=== PATIENT | female | born 2000 | race African-American/Black ===

== ENCOUNTER 2023-03-18 10:43 | Emergency (ER) | payer MEDICAID, SELFPAY ==
[2023-03-18 10:46] VITALS: BP 119/76; PULSE 85; RESP 18; TEMP 36.6; O2SAT 97; BMI 30.6
--- NOTE | 2023-03-18 11:00 | ED_ITS ---
HPI - General Chief complaint: OB/Uterine Contractions Stated complaint: ISSUES 6 WEEKS AND 3 DAYS Time Seen by Provider: 03/18/23 11:00 Source: patient Mode of arrival: walk-in Limitations: no limitations History of Present Illness HPI Narrative: Patient presents to emergency department complaining of abdominal cramping. Patient states she is 6 weeks' gestation has not seen an GEOTHERMAL SYSTEM INSTALLER. Her GEOTHERMAL SYSTEM INSTALLER is Dr. Hodge. She states in the last 3 days she's had intermittent cramping and she is concerned as she is a G2. P0 1. She had a miscarriage in the 1st trimester with her previous . She denies any vaginal bleeding, discharge. She does not know what his her type and Rh. Patient denies any trauma. She denies any fever, chills, or cough. She denies any chest, shortness of breath. She denies any nausea, vomiting, diarrhea, or constipation. Related Data Home Medications Medication Instructions Recorded Confirmed No Known Home Medications 03/18/23 03/18/23 Allergies Allergy/AdvReac Type Severity Reaction Status Date / Time No Known Drug Allergies Allergy Verified 03/18/23 10:51 Review of Systems ROS Status of ROS 10 or more systems reviewed and unremarkable except as noted in history and below Exam Narrative Exam Narrative: Nurses notes and vital signs reviewed and patient is not hypoxic. General: Nontoxic, Well-appearing and in no apparent distress. Skin: Warm, dry, no pallor noted. No Rash Head: Normocephalic, atraumatic. Neck: Supple, non-tender. Eye: Pupils are equal, round and EOMI. No scleral icterus. Ears, Nose, Mouth, and Throat: TM clear, no posterior oropharynx erythema or nasal mucosal hypertrophy, uvula is mid-line Oral mucosa is moist Cardiovascular: Regular Rate and Rhythm without murmur, gallop or rub. Respiratory: No accessory muscle use or respiratory distress. Lungs are clear to auscultation, no wheezing, rales or rhonchi Chest Wall: no tenderness Back: No midline thoracic or lumbar vertebral tenderness. No CVA tenderness Musculoskeletal: normal ROM, no calf or popliteal tenderness, no lower extremity edema/swelling GI: Abdomen is soft, non-distended. Normal bowel sounds. No masses appreciated. No tenderness to palpation. No rebound, guarding, or rigidity noted. Neurological: A&O x4. No cranial nerve dysfunction observed. No truncal ataxia. Moves all extremities. Sensation intact. Psychiatric: Cooperative and interactive. Normal mood and affect. Constitutional Vital Signs, click to edit/add: Last Vital Signs Temp 98 F 03/18/23 10:46 Pulse 85 03/18/23 10:46 Resp 18 03/18/23 10:46 BP 119/76 03/18/23 10:46 Pulse Ox 97 03/18/23 10:46 O2 Del Method Room Air 03/18/23 10:46 Course Vital Signs Vital signs: Vital Signs Temperature 98 F 03/18/23 10:46 Pulse Rate 85 03/18/23 10:46 Respiratory Rate 18 03/18/23 10:46 Blood Pressure 119/76 03/18/23 10:46 Pulse Oximetry 97 03/18/23 10:46 Oxygen Delivery Method Room Air 03/18/23 10:46 Temperature 98 F 03/18/23 10:46 Pulse Rate 85 03/18/23 10:46 Respiratory Rate 18 03/18/23 10:46 Blood Pressure 119/76 03/18/23 10:46 Pulse Oximetry 97 03/18/23 10:46 Oxygen Delivery Method Room Air 03/18/23 10:46 MDM - OB/Uterine Contractions MDM Narrative Medical decision making narrative: Pelvic ultrasound was done and a quantitative level was obtained. Live intrauterine 6 weeks 4 days. Quantitative levels are stable. pt was reassured. She is stable for outpatient follow-up and treatment. At this time the patient is without objective evidence of an acute process requiring hospitalization or inpatient management. The patient has remained hemodynamically stable. No additional indication for emergent studies at this time. I answered all questions. Discussed discharge instructions including standard anticipatory guidance and what should prompt a return to the emergency department, including if they get worse are not getting better or develops any new or concerning symptoms. I've given them specific time frame in which to follow-up, and who to follow-up with. The patient demonstrates understanding. Patient is nontoxic and stable for discharge with outpatient follow-up. This note was created with the assistance of a speech recognition program. Although the intention is to generate documents that actually reflects the content of the visit, no guarantees can be provided that every mistake has been identified and corrected by editing. Lab Data Attestation: I reviewed the patient's lab results. Labs: Lab Results 03/18/23 03/18/23 Range/Units 11:11 11:12 HCG, Quant 46845 mIU/mL Urine Color Yellow (YELLOW) Urine Clarity Clear (CLEAR) Urine pH 7.0 (5.0-9.0) Ur Specific [place] 1.015 (1.005-1.025) Urine Protein Negative (NEG/TRACE) mg/dL Urine Glucose (UA) Negative (NEGATIVE) mg/dL Urine Ketones Negative (NEGATIVE) mg/dL Urine Occult Blood Negative (NEGATIVE) Urine Nitrite Negative (NEGATIVE) Urine Bilirubin Negative (NEGATIVE) Urine Urobilinogen 0.2 (0.2-1.0) EU/dL Ur Leukocyte Esterase Negative (NEGATIVE) Discharge Plan Discharge Chief Complaint: OB/Uterine Contractions Clinical Impression: Intrauterine normal Patient Disposition: Home, Self-Care Time of Disposition Decision: 12:30 Condition: Good Mode of Transportation: Private Vehicle Prescriptions / Home Meds: No Action No Known Home Medications Instructions: (ED) Stand Alone Forms: Portal Instructions Referrals: Andrzej Hodge DO [Physician] - 1 week Discharge Date/Time: 03/18/23 12:37
--- NOTE | 2023-03-18 11:00 | US_ITS ---
The [place] [id number] Patient Name: CAMERON CHAVEZ MRN: [id number] date: 2000 Sex: F Assigned Patient Location: ER Current Patient Location: ER Accession/Order Number: [id number] Exam Date: 03/18/2023 11:15 Report Date: 03/18/2023 12:23 At the request of: NATASHA CAMARA Procedure: US OB transvaginal EXAMINATION: US OB transvaginal HISTORY: preg, cramping COMPARISON: No relevant comparison available. FINDINGS: Transvaginal imaging Bonds intrauterine gestation Gestational sac: 1.41 cm, 5 weeks 4 days CRL: 0.66 cm, 6 weeks 4 days Yolk sac: 1.9 mm Heart rate: 1 21 bpm Cervix: Closed, 3.8 cm The right ovary is significant for 6.1 cm cystic lesion. Small amount of fluid surrounding the left ovary. Clinical age: 6 weeks 1 day Clinical FERN: 11/10/2023 Ultrasound age: 6 weeks 4 days Ultrasound FERN: 11/07/2023 US/US OB transvaginal IMPRESSION: Viable bonds intrauterine gestation measuring 6 weeks 4 days Electronically authenticated by: PIPPA ORTEGA Date: 03/18/2023 12:23
[2023-03-18 11:23] LABS: Bilirubin Urine NEGATIVE (NEGATIVE); Blood Urine NEGATIVE (NEGATIVE); Clarity Urine CLEAR (CLEAR); Color Urine YELLOW (YELLOW); Glucose Urine UA NEGATIVE (NEGATIVE); Ketones Urine NEGATIVE (NEGATIVE); Leukocyte Esterase Urine NEGATIVE (NEGATIVE); Nitrite Urine NEGATIVE (NEGATIVE); Protein Urine NEGATIVE (NEG/TRACE); Specific Gravity Urine 1.015 (1.005-1.025); Urobilinogen Urine 0.2 EU/dL (0.2-1.0)
[2023-03-18 11:25] LABS: Urine Microscopic Indicated NO
[2023-03-18 12:12] LABS: HCG Quantitative 27147 mIU/mL
== END 2023-03-18 12:37 | disposition home or self-care (01) ==
PROVIDERS: Emergency Provider Emergency Medicine
DX: O26.891 Other specified pregnancy related conditions, first trimester (principal); R10.9 Unspecified abdominal pain; Z3A.01 Less than 8 weeks gestation of pregnancy
CPT/HCPCS: 36415; 76817; 81003; 84702; 99284

== ENCOUNTER 2023-04-04 13:11 | Emergency (ER) | payer MEDICAID, SELFPAY ==
[2023-04-04 13:13] VITALS: BP 123/73; PULSE 89; RESP 18; O2SAT 98; BMI 27.8
== END 2023-04-04 13:40 | disposition left against medical advice (07) ==
PROVIDERS: Emergency Provider Emergency Medicine
DX: Z53.21 Procedure and treatment not carried out due to patient leaving prior to being seen by health care provider (principal)

== ENCOUNTER 2023-04-08 17:03 | Emergency (ER) | payer MEDICAID, SELFPAY ==
[2023-04-08 17:09] VITALS: BP 135/84; PULSE 70; RESP 20; TEMP 36.7; O2SAT 99; BMI 30.7
--- NOTE | 2023-04-08 17:19 | ED_ITS ---
HPI - Abdominal Pain General Chief Complaint: Abdominal Pain Stated Complaint: Adbominal Pain Time Seen by Provider: 04/08/23 17:08 Mode of arrival: walk-in History of Present Illness HPI narrative: 22-year-old female presents for abdominal pain. She's , between nine and ten weeks. She's had no vaginal bleeding and the pain has been moving around her abdomen and she's worried about having a miscarriage. She's been one time previously and had a miscarriage at nine weeks. No trauma fever or vomiting or back pain. Related Data Home Medications Medication Instructions Recorded Confirmed DAILY 04/08/23 Allergies Allergy/AdvReac Type Severity Reaction Status Date / Time No Known Drug Allergies Allergy Verified 03/18/23 10:51 Review of Systems ROS Narrative A ten point review of systems is negative except as noted above. PFSH PFS Social History Smoking status: Current every day smoker Exam Narrative Exam Narrative: Nurses note and vital signs reviewed and patient is not hypoxic. General: The patient appears well and in no apparent distress. Patient is resting comfortably on cart. Skin: Warm, dry, no pallor noted. There is no rash noted. Head: Normocephalic, atraumatic Eye: Normal conjunctiva, no drainage Ears, Nose, Mouth, and Throat: oral mucosa is moist. Nares patent. Cardiovascular: Regular Rate and Rhythm Respiratory: Patient is in no distress, no accessory muscle use, lungs are clear to auscultation, no wheezing, rales or rhonchi Back: non-tender, no CVA tenderness bilaterally to percussion. GI: soft, mild tenderness present diffusely Musculoskeletal: The patient has no evidence of calf tenderness, no pitting edema, symmetrical pulses noted bilaterally Neurological: A&O, normal speech Psychiatric: Cooperative Constitutional Vital Signs, click to edit/add: Last Vital Signs Temp 98.1 F 04/08/23 17:09 Pulse 70 04/08/23 17:09 Resp 20 04/08/23 17:09 BP 135/84 04/08/23 17:09 Pulse Ox 99 04/08/23 17:09 O2 Del Method Room Air 04/08/23 17:09 Course Vital Signs Vital signs: Vital Signs Temperature 98.1 F 04/08/23 17:09 Pulse Rate 70 04/08/23 17:09 Respiratory Rate 20 04/08/23 17:09 Blood Pressure 135/84 04/08/23 17:09 Pulse Oximetry 99 04/08/23 17:09 Oxygen Delivery Method Room Air 04/08/23 17:09 Temperature 98.1 F 04/08/23 17:09 Pulse Rate 70 04/08/23 17:09 Respiratory Rate 20 04/08/23 17:09 Blood Pressure 135/84 04/08/23 17:09 Pulse Oximetry 99 04/08/23 17:09 Oxygen Delivery Method Room Air 04/08/23 17:09 MDM - Abdominal Pain MDM Narrative Medical decision making narrative: ultrasound shows normal IUP and she is reassured and she'll be discharged home. Treatment diagnosis and follow up are discussed with the patient Differential Diagnosis Differential diagnosis: Likely other (miscarriage) Lab Data Attestation: I reviewed the patient's lab results. Labs: Lab Results 04/08/23 Range/Units 17:25 WBC 11.9 H (4.0-11.0) 10^3/uL RBC 4.02 L (4.20-5.40) 10^6/uL Hgb 11.1 L (12.0-16.0) g/dL Hct 33.6 L (36.0-48.0) % MCV 83.6 (81.0-99.0) fL MCH 27.6 (26.7-34.0) pg MCHC 33.0 (29.9-35.2) g/dL RDW 13.2 (11.0-15.0) % Plt Count 325 (150-450) 10^3/uL MPV 9.9 (9.5-13.5) fL Neut % (Auto) 69.1 (43.0-75.0) % Lymph % (Auto) 21.6 (20.5-60.0) % [place] % (Auto) 8.0 (1.7-12.0) % Eos % (Auto) 0.7 L (0.9-7.0) % Baso % (Auto) 0.3 (0.2-2.0) % Neut # (Auto) 8.2 H (1.4-6.5) 10^3/uL Lymph # (Auto) 2.6 (1.2-3.8) 10^3/uL [place] # (Auto) 1.0 H (0.3-0.8) 10^3/uL Eos # (Auto) 0.1 (0.0-0.7) 10^3/uL Baso # (Auto) 0.0 (0.0-0.1) 10^3/uL Abs Immat Gran (auto) 0.03 (0.00-0.03) 10^3/uL Imm/Tot Granulo (auto) 0.3 (0.0-0.5) % Sodium 134 L (136-145) mmol/L Potassium 3.5 (3.5-5.1) mmol/L Chloride 101 (98-107) mmol/L Carbon Dioxide 24.7 (21.0-32.0) mmol/L Anion Gap 11.8 BUN 7.0 (7.0-18.0) mg/dL Creatinine 0.62 (0.55-1.02) mg/dL Est GFR ( Amer) >60 (>=60) Est GFR (Non-Af Amer) >60 (>=60) BUN/Creatinine Ratio 11.3 Glucose 86 (74-106) mg/dL Calcium 8.9 (8.5-10.1) mg/dL HCG, Quant 74237 mIU/mL Imaging Data pelvic ultrasound: Radiologist's impression: Procedure: US OB transvaginal PROCEDURE: US OB transvaginal, 04/08/2023 5:45 PM EDT CLINICAL INDICATIONS: Encounter for first trimester , right-sided pelvic pain for one day 2 para 0, AB 1 Expected gestational age: 9 weeks 1 day Expected FERN: 11/10/2023 COMPARISON: 03/18/2023 TECHNIQUE: Transvaginal first trimester obstetric sonogram, grayscale color and spectral assessment. FINDINGS: Uterus is retroverted. A single intrauterine is identified. Intrauterine gestational sac, normal yolk sac, embryonic pole is seen. Cardiac activity is noted. 170 bpm Mean gestational sac size: 3.62 cm, 18 weeks 6 days Embryonic crown-rump length: 2.72 cm Sonographic gestational age: 9 weeks 2 days +/- 5 days Sonographic FERN 11/09/2023 No significant perigestational hemorrhage Maternal right ovary: 4.6 x 2.9 x 3.6 cm, volume 25 mL. Normal sonographic morphology. 2.1 cm maternal right ovarian corpus luteal cyst favored. Maternal left ovary: 2.2 x 2.0 x 2.0 cm, volume 4 mL. Normal sonographic morphology. 3.7 cm cervical length by transvaginal assessment, closed. DUPLEX PELVIC VASCULATURE: There is intact flow within the ovarian tissue bilaterally by color-flow assessment. Arterial spectral tracing is identified from within. Right resistive index 0.68. Left 0.32. IMPRESSION: 1. Single living intrauterine , sonographic gestational age of 9 weeks 2 days +/- 5 days. There is appropriate growth from previous exam 2. Sonographic FERN 11/09/2023 3. No perigestational hemorrhage 4. Retroverted uterus 5. 3.7 cm transvaginal cervical length, closed 6. 2.1 cm maternal right ovarian corpus luteal cyst 7. Normal maternal left ovarian sonographic morphology 8. No sonographic sign of maternal adnexal torsion Electronically authenticated by: LC EL Date: 04/08/2023 18:25 Discharge Plan Discharge Chief Complaint: Abdominal Pain Clinical Impression: Abdominal pain Patient Disposition: Home, Self-Care Time of Disposition Decision: 18:44 Condition: Good Mode of Transportation: Private Vehicle Prescriptions / Home Meds: No Action DAILY Instructions: Abdominal Pain in (ED) Stand Alone Forms: Portal Instructions Referrals: Physician,Non-Staff, MD [Primary Care Provider] - 1 week
[2023-04-08 17:32] LABS: Basophils Percent Auto 0.3 % (0.2-2.0); Eosinophils Absolute Auto 0.1 10^3/uL (0.0-0.7); Eosinophils Percent Auto 0.7 % (0.9-7.0); Hematocrit 33.6 % (36.0-48.0); Hemoglobin 11.1 g/dL (12.0-16.0); Immature Granulocytes Abs Auto 0.03 10^3/uL (0.00-0.03); Immature Granulocytes Pct Auto 0.3 % (0.0-0.5); Lymphocytes Absolute Auto 2.6 10^3/uL (1.2-3.8); Lymphocytes Percent Auto 21.6 % (20.5-60.0); Mean Corpuscular Hemoglobin 27.6 pg (26.7-34.0); Mean Corpuscular Volume 83.6 fL (81.0-99.0); Mean Platelet Volume 9.9 fL (9.5-13.5); Neutrophils Absolute Auto 8.2 10^3/uL (1.4-6.5); Neutrophils Percent Auto 69.1 % (43.0-75.0); Platelet Count 325 10^3/uL (150-450); Red Blood Count 4.02 10^6/uL (4.20-5.40); Red Cell Distribution Width 13.2 % (11.0-15.0); White Blood Count 11.9 10^3/uL (4.0-11.0)
[2023-04-08 18:09] LABS: Anion Gap 11.8; BUN Creatinine Ratio 11.3; Calcium 8.9 mg/dL (8.5-10.1); Carbon Dioxide 24.7 mmol/L (21.0-32.0); Chloride 101 mmol/L (98-107); Estimated GFR (African America >60 (>=60); Estimated GFR (Non-African Ame >60 (>=60); Glucose 86 mg/dL (74-106); Potassium 3.5 mmol/L (3.5-5.1); Sodium 134 mmol/L (136-145)
== END 2023-04-08 18:51 | disposition home or self-care (01) ==
PROVIDERS: Emergency Provider Emergency Medicine
DX: O26.891 Other specified pregnancy related conditions, first trimester (principal); R10.9 Unspecified abdominal pain; Z3A.09 9 weeks gestation of pregnancy; O99.331 Smoking (tobacco) complicating pregnancy, first trimester; F17.210 Nicotine dependence, cigarettes, uncomplicated
CPT/HCPCS: 36415; 76817; 80048; 84702; 85025; 99284

== ENCOUNTER 2023-04-14 13:02 | Outpatient (OUT) | payer MEDICAID, SELFPAY ==
[2023-04-14 14:19] LABS: Basophils Percent Auto 0.3 % (0.2-2.0); Eosinophils Absolute Auto 0.1 10^3/uL (0.0-0.7); Eosinophils Percent Auto 0.7 % (0.9-7.0); Hematocrit 35.7 % (36.0-48.0); Hemoglobin 11.3 g/dL (12.0-16.0); Immature Granulocytes Abs Auto 0.01 10^3/uL (0.00-0.03); Immature Granulocytes Pct Auto 0.1 % (0.0-0.5); Lymphocytes Absolute Auto 2.1 10^3/uL (1.2-3.8); Lymphocytes Percent Auto 22.3 % (20.5-60.0); Mean Corpuscular HGB Conc 31.7 g/dL (29.9-35.2); Mean Corpuscular Volume 85.2 fL (81.0-99.0); Mean Platelet Volume 10.6 fL (9.5-13.5); Monocytes Absolute Auto 0.8 10^3/uL (0.3-0.8); Neutrophils Absolute Auto 6.4 10^3/uL (1.4-6.5); Neutrophils Percent Auto 68.6 % (43.0-75.0); Platelet Count 343 10^3/uL (150-450); Red Blood Count 4.19 10^6/uL (4.20-5.40); Red Cell Distribution Width 13.2 % (11.0-15.0); White Blood Count 9.4 10^3/uL (4.0-11.0)
[2023-04-14 14:42] LABS: BOX Test Sent Out Y
[2023-04-14 15:28] LABS: Thyroid Stimulating Hormone 1.633 uIU/mL (0.358-3.740)
[2023-04-14 15:38] LABS: Estimated Average Glucose 105 mg/dL; Glycohemoglobin A1C 5.3 % (4.5-6.2)
[2023-04-15 06:08] LABS: HBsAg Screen Negative (Negative); HCV Ab Non Reactive (Non Reactive); HIV Ab/p24 Ag Screen Non Reactive (Non Reactive)
[2023-04-15 07:08] LABS: Rubella Antibodies, IgG 2.41 index (Immune >0.99)
[2023-04-15 10:08] LABS: Rapid Plasma Reagin, Quant Non Reactive titer (NonRea<1:1)
== END 2023-04-14 13:03 | disposition home or self-care (01) ==
LOC: LAB 13:06
PROVIDERS: Visit Provider Obstetrics & Gynecology
DX: Z34.80 Encounter for supervision of other normal pregnancy, unspecified trimester (principal); N92.6 Irregular menstruation, unspecified
CPT/HCPCS: 36415; 83036; 84443; 85025; 86592; 86762; 86803; 86850; 86900; 86901; 87086; 87340; 87389

== ENCOUNTER 2023-05-16 12:58 | Outpatient (OUT) | payer MEDICAID, SELFPAY ==
--- NOTE | 2023-05-16 12:59 | US_ITS ---
The [address] [address] Patient Name: CAMERON CHAVEZ MRN: [id number] date: 2000 Sex: F Assigned Patient Location: Current Patient Location: US Accession/Order Number: [id number] Exam Date: 05/16/2023 13:00 Report Date: 05/16/2023 22:09 At the request of: TERESITA ARTHUR Procedure: US OB <= 14 weeks fetus EXAMINATION: US OB <= 14 weeks fetus HISTORY: FOLLOW UP OVARIAN CYST COMPARISON: No relevant comparison available. FINDINGS: GESTATIONAL SAC: Present and normal appearing. YOLK SAC: Absent. POLE: Present and normal appearing. CARDIAC: 147 bpm UTERUS: Normal size and appearance. OVARIES: Right: Contains a slightly complex cyst, 1.4 cm in diameter; likely resolving corpus lutein cyst. Left: Normal. CUL-DE-SAC: Normal. OTHER: None. AGE BY LMP: 14 weeks 4 days FERN BY LMP: 11/10/2023 US/US OB <= 14 weeks fetus IMPRESSION: 1. Single live intrauterine . 2. Decrease in size of the right ovarian cyst favoring benign etiology. Electronically authenticated by: ASHLEY NOLE Date: 05/16/2023 22:09
== END 2023-05-16 12:59 | disposition home or self-care (01) ==
LOC: US 12:59
PROVIDERS: Visit Provider Obstetrics & Gynecology
DX: O34.82 Maternal care for other abnormalities of pelvic organs, second trimester (principal); N83.201 Unspecified ovarian cyst, right side; Z3A.14 14 weeks gestation of pregnancy
CPT/HCPCS: 76801; 76816

== ENCOUNTER 2023-06-21 11:04 | Outpatient (OUT) | payer MEDICAID, SELFPAY ==
[2023-06-23 02:06] LABS: AFP Value 65.8 ng/mL (.); Gest. Age on Collection Date 19.7 weeks (.); Insulin Dep Diabetes No (.); Maternal Age At EDD 24.3 yr (.); OSBR Risk 1 IN 10000 (.); Results Report (.)
== END 2023-06-21 11:05 | disposition home or self-care (01) ==
PROVIDERS: Visit Provider Physician Assistant
DX: Z34.92 Encounter for supervision of normal pregnancy, unspecified, second trimester (principal); Z36.1 Encounter for antenatal screening for raised alphafetoprotein level
CPT/HCPCS: 36415; 82105

== ENCOUNTER 2023-06-27 12:59 | Outpatient (OUT) | payer MEDICAID, SELFPAY ==
--- NOTE | 2023-06-27 13:01 | US_ITS ---
[address] [address] Patient Name: CHULA CHAVEZ MRN: [facility]:[id number] date: 2000 Sex: F Assigned Patient Location: US Current Patient Location: US Accession/Order Number: [id number] Exam Date: 06/27/2023 13:07 Report Date: 06/27/2023 15:13 At the request of: TERESITA ARTHUR Procedure: US OB anatomy EXAMINATION: US OB anatomy, US OB transvaginal HISTORY: ENCOUNTER FOR ANATOMIC SURVEY Z36.89 COMPARISON: Ultrasound OB < 14 weeks 05/16/2023 TECHNIQUE: Transabdominal sonographic examination was performed for obstetrical and evaluation. FINDINGS: Number: 1 Heart Rate: 160.0 bpm H.B. /min Amniotic Fluid Volume: Subjectively normal Placental Location: ANTERIOR with lower margin 2.8 cm from internal os. Venous pond within placenta, likely incidental. Cervix Length: 4.4 cm, closed. ANATOMY: Normal Structures -cerebellum, choroid plexus, cisterna magna, lateral cerebral ventricles, orbits, midline falx, hard palate, four-chamber heart, stomach, kidneys, bladder, umbilical cord insertion into abdomen, three-vessel cord, cervical spine, thoracic spine, lumbar spine, sacral spine, right upper extremity, left upper extremity, right lower extremity, left lower extremity. SUBOPTIMALLY SEEN: Cardiac outflow tracts due to position. ABNORMALITIES: None BIOMETRY: BPD: 5.0 cm 21 weeks 2 days ; 76% HC: 18.9 cm 21 weeks 1 days; 70% AC: 16.6 cm 21 weeks 4 days; 78% FL: 3.5 cm 21 weeks 1 days ; 64% EFW:421.6 grams; 87% FL/AC: 21.3 FL/BPD: 70.4 HC/AC: 1.1 GESTATIONAL AGE: Age by EDC: 20 weeks 4 days FERN by EDC: 11/10/2023 Age by current US: 21 weeks 2 days FERN by current US: 11/07/2023 US/US OB anatomy IMPRESSION: 1. Single live intrauterine with growth detailed above. 2. Suboptimal visualization of the cardiac outflow tracts due to position. 3. Anterior low-lying placenta. Electronically authenticated by: ASHLEY NOEL Date: 06/27/2023 15:13
--- NOTE | 2023-06-27 13:02 | US_ITS ---
[address] [address] Patient Name: CHULA CHAVEZ MRN: [id number] date: 2000 Sex: F Assigned Patient Location: US Current Patient Location: US Accession/Order Number: [id number] Exam Date: 06/27/2023 13:07 Report Date: 06/27/2023 15:13 At the request of: TERESITA ARTHUR Procedure: US OB transvaginal EXAMINATION: US OB anatomy, US OB transvaginal HISTORY: ENCOUNTER FOR ANATOMIC SURVEY Z36.89 COMPARISON: Ultrasound OB < 14 weeks 05/16/2023 TECHNIQUE: Transabdominal sonographic examination was performed for obstetrical and evaluation. FINDINGS: Number: 1 Heart Rate: 160.0 bpm H.B. /min Amniotic Fluid Volume: Subjectively normal Placental Location: ANTERIOR with lower margin 2.8 cm from internal os. Venous pond within placenta, likely incidental. Cervix Length: 4.4 cm, closed. ANATOMY: Normal Structures -cerebellum, choroid plexus, cisterna magna, lateral cerebral ventricles, orbits, midline falx, hard palate, four-chamber heart, stomach, kidneys, bladder, umbilical cord insertion into abdomen, three-vessel cord, cervical spine, thoracic spine, lumbar spine, sacral spine, right upper extremity, left upper extremity, right lower extremity, left lower extremity. SUBOPTIMALLY SEEN: Cardiac outflow tracts due to position. ABNORMALITIES: None BIOMETRY: BPD: 5.0 cm 21 weeks 2 days ; 76% HC: 18.9 cm 21 weeks 1 days; 70% AC: 16.6 cm 21 weeks 4 days; 78% FL: 3.5 cm 21 weeks 1 days ; 64% EFW:421.6 grams; 87% FL/AC: 21.3 FL/BPD: 70.4 HC/AC: 1.1 GESTATIONAL AGE: Age by EDC: 20 weeks 4 days FERN by EDC: 11/10/2023 Age by current US: 21 weeks 2 days FERN by current US: 11/07/2023 US/US OB transvaginal IMPRESSION: 1. Single live intrauterine with growth detailed above. 2. Suboptimal visualization of the cardiac outflow tracts due to position. 3. Anterior low-lying placenta. Electronically authenticated by: ASHLEY NOEL Date: 06/27/2023 15:13
== END 2023-06-27 13:00 | disposition home or self-care (01) ==
LOC: US 12:59
PROVIDERS: Visit Provider Obstetrics & Gynecology
DX: Z36.89 Encounter for other specified antenatal screening (principal); Z3A.20 20 weeks gestation of pregnancy; O44.42 Low lying placenta NOS or without hemorrhage, second trimester
CPT/HCPCS: 76805; 76817

== ENCOUNTER 2023-06-29 00:01 | Emergency (ER) | payer MEDICAID, SELFPAY ==
[2023-06-29 00:18] VITALS: BP 101/79; PULSE 63; RESP 16; TEMP 36.4; O2SAT 100
--- NOTE | 2023-06-29 00:37 | ED_ITS ---
HPI - Abdominal Pain General Chief Complaint: Abdominal Pain Stated Complaint: RT SIDED PAIN/ 20 WKS PREG Time Seen by Provider: 06/29/23 00:21 Source: patient History of Present Illness HPI narrative: This 22-year-old female who is almost 21 weeks presents for evaluation of right-sided abdominal pain. She states she was at work and was lifting light boxes. She states that she had a pain in the right side of her abdomen and then it went away. The pain returned after she lifted up and other heavy box. She has no nausea or vomiting. She has not had any vaginal discharge or bleeding. Related Data Home Medications Medication Instructions Recorded Confirmed DAILY 04/08/23 Allergies Allergy/AdvReac Type Severity Reaction Status Date / Time No Known Drug Allergies Allergy Verified 06/29/23 00:23 Review of Systems ROS Status of ROS 10 or more systems reviewed and unremark able except as noted in history and below [facility] Social History Smoking status: Current every day smoker Exam Narrative Exam Narrative: Nurses note and vital signs reviewed and patient is not hypoxic. General: The patient appears well and in no apparent distress. Patient is resting comfortably on cart. Skin: Warm, dry, no pallor noted. There is no rash noted. Head: Normocephalic, atraumatic Eye: Normal conjunctiva, no drainage, EOMI. PERRL Ears, Nose, Mouth, and Throat: oral mucosa is moist. Cardiovascular: Regular Rate and Rhythm Respiratory: Patient is in no distress, no accessory muscle use, lungs are clear to auscultation, no wheezing, rales or rhonchi Back: non-tender, no CVA tenderness bilaterally to percussion. GI: Normal bowel sounds, gravid uterus at the level of the umbilicus, no RUQ tenderness, rebound, guarding or rigidity, heart tones detectable in the 150s Musculoskeletal: The patient has no evidence of calf tenderness, no pitting edema, symmetrical pulses noted bilaterally Neurological: A&O x4, normal speech Psychiatric: Cooperative Constitutional Vital Signs, click to edit/add: Last Vital Signs Temp 97.6 F 06/29/23 00:18 Pulse 63 06/29/23 00:18 Resp 16 06/29/23 00:18 BP 101/79 06/29/23 00:18 Pulse Ox 100 06/29/23 00:18 O2 Del Method Room Air 06/29/23 00:18 Course Vital Signs Vital signs: Vital Signs Temperature 97.6 F 06/29/23 00:18 Pulse Rate 63 06/29/23 00:18 Respiratory Rate 16 06/29/23 00:18 Blood Pressure 101/79 06/29/23 00:18 Pulse Oximetry 100 06/29/23 00:18 Oxygen Delivery Method Room Air 06/29/23 00:18 Temperature 97.6 F 06/29/23 00:18 Pulse Rate 63 06/29/23 00:18 Respiratory Rate 16 06/29/23 00:18 Blood Pressure 101/79 06/29/23 00:18 Pulse Oximetry 100 06/29/23 00:18 Oxygen Delivery Method Room Air 06/29/23 00:18 MDM - Abdominal Pain MDM Narrative Medical decision making narrative: This 22-year-old female who is almost 21 heart presents for evaluation of 2 episodes of right upper quadrant abdominal pain while at work earlier tonight. She is afraid that something is wrong with her baby. She has normal heart tones but this is not consoling her. We called labor and delivery and she will be transferred up there for monitoring. The patient denied the need for any pain medication. She has not had a fever she has not had any leakage of fluid or vaginal bleeding. She is hemodynamically stable. She is a patient of Dr. Hodge. Discharge Plan Discharge Chief Complaint: Abdominal Pain Clinical Impression: Abdominal pain during Prescriptions / Home Meds: No Action DAILY Referrals: Physician,Non-Staff, MD [Primary Care Provider] - 1 week
== END 2023-06-29 00:44 | disposition home or self-care (01) ==
PROVIDERS: Emergency Provider Emergency Medicine
DX: O26.892 Other specified pregnancy related conditions, second trimester (principal); R10.11 Right upper quadrant pain; Z3A.20 20 weeks gestation of pregnancy; O99.332 Smoking (tobacco) complicating pregnancy, second trimester; F17.210 Nicotine dependence, cigarettes, uncomplicated
CPT/HCPCS: 99282

== ENCOUNTER 2023-06-29 00:43 | Observation (INO) | payer MEDICAID, SELFPAY | END 2023-06-29 01:40 | disposition home or self-care (01) | LOC: FBC 00:46 | PROVIDERS: Admitting Provider Obstetrics & Gynecology; Visit Provider Obstetrics & Gynecology | DX: O26.892 Other specified pregnancy related conditions, second trimester (principal); R10.11 Right upper quadrant pain; Z3A.20 20 weeks gestation of pregnancy; O99.332 Smoking (tobacco) complicating pregnancy, second trimester; F17.210 Nicotine dependence, cigarettes, uncomplicated | CPT/HCPCS: 99282; G0378; G0379 ==

== ENCOUNTER 2023-07-04 16:17 | Outpatient (OUT) | payer MEDICAID, SELFPAY ==
[2023-07-04 16:39] VITALS: TEMP 36.2
[2023-07-04 16:40] VITALS: BP 109/72; PULSE 86
[2023-07-04 16:51] LABS: Bilirubin Urine NEGATIVE (NEGATIVE); Blood Urine NEGATIVE (NEGATIVE); Clarity Urine SL CLOUDY (CLEAR); Color Urine LT. YELLOW (YELLOW); Glucose Urine UA NEGATIVE (NEGATIVE); Ketones Urine NEGATIVE (NEGATIVE); Leukocyte Esterase Urine NEGATIVE (NEGATIVE); Nitrite Urine NEGATIVE (NEGATIVE); Protein Urine NEGATIVE (NEG/TRACE); Urobilinogen Urine 0.2 EU/dL (0.2-1.0)
[2023-07-04 16:54] LABS: Urine Microscopic Indicated NO
[2023-07-04 17:00] LABS: Amnisure NEGATIVE (NEGATIVE)
--- NOTE | 2023-07-04 17:24 | US_ITS ---
[address] [address] Patient Name: CHULA CHAVEZ MRN: [id number] date: 2000 Sex: F Assigned Patient Location: [facility] [place] Current Patient Location: [facility] [place] Accession/Order Number: [id number] Exam Date: 07/04/2023 17:45 Report Date: 07/04/2023 18:53 At the request of: TERESITA ARTHUR Procedure: US OB amniotic fluid vol EXAM: US OB cervical length, US OB amniotic fluid vol 07/04/2023 3:50 PM PST, [id number], [id number] HISTORY: r/o srom. TECHNIQUE: Multiple longitudinal and transverse grayscale and color sonographic images of the intrauterine gestation and cervix were acquired. COMPARISON: OB ultrasound 06/27/2023. FINDINGS/IMPRESSION: Single live intrauterine gestation with normal heart rate of 152 bpm. Amniotic fluid index is within normal limits at 15.4 cm. Cervix is long and closed measuring of 4.37 cm. position is cephalic. Electronically authenticated by: ZEE SERRANO Date: 07/04/2023 18:53
--- NOTE | 2023-07-04 17:24 | US_ITS ---
[address] [address] Patient Name: CHULA CHAVEZ MRN: [id number] date: 2000 Sex: F Assigned Patient Location: [facility] Current Patient Location: [facility] [place] Accession/Order Number: [id number] Exam Date: 07/04/2023 17:45 Report Date: 07/04/2023 18:53 At the request of: TERESITA ARTHUR Procedure: US OB cervical length EXAM: US OB cervical length, US OB amniotic fluid vol 07/04/2023 3:50 PM PST, [id number], [id number] HISTORY: r/o srom. TECHNIQUE: Multiple longitudinal and transverse grayscale and color sonographic images of the intrauterine gestation and cervix were acquired. COMPARISON: OB ultrasound 06/27/2023. FINDINGS/IMPRESSION: Single live intrauterine gestation with normal heart rate of 152 bpm. Amniotic fluid index is within normal limits at 15.4 cm. Cervix is long and closed measuring of 4.37 cm. position is cephalic. Electronically authenticated by: ZEE SERRANO Date: 07/04/2023 18:53
== END 2023-07-04 18:10 | disposition home or self-care (01) ==
LOC: FBCO 16:18 → FBC 16:20
PROVIDERS: Visit Provider Obstetrics & Gynecology
DX: Z03.71 Encounter for suspected problem with amniotic cavity and membrane ruled out (principal)
CPT/HCPCS: 76815; 76817; 81003; 84112

== ENCOUNTER 2023-07-21 10:50 | Emergency (ER) | payer MEDICAID, SELFPAY ==
[2023-07-21 10:56] VITALS: BP 114/75; PULSE 102; RESP 16; TEMP 36.6; BMI 32.2
[2023-07-21 11:04] VITALS: O2SAT 98
--- OUTSIDE RECORDS SUMMARY | 2023-07-21 11:08 | XMS_ITS | CCD ---
Author Name Unknown Address [address] [place] [address] Organization [facility] Care Team Providers Care [employer] Teacher Name Role Phone ALEXIA BARRETT Attending Unavailable SANDHYATERESITA Munoz Attending Unavailable KARASIK ., DR HALE Attending Unavailabl e KARASIK ., DR HALE Admitting Unavailabl e KARASIK ., DR HALE Consulting Unavailabl e REQUEST, DR NONE LISTED Primary Care Unavaila ble KARASIK ., DR HALE Consulting Unavailabl e KARASIK ., DR HALE Attending Unavailabl e KARASIK ., DR HALE Admitting Unavailabl e REQUEST, NONE LISTED Primary Care Unavaila ble Alexander, Pippa Consulting Unavailable KARASIK ., DR HALE Attending Unavailabl e KARASIK ., DR HALE Admitting Unavailabl e KARASIK ., DR HALE Consulting Unavailabl e REQUEST, DR NONE LISTED Primary Care Unavaila ble JORDAN, DR PIPPA Whalen Consulting Unavailable BRANDEN, DR MAGDA Bryant Attending Unavailable BRANDEN, DR MAGDA Bryant Admitting Unavailable BRANDEN, DR MAGDA Bryant Consulting Unavailable REQUEST, NONE LISTED Primary Care Unavaila ble STEVEN ARELLANO Attending Unavailable EILEEN, STEVEN Admitting Unavailable EILEEN, STEVEN Consulting Unavailable REQUEST, NONE LISTED Primary Care Unavaila ble HOA ., NATASHA Attending Unavailable HOA ., NATASHA Admitting Unavailable HOA ., NATASHA Consulting Unavailable REQUEST, NONE LISTED Primary Care Unavaila ble SANDHYA ., DR LO Admitting Unavailable LIZZETTE HICKMAN Consulting Unavailable REQUEST, NONE LISTED Primary Care Unavaila ble SANDHYA ., DR LO Attending Unavailable SANDHYA ., DR LO Attending Unavailable SANDHYA ., DR LO Admitting Unavailable REQUEST, NONE LISTED Primary Care Unavaila ble SANDHYA ., DR LO Consulting Unavailable ZIEBER, DR ASHLEY Bryant Consulting Unavailable SHARP, TYESHA Consulting Unavailable JOSE II, BERTRAM Consulting Unavailable KARASIK ., DR HALE Attending Unavailabl e KARASIK ., DR HALE Admitting Unavailabl e KARASIK ., DR HALE Consulting Unavailabl e REQUEST, DR NONE LISTED Primary Care UnavailANTELMO Kang Consulting Unavailable KARASIK ., DR HALE Attending Unavailabl e KARASIK ., DR HALE Admitting Unavailabl e KARASIK ., DR HALE Consulting Unavailabl e REQUEST, DR NONE LISTED Primary Care Unavaila claire DOBBINS, MONICA Attending Unavailable SANDHYA, TERESITA Attending Unavailable Problems Active Problems Problem Classification Problem Date Documented Da te Episodic/Chronic Abdominal pain (1 source) Pelvic and perineal pain; Translations: [PELVIC AND PERINEAL PAIN] Onset: 10-15-2022 Episodic Cancer of cervix (4 sources) Low grade squamous intraepithelial lesion on cytologic smear of cervix (LGSIL); Translations: [LGSIL ON CYTOLOGIC SMEAR OF CERVIX] Onset: 11-10-2022 Episodic Gastrointestinal hemorrhage (4 sources) Melena; Translations: [MELENA] Onset: 10-22-2022 Episodic Other complications of (5 sources) Missed ; Translations: [MISSED ] Onset: 09-15-2022 Episodic Other and delivery including normal (4 sources) Encounter for test, result positive; Translations: [ENC TEST RESULT POSITIVE] Onset: 09-13-2022 Episodic Other screening for suspected conditions (not mental disorders or infectious disease) (5 sources) Encounter for screening for malignant neoplasm of cervix; Translations: [ENC SCREENING MALIG NEOPLASM CERV] Onset: 07-21-2022 Episodic Spontaneous (4 sources) Incomplete spontaneous without complication; Translations: [INCOMPL SPONT AB W/O COMPLICATION] Onset: 10-06-2022 Episodic Unclassified (3 sources) CONTACT W/AND (SUSP) EXPOS COVID-19; Translations: [CONTACT W/AND (SUSP) EXPOS COVID-19] Onset: 06-09-2022 Past or Other Problems Problem Classification Problem Date Documented Da te Episodic/Chronic Conditions associated with dizziness or vertigo (4 sources) Dizziness and giddiness; Translations: [DIZZINESS AND GIDDINESS] Onset: 08-16-2022 Episodic Other complications of (1 source) Other specified related conditions, first trimester; Translations: [OTH SPEC PREG RELATED COND 1ST TRI] Onset: 08-17-2022 Episodic Residual codes; unclassified (1 source) Less than 8 weeks gestation of ; Translations: [< 8 WEEKS GESTATION ] Onset: 08-17-2022 Episodic Unclassified (1 source) CONTACT W/AND (SUSP) EXPOS COVID-19; Translations: [CONTACT W/AND (SUSP) EXPOS COVID-19] Onset: 06-07-2022 Results Test Name Value Interpretation Reference Range Facility PAP ACOG PANEL 2: 21 to 29on 11-17-2022 . . [facility] Comment on above: Performed By: #### 4 [id number] #### [facility] [address] [place] [address] Dr. Aleah Peres Age Gdln ACOG Testing [facility] Comment on above: Performed By: #### 4 [id number] #### [facility] [address] [place] [address] Dr. Aleah Peres DIAGNOSIS: Comment [facility] Comment on above: Result Comment: NEGA TIVE FOR INTRAEPITHELIAL LESION OR MALIGNANCY. Performed By: #### 4 [id number] #### [facility] [address] [place] [address] Dr. Aleah Peres Methodology: Comment [facility] Comment on above: Result Comment: This liquid based ThinPrep(R) pap test was screened with the use of an image guided system. Performed By: #### 4 [id number] #### [facility] [address] [place] [address] Dr. Aleah Peres Note: Comment [facility] Comment on above: Result Comment: The Pap smear is a screening test designed to aid in the detection of premalignant and malignant conditions of the uterine cervix. It is not a diagnostic procedure and should not be used as the sole means of detecting cervical cancer. Both false-positive and false-negative reports do occur. . Performed By: #### 4 [id number] #### [facility] [address] [place] [address] Dr. Aleah Peres Performed by: Comment [facility] Comment on above: Result Comment: Annelise Martinez Corporate Events Director Performed By: #### 4 [id number] #### [facility] [address] [address] [address] Aleah Peres Reflex Criteria: Comment Normal [facility] Comment on above: Result Comment: The HPV DNA reflex criteria were not met with this specimen result therefore, no HPV testing was performed. . Performed By: #### 4 [id number] #### [facility] [address] [address] [address] Aleah Peres Specimen adequacy: Comment Normal [facility] Comment on above: Result Comment: Sati sfactory for evaluation. Endocervical and/or squamous metaplastic cells (endocervical component) are present. Performed By: #### 4 [id number] #### [facility] [address] [place] [address] Dr. Aleah Peres OCC BLD IMMUNO SCREENon 04-0 OCCULT BLOOD Negative Normal NEGATIVE [facility] Comment on above: Performed By: #### O BSCRN #### [facility] [address] [place] [address] Dr. Aleah Peres SURGICAL PATH REPORTon 10-11 SURGICAL PATH REPORT [facility] Department of Pathology [address] [place] [id number] Name: CAMERON CHAVEZ : 2000 [facility] [id number] Number: Gender [facility] : n: Admit 22 years Attending ALEXIA BARRETT Age: Provider: ALEXIA Yuan Provider: [facility] Report ng: ACCESSION: COLLECTED DATE/TIME: RECEIVED DATE/TIME: PATHOLOGIST: [id number] 10/08/2022 12:03 EDT 10/08/2022 12:03 EDT TOM AGUERO MD Final Diagnosis Report for [facility] [place] RETAINED PRODUCTS OF CONCEPTION: - CHORIONIC VILLI. TOM AGUERO PATHOLOGIST (Electronic Signature) Date Verified 10/11/2022 LN Clinical Data PRE-OP DIAGNOSIS: Not specified POST-OP DIAGNOSIS: Retained products of conception PROCEDURES: D and C with suction SPECIMEN: Products of conception / Ambulatory surgery Gross Description Labeled products of conception. Received in formalin in a suction sock are multiple irregular segments of medrano pink to red fine granular soft tissue. These measure in aggregate 5.0 x 2.0 x 0.5 cm. There are no grossly identifiable parts. The specimen is entirely submitted in two cassettes. MP/ ald 10/08/2022 Tissue pathology report for: [facility], [address] [place] [address]; ____ ____ Print 10/11/2022 15:01 EDT Number: Date/Time: [facility] Department of Pathology [address] [place] [phone] [phone] Name: CAMERON CHAVEZ : 2000 [facility] [id number] Number: Gender Female [facility] : n: Admit 22 years Attending ALEXIA BARRETT Age: Provider: Ordering ALEXIA BARRETT Provider: [facility] Report ng: ACCESSION: COLLECTED DATE/TIME: RECEIVED DATE/TIME: PATHOLOGIST: [id number] 10/08/2022 12:03 EDT 10/08/2022 12:03 EDT LACI KHAN, TOM Gross Description PATHOLOGY SERVICES PROVIDED BY [employer] , [facility] (CLIA #[id number]) in cooperation with [facility] at [address] [place] [address] ( CLIA #[id number]) Codes CPT CODE: 22957 ____ ____ Print 10/11/2022 15:01 EDT Number: Date/Time: Normal [facility] Comment on above: Performed By: #### [id number] #### [facility] Laboratory Services [address] [place] [address] Quantitative Analyst Marketing: Tom Aguero MD URon 10-08-2022 , QUAL Negative Normal NEGATIVE [facility] Comment on above: Performed By: #### P REGU #### [facility] [address] [place], [place] [id number] Dr. Aleah Peres US PELVIS AND TRANSVAGon US PELVIS AND TRANSVAG EXAMINATION: US PELVIS AND TRANSVAG HISTORY: Pelvic and perineal pain COMPARISON: No relevant comparison available. FINDINGS: The uterus is retroverted, retroflexed. The uterus is normal in size and contour measuring 7.9 x 3.6 x 5.5 cm. The endometrium is heterogeneous. There is subtle hypervascularity identified along the posterior fundal endometrial myometrial junction which is indeterminate The ovaries are normal in size, contour and echotexture. Normal color Doppler flow. Free pelvic fluid, upper limits of normal IMPRESSION: Subtle heterogeneous hypervascularity posterior fundal endometrial/myometrial junction. This is indeterminate and could represent a small amount of retained products of conception. Serial beta hCG and/or follow-up ultrasound suggested Electronically authenticated by: PIPPA ORTEGA Date: 2022-10-06 14:55 Normal [facility] SURGICAL PATH REPORTon 09-16 SURGICAL PATH REPORT [facility] Department of Pathology [address] [place] [address] Name: CHULA CHAVEZ : 2000 [employer] [id number] Number: [facility] Ad[facility] 22 years Attending TERESITA HODGE Age: Provider: Ordering TERESITA HODGE Provider: [facility] Report ng: ACCESSION: COLLECTED DATE/TIME: RECEIVED DATE/TIME: PATHOLOGIST: [id number] 09/15/2022 12:34 EST 09/15/2022 12:34 EST LUIS MOREIRA MD Final Diagnosis Report for [facility] PRODUCTS OF CONCEPTION, DILATION AND CURETTAGE: - CHORIONIC VILLI ARE PRESENT; NO SIGNIFICANT ATYPIA IS OBSERVED. - BENIGN MATERIAL DECIDUA PRESENT. - NO PARTS ARE IDENTIFIED. LUIS MOREIRA PATHOLOGIST (Electronic Signature) Date Verified 09/16/2022 LN Clinical Data PRE-OP DIAGNOSIS: Not specified POST-OP DIAGNOSIS: Missed PROCEDURES: D and C with suction SPECIMEN: Products of conception / senior care manager Gross Description Labeled products of conception. Received in formalin in a suction sock are multiple irregular segments of medrano pink to red black soft tissue. The individual segments have a variable granular to partially smooth glistening membranous character. The specimen in total aggregate measures 12.5 x 7.5 x 4.0 cm. There are no grossly identifiable parts. Health Care Analyst sections are submitted in three cassettes. MP/ald 09/15/2022 ____ ____ Print 09/16/2022 14:53 EST Number: Date/Time: [facility] Department of Pathology [address] [place] [phone] Name: CHULA CHAVEZ : 2000 [facility] [id number] Number: [facility] : n: Admit 22 years Attending TERESITA HODGE Age: Provider: Ordering TERESITA HODGE Provider: [facility] Report ng: ACCESSION: COLLECTED DATE/TIME: RECEIVED DATE/TIME: PATHOLOGIST: [id number] 09/15/2022 12:34 EST 09/15/2022 12:34 EST LILLIE KHAN, LUIS ERAZO Gross Description Tissue pathology report for: [facility], [address] [place] [address]; PATHOLOGY SERVICES PROVIDED BY [employer] , [facility] (CLIA #[id number]) in cooperation with [facility] at [address] [place] [address] ( CLIA #[id number]) Codes CPT CODE: 81015 ____ ____ Print 09/16/2022 14:53 EST Number: Date/Time: Normal [facility] Comment on above: Performed By: #### 9 [id number] #### [facility] Laboratory Services [address] [place] [address] Quantitative Analyst Marketing: Tom Aguero MD CBC AUTO DIFFon 09-15-2022 BASO # 0.0 103/ul Normal 0.0-0.1 [facility] Comment on above: Performed By: #### C BC #### [facility] [address] [place] [address] Dr. Aleah Peres Basophils/100 WBC (Bld) 0.4 % Normal 0.2-2.0 [facility] Comment on above: Performed By: #### C BC #### [facility] [address] [place] [address] Dr. Aleah Peres EO # 0.1 103/ul Normal 0.0-0.7 [facility] Comment on above: Performed By: #### C BC #### [facility] [address] [place] [address] Dr. Aleah Peres Eosinophils/100 WBC (Bld) 1.3 % Normal 0.9-7.0 [facility] Comment on above: Performed By: #### C BC #### [facility] [address] [place] [address] Dr. Aleah Peres Erythrocyte distribution width (RBC) [Ratio] 13.8 % Normal 11.0-15.0 [facility] Comment on above: Performed By: #### C BC #### [facility] [address] [place] [address] Dr. Aleah Peres Hematocrit (Bld) [Volume fraction] 35.5 % Critically low 36.0-48.0 [facility] Comment on above: Performed By: #### C BC #### [facility] [address] [place] [address] Dr. Aleah Peres Hemoglobin (Bld) [Mass/Vol] 11.6 g/dL Critically low 12.0-16.0 [facility] Comment on above: Performed By: #### C BC #### [facility] [address] [place] [address] Dr. Aleah Peres IG # 0.03 10e3/ul Normal 0.00-0.03 [facility] Comment on above: Performed By: #### C BC #### [facility] [address] [place] [address] Dr. Aleah Peres IG % 0.4 % Normal 0.0-0.5 [facility] Comment on above: Performed By: #### C BC #### [facility] [address] [place] [address] Dr. Aleah Peres LYMPH # 2.8 103/ul Normal 1.2-3.8 [facility] Comment on above: Performed By: #### C BC #### [facility] [address] [place] [address] Dr. Aleah Peres Lymphocytes/100 WBC (Bld) 32.9 % Normal 20.5-60.0 [facility] Comment on above: Performed By: #### C BC #### [facility] [address] [place] [address] Dr. Aleah Peres MANUAL DIFF REQ NO Normal [facility] Comment on above: Performed By: #### C BC #### [facility] [address] [place] [address] Dr. Aleah Peres MCH (RBC) [Entitic mass] 26.9 pg Normal 26.7-34.0 [facility] Comment on above: Performed By: #### C BC #### [facility] [address] [place] [address] Dr. Aleah Peres MCHC (RBC) [Mass/Vol] 32.7 g/dL Normal 29.9-35.2 [facility] Comment on above: Performed By: #### C BC #### [facility] [address] [place] [address] Dr. Aleah Peres MCV (RBC) [Entitic vol] 82.4 fL Normal 81.0-99.0 [facility] Comment on above: Performed By: #### C BC #### [facility] [address] [place] [address] Dr. Aleah Peres MONO # 0.7 103/ul Normal 0.3-0.8 [facility] Comment on above: Performed By: #### C BC #### [facility] [address] [place] [address] Dr. Aleah Peres Monocytes/100 WBC (Bld) 8.6 % Normal 1.7-12.0 [facility] Comment on above: Performed By: #### C BC #### [facility] [address] [place] [address] Dr. Aleah Peres NEUT # 4.8 103/ul Normal 1.4-6.5 [facility] Comment on above: Performed By: #### C BC #### [facility] [address] [place] [address] Dr. Aleah Peres Neutrophils/100 WBC (Bld) 56.4 % Normal 43.0-75.0 [facility] Comment on above: Performed By: #### C BC #### [facility] [address] [place] [address] Dr. Aleah Peres Platelet mean volume (Bld) [Entitic vol] 9.9 fL Normal 9.5-13.5 [facility] Comment on above: Performed By: #### C BC #### [facility] [address] [address] [address] Aleah Peres PLT 316 103/ul Normal 150-450 [facility] Comment on above: Performed By: #### C BC #### [facility] [address] [address] [address] Aleah Peres RBC 4.31 106/ul Normal 4.20-5.40 [facility] Comment on above: Performed By: #### C BC #### [facility] [address] [address] [address] Aleah Peres WBC 8.4 103/ul Normal 4.0-11.0 [facility] Comment on above: Performed By: #### C BC #### [facility] [address] [place] [address] Dr. Aleah Peres PREG QUANT HCGon 09-15-2022 HCG QUANT 96896 mIU/mL Normal [facility] Comment on above: Performed By: #### P REGQNT #### [facility] [address] [place] [address] Dr. Aleah Peres HCG RANGE SEE BELOW Normal [facility] Comment on above: Result Comment: 5-50 0.2-1 WEEK 50-500 1-2 WEEKS 100-5,000 2-3 WEEKS 500-10,000 3-4 WEEKS 1,000-50,000 4-5 WEEKS 10,000-100,000 5-6 WEEKS 15,000-200,000 6-8 WEEKS 10,000-100,000 2-3 MONTHS Performed By: #### P REGQNT #### [facility] [address] [place] [address] Dr. Aleah Peres TYPE AND SCREENon 09-15-2022 TYPE AND SCREEN Negative Normal [facility] Comment on above: Performed By: #### P REGQNT #### [facility] [address] [place] [address] Dr. Aleah Peres US PELVISon 09-15-2022 US PELVIS EXAMINATION: US PELV IS HISTORY: Spontaneous COMPARISON: No relevant comparison available. TECHNIQUE: Transabdominal and transvaginal sonographic examination. FINDINGS: UTERUS: Small amount of fluid within endometrial cavity. No visible retained products of conception. IMPRESSION: 1. No appreciable retained products of conception within uterine cavity. Electronically authenticated by: ASHLEY NOEL Date: 2022-09-15 15:42 Normal [facility] US PREG TVon 09-13-2022 US PREG TV Begin Addendum # 1 This is a corrected report for the OB ultrasound performed on 09/13/2022. Within the impression 2 states: Estimated gestational age is 19 weeks 6 days. This should state: 2. Estimated gestational age is 19 weeks 6 days. Original Report EXAM: OB ultrasound HISTORY: . test positive . COMPARISON: None. TECHNIQUE: Transvaginal scanning was performed FINDINGS: Scanning of the pelvis demonstrates within the endometrial cavity of the fundus of uterus a well-formed gestational sac. There is a yolk sac and pole noted. No heart rate was noted. Estimated gestational age by today's ultrasound was 9 weeks 6 days. Cervix appears closed measuring 3.6 cm. Right ovary was not visualized. Left ovary measures 3.2 x 1.8 x 3 cm. No masses were noted. Follicles are noted. Color-flow is noted. No fluid is noted in the cul-de-sac. IMPRESSION: 1. Well-formed gestational sac within the endometrial cavity of the fundus of uterus. There was a yolk sac and pole noted. No definite heart activity was noted. 2. Estimated gestational age is 19 weeks 6 days. 3. Normal left ovary. 4. Right ovary was not identified. Normal [facility] CBC AUTO DIFFon 08-16-2022 BASO # 0.0 103/ul Normal 0.0-0.1 [facility] Comment on above: Performed By: #### C BC #### [facility] [address] [place], [place] [address] Dr. Aleah Peres Basophils/100 WBC (Bld) 0.4 % Normal 0.2-2.0 [facility] Comment on above: Performed By: #### C BC #### [facility] [address] [place], [place] [address] Dr. Aleah Peres EO # 0.1 103/ul Normal 0.0-0.7 [facility] Comment on above: Performed By: #### C BC #### [facility] [address] [place] [address] Dr. Aleah Peres Eosinophils/100 WBC (Bld) 1.4 % Normal 0.9-7.0 [facility] Comment on above: Performed By: #### C BC #### [facility] [address] [place] [address] Dr. Aleah Peres Erythrocyte distribution width (RBC) [Ratio] 13.6 % Normal 11.0-15.0 [facility] Comment on above: Performed By: #### C BC #### [facility] [address] [place] [address] Dr. Aleah Peres Hematocrit (Bld) [Volume fraction] 32.4 % Critically low 36.0-48.0 [facility] Comment on above: Performed By: #### C BC #### [facility] [address] [place] [address] Dr. Aleah Peres Hemoglobin (Bld) [Mass/Vol] 11.2 g/dL Critically low 12.0-16.0 [facility] Comment on above: Performed By: #### C BC #### [facility] [address] [place] [address] Dr. Aleah Peres IG # 0.02 10e3/ul Normal 0.00-0.03 [facility] Comment on above: Performed By: #### C BC #### [facility] [address] [place] [address] Dr. Aleah Peres IG % 0.3 % Normal 0.0-0.5 [facility] Comment on above: Performed By: #### C BC #### [facility] [address] [place] [address] Dr. Aleah Peres LYMPH # 2.4 103/ul Normal 1.2-3.8 [facility] Comment on above: Performed By: #### C BC #### [facility] [address] [place] [address] Dr. Aleah Peres Lymphocytes/100 WBC (Bld) 32.3 % Normal 20.5-60.0 [facility] Comment on above: Performed By: #### C BC #### [facility] [address] [place] [address] Dr. Aleah Peres MANUAL DIFF REQ NO Normal [facility] Comment on above: Performed By: #### C BC #### [facility] [address] [place] [address] Dr. Aleah Peres MCH (RBC) [Entitic mass] 26.9 pg Normal 26.7-34.0 [facility] Comment on above: Performed By: #### C BC #### [facility] [address] [place] [address] Dr. Aleah Peres MCHC (RBC) [Mass/Vol] 34.6 g/dL Normal 29.9-35.2 [facility] Comment on above: Performed By: #### C BC #### [facility] [address] [place] [address] Dr. Aleah Peres MCV (RBC) [Entitic vol] 77.9 fL Critically low 81.0-99.0 [facility] Comment on above: Performed By: #### C BC #### [facility] [address] [place] [address] Dr. Aleah Peres MONO # 0.7 103/ul Normal 0.3-0.8 [facility] Comment on above: Performed By: #### C BC #### [facility] [address] [place] [address] Dr. Aleah Peres Monocytes/100 WBC (Bld) 9.1 % Normal 1.7-12.0 [facility] Comment on above: Performed By: #### C BC #### [facility] [address] [place] [address] Dr. Aleah Peres NEUT # 4.1 103/ul Normal 1.4-6.5 [facility] Comment on above: Performed By: #### C BC #### [facility] [address] [place] [address] Dr. Aleah Peres Neutrophils/100 WBC (Bld) 56.5 % Normal 43.0-75.0 [facility] Comment on above: Performed By: #### C BC #### [facility] [address] [place] [address] Dr. Aleah Peres Platelet mean volume (Bld) [Entitic vol] 9.4 fL Critically low 9.5-13.5 [facility] Comment on above: Performed By: #### C BC #### [facility] [address] [place] [address] Dr. Aleah Peres PLT 303 103/ul Normal 150-450 [facility] Comment on above: Performed By: #### C BC #### [facility] [address] [place] [address] Dr. Aleah Peres RBC 4.16 106/ul Critically low 4.20-5.40 [facility] Comment on above: Performed By: #### C BC #### [facility] [address] [place] [address] Dr. Aleah Peres WBC 7.3 103/ul Normal 4.0-11.0 [facility] Comment on above: Performed By: #### C BC #### [facility] [address] [place] [address] Dr. Aleah Peres ER URINE PROFILEon 3 Bilirubin Ql (U) Negative Normal NEGATIVE [facility] Comment on above: Performed By: #### E RUR #### [facility] [address] [place] [address] Dr. Aleah Peres Clarity (U) CLEAR Normal CLEAR [facility] Comment on above: Performed By: #### E RUR #### [facility] [address] [place] [address] Dr. Aleah Peres Color (U) YELLOW Normal YELLOW [facility] Comment on above: Performed By: #### E RUR #### [facility] [address] [place] [address] Dr. Aleah OMALLEY A micrscopic examination will be performed if indicated. Normal [facility] Comment on above: Performed By: #### E RUR #### [facility] [address] [place], [place] [id number] Dr. Aleah Peres Glucose Ql (U) Negative Normal NEGATIVE [facility] Comment on above: Performed By: #### E RUR #### [facility] [address] [place] [address] Dr. Aleah Peres Hemoglobin Ql (U) Negative Normal NEGATIVE [facility] Comment on above: Performed By: #### E RUR #### [facility] [address] [place] [address] Dr. Aleah Peres Ketones Ql (U) Negative Normal NEGATIVE [facility] Comment on above: Performed By: #### E RUR #### [facility] [address] [place] [address] Dr. Aleah Peres LEUKOCYTES Negative Normal NEGATIVE [facility] Comment on above: Performed By: #### E RUR #### [facility] [address] [place] [address] Dr. Aleah Peres Nitrite Ql (U) Negative Normal NEGATIVE [facility] Comment on above: Performed By: #### E RUR #### [facility] [address] [place] [address] Dr. Aleah Peres pH (U) 6.0 [pH] Normal 5-9 [facility] Comment on above: Performed By: #### E RUR #### [facility] [address] [place] [address] Dr. Aleah Peres SPEC GRAVITY 1.020 Normal 1.005-<=1.025 [facility] Comment on above: Performed By: #### E RUR #### [facility] [address] [place] [address] Dr. Aleah Peres UA PROTEIN Negative Normal NEGATIVE/ TRACE [facility] Comment on above: Performed By: #### E RUR #### [facility] [address] [place] [address] Dr. Aleah Peres UR MICRO IND NOT INDICATED Normal [facility] Comment on above: Performed By: #### E RUR #### [facility] [address] [place] [address] Dr. Aleah Peres Urobilinogen Qn (U) 0.2 {Edmund'U}/dL Normal 0.2 - 1. 0 [facility] Comment on above: Performed By: #### E RUR #### [facility] [address] [place] [address] Dr. Aleah Peres PROF 14(COMP METB)on 023 Albumin [Mass/Vol] 3.0 g/dL Critically low 3.4-5.0 [facility] Comment on above: Performed By: #### C MP #### [facility] [address] [place] [address] Dr. Aleah Peres Albumin/Globulin [Mass ratio] 0.8 {ratio} Normal [facility] Comment on above: Performed By: #### C MP #### [facility] [address] [place] [address] Dr. Aleah Peres ALP [Catalytic activity/Vol] 52 U/L Normal 46-116 [facility] Comment on above: Performed By: #### C MP #### [facility] [address] [place] [address] Dr. Aleah Peres ALT [Catalytic activity/Vol] 15 U/L Normal 14-59 [facility] Comment on above: Performed By: #### C MP #### [facility] [address] [place] [address] Dr. Aleah Peres Anion gap [Moles/Vol] 10.2 mmol/L Normal [facility] Comment on above: Performed By: #### C MP #### [facility] [address] [place] [address] Dr. Aleah Peres AST [Catalytic activity/Vol] 13 U/L Critically low 15-37 [facility] Comment on above: Performed By: #### C MP #### [facility] [address] [place] [address] Dr. Aleah Peres Bilirubin [Mass/Vol] 0.2 mg/dL Normal 0.2-1.0 [facility] Comment on above: Performed By: #### C MP #### [facility] [address] [place] [address] Dr. Aleah Peres Calcium [Mass/Vol] 9.1 mg/dL Normal 8.5-10.1 [facility] Comment on above: Performed By: #### C MP #### [facility] [address] [place] [address] Dr. Aleah Peres Chloride [Moles/Vol] 100 mmol/L Normal 98-107 [facility] Comment on above: Performed By: #### C MP #### [facility] [address] [place] [address] Dr. Aleah Peres CO2 [Moles/Vol] 28.8 mmol/L Normal 21.0-32.0 [facility] Comment on above: Performed By: #### C MP #### [facility] [address] [place] [address] Dr. Aleah Peres Creatinine [Mass/Vol] 0.56 mg/dL Normal 0.55-1.02 [facility] Comment on above: Performed By: #### C MP #### [facility] [address] [place] [address] Dr. Aleah Peres EGFR-AF EGYPTIAN >60 Normal >=60 [facility] Comment on above: Performed By: #### C MP #### [facility] [address] [place] [address] Dr. Aleah Peres EGFR-NON AF EGYPTIAN >60 Normal >=60 [facility] Comment on above: Performed By: #### C MP #### [facility] [address] [place] [address] Dr. Aleah Peres Globulin (S) [Mass/Vol] 3.9 g/dL Normal [facility] Comment on above: Performed By: #### C MP #### [facility] [address] [place] [address] Dr. Aleah Peres Glucose [Mass/Vol] 90 mg/dL Normal 74-106 [facility] Comment on above: Performed By: #### C MP #### [facility] [address] [place] [address] Dr. Aleah Peres Potassium [Moles/Vol] 4.0 mmol/L Normal 3.5-5.1 [facility] Comment on above: Performed By: #### C MP #### [facility] [address] [address] [address] Aleah Peres Protein [Mass/Vol] 6.9 g/dL Normal 6.4-8.2 [facility] Comment on above: Performed By: #### C MP #### [facility] [address] [address] [address] Aleah Peres Sodium [Moles/Vol] 135 mmol/L Critically low 136-145 Th [facility] Comment on above: Performed By: #### C MP #### [facility] [address] [address] [address] Aleah Peres Urea nitrogen [Mass/Vol] 4.0 mg/dL Critically low 7.0-18.0 [facility] Comment on above: Performed By: #### C MP #### [facility] [address] [address] [address] Aleah Peres Urea nitrogen/Creatinine [Mass ratio] 7.1 mg/mg [facility] Comment on above: Performed By: #### C MP #### [facility] [address] [address] [address] Aleah Peres PAP ACOG PANEL 2: 20 to 28on 08-02-2022 . . Normal [facility] Comment on above: Result Comment: Perf ormed at: WB Performed By: #### [id number] #### [facility] [address] [address] [address] Aleah Peres Age Gdln ACOG Testing - Normal [facility] Comment on above: Performed By: #### [id number] #### [facility] [address] [address] [address] Aleah Peres DIAGNOSIS: Comment Abnormal [facility] Comment on above: Result Comment: EPIT HELIAL CELL ABNORMALITY. LOW GRADE SQUAMOUS INTRAEPITHELIAL LESION (LSIL). Performed at: WB Performed By: #### [id number] #### [facility] [address] [address] [address] Aleah Peres Electronically signed by: Comment Normal [facility] Comment on above: Result Comment: Amena Arciniega MD, Pathologist Performed at: WB Performed By: #### [id number] #### [facility] [address] [place] [address] Dr. Aleah Peres Methodology: Comment Normal [facility] Comment on above: Result Comment: This liquid based ThinPrep(R) pap test was screened with the use of an image guided system. Performed at: WB Performed By: #### [id number] #### [facility] [address] [place] [address] Dr. Aleah Peres Note: Comment Normal [facility] Comment on above: Result Comment: The Pap smear is a screening test designed to aid in the detection of premalignant and malignant conditions of the uterine cervix. It is not a diagnostic procedure and should not be used as the sole means of detecting cervical cancer. Both false-positive and false-negative reports do occur. . Performed at: WB Performed By: #### [id number] #### [facility] [address] [place] [address] Dr. Aleah Peres Pathologist Provided ICD10 Comment Normal [facility] Comment on above: Result Comment: [id number] Performed at: WB Performed By: #### [id number] #### [facility] [address] [place] [address] Dr. Aleah Peres Performed by: Comment Normal [place] Comment on above: Result Comment: Caitlyn Crenshaw, Corporate Events Director (ASCP) Performed at: BA Performed By: #### [id number] #### [facility] [address] [place] [address] Dr. Aleah Peres Recommendation: Comment Abnormal [facility] Comment on above: Result Comment: Sugg est follow up as clinically appropriate. Performed at: WB Performed By: #### [id number] #### [facility] [address] [place] [address] Dr. Aleah Peres Reflex Criteria: Comment Normal [facility] Comment on above: Result Comment: The HPV DNA reflex criteria were not met with this specimen result therefore, no HPV testing was performed. . Performed at: WB Performed By: #### [id number] #### [facility] [address] [address] [address] Aleah Peres Specimen adequacy: Comment Normal [facility] Comment on above: Result Comment: Sati sfactory for evaluation. Endocervical and/or squamous metaplastic cells (endocervical component) are present. Performed at: WB Performed By: #### [id number] #### [facility] [address] [address] [address] Aleah Peres Covid-19 PCR ([facility])on 05-25 SARS-CoV-2 (COVID-19) RNA MARY ELLEN+probe Ql (Unsp spec) Not detected Normal NOT DETECTED [facility] Comment on above: Result Comment: When diagnostic testing is negative, the possibility of a false negative should be considered in the context of a patient's recent exposures and the presence of clinical signs and symptoms consistent with SARS-CoV-2. This test is not yet approved or cleared by the [place] FDA. When there are no FDA-approved or cleared tests available, and other criteria are met, FDA can make tests available under an emergency access mechanism called an Emergency Use Authorization (EUA). The EUA for this test is supported by the [place] of Health and Human Service's declaration that circumstances exist to justify the emergency use of in vitro diagnostics for the detection and/or diagnosis of the virus that causes COVID-19. This EUA will remain in effect for the duration of the COVID-19 declaration justifying emergency of IVDs, unless it is terminated or revoked by the FDA (after which the test may no longer be used). Performed By: #### P REGQNT #### [facility] [address] [address] [address] Aleah Peres Encounters Encounter Date Encounter Type Care Provider Facility Start: 07-13-2023 End: 07-13-2023 ambulatory TERESITA HODGE Not Available Start: 06-13-2023 End: 06-13-2023 ambulatory MONICA DOBBINS Not Available Start: 11-10-2022 End: 11-10-[address] ALEXIA BARRETT . Facility:[facility] Start: 10-22-2022 End: 10-23-2022 ambulatory NATASHA CAMARA . Facility:[facility] Start: 10-08-2022 End: 10-09-2022 ambulatory ALEXIA ABRRETT Facility:[facility] Start: 10-08-2022 End: 10-08-[address] ALEXIA BARRETT . Facility:[facility] Start: 10-06-2022 End: 10-07-[address] ALEXIA BARRETT . Facility:[facility] Start: 09-17-2022 Encounter for other preprocedural examination DR TERESITA HODGE . [facility] Start: 09-15-2022 End: 09-16-2022 ambulatory TERESITA HODGE Facility:[facility] Start: 09-15-2022 End: 09-15-[address] TERESITA HODGE . Facility:[facility] Start: 09-14-2022 End: 09-15-[address] TERESITA HODGE . Facility:[facility] Start: 09-14-2022 End: 09-15-2022 Encounter for other preprocedural examination DR TERESITA HODGE . Facility:[facility] Start: 09-13-2022 End: 09-14-[address] ALEXIA BARRETT . Facility:[facility] Start: 08-16-2022 End: 08-16-2022 ambulatory STEVEN ARELLANO Facility:[facility] Start: 07-21-2022 End: 07-21-[address] ALEXIA BARRETT . Facility:[facility] Start: 06-07-2022 End: 06-08-[address] MAGDA MARTINEZ Facility: Payers Date Payer Category Payer Medicaid [id number] 1999 Unknown [id number] 2.16.84 [id number] 1999 Unknown [id number] 2.16.84 [id number] 1999 Unknown [id number] 2.16.84 [id number] 1999 Unknown [id number] 2.16.84 [id number] 1999 Unknown [id number] 2.16.84 [id number] 1999 Unknown [id number] 2.16.84 [id number] 1999 Unknown [id number] 2.16.84 [id number] 1999 Unknown [id number] 2.16.84 [id number] 1999 Unknown [id number] 2.16.84 [id number] 1999 Unknown [id number] 2.16.84 [id number] 1999 Unknown [id number] 2.16.840 .[id number] 1999 Unknown [id number] 2.16.840 .[id number] 1959 Unknown [id number] 1959 Unknown [id number] Clinical Note 09-15-2022 Note Date & Type Note Facility 09-15-2022 Note EXAMINATION: US PREG TV HISTORY: Spontaneous ; pre-DANDC evaluation COMPARISON: Ultrasound transvaginal 09/13/2022 FINDINGS: GESTATIONAL SAC: Present YOLK SAC: Absent POLE: Present CARDIAC: Absent UTERUS: Normal size and appearance. OVARIES: Right: Not evaluated. Left: Not evaluated. CUL-DE-SAC: Normal. OTHER: None. AGE BY LMP: 10 weeks 4 days FERN BY LMP: 04/09/2023 AGE BY US CRL: 9 weeks 4 days FERN BY US CRL: 04/16/2023 IMPRESSION: 1. Intrauterine with no detectable heartbeat. Electronically authenticated by: ASHLEY NOEL Date: 2022-09-15 07:41 [facility] Clinical Note 09-15-2022 Note Date & Type Note Facility 09-15-2022 Note OPERATIVE NOTE OPERATION DATE: 09/15/2022 PROCEDURE: Suction D AND C. PREOPERATIVE DIAGNOSIS: First trimester missed at 10 weeks. POSTOPERATIVE DIAGNOSIS: First trimester missed at 10 weeks. ANESTHESIA: General. SURGEON: Teresita Hodge D.O. FEDERAL JUDICIAL LAW CLERK: None. FINDINGS: Products of conception. SPECIMEN: Products of conception. BLOOD LOSS: 100 mL. URINE OUTPUT: Yellow and clear. PROCEDURE: The patient was taken back to the OR where she was given general anesthesia without difficulty. She was then placed in dorsal lithotomy position, prepped and draped in the normal sterile fashion. A weighted speculum was placed in the patient's vagina and the anterior lip of the cervix was identified and grasped with a single-tooth tenaculum. The patient was then gently dilated using Hegar dilators after we had sounded roughly to 10 cm. The suction curette was then tested. The suction curette was then placed in the patient's uterus and products of conception were removed using an 9-Chinese suction curette. Excellent hemostasis was noted. The patient tolerated the procedure well. Sponge, lap, and needle counts were correct x 2. All instruments were then removed from the patient's vagina. The patient was taken to the Recovery Room in stable condition. ?? [facility] Summary Purpose Family History No Family History Records FoundNo Family History Records FoundNo Family History Records Found Advance Directives No Advanced Directives Records FoundNo Advanced Directives Records FoundNo Advanced Directives Records Found Additional Source Comments INFORMATION SOURCE (unrecogn ized section and content) DATE CREATED AUTHOR 10/12/2022 [facility] DATE CREATED AUTHOR AUTHOR'S ORGANIZ ATION 12/08/2022 [facility] DATE CREATED AUTHOR AUTHOR'S ORGANIZ ATION 07/15/2023 [facility] FOR RECORDS PERTAINING TO PATIENTS WHO ARE OR HAVE BEEN ENROLLED IN A CHEMICAL DEPENDENCY/SUBSTANCEABUSE PROGRAM, SOME INFORMATION MAY BE OMITTED. This clinical summary was aggregated from multiple sources. Caution should be exercised in using it in the provision of clinical care. This summary normalizes information from multiple sources, and as a consequence, information in this document may materially change the coding, format and clinical context of patient data. In addition, data may be omitted in some cases. CLINICAL DECISIONS SHOULD BE BASED ON THE PRIMARY CLINICAL RECORDS. [facility] [employer] [facility]. provides no warranty or guarantee of the accuracy or completeness of information in this document.
[2023-07-21 11:48] VITALS: O2SAT 90
[2023-07-21 11:53] VITALS: O2SAT 92
[2023-07-21 11:56] VITALS: BP 105/68; PULSE 91; RESP 18; O2SAT 96
--- NOTE | 2023-07-21 12:21 | ED.URI1 ---
HPI - URI/Sore Throat General Chief Complaint: Upper Respiratory Infection Stated Complaint: SHORTNESS OF BREATH Time Seen by Provider: 07/21/23 12:14 Source: patient History of Present Illness HPI Narrative: patient's here with onset of upper respiratory type symptoms last . She did test for Covid at home and is negative. She is twenty[age]four weeks and she's not had any complications with this . She has no bleeding spotting or abdominal discomfort. She has no urinary symptomatology. She does not smoke cigarettes at this time she quit when she was . She does have a history of some childhood asthma but does not use inhalers on a regular basis. She is using her mother's inhaler which turns out his Symbicort. She's not been using any rescue inhalers. She's not had fever or rigors. She's not had copious diarrhea or any vomiting. She did have aches and pains all consistent with a viral syndrome. Related Data Home Medications Medication Instructions Recorded Confirmed DAILY 04/08/23 Allergies Allergy/AdvReac Type Severity Reaction Status Date / Time No Known Drug Allergies Allergy Verified 06/29/23 00:23 [facility] Social History Smoking status: Current every day smoker Exam Narrative Exam Narrative: very pleasant awake alert oriented ?3 no respiratory distress pulse oximetry ninety-six percent on room air and a respiratory rate of eighteen. Skin is warm and dry good tissue perfusion no evidence of pallor or anemia. Examination of her chest shows no retractions with normal ventilatory effort she has no wheezing but with coughing maneuvers she does have bronchospasm. HEENT shows no focus of infection she has no earache or sore throat at this time. Legs do not have any peripheral edema or deep vein thrombosis. Constitutional Vital Signs, click to edit/add: Last Vital Signs Temp 97.9 F 07/21/23 10:56 Pulse 91 H 07/21/23 11:56 Resp 18 07/21/23 11:56 BP 105/68 07/21/23 11:56 Pulse Ox 96 07/21/23 11:56 O2 Del Method Room Air 07/21/23 11:04 Course Vital Signs Vital signs: Vital Signs Temperature 97.9 F 07/21/23 10:56 Pulse Rate 102 H 07/21/23 10:56 Respiratory Rate 16 07/21/23 10:56 Blood Pressure 114/75 07/21/23 10:56 Temperature 97.9 F 07/21/23 10:56 Pulse Rate 91 H 07/21/23 11:56 Respiratory Rate 18 07/21/23 11:56 Blood Pressure 105/68 07/21/23 11:56 Pulse Oximetry 96 07/21/23 11:56 Oxygen Delivery Method Room Air 07/21/23 11:04 MDM - URI/Sore Throat MDM Narrative Medical decision making narrative: patient's chest x-ray shows bibasilar early infiltrate/atelectasis. Three infectious type symptoms after a viral syndrome I will initiate antibiotic therapy with her. She is encouraged to follow up with her [employer] early next week. She will also be given an albuterol inhaler to be used on an as-needed basis for bronchospastic events as she is well informed on that. Discharge Plan Discharge Chief Complaint: Upper Respiratory Infection Clinical Impression: Pneumonia affecting in second trimester Patient Disposition: Home, Self-Care Time of Disposition Decision: 13:47 Prescriptions / Home Meds: No Action DAILY Additional Instructions: Z-Pedro/albuterol inhaler/plenty of rest. Follow-up with primary care doctor one week or return if worse Stand Alone Forms: Portal Instructions Referrals: Physician,Non-Staff, MD [Primary Care Provider] - 1 week
--- NOTE | 2023-07-21 12:24 | XR_ITS ---
The [address] [address] Patient Name: CHULA CHAVEZ MRN: [id number] date: 2000 Sex: F Assigned Patient Location: ER Current Patient Location: ER Accession/Order Number: [id number] Exam Date: 07/21/2023 12:40 Report Date: 07/21/2023 13:17 At the request of: BEN SHER Procedure: XR chest 1V EXAMINATION: XR chest 1V HISTORY: cough/fever COMPARISON: XR chest 04/09/2019 FINDINGS: LUNGS: Mild haziness within lung bases, right greater than left. VASCULATURE: No increased pulmonary vasculature. PLEURA: No pneumothorax, effusion, or pleural thickening. CARDIAC: No cardiomegaly or cardiac silhouette abnormality. MEDIASTINUM: No visible mass or adenopathy. BONES: No fracture or visible bone lesion. OTHER: Negative. XR/XR chest 1V IMPRESSION: 1. Mild bibasilar infiltrates suggestive of pneumonia; right greater than left. Electronically authenticated by: ASHLEY NOEL Date: 07/21/2023 13:17
[2023-07-21] MEDS: IPRATROPIUM/ALBUTEROL SULFATE 3 ML AMPUL.NEB IH (12:42)
== END 2023-07-21 14:09 | disposition home or self-care (01) ==
PROVIDERS: Emergency Provider Emergency Medicine Emergency Medical Services
DX: O99.512 Diseases of the respiratory system complicating pregnancy, second trimester (principal); J18.9 Pneumonia, unspecified organism; Z87.891 Personal history of nicotine dependence; Z3A.24 24 weeks gestation of pregnancy
CPT/HCPCS: 71045; 94640; 99283

== ENCOUNTER 2023-07-26 12:52 | Outpatient (OUT) | payer MEDICAID, SELFPAY ==
--- NOTE | 2023-07-26 12:55 | US_ITS ---
[address] [address] Patient Name: CHULA CHAVEZ MRN: [id number] date: 2000 Sex: F Assigned Patient Location: US Current Patient Location: Accession/Order Number: [id number] Exam Date: 07/26/2023 12:55 Report Date: 07/26/2023 14:44 At the request of: TERESITA ARTHUR Procedure: US OB follow up EXAMINATION: US OB follow up HISTORY: SV CARDIAC OUTFLOW TRACTS COMPARISON: 06/27/2023 FINDINGS: position: Breech presentation, longitudinal lie Heart rate: 157 bpm Normal anatomy: RVOT, LVOT US/US OB follow up IMPRESSION: Normal ventricular outflow tracts Electronically authenticated by: PIPPA ORTEGA Date: 07/26/2023 14:44
--- OUTSIDE RECORDS SUMMARY | 2023-07-26 12:56 | XMS_ITS | CCD ---
Author Name Unknown Address [address] [place] [address] Organization [facility] Care Team Providers Care Block Setter Gypsum Name Role Phone ALEXIA BARRETT Attending Unavailable [...] 2: 20 to 28on 11-17-[address] [facility] Comment on above: Performed By: #### [id number] #### [facility] [address] [place] [address] Dr. Aleah Peres Age Gdln ACOG Testing [facility] Comment on above: Performed By: #### 4 [id number] #### [facility] [address] [place] [address] Dr. Aleah Peres DIAGNOSIS: Comment [facility] Comment on above: Result Comment: NEGA TIVE FOR INTRAEPITHELIAL LESION OR MALIGNANCY. Performed By: #### 4 [id number] #### [facility] [address] [place] [address] Dr. Aleah Peres Methodology: Comment [facility] Comment on above: Result Comment: This liquid based ThinPrep(R) pap test was screened with the use of an image guided system. Performed By: #### 4 [id number] #### [facility] [address] [place] [address] Dr. Aleah Peres Note: Comment [facility] Comment on above: Result Comment: The Pap smear is a screening test designed to aid in the detection of premalignant and malignant conditions of the uterine cervix. It is not a diagnostic procedure and should not be used as the sole means of detecting cervical cancer. Both false-positive and false-negative reports do occur. . Performed By: #### 4 [id number] #### [facility] [address] [place] [address] Dr. Aleah Peres Performed by: Comment [facility] Comment on above: Result Comment: Annelise Martinez Plywood Stock Grader Performed By: #### 4 [id number] #### [facility] [address] [address] [address] Aleah Peres Reflex Criteria: Comment Normal [facility] Comment on above: Result Comment: The HPV DNA reflex criteria were not met with this specimen result therefore, no HPV testing was performed. . Performed By: #### 4 [id number] #### [facility] [address] [address] [address] Aleah Peres Specimen adequacy: Comment Normal [facility] Comment on above: Result Comment: Sati sfactory for evaluation. Endocervical and/or squamous metaplastic cells (endocervical component) are present. Performed By: #### 4 [id number] #### [facility] [address] [place] [address] Dr. Aleah Peres OCC BLD IMMUNO SCREENon 04-0 OCCULT BLOOD Negative Normal NEGATIVE [facility] Comment on above: Performed By: #### O BSCRN #### [facility] [address] [place] [address] Dr. Aleah Peres SURGICAL PATH REPORTon 10-11 SURGICAL PATH REPORT [facility] Department of Pathology [address] [place] [id number] Name: CAMERON CHAVEZ : 2000 [facility] [id number] Number: Gender [facility] : n: Admit 22 years Attending ALEXIA BARRETT Age: Provider: ALEXIA Yuan Provider: [facility] Report ng: ACCESSION: COLLECTED DATE/TIME: RECEIVED DATE/TIME: PATHOLOGIST: [id number] 10/08/2022 12:03 EDT 10/08/2022 12:03 EDT TOM AGUERO MD Final Diagnosis Report for [facility] [place], [place] RETAINED PRODUCTS OF CONCEPTION: - CHORIONIC [...] ald 10/08/2022 Tissue pathology report for: [facility], [address] [place] [address]; ____ ____ Print 10/11/2022 15:01 EDT Number: Date/Time: [facility] Department of Pathology [address] [place] [phone] Name: CAMERON CHAVEZ : 2000 [facility] [id number] Number: Gender Female [facility] : n: Admit 22 years Attending ALEXIA BARRETT Age: Provider: Ordering ALEXIA BARRETT Provider: [facility] Report ng: ACCESSION: COLLECTED DATE/TIME: RECEIVED DATE/TIME: PATHOLOGIST: [id number] 10/08/2022 12:03 EDT 10/08/2022 12:03 EDT LACI KHAN, TOM Gross Description PATHOLOGY SERVICES PROVIDED BY [facility] [employer] (CLIA #[id number]) in cooperation with [facility] at [address] [place] [address] ( CLIA #[id number]) Codes CPT CODE: 66948 ____ ____ Print 10/11/2022 15:01 EDT Number: Date/Time: Normal [facility] Comment on above: Performed By: #### 9 [id number] #### [facility] [address] [place] [address] Eating Disorder Psychologist: Tom Aguero MD URon 10-08-2022 , QUAL Negative Normal NEGATIVE [facility] Comment on above: Performed By: #### P REGU #### [facility] [address] [place], [place] [id number] Dr. Aleah Perse US PELVIS AND TRANSVAGon US PELVIS AND [...] by: PIPPA ORTEGA Date: 2022-10-06 14:55 Normal [facility] SURGICAL PATH REPORTon 09-16 SURGICAL PATH REPORT [facility] Department of Pathology [address] [place] [address] Name: CHULA CHAVEZ : 2000 [employer] [id number] Number: [facility] n: Ad[facility] 22 years Attending TERESITA HODGE Age: Provider: Ordering TERESITA HODGE Provider: [facility] Report ng: ACCESSION: COLLECTED DATE/TIME: RECEIVED DATE/TIME: PATHOLOGIST: [id number] 09/15/2022 12:34 EST 09/15/2022 12:34 EST LUIS MOREIRA MD Final Diagnosis Report for [facility] [place], [place] PRODUCTS OF CONCEPTION, DILATION AND CURETTAGE: - CHORIONIC VILLI ARE PRESENT; NO SIGNIFICANT ATYPIA IS OBSERVED. - BENIGN MATERIAL DECIDUA PRESENT. - NO PARTS ARE IDENTIFIED. LUIS MOREIRA PATHOLOGIST (Electronic Signature) Date Verified 09/16/2022 LN Clinical Data PRE-OP DIAGNOSIS: Not specified POST-OP DIAGNOSIS: Missed PROCEDURES: D and C with suction SPECIMEN: Products of conception / nurse healthcare manager Gross Description Labeled products of conception. Received in formalin in a suction sock are multiple irregular segments of medrano pink to red black soft tissue. The individual segments have a variable granular to partially smooth glistening membranous character. The specimen in total aggregate measures 12.5 x 7.5 x 4.0 cm. There are no grossly identifiable parts. Database Coordinator sections are submitted in three cassettes. MP/ald 09/15/2022 ____ ____ Print 09/16/2022 14:53 EST Number: Date/Time: [facility] Department of Pathology [address] [place] [phone] Name: CHULA CHAVEZ : 2000 [facility] [id number] Number: [facility] : n: Admit 22 years Attending TERESITA HODGE Age: Provider: Ordering TERESITA HODGE Provider: [facility] Report ng: ACCESSION: COLLECTED DATE/TIME: RECEIVED DATE/TIME: PATHOLOGIST: [id number] 09/15/2022 12:34 EST 09/15/2022 12:34 EST LILLIE KHAN, LUIS ERAZO Gross Description Tissue pathology report for: [facility], [address] [place] [address]; PATHOLOGY SERVICES PROVIDED BY [facility] [employer] (CLIA #[id number]) in cooperation with [facility] at [address] [place] [address] ( CLIA #[id number]) Codes CPT CODE: 52563 ____ ____ Print 09/16/2022 14:53 EST Number: Date/Time: Normal [facility] Comment on above: Performed By: #### 9 [id number] #### [facility] [address] [place] [address] Eating Disorder Psychologist: Tom Aguero MD CBC AUTO DIFFon 09-15-2022 BASO # 0.0 103/ul Normal 0.0-0.1 [facility] Comment on above: Performed By: #### C BC #### [facility] [address] [place] [address] Dr. Aleah Peres Basophils/100 WBC (Bld) 0.4 % Normal 0.2-2.0 [facility] Comment on above: Performed By: #### C BC #### [facility] [address] [place] [address] Dr. Aleah Peres EO # 0.1 103/ul Normal 0.0-0.7 [facility] Comment on above: Performed By: #### C BC #### [facility] [address] [place] [address] Dr. Aleah Peres Eosinophils/100 WBC (Bld) 1.3 % Normal 0.9-7.0 [facility] Comment on above: Performed By: #### C BC #### [facility] [address] [place] [address] Dr. Aleah Peres Erythrocyte distribution width (RBC) [Ratio] 13.8 % Normal 11.0-15.0 [facility] Comment on above: Performed By: #### C BC #### [facility] [address] [place] [address] Dr. Aleah Peres Hematocrit (Bld) [Volume fraction] 35.5 % Critically low 36.0-48.0 [facility] Comment on above: Performed By: #### C BC #### [facility] [address] [place] [address] Dr. Aleah Peres Hemoglobin (Bld) [Mass/Vol] 11.6 g/dL Critically low 12.0-16.0 [facility] Comment on above: Performed By: #### C BC #### [facility] [address] [place] [address] Dr. Aleah Peres IG # 0.03 10e3/ul Normal 0.00-0.03 [facility] Comment on above: Performed By: #### C BC #### [facility] [address] [place] [address] Dr. Aleah Peres IG % 0.4 % Normal 0.0-0.5 [facility] Comment on above: Performed By: #### C BC #### [facility] [address] [place] [address] Dr. Aleah Peres LYMPH # 2.8 103/ul Normal 1.2-3.8 [facility] Comment on above: Performed By: #### C BC #### [facility] [address] [place] [address] Dr. Aleah Peres Lymphocytes/100 WBC (Bld) 32.9 % Normal 20.5-60.0 [facility] Comment on above: Performed By: #### C BC #### [facility] [address] [place] [address] Dr. Aleah Peres MANUAL DIFF REQ NO Normal [facility] Comment on above: Performed By: #### C BC #### [facility] [address] [place] [address] Dr. Aleah Peres MCH (RBC) [Entitic mass] 26.9 pg Normal 26.7-34.0 [facility] Comment on above: Performed By: #### C BC #### [facility] [address] [place] [address] Dr. Aleah Peres MCHC (RBC) [Mass/Vol] 32.7 g/dL Normal 29.9-35.2 [facility] Comment on above: Performed By: #### C BC #### [facility] [address] [place] [address] Dr. Aleah Peres MCV (RBC) [Entitic vol] 82.4 fL Normal 81.0-99.0 [facility] Comment on above: Performed By: #### C BC #### [facility] [address] [place] [address] Dr. Aleah Peres MONO # 0.7 103/ul Normal 0.3-0.8 [facility] Comment on above: Performed By: #### C BC #### [facility] [address] [place] [address] Dr. Aleah Peres Monocytes/100 WBC (Bld) 8.6 % Normal 1.7-12.0 [facility] Comment on above: Performed By: #### C BC #### [facility] [address] [place] [address] Dr. Aleah Peres NEUT # 4.8 103/ul Normal 1.4-6.5 [facility] Comment on above: Performed By: #### C BC #### [facility] [address] [place] [address] Dr. Aleah Peres Neutrophils/100 WBC (Bld) 56.4 % Normal 43.0-75.0 [facility] Comment on above: Performed By: #### C BC #### [facility] [address] [place] [address] Dr. Aleah Peres Platelet mean volume (Bld) [Entitic vol] 9.9 fL Normal 9.5-13.5 [facility] Comment on above: Performed By: #### C BC #### [facility] [address] [address] [address] Aleah Peres PLT 316 103/ul Normal 150-450 [facility] Comment on above: Performed By: #### C BC #### [facility] [address] [address] [address] Aleah Peres RBC 4.31 106/ul Normal 4.20-5.40 [facility] Comment on above: Performed By: #### C BC #### [facility] [address] [address] [address] Aleah Peres WBC 8.4 103/ul Normal 4.0-11.0 [facility] Comment on above: Performed By: #### C BC #### [facility] [address] [place] [address] Dr. Aleah Peres PREG QUANT HCGon 09-15-2022 HCG QUANT 03651 mIU/mL Normal [facility] Comment on above: Performed By: #### P REGQNT #### [facility] [address] [place] [address] Dr. Aleah Peres HCG RANGE SEE BELOW Normal [facility] Comment on above: Result Comment: 5-50 0.2-1 WEEK 50-500 1-2 WEEKS 100-5,000 2-3 WEEKS 500-10,000 3-4 WEEKS 1,000-50,000 4-5 WEEKS 10,000-100,000 5-6 WEEKS 15,000-200,000 6-8 WEEKS 10,000-100,000 2-3 MONTHS Performed By: #### P REGQNT #### [facility] [address] [place] [address] Dr. Aleah Peres TYPE AND SCREENon 09-15-2022 TYPE AND SCREEN Negative Normal [facility] Comment on above: Performed By: #### P REGQNT #### [facility] [address] [place] [address] Dr. Aleah Peres US PELVISon 09-15-2022 US PELVIS EXAMINATION: US PELV IS HISTORY: Spontaneous COMPARISON: No relevant comparison available. TECHNIQUE: Transabdominal and transvaginal sonographic examination. FINDINGS: UTERUS: Small amount of fluid within endometrial cavity. No visible retained products of conception. IMPRESSION: 1. No appreciable retained products of conception within uterine cavity. Electronically authenticated by: ASHLEY NOEL Date: 2022-09-15 15:42 Normal [facility] US PREG TVon 09-13-2022 US PREG TV [...] Right ovary was not identified. Normal [facility] CBC AUTO DIFFon 08-16-2022 BASO # 0.0 103/ul Normal 0.0-0.1 [facility] Comment on above: Performed By: #### C BC #### [facility] [address] [place], [place] [address] Dr. Aleah Peres Basophils/100 WBC (Bld) 0.4 % Normal 0.2-2.0 [facility] Comment on above: Performed By: #### C BC #### [facility] [address] [place], [place] [address] Dr. Aleah Peres EO # 0.1 103/ul Normal 0.0-0.7 [facility] Comment on above: Performed By: #### C BC #### [facility] [address] [place] [address] Dr. Aleah Peres Eosinophils/100 WBC (Bld) 1.4 % Normal 0.9-7.0 [facility] Comment on above: Performed By: #### C BC #### [facility] [address] [place] [address] Dr. Aleah Peres Erythrocyte distribution width (RBC) [Ratio] 13.6 % Normal 11.0-15.0 [facility] Comment on above: Performed By: #### C BC #### [facility] [address] [place] [address] Dr. Aleah Peres Hematocrit (Bld) [Volume fraction] 32.4 % Critically low 36.0-48.0 [facility] Comment on above: Performed By: #### C BC #### [facility] [address] [place] [address] Dr. Aleah Peres Hemoglobin (Bld) [Mass/Vol] 11.2 g/dL Critically low 12.0-16.0 [facility] Comment on above: Performed By: #### C BC #### [facility] [address] [place] [address] Dr. Aleah Peres IG # 0.02 10e3/ul Normal 0.00-0.03 [facility] Comment on above: Performed By: #### C BC #### [facility] [address] [place] [address] Dr. Aleah Peres IG % 0.3 % Normal 0.0-0.5 [facility] Comment on above: Performed By: #### C BC #### [facility] [address] [place] [address] Dr. Aleah Peres LYMPH # 2.4 103/ul Normal 1.2-3.8 [facility] Comment on above: Performed By: #### C BC #### [facility] [address] [place] [address] Dr. Aleah Peres Lymphocytes/100 WBC (Bld) 32.3 % Normal 20.5-60.0 [facility] Comment on above: Performed By: #### C BC #### [facility] [address] [place] [address] Dr. Aleah Peres MANUAL DIFF REQ NO Normal [facility] Comment on above: Performed By: #### C BC #### [facility] [address] [place] [address] Dr. Aleah Peres MCH (RBC) [Entitic mass] 26.9 pg Normal 26.7-34.0 [facility] Comment on above: Performed By: #### C BC #### [facility] [address] [place] [address] Dr. Aleah Peres MCHC (RBC) [Mass/Vol] 34.6 g/dL Normal 29.9-35.2 [facility] Comment on above: Performed By: #### C BC #### [facility] [address] [place] [address] Dr. Aleah Peres MCV (RBC) [Entitic vol] 77.9 fL Critically low 81.0-99.0 [facility] Comment on above: Performed By: #### C BC #### [facility] [address] [place] [address] Dr. Aleah Peres MONO # 0.7 103/ul Normal 0.3-0.8 [facility] Comment on above: Performed By: #### C BC #### [facility] [address] [place] [address] Dr. Aleah Peres Monocytes/100 WBC (Bld) 9.1 % Normal 1.7-12.0 [facility] Comment on above: Performed By: #### C BC #### [facility] [address] [place] [address] Dr. Aleah Peres NEUT # 4.1 103/ul Normal 1.4-6.5 [facility] Comment on above: Performed By: #### C BC #### [facility] [address] [place] [address] Dr. Aleah Peres Neutrophils/100 WBC (Bld) 56.5 % Normal 43.0-75.0 [facility] Comment on above: Performed By: #### C BC #### [facility] [address] [place] [address] Dr. Aleah Peres Platelet mean volume (Bld) [Entitic vol] 9.4 fL Critically low 9.5-13.5 [facility] Comment on above: Performed By: #### C BC #### [facility] [address] [place] [address] Dr. Aleah Peres PLT 303 103/ul Normal 150-450 [facility] Comment on above: Performed By: #### C BC #### [facility] [address] [place] [address] Dr. Aleah Peres RBC 4.16 106/ul Critically low 4.20-5.40 [facility] Comment on above: Performed By: #### C BC #### [facility] [address] [place] [address] Dr. Aleah Peres WBC 7.3 103/ul Normal 4.0-11.0 [facility] Comment on above: Performed By: #### C BC #### [facility] [address] [place] [address] Dr. Aleah Peres ER URINE PROFILEon 3 Bilirubin Ql (U) Negative Normal NEGATIVE [facility] Comment on above: Performed By: #### E RUR #### [facility] [address] [place] [address] Dr. Aleah Peres Clarity (U) CLEAR Normal CLEAR [facility] Comment on above: Performed By: #### E RUR #### [facility] [address] [place] [address] Dr. Aleah Peres Color (U) YELLOW Normal YELLOW [facility] Comment on above: Performed By: #### E RUR #### [facility] [address] [place] [address] Dr. Aleah OMALLEY A micrscopic examination will be performed if indicated. Normal [facility] Comment on above: Performed By: #### E RUR #### [facility] [address] [place], [place] [address] Dr. Aleah Peres Glucose Ql (U) Negative Normal NEGATIVE [facility] Comment on above: Performed By: #### E RUR #### [facility] [address] [place] [address] Dr. Aleah Peres Hemoglobin Ql (U) Negative Normal NEGATIVE [facility] Comment on above: Performed By: #### E RUR #### [facility] [address] [place] [address] Dr. Aleah Peres Ketones Ql (U) Negative Normal NEGATIVE [facility] Comment on above: Performed By: #### E RUR #### [facility] [address] [place] [address] Dr. Aleah Peres LEUKOCYTES Negative Normal NEGATIVE [facility] Comment on above: Performed By: #### E RUR #### [facility] [address] [place] [address] Dr. Aleah Peres Nitrite Ql (U) Negative Normal NEGATIVE [facility] Comment on above: Performed By: #### E RUR #### [facility] [address] [place] [address] Dr. Aleah Peres pH (U) 6.0 [pH] Normal 5-9 [facility] Comment on above: Performed By: #### E RUR #### [facility] [address] [place] [address] Dr. Aleah Peres SPEC GRAVITY 1.020 Normal 1.005-<=1.025 [facility] Comment on above: Performed By: #### E RUR #### [facility] [address] [place] [address] Dr. Aleah Peres UA PROTEIN Negative Normal NEGATIVE/ TRACE [facility] Comment on above: Performed By: #### E RUR #### [facility] [address] [place] [address] Dr. Aleah Peres UR MICRO IND NOT INDICATED Normal [facility] Comment on above: Performed By: #### E RUR #### [facility] [address] [place] [address] Dr. Aleah Peres Urobilinogen Qn (U) 0.2 {Edmund'U}/dL Normal 0.2 - 1. 0 [facility] Comment on above: Performed By: #### E RUR #### [facility] [address] [place] [address] Dr. Aleah Peres PROF 14(COMP METB)on 023 Albumin [Mass/Vol] 3.0 g/dL Critically low 3.4-5.0 [facility] Comment on above: Performed By: #### C MP #### [facility] [address] [place] [address] Dr. Aleah Peres Albumin/Globulin [Mass ratio] 0.8 {ratio} Normal [facility] Comment on above: Performed By: #### C MP #### [facility] [address] [place] [address] Dr. Aleah Peres ALP [Catalytic activity/Vol] 52 U/L Normal 46-116 [facility] Comment on above: Performed By: #### C MP #### [facility] [address] [place] [address] Dr. Aleah Peres ALT [Catalytic activity/Vol] 15 U/L Normal 14-59 [facility] Comment on above: Performed By: #### C MP #### [facility] [address] [place] [address] Dr. Aleah Peres Anion gap [Moles/Vol] 10.2 mmol/L Normal [facility] Comment on above: Performed By: #### C MP #### [facility] [address] [place] [address] Dr. Aleah Peres AST [Catalytic activity/Vol] 13 U/L Critically low 15-37 [facility] Comment on above: Performed By: #### C MP #### [facility] [address] [place] [address] Dr. Aleah Peres Bilirubin [Mass/Vol] 0.2 mg/dL Normal 0.2-1.0 [facility] Comment on above: Performed By: #### C MP #### [facility] [address] [place] [address] Dr. Aleah Peres Calcium [Mass/Vol] 9.1 mg/dL Normal 8.5-10.1 [facility] Comment on above: Performed By: #### C MP #### [facility] [address] [place] [address] Dr. Aleah Peres Chloride [Moles/Vol] 100 mmol/L Normal 98-107 [facility] Comment on above: Performed By: #### C MP #### [facility] [address] [place] [address] Dr. Aleah Peres CO2 [Moles/Vol] 28.8 mmol/L Normal 21.0-32.0 [facility] Comment on above: Performed By: #### C MP #### [facility] [address] [place] [address] Dr. Aleah Peres Creatinine [Mass/Vol] 0.56 mg/dL Normal 0.55-1.02 [facility] Comment on above: Performed By: #### C MP #### [facility] [address] [place] [address] Dr. Aleah Peres EGFR-AF SYRIAN >60 Normal >=60 [facility] [facility] Comment on above: Performed By: #### C MP #### [facility] [address] [place] [address] Dr. Aleah Peres EGFR-NON AF SYRIAN >60 Normal >=60 [facility] Comment on above: Performed By: #### C MP #### [facility] [address] [place] [address] Dr. Aleah Peres Globulin (S) [Mass/Vol] 3.9 g/dL Normal [facility] Comment on above: Performed By: #### C MP #### [facility] [address] [place] [address] Dr. Aleah Peres Glucose [Mass/Vol] 90 mg/dL Normal 74-106 [facility] Comment on above: Performed By: #### C MP #### [facility] [address] [place] [address] Dr. Aleah Peres Potassium [Moles/Vol] 4.0 mmol/L Normal 3.5-5.1 [facility] Comment on above: Performed By: #### C MP #### [facility] [address] [address] [address] Aleah Peres Protein [Mass/Vol] 6.9 g/dL Normal 6.4-8.2 [facility] Comment on above: Performed By: #### C MP #### [facility] [address] [address] [address] Aleah Peres Sodium [Moles/Vol] 135 mmol/L Critically low 136-145 [facility] Comment on above: Performed By: #### C MP #### [facility] [address] [address] [address] Aleah Peres Urea nitrogen [Mass/Vol] 4.0 mg/dL Critically low 7.0-18.0 [facility] Comment on above: Performed By: #### C MP #### [facility] [address] [address] [address] Aleah Peres Urea nitrogen/Creatinine [Mass ratio] 7.1 mg/mg [facility] Comment on above: Performed By: #### C MP #### [facility] [address] [address] [address] Aleah Peres PAP ACOG PANEL 2: 20 to 28on 08-02-2022 . . Normal [facility] Comment on above: Result Comment: Perf ormed at: WB Performed By: #### [id number] #### [facility] [address] [address] [address] Aleah Peres Age Gdln ACOG Testing - Normal [facility] Comment on above: Performed By: #### [id number] #### [facility] [address] [address] [address] Aleah Peres DIAGNOSIS: Comment Abnormal [facility] Comment on above: Result Comment: EPIT HELIAL CELL ABNORMALITY. LOW GRADE SQUAMOUS INTRAEPITHELIAL LESION (LSIL). Performed at: WB Performed By: #### [id number] #### [facility] [address] [address] [address] Aleah Peres Electronically signed by: Comment Normal [facility] Comment on above: Result Comment: Amena Arciniega MD, Pathologist Performed at: WB Performed By: #### [id number] #### [facility] [address] [place] [address] Dr. Aleah Peres Methodology: Comment Normal [facility] Comment on above: Result Comment: This liquid based ThinPrep(R) pap test was screened with the use of an image guided system. Performed at: WB Performed By: #### [id number] #### [facility] [address] [place] [address] Dr. Aleah Peres Note: Comment Normal [facility] Comment on above: Result Comment: The Pap smear is a screening test designed to aid in the detection of premalignant and malignant conditions of the uterine cervix. It is not a diagnostic procedure and should not be used as the sole means of detecting cervical cancer. Both false-positive and false-negative reports do occur. . Performed at: WB Performed By: #### [id number] #### [facility] [address] [place] [address] Dr. Aleah Peres Pathologist Provided ICD10 Comment Normal [facility] Comment on above: Result Comment: [id number] Performed at: WB Performed By: #### [id number] #### [facility] [address] [place] [address] Dr. Aleah Peres Performed by: Comment Normal [facility] Comment on above: Result Comment: Caitlyn Crenshaw, Plywood Stock Grader (ASCP) Performed at: BA Performed By: #### [id number] #### [facility] [address] [place] [address] Dr. Aleah Peres Recommendation: Comment Abnormal [facility] Comment on above: Result Comment: Sugg est follow up as clinically appropriate. Performed at: WB Performed By: #### [id number] #### [facility] [address] [place] [address] Dr. Aleah Peres Reflex Criteria: Comment Normal [facility] Comment on above: Result Comment: The HPV DNA reflex criteria were not met with this specimen result therefore, no HPV testing was performed. . Performed at: WB Performed By: #### [id number] #### [facility] [address] [address] [address] Aleah Peres Specimen adequacy: Comment Normal [facility] Comment on above: Result Comment: Sati sfactory for evaluation. Endocervical and/or squamous metaplastic cells (endocervical component) are present. Performed at: WB Performed By: #### [id number] #### [facility] [address] [address] [address] Aleah Peres Covid-19 PCR ([facility])on 05-25 SARS-CoV-2 (COVID-19) RNA MARY ELLEN+probe Ql (Unsp spec) Not detected Normal NOT DETECTED [facility] Comment on above: Result Comment: When diagnostic [...] for this test is supported by the [employer] and Human Service's declaration that [...] used). Performed By: #### P REGQNT #### [facility] [address] [address] [address] Aleah Peres Encounters Encounter Date Encounter Type Care Provider Facility Start: 07-13-2023 End: 07-13-2023 ambulatory TERESITA HODGE Not Available Start: 06-13-2023 End: 06-13-2023 ambulatory MONICA DOBBINS Not Available Start: 11-10-2022 End: 11-10-[address] ALEXIA BARRETT . Facility:[facility] Start: 10-22-2022 End: 10-23-2022 ambulatory NATASHA CAMARA . Facility:[facility] Start: 10-08-2022 End: 10-09-2022 ambulatory ALEXIA BARRETT Facility:[facility] Start: 10-08-2022 End: 10-08-[address] ALEXIA BARRETT . Facility:[facility] Start: 10-06-2022 End: 10-07-[address] ALEXIA BARRETT . Facility:[facility] Start: 09-17-2022 Encounter for other preprocedural examination DR TERESITA HODGE . [facility] Start: 09-15-2022 End: 09-16-2022 ambulatory TERESITA HODGE Facility:[facility] Start: 09-15-2022 End: 09-15-[address] [...] Facility: Payers Date Payer Category Payer Medicaid [id number] 1999 Unknown [id number] 2.16.84 [id number] 1999 Unknown [id number] 2.16.84 [id number] 1999 Unknown [id number] 2.16.84 0.1.255954.3.579.2.593 1999 Unknown [id number] 2.16.84 0.1.954166.3.579.2.593 1999 Unknown [id number] 2.16.84 0.1.666289.3.579.2.593 1999 Unknown [id number] 2.16.84 0.1.002329.3.579.2.593 1999 Unknown [id number] 2.16.84 0.1.366725.3.579.2.593 1999 Unknown [id number] 2.16.84 0.1.792057.3.579.2.593 1999 Unknown [id number] 2.16.84 0.1.468017.3.579.2.593 1999 Unknown [id number] 2.16.84 0.1.067902.3.579.2.593 1999 Unknown [id number] 2.16.840 .1.010604.3.579.2.1259 1999 Unknown [id number] 2.16.840 .[id number] 1959 Unknown [id number] 1959 Unknown [id number] Clinical Note 09-15-2022 Note Date & Type [...] by: ASHLEY NOEL Date: 2022-09-15 07:41 [facility] Clinical Note 09-15-2022 Note Date & Type Note Facility 09-15-2022 Note OPERATIVE NOTE OPERATION DATE: 09/15/2022 PROCEDURE: Suction D AND C. PREOPERATIVE DIAGNOSIS: First trimester missed at 10 weeks. POSTOPERATIVE DIAGNOSIS: First trimester missed at 10 weeks. ANESTHESIA: General. SURGEON: Teresita Hodge D.O. SHOE STOCK ASSOCIATE: None. FINDINGS: Products of conception. SPECIMEN: Products [...] products of conception were removed using an 9-[place] suction curette. Excellent hemostasis was noted. The patient tolerated the procedure well. Sponge, lap, and needle counts were correct x 2. All instruments were then removed from the patient's vagina. The patient was taken to the Recovery Room in stable condition. ?? [facility] Summary Purpose Family History No Family History Records FoundNo Family History Records FoundNo Family History Records Found Advance Directives No Advanced Directives Records FoundNo Advanced Directives Records FoundNo Advanced Directives Records Found Additional Source Comments INFORMATION SOURCE (unrecogn ized section and content) DATE CREATED AUTHOR 10/12/2022 [facility] DATE CREATED AUTHOR AUTHOR'S ORGANIZ ATION 12/08/2022 [facility] DATE CREATED AUTHOR AUTHOR'S ORGANIZ ATION 07/15/2023 [facility] FOR RECORDS PERTAINING TO PATIENTS WHO ARE [...] BE BASED ON THE PRIMARY CLINICAL RECORDS. [facility] [employer] [facility]. provides no warranty or guarantee of the accuracy or completeness of information in this document.
== END 2023-07-26 12:53 | disposition home or self-care (01) ==
LOC: US 12:52
PROVIDERS: Visit Provider Obstetrics & Gynecology
DX: Z36.2 Encounter for other antenatal screening follow-up (principal)
CPT/HCPCS: 76816

== ENCOUNTER 2023-08-12 10:49 | Outpatient (OUT) | payer MEDICAID, SELFPAY ==
--- OUTSIDE RECORDS SUMMARY | 2023-08-12 10:52 | XMS_ITS | CCD ---
Author Name Unknown Address [address] [place] [address] Organization [employer] Care Team Providers Care Biological Sciences Professor Name Role Phone ALEXIA BARRETT Attending Unavailable SANDHYATERESITA Munoz Attending Unavailable KARASIK ., DR HALE Attending Unavailabl e KARASIK ., DR HALE Admitting Unavailabl e KARASIK ., DR HALE Consulting Unavailabl e REQUEST, DR NONE LISTED Primary Care Unavaila ble KARASIK ., DR HALE Consulting Unavailabl e KARASIK ., DR HALE Attending Unavailabl e KARASIK ., DR HLAE Admitting Unavailabl e REQUEST, NONE LISTED Primary [...] Unavailable HOA ., NATASHA Consulting Unavailable REQUEST, DR AGUILAR LISTED Primary Care Unavaila ble SANDHYA ., [...] REQUEST, DR NONE LISTED Primary Care Unavaila ANTELMO Meléndez Consulting Unavailable KARASIK ., DR HALE Attending Unavailabl e KARASIK ., DR HALE Admitting Unavailabl e KARASIK ., DR HALE Consulting Unavailabl e REQUEST, DR NONE LISTED Primary Care Unavaila ble MU, MONICA Attending Unavailable MU, MONICA Attending Unavailable SANDHYA, TERESITA Attending Unavailable [...] 2: 20 to 28on 11-17-2022 . . [facility] Comment on above: Performed By: #### [id number] #### [facility] [address] [place] [address] Dr. Aleah Peres Age Gdln ACOG Testing - [facility] Comment on above: Performed By: #### 4 [id number] #### [facility] [address] [place] [address] Dr. Aleah Peres DIAGNOSIS: Comment [facility] Comment on above: Result Comment: NEGA TIVE FOR INTRAEPITHELIAL LESION OR MALIGNANCY. Performed By: #### 4 [id number] #### [facility] [address] [place] [address] Dr. Aleah Peres Methodology: Comment [facility] Comment on above: Result Comment: This liquid based ThinPrep(R) pap test was screened with the use of an image guided system. Performed By: #### 4 [id number] #### [facility] [address] [place] [address] Dr. Aleah Peres Note: Comment [facility] Comment on above: Result Comment: The Pap smear is a screening test designed to aid in the detection of premalignant and malignant conditions of the uterine cervix. It is not a diagnostic procedure and should not be used as the sole means of detecting cervical cancer. Both false-positive and false-negative reports do occur. . Performed By: #### 4 [id number] #### [facility] [address] [place] [address] Dr. Aleah Peres Performed by: Comment [facility] Comment on above: Result Comment: Annelise Martinez, Respiratory Supervisor Performed By: #### 4 [id number] #### [facility] [address] [address] [address] Aleah Peres Reflex Criteria: Comment Normal [facility] Comment on above: Result Comment: The HPV DNA reflex criteria were not met with this specimen result therefore, no HPV testing was performed. . Performed By: #### 4 [id number] #### [facility] [address] [address] [address] Aleah Peres Specimen adequacy: Comment Normal [facility] Comment on above: Result Comment: Sati sfactory for evaluation. Endocervical and/or squamous metaplastic cells (endocervical component) are present. Performed By: #### 4 [id number] #### [facility] [address] [place] [address] Dr. Aleah Peres OCC BLD IMMUNO SCREENon 04-0 OCCULT BLOOD Negative Normal NEGATIVE [facility] Comment on above: Performed By: #### O BSCRN #### [facility] [address] [place] [address] Dr. Aleah Peres SURGICAL PATH REPORTon 10-11 SURGICAL PATH REPORT [facility] Department of Pathology [address] [place] [phone] Name: CAMERON CHAVEZ : 2000 [facility] [id number] Number: Gender Female [facility] : n: Admit 22 years Attending ALEXIA BARRETT Age: Provider: Ordering ALEXIA BARRETT Provider: Consulti Surgical Pathology Report ng: ACCESSION: COLLECTED DATE/TIME: RECEIVED DATE/TIME: PATHOLOGIST: [id number] 10/08/2022 12:03 EDT 10/08/2022 12:03 EDT TOM AGUERO MD Final Diagnosis Report for [facility] [place] [place] RETAINED PRODUCTS OF CONCEPTION: - CHORIONIC [...] ald 10/08/2022 Tissue pathology report for: [facility], [address] [place] [address]; ____ ____ Print 10/11/2022 15:01 EDT Number: Date/Time: [facility] Department of Pathology [address] [place] [phone] Name: CAMERON CHAVEZ : 2000 [facility] [id number] Number: Gender Female [facility] : n: Admit 22 years Attending ALEXIA BARRETT Age: Provider: Ordering ALEXIA BARRETT Provider: Consulti Surgical Pathology Report ng: ACCESSION: COLLECTED DATE/TIME: RECEIVED DATE/TIME: PATHOLOGIST: [id number] 10/08/2022 12:03 EDT 10/08/2022 12:03 EDT TOM AGUERO MD Gross Description PATHOLOGY SERVICES PROVIDED BY [employer] , [employer] (CLIA #[id number]) in cooperation with [facility] at [address] [place] [address] ( CLIA #[id number]) Codes CPT CODE: 73663 ____ ____ Print 10/11/2022 15:01 EDT Number: Date/Time: Normal [facility] Comment on above: Performed By: #### [id number] #### [facility] Laboratory Services [address] [place] [id number] Lap Machine Operator: Tom Aguero MD URon 10-08-2022 , QUAL Negative Normal NEGATIVE [facility] Comment on above: Performed By: #### P REGU #### [facility] [address] [place] [address] Dr. Aleah Peres US PELVIS AND TRANSVAGon [...] by: PIPPA ORTEGA Date: 2022-10-06 14:55 Normal [facility] SURGICAL PATH REPORTon 09-16 SURGICAL PATH REPORT [facility] Department of Pathology [id number] [place] [id number] Name: CHULA CHAVEZ : 2000 [employer] [id number] Number: Gender Female [facility] : n: Admit 22 years Attending SANDHYA , TERESITA R Age: Provider: Ordering TERESITA HODGE Provider: Consulti Surgical Pathology Report ng: ACCESSION: COLLECTED DATE/TIME: RECEIVED DATE/TIME: PATHOLOGIST: [id number] 09/15/2022 12:34 EST 09/15/2022 12:34 EST LILLIE KHAN, LUIS ERAZO Final Diagnosis Report for [facility], [place], [place] PRODUCTS OF CONCEPTION, DILATION AND CURETTAGE: - CHORIONIC VILLI ARE PRESENT; NO SIGNIFICANT ATYPIA IS OBSERVED. - BENIGN MATERIAL DECIDUA PRESENT. - NO PARTS ARE IDENTIFIED. LUIS MOREIRA PATHOLOGIST (Electronic Signature) Date Verified 09/16/2022 LN Clinical Data PRE-OP DIAGNOSIS: Not specified POST-OP DIAGNOSIS: Missed PROCEDURES: D and C with suction SPECIMEN: Products of conception / career agent Gross Description Labeled products of conception. Received in formalin in a suction sock are multiple irregular segments of medrano pink to red black soft tissue. The individual segments have a variable granular to partially smooth glistening membranous character. The specimen in total aggregate measures 12.5 x 7.5 x 4.0 cm. There are no grossly identifiable parts. Tour Operator sections are submitted in three cassettes. MP/ald 09/15/2022 ____ ____ Print 09/16/2022 14:53 EST Number: Date/Time: [facility] Department of Pathology [address] [place] [phone] Name: CHULA CHAVEZ : 2000 [facility] [id number] Number: Gender Female Peter [facility] [place] : n: Admit 22 years Attending TERESITA HODGE Age: Provider: Ordering TERESITA HODGE Provider: Consulti Surgical Pathology Report ng: ACCESSION: COLLECTED DATE/TIME: RECEIVED DATE/TIME: PATHOLOGIST: [id number] 09/15/2022 12:34 EST 09/15/2022 12:34 EST LILLIE KHAN, LUIS ERAZO Gross Description Tissue pathology report for: [facility], [address] [place] [address]; PATHOLOGY SERVICES PROVIDED BY [employer] (CLIA #[id number]) in cooperation with [facility] at [address] [place] [address] ( CLIA #[id number]) Codes CPT CODE: 15862 ____ ____ Print 09/16/2022 14:53 EST Number: Date/Time: Normal [facility] Comment on above: Performed By: #### 9 [id number] #### [facility] Laboratory Services [address] [place] [address] Lap Machine Operator: Tom Aguero MD CBC AUTO DIFFon 09-15-2022 BASO # 0.0 103/ul Normal 0.0-0.1 [facility] Comment on above: Performed By: #### C BC #### [facility] [address] [place] [address] Dr. Aleah Peres Basophils/100 WBC (Bld) 0.4 % Normal 0.2-2.0 [facility] Comment on above: Performed By: #### C BC #### [facility] [address] [place] [address] Dr. Aleah Peres EO # 0.1 103/ul Normal 0.0-0.7 [facility] Comment on above: Performed By: #### C BC #### [facility] [address] [place] [address] Dr. Aleah Peres Eosinophils/100 WBC (Bld) 1.3 % Normal 0.9-7.0 [facility] Comment on above: Performed By: #### C BC #### [facility] [address] [place] [address] Dr. Aleah Peres Erythrocyte distribution width (RBC) [Ratio] 13.8 % Normal 11.0-15.0 [facility] Comment on above: Performed By: #### C BC #### [facility] [address] [place] [address] Dr. Aleah Peres Hematocrit (Bld) [Volume fraction] 35.5 % Critically low 36.0-48.0 [facility] Comment on above: Performed By: #### C BC #### [facility] [address] [place] [address] Dr. Aleah Peres Hemoglobin (Bld) [Mass/Vol] 11.6 g/dL Critically low 12.0-16.0 [facility] Comment on above: Performed By: #### C BC #### [facility] [address] [place] [address] Dr. Aleah Peres IG # 0.03 10e3/ul Normal 0.00-0.03 [facility] Comment on above: Performed By: #### C BC #### [facility] [address] [place] [address] Dr. Aleah Peres IG % 0.4 % Normal 0.0-0.5 [facility] Comment on above: Performed By: #### C BC #### [facility] [address] [place] [address] Dr. Aleah Peres LYMPH # 2.8 103/ul Normal 1.2-3.8 [facility] Comment on above: Performed By: #### C BC #### [facility] [address] [place] [address] Dr. Aleah Peres Lymphocytes/100 WBC (Bld) 32.9 % Normal 20.5-60.0 [facility] Comment on above: Performed By: #### C BC #### [facility] [address] [place] [address] Dr. Aleah Peres MANUAL DIFF REQ NO Normal [facility] Comment on above: Performed By: #### C BC #### [facility] [address] [place] [address] Dr. Aleah Peres MCH (RBC) [Entitic mass] 26.9 pg Normal 26.7-34.0 [facility] Comment on above: Performed By: #### C BC #### [facility] [address] [place] [address] Dr. Aleah Peres MCHC (RBC) [Mass/Vol] 32.7 g/dL Normal 29.9-35.2 [facility] Comment on above: Performed By: #### C BC #### [facility] [address] [place] [address] Dr. Aleah Peres MCV (RBC) [Entitic vol] 82.4 fL Normal 81.0-99.0 [facility] Comment on above: Performed By: #### C BC #### [facility] [address] [place] [address] Dr. Aleah Peres MONO # 0.7 103/ul Normal 0.3-0.8 [facility] Comment on above: Performed By: #### C BC #### [facility] [address] [place] [address] Dr. Aleah Peres Monocytes/100 WBC (Bld) 8.6 % Normal 1.7-12.0 [facility] Comment on above: Performed By: #### C BC #### [facility] [address] [place] [address] Dr. Aleah Peres NEUT # 4.8 103/ul Normal 1.4-6.5 [facility] Comment on above: Performed By: #### C BC #### [facility] [address] [place] [address] Dr. Aleah Peres Neutrophils/100 WBC (Bld) 56.4 % Normal 43.0-75.0 [facility] Comment on above: Performed By: #### C BC #### [facility] [address] [place] [address] Dr. Aleah Peres Platelet mean volume (Bld) [Entitic vol] 9.9 fL Normal 9.5-13.5 [facility] Comment on above: Performed By: #### C BC #### [facility] [address] [place] [address] Dr. Aleah Peres PLT 316 103/ul Normal 150-450 [facility] Comment on above: Performed By: #### C BC #### [facility] [address] [place] [address] Dr. Aleah Peres RBC 4.31 106/ul Normal 4.20-5.40 [facility] Comment on above: Performed By: #### C BC #### [facility] [address] [place] [address] Dr. Aleah Peres WBC 8.4 103/ul Normal 4.0-11.0 [facility] Comment on above: Performed By: #### C BC #### [facility] [address] [place] [address] Dr. Aleah Peres PREG QUANT HCGon 09-15-2022 HCG QUANT [id number] mIU/mL Normal [facility] Comment on above: Performed By: #### P REGQNT #### [facility] [address] [place] [address] Dr. Aleah Peres HCG RANGE SEE BELOW Normal [facility] Comment on above: Result Comment: 5-50 0.2-1 WEEK 50-500 1-2 WEEKS 100-5,000 2-3 WEEKS 500-10,000 3-4 WEEKS 1,000-50,000 4-5 WEEKS 10,000-100,000 5-6 WEEKS 15,000-200,000 6-8 WEEKS 10,000-100,000 2-3 MONTHS Performed By: #### P REGQNT #### [facility] [address] [place] [address] Dr. Aleah Peres TYPE AND SCREENon 09-15-2022 TYPE AND SCREEN Negative Normal [facility] Comment on above: Performed By: #### P REGQNT #### [facility] [address] [place] [address] Dr. Aleah Peres US PELVISon 09-15-2022 US PELVIS EXAMINATION: US PELV IS HISTORY: Spontaneous COMPARISON: No relevant comparison available. TECHNIQUE: Transabdominal and transvaginal sonographic examination. FINDINGS: UTERUS: Small amount of fluid within endometrial cavity. No visible retained products of conception. IMPRESSION: 1. No appreciable retained products of conception within uterine cavity. Electronically authenticated by: ASHLEY NOEL Date: 2022-09-15 15:42 Normal [facility] US PREG TVon 09-13-2022 US PREG TV [...] Right ovary was not identified. Normal [facility] CBC AUTO DIFFon 08-16-2022 BASO # 0.0 103/ul Normal 0.0-0.1 [facility] Comment on above: Performed By: #### C BC #### [facility] [address] [place], [place] [address] Dr. Aleah Peres Basophils/100 WBC (Bld) 0.4 % Normal 0.2-2.0 [facility] Comment on above: Performed By: #### C BC #### [facility] [address] [address] [address] Aleah Peres EO # 0.1 103/ul Normal 0.0-0.7 [facility] Comment on above: Performed By: #### C BC #### [facility] [address] [place] [address] Dr. Aleah Peres Eosinophils/100 WBC (Bld) 1.4 % Normal 0.9-7.0 [facility] Comment on above: Performed By: #### C BC #### [facility] [address] [place] [address] Dr. Aleah Peres Erythrocyte distribution width (RBC) [Ratio] 13.6 % Normal 11.0-15.0 [facility] Comment on above: Performed By: #### C BC #### [facility] [address] [place] [address] Dr. Aleah Peres Hematocrit (Bld) [Volume fraction] 32.4 % Critically low 36.0-48.0 [facility] Comment on above: Performed By: #### C BC #### [facility] [address] [place] [address] Dr. Aleah Peres Hemoglobin (Bld) [Mass/Vol] 11.2 g/dL Critically low 12.0-16.0 [facility] Comment on above: Performed By: #### C BC #### [facility] [address] [place] [address] Dr. Aleah Peres IG # 0.02 10e3/ul Normal 0.00-0.03 [facility] Comment on above: Performed By: #### C BC #### [facility] [address] [place] [address] Dr. Aleah Peres IG % 0.3 % Normal 0.0-0.5 [facility] Comment on above: Performed By: #### C BC #### [facility] [address] [place] [address] Dr. Aleah Peres LYMPH # 2.4 103/ul Normal 1.2-3.8 [facility] Comment on above: Performed By: #### C BC #### [facility] [address] [place] [address] Dr. Aleah Peres Lymphocytes/100 WBC (Bld) 32.3 % Normal 20.5-60.0 [facility] Comment on above: Performed By: #### C BC #### [facility] [address] [place] [address] Dr. Aleah Peres MANUAL DIFF REQ NO Normal [facility] Comment on above: Performed By: #### C BC #### [facility] [address] [place] [address] Dr. Aleah Peres MCH (RBC) [Entitic mass] 26.9 pg Normal 26.7-34.0 [facility] Comment on above: Performed By: #### C BC #### [facility] [address] [place] [address] Dr. Aleah Peres MCHC (RBC) [Mass/Vol] 34.6 g/dL Normal 29.9-35.2 [facility] Comment on above: Performed By: #### C BC #### [facility] [address] [place] [address] Dr. Aleah Peres MCV (RBC) [Entitic vol] 77.9 fL Critically low 81.0-99.0 [facility] Comment on above: Performed By: #### C BC #### [facility] [address] [place] [address] Dr. Aleah Peres MONO # 0.7 103/ul Normal 0.3-0.8 [facility] Comment on above: Performed By: #### C BC #### [facility] [address] [place] [address] Dr. Aleah Peres Monocytes/100 WBC (Bld) 9.1 % Normal 1.7-12.0 [facility] Comment on above: Performed By: #### C BC #### [facility] [address] [place] [address] Dr. Aleah Peres NEUT # 4.1 103/ul Normal 1.4-6.5 [facility] Comment on above: Performed By: #### C BC #### [facility] [address] [place] [address] Dr. Aleah Peres Neutrophils/100 WBC (Bld) 56.5 % Normal 43.0-75.0 [facility] Comment on above: Performed By: #### C BC #### [facility] [address] [place] [address] Dr. Aleah Peres Platelet mean volume (Bld) [Entitic vol] 9.4 fL Critically low 9.5-13.5 [facility] Comment on above: Performed By: #### C BC #### [facility] [address] [place] [address] Dr. Aleah Peres PLT 303 103/ul Normal 150-450 [facility] Comment on above: Performed By: #### C BC #### [facility] [address] [place] [address] Dr. Aleah Peres RBC 4.16 106/ul Critically low 4.20-5.40 [facility] Comment on above: Performed By: #### C BC #### [facility] [address] [place] [address] Dr. Aleah Peres WBC 7.3 103/ul Normal 4.0-11.0 [facility] Comment on above: Performed By: #### C BC #### [facility] [address] [place] [address] Dr. Aleah Peres ER URINE PROFILEon 3 Bilirubin Ql (U) Negative Normal NEGATIVE [facility] Comment on above: Performed By: #### E RUR #### [facility] [address] [place] [address] Dr. Aleah Peres Clarity (U) CLEAR Normal CLEAR [facility] Comment on above: Performed By: #### E RUR #### [facility] [address] [place] [address] Dr. Aleah Peres Color (U) YELLOW Normal YELLOW [facility] Comment on above: Performed By: #### E RUR #### [facility] [address] [place] [address] Dr. Aleah OMALLEY A micrscopic examination will be performed if indicated. Normal [facility] Comment on above: Performed By: #### E RUR #### [facility] [address] [place] [address] Dr. Aleah Peres Glucose Ql (U) Negative Normal NEGATIVE [facility] Comment on above: Performed By: #### E RUR #### [facility] [address] [place] [address] Dr. Aleah Peres Hemoglobin Ql (U) Negative Normal NEGATIVE [facility] Comment on above: Performed By: #### E RUR #### [facility] [address] [place] [address] Dr. Aleah Peres Ketones Ql (U) Negative Normal NEGATIVE [facility] Comment on above: Performed By: #### E RUR #### [facility] [address] [place] [address] Dr. Aleah Peres LEUKOCYTES Negative Normal NEGATIVE [facility] Comment on above: Performed By: #### E RUR #### [facility] [address] [place] [address] Dr. Aleah Peres Nitrite Ql (U) Negative Normal NEGATIVE [facility] Comment on above: Performed By: #### E RUR #### [facility] [address] [place] [address] Dr. Aleah Peres pH (U) 6.0 [pH] Normal 5-9 [facility] Comment on above: Performed By: #### E RUR #### [facility] [address] [place] [address] Dr. lAeah Peres SPEC GRAVITY 1.020 Normal 1.005-<=1.025 [facility] Comment on above: Performed By: #### E RUR #### [facility] [address] [place] [address] Dr. Aleah Peres UA PROTEIN Negative Normal NEGATIVE/ TRACE [facility] Comment on above: Performed By: #### E RUR #### [facility] [address] [place] [address] Dr. Aleah Peres UR MICRO IND NOT INDICATED Normal [facility] Comment on above: Performed By: #### E RUR #### [facility] [address] [place] [address] Dr. Aleah Peres Urobilinogen Qn (U) 0.2 {Edmund'U}/dL Normal 0.2 - 1. 0 [facility] Comment on above: Performed By: #### E RUR #### [facility] [address] [place] [address] Dr. Aleah Peres PROF 14(COMP METB)on 023 Albumin [Mass/Vol] 3.0 g/dL Critically low 3.4-5.0 [facility] Comment on above: Performed By: #### C MP #### [facility] [address] [place] [address] Dr. Aleah Peres Albumin/Globulin [Mass ratio] 0.8 {ratio} Normal [facility] Comment on above: Performed By: #### C MP #### [facility] [address] [place] [address] Dr. Aleah Peres ALP [Catalytic activity/Vol] 52 U/L Normal 46-116 [facility] Comment on above: Performed By: #### C MP #### [facility] [address] [place] [address] Dr. Aleah Peres ALT [Catalytic activity/Vol] 15 U/L Normal 14-59 [facility] Comment on above: Performed By: #### C MP #### [facility] [address] [place] [address] Dr. Aleah Peres Anion gap [Moles/Vol] 10.2 mmol/L Normal [facility] Comment on above: Performed By: #### C MP #### [facility] [address] [place] [address] Dr. Aleah Peres AST [Catalytic activity/Vol] 13 U/L Critically low 15-37 [facility] Comment on above: Performed By: #### C MP #### [facility] [address] [place] [address] Dr. Aleah Peres Bilirubin [Mass/Vol] 0.2 mg/dL Normal 0.2-1.0 [facility] Comment on above: Performed By: #### C MP #### [facility] [address] [place] [address] Dr. Aleah Peres Calcium [Mass/Vol] 9.1 mg/dL Normal 8.5-10.1 [facility] Comment on above: Performed By: #### C MP #### [facility] [address] [address] [address] Aleah Peres Chloride [Moles/Vol] 100 mmol/L Normal 98-107 [facility] Comment on above: Performed By: #### C MP #### [facility] [address] [address] [address] Aleah Peres CO2 [Moles/Vol] 28.8 mmol/L Normal 21.0-32.0 [facility] Comment on above: Performed By: #### C MP #### [facility] [address] [place] [address] Dr. Aleah Peres Creatinine [Mass/Vol] 0.56 mg/dL Normal 0.55-1.02 [facility] Comment on above: Performed By: #### C MP #### [facility] [address] [place] [address] Dr. Aleah Peres EGFR-AF NAMIBIAN >60 Normal >=60 [facility] Comment on above: Performed By: #### C MP #### [facility] [address] [place] [address] Dr. Aleah Peres EGFR-NON AF NAMIBIAN >60 Normal >=60 [facility] Comment on above: Performed By: #### C MP #### [facility] [address] [place] [address] Dr. Aleah Peres Globulin (S) [Mass/Vol] 3.9 g/dL Normal [facility] Comment on above: Performed By: #### C MP #### [facility] [address] [address] [address] Aleah Peres Glucose [Mass/Vol] 90 mg/dL Normal 74-106 [facility] Comment on above: Performed By: #### C MP #### [facility] [address] [place] [address] Dr. Aleah Peres Potassium [Moles/Vol] 4.0 mmol/L Normal 3.5-5.1 [facility] Comment on above: Performed By: #### C MP #### [facility] [address] [address] [address] Aleah Peres Protein [Mass/Vol] 6.9 g/dL Normal 6.4-8.2 [facility] Comment on above: Performed By: #### C MP #### [facility] [address] [address] [address] Aleah Peres Sodium [Moles/Vol] 135 mmol/L Critically low 136-145 [facility] Comment on above: Performed By: #### C MP #### [facility] [address] [address] [address] Aleah Peres Urea nitrogen [Mass/Vol] 4.0 mg/dL Critically low 7.0-18.0 [facility] Comment on above: Performed By: #### C MP #### [facility] [address] [address] [address] Aleah Peres Urea nitrogen/Creatinine [Mass ratio] 7.1 mg/mg [facility] Comment on above: Performed By: #### C MP #### [facility] [address] [address] [address] Aleah Peres PAP ACOG PANEL 2: 21 to 28on 08-02-2022 . . Normal [facility] Comment on above: Result Comment: Perf ormed at: [facility] Performed By: #### [id number] #### [facility] [address] [address] [address] Aleah Peres Age Gdln ACOG Testing Normal [facility] Comment on above: Performed By: #### [id number] #### [facility] [address] [address] [address] Aleah Peres DIAGNOSIS: Comment Abnormal [facility] Comment on above: Result Comment: EPIT HELIAL CELL ABNORMALITY. LOW GRADE SQUAMOUS INTRAEPITHELIAL LESION (LSIL). Performed at: [facility] Performed By: #### [id number] #### [facility] [address] [address] [address] Aleah Peres Electronically signed by: Comment Normal [facility] Comment on above: Result Comment: Amena Arciniega MD, Pathologist Performed at: [facility] Performed By: #### [id number] #### [facility] [address] [place] [address] Dr. Aleah Peres Methodology: Comment Normal [facility] Comment on above: Result Comment: This liquid based ThinPrep(R) pap test was screened with the use of an image guided system. Performed at: [facility] Performed By: #### [id number] #### [facility] [address] [place] [address] Dr. Aleah Peres Note: Comment Normal [facility] Comment on above: Result Comment: The Pap smear is a screening test designed to aid in the detection of premalignant and malignant conditions of the uterine cervix. It is not a diagnostic procedure and should not be used as the sole means of detecting cervical cancer. Both false-positive and false-negative reports do occur. . Performed at: [facility] Performed By: #### [id number] #### [facility] [address] [place] [address] Dr. Aleah Peres Pathologist Provided ICD10 Comment Normal [facility] Comment on above: Result Comment: [id number]. [id number] Performed at: WB Performed By: #### [id number] #### [facility] [address] [place] [address] Dr. Aleah Peres Performed by: Comment Normal [facility] Comment on above: Result Comment: Caitlyn Crenshaw, Respiratory Supervisor (ASCP) Performed at: [facility] Performed By: #### [id number] #### [facility] [address] [place] [address] Dr. Aleah Peres Recommendation: Comment Abnormal [facility] Comment on above: Result Comment: Sugg est follow up as clinically appropriate. Performed at: WB Performed By: #### [id number] #### [facility] [address] [place] [address] Dr. Aleah Peres Reflex Criteria: Comment Normal [facility] Comment on above: Result Comment: The HPV DNA reflex criteria were not met with this specimen result therefore, no HPV testing was performed. . Performed at: WB Performed By: #### [id number] #### [facility] [address] [address] [address] Aleah Peres Specimen adequacy: Comment Normal [facility] Comment on above: Result Comment: Sati sfactory for evaluation. Endocervical and/or squamous metaplastic cells (endocervical component) are present. Performed at: WB Performed By: #### [id number] #### [facility] [address] [address] [address] Aleah Pe[facility] SARS-CoV-2 (COVID-19) RNA MARY ELLEN+probe Ql (Unsp spec) Not detected Normal NOT DETECTED [facility] Comment on above: Result Comment: When diagnostic [...] for this test is supported by the [employer] of Health and Human Service's declaration that [...] used). Performed By: #### P REGQNT #### [facility] [address] [place], [place] [id number] Dr. Aleah Peres Encounters Encounter Date Encounter Type Care Provider Facility Start: 08-10-2023 End: 08-10-2023 ambulatory MONICA DOBBINS Not Available Start: 07-13-2023 End: 07-13-2023 ambulatory TERESITA HODGE Not Available Start: 06-13-2023 End: 06-13-2023 ambulatory MONICA DOBBINS Not Available Start: 11-10-2022 End: 11-10-[address] ALEXIA BARRETT . Facility:[facility] Start: 10-22-2022 End: 10-23-2022 ambulatory NTAASHA CAMARA . Facility:[facility] Start: 10-08-2022 End: 10-09-2022 ambulatory ALEXIA BARRETT Facility:[facility] Start: 10-08-2022 End: 10-08-[address] ALEIXA BARRETT . Facility:[facility] Start: 10-06-2022 End: 10-07-[address] ALEXIA BARRETT . Facility:[facility] Start: 09-17-2022 Encounter for other preprocedural examination DR TERESITA HODGE . [facility] Start: 09-15-2022 End: 09-16-2022 ambulatory TERESITA HODGE Facility:[facility] Start: 09-15-2022 End: 09-15-[address] TERESITA [...] Facility: Payers Date Payer Category Payer Medicaid [id number] 2000 Unknown [id number] 2.16.84 [id number] 2000 Unknown [id number] 2.16.84 [id number] 1999 Unknown [id number] 2.16.84 0.1.441354.3.579.2.593 1999 Unknown [id number] 2.16.84 0.1.661099.3.579.2.593 1999 Unknown [id number] 2.16.84 0.1.839151.3.579.2.593 1999 Unknown [id number] 2.16.84 0.1.266569.3.579.2.593 1999 Unknown [id number] 2.16.84 0.1.242996.3.579.2.593 1999 Unknown [id number] 2.16.84 0.1.458286.3.579.2.593 1999 Unknown [id number] 2.16.84 0.1.237581.3.579.2.593 1999 Unknown [id number] 2.16.84 0.1.478190.3.579.2.593 1999 Unknown [id number] 2.16.84 0.1.832688.3.579.2.1259 1999 Unknown [id number] 2.16.840 .1.210910.3.579.2.1259 1999 Unknown [id number] 2.16.840 .1.920673.3.579.2.1259 1959 Unknown [id number] 1960 Unknown [id number] Clinical Note 09-15-2022 Note Date & Type Note Facility 09-15-2022 Note EXAMINATION: US PREG TV HISTORY: Spontaneous ; pre-DANNC evaluation COMPARISON: Ultrasound transvaginal 09/13/2022 FINDINGS: GESTATIONAL [...] by: ASHLEY NOEL Date: 2022-09-15 07:41 [facility] Clinical Note 09-15-2022 Note Date & Type Note Facility 02-22-2023 Note OPERATIVE NOTE OPERATION DATE: 09/15/2022 PROCEDURE: Suction D AND C. PREOPERATIVE DIAGNOSIS: First trimester missed at 10 weeks. POSTOPERATIVE DIAGNOSIS: First trimester missed at 10 weeks. ANESTHESIA: General. SURGEON: Teresita Hodge D.O. SCRIPT WORKER: None. FINDINGS: Products of conception. SPECIMEN: Products [...] products of conception were removed using an 9-[place] suction curette. Excellent hemostasis was noted. The patient tolerated the procedure well. Sponge, lap, and needle counts were correct x 2. All instruments were then removed from the patient's vagina. The patient was taken to the Recovery Room in stable condition. ?? [facility] Summary Purpose Family History No Family History Records FoundNo Family History Records FoundNo Family History Records Found Advance Directives No Advanced Directives Records FoundNo Advanced Directives Records FoundNo Advanced Directives Records Found Additional Source Comments INFORMATION SOURCE (unrecogn ized section and content) DATE CREATED AUTHOR 10/12/2022 [facility] DATE CREATED AUTHOR AUTHOR'S ORGANIZ ATION 12/08/2022 [facility] DATE CREATED AUTHOR AUTHOR'S ORGANIZ ATION 08/11/2023 [facility] FOR RECORDS PERTAINING TO PATIENTS WHO [...] BE BASED ON THE PRIMARY CLINICAL RECORDS. [facility] [employer] [facility]. provides no warranty or guarantee of the accuracy or completeness of information in this document.
[2023-08-12 12:25] LABS: Basophils Percent Auto 0.1 % (0.2-2.0); Eosinophils Percent Auto 0.4 % (0.9-7.0); Hematocrit 33.4 % (36.0-48.0); Hemoglobin 10.3 g/dL (12.0-16.0); Immature Granulocytes Abs Auto 0.07 10^3/uL (0.00-0.03); Immature Granulocytes Pct Auto 0.8 % (0.0-0.5); Lymphocytes Absolute Auto 1.9 10^3/uL (1.2-3.8); Lymphocytes Percent Auto 20.8 % (20.5-60.0); Mean Corpuscular HGB Conc 30.8 g/dL (29.9-35.2); Mean Corpuscular Hemoglobin 26.5 pg (26.7-34.0); Mean Corpuscular Volume 86.1 fL (81.0-99.0); Mean Platelet Volume 10.8 fL (9.5-13.5); Monocytes Absolute Auto 0.6 10^3/uL (0.3-0.8); Monocytes Percent Auto 6.2 % (1.7-12.0); Neutrophils Absolute Auto 6.5 10^3/uL (1.4-6.5); Neutrophils Percent Auto 71.7 % (43.0-75.0); Platelet Count 276 10^3/uL (150-450); Red Blood Count 3.88 10^6/uL (4.20-5.40); Red Cell Distribution Width 14.2 % (11.0-15.0); White Blood Count 9.1 10^3/uL (4.0-11.0)
[2023-08-12 13:07] LABS: Glucose 1 Hour 115 mg/dL
== END 2023-08-12 10:50 | disposition home or self-care (01) ==
LOC: LAB 10:50
PROVIDERS: Visit Provider Obstetrics & Gynecology
DX: Z34.92 Encounter for supervision of normal pregnancy, unspecified, second trimester (principal)
CPT/HCPCS: 36415; 82950; 85025

== ENCOUNTER 2023-09-30 08:56 | Outpatient (OUT) | payer MEDICAID, SELFPAY ==
--- NOTE | 2023-09-30 08:59 | US_ITS ---
[address] [address] Patient Name: CHULA CHAVEZ MRN: [id number] date: 2000 Sex: F [facility]igned [facility] Accession/Order Number: [id number] Exam Date: 09/30/2023 09:00 Report Date: 09/30/2023 09:42 At the request of: TERESITA ARTHUR Procedure: US OB growth EXAMINATION: US OB growth HISTORY: LGA, VAGINAL DISCHARGE COMPARISON: Ultrasound OB follow-up 07/26/2023, ultrasound OB anatomy 06/27/2023 FINDINGS: Heart Rate: 156.0 bpm Number: 1.0 Position: CEPHALIC Amniotic Fluid Volume: 11.8 cm Maximum Vertical Pocket: 4.1 cm BIOMETRY: BPD: 8.5 cm cm; 34 weeks 2 days; 54% HC: 30.4 cmcm; 33 weeks 6 days ; 11% AC: 30.3 cm cm; 34 weeks 2 days; 59% FL: 6.2 cm cm; 32 weeks 0 days; 4% EFW: 2236.6 grams; 29% FL/AC: 20.4 FL/BPD: 72.5 HC/AC: 1.0 GESTATIONAL AGE: Age by EDC: 34 weeks 1 days FERN by EDC: 11/10/2023 Age by US: 33 weeks 4 days FERN by US: 11/14/2023 US/US OB growth IMPRESSION: 1. Single live intrauterine with growth detailed above. 2. Femur length is at 4th percentile. Electronically authenticated by: ASHLEY NOEL Date: 09/30/2023 09:42
--- OUTSIDE RECORDS SUMMARY | 2023-09-30 09:03 | XMS_ITS | CCD ---
Author Name Unknown Address [address] [place] [address] Organization [facility] Care Team Providers Care Duct Layer Helper Name Role Phone ALEXIA BARRETT Attending Unavailable AYESHATERESITA Munoz Attending Unavailable KARASIK ., DR HALE [...] BRANDEN, DR MAGDA Bryant Consulting Unavailable REQUEST, DR NONE LISTED Primary Care Unavaila ble STEVEN ARELLANO Attending Unavailable EILEEN, STEVEN Admitting Unavailable EILEEN, STEVEN Consulting Unavailable REQUEST, NONE LISTED Primary Care Unavaila ble HOA ., NATASHA Attending Unavailable HOA ., NATASHA Admitting Unavailable HOA ., NATASHA Consulting Unavailable REQUEST, NONE LISTED Primary Care Unavaila ble AYESHA ., DR LO Admitting Unavailable HICKMANLIZZETTE MOJICA Consulting Unavailable REQUEST, DR NONE LISTED Primary Care Unavaila ble AYESHA ., DR LO Attending Unavailable AYESHA ., DR LO Attending Unavailable AYESHA ., DR LO Admitting Unavailable REQUEST, DR NONE LISTED Primary Care Unavaila ble AYESHA ., DR LO Consulting Unavailable ZIEBER, DR ASHLEY Bryant Consulting Unavailable SHARP, TYESHA Consulting Unavailable JOSE II, BERTRAM Consulting Unavailable KARASIK ., DR HALE Attending Unavailabl e KARASIK ., DR HALE Admitting Unavailabl e KARASIK ., DR HALE Consulting Unavailabl e REQUEST, DR NONE LISTED Primary Care Unavaila ble ANTELMO CHRISTIANSON Consulting Unavailable KARASIK ., DR HALE Attending Unavailabl e KARASIK ., DR HALE Admitting Unavailabl e KARASIK ., DR HALE Consulting Unavailabl e REQUEST, DR NONE LISTED Primary Care Unavaila ble Unavailable Primary Care Provider UnavailAMY Aguirre Attending Unavailable AYESHA, TERESITA Attending Unavailable MU, Attending Unavailable AYESHA, TERESITA Attending Unavailable MU, Attending Unavailable AYESHA, TERESITA Attending Unavailable Medications Current Medications Medication Drug Class(es) Dates Sig (Normalized) Sig (Original) [id number] 200 actuat albuterol 0.09 mg/actuat metered dose inhaler (1 source) beta2-Adrenergic Agonist albuterol HFA (Ventolin HFA) 90 mcg/act inhaler every 4 (four) hours. 0 Active MV-Min-Fe Fum-FA-DHA (CENTRUM SPECIALIST PO) (1 source) take 1 dose by mouth once in the morning MV-Min-Fe Fum-FA-DHA (CENTRUM SPECIALIST PO) Take 1 each by mouth in the morning. 0 Active Completed/Discontinued Medications Medication Drug Class(es) Dates Sig (Normalized) Sig (Original) polysaccharide iron complex 391 mg oral capsule (1 source) Start: 08-16-2023 End: 08-31-2023 take 1 capsule by mouth once in the morning iron polysaccharides (ProFe) 391.3 (180 Fe) MG capsule Indications: Anemia during in second trimester Take 1 capsule (391.3 mg) by mouth in the morning. 30 capsule 11 08/16/2023 08/31/2023 Discontinued (Side effects) 27-1 MG tablet (1 source) Start: 09-21-2022 End: 08-31-2023 27-1 MG tablet 1 (one) time each day at the same time. 0 09/21/2022 08/31/2023 Discontinued (Therapy completed) FU-Ahu-XF-[place]-3 ( Gummies/DHA & FA) 0.4-32.5 MG chewable tablet (1 source) Start: 03-03-2023 End: 08-31-2023 CI-Uvh-WF-[place]-3 ( Gummies/DHA & FA) 0.4-32.5 MG chewable tablet Problems Active Problems Problem Classification Problem Date [...] 09-15-2022 Episodic Other and delivery including normal (5 sources) Encounter for test, result positive; Translations: [Third trimester ] Onset: 09-13-2022 Episodic Other screening for suspected [...] Test Name Value Interpretation Reference Range Facility Urinalysis macro (dipstick) panel (U)Ordered By: Shantel Rangel on 08-31-2023 Bilirubin, UA Negative Negative - 4(70) +++ mg/dL [facility] Blood, UA Negative Negative - 50 William/mcL [facility] Clarity, UA Clear [facility] Color, UA Yellow [facility] Glucose, UA Negative Negative - 2000(110) ++++ mg/dL [facility] Interpretation and review of laboratory results Abnormal [facility] Ketones, UA Positive Negative - 160(16) ++++ mg/dL [facility] Leukocytes, UA Trace Negative - 500+++ Roma/mcL [facility] Nitrite, UA Negative Negative - Positive [facility] pH, UA 7.5 5 - 9 [facility] e Protein, UA Trace Negative - 1999(20) ++++ mg/dL [facility] Spec Grav, UA 1.020 1 - 1.03 [facility] Urobilinogen, UA 0.2 0.2 - 12 mg/dL [facility] PAP ACOG PANEL 2: 21 to 29on 11-17-2022 . . Normal [facility] Comment on above: Performed By: #### 4 [id number] #### [facility] [address] [place] [address] Dr. Aleah Peres Age Gdln ACOG Testing - Normal [facility] Comment on above: Performed By: #### 4 [id number] #### [facility] [address] [address] [address] Aleah Peres DIAGNOSIS: Comment [facility] Comment on above: Result Comment: NEGA TIVE FOR INTRAEPITHELIAL LESION OR MALIGNANCY. Performed By: #### 4 [id number] #### [facility] [address] [address] [address] Aleah Peres Methodology: Comment [facility] Comment on above: Result Comment: This liquid based ThinPrep(R) pap test was screened with the use of an image guided system. Performed By: #### 4 [id number] #### [facility] [address] [place] [address] Dr. Aleah Peres Note: Comment Normal [facility] Comment on above: Result Comment: The Pap smear is a screening test designed to aid in the detection of premalignant and malignant conditions of the uterine cervix. It is not a diagnostic procedure and should not be used as the sole means of detecting cervical cancer. Both false-positive and false-negative reports do occur. . Performed By: #### 4 [id number] #### [facility] [address] [place] [address] Dr. Aleah Peres Performed by: Comment Normal [facility] Comment on above: Result Comment: Annelise Martinez Language Path Performed By: #### 4 [id number] #### [facility] [address] [place] [address] Dr. Aleah Peres Reflex Criteria: Comment Normal [facility] Comment on above: Result Comment: The HPV DNA reflex criteria were not met with this specimen result therefore, no HPV testing was performed. . Performed By: #### 4 [id number] #### [facility] [address] [place] [address] Dr. Aleah Peres Specimen adequacy: Comment Normal [facility] Comment on above: Result Comment: Sati sfactory for evaluation. Endocervical and/or squamous metaplastic cells (endocervical component) are present. Performed By: #### 4 [id number] #### [facility] [address] [place] [address] Dr. Aleah Peres OCC BLD IMMUNO SCREENon 04-0 OCCULT BLOOD Negative Normal NEGATIVE [facility] Comment on above: Performed By: #### O BSCRN #### [facility] [address] [place] [address] Dr. Aleah Peres SURGICAL PATH REPORTon 10-11 SURGICAL PATH REPORT [facility] Department of Pathology [address] [place] [address] [phone] Name: CAMERON HIGGINS : 2000 [facility] [id number] Number: Gender Female [facility] : n: Admit 22 years Attending ALEXIA BARRETT Age: Provider: Ordering ALEXIA BARRETT Provider: Consulti Surgical Pathology Report ng: ACCESSION: COLLECTED DATE/TIME: RECEIVED DATE/TIME: PATHOLOGIST: [id number] 10/08/2022 12:03 EDT 10/08/2022 12:03 EDT TOM AGUERO MD Final Diagnosis Report for [facility] [place] RETAINED PRODUCTS OF CONCEPTION: - CHORIONIC [...] ald 10/08/2022 Tissue pathology report for: [facility], [address] [place] [id number]; ____ Print 10/11/2022 15:01 EDT Number: Date/Time: [facility] Department of Pathology [address] [place] [id number] Name: CAMERON HIGGINS : 2000 [facility] [id number] Number: Gender Female [facility] : n: Admit 22 years Attending ALEXIA BARRETT Age: Provider: Ordering ALEXIA BARRETT Provider: Consulti Surgical Pathology Report ng: ACCESSION: COLLECTED DATE/TIME: RECEIVED DATE/TIME: PATHOLOGIST: [id number] 10/08/2022 12:03 EDT 10/08/2022 12:03 EDT LACI KHAN, TOM Gross Description PATHOLOGY SERVICES PROVIDED BY [employer] (CLIA #[id number]) in cooperation with [facility] at [address] [place] [address] ( CLIA #[id number]) Codes CPT CODE: 89135 ____ Print 10/11/2022 15:01 EDT Number: Date/Time: Normal [facility] Comment on above: Performed By: #### 9 [id number] #### [facility] Laboratory Services [address] [place] [address] Cfo Controller: Tom Aguero MD URon 10-08-2022 , QUAL Negative Normal NEGATIVE [facility] Comment on above: Performed By: #### P REGU #### [facility] [address] [place] [address] Dr. Aleah Peres US PELVIS AND TRANSVAGon [...] normal IMPRESSION: Subtle heterogeneous hypervascularity posterior fundal endometrial/myometria l junction. This is indeterminate and could represent a small amount of retained products of conception. Serial beta hCG and/or follow-up ultrasound suggested Electronically authenticated by: PIPPA ORTEGA Date: 2022-10-06 14:55 Normal [facility] SURGICAL PATH REPORTon 09-16 SURGICAL PATH REPORT [facility] Department of Pathology [address] [place] [address] Name: ALEXANDRA HIGGINS : 2000 [facility] [id number] Number: Gender Female [facility] : n: Admit 22 years Attending TERESITA HODGE Age: Provider: Ordering TERESITA HODGE Provider: Consulti Surgical Pathology Report ng: ACCESSION: COLLECTED DATE/TIME: RECEIVED DATE/TIME: PATHOLOGIST: [id number] 09/15/2022 12:34 EST 09/15/2022 12:34 HENRY MOREIRA MD, LUIS ERAZO Final Diagnosis Report for [facility] [place] PRODUCTS OF CONCEPTION, DILATION AND CURETTAGE: - CHORIONIC VILLI ARE PRESENT; NO SIGNIFICANT ATYPIA IS OBSERVED. - BENIGN MATERIAL DECIDUA PRESENT. - NO PARTS ARE IDENTIFIED. LUIS MOREIRA PATHOLOGIST (Electronic Signature) Date Verified 09/16/2022 LN Clinical Data PRE-OP DIAGNOSIS: Not specified POST-OP DIAGNOSIS: Missed PROCEDURES: D and C with suction SPECIMEN: Products of conception / career development counselor Gross Description Labeled products of conception. Received in formalin in a suction sock are multiple irregular segments of medrano pink to red black soft tissue. The individual segments have a variable granular to partially smooth glistening membranous character. The specimen in total aggregate measures 12.5 x 7.5 x 4.0 cm. There are no grossly identifiable parts. Machine [employer] Rebuilder sections are submitted in three cassettes. MP/ald 09/15/2022 ____ Print 09/16/2022 14:53 EST Number: Date/Time: [facility] Department of Pathology [address] [place] [id number] Name: ALEXANDRA HIGGINS : 2000 [facility] [id number] Number: [facility] : n: Admit 22 years Attending TERESITA HODGE Age: Provider: Ordering TERESITA HODGE Provider: Consulti Surgical Pathology Report ng: ACCESSION: COLLECTED DATE/TIME: RECEIVED DATE/TIME: PATHOLOGIST: [id number] 09/15/2022 12:34 EST 09/15/2022 12:34 EST LILLIE KHAN, LUIS ERAZO Gross Description Tissue pathology report for: [facility], [address] [place] [address]; PATHOLOGY SERVICES PROVIDED BY [employer] (CLIA #[id number]) in cooperation with [facility] at [address] [place] [address] ( CLIA #[id number]) Codes CPT CODE: 54081 ____ Print 09/16/2022 14:53 EST Number: Date/Time: Normal [facility] Comment on above: Performed By: #### [id number] #### [facility] Services [address] [place], [place] [id number] Cfo Controller: Tom Aguero MD CBC AUTO DIFFon 09-15-2022 BASO # 0.0 103/ul Normal 0.0-0.1 [facility] Comment on above: Performed By: #### C BC #### [facility] [address] [address] [address] Aleah Peres Basophils/100 WBC (Bld) 0.4 % Normal 0.2-2.0 [facility] Comment on above: Performed By: #### C BC #### [facility] [address] [address] [address] Aleah Peres EO # 0.1 103/ul Normal 0.0-0.7 [facility] Comment on above: Performed By: #### C BC #### [facility] [address] [place] [address] Dr. Aleah Peres Eosinophils/100 WBC (Bld) 1.3 % Normal 0.9-7.0 [facility] Comment on above: Performed By: #### C BC #### [facility] [address] [place] [address] Dr. Aleah Peres Erythrocyte distribution width (RBC) [Ratio] 13.8 % Normal 11.0-15.0 [facility] Comment on above: Performed By: #### C BC #### [facility] [address] [place] [address] Dr. Aleah Peres Hematocrit (Bld) [Volume fraction] 35.5 % Critically low 36.0-48.0 [facility] Comment on above: Performed By: #### C BC #### [facility] [address] [place] [address] Dr. Aleah Peres Hemoglobin (Bld) [Mass/Vol] 11.6 g/dL Critically low 12.0-16.0 [facility] Comment on above: Performed By: #### C BC #### [facility] [address] [place] [address] Dr. Aleah Peres IG # 0.03 10e3/ul Normal 0.00-0.03 [facility] Comment on above: Performed By: #### C BC #### [facility] [address] [place] [address] Dr. Aleah Peres IG % 0.4 % Normal 0.0-0.5 [facility] Comment on above: Performed By: #### C BC #### [facility] [address] [place] [address] Dr. Aleah Peres LYMPH # 2.8 103/ul Normal 1.2-3.8 [facility] Comment on above: Performed By: #### C BC #### [facility] [address] [place] [address] Dr. Aleah Peres Lymphocytes/100 WBC (Bld) 32.9 % Normal 20.5-60.0 [facility] Comment on above: Performed By: #### C BC #### [facility] [address] [place] [address] Dr. Aleah Peres MANUAL DIFF REQ NO Normal [facility] Comment on above: Performed By: #### C BC #### [facility] [address] [place] [address] Dr. Aleah Peres MCH (RBC) [Entitic mass] 26.9 pg Normal 26.7-34.0 [facility] Comment on above: Performed By: #### C BC #### [facility] [address] [place] [address] Dr. Aleah Peres MCHC (RBC) [Mass/Vol] 32.7 g/dL Normal 29.9-35.2 [facility] Comment on above: Performed By: #### C BC #### [facility] [address] [place] [address] Dr. Aleah Peres MCV (RBC) [Entitic vol] 82.4 fL Normal 81.0-99.0 [facility] Comment on above: Performed By: #### C BC #### [facility] [address] [place] [address] Dr. Aleah Peres MONO # 0.7 103/ul Normal 0.3-0.8 [facility] Comment on above: Performed By: #### C BC #### [facility] [address] [place] [address] Dr. Aleah Peres Monocytes/100 WBC (Bld) 8.6 % Normal 1.7-12.0 [facility] Comment on above: Performed By: #### C BC #### [facility] [address] [place] [address] Dr. Aleah Peres NEUT # 4.8 103/ul Normal 1.4-6.5 [facility] Comment on above: Performed By: #### C BC #### [facility] [address] [place] [address] Dr. Aleah Peres Neutrophils/100 WBC (Bld) 56.4 % Normal 43.0-75.0 [facility] Comment on above: Performed By: #### C BC #### [facility] [address] [place] [address] Dr. Aleah Peres Platelet mean volume (Bld) [Entitic vol] 9.9 fL Normal 9.5-13.5 [facility] Comment on above: Performed By: #### C BC #### [facility] [address] [place] [address] Dr. Aleah Peres PLT 316 103/ul Normal 150-450 [facility] Comment on above: Performed By: #### C BC #### [facility] [address] [place] [address] Dr. Aleah Peres RBC 4.31 106/ul Normal 4.20-5.40 [facility] Comment on above: Performed By: #### C BC #### [facility] [address] [place] [address] Dr. Aleah Peres WBC 8.4 103/ul Normal 4.0-11.0 [facility] Comment on above: Performed By: #### C BC #### [facility] [address] [place] [address] Dr. Aleah Peres PREG QUANT HCGon 09-15-2022 HCG QUANT 89330 mIU/mL Normal [facility] Comment on above: Performed By: #### P REGQNT #### [facility] [address] [place] [address] Dr. Aleah Peres HCG RANGE SEE BELOW Normal [facility] Comment on above: Result Comment: 5-50 0.2-1 WEEK 50-500 1-2 WEEKS 100-5,000 2-3 WEEKS 500-10,000 3-4 WEEKS 1,000-50,000 4-5 WEEKS 10,000-100,000 5-6 WEEKS 15,000-200,000 6-8 WEEKS 10,000-100,000 2-3 MONTHS Performed By: #### P REGQNT #### [facility] [address] [place], [place] [address] Dr. Aleah Peres TYPE AND SCREENon 09-15-2022 TYPE AND SCREEN Negative Normal [facility] Comment on above: Performed By: #### P REGQNT #### [facility] [address] [place], [place] [address] Dr. Aleah Peres US PELVISon 09-15-2022 US PELVIS EXAMINATION: US PELVIS HISTORY: Spontaneous COMPARISON: No relevant comparison available. TECHNIQUE: Transabdominal and transvaginal sonographic examination. FINDINGS: UTERUS: Small amount of fluid within endometrial cavity. No visible retained products of conception. IMPRESSION: 1. No appreciable retained products of conception within uterine cavity. Electronically authenticated by: ASHLEY NOEL Date: 2022-09-15 15:42 Normal [facility] US PREG TVon 09-13-2022 US PREG TV [...] Right ovary was not identified. Normal [facility] CBC AUTO DIFFon 08-16-2022 BASO # 0.0 103/ul Normal 0.0-0.1 [facility] Comment on above: Performed By: #### C BC #### [facility] [address] [address] [address] Aleah Peres Basophils/100 WBC (Bld) 0.4 % Normal 0.2-2.0 [facility] Comment on above: Performed By: #### C BC #### [facility] [address] [address] [address] Aleah Peres EO # 0.1 103/ul Normal 0.0-0.7 [facility] Comment on above: Performed By: #### C BC #### [facility] [address] [address] [address] Aleah Peres Eosinophils/100 WBC (Bld) 1.4 % Normal 0.9-7.0 [facility] Comment on above: Performed By: #### C BC #### [facility] [address] [address] [address] Aleah Peres Erythrocyte distribution width (RBC) [Ratio] 13.6 % Normal 11.0-15.0 [facility] Comment on above: Performed By: #### C BC #### [facility] [address] [address] [address] Aleah Peres Hematocrit (Bld) [Volume fraction] 32.4 % Critically low 36.0-48.0 [facility] Comment on above: Performed By: #### C BC #### [facility] [address] [address] [address] Aleah Peres Hemoglobin (Bld) [Mass/Vol] 11.2 g/dL Critically low 12.0-16.0 [facility] Comment on above: Performed By: #### C BC #### [facility] [address] [address] [address] Aleah Peres IG # 0.02 10e3/ul Normal 0.00-0.03 [facility] Comment on above: Performed By: #### C BC #### [facility] [address] [place] [address] Dr. Aleah Peres IG % 0.3 % Normal 0.0-0.5 [facility] Comment on above: Performed By: #### C BC #### [facility] [address] [place] [address] Dr. Aleah Peres LYMPH # 2.4 103/ul Normal 1.2-3.8 [facility] Comment on above: Performed By: #### C BC #### [facility] [address] [place] [address] Dr. Aleah Peres Lymphocytes/100 WBC (Bld) 32.3 % Normal 20.5-60.0 [facility] Comment on above: Performed By: #### C BC #### [facility] [address] [place] [address] Dr. Alaeh Peres MANUAL DIFF REQ NO Normal [facility] Comment on above: Performed By: #### C BC #### [facility] [address] [place] [address] Dr. Aleah Peres MCH (RBC) [Entitic mass] 26.9 pg Normal 26.7-34.0 [facility] Comment on above: Performed By: #### C BC #### [facility] [address] [place] [address] Dr. Aleah Peres MCHC (RBC) [Mass/Vol] 34.6 g/dL Normal 29.9-35.2 [facility] Comment on above: Performed By: #### C BC #### [facility] [address] [place] [address] Dr. Aleah Peres MCV (RBC) [Entitic vol] 77.9 fL Critically low 81.0-99.0 [facility] Comment on above: Performed By: #### C BC #### [facility] [address] [place] [address] Dr. Aleah Peres MONO # 0.7 103/ul Normal 0.3-0.8 [facility] Comment on above: Performed By: #### C BC #### [facility] [address] [place] [address] Dr. Aleah Peres Monocytes/100 WBC (Bld) 9.1 % Normal 1.7-12.0 [facility] Comment on above: Performed By: #### C BC #### [facility] [address] [place] [address] Dr. Aleah Peres NEUT # 4.1 103/ul Normal 1.4-6.5 [facility] Comment on above: Performed By: #### C BC #### [facility] [address] [place] [address] Dr. Aleah Peres Neutrophils/100 WBC (Bld) 56.5 % Normal 43.0-75.0 [facility] Comment on above: Performed By: #### C BC #### [facility] [address] [place] [address] Dr. Aleah Peres Platelet mean volume (Bld) [Entitic vol] 9.4 fL Critically low 9.5-13.5 [facility] Comment on above: Performed By: #### C BC #### [facility] [address] [place] [address] Dr. Aleah Peres PLT 303 103/ul Normal 150-450 [facility] Comment on above: Performed By: #### C BC #### [facility] [address] [place] [address] Dr. Aleah Peres RBC 4.16 106/ul Critically low 4.20-5.40 [facility] Comment on above: Performed By: #### C BC #### [facility] [address] [place] [address] Dr. Aleah Peres WBC 7.3 103/ul Normal 4.0-11.0 [facility] Comment on above: Performed By: #### C BC #### [facility] [address] [place] [address] Dr. Aleah Peres ER URINE PROFILEon 3 Bilirubin Ql (U) Negative Normal NEGATIVE [facility] Comment on above: Performed By: #### E RUR #### [facility] [address] [place] [address] Dr. Aleah Peres Clarity (U) CLEAR Normal CLEAR [facility] Comment on above: Performed By: #### E RUR #### [facility] [address] [place] [address] Dr. Aleah Peres Color (U) YELLOW Normal YELLOW [facility] Comment on above: Performed By: #### E RUR #### [facility] [address] [place] [address] Dr. Aleah Peres ERUAHJordan A micrscopic examination will be performed if indicated. Normal [facility] Comment on above: Performed By: #### E RUR #### [facility] [address] [place] [address] Dr. Aleah Peres Glucose Ql (U) Negative Normal NEGATIVE [facility] Comment on above: Performed By: #### E RUR #### [facility] [address] [place] [address] Dr. Aleah Peres Hemoglobin Ql (U) Negative Normal NEGATIVE [facility] Comment on above: Performed By: #### E RUR #### [facility] [address] [place] [address] Dr. Aleah Peres Ketones Ql (U) Negative Normal NEGATIVE [facility] Comment on above: Performed By: #### E RUR #### [facility] [address] [place] [address] Dr. Aleah Peres LEUKOCYTES Negative Normal NEGATIVE [facility] Comment on above: Performed By: #### E RUR #### [facility] [address] [place] [address] Dr. Aleah Peres Nitrite Ql (U) Negative Normal NEGATIVE [facility] Comment on above: Performed By: #### E RUR #### [facility] [address] [place] [address] Dr. Aleah Peres pH (U) 6.0 [pH] Normal 5-9 [facility] Comment on above: Performed By: #### E RUR #### [facility] [address] [place] [address] Dr. Aleah Peres SPEC GRAVITY 1.020 Normal 1.005-<=1.025 [facility] Comment on above: Performed By: #### E RUR #### [facility] [address] [place] [address] Dr. Aleah Peres UA PROTEIN Negative Normal NEGATIVE/ TRACE [facility] Comment on above: Performed By: #### E RUR #### [facility] [address] [place] [address] Dr. Aleah Peres UR MICRO IND NOT INDICATED Normal [facility] Comment on above: Performed By: #### E RUR #### [facility] [address] [place] [address] Dr. Aleah Peres Urobilinogen Qn (U) 0.2 {Edmund'U}/dL Normal 0.2 - 1. 0 [facility] Comment on above: Performed By: #### E RUR #### [facility] [address] [place] [address] Dr. Aleah Peres PROF 14(COMP METB)on 023 Albumin [Mass/Vol] 3.0 g/dL Critically low 3.4-5.0 [facility] Comment on above: Performed By: #### C MP #### [facility] [address] [place] [address] Dr. Aleah Peres Albumin/Globulin [Mass ratio] 0.8 {ratio} Normal [facility] Comment on above: Performed By: #### C MP #### [facility] [address] [place] [address] Dr. Aleah Peres ALP [Catalytic activity/Vol] 52 U/L Normal 46-116 [facility] Comment on above: Performed By: #### C MP #### [facility] [address] [place] [address] Dr. Aleah Peres ALT [Catalytic activity/Vol] 15 U/L Normal 14-59 [facility] Comment on above: Performed By: #### C MP #### [facility] [address] [place] [address] Dr. Aleah Peres Anion gap [Moles/Vol] 10.2 mmol/L Normal [facility] Comment on above: Performed By: #### C MP #### [facility] [address] [address] [address] Aleah Peres AST [Catalytic activity/Vol] 13 U/L Critically low 15-37 [facility] Comment on above: Performed By: #### C MP #### [facility] [address] [address] [address] Aleah Peres Bilirubin [Mass/Vol] 0.2 mg/dL Normal 0.2-1.0 [facility] Comment on above: Performed By: #### C MP #### [facility] [address] [address] [address] Aleah Peres Calcium [Mass/Vol] 9.1 mg/dL Normal 8.5-10.1 [facility] Comment on above: Performed By: #### C MP #### [facility] [address] [address] [address] Aleah Peres Chloride [Moles/Vol] 100 mmol/L Normal 98-107 [facility] Comment on above: Performed By: #### C MP #### [facility] [address] [address] [address] Aleah Peres CO2 [Moles/Vol] 28.8 mmol/L Normal 21.0-32.0 [facility] Comment on above: Performed By: #### C MP #### [facility] [address] [address] [address] Aleah Peres Creatinine [Mass/Vol] 0.56 mg/dL Normal 0.55-1.02 [facility] Comment on above: Performed By: #### C MP #### [facility] [address] [address] [address] Aleah Peres EGFR-AF TURKMEN >60 Normal >=60 [facility] Comment on above: Performed By: #### C MP #### [facility] [address] [address] [address] Aleah Peres EGFR-NON AF TURKMEN >60 Normal >=60 [facility] Comment on above: Performed By: #### C MP #### [facility] [address] [address] [address] Aleah Peres Globulin (S) [Mass/Vol] 3.9 g/dL Normal [facility] Comment on above: Performed By: #### C MP #### [facility] [address] [place] [address] Dr. Aleah Peres Glucose [Mass/Vol] 90 mg/dL Normal 74-106 [facility] Comment on above: Performed By: #### C MP #### [facility] [address] [address] [address] Aleah Peres Potassium [Moles/Vol] 4.0 mmol/L Normal 3.5-5.1 [facility] Comment on above: Performed By: #### C MP #### [facility] [address] [place] [address] Dr. Aleah Peres Protein [Mass/Vol] 6.9 g/dL Normal 6.4-8.2 [facility] Comment on above: Performed By: #### C MP #### [facility] [address] [place] [address] Dr. Aleah Peres Sodium [Moles/Vol] 135 mmol/L Critically low 136-145 [facility] Comment on above: Performed By: #### C MP #### [facility] [address] [place] [address] Dr. Aleah Peres Urea nitrogen [Mass/Vol] 4.0 mg/dL Critically low 7.0-18.0 [facility] Comment on above: Performed By: #### C MP #### [facility] [address] [place] [address] Dr. Aleah Peres Urea nitrogen/Creatinine [Mass ratio] 7.1 mg/mg Normal [facility] Comment on above: Performed By: #### C MP #### [facility] [address] [place] [address] Dr. Aleah Peres PAP ACOG PANEL 2: 21 to 29on 08-02-2022 . . Normal [facility] Comment on above: Result Comment: Perf ormed at: WB Performed By: #### [id number] #### [facility] [address] [address] [address] Aleah Peres Age Gdln ACOG Testing 21-29 Normal [facility] Comment on above: Performed By: #### [id number] #### [facility] [address] [address] [address] Aleah Peres DIAGNOSIS: Comment Abnormal [facility] Comment on above: Result Comment: EPIT HELIAL CELL ABNORMALITY. LOW GRADE SQUAMOUS INTRAEPITHELIAL LESION (LSIL). Performed at: WB Performed By: #### [id number] #### [facility] [address] [place] [address] Dr. Aleah Peres Electronically signed by: Comment Normal [facility] Comment on above: Result Comment: Amena Arciniega MD, Pathologist Performed at: WB Performed By: #### [id number] #### [facility] [address] [place] [address] Dr. Aleah Peres Methodology: Comment Normal [facility] Comment on above: Result Comment: This liquid based ThinPrep(R) pap test was screened with the use of an image guided system. Performed at: WB Performed By: #### [id number] #### [facility] [address] [place] [address] Dr. Aleah Peres Note: Comment Normal [facility] Comment on above: Result Comment: The Pap smear is a screening test designed to aid in the detection of premalignant and malignant conditions of the uterine cervix. It is not a diagnostic procedure and should not be used as the sole means of detecting cervical cancer. Both false-positive and false-negative reports do occur. . Performed at: WB Performed By: #### [id number] #### [facility] [address] [place] [address] Dr. Aleah Peres Pathologist Provided ICD10 Comment Normal [facility] Comment on above: Result Comment: [id number] Performed at: WB Performed By: #### [id number] #### [facility] [address] [place] [address] Dr. Aleah Peres Performed by: Comment Normal [facility] Comment on above: Result Comment: Caitlyn Crenshaw, Language Path (ASCP) Performed at: BA Performed By: #### [id number] #### [facility] [address] [address] [address] Aleah Peres Recommendation: Comment Abnormal [facility] Comment on above: Result Comment: Sugg est follow up as clinically appropriate. Performed at: WB Performed By: #### [id number] #### [facility] [address] [address] [address] Aleah Peres Reflex Criteria: Comment Normal [facility] Comment on above: Result Comment: The HPV DNA reflex criteria were not met with this specimen result therefore, no HPV testing was performed. . Performed at: WB Performed By: #### [id number] #### [facility] [address] [address] [address] Aleah Peres Specimen adequacy: Comment Normal [facility] Comment on above: Result Comment: Sati sfactory for evaluation. Endocervical and/or squamous metaplastic cells (endocervical component) are present. Performed at: WB Performed By: #### [id number] #### [facility] [address] [address] [address] Aleah [facility] SARS-CoV-2 (COVID-19) RNA MARY ELLEN+probe Ql (Unsp spec) Not detected Normal NOT DETECTED [facility] Comment on above: Result Comment: When [...] for this test is supported by the Guest Relations Executive of Health and Human Service's declaration that [...] used). Performed By: #### P REGQNT #### [facility] [address] [place] [address] Dr. Aleah Peres Vital Signs Date Time Vital Sign Value Performing Clinician Facfidel lity 08-31-2023 13:43-0500 Body mass index (BMI) [Ratio] 33.2 kg/m2 Teresita Ayesha DO Work Phone: [facility] 08-31-2023 13:43-0500 Body weight 86.36 kg Teresita Ayesha DO Work Phone: [facility] 08-31-2023 13:43-0500 Diastolic blood pressure 70 mm[Hg] Teresita Ayesha DO Work Phone: [facility] 08-31-2023 13:43-0500 Systolic blood pressure 114 mm[Hg] Teresita Ayesha DO Work Phone: [facility] Healthcare Encounters Encounter Date Encounter Type Care Provider Facility Start: 09-28-2023 End: 09-28-2023 ambulatory TERESITA AYESHA Not Available Start: 09-14-2023 End: 09-14-2023 ambulatory [facility] Not Available Start: 08-31-2023 End: 08-31-2023 ambulatory TERESITA AYESHA Not Available Start: 08-31-2023 End: 08-31-2023 Office outpatient visit 15 minutes Teresita Ayesha DO Work Phone: [facility] OB Comment on above: Third trimester preg hanh Start: 08-10-2023 End: 08-10-2023 ambulatory AMY DOBBINS Not Available Start: 07-13-2023 End: 07-13-2023 ambulatory TERESITA AYESHA Not Available Start: 06-13-2023 End: 06-13-2023 ambulatory AMY DOBBINS Not Available Start: 11-10-2022 End: 11-10-[address] ALEXIA BARRETT . Facility: Start: 10-22-2022 End: 10-23-2022 ambulatory NATASHA CAMARA . Facility: Start: 10-08-2022 End: 10-09-2022 ambulatory ALEXIA BARRETT Facility:[facility] Start: 10-08-2022 End: 10-08-[address] ALEXIA BARRETT . Facility: Start: 10-06-2022 End: 10-07-[address] ALEXIA BARRETT . Facility: Start: 09-17-2022 Encounter for other preprocedural examination DR TERESITA HODGE . [facility] Start: 09-15-2022 End: 09-16-2022 ambulatory TERESITA HODGE Facility:[facility] Start: 09-15-2022 End: 09-15-[address] TERESITA HODGE . Facility: Start: 09-14-2022 End: 09-15-[address] TERESITA HODGE . Facility: Start: 09-14-2022 End: 09-15-2022 Encounter for other preprocedural examination DR TERESITA HODGE . Facility: Start: 09-13-2022 End: 09-14-[address] ALEXIA BARRETT . Facility: Start: 08-16-2022 End: 08-16-2022 ambulatory STEVEN ARELLANO Facility: Start: 07-21-2022 End: 07-21-[address] ALEXIA BARRETT . Facility: Start: 06-07-2022 End: 06-08-[address] MAGDA MARTINEZ Facility: Procedures Date Procedure Procedure Detail Performing Clinician Start: 08-31-2023 Urnls dip stick/tabl et rgnt non-auto w/o micrscp Teresita Hodge DO Work Phone: Plan of Treatment Date Care Activity Detail Author Start: 09-14-2023 End: 09-14-2023 Patient encounter procedure 09/14/2023 3:50 PM EST Routine [facility] [address] [place] [id number] Amy Dobbins PA [address] [place] [address] [facility] Payers Date Payer Category Payer Medicaid [id number] 2022 Medicaid [place] [employer] [id number] 2022-Present [address] [place] [address] [id number] 1999 Unknown [id number] [id number] 1999 Unknown [id number] 2.16.840.1.921937.3.579.2.593 1999 Unknown [id number] 2.16.840.1.612330.3.579.2.593 1999 Unknown [id number] 2.16.840.1.410632.3.579.2.593 1999 Unknown [id number] 2.16.840.1.590662.3.579.2.593 1999 Unknown [id number] 2.16.840.1.347552.3.579.2.593 1999 Unknown [id number] 2.16.840.1.955850.3.579.2.593 1999 Unknown [id number] 2.16.840.1.042109.3.579.2.593 1999 Unknown [id number] 2.16.840.1.525754.3.579.2.593 1999 Unknown [id number] 2.16.840.1.196895.3.579.2.593 1999 Unknown [id number] 2.16.840.1.673281.3.579.2.1259 1999 Unknown [id number] 2.16.840.1.498472.3.579.2.1259 1999 Unknown [id number] 2.16.840.1.686942.3.579.2.1259 1999 Unknown [id number] 2.16.840.1.361480.3.579.2.1259 1999 Unknown [id number] 2.16.840.1.612870.3.579.2.1259 1999 Unknown [id number] 2.16.840.1.696110.3.579.2.1259 1959 Unknown [id number] 1959 Unknown [id number] Social History Date Type Detail Facility Start: 04-18-2023 Tobacco smoking stat [facility] Never smoked tobacco [facility] Start: 08-31-2023 Alcohol intake Lifetime non-d enio (finding) [facility] Start: 06-13-2023 History of Social function [facility] Start: 06-13-2023 Tobacco use panel [facility] Start: 04-18-2023 Alcohol Comment caffeine: none [facility] Start: 02-17-2023 [facility] Start: 2000 Sex Assigned At Not on file [facility] History of Present illness Narrative 08-31-2023 Sharon Hare LPN - 08/31/2023 1:40 PM EST Note Date & Type Note Facility 08-31-2023 History of Presen t illness Narrative Reason for Appointment: Patient ID: Alexandra Higgins is a 23 y.o. female who presents for Routine Visit Patient presents today for Return OB appointment. Current Medications: has a current medication list which includes the following prescription(s): albuterol hfa and mv-min-fe fum-fa-dha. Medical History: Active Ambulatory Problems Diagnosis Date Noted No Active Ambulatory Problems Resolved Ambulatory Problems Diagnosis Date Noted No Resolved Ambulatory Problems Past Medical History: Diagnosis Date Amenorrhea LGSIL on Pap smear of cervix 07/21/2022 Family History Problem Relation Name Age of Onset Hypertension Father Hyperlipidemia Father Hyperlipidemia Maternal Grandfather Hypertension Maternal Grandfather Social History Tobacco Use Smoking status: Never Smokeless tobacco: Not on file Substance Use Topics Alcohol use: Never Comment: caffeine: none Drug use: Never Past Surgical History: Procedure Laterality Date BREAST BIOPSY Left 2014 DILATION AND CURETTAGE 09/15/2022 DILATION AND CURETTAGE 10/08/2022 No Known Allergies Review of Systems: Review of Systems Constitutional: Negative. HENT: Negative. Eyes: Negative. Respiratory: Negative. Cardiovascular: Negative. Gastrointestinal: Negative. Genitourinary: Negative. Musculoskeletal: Negative. Skin: Negative. Neurological: Negative. All other systems reviewed and are negative. Hematological: Negative. Endocrine: Negative. Allergic/Immunologic: Negative. Objective Physical Exam Constitutional: Appearance: Normal appearance. She is well-developed. Cardiovascular: Rate and Rhythm: Normal rate and regular rhythm. Pulmonary: Effort: Pulmonary effort is normal. Breath sounds: Normal breath sounds. Abdominal: General: Bowel sounds are normal. There is no distension. Palpations: Abdomen is soft. Tenderness: There is no abdominal tenderness. There is no guarding or rebound. Musculoskeletal: General: No swelling. Normal range of motion. Right lower leg: No edema. Left lower leg: No edema. Neurological: Mental Status: She is alert and oriented to person, place, and time. Skin: General: Skin is warm and dry. Psychiatric: Mood and Affect: Mood normal. Behavior: Behavior normal. Vitals and nursing note reviewed. Exam conducted with a inside sales executive present. Vitals: Estimated body mass index is 33.2 kg/m as calculated from the following: Height as of 11/10/22: 5' 3.5 . Weight as of this encounter: 190 lb 6.4 oz. BP: 114/70 Patient's last menstrual period was 02/03/2023. Assessment/Plan Encounter Diagnosis Name Primary? Third trimester Patient presents today for a routine obstetrics appointment. Patient is currently 29w6d . Patient states she is doing well but has complaints of being tired due to current . Patient has verbalizes frequent movement. labor precautions was discussed. Follow Up: Patient is to return to office in 2 week for routine OB appointment. Documented by Sharon Hare LPN on behalf of: Teresita Hodge DO documented in this encounter [facility] Clinical Note 09-15-2022 Note Date & Type [...] by: ASHLEY NOEL Date: 2022-09-15 07:41 [facility] Clinical Note 09-15-2022 Note Date & Type Note Facility 09-15-2022 Note OPERATIVE NOTE OPERATION DATE: 09/15/2022 PROCEDURE: Suction D AND C. PREOPERATIVE DIAGNOSIS: First trimester missed at 10 weeks. POSTOPERATIVE DIAGNOSIS: First trimester missed at 10 weeks. ANESTHESIA: General. SURGEON: Teresita Hodge D.O. PHOTOGRAPHIC ENGINEER: None. FINDINGS: Products of conception. SPECIMEN: Products [...] Recovery Room in stable condition. ?? [facility] Evaluation note Note Date & Type Note Facility Evaluation note Diagnosis Third trimester state, incidental documented in this encounter [facility] Summary Purpose Family History No Family History Records FoundNo Family History Records FoundNo Family History Records Found Advance Directives No Advanced Directives Records FoundNo Advanced Directives Records FoundNo Advanced Directives Records Found Additional Source Comments INFORMATION SOURCE (unrecogn ized section and content) DATE CREATED AUTHOR 10/12/2022 [facility] DATE CREATED AUTHOR AUTHOR'S ORGANIZ ATION 12/08/2022 [facility] DATE CREATED AUTHOR AUTHOR'S ORGANIZ ATION 09/29/2023 [facility] Reason for Visit (unrecogniz ed section and content) Reason Comments Routine Visit FOR RECORDS PERTAINING TO PATIENTS WHO ARE [...] BE BASED ON THE PRIMARY CLINICAL RECORDS. [facility] [employer] [facility]. provides no warranty or guarantee of the accuracy or completeness of information in this document.
== END 2023-09-30 08:57 | disposition home or self-care (01) ==
LOC: NOMS 08:57
PROVIDERS: Visit Provider Obstetrics & Gynecology
DX: O36.63X0 Maternal care for excessive fetal growth, third trimester, not applicable or unspecified (principal); O26.893 Other specified pregnancy related conditions, third trimester; N89.8 Other specified noninflammatory disorders of vagina; Z3A.34 34 weeks gestation of pregnancy
CPT/HCPCS: 76816

== ENCOUNTER 2023-10-05 16:46 | Observation (INO) | payer MEDICAID, SELFPAY ==
[2023-10-05 17:03] VITALS: BP 131/79; PULSE 109
[2023-10-05 17:33] LABS: Bilirubin Urine NEGATIVE (NEGATIVE); Blood Urine NEGATIVE (NEGATIVE); Clarity Urine CLEAR (CLEAR); Color Urine LT. YELLOW (YELLOW); Glucose Urine UA NEGATIVE (NEGATIVE); Ketones Urine TRACE mg/dL (NEGATIVE); Leukocyte Esterase Urine NEGATIVE (NEGATIVE); Nitrite Urine NEGATIVE (NEGATIVE); Protein Urine NEGATIVE (NEG/TRACE); Specific Gravity Urine >=1.030 (1.005-1.025); Urine Microscopic Indicated NO; Urobilinogen Urine 0.2 EU/dL (0.2-1.0)
[2023-10-05 18:00] LABS: Amnisure NEGATIVE (NEGATIVE)
== END 2023-10-05 18:10 | disposition home or self-care (01) ==
PROVIDERS: Admitting Provider Obstetrics & Gynecology; Visit Provider Obstetrics & Gynecology
DX: O26.893 Other specified pregnancy related conditions, third trimester (principal); M54.9 Dorsalgia, unspecified; R10.9 Unspecified abdominal pain; Z3A.34 34 weeks gestation of pregnancy
CPT/HCPCS: 59025; 81003; 84112; G0378; G0379

== ENCOUNTER 2023-10-12 21:02 | Outpatient (REF) | payer MEDICAID, SELFPAY ==
--- OUTSIDE RECORDS SUMMARY | 2023-10-12 21:07 | XMS_ITS | CCD ---
Author Organization [facility] Care Team Providers Care Electronic Scale Subassembler Name Role Phone ALEXIA BARRETT Attending Unavailable AYESHATERESITA Attending Unavailable KARASIK ., DR HALE Attending Unavailabl e KARASIK ., DR HALE Admitting Unavailabl e KARASIK ., DR HALE Consulting Unavailabl e REQUEST, DR NONE LISTED Primary Care Unavaila ble KARASIK ., DR HALE Consulting Unavailabl e KARASIK ., DR HALE Attending Unavailabl e KARASIK ., DR HALE Admitting Unavailabl e REQUEST, DR NONE LISTED Primary Care Unavaila ble Alexander, [...] Admitting Unavailable EILEEN, STEVEN Consulting Unavailable REQUEST, DR NONE LISTED Primary Care Unavaila ble HOA ., NATASHA Attending Unavailable HOA ., NATASHA Admitting Unavailable HOA ., NATASHA Consulting Unavailable REQUEST, NONE LISTED Primary Care Unavaila ble AYESHA ., DR LO Admitting Unavailable LIZZETTE HICKMAN Consulting Unavailable REQUEST, DR NONE LISTED Primary Care Unavaila ble AYESHA ., DR LO Attending Unavailable AYESHA ., DR LO Attending Unavailable AYESHA ., DR LO Admitting Unavailable REQUEST, DR NONE LISTED Primary Care Unavaila ble AYESHA ., DR LO Consulting Unavailable ZIEBER, DR ASHLEY Bryant Consulting Unavailable SHARPTYESHA Consulting Unavailable JOSE II, BERTRAM Consulting Unavailable KARASIK ., DR HALE Attending Unavailabl e KARASIK ., DR HALE Admitting Unavailabl e NENA ., DR HALE Consulting Unavailabl e REQUEST, [...] Drug Class(es) Dates Sig (Normalized) Sig (Original) [id number] 200 actuat albuterol 0.09 mg/actuat metered dose [...] time. 0 09/21/2022 08/31/2023 Discontinued (Therapy completed) DP-Wtg-VX-[place]-3 ( Gummies/DHA & FA) 0.4-32.5 MG chewable tablet (1 source) Start: 03-03-2023 End: 08-31-2023 QC-Sgv-KU-[place]-3 ( Gummies/DHA & FA) 0.4-32.5 MG chewable [...] UA Negative Negative - 4(70) +++ mg/dL [facility] Blood, UA Negative Negative - 50 William/mcL [facility] Clarity, UA Clear [facility] Healthne re Color, UA Yellow [facility] Healthcar e Glucose, UA Negative Negative - 2000(110) ++++ mg/dL [facility] Interpretation and review of laboratory results Abnormal [facility] Ketones, UA Positive Negative - 160(16) ++++ mg/dL [facility] Leukocytes, UA Trace Negative - 500+++ Roma/mcL [facility] Nitrite, UA Negative Negative - Positive [facility] pH, UA 7.5 5 - 9 [facility] e Protein, UA Trace Negative - 2000(20) ++++ mg/dL [facility] Spec Grav, UA 1.020 1 - 1.03 [facility] Urobilinogen, UA 0.2 0.2 - 12 mg/dL [facility] PAP ACOG PANEL 2: 21 to 29on 11-17-2022 . . Normal [facility] Comment on above: Performed By: #### [id number] #### [facility] [address] [place] [address] Dr. Aleah Peres Age Gdln ACOG Testing 21-29 [facility] Comment on above: Performed By: #### 4 [id number] #### [facility] [address] [address] [address] Aleah Peres DIAGNOSIS: Comment [facility] Comment on above: Result Comment: NEGA TIVE FOR INTRAEPITHELIAL LESION OR MALIGNANCY. Performed By: #### 4 [id number] #### [facility] [address] [address] [address] Aleah Peres Methodology: Comment [facility] Comment on above: Result Comment: This liquid based ThinPrep(R) pap test was screened with the use of an image guided system. Performed By: #### 4 [id number] #### [facility] [address] [address] [address] Aleah Peres Note: Comment Normal [facility] Comment on above: Result Comment: The Pap smear is a screening test designed to aid in the detection of premalignant and malignant conditions of the uterine cervix. It is not a diagnostic procedure and should not be used as the sole means of detecting cervical cancer. Both false-positive and false-negative reports do occur. . Performed By: #### 4 [id number] #### [facility] [address] [place] [address] Dr. Aleah Peres Performed by: Comment Normal [facility] Comment on above: Result Comment: Annelise Martinez, Credit Collection Associate Performed By: #### 4 [id number] #### [facility] [address] [place] [address] Dr. Alaeh Peres Reflex Criteria: Comment Normal [facility] Comment on above: Result Comment: The HPV DNA reflex criteria were not met with this specimen result therefore, no HPV testing was performed. . Performed By: #### 4 [id number] #### [facility] [address] [place] [address] Dr. Aleah Peres Specimen adequacy: Comment Normal [facility] Comment on above: Result Comment: Sati sfactory for evaluation. Endocervical and/or squamous metaplastic cells (endocervical component) are present. Performed By: #### 4 [id number] #### [facility] [address] [place] [address] Dr. Aleah Peres OCC BLD IMMUNO SCREENon 04-0 OCCULT BLOOD Negative Normal NEGATIVE [facility] Comment on above: Performed By: #### O BSCRN #### [facility] [address] [place] [address] Dr. Aleah Peres SURGICAL PATH REPORTon 10-11 SURGICAL PATH REPORT [facility] Department of Pathology [address] [place] [phone] Name: CAMERON HIGGINS : 2000 [facility] [id number] Number: [facility] : n: Admit 22 years Attending ALEXIA BARRETT Age: Provider: Ordering ALEXIA BARRETT Provider: Consulti Surgical Pathology Report ng: ACCESSION: COLLECTED DATE/TIME: RECEIVED DATE/TIME: PATHOLOGIST: [id number] 10/08/2022 12:03 EDT 10/08/2022 12:03 EDT TOM AGUERO MD Final Diagnosis Report for [place] RETAINED PRODUCTS OF CONCEPTION: - CHORIONIC [...] ald 10/08/2022 Tissue pathology report for: [facility], [address] [place] [id number]; ____ Print 10/11/2022 15:01 EDT Number: Date/Time: [facility] Department of Pathology [address] [place] [phone] Name: CAMERON HIGGINS : 2000 [facility] [id number] Number: Gender Female [facility] : n: Admit 22 years Attending ALEXIA BARRETT Age: Provider: Ordering ALEXIA BARRETT Provider: Consulti Surgical Pathology Report ng: ACCESSION: COLLECTED DATE/TIME: RECEIVED DATE/TIME: PATHOLOGIST: [id number] 10/08/2022 12:03 EDT 10/08/2022 12:03 EDT LACI KHAN, TOM Gross Description PATHOLOGY SERVICES PROVIDED BY [employer] (CLIA #[id number]) in cooperation with [facility] at [address] [place] [address] ( CLIA #[id number]) Codes CPT CODE: 24108 ____ Print 10/11/2022 15:01 EDT Number: Date/Time: Normal [facility] Comment on above: Performed By: #### 9 [id number] #### [facility] Services [address] [place] [address] Retirement Officer: Tom Aguero MD URon 10-08-2022 , QUAL Negative Normal NEGATIVE [facility] Comment on above: Performed By: #### P REGU #### [facility] [address] [place] [address] Dr. Aleah Peres US PELVIS AND TRANSVAGon [...] PIPPA ORTEGA Date: 2022-10-06 14:55 Normal [facility] SURGICAL PATH REPORTon 09-16 SURGICAL PATH REPORT [facility] Department of Pathology [address] [place] [address] [phone] Name: CHULA HIGGINS : 2000 [employer] [id number] Number: Gender Female [facility] : n: Admit 22 years Attending TERESITA HODGE Age: Provider: Ordering TERESITA HODGE Provider: Consulti Surgical Pathology Report ng: ACCESSION: COLLECTED DATE/TIME: RECEIVED DATE/TIME: PATHOLOGIST: [id number] 09/15/2022 12:34 EST 09/15/2022 12:34 HENRY MOREIRA MD, LUIS ERAZO Final Diagnosis Report for [place] PRODUCTS OF CONCEPTION, DILATION AND CURETTAGE: - CHORIONIC VILLI ARE PRESENT; NO SIGNIFICANT ATYPIA IS OBSERVED. - BENIGN MATERIAL DECIDUA PRESENT. - NO PARTS ARE IDENTIFIED. LUIS MOREIRA PATHOLOGIST (Electronic Signature) Date Verified 09/16/2022 LN Clinical Data PRE-OP DIAGNOSIS: Not specified POST-OP DIAGNOSIS: Missed PROCEDURES: D and C with suction SPECIMEN: Products of conception / health care marketing manager Gross Description Labeled products of conception. Received in formalin in a suction sock are multiple irregular segments of medrano pink to red black soft tissue. The individual segments have a variable granular to partially smooth glistening membranous character. The specimen in total aggregate measures 12.5 x 7.5 x 4.0 cm. There are no grossly identifiable parts. Workers Compensation Claims Specialist sections are submitted in three cassettes. MP/ald 09/15/2022 ____ Print 09/16/2022 14:53 EST Number: Date/Time: [facility] Department of Pathology [address] [place] [id number] Name: CHULA HIGGINS : 2000 [facility] [id number] Number: Gender Female [facility] : n: Admit 22 years Attending TERESITA HODGE Age: Provider: Ordering TERESITA HODGE Provider: Consulti Surgical Pathology Report ng: ACCESSION: COLLECTED DATE/TIME: RECEIVED DATE/TIME: PATHOLOGIST: [id number] 09/15/2022 12:34 EST 09/15/2022 12:34 EST LILLIE KHAN, LUIS ERAZO Gross Description Tissue pathology report for: [facility], [address] [place] [address]; PATHOLOGY SERVICES PROVIDED [facility] , [facility] (CLIA #[id number]) in cooperation with [facility] at [address] [place] [address] ( CLIA #[id number]) Codes CPT CODE: 53700 ____ Print 09/16/2022 14:53 EST Number: Date/Time: Normal [facility] Comment on above: Performed By: #### [id number] #### [facility] Services [address] [place] [address] Retirement Officer: Tom Aguero MD CBC AUTO DIFFon 09-15-2022 BASO # 0.0 103/ul Normal 0.0-0.1 [facility] Comment on above: Performed By: #### C BC #### [facility] [address] [address] [address] Aleah Peres Basophils/100 WBC (Bld) 0.4 % Normal 0.2-2.0 [facility] Comment on above: Performed By: #### C BC #### [facility] [address] [address] [address] Aleah Peres EO # 0.1 103/ul Normal 0.0-0.7 [facility] Comment on above: Performed By: #### C BC #### [facility] [address] [address] [address] Aleah Peres Eosinophils/100 WBC (Bld) 1.3 % Normal 0.9-7.0 [facility] Comment on above: Performed By: #### C BC #### [facility] [address] [place] [address] Dr. Aleah Peres Erythrocyte distribution width (RBC) [Ratio] 13.8 % Normal 11.0-15.0 [facility] Comment on above: Performed By: #### C BC #### [facility] [address] [place] [address] Dr. Aleah Peres Hematocrit (Bld) [Volume fraction] 35.5 % Critically low 36.0-48.0 [facility] Comment on above: Performed By: #### C BC #### [facility] [address] [place] [address] Dr. Aleah Peres Hemoglobin (Bld) [Mass/Vol] 11.6 g/dL Critically low 12.0-16.0 [facility] Comment on above: Performed By: #### C BC #### [facility] [address] [place] [address] Dr. Aleah Peres IG # 0.03 10e3/ul Normal 0.00-0.03 [facility] Comment on above: Performed By: #### C BC #### [facility] [address] [address] [address] Aleah Peres IG % 0.4 % Normal 0.0-0.5 [facility] Comment on above: Performed By: #### C BC #### [facility] [address] [place] [address] Dr. Aleah Peres LYMPH # 2.8 103/ul Normal 1.2-3.8 [facility] Comment on above: Performed By: #### C BC #### [facility] [address] [place] [address] Dr. Aleah Peres Lymphocytes/100 WBC (Bld) 32.9 % Normal 20.5-60.0 [facility] Comment on above: Performed By: #### C BC #### [facility] [address] [place] [address] Dr. Aleah Peres MANUAL DIFF REQ NO Normal [facility] Comment on above: Performed By: #### C BC #### [facility] [address] [place] [address] Dr. Aleah Peres MCH (RBC) [Entitic mass] 26.9 pg Normal 26.7-34.0 [facility] Comment on above: Performed By: #### C BC #### [facility] [address] [place] [address] Dr. Aleah Peres MCHC (RBC) [Mass/Vol] 32.7 g/dL Normal 29.9-35.2 [facility] Comment on above: Performed By: #### C BC #### [facility] [address] [place] [address] Dr. Aleah Peres MCV (RBC) [Entitic vol] 82.4 fL Normal 81.0-99.0 [facility] Comment on above: Performed By: #### C BC #### [facility] [address] [place] [address] Dr. Aleah Peres MONO # 0.7 103/ul Normal 0.3-0.8 [facility] Comment on above: Performed By: #### C BC #### [facility] [address] [place] [address] Dr. Aleah Peres Monocytes/100 WBC (Bld) 8.6 % Normal 1.7-12.0 [facility] Comment on above: Performed By: #### C BC #### [facility] [address] [place] [address] Dr. Aleah Peres NEUT # 4.8 103/ul Normal 1.4-6.5 [facility] Comment on above: Performed By: #### C BC #### [facility] [address] [place] [address] Dr. Aleah Peres Neutrophils/100 WBC (Bld) 56.4 % Normal 43.0-75.0 [facility] Comment on above: Performed By: #### C BC #### [facility] [address] [place] [address] Dr. Aleah Peres Platelet mean volume (Bld) [Entitic vol] 9.9 fL Normal 9.5-13.5 [facility] Comment on above: Performed By: #### C BC #### [facility] [address] [place] [address] Dr. Aleah Peres PLT 316 103/ul Normal 150-450 [facility] Comment on above: Performed By: #### C BC #### [facility] [address] [place] [address] Dr. Aleah Peres RBC 4.31 106/ul Normal 4.20-5.40 [facility] Comment on above: Performed By: #### C BC #### [facility] [address] [place] [address] Dr. Aleah Peres WBC 8.4 103/ul Normal 4.0-11.0 [facility] Comment on above: Performed By: #### C BC #### [facility] [address] [place] [address] Dr. Aleah Peres PREG QUANT HCGon 09-15-2022 HCG QUANT 07549 mIU/mL Normal [facility] Comment on above: Performed By: #### P REGQNT #### [facility] [address] [place] [address] Dr. Aleah Peres HCG RANGE SEE BELOW Normal [facility] Comment on above: Result Comment: 5-50 0.2-1 WEEK 50-500 1-2 WEEKS 100-5,000 2-3 WEEKS 500-10,000 3-4 WEEKS 1,000-50,000 4-5 WEEKS 10,000-100,000 5-6 WEEKS 15,000-200,000 6-8 WEEKS 10,000-100,000 2-3 MONTHS Performed By: #### P REGQNT #### [facility] [address] [place], [place] [address] Dr. Aleah Peres TYPE AND SCREENon 09-15-2022 TYPE AND SCREEN Negative Normal [facility] Comment on above: Performed By: #### P REGQNT #### [facility] [address] [place], [place] [address] Dr. Aleah Peres US PELVISon 09-15-2022 US PELVIS EXAMINATION: US PELVIS HISTORY: Spontaneous COMPARISON: No relevant comparison available. TECHNIQUE: Transabdominal and transvaginal sonographic examination. FINDINGS: UTERUS: Small amount of fluid within endometrial cavity. No visible retained products of conception. IMPRESSION: 1. No appreciable retained products of conception within uterine cavity. Electronically authenticated by: ASHLEY NOEL Date: 2022-09-15 15:42 Normal [facility] US PREG TVon 09-13-2022 US PREG [...] Right ovary was not identified. Normal [facility] CBC AUTO DIFFon 08-16-2022 BASO # 0.0 103/ul Normal 0.0-0.1 [facility] Comment on above: Performed By: #### C BC #### [facility] [address] [place] [address] Dr. Aleah Peres Basophils/100 WBC (Bld) 0.4 % Normal 0.2-2.0 [facility] Comment on above: Performed By: #### C BC #### [facility] [address] [place] [address] Dr. Aleah Peres EO # 0.1 103/ul Normal 0.0-0.7 [facility] Comment on above: Performed By: #### C BC #### [facility] [address] [place] [address] Dr. Aleah Peres Eosinophils/100 WBC (Bld) 1.4 % Normal 0.9-7.0 [facility] Comment on above: Performed By: #### C BC #### [facility] [address] [place] [address] Dr. Aleah Peres Erythrocyte distribution width (RBC) [Ratio] 13.6 % Normal 11.0-15.0 [facility] Comment on above: Performed By: #### C BC #### [facility] [address] [place] [address] Dr. Aleah Peres Hematocrit (Bld) [Volume fraction] 32.4 % Critically low 36.0-48.0 [facility] Comment on above: Performed By: #### C BC #### [facility] [address] [place] [address] Dr. Aleah Peres Hemoglobin (Bld) [Mass/Vol] 11.2 g/dL Critically low 12.0-16.0 [facility] Comment on above: Performed By: #### C BC #### [facility] [address] [place] [address] Dr. Aleah Peres IG # 0.02 10e3/ul Normal 0.00-0.03 [facility] Comment on above: Performed By: #### C BC #### [facility] [address] [place] [address] Dr. Aleah Peres IG % 0.3 % Normal 0.0-0.5 [facility] Comment on above: Performed By: #### C BC #### [facility] [address] [place] [address] Dr. Aleah Peres LYMPH # 2.4 103/ul Normal 1.2-3.8 [facility] Comment on above: Performed By: #### C BC #### [facility] [address] [place] [address] Dr. Aleah Peres Lymphocytes/100 WBC (Bld) 32.3 % Normal 20.5-60.0 [facility] Comment on above: Performed By: #### C BC #### [facility] [address] [place] [address] Dr. Aleah Peres MANUAL DIFF REQ NO Normal [facility] Comment on above: Performed By: #### C BC #### [facility] [address] [place] [address] Dr. Aleah Peres MCH (RBC) [Entitic mass] 26.9 pg Normal 26.7-34.0 [facility] Comment on above: Performed By: #### C BC #### [facility] [address] [place] [address] Dr. Aleah Peres MCHC (RBC) [Mass/Vol] 34.6 g/dL Normal 29.9-35.2 [facility] Comment on above: Performed By: #### C BC #### [facility] [address] [place] [address] Dr. Aleah Peres MCV (RBC) [Entitic vol] 77.9 fL Critically low 81.0-99.0 [facility] Comment on above: Performed By: #### C BC #### [facility] [address] [place] [address] Dr. Aleah Peres MONO # 0.7 103/ul Normal 0.3-0.8 [facility] Comment on above: Performed By: #### C BC #### [facility] [address] [place] [address] Dr. Aleah Peres Monocytes/100 WBC (Bld) 9.1 % Normal 1.7-12.0 [facility] Comment on above: Performed By: #### C BC #### [facility] [address] [place] [address] Dr. Aleah Peres NEUT # 4.1 103/ul Normal 1.4-6.5 [facility] Comment on above: Performed By: #### C BC #### [facility] [address] [place] [address] Dr. Aleah Peres Neutrophils/100 WBC (Bld) 56.5 % Normal 43.0-75.0 [facility] Comment on above: Performed By: #### C BC #### [facility] [address] [place] [address] Dr. Aleah Peres Platelet mean volume (Bld) [Entitic vol] 9.4 fL Critically low 9.5-13.5 [facility] Comment on above: Performed By: #### C BC #### [facility] [address] [place] [address] Dr. Aleah Peres PLT 303 103/ul Normal 150-450 [facility] Comment on above: Performed By: #### C BC #### [facility] [address] [place] [address] Dr. Aleah Peres RBC 4.16 106/ul Critically low 4.20-5.40 [facility] Comment on above: Performed By: #### C BC #### [facility] [address] [place] [address] Dr. Aleah Peres WBC 7.3 103/ul Normal 4.0-11.0 [facility] Comment on above: Performed By: #### C BC #### [facility] [address] [place] [address] Dr. Aleah Peres ER URINE PROFILEon 3 Bilirubin Ql (U) Negative Normal NEGATIVE [facility] Comment on above: Performed By: #### E RUR #### [facility] [address] [place] [address] Dr. Aleah Peres Clarity (U) CLEAR Normal CLEAR [facility] Comment on above: Performed By: #### E RUR #### [facility] [address] [place] [address] Dr. Aleah Peres Color (U) YELLOW Normal YELLOW [facility] Comment on above: Performed By: #### E RUR #### [facility] [address] [place] [address] Dr. Aleah OMALLEY A micrscopic examination will be performed if indicated. Normal [facility] Comment on above: Performed By: #### E RUR #### [facility] [address] [place] [address] Dr. Aleah Peres Glucose Ql (U) Negative Normal NEGATIVE [facility] Comment on above: Performed By: #### E RUR #### [facility] [address] [place] [address] Dr. Aleah Peres Hemoglobin Ql (U) Negative Normal NEGATIVE [facility] Comment on above: Performed By: #### E RUR #### [facility] [address] [place] [address] Dr. Aleah Peres Ketones Ql (U) Negative Normal NEGATIVE [facility] Comment on above: Performed By: #### E RUR #### [facility] [address] [place] [address] Dr. Aleah Peres LEUKOCYTES Negative Normal NEGATIVE [facility] Comment on above: Performed By: #### E RUR #### [facility] [address] [place] [address] Dr. Aleah Peres Nitrite Ql (U) Negative Normal NEGATIVE [facility] Comment on above: Performed By: #### E RUR #### [facility] [address] [place] [address] Dr. Aleah Peres pH (U) 6.0 [pH] Normal 5-9 [facility] Comment on above: Performed By: #### E RUR #### [facility] [address] [place] [address] Dr. Aleah Peres SPEC GRAVITY 1.020 Normal 1.005-<=1.025 [facility] Comment on above: Performed By: #### E RUR #### [facility] [address] [place] [address] Dr. Aleah Peres UA PROTEIN Negative Normal NEGATIVE/ TRACE [facility] Comment on above: Performed By: #### E RUR #### [facility] [address] [place] [address] Dr. Aleah Peres UR MICRO IND NOT INDICATED Normal [facility] Comment on above: Performed By: #### E RUR #### [facility] [address] [place] [address] Dr. Aleah Peres Urobilinogen Qn (U) 0.2 {Edmund'U}/dL Normal 0.2 - 1. 0 [facility] Comment on above: Performed By: #### E RUR #### [facility] [address] [place] [address] Dr. Aleah Peres PROF 14(COMP METB)on 023 Albumin [Mass/Vol] 3.0 g/dL Critically low 3.4-5.0 [facility] Comment on above: Performed By: #### C MP #### [facility] [address] [place] [address] Dr. Aleah Peres Albumin/Globulin [Mass ratio] 0.8 {ratio} Normal [facility] Comment on above: Performed By: #### C MP #### [facility] [address] [place] [address] Dr. Aleah Peres ALP [Catalytic activity/Vol] 52 U/L Normal 46-116 [facility] Comment on above: Performed By: #### C MP #### [facility] [address] [place] [address] Dr. Aleah Peres ALT [Catalytic activity/Vol] 15 U/L Normal 14-59 [facility] Comment on above: Performed By: #### C MP #### [facility] [address] [place] [address] Dr. Aleah Peres Anion gap [Moles/Vol] 10.2 mmol/L Normal [facility] Comment on above: Performed By: #### C MP #### [facility] [address] [place], [place] [id number] Dr. Aleah Peres AST [Catalytic activity/Vol] 13 U/L Critically low 15-37 [facility] Comment on above: Performed By: #### C MP #### [facility] [address] [address] [address] Aleah Peres Bilirubin [Mass/Vol] 0.2 mg/dL Normal 0.2-1.0 [facility] Comment on above: Performed By: #### C MP #### [facility] [address] [address] [address] Aleah Peres Calcium [Mass/Vol] 9.1 mg/dL Normal 8.5-10.1 [facility] Comment on above: Performed By: #### C MP #### [facility] [address] [place] [address] Dr. Aleah Peres Chloride [Moles/Vol] 100 mmol/L Normal 98-107 [facility] Comment on above: Performed By: #### C MP #### [facility] [address] [place] [address] Dr. Aleah Peres CO2 [Moles/Vol] 28.8 mmol/L Normal 21.0-32.0 [facility] Comment on above: Performed By: #### C MP #### [facility] [address] [place] [address] Dr. Aleah Peres Creatinine [Mass/Vol] 0.56 mg/dL Normal 0.55-1.02 [facility] Comment on above: Performed By: #### C MP #### [facility] [address] [place] [address] Dr. Aleah Peres EGFR-AF SWEDISH >60 Normal >=60 [facility] Comment on above: Performed By: #### C MP #### [facility] [address] [place] [address] Dr. Aleah Peres EGFR-NON AF SWEDISH >60 Normal >=60 [facility] Comment on above: Performed By: #### C MP #### [facility] [address] [place] [address] Dr. Aleah Peres Globulin (S) [Mass/Vol] 3.9 g/dL Normal [facility] Comment on above: Performed By: #### C MP #### [facility] [address] [address] [address] Aleah Peres Glucose [Mass/Vol] 90 mg/dL Normal 74-106 [facility] Comment on above: Performed By: #### C MP #### [facility] [address] [address] [address] Aleah Peres Potassium [Moles/Vol] 4.0 mmol/L Normal 3.5-5.1 [facility] Comment on above: Performed By: #### C MP #### [facility] [address] [address] [address] Aleah Peres Protein [Mass/Vol] 6.9 g/dL Normal 6.4-8.2 [facility] Comment on above: Performed By: #### C MP #### [facility] [address] [address] [address] Aleah Peres Sodium [Moles/Vol] 135 mmol/L Critically low 136-145 [facility] Comment on above: Performed By: #### C MP #### [facility] [address] [address] [address] Aleah Peres Urea nitrogen [Mass/Vol] 4.0 mg/dL Critically low 7.0-18.0 [facility] Comment on above: Performed By: #### C MP #### [facility] [address] [address] [address] Aleah Peres Urea nitrogen/Creatinine [Mass ratio] 7.1 mg/mg [facility] Comment on above: Performed By: #### C MP #### [facility] [address] [address] [address] Aleah Peres PAP ACOG PANEL 2: 21 to 29on 08-02-2022 . . Normal [facility] Comment on above: Result Comment: Perf ormed at: WB Performed By: #### [id number] #### [facility] [address] [address] [address] Aleah Peres Age Gdln ACOG Testing - [facility] Comment on above: Performed By: #### [id number] #### [facility] [address] [place] [address] Dr. Aleah Peres DIAGNOSIS: Comment Abnormal [facility] Comment on above: Result Comment: EPIT HELIAL CELL ABNORMALITY. LOW GRADE SQUAMOUS INTRAEPITHELIAL LESION (LSIL). Performed at: WB Performed By: #### [id number] #### [facility] [address] [place] [address] Dr. Aleah Peres Electronically signed by: Comment Normal [facility] Comment on above: Result Comment: Amena Arciniega MD, Pathologist Performed at: WB Performed By: #### [id number] #### [facility] [address] [place] [address] Dr. Aleah Peres Methodology: Comment Normal [facility] Comment on above: Result Comment: This liquid based ThinPrep(R) pap test was screened with the use of an image guided system. Performed at: WB Performed By: #### [id number] #### [facility] [address] [place] [address] Dr. Aleah Peres Note: Comment Normal [facility] Comment on above: Result Comment: The Pap smear is a screening test designed to aid in the detection of premalignant and malignant conditions of the uterine cervix. It is not a diagnostic procedure and should not be used as the sole means of detecting cervical cancer. Both false-positive and false-negative reports do occur. . Performed at: WB Performed By: #### [id number] #### [facility] [address] [place] [address] Dr. Aleah Peres Pathologist Provided ICD10 Comment Normal [facility] Comment on above: Result Comment: R87. [id number] Performed at: WB Performed By: #### [id number] #### [facility] [address] [place] [address] Dr. Aleah Peres Performed by: Comment Normal [facility] Comment on above: Result Comment: Caitlyn Crenshaw, Credit Collection Associate (ASCP) Performed at: BA Performed By: #### [id number] #### [facility] [address] [address] [address] Aleah Peres Recommendation: Comment Abnormal [facility] Comment on above: Result Comment: Sugg est follow up as clinically appropriate. Performed at: WB Performed By: #### [id number] #### [facility] [address] [address] [address] Aleah Peres Reflex Criteria: Comment Normal [facility] Comment on above: Result Comment: The HPV DNA reflex criteria were not met with this specimen result therefore, no HPV testing was performed. . Performed at: WB Performed By: #### [id number] #### [facility] [address] [address] [address] Aleah Peres Specimen adequacy: Comment Normal [facility] Comment on above: Result Comment: Sati sfactory for evaluation. Endocervical and/or squamous metaplastic cells (endocervical component) are present. Performed at: WB Performed By: #### [id number] #### [facility] [address] [address] [address] Aleah [facility] SARS-CoV-2 (COVID-19) RNA MARY ELLEN+probe Ql (Unsp spec) Not detected Normal NOT DETECTED [facility] Comment on above: Result Comment: When [...] for this test is supported by the [place] of Health and Human Service's declaration that [...] used). Performed By: #### P REGQNT #### [facility] [address] [address] [address] Aleah Peres Vital Signs Date Time Vital Sign Value Performing Clinician Facfidel lity 08-31-2023 13:43-0500 Body mass index (BMI) [Ratio] 33.2 kg/m2 Teresita Ayesha DO Work Phone: [facility] 08-31-2023 13:43-0500 Body weight 86.36 kg Teresita Ayesha DO Work Phone: [facility] 08-31-2023 13:43-0500 Diastolic blood pressure 70 mm[Hg] Teresita Ayesha DO Work Phone: [facility] 08-31-2023 13:43-0500 Systolic blood pressure 114 mm[Hg] Teresita Ayesha DO Work Phone: [facility] Encounters Encounter Date Encounter Type Care Provider Facility Start: 09-28-2023 End: 09-28-2023 ambulatory TERESITA AYESHA Not Available Start: 09-14-2023 End: 09-14-2023 ambulatory [facility] Not Available Start: 08-31-2023 End: 08-31-2023 ambulatory TERESITA AYESHA Not Available Start: 08-31-2023 End: 08-31-2023 Office outpatient visit 15 minutes Teresita Ayesha DO Work Phone: [facility] Comment on above: Third trimester preg hanh Start: 08-10-2023 End: 08-10-2023 ambulatory AMY DOBBINS Not Available Start: 07-13-2023 End: 07-13-2023 ambulatory TERESITA AYESHA Not Available Start: 06-13-2023 End: 06-13-2023 ambulatory AYM DOBBINS Not Available Start: 11-10-2022 End: 11-10-[address] ALEXIA BARRETT . Facility: Start: 10-22-2022 End: 10-23-2022 ambulatory NATASHA CAMARA . Facility: Start: 10-08-2022 End: 10-09-2022 ambulatory ALEXIA BARRETT Facility:[facility] Start: 10-08-2022 End: 10-08-[address] ALEXIA BARRETT . Facility:[facility] Start: 10-06-2022 End: 10-07-[address] ALEXIA BARRETT . Facility:[facility] Start: 09-17-2022 Encounter for other preprocedural examination DR TERESITA HODGE . [facility] Start: 09-15-2022 End: 09-16-2022 ambulatory TERESITA HODGE Facility:[facility] Start: 09-15-2022 End: 09-15-[address] [...] Routine [facility] [address] [place] [id number] Amy Dobbins PA [address] [place] [address] [facility] Payers Date Payer Category Payer Medicaid [id number] 2022 [facility] AN[employer] BCBS MEDICA[place] [id number] 2022-Present [address] [place] [address] [id number] 1999 Unknown [id number] [id number] 1999 Unknown [id number] 2.16.840.1.745220.3.579.2.593 1999 Unknown [id number] 2.16.840.1.868409.3.579.2.593 1999 Unknown [id number] 2.16.840.1.817001.3.579.2.593 1999 Unknown [id number] 2.16.840.1.268187.3.579.2.593 1999 Unknown [id number] 2.16.840.1.585564.3.579.2.593 1999 Unknown [id number] 2.16.840.1.362254.3.579.2.593 1999 Unknown [id number] 2.16.840.1.335094.3.579.2.593 1999 Unknown [id number] 2.16.840.1.775159.3.579.2.593 1999 Unknown [id number] 2.16.840.1.167014.3.579.2.593 1999 Unknown [id number] 2.16.840.1.423134.3.579.2.1259 1999 Unknown [id number] 2.16.840.1.608143.3.579.2.1259 1999 Unknown [id number] 2.16.840.1.350553.3.579.2.1259 1999 Unknown [id number] 2.16.840.1.690584.3.579.2.1259 1999 Unknown [id number] 2.16.840.1.998347.3.579.2.1259 1999 Unknown [id number] 2.16.840.1.252058.3.579.2.1259 1959 Unknown [id number] 1959 Unknown [id number] Social History Date Type Detail Facility Start: 04-18-2023 Tobacco smoking stat [facility] Never smoked tobacco [facility] Start: 08-31-2023 Alcohol intake Lifetime non-d enio (finding) [facility] Start: 06-13-2023 History of Social function [facility] Start: 06-13-2023 Tobacco use panel [facility] Start: 04-18-2023 Alcohol Comment caffeine: none [facility] Start: 02-17-2023 [facility] Start: 1999 Sex Assigned At Not on file [facility] History of Present illness Narrative 08-31-2023 Sharon Hare, REPRODUCTIVE HEALTHCARE ASSISTANT - 08/31/2023 1:40 PM EST Note Date & Type Note Facility 08-31-2023 History of Presen t illness Narrative Reason for Appointment: Patient ID: Dashawnosofie Higgins is a 23 y.o. female who [...] History: Procedure Laterality Date BREAST BIOPSY Left 2015 DILATION AND CURETTAGE 09/15/2022 DILATION AND CURETTAGE [...] nursing note reviewed. Exam conducted with a manager mall present. Vitals: Estimated body mass index is [...] Teresita Hodge DO documented in this encounter [facility] Clinical Note 09-15-2022 Note Date & Type [...] by: ASHLEY NOEL Date: 2022-09-15 07:41 [facility] Clinical Note 09-15-2022 Note Date & Type Note Facility 09-15-2022 Note OPERATIVE NOTE OPERATION DATE: 09/15/2022 PROCEDURE: Suction D AND C. PREOPERATIVE DIAGNOSIS: First trimester missed at 10 weeks. POSTOPERATIVE DIAGNOSIS: First trimester missed at 10 weeks. ANESTHESIA: General. SURGEON: Teresita Hodge D.O. EXCEL EXPERT: None. FINDINGS: Products of conception. SPECIMEN: Products [...] products of conception were removed using an 9-Cuban suction curette. Excellent hemostasis was noted. The patient tolerated the procedure well. Sponge, lap, and needle counts were correct x 2. All instruments were then removed from the patient's vagina. The patient was taken to the Recovery Room in stable condition. ?? [facility] Evaluation note Note Date & Type Note [...] section and content) DATE CREATED AUTHOR 10/12/2022 [facility] DATE CREATED AUTHOR AUTHOR'S ORGANIZ ATION 12/08/2022 [facility] DATE CREATED AUTHOR AUTHOR'S ORGANIZ ATION 09/29/2023 [facility] EPIC Reason for Visit (unrecogniz ed section and [...] BE BASED ON THE PRIMARY CLINICAL RECORDS. [facility] [employer] [facility]. provides no warranty or guarantee of the accuracy or completeness of information in this document.
== END 2023-10-12 21:03 | disposition home or self-care (01) ==
LOC: LAB 21:02
PROVIDERS: Visit Provider Obstetrics & Gynecology
DX: Z34.93 Encounter for supervision of normal pregnancy, unspecified, third trimester (principal)
CPT/HCPCS: 87081

== ENCOUNTER 2023-10-18 20:31 | Inpatient (IN) | payer MEDICAID, SELFPAY ==
[2023-10-18] VITALS (12 sets, daily range): BP systolic 117–139; BP diastolic 77–89; PULSE 77–96; RESP 18; TEMP 36.3–36.4
--- OUTSIDE RECORDS SUMMARY | 2023-10-18 20:35 | XMS_ITS | CCD ---
Author Organization [facility] Care Team Providers Care Yarn Carrier Name Role Phone ALEXIA BARRETT Attending Unavailable [...] ., DR HALE Consulting Unavailabl e REQUEST, NONE LISTED Primary Care Unavaila ble ANTELMO CHRISTIANSON Consulting Unavailable KARASIK ., DR HALE Attending Unavailabl e KARASIK ., DR HALE Admitting Unavailabl e KARASIK ., DR HALE Consulting Unavailabl e REQUEST, DR NONE LISTED Primary Care Unavaila ble Unavailable Primary Care Provider Unavailcaitlyn DOBBINS, Attending Unavailable AYESHA, TERESITA Attending Unavailable MU, Attending Unavailable MU, Attending Unavailable AYESHA, TERESITA Attending Unavailable AYESHA, TERESITA Attending Unavailable AYESHA, TERESITA Attending Unavailable Medications Current Medications Medication Drug Class(es) Dates Sig (Normalized) Sig (Original) [id number] 200 actuat albuterol 0.09 mg/actuat metered dose [...] time. 0 09/21/2022 08/31/2023 Discontinued (Therapy completed) QM-Vpm-DM-[place]field-3 ( Gummies/DHA & FA) 0.4-32.5 MG chewable tablet (1 source) Start: 03-03-2023 End: 08-31-2023 AW-Bri-XA-[place]field-3 ( Gummies/DHA & FA) 0.4-32.5 MG chewable [...] UA Negative Negative - 4(70) +++ mg/dL [facility] Blood, UA Negative Negative - 50 William/mcL [facility] Clarity, UA Clear [facility] re Color, UA Yellow [facility] Healthcar e Glucose, UA Negative Negative - 2000(110) ++++ mg/dL [facility] Interpretation and review of laboratory results Abnormal [facility] Ketones, UA Positive Negative - 160(16) ++++ mg/dL [facility] Leukocytes, UA Trace Negative - 500+++ Roma/mcL [facility] Nitrite, UA Negative Negative - Positive [facility] pH, UA 7.5 5 - 9 [facility] e Protein, UA Trace Negative - 2000(20) ++++ mg/dL [facility] Spec Grav, UA 1.020 1 - 1.03 [facility] Urobilinogen, UA 0.2 0.2 - 12 mg/dL [facility] Healthcar e PAP ACOG PANEL 2: 21 to 29on 11-17-2022 . . Normal [facility] Comment on above: Performed By: #### 4 [id number] #### [facility] [address] [place] [address] Dr. Aleah Peres Age Gdln ACOG Testing 21-29 [facility] Comment on above: Performed By: #### 4 [id number] #### [facility] [address] [address] [address] Aleah Peres DIAGNOSIS: Comment [facility] Comment on above: Result Comment: NEGA TIVE FOR INTRAEPITHELIAL LESION OR MALIGNANCY. Performed By: #### 4 [id number] #### [facility] [address] [address] [address] Aleah Peres Methodology: Comment [facility] Comment on above: Result Comment: This liquid based ThinPrep(R) pap test was screened with the use of an image guided system. Performed By: #### 4 [id number] #### [facility] [address] [place] [address] Dr. Aleah Peres Note: Comment Normal [facility] Comment on above: Result Comment: The Pap smear is a screening test designed to aid in the detection of premalignant and malignant conditions of the uterine cervix. It is not a diagnostic procedure and should not be used as the sole means of detecting cervical cancer. Both false-positive and false-negative reports do occur. . Performed By: #### 4 [id number] #### [facility] [address] [place] [address] Dr. Aleah Peres Performed by: Comment Normal [facility] Comment on above: Result Comment: Annelise Martinez, Textile Bag Sewer Performed By: #### 4 [id number] #### [facility] [address] [place] [address] Dr. Aleah Peres Reflex Criteria: Comment Normal [facility] Comment on above: Result Comment: The HPV DNA reflex criteria were not met with this specimen result therefore, no HPV testing was performed. . Performed By: #### 4 [id number] #### [facility] [address] [place] [address] Dr. Aleah Peres Specimen adequacy: Comment Normal [facility] Comment on above: Result Comment: Sati sfactory for evaluation. Endocervical and/or squamous metaplastic cells (endocervical component) are present. Performed By: #### 4 [id number] #### [facility] [address] [place] [address] Dr. Aleah Peres OCC BLD IMMUNO SCREENon 04-0 OCCULT BLOOD Negative Normal NEGATIVE [facility] Comment on above: Performed By: #### O BSCRN #### [facility] [address] [place] [address] Dr. Aleah Peres SURGICAL PATH REPORTon 10-11 SURGICAL PATH REPORT [facility] Department of Pathology [address] [place] [address] [phone] Name: CAMERON HIGGINS : 2000 [employer] [id number] Number: Gender Female [facility] : n: Admit 22 years Attending ALEXIA BARRETT Age: Provider: Ordering ALEXIA BARRETT Provider: Consulti Surgical Pathology Report ng: ACCESSION: COLLECTED DATE/TIME: RECEIVED DATE/TIME: PATHOLOGIST: [id number] 10/08/2022 12:03 EDT 10/08/2022 12:03 EDT TOM AGUERO MD Final Diagnosis Report for [facility] [place] RETAINED PRODUCTS OF CONCEPTION: - CHORIONIC [...] ald 10/08/2022 Tissue pathology report for: [facility], [address] [place] [address]; ____ Print 10/11/2022 15:01 EDT Number: Date/Time: [facility] Department of Pathology [address] [place] [id number] Name: SCOTT, CAMERON Ortega : [address] [facility] [id number] Number: Gender Female Peter [facility] : n: Admit 22 years Attending ALEXIA BARRETT Age: Provider: Ordering ALEXIA BARRETT Provider: Consulti Surgical Pathology Report ng: ACCESSION: COLLECTED DATE/TIME: RECEIVED DATE/TIME: PATHOLOGIST: [id number] 10/08/2022 12:03 EDT 10/08/2022 12:03 EDT LACI KHAN, TOM Gross Description PATHOLOGY SERVICES PROVIDED BY [employer] (CLIA #[id number]) in cooperation with [facility] at [address] [place] [address] ( CLIA #[id number]) Codes CPT CODE: 63924 ____ Print 10/11/2022 15:01 EDT Number: Date/Time: Normal [facility] Comment on above: Performed By: #### 9 [id number] #### [facility] Laboratory Services [address] [place] [address] Cardiac Cath Technician: Tom Aguero MD URon 10-08-2022 , QUAL Negative Normal NEGATIVE [facility] Comment on above: Performed By: #### P REGU #### [facility] [address] [place] [address] Dr. Aleah Peres US PELVIS AND TRANSVAGon [...] PIPPA ORTEGA Date: 2022-10-06 14:55 Normal [facility] SURGICAL PATH REPORTon 09-16 SURGICAL PATH REPORT [facility] Department of Pathology [address] [place] [address] [phone] Name: CHULA HIGGINS : [address] [facility] [id number] Number: Gender Female [facility] [place] : n: Admit 22 years Attending TERESITA HODGE Age: Provider: Ordering TERESITA HODGE Provider: Consulti Surgical Pathology Report ng: ACCESSION: COLLECTED DATE/TIME: RECEIVED DATE/TIME: PATHOLOGIST: [id number] 09/15/2022 12:34 EST 09/15/2022 12:34 HENRY MOREIRA MD, LUIS ERAZO Final Diagnosis Report for [facility] [place] PRODUCTS OF CONCEPTION, DILATION AND CURETTAGE: - CHORIONIC VILLI ARE PRESENT; NO SIGNIFICANT ATYPIA IS OBSERVED. - BENIGN MATERIAL DECIDUA PRESENT. - NO PARTS ARE IDENTIFIED. LUIS MOREIRA PATHOLOGIST (Electronic Signature) Date Verified 09/16/2022 LN Clinical Data PRE-OP DIAGNOSIS: Not specified POST-OP DIAGNOSIS: Missed PROCEDURES: D and C with suction SPECIMEN: Products of conception / manager managed care Gross Description Labeled products of conception. Received in formalin in a suction sock are multiple irregular segments of medrano pink to red black soft tissue. The individual segments have a variable granular to partially smooth glistening membranous character. The specimen in total aggregate measures 12.5 x 7.5 x 4.0 cm. There are no grossly identifiable parts. Litigation Legal Secretary sections are submitted in three cassettes. MP/ald 09/15/2022 ____ Print 09/16/2022 14:53 EST Number: Date/Time: [facility] Department of Pathology [address] [place] [phone] Name: CHULA HIGGINS : [address] [facility] [id number] Number: Gender Female [facility] : n: Admit 22 years Attending TERESITA HODGE Age: Provider: Ordering TERESITA HODGE Provider: Consulti Surgical Pathology Report ng: ACCESSION: COLLECTED DATE/TIME: RECEIVED DATE/TIME: PATHOLOGIST: [id number] 09/15/2022 12:34 EST 09/15/2022 12:34 EST LILLIE KHAN, LUIS ERAZO Gross Description Tissue pathology report for: [facility], [address] [place] [address]; [facility]OLOG[facility] , [facility] (CLIA #[id number]) in cooperation with [facility] [address] [place] [address] ( CLIA #[id number]) Codes CPT CODE: 41791 ____ Print 09/16/2022 14:53 EST Number: Date/Time: Normal [facility] Comment on above: Performed By: #### 9 [id number] #### [facility] Laboratory Services [address] [place] [address] Cardiac Cath Technician: Tom Aguero MD CBC AUTO DIFFon 09-15-2022 BASO # 0.0 103/ul Normal 0.0-0.[address] [facility] Comment on above: Performed By: #### C BC #### [facility] [address] [place] [address] Dr. Aleah Peres Basophils/100 WBC (Bld) 0.4 % Normal 0.2-2.0 [facility] Comment on above: Performed By: #### C BC #### [facility] [address] [place] [address] Dr. Aleah Peres EO # 0.1 103/ul Normal 0.0-0.[address] [facility] Comment on above: Performed By: #### C BC #### [facility] [address] [place] [address] Dr. Aleah Peres Eosinophils/100 WBC (Bld) 1.3 % Normal 0.9-7.0 [facility] Comment on above: Performed By: #### C BC #### [facility] [address] [place] [address] Dr. Aleah Peres Erythrocyte distribution width (RBC) [Ratio] 13.8 % Normal 11.0-15.0 [facility] Comment on above: Performed By: #### C BC #### [facility] [address] [place] [address] Dr. Aleah Peres Hematocrit (Bld) [Volume fraction] 35.5 % Critically low 36.0-48.0 [facility] Comment on above: Performed By: #### C BC #### [facility] [address] [place] [address] Dr. Aleah Peres Hemoglobin (Bld) [Mass/Vol] 11.6 g/dL Critically low 12.0-16.0 [facility] Comment on above: Performed By: #### C BC #### [facility] [address] [place] [address] Dr. Aleah Peres IG # 0.03 10e3/ul Normal 0.00-0.03 [facility] Comment on above: Performed By: #### C BC #### [facility] [address] [place] [address] Dr. Aleah Peres IG % 0.4 % Normal 0.0-0.[address] [facility] Comment on above: Performed By: #### C BC #### [facility] [address] [place] [address] Dr. Aleah Peres LYMPH # 2.8 103/ul Normal 1.2-3.[address] [facility] Comment on above: Performed By: #### C BC #### [facility] [address] [place] [address] Dr. Aleah Peres Lymphocytes/100 WBC (Bld) 32.9 % Normal 20.5-60.0 [facility] Comment on above: Performed By: #### C BC #### [facility] [address] [place] [address] Dr. Aleah Peres MANUAL DIFF REQ NO Normal [facility] Comment on above: Performed By: #### C BC #### [facility] [address] [place] [address] Dr. Aleah Peres MCH (RBC) [Entitic mass] 26.9 pg Normal 26.7-34.0 [facility] Comment on above: Performed By: #### C BC #### [facility] [address] [place] [address] Dr. Aleah Peres MCHC (RBC) [Mass/Vol] 32.7 g/dL Normal 29.9-35.[address] [facility] Comment on above: Performed By: #### C BC #### [facility] [address] [place] [address] Dr. Aleah Peres MCV (RBC) [Entitic vol] 82.4 fL Normal 81.0-99.[address] [facility] Comment on above: Performed By: #### C BC #### [facility] [address] [place] [address] Dr. Aleah Peres MONO # 0.7 103/ul Normal 0.3-0.[address] [facility] Comment on above: Performed By: #### C BC #### [facility] [address] [place] [address] Dr. Aleah Peres Monocytes/100 WBC (Bld) 8.6 % Normal 1.7-12.[address] [facility] Comment on above: Performed By: #### C BC #### [facility] [address] [place] [address] Dr. Aleah Peres NEUT # 4.8 103/ul Normal 1.4-6.[address] [facility] Comment on above: Performed By: #### C BC #### [facility] [address] [place] [address] Dr. Aleah Peres Neutrophils/100 WBC (Bld) 56.4 % Normal 43.0-75.0 [facility] Comment on above: Performed By: #### C BC #### [facility] [address] [place] [address] Dr. Aleah Peres Platelet mean volume (Bld) [Entitic vol] 9.9 fL Normal 9.5-13.[address] [facility] Comment on above: Performed By: #### C BC #### [facility] [address] [place] [address] Dr. Aleah Peres PLT 316 103/ul Normal 150-[address] [facility] Comment on above: Performed By: #### C BC #### [facility] [address] [place] [address] Dr. Aleah Peres RBC 4.31 106/ul Normal 4.20-5.40 [facility] Comment on above: Performed By: #### C BC #### [facility] [address] [place] [address] Dr. Aleah Peres WBC 8.4 103/ul Normal 4.0-11.0 [facility] Comment on above: Performed By: #### C BC #### [facility] [address] [place] [address] Dr. Aleah Peres PREG QUANT HCGon 09-15-2022 HCG QUANT 32704 mIU/mL Normal [facility] Comment on above: Performed By: #### P REGQNT #### [facility] [address] [place] [address] Dr. Aleah Peres HCG RANGE SEE BELOW Normal [facility] Comment on above: Result Comment: 5-50 0.2-1 WEEK 50-500 1-2 WEEKS 100-5,000 2-3 WEEKS 500-10,000 3-4 WEEKS 1,000-50,000 4-5 WEEKS 10,000-100,000 5-6 WEEKS 15,000-200,000 6-8 WEEKS 10,000-100,000 2-3 MONTHS Performed By: #### P REGQNT #### [facility] [address] [place], [place] [address] Dr. Aleah Peres TYPE AND SCREENon 09-15-2022 TYPE AND SCREEN Negative Normal [facility] Comment on above: Performed By: #### P REGQNT #### [facility] [address] [place], [place] [address] Dr. Aleah Peres US PELVISon 09-15-2022 US PELVIS EXAMINATION: US PELVIS HISTORY: Spontaneous COMPARISON: No relevant comparison available. TECHNIQUE: Transabdominal and transvaginal sonographic examination. FINDINGS: UTERUS: Small amount of fluid within endometrial cavity. No visible retained products of conception. IMPRESSION: 1. No appreciable retained products of conception within uterine cavity. Electronically authenticated by: ASHLEY NOEL Date: 2022-09-15 15:42 Normal [address] [facility] US PREG TVon 09-13-2022 US PREG [...] Right ovary was not identified. Normal [facility] CBC AUTO DIFFon 08-16-2022 BASO # 0.0 103/ul Normal 0.0-0.[address] [facility] Comment on above: Performed By: #### C BC #### [facility] [address] [address] [address] Aleah Peres Basophils/100 WBC (Bld) 0.4 % Normal 0.2-2.[address] [facility] Comment on above: Performed By: #### C BC #### [facility] [address] [address] [address] Aleah Peres EO # 0.1 103/ul Normal 0.0-0.[address] [facility] Comment on above: Performed By: #### C BC #### [facility] [address] [place] [address] Dr. Aleah Peres Eosinophils/100 WBC (Bld) 1.4 % Normal 0.9-7.[address] [facility] Comment on above: Performed By: #### C BC #### [facility] [address] [place] [address] Dr. Aleah Peres Erythrocyte distribution width (RBC) [Ratio] 13.6 % Normal 11.0-15.0 [facility] Comment on above: Performed By: #### C BC #### [facility] [address] [place] [address] Dr. Aleah Peres Hematocrit (Bld) [Volume fraction] 32.4 % Critically low 36.0-48.[address] [facility] Comment on above: Performed By: #### C BC #### [facility] [address] [place] [address] Dr. Aleah Peres Hemoglobin (Bld) [Mass/Vol] 11.2 g/dL Critically low 12.0-16.[address] [facility] Comment on above: Performed By: #### C BC #### [facility] [address] [place] [address] Dr. Aleah Peres IG # 0.02 10e3/ul Normal 0.00-0.[address] [facility] Comment on above: Performed By: #### C BC #### [facility] [address] [place] [address] Dr. Aleah Peres IG % 0.3 % Normal 0.0-0.5 [facility] Comment on above: Performed By: #### C BC #### [facility] [address] [place] [address] Dr. Aleah Peres LYMPH # 2.4 103/ul Normal 1.2-3.[address] [facility] Comment on above: Performed By: #### C BC #### [facility] [address] [place] [address] Dr. Aleah Peres Lymphocytes/100 WBC (Bld) 32.3 % Normal 20.5-60.[address] [facility] Comment on above: Performed By: #### C BC #### [facility] [address] [place] [address] Dr. Aleah Peres MANUAL DIFF REQ NO Normal [facility] Comment on above: Performed By: #### C BC #### [facility] [address] [place] [address] Dr. Aleah Peres MCH (RBC) [Entitic mass] 26.9 pg Normal 26.7-34.[address] [facility] Comment on above: Performed By: #### C BC #### [facility] [address] [place] [address] Dr. Aleah Peres MCHC (RBC) [Mass/Vol] 34.6 g/dL Normal 29.9-35.[address] [facility] Comment on above: Performed By: #### C BC #### [facility] [address] [place] [address] Dr. Aleah Peres MCV (RBC) [Entitic vol] 77.9 fL Critically low 81.0-99.[address] [facility] Comment on above: Performed By: #### C BC #### [facility] [address] [place] [address] Dr. Aleah Peres MONO # 0.7 103/ul Normal 0.3-0.[address] [facility] Comment on above: Performed By: #### C BC #### [facility] [address] [place] [address] Dr. Aleah Peres Monocytes/100 WBC (Bld) 9.1 % Normal 1.7-12.[address] [facility] Comment on above: Performed By: #### C BC #### [facility] [address] [place] [address] Dr. Aleah Peres NEUT # 4.1 103/ul Normal 1.4-6.5 [facility] Comment on above: Performed By: #### C BC #### [facility] [address] [place] [address] Dr. Aleah Peres Neutrophils/100 WBC (Bld) 56.5 % Normal 43.0-75.[address] [facility] Comment on above: Performed By: #### C BC #### [facility] [address] [place] [address] Dr. Aleah Peres Platelet mean volume (Bld) [Entitic vol] 9.4 fL Critically low 9.5-13.[address] [facility] Comment on above: Performed By: #### C BC #### [facility] [address] [place] [address] Dr. Aleah Peres PLT 303 103/ul Normal 150-[address] [facility] Comment on above: Performed By: #### C BC #### [facility] [address] [place] [address] Dr. Aleah Peres RBC 4.16 106/ul Critically low 4.20-5.40 [facility] Comment on above: Performed By: #### C BC #### [facility] [address] [place] [address] Dr. Aleah Peres WBC 7.3 103/ul Normal 4.0-11.[address] [facility] Comment on above: Performed By: #### C BC #### [facility] [address] [place] [address] Dr. Aleah Peres ER URINE PROFILEon 3 Bilirubin Ql (U) Negative Normal NEGATIVE [facility] Comment on above: Performed By: #### E RUR #### [facility] [address] [place] [address] Dr. Aleah Peres Clarity (U) CLEAR Normal CLEAR [facility] Comment on above: Performed By: #### E RUR #### [facility] [address] [place] [address] Dr. Aleah Peres Color (U) YELLOW Normal YELLOW [facility] Comment on above: Performed By: #### E RUR #### [facility] [address] [place] [address] Dr. Aleah Peres ERUAHD A micrscopic examination will be performed if indicated. Normal [facility] Comment on above: Performed By: #### E RUR #### [facility] [address] [place] [address] Dr. Aleah Peres Glucose Ql (U) Negative Normal NEGATIVE [facility] Comment on above: Performed By: #### E RUR #### [facility] [address] [place] [address] Dr. Aleah Peres Hemoglobin Ql (U) Negative Normal NEGATIVE [facility] Comment on above: Performed By: #### E RUR #### [facility] [address] [place] [address] Dr. Aleah Peres Ketones Ql (U) Negative Normal NEGATIVE [facility] Comment on above: Performed By: #### E RUR #### [facility] [address] [place] [address] Dr. Aleah Peres LEUKOCYTES Negative Normal NEGATIVE [facility] Comment on above: Performed By: #### E RUR #### [facility] [address] [place] [address] Dr. Aleah Peres Nitrite Ql (U) Negative Normal NEGATIVE [facility] Comment on above: Performed By: #### E RUR #### [facility] [address] [place] [address] Dr. Aleah Peres pH (U) 6.0 [pH] Normal 5-9 [facility] Comment on above: Performed By: #### E RUR #### [facility] [address] [place] [address] Dr. Aleah Peres SPEC GRAVITY 1.020 Normal 1.005-<=1.025 [facility] Comment on above: Performed By: #### E RUR #### [facility] [address] [place] [address] Dr. Aleah Peres UA PROTEIN Negative Normal NEGATIVE/ TRACE [facility] Comment on above: Performed By: #### E RUR #### [facility] [address] [place] [address] Dr. Aleah Peres UR MICRO IND NOT INDICATED Normal [facility] Comment on above: Performed By: #### E RUR #### [facility] [address] [place] [address] Dr. Aleah Peres Urobilinogen Qn (U) 0.2 {Edmund'U}/dL Normal 0.2 - 1. 0 [facility] Comment on above: Performed By: #### E RUR #### [facility] [address] [place] [address] Dr. Aleah Peres PROF 14(COMP METB)on 023 Albumin [Mass/Vol] 3.0 g/dL Critically low 3.4-5.0 [facility] Comment on above: Performed By: #### C MP #### [facility] [address] [place] [address] Dr. Aleah Peres Albumin/Globulin [Mass ratio] 0.8 {ratio} Normal [facility] Comment on above: Performed By: #### C MP #### [facility] [address] [place] [address] Dr. Aleah Peres ALP [Catalytic activity/Vol] 52 U/L Normal 46-116 [facility] Comment on above: Performed By: #### C MP #### [facility] [address] [place] [address] Dr. Aleah Peres ALT [Catalytic activity/Vol] 15 U/L Normal 14-59 [facility] Comment on above: Performed By: #### C MP #### [facility] [address] [place] [address] Dr. Aleah Peres Anion gap [Moles/Vol] 10.2 mmol/L Normal [facility] Comment on above: Performed By: #### C MP #### [facility] [address] [address] [address] Aleah Peres AST [Catalytic activity/Vol] 13 U/L Critically low 15-37 [facility] Comment on above: Performed By: #### C MP #### [facility] [address] [place] [address] Dr. Aleah Peres Bilirubin [Mass/Vol] 0.2 mg/dL Normal 0.2-1.0 [facility] Comment on above: Performed By: #### C MP #### [facility] [address] [place] [address] Dr. Aleah Peres Calcium [Mass/Vol] 9.1 mg/dL Normal 8.5-10.1 [facility] Comment on above: Performed By: #### C MP #### [facility] [address] [place] [address] Dr. Aleah Peres Chloride [Moles/Vol] 100 mmol/L Normal 98-107 [facility] Comment on above: Performed By: #### C MP #### [facility] [address] [place] [address] Dr. Aleah Peres CO2 [Moles/Vol] 28.8 mmol/L Normal 21.0-32.0 [facility] Comment on above: Performed By: #### C MP #### [facility] [address] [place] [address] Dr. Aleah Peres Creatinine [Mass/Vol] 0.56 mg/dL Normal 0.55-1.02 [facility] Comment on above: Performed By: #### C MP #### [facility] [address] [place] [address] Dr. Aleah Peres EGFR-AF SERBIAN >60 Normal >=60 [facility] Comment on above: Performed By: #### C MP #### [facility] [address] [place] [address] Dr. Aleah Peres EGFR-NON AF SERBIAN >60 Normal >=60 [facility] Comment on above: Performed By: #### C MP #### [facility] [address] [place] [address] Dr. Aleah Peres Globulin (S) [Mass/Vol] 3.9 g/dL Normal [facility] Comment on above: Performed By: #### C MP #### [facility] [address] [place] [address] Dr. Aleah Peres Glucose [Mass/Vol] 90 mg/dL Normal 74-106 [facility] Comment on above: Performed By: #### C MP #### [facility] [address] [address] [address] Aleah Peres Potassium [Moles/Vol] 4.0 mmol/L Normal 3.5-5.1 [facility] Comment on above: Performed By: #### C MP #### [facility] [address] [address] [address] Aleah Peres Protein [Mass/Vol] 6.9 g/dL Normal 6.4-8.2 [facility] Comment on above: Performed By: #### C MP #### [facility] [address] [place] [address] Dr. Aleah Peres Sodium [Moles/Vol] 135 mmol/L Critically low 136-145 [facility] Comment on above: Performed By: #### C MP #### [facility] [address] [place] [address] Dr. Aleah Peres Urea nitrogen [Mass/Vol] 4.0 mg/dL Critically low 7.0-18.0 [facility] Comment on above: Performed By: #### C MP #### [facility] [address] [place] [address] Dr. Aleah Peres Urea nitrogen/Creatinine [Mass ratio] 7.1 mg/mg Normal [facility] Comment on above: Performed By: #### C MP #### [facility] [address] [address] [address] Aleah Peres PAP ACOG PANEL 2: 21 to 29on 08-02-2022 . . Normal [facility] Comment on above: Result Comment: Perf ormed at: WB Performed By: #### [id number] #### [facility] [address] [place] [address] Dr. Aleah Peres Age Gdln ACOG Testing 21-29 Normal [facility] Comment on above: Performed By: #### [id number] #### [facility] [address] [place] [address] Dr. Aleah Peres DIAGNOSIS: Comment Abnormal [facility] Comment on above: Result Comment: EPIT HELIAL CELL ABNORMALITY. LOW GRADE SQUAMOUS INTRAEPITHELIAL LESION (LSIL). Performed at: WB Performed By: #### [id number] #### [facility] [address] [place] [address] Dr. Aleah Peres Electronically signed by: Comment Normal [facility] Comment on above: Result Comment: Amena Arciniega MD, Pathologist Performed at: WB Performed By: #### [id number] #### [facility] [address] [place] [address] Dr. Aleah Peres Methodology: Comment Normal [facility] Comment on above: Result Comment: This liquid based ThinPrep(R) pap test was screened with the use of an image guided system. Performed at: WB Performed By: #### [id number] #### [facility] [address] [place] [address] Dr. Aleah Peres Note: Comment Normal [facility] Comment on above: Result Comment: The Pap smear is a screening test designed to aid in the detection of premalignant and malignant conditions of the uterine cervix. It is not a diagnostic procedure and should not be used as the sole means of detecting cervical cancer. Both false-positive and false-negative reports do occur. . Performed at: WB Performed By: #### [id number] #### [facility] [address] [place] [address] Dr. Aleah Peres Pathologist Provided ICD10 Comment Normal [facility] Comment on above: Result Comment: [id number] Performed at: WB Performed By: #### [id number] #### [facility] [address] [place] [address] Dr. Aleah Peres Performed by: Comment Normal [facility] Comment on above: Result Comment: Caitlyn Crenshaw, Textile Bag Sewer (ASCP) Performed at: BA Performed By: #### [id number] #### [facility] [address] [address] [address] Aleah Peres Recommendation: Comment Abnormal [facility] Comment on above: Result Comment: Sugg est follow up as clinically appropriate. Performed at: WB Performed By: #### [id number] #### [facility] [address] [address] [address] Aleah Peres Reflex Criteria: Comment Normal [facility] Comment on above: Result Comment: The HPV DNA reflex criteria were not met with this specimen result therefore, no HPV testing was performed. . Performed at: WB Performed By: #### [id number] #### [facility] [address] [address] [address] Aleah Peres Specimen adequacy: Comment Normal [facility] Comment on above: Result Comment: Sati sfactory for evaluation. Endocervical and/or squamous metaplastic cells (endocervical component) are present. Performed at: WB Performed By: #### [id number] #### [facility] [address] [address] [address] Aleah Peres Covid-19 PCR (CVDTB)on 05-25 SARS-CoV-2 (COVID-19) RNA MARY ELLEN+probe Ql (Unsp spec) Not detected Normal NOT DETECTED [facility] Comment on above: Result Comment: When [...] for this test is supported by the [employer] Box Inspector of Health and Human Service's declaration that [...] used). Performed By: #### P [id number] #### [facility] [address] [place] [address] Dr. Aleah Peres Vital Signs Date Time Vital Sign Value Performing Clinician Faci lity 08-31-2023 13:43-0500 Body mass index (BMI) [Ratio] 33.2 kg/m2 Teresita Ayesha DO Work Phone: [facility] 08-31-2023 13:43-0500 Body weight 86.36 kg Teresita Ayesha DO Work Phone: [facility] 08-31-2023 13:43-0500 Diastolic blood pressure 70 mm[Hg] Teresita Ayesha DO Work Phone: [facility] 08-31-2023 13:43-0500 Systolic blood pressure 114 mm[Hg] Teresita Ayesha DO Work Phone: [facility] Encounters Encounter Date Encounter Type Care Provider Facility Start: 10-12-2023 End: 10-12-2023 ambulatory TERESITA AYESHA Not Available Start: 09-28-2023 End: 09-28-2023 ambulatory TERESITA AYESHA Not Available Start: 09-14-2023 End: 09-14-2023 ambulatory [facility] Not Available Start: 08-31-2023 End: 08-31-2023 ambulatory TERESITA AYESHA Not Available Start: 08-31-2023 End: 08-31-2023 Office outpatient visit 15 minutes Teresita Ayesha DO Work Phone: [facility] Comment on above: [...] Start: 10-08-2022 End: 10-09-2022 ambulatory ALEXIA BARRETT Facility:[facility] Start: 10-08-2022 End: 10-08-[address] ALEXIA BARRETT . Facility: Start: 10-06-2022 End: 10-07-[address] ALEXIA BARRETT . Facility: Start: 09-17-2022 Encounter for other preprocedural examination DR TERESITA HODGE . [facility] Start: 09-15-2022 End: 09-16-2022 ambulatory TERESITA [...] Start: 07-21-2022 End: 07-21-[address] ALEXIA BARRTET . Facility: Start: 06-07-2022 End: 06-08-[address] MAGDA MARTINEZ Facility: Procedures Date Procedure Procedure Detail Performing Clinician Start: 08-31-2023 Urnls dip stick/tabl et rgnt non-auto w/o micrscp Teresita Hodge DO Work Phone: Plan of Treatment Date Care Activity Detail Author Start: 09-14-2023 End: 09-14-2023 Patient encounter procedure 09/14/2023 3:50 PM EST Routine [facility] [address] [place] [id number] Amy Dobbins PA [address] [place] [address] [facility] Payers Date Payer Category Payer Medicaid [id number] 2022 Medicaid [place] [id number] 2022-Present [address] [place] [address] [id number] 1999 Unknown [id number] [id number] 1999 Unknown [id number] 2.16.840.1.367637.3.579.2.593 1999 Unknown [id number] 2.16.840.1.334413.3.579.2.593 1999 Unknown [id number] 2.16.840.1.371825.3.579.2.593 1999 Unknown [id number] 2.16.840.1.566953.3.579.2.593 1999 Unknown [id number] 2.16.840.1.557022.3.579.2.593 1999 Unknown [id number] 2.16.840.1.251051.3.579.2.593 1999 Unknown [id number] 2.16.840.1.077989.3.579.2.593 1999 Unknown [id number] 2.16.840.1.742429.3.579.2.593 1999 Unknown [id number] 2.16.840.1.152074.3.579.2.593 1999 Unknown [id number] 2.16.840.1.104842.3.579.2.1259 1999 Unknown [id number] 2.16.840.1.463533.3.579.2.1259 1999 Unknown [id number] 2.16.840.1.527743.3.579.2.1259 1999 Unknown [id number] 2.16.840.1.211242.3.579.2.1259 1999 Unknown [id number] 2.16.840.1.933237.3.579.2.1259 1999 Unknown [id number] 2.16.840.1.922292.3.579.2.1259 1999 Unknown [id number] 2.16.840.1.391274.3.579.2.1259 1959 Unknown [id number] 1959 Unknown [id number] Social History Date Type Detail Facility Start: 04-18-2023 Tobacco smoking stat [facility] Never smoked tobacco [facility] Start: 08-31-2023 Alcohol intake Lifetime non-d enio (finding) [facility] Start: 06-13-2023 History of Social function [facility] Start: 06-13-2023 Tobacco use panel [facility] Start: 04-18-2023 Alcohol Comment caffeine: none [facility] Start: 02-17-2023 [facility] Start: 1999 Sex Assigned At Not on file [facility] History of Present illness Narrative 08-31-2023 Sharon HareWARNER - 08/31/2023 1:40 PM EST Note Date [...] nursing note reviewed. Exam conducted with a coal conveyor operator present. Vitals: Estimated body mass index is [...] Teresita Hodge DO documented in this encounter [facility] Clinical Note 09-15-2022 Note Date & Type [...] by: ASHLEY NOEL Date: 2022-09-15 07:[address] [facility] Note 09-15-2022 Note Date & Type Note Facility 09-15-2022 Note OPERATIVE NOTE OPERATION DATE: 09/15/2022 PROCEDURE: Suction D AND C. PREOPERATIVE DIAGNOSIS: First trimester missed at 10 weeks. POSTOPERATIVE DIAGNOSIS: First trimester missed at 10 weeks. ANESTHESIA: General. SURGEON: Teresita Hodge D.O. FORMER HAND: None. FINDINGS: Products of conception. SPECIMEN: Products [...] products of conception were removed using an 9-Prydeinig suction curette. Excellent hemostasis was noted. The patient tolerated the procedure well. Sponge, lap, and needle counts were correct x 2. All instruments were then removed from the patient's vagina. The patient was taken to the Recovery Room in stable condition. ?? [facility] Evaluation note Note Date & Type [...] section and content) DATE CREATED AUTHOR 10/12/2022 [facility] DATE CREATED AUTHOR AUTHOR'S ORGANIZ ATION 12/08/2022 [facility] DATE CREATED AUTHOR AUTHOR'S ORGANIZ ATION 10/14/2023 [facility] Reason for Visit (unrecogniz [...] BE BASED ON THE PRIMARY CLINICAL RECORDS. [facility] [employer] provides no warranty or guarantee of the accuracy or completeness of information in this document.
[2023-10-18 21:17] LABS: Amnisure POSITIVE (NEGATIVE)
[2023-10-18 21:22] LABS: Bilirubin Urine NEGATIVE (NEGATIVE); Blood Urine NEGATIVE (NEGATIVE); Clarity Urine CLEAR (CLEAR); Color Urine LT. YELLOW (YELLOW); Glucose Urine UA NEGATIVE (NEGATIVE); Ketones Urine NEGATIVE (NEGATIVE); Leukocyte Esterase Urine NEGATIVE (NEGATIVE); Nitrite Urine NEGATIVE (NEGATIVE); Protein Urine NEGATIVE (NEG/TRACE); Urobilinogen Urine 0.2 EU/dL (0.2-1.0)
[2023-10-18 21:23] LABS: Urine Microscopic Indicated NO
[2023-10-18] MEDS: 0.9 % SODIUM CHLORIDE 1,000 ML 125 ML IV ×2 (22:17→23:44)
[2023-10-18] MEDS: AMPICILLIN SODIUM 2,000 MG in 0.9 % SODIUM CHLORIDE 100 ML 200 MG IV (22:21)
[2023-10-18 22:39] LABS: Amphetamine Screen Urine NEGATIVE (NEGATIVE); Barbiturates Screen Urine NEGATIVE (NEGATIVE); Benzodiazepines Screen Urine NEGATIVE (NEGATIVE); Buprenorphine Screen Urine NEGATIVE (NEGATIVE); Cannabinoid Screen Urine NEGATIVE (NEGATIVE); Cocaine Screen Urine NEGATIVE (NEGATIVE); Methadone Screen Urine NEGATIVE (NEGATIVE); Methamphetamines Screen Urine NEGATIVE (NEGATIVE); Opiate Screen Urine NEGATIVE (NEGATIVE); Oxycodone Screen Urine NEGATIVE (NEGATIVE); Phencyclidine Screen Urine NEGATIVE (NEGATIVE); Tricyclic Antidepressant Urine NEGATIVE (NEGATIVE)
[2023-10-18 22:43] LABS: Hematocrit 31.9 % (36.0-48.0); Hemoglobin 10.1 g/dL (12.0-16.0); Mean Corpuscular HGB Conc 31.7 g/dL (29.9-35.2); Mean Corpuscular Hemoglobin 26.2 pg (26.7-34.0); Mean Corpuscular Volume 82.9 fL (81.0-99.0); Mean Platelet Volume 12.2 fL (9.5-13.5); Platelet Count 230 10^3/uL (150-450); Red Blood Count 3.85 10^6/uL (4.20-5.40); Red Cell Distribution Width 14.3 % (11.0-15.0); White Blood Count 10.6 10^3/uL (4.0-11.0)
[2023-10-18] MEDS: ROPIVACAINE HCL/PF 400 MG/200 ML PREMIX 6 MG EPIDURAL (23:38)
[2023-10-19] VITALS (64 sets, daily range): BP systolic 89–150; BP diastolic 54–101; PULSE 49–148; RESP 16–18; TEMP 36.1–36.7
[2023-10-19] MEDS: AMPICILLIN SODIUM 1,000 MG in 0.9 % SODIUM CHLORIDE 50 ML 100 MG IV ×2 (02:52→07:35)
[2023-10-19] MEDS: 0.9 % SODIUM CHLORIDE 1,000 ML 125 ML IV (08:42)
[2023-10-19] MEDS: OXYTOCIN/0.9 % SODIUM CHLORIDE 20 UNITS/1,000 ML PLAST..BAG 125 UNIT IV (11:57)
--- NOTE | 2023-10-19 12:13 | PM.OBPRCVD ---
Procedure Intrapartal events: None Induction method: none Delivery augmentation: pitocin Delivery monitor: external FHT and external uterine Route of delivery: Episiotomy Description: none L&D Laceration Description: periurethral - 1st degree Delivery repair: Vicryl Estimated blood loss (mL): 250 Anesthesia type: Epidural Disposition: floor Delivery date: 10/19/23 Gender: female presentation: vertex Placental delivery description: Spontaneous cord description: 3 Vessels
[2023-10-19] MEDS: LIDOCAINE HCL 1% 200 MG/20 ML MDV INJ (12:22)
[2023-10-19] MEDS: BENZOCAINE/MENTHOL 85 GRAM SPRAY BOTTLE 1 APPLIC TOPICAL (12:44)
[2023-10-19] MEDS: KETOROLAC TROMETHAMINE 30 MG/ML VIAL IVP (12:45)
[2023-10-19] MEDS: GLYCERIN/WITCH HAZEL PADS 1 PAD TOPICAL (12:45)
--- NOTE | 2023-10-19 19:25 | W.PC.ACHO ---
Registration Status: ADM IN Primary Language: Preferred Language: Malay Report given to Dinora Barahona RN at 1915. Active Medications Generic Name Dose Route Start Last Admin Trade Name Freq PRN Reason Stop Dose Admin Acetaminophen 650 mg 10/19/23 12:14 Acetaminophen 325 Mg Tablet PO Q6H PRN Mild Pain Al Hydroxide/Mg Hydroxide 2,400 mg 10/19/23 12:14 Magnesium Hydroxide 2,400 Mg/10 Ml Oral.Susp PO Q6H PRN Dyspepsia Benzocaine/Menthol 1 applic 10/19/23 12:14 10/19/23 12:44 Benzocaine/Menthol 85 Gram [place] Bottle TOPICAL 1 applic Q2H PRN Administration Pain Diphtheria/Pertussis/Tetanus Vacc 0.5 ml 10/21/23 09:00 Adacel Diph,Pertuss(Acell),Tet Vac/Pf 0.5 Ml Adult Syringe IM 10/21/23 09:01 .ONCE ONE Docusate Sodium 100 mg 10/20/23 09:00 Docusate Sodium 100 Mg Capsule PO BID BENEDICTO Sodium Chloride 1,000 mls @ 125 mls/hr 10/18/23 22:00 10/19/23 08:42 Sodium Chloride 0.9% 1,000 Ml IV 125 mls/hr .Q8H BENEDICTO Administration Ibuprofen 600 mg 10/19/23 12:14 Ibuprofen 600 Mg Tablet PO Q6H PRN Moderate Pain Measles/Mumps/Rubella Vaccine Live 0.5 ml 10/21/23 09:00 Measles,Mumps,Rubella Vacc/Pf 0.5 Ml Vial SQ 10/21/23 09:01 .ONCE ONE Methylergonovine Maleate 0.2 mg 10/18/23 21:43 Methylergonovine Maleate 0.2 Mg/Ml Ampule IM 10/20/23 12:00 ONCE PRN Uterine Contractility/Contract Methylergonovine Maleate 0.2 mg 10/18/23 21:43 Methylergonovine Maleate 0.2 Mg Tablet PO 10/20/23 12:00 Q4H PRN Uterine Contractility/Contract Misoprostol 600 mcg 10/18/23 21:43 Misoprostol 100 Mcg Tablet PO 10/20/23 12:00 ONCE PRN Uterine Bleeding Misoprostol 800 mcg 10/18/23 21:43 Misoprostol 100 Mcg Tablet SL 10/20/23 12:00 ONCE PRN Uterine Bleeding Misoprostol 1,000 mcg 10/18/23 21:43 Misoprostol 100 Mcg Tablet [place] 10/20/23 12:00 ONCE PRN Uterine Bleeding Ondansetron HCl 4 mg 10/18/23 21:43 Ondansetron Pf 4 Mg/2 Ml Vial IV Q6H PRN Nausea And Vomiting Ondansetron HCl 4 mg 10/18/23 21:43 Ondansetron 4 Mg Rapdis Tablet SL Q6H PRN Nausea And Vomiting Oxytocin 10 unit 10/18/23 21:43 Oxytocin 10 Unit/Ml Vial IM 10/19/23 20:00 ONCE PRN Bleeding Senna 17.2 mg 10/19/23 20:00 Sennosides 8.6 Mg Tablet PO QHS PRN Constipation Simethicone 80 mg 10/19/23 12:14 Simethicone 80 Mg Tab.Chew PO QID PRN Abdominal Distention Temazepam 15 mg 10/19/23 12:14 Temazepam 15 Mg Capsule PO QHS PRN Sleep Witch Donna/Glycerin 1 pad 10/19/23 12:14 10/19/23 12:45 Glycerin/Witch Donna Pads TOPICAL 1 pad Q2H PRN Administration Pain Diet Category Date Time Status Regular Consistency Diet Diet 10/19/23 12:14 Active IV Insertion/Site Date of IV Line Insertion [ 10/18/23 Short PIV (<1.75 in) 18g right Wrist] IV Insertion Time [Short PIV ( 22:00 <1.75 in) 18g right Wrist] Neurology Patient orientation (short person,place,time,situation list) Respiratory Oxygen Delivery Method Room Air Renal Bladder Pattern Continent
[2023-10-19] MEDS: IBUPROFEN 600 MG TABLET PO (20:18)
[2023-10-20] MEDS: IBUPROFEN 600 MG TABLET PO ×2 (06:00→16:31)
[2023-10-20 06:21] LABS: Basophils Percent Auto 0.3 % (0.2-2.0); Eosinophils Absolute Auto 0.1 10^3/uL (0.0-0.7); Eosinophils Percent Auto 0.6 % (0.9-7.0); Hematocrit 29.4 % (36.0-48.0); Hemoglobin 9.2 g/dL (12.0-16.0); Immature Granulocytes Abs Auto 0.05 10^3/uL (0.00-0.03); Immature Granulocytes Pct Auto 0.5 % (0.0-0.5); Lymphocytes Absolute Auto 2.4 10^3/uL (1.2-3.8); Lymphocytes Percent Auto 22.4 % (20.5-60.0); Mean Corpuscular HGB Conc 31.3 g/dL (29.9-35.2); Mean Corpuscular Hemoglobin 26.4 pg (26.7-34.0); Mean Corpuscular Volume 84.2 fL (81.0-99.0); Mean Platelet Volume 11.5 fL (9.5-13.5); Monocytes Absolute Auto 0.9 10^3/uL (0.3-0.8); Neutrophils Absolute Auto 7.4 10^3/uL (1.4-6.5); Neutrophils Percent Auto 68.2 % (43.0-75.0); Platelet Count 240 10^3/uL (150-450); Red Blood Count 3.49 10^6/uL (4.20-5.40); Red Cell Distribution Width 14.6 % (11.0-15.0); White Blood Count 10.9 10^3/uL (4.0-11.0)
[2023-10-20 07:50] VITALS: RESP 18; TEMP 36.3
[2023-10-20 07:52] VITALS: BP 123/80; PULSE 93
--- NOTE | 2023-10-20 09:03 | P.OBPN_ITS ---
OB - PN: Subj Subjective Patient comments: no complaints [place] status: doing well feeding status: exclusively Exam Constitutional Vital Signs, click to edit/add: Last Vital Signs Temp 97.3 F L 10/20/23 07:50 Pulse 93 H 10/20/23 07:52 Resp 18 10/20/23 07:50 BP 123/80 10/20/23 07:52 O2 Del Method Room Air 10/20/23 07:50 Documenting provider has reviewed patient's vital signs: yes Common normals: no apparent distress Orientation/consciousness: Yes awake, Yes oriented to person, Yes oriented to place and Yes oriented to time HENMT Common normals: normocephalic Eye Common normals: EOMs intact bilaterally General eye: normal appearance of both eyes Neck & C-Spine Common normals: full ROM Lymph Lymphatic: no lymphadenopathy noted Chest Common normals: inspection of chest normal Respiratory Common normals: normal respiratory effort Effort & inspection: able to speak in complete sentences Cardio Common normals: regular rate and regular rhythm Rate: regular rate Rhythm: regular rhythm GI Common normals: Normal to inspection, nondistended, normoactive bowel sounds present Common normals: no CVA tenderness Back & Pelvis Common normals: no CVA tenderness Extremity Common normals: normal to inspection Neuro Common normals: oriented x3 Psych Common normals: mental status grossly normal Activity/motor behavior: appropriate eye contact Results Labs Labs: Short CBC 10/20/23 Range/Units 06:00 WBC 10.9 (4.0-11.0) 10^3/uL Hgb 9.2 L (12.0-16.0) g/dL Hct 29.4 L (36.0-48.0) % Plt Count 240 (150-450) 10^3/uL OB - PN: A/P Plan - Vaginal Delivery day: 1 Plan: routine care Time Spent with Patient Time: Total time spent is greater than 50% in coordination of care (as documented) at patient's floor/unit and/or counseling patient: Total time spent with greater than 50% in coordination of care (as documented) at patient's floor/unit and/or counseling patient: less than 15 minutes
[2023-10-20 12:10] VITALS: TEMP 36.1
[2023-10-20 12:11] VITALS: BP 120/80; PULSE 86
[2023-10-20 17:30] VITALS: BP 115/73; PULSE 76; TEMP 36.8
--- NOTE | 2023-10-20 19:18 | W.PC.ACHO ---
Registration Status: ADM IN Primary Language: Preferred Language: Kazakh Active Medications Generic Name Dose Route Start Last Admin Trade Name Freq PRN Reason Stop Dose Admin Acetaminophen 650 mg 10/19/23 12:14 Acetaminophen 325 Mg Tablet PO Q6H PRN Mild Pain Al Hydroxide/Mg Hydroxide 2,400 mg 10/19/23 12:14 Magnesium Hydroxide 2,400 Mg/10 Ml Oral.Susp PO Q6H PRN Dyspepsia Benzocaine/Menthol 1 applic 10/19/23 12:14 10/19/23 12:44 Benzocaine/Menthol 85 Gram [place] Bottle TOPICAL 1 applic Q2H PRN Administration Pain Diphtheria/Pertussis/Tetanus Vacc 0.5 ml 10/21/23 09:00 Adacel Diph,Pertuss(Acell),Tet Vac/Pf 0.5 Ml Adult Syringe IM 10/21/23 09:01 .ONCE ONE Docusate Sodium 100 mg 10/20/23 09:00 10/20/23 08:38 Docusate Sodium 100 Mg Capsule PO Not Given BID BENEDICTO Sodium Chloride 1,000 mls @ 125 mls/hr 10/18/23 22:00 10/19/23 11:54 Sodium Chloride 0.9% 1,000 Ml IV 0 mls/hr .Q8H BENEDICTO Infusion Ibuprofen 600 mg 10/19/23 12:14 10/20/23 16:31 Ibuprofen 600 Mg Tablet PO 600 mg Q6H PRN Administration Moderate Pain Measles/Mumps/Rubella Vaccine Live 0.5 ml 10/21/23 09:00 Measles,Mumps,Rubella Vacc/Pf 0.5 Ml Vial SQ 10/21/23 09:01 .ONCE ONE Ondansetron HCl 4 mg 10/18/23 21:43 Ondansetron Pf 4 Mg/2 Ml Vial IV Q6H PRN Nausea And Vomiting Ondansetron HCl 4 mg 10/18/23 21:43 Ondansetron 4 Mg Rapdis Tablet SL Q6H PRN Nausea And Vomiting Senna 17.2 mg 10/19/23 20:00 Sennosides 8.6 Mg Tablet PO QHS PRN Constipation Simethicone 80 mg 10/19/23 12:14 Simethicone 80 Mg Tab.Chew PO QID PRN Abdominal Distention Temazepam 15 mg 10/19/23 12:14 Temazepam 15 Mg Capsule PO QHS PRN Sleep Witch Donna/Glycerin 1 pad 10/19/23 12:14 10/19/23 12:45 Glycerin/Witch Donna Pads TOPICAL 1 pad Q2H PRN Administration Pain IV Insertion/Site Date of IV Line Insertion [ 10/18/23 Short PIV (<1.75 in) 18g right Wrist] IV Insertion Time [Short PIV ( 22:00 <1.75 in) 18g right Wrist] Respiratory Oxygen Delivery Method Room Air Oxygen Delivery Method Room Air Oxygen Delivery Method Room Air Oxygen Delivery Method Room Air Oxygen Delivery Method Room Air Oxygen Delivery Method Room Air Oxygen Delivery Method Room Air Oxygen Delivery Method Room Air Oxygen Delivery Method Room Air Oxygen Delivery Method Room Air Cardiology Heart Sounds Strong,Regular Heart Sounds Strong,Regular Bowels Date of Last Bowel Movement 10/20/23 Date of Last Bowel Movement 10/20/23 Date of Last Bowel Movement 10/20/23 Renal Bladder Pattern Continent Bladder Pattern Continent Bladder Pattern Continent Bladder Pattern Continent Bladder Pattern Continent
[2023-10-21 01:45] VITALS: TEMP 36.4
[2023-10-21] MEDS: IBUPROFEN 600 MG TABLET PO ×2 (01:45→11:02)
[2023-10-21 01:48] VITALS: BP 126/79; PULSE 83
--- NOTE | 2023-10-21 07:41 | PM.OBPN ---
OB - PN: Subj Subjective Patient comments: no complaints and pain well controlled [place] status: doing well Exam Constitutional Vital Signs, click to edit/add: Last Vital Signs Temp 97.5 F L 10/21/23 01:45 Pulse 83 10/21/23 01:48 Resp 18 10/21/23 01:45 BP 126/79 10/21/23 01:48 O2 Del Method Room Air 10/21/23 01:45 Documenting provider has reviewed patient's vital signs: yes Common normals: no apparent distress Respiratory Common normals: clear to auscultation bilaterally Cardio Common normals: regular rate and regular rhythm GI Common normals: Normal to inspection, nondistended, normoactive bowel sounds present Extremity Common normals: no calf tenderness OB - PN: A/P Plan - Vaginal Delivery day: 2 Plan: routine care, discharge home and follow up 6 weeks Time Spent with Patient Time: Total time spent is greater than 50% in coordination of care (as documented) at patient's floor/unit and/or counseling patient: Total time spent with greater than 50% in coordination of care (as documented) at patient's floor/unit and/or counseling patient: less than 15 minutes
[2023-10-21] MEDS: DOCUSATE SODIUM 100 MG CAPSULE PO (08:38)
[2023-10-21 08:41] VITALS: BP 125/79; PULSE 80; TEMP 30.1; TEMP 35.9
== END 2023-10-21 16:00 | disposition home or self-care (01) | DRG 560 ==
PROVIDERS: Admitting Provider Obstetrics & Gynecology; Visit Provider Obstetrics & Gynecology
DX: O42.913 Preterm premature rupture of membranes, unspecified as to length of time between rupture and onset of labor, third trimester (principal); Z3A.36 36 weeks gestation of pregnancy; Z37.0 Single live birth; Z87.891 Personal history of nicotine dependence; O70.0 First degree perineal laceration during delivery
CPT/HCPCS: 36415; 51702; 59025; 59050; 59410; 80307; 81003; 84112; 85025; 85027; 86850; 86900; 86901; 96365; 96366; 96367; 96375; 96376

== ENCOUNTER 2023-10-25 10:20 | Outpatient (OUT) | payer MEDICAID, SELFPAY ==
--- OUTSIDE RECORDS SUMMARY | 2023-10-25 10:26 | XMS_ITS | CCD ---
Author Organization [facility] Care Team Providers Care Primary Care Physician Name Role Phone ALEXIA BARRETT Attending Unavailable [...] PIPPA [employer] Unavailable BRANDEN, DR MAGDA Byrant Attending Unavailable BRANDEN, DR MAGDA Bryant Admitting [...] Drug Class(es) Dates Sig (Normalized) Sig (Original) [id number] 200 actuat albuterol 0.09 mg/actuat metered dose [...] time. 0 09/21/2022 08/31/2023 Discontinued (Therapy completed) BZ-Skv-AA-[place]-3 ( Gummies/DHA & FA) 0.4-32.5 MG chewable tablet (1 source) Start: 03-03-2023 End: 08-31-2023 ZR-Enq-AY-[place]-3 ( Gummies/DHA & FA) 0.4-32.5 MG [...] UA Negative Negative - 4(70) +++ mg/dL [facility] Blood, UA Negative Negative - 50 William/mcL [facility] Clarity, UA Clear [facility] Color, UA Yellow [facility] Healthcar e Glucose, UA Negative Negative - 2000(110) ++++ mg/dL [facility] Interpretation and review of laboratory results Abnormal [facility] Ketones, UA Positive Negative - 160(16) ++++ mg/dL [facility] Leukocytes, UA Trace Negative - 500+++ Roma/mcL [facility] Nitrite, UA Negative Negative - Positive [facility] pH, UA 7.5 5 - 9 [facility] e Protein, UA Trace Negative - 2000(20) ++++ mg/dL [facility] Spec Grav, UA 1.020 1 - 1.03 [facility] Urobilinogen, UA 0.2 0.2 - 12 mg/dL [facility] Healthcar e PAP ACOG PANEL 2: 21 to 29on 11-17-2022 . . Normal [facility] Comment on above: Performed By: #### 4 [id number] #### [facility] [address] [place] [address] Dr. Aleah Peres Age Gdln ACOG Testing 21-29 [facility] Comment on above: Performed By: #### 4 [id number] #### [facility] [address] [address] [address] Aleah Peres DIAGNOSIS: Comment [facility] Comment on above: Result Comment: NEGA TIVE FOR INTRAEPITHELIAL LESION OR MALIGNANCY. Performed By: #### 4 [id number] #### [facility] [address] [address] [address] Aleah Peres Methodology: Comment [facility] Comment on above: Result Comment: This liquid based ThinPrep(R) pap test was screened with the use of an image guided system. Performed By: #### 4 [id number] #### [facility] [address] [place] [address] Dr. Aleah Peres Note: Comment Normal [facility] Comment on above: Result Comment: The Pap smear is a screening test designed to aid in the detection of premalignant and malignant conditions of the uterine cervix. It is not a diagnostic procedure and should not be used as the sole means of detecting cervical cancer. Both false-positive and false-negative reports do occur. . Performed By: #### 4 [id number] #### [facility] [address] [place] [address] Dr. Aleah Peres Performed by: Comment Normal [facility] Comment on above: Result Comment: Annelise Martinez, Explosives Handler Performed By: #### 4 [id number] #### [facility] [address] [place] [address] Dr. Aleah Peres Reflex Criteria: Comment Normal [facility] Comment on above: Result Comment: The HPV DNA reflex criteria were not met with this specimen result therefore, no HPV testing was performed. . Performed By: #### 4 [id number] #### [facility] [address] [place] [address] Dr. Aleah Peres Specimen adequacy: Comment Normal [facility] Comment on above: Result Comment: Sati sfactory for evaluation. Endocervical and/or squamous metaplastic cells (endocervical component) are present. Performed By: #### 4 [id number] #### [facility] [address] [place] [address] Dr. Aleah Peres OCC BLD IMMUNO SCREENon 04-0 OCCULT BLOOD Negative Normal NEGATIVE [facility] Comment on above: Performed By: #### O BSCRN #### [facility] [address] [place] [address] Dr. Aleah Peres SURGICAL PATH REPORTon 10-11 SURGICAL PATH REPORT [facility] Department of Pathology [address] [place] [address] Name: CAMERON HIGGINS : 2000 [employer] [id number] Number: Gender Female [facility] : n: Admit 22 years Attending ALEXIA BARRETT Age: Provider: Ordering ALEXIA BARRETT Provider: Consulti Surgical Pathology Report ng: ACCESSION: COLLECTED DATE/TIME: RECEIVED DATE/TIME: PATHOLOGIST: [id number] 10/08/2022 12:03 EDT 10/08/2022 12:03 EDT TOM AGUERO MD Final Diagnosis Report for [facility] [place] RETAINED PRODUCTS OF CONCEPTION: - CHORIONIC [...] ald 10/08/2022 Tissue pathology report for: [facility], [address] [place] [id number]; ____ Print 10/11/2022 15:01 EDT Number: Date/Time: [facility] Department of Pathology [address] [place] [phone] Name: SCOTT, CAMERON Ortega : [address] [facility] [id number] Number: Gender Female [facility] : n: Admit 22 years Attending ALEXIA BARRETT Age: Provider: Ordering ALEXIA BARRETT Provider: Consulti Surgical Pathology Report ng: ACCESSION: COLLECTED DATE/TIME: RECEIVED DATE/TIME: PATHOLOGIST: [id number] 10/08/2022 12:03 EDT 10/08/2022 12:03 EDT LACI KHAN, TOM Gross Description PATHOLOGY SERVICES PROVIDED BY [email or web address] (CLIA #[id number]) in cooperation with [facility] at [address] [place] [address] ( CLIA #[id number]) Codes CPT CODE: 26969 ____ Print 10/11/2022 15:01 EDT Number: Date/Time: Normal [facility] Comment on above: Performed By: #### 9 [id number] #### [facility] [address] [place] [address] Correction [employer] Penitentiary: Tom Aguero MD URon 10-08-2022 , QUAL Negative Normal NEGATIVE [facility] Comment on above: Performed By: #### P REGU #### [facility] [address] [place] [address] Dr. Aleah Peres US PELVIS AND TRANSVAGon [...] PIPPA ORTEGA Date: 2022-10-06 14:55 Normal [facility] SURGICAL PATH REPORTon 09-16 SURGICAL PATH REPORT [facility] Department of Pathology [address] [place] [address] Name: CHULA HIGGINS : [address] [facility] [id number] Number: Gender Female [facility] [place] : n: Admit 22 years Attending TERESITA HODGE Age: Provider: Ordering TERESITA HODGE Provider: Consulti Surgical Pathology Report ng: ACCESSION: COLLECTED DATE/TIME: RECEIVED DATE/TIME: PATHOLOGIST: [id number] 09/15/2022 12:34 EST 09/15/2022 12:34 HENRY MOREIRA MD, LUIS ERAZO Final Diagnosis Report for [employer] [place] PRODUCTS OF CONCEPTION, DILATION AND CURETTAGE: - CHORIONIC VILLI ARE PRESENT; NO SIGNIFICANT ATYPIA IS OBSERVED. - BENIGN MATERIAL DECIDUA PRESENT. - NO PARTS ARE IDENTIFIED. LUIS MOREIRA PATHOLOGIST (Electronic Signature) Date Verified 09/16/2022 LN Clinical Data PRE-OP DIAGNOSIS: Not specified POST-OP DIAGNOSIS: Missed PROCEDURES: D and C with suction SPECIMEN: Products of conception / customer care consultant Gross Description Labeled products of conception. Received in formalin in a suction sock are multiple irregular segments of medrano pink to red black soft tissue. The individual segments have a variable granular to partially smooth glistening membranous character. The specimen in total aggregate measures 12.5 x 7.5 x 4.0 cm. There are no grossly identifiable parts. Roofing Technician sections are submitted in three cassettes. MP/ald 09/15/2022 ____ Print 09/16/2022 14:53 EST Number: Date/Time: [facility] Department of Pathology [address] [place] [phone] Name: CHULA HIGGINS : [address] [facility] [id number] Number: Gender Female [facility] : n: Admit 22 years Attending TERESITA HODGE Age: Provider: Ordering TERESITA HODGE Provider: Consulti Surgical Pathology Report ng: ACCESSION: COLLECTED DATE/TIME: RECEIVED DATE/TIME: PATHOLOGIST: [id number] 09/15/2022 12:34 EST 09/15/2022 12:34 EST LILLIE KHAN, LUIS ERAZO Gross Description Tissue pathology report for: [facility], [address] [place] [address]; PATHOLOGY SERVICES PROVIDED BY [facility] , [facility] (CLIA #[id number]) in cooperation with [facility] at [address] [place] [address] ( CLIA #[id number]) Codes CPT CODE: 44531 ____ Print 09/16/2022 14:53 EST Number: Date/Time: Normal [facility] Comment on above: Performed By: #### 9 [id number] #### [facility] [address] [place] [address] Correction Officer Penitentiary: Tom Aguero MD CBC AUTO DIFFon 09-15-2022 BASO # 0.0 103/ul Normal 0.0-0.1 [facility] Comment on above: Performed By: #### C BC #### [facility] [address] [place] [address] Dr. Aleah Peres Basophils/100 WBC (Bld) 0.4 % Normal 0.2-2.0 [facility] Comment on above: Performed By: #### C BC #### [facility] [address] [place] [address] Dr. Aleah Peres EO # 0.1 103/ul Normal 0.0-0.7 [facility] Comment on above: Performed By: #### C BC #### [facility] [address] [place] [address] Dr. Aleah Peres Eosinophils/100 WBC (Bld) 1.3 % Normal 0.9-7.0 [facility] Comment on above: Performed By: #### C BC #### [facility] [address] [place] [address] Dr. Aleah Peres Erythrocyte distribution width (RBC) [Ratio] 13.8 % Normal 11.0-15.0 [facility] Comment on above: Performed By: #### C BC #### [facility] [address] [place] [address] Dr. Aleah Peres Hematocrit (Bld) [Volume fraction] 35.5 % Critically low 36.0-48.0 [facility] Comment on above: Performed By: #### C BC #### [facility] [address] [place] [address] Dr. Aleah Peres Hemoglobin (Bld) [Mass/Vol] 11.6 g/dL Critically low 12.0-16.0 [facility] Comment on above: Performed By: #### C BC #### [facility] [address] [place] [address] Dr. Aleah Peres IG # 0.03 10e3/ul Normal 0.00-0.03 [facility] Comment on above: Performed By: #### C BC #### [facility] [address] [place] [address] Dr. Aleah Peres IG % 0.4 % Normal 0.0-0.5 [facility] Comment on above: Performed By: #### C BC #### [facility] [address] [place] [address] Dr. Aleah Peres LYMPH # 2.8 103/ul Normal 1.2-3.8 [facility] Comment on above: Performed By: #### C BC #### [facility] [address] [place] [address] Dr. Aleah Peres Lymphocytes/100 WBC (Bld) 32.9 % Normal 20.5-60.0 [facility] Comment on above: Performed By: #### C BC #### [facility] [address] [place] [address] Dr. Aleah Peres MANUAL DIFF REQ NO Normal [facility] Comment on above: Performed By: #### C BC #### [facility] [address] [place] [address] Dr. Aleah Peres MCH (RBC) [Entitic mass] 26.9 pg Normal 26.7-34.0 [facility] Comment on above: Performed By: #### C BC #### [facility] [address] [place] [address] Dr. Aleah Peres MCHC (RBC) [Mass/Vol] 32.7 g/dL Normal 29.9-35.2 [facility] Comment on above: Performed By: #### C BC #### [facility] [address] [place] [address] Dr. Aleah Peres MCV (RBC) [Entitic vol] 82.4 fL Normal 81.0-99.0 [facility] Comment on above: Performed By: #### C BC #### [facility] [address] [place] [address] Dr. Aleah Peres MONO # 0.7 103/ul Normal 0.3-0.8 [facility] Comment on above: Performed By: #### C BC #### [facility] [address] [place] [address] Dr. Aleah Peres Monocytes/100 WBC (Bld) 8.6 % Normal 1.7-12.0 [facility] Comment on above: Performed By: #### C BC #### [facility] [address] [place] [address] Dr. Aleah Peres NEUT # 4.8 103/ul Normal 1.4-6.5 [facility] Comment on above: Performed By: #### C BC #### [facility] [address] [place] [address] Dr. Aleah Peres Neutrophils/100 WBC (Bld) 56.4 % Normal 43.0-75.0 [facility] Comment on above: Performed By: #### C BC #### [facility] [address] [place] [address] Dr. Aleah Peres Platelet mean volume (Bld) [Entitic vol] 9.9 fL Normal 9.5-13.5 [facility] Comment on above: Performed By: #### C BC #### [facility] [address] [place] [address] Dr. Aleah Peres PLT 316 103/ul Normal 150-450 [facility] Comment on above: Performed By: #### C BC #### [facility] [address] [place] [address] Dr. Aleah Peres RBC 4.31 106/ul Normal 4.20-5.40 [facility] Comment on above: Performed By: #### C BC #### [facility] [address] [place] [address] Dr. Aleah Peres WBC 8.4 103/ul Normal 4.0-11.0 [facility] Comment on above: Performed By: #### C BC #### [facility] [address] [place] [address] Dr. Aleah Peres PREG QUANT HCGon 09-15-2022 HCG QUANT 06030 mIU/mL Normal [facility] Comment on above: Performed By: #### P REGQNT #### [facility] [address] [place] [address] Dr. Aleah Peres HCG RANGE SEE BELOW Normal [facility] Comment on above: Result Comment: 5-50 0.2-1 WEEK 50-500 1-2 WEEKS 100-5,000 2-3 WEEKS 500-10,000 3-4 WEEKS 1,000-50,000 4-5 WEEKS 10,000-100,000 5-6 WEEKS 15,000-200,000 6-8 WEEKS 10,000-100,000 2-3 MONTHS Performed By: #### P REGQNT #### [facility] [address] [place], [place] [address] Dr. Aleah Peres TYPE AND SCREENon 09-15-2022 TYPE AND SCREEN Negative Normal [facility] Comment on above: Performed By: #### P REGQNT #### [facility] [address] [place], [place] [address] Dr. Aleah Peres US PELVISon 09-15-2022 US PELVIS EXAMINATION: US PELVIS HISTORY: Spontaneous COMPARISON: No relevant comparison available. TECHNIQUE: Transabdominal and transvaginal sonographic examination. FINDINGS: UTERUS: Small amount of fluid within endometrial cavity. No visible retained products of conception. IMPRESSION: 1. No appreciable retained products of conception within uterine cavity. Electronically authenticated by: ASHLEY NOEL Date: 2022-09-15 15:42 Normal [facility] US PREG TVon 09-13-2022 US PREG [...] Right ovary was not identified. Normal [facility] CBC AUTO DIFFon 08-16-2022 BASO # 0.0 103/ul Normal 0.0-0.1 [facility] Comment on above: Performed By: #### C BC #### [facility] [address] [address] [address] Aleah Peres Basophils/100 WBC (Bld) 0.4 % Normal 0.2-2.0 [facility] Comment on above: Performed By: #### C BC #### [facility] [address] [address] [address] Aleah Peres EO # 0.1 103/ul Normal 0.0-0.7 [facility] Comment on above: Performed By: #### C BC #### [facility] [address] [place] [address] Dr. Aleah Peres Eosinophils/100 WBC (Bld) 1.4 % Normal 0.9-7.0 [facility] Comment on above: Performed By: #### C BC #### [facility] [address] [place] [address] Dr. Aleah Peres Erythrocyte distribution width (RBC) [Ratio] 13.6 % Normal 11.0-15.0 [facility] Comment on above: Performed By: #### C BC #### [facility] [address] [place] [address] Dr. Aleah Peres Hematocrit (Bld) [Volume fraction] 32.4 % Critically low 36.0-48.0 [facility] Comment on above: Performed By: #### C BC #### [facility] [address] [place] [address] Dr. Aleah Peres Hemoglobin (Bld) [Mass/Vol] 11.2 g/dL Critically low 12.0-16.0 [facility] Comment on above: Performed By: #### C BC #### [facility] [address] [place] [address] Dr. Aleah Peres IG # 0.02 10e3/ul Normal 0.00-0.03 [facility] Comment on above: Performed By: #### C BC #### [facility] [address] [place] [address] Dr. Aleah Peres IG % 0.3 % Normal 0.0-0.5 [facility] Comment on above: Performed By: #### C BC #### [facility] [address] [place] [address] Dr. Aleah Peres LYMPH # 2.4 103/ul Normal 1.2-3.8 [facility] Comment on above: Performed By: #### C BC #### [facility] [address] [place] [address] Dr. Aleah Peres Lymphocytes/100 WBC (Bld) 32.3 % Normal 20.5-60.0 [facility] Comment on above: Performed By: #### C BC #### [facility] [address] [place] [address] Dr. Aleah Peres MANUAL DIFF REQ NO Normal [facility] Comment on above: Performed By: #### C BC #### [facility] [address] [place] [address] Dr. Aleah Peres MCH (RBC) [Entitic mass] 26.9 pg Normal 26.7-34.0 [facility] Comment on above: Performed By: #### C BC #### [facility] [address] [place] [address] Dr. Aleah Peres MCHC (RBC) [Mass/Vol] 34.6 g/dL Normal 29.9-35.2 [facility] Comment on above: Performed By: #### C BC #### [facility] [address] [place] [address] Dr. Aleah Peres MCV (RBC) [Entitic vol] 77.9 fL Critically low 81.0-99.0 [facility] Comment on above: Performed By: #### C BC #### [facility] [address] [place] [address] Dr. Aleah Peres MONO # 0.7 103/ul Normal 0.3-0.8 [facility] Comment on above: Performed By: #### C BC #### [facility] [address] [place] [address] Dr. Aleah Peres Monocytes/100 WBC (Bld) 9.1 % Normal 1.7-12.0 [facility] Comment on above: Performed By: #### C BC #### [facility] [address] [place] [address] Dr. Aleah Peres NEUT # 4.1 103/ul Normal 1.4-6.5 [facility] Comment on above: Performed By: #### C BC #### [facility] [address] [place] [address] Dr. Aleah Peres Neutrophils/100 WBC (Bld) 56.5 % Normal 43.0-75.0 [facility] Comment on above: Performed By: #### C BC #### [facility] [address] [place] [address] Dr. Aleah Peres Platelet mean volume (Bld) [Entitic vol] 9.4 fL Critically low 9.5-13.5 [facility] Comment on above: Performed By: #### C BC #### [facility] [address] [place] [address] Dr. Aleah Peres PLT 303 103/ul Normal 150-450 [facility] Comment on above: Performed By: #### C BC #### [facility] [address] [place] [address] Dr. Aleah Peres RBC 4.16 106/ul Critically low 4.20-5.40 [facility] Comment on above: Performed By: #### C BC #### [facility] [address] [place] [address] Dr. Aleah Peres WBC 7.3 103/ul Normal 4.0-11.0 [facility] Comment on above: Performed By: #### C BC #### [facility] [address] [place] [address] Dr. Aleah Peres ER URINE PROFILEon 3 Bilirubin Ql (U) Negative Normal NEGATIVE [facility] Comment on above: Performed By: #### E RUR #### [facility] [address] [place] [address] Dr. Aleah Peres Clarity (U) CLEAR Normal CLEAR [facility] Comment on above: Performed By: #### E RUR #### [facility] [address] [place] [address] Dr. Aleah Peres Color (U) YELLOW Normal YELLOW [facility] Comment on above: Performed By: #### E RUR #### [facility] [address] [place] [address] Dr. Aleah Peres ERUAHD A micrscopic examination will be performed if indicated. Normal [facility] Comment on above: Performed By: #### E RUR #### [facility] [address] [place] [address] Dr. Aleah Peres Glucose Ql (U) Negative Normal NEGATIVE [facility] Comment on above: Performed By: #### E RUR #### [facility] [address] [place] [address] Dr. Aleah Peres Hemoglobin Ql (U) Negative Normal NEGATIVE [facility] Comment on above: Performed By: #### E RUR #### [facility] [address] [place] [address] Dr. Aleah Peres Ketones Ql (U) Negative Normal NEGATIVE [facility] Comment on above: Performed By: #### E RUR #### [facility] [address] [place] [address] Dr. Aleah Peres LEUKOCYTES Negative Normal NEGATIVE [facility] Comment on above: Performed By: #### E RUR #### [facility] [address] [place] [address] Dr. Aleah Peres Nitrite Ql (U) Negative Normal NEGATIVE [facility] Comment on above: Performed By: #### E RUR #### [facility] [address] [place] [address] Dr. Aleah Peres pH (U) 6.0 [pH] Normal 5-9 [facility] Comment on above: Performed By: #### E RUR #### [facility] [address] [place] [address] Dr. Aleah Peres SPEC GRAVITY 1.020 Normal 1.005-<=1.025 [facility] Comment on above: Performed By: #### E RUR #### [facility] [address] [place] [address] Dr. Aleah Peres UA PROTEIN Negative Normal NEGATIVE/ TRACE [facility] Comment on above: Performed By: #### E RUR #### [facility] [address] [place] [address] Dr. Aleah Peres UR MICRO IND NOT INDICATED Normal [facility] Comment on above: Performed By: #### E RUR #### [facility] [address] [place] [address] Dr. Aleah Peres Urobilinogen Qn (U) 0.2 {Edmund'U}/dL Normal 0.2 - 1. 0 [facility] Comment on above: Performed By: #### E RUR #### [facility] [address] [place] [address] Dr. Aleah Peres PROF 14(COMP METB)on 023 Albumin [Mass/Vol] 3.0 g/dL Critically low 3.4-5.0 [facility] Comment on above: Performed By: #### C MP #### [facility] [address] [place] [address] Dr. Aleah Peres Albumin/Globulin [Mass ratio] 0.8 {ratio} Normal [facility] Comment on above: Performed By: #### C MP #### [facility] [address] [place] [address] Dr. Aleah Peres ALP [Catalytic activity/Vol] 52 U/L Normal 46-116 [facility] Comment on above: Performed By: #### C MP #### [facility] [address] [place] [address] Dr. Aleah Peres ALT [Catalytic activity/Vol] 15 U/L Normal 14-59 [facility] Comment on above: Performed By: #### C MP #### [facility] [address] [place] [address] Dr. Aleah Peres Anion gap [Moles/Vol] 10.2 mmol/L Normal [facility] Comment on above: Performed By: #### C MP #### [facility] [address] [address] [address] Aleah Peres AST [Catalytic activity/Vol] 13 U/L Critically low 15-37 [facility] Comment on above: Performed By: #### C MP #### [facility] [address] [place] [address] Dr. Aleah Peres Bilirubin [Mass/Vol] 0.2 mg/dL Normal 0.2-1.0 [facility] Comment on above: Performed By: #### C MP #### [facility] [address] [place] [address] Dr. Aleah Peres Calcium [Mass/Vol] 9.1 mg/dL Normal 8.5-10.1 [facility] Comment on above: Performed By: #### C MP #### [facility] [address] [place] [address] Dr. Aleah Peres Chloride [Moles/Vol] 100 mmol/L Normal 98-107 [facility] Comment on above: Performed By: #### C MP #### [facility] [address] [place] [address] Dr. Aleah Peres CO2 [Moles/Vol] 28.8 mmol/L Normal 21.0-32.0 [facility] Comment on above: Performed By: #### C MP #### [facility] [address] [place] [address] Dr. Aleah Peres Creatinine [Mass/Vol] 0.56 mg/dL Normal 0.55-1.02 [facility] Comment on above: Performed By: #### C MP #### [facility] Laboratory [address] [place] [address] Dr. Aleah Peres EGFR-AF WALLISIAN >60 Normal >=60 [facility] Comment on above: Performed By: #### C MP #### [facility] [address] [place] [address] Dr. Aleah Peres EGFR-NON AF WALLISIAN >60 Normal >=60 [facility] Comment on above: Performed By: #### C MP #### [facility] [address] [place] [address] Dr. Aleah Peres Globulin (S) [Mass/Vol] 3.9 g/dL Normal [facility] Comment on above: Performed By: #### C MP #### [facility] [address] [place] [address] Dr. Aleah Peres Glucose [Mass/Vol] 90 mg/dL Normal 74-106 [facility] Comment on above: Performed By: #### C MP #### [facility] [address] [address] [address] Aleah Peres Potassium [Moles/Vol] 4.0 mmol/L Normal 3.5-5.1 [facility] Comment on above: Performed By: #### C MP #### [facility] [address] [address] [address] Aleah Peres Protein [Mass/Vol] 6.9 g/dL Normal 6.4-8.2 [facility] Comment on above: Performed By: #### C MP #### [facility] [address] [place] [address] Dr. Aleah Peres Sodium [Moles/Vol] 135 mmol/L Critically low 136-145 [facility] Comment on above: Performed By: #### C MP #### [facility] [address] [place] [address] Dr. Aleah Peres Urea nitrogen [Mass/Vol] 4.0 mg/dL Critically low 7.0-18.0 [facility] Comment on above: Performed By: #### C MP #### [facility] [address] [place] [address] Dr. Aleah Peres Urea nitrogen/Creatinine [Mass ratio] 7.1 mg/mg Normal [facility] Comment on above: Performed By: #### C MP #### [facility] [address] [address] [address] Aleah Peres PAP ACOG PANEL 2: 21 to 29on 08-02-2022 . . Normal [facility] Comment on above: Result Comment: Perf ormed at: WB Performed By: #### [id number] #### [facility] [address] [place] [address] Dr. Aleah Peres Age Gdln ACOG Testing 21-29 Normal [facility] Comment on above: Performed By: #### [id number] #### [facility] [address] [place] [address] Dr. Aleah Peres DIAGNOSIS: Comment Abnormal [facility] Comment on above: Result Comment: EPIT HELIAL CELL ABNORMALITY. LOW GRADE SQUAMOUS INTRAEPITHELIAL LESION (LSIL). Performed at: WB Performed By: #### [id number] #### [facility] [address] [place] [address] Dr. Aleah Peres Electronically signed by: Comment Normal [facility] Comment on above: Result Comment: Amena Arciniega MD, Pathologist Performed at: WB Performed By: #### [id number] #### [facility] [address] [place] [address] Dr. Aleah Peres Methodology: Comment Normal [facility] Comment on above: Result Comment: This liquid based ThinPrep(R) pap test was screened with the use of an image guided system. Performed at: WB Performed By: #### [id number] #### [facility] [address] [place] [address] Dr. Aleah Peres Note: Comment Normal [facility] Comment on above: Result Comment: The Pap smear is a screening test designed to aid in the detection of premalignant and malignant conditions of the uterine cervix. It is not a diagnostic procedure and should not be used as the sole means of detecting cervical cancer. Both false-positive and false-negative reports do occur. . Performed at: WB Performed By: #### [id number] #### [facility] [address] [place] [address] Dr. Aleah Peres Pathologist Provided ICD10 Comment Normal [facility] Comment on above: Result Comment: [id number]. [id number] Performed at: WB Performed By: #### [id number] #### [facility] [address] [place] [address] Dr. Aleah Peres Performed by: Comment Normal [facility] Comment on above: Result Comment: Caitlyn Crenshaw, Explosives Handler (ASCP) Performed at: BA Performed By: #### [id number] #### [facility] [address] [address] [address] Aleah Peres Recommendation: Comment Abnormal [facility] Comment on above: Result Comment: Sugg est follow up as clinically appropriate. Performed at: WB Performed By: #### [id number] #### [facility] [address] [address] [address] Aleah Peres Reflex Criteria: Comment Normal [facility] Comment on above: Result Comment: The HPV DNA reflex criteria were not met with this specimen result therefore, no HPV testing was performed. . Performed at: WB Performed By: #### [id number] #### [facility] [address] [address] [address] Aleah Peres Specimen adequacy: Comment Normal [facility] Comment on above: Result Comment: Sati sfactory for evaluation. Endocervical and/or squamous metaplastic cells (endocervical component) are present. Performed at: WB Performed By: #### [id number] #### [facility] [address] [address] [address] Aleah Peres Covid-19 PCR (CVDTB)on 05-25 SARS-CoV-2 (COVID-19) RNA MARY ELLEN+probe Ql (Unsp spec) Not detected Normal NOT DETECTED [facility] Comment on above: Result Comment: When [...] for this test is supported by the Dance Coach of Health and Human Service's declaration that [...] used). Performed By: #### P REGQNT #### [facility] [address] [place] [address] Dr. Aleah Peres Vital Signs Date Time Vital Sign Value Performing Clinician Faci lity 08-31-2023 13:43-0500 Body mass index (BMI) [Ratio] 33.2 kg/m2 Teresita Ayesha DO Work Phone: [facility] 08-31-2023 13:43-0500 Body weight 86.36 kg Teresita Ayesha DO Work Phone: [facility] 08-31-2023 13:43-0500 Diastolic blood pressure 70 mm[Hg] Teresita Ayesha DO Work Phone: [facility] 08-31-2023 13:43-0500 Systolic blood pressure 114 mm[Hg] Teresita Ayesha DO Work Phone: [facility] Encounters Encounter Date Encounter Type Care Provider Facility Start: 10-12-2023 End: 10-12-2023 ambulatory TERESITA AYESHA Not Available Start: 09-28-2023 End: 09-28-2023 ambulatory TERESITA AYESHA Not Available Start: 09-14-2023 End: 09-14-2023 ambulatory [facility] Not Available Start: 08-31-2023 End: 08-31-2023 ambulatory TERESITA AYESHA Not Available Start: 08-31-2023 End: 08-31-2023 Office outpatient visit 15 minutes Teresita Ayesha DO Work Phone: [facility] Comment on above: Third [...] other preprocedural examination DR TERESITA HODGE . [facility] Start: 09-15-2022 End: 09-16-2022 ambulatory TERESITA [...] Routine [facility] [address] [place] [id number] Amy Dobbins PA [address] [place] [address] [facility] Payers Date Payer Category Payer Medicaid [id number] 2022 Medicaid [place] [employer] [id number] 2022-Present [address] [place] [address] [id number] 1999 Unknown [id number] [id number]3 1999 Unknown [id number] 2.16.840.1.559763.3.579.2.593 1999 Unknown [id number] 2.16.840.1.787905.3.579.2.593 1999 Unknown [id number] 2.16.840.1.881550.3.579.2.593 1999 Unknown [id number] 2.16.840.1.955484.3.579.2.593 1999 Unknown [id number] 2.16.840.1.253301.3.579.2.593 1999 Unknown [id number] 2.16.840.1.898497.3.579.2.593 1999 Unknown [id number] 2.16.840.1.512997.3.579.2.593 1999 Unknown [id number] 2.16.840.1.821407.3.579.2.593 1999 Unknown [id number] 2.16.840.1.402244.3.579.2.593 1999 Unknown [id number] 2.16.840.1.342252.3.579.2.1259 1999 Unknown [id number] 2.16.840.1.736223.3.579.2.1259 1999 Unknown [id number] 2.16.840.1.140713.3.579.2.1259 1999 Unknown [id number] 2.16.840.1.093332.3.579.2.1259 1999 Unknown [id number] 2.16.840.1.487676.3.579.2.1259 1999 Unknown [id number] 2.16.840.1.449493.3.579.2.1259 1999 Unknown [id number] 2.16.840.1.955948.3.579.2.1259 1959 Unknown [id number] 1959 Unknown [id number] Social History Date Type Detail Facility Start: 04-18-2023 Tobacco smoking stat [facility] Never smoked tobacco [facility] Start: [...] nursing note reviewed. Exam conducted with a park worker supervisor present. Vitals: Estimated body mass index is [...] Teresita Hodge DO documented in this encounter [facility] Clinical Note 09-15-2022 Note Date [...] by: ASHLEY NOEL Date: 2022-09-15 07:41 [facility] Clinical Note 09-15-2022 Note Date & Type Note Facility 09-15-2022 Note OPERATIVE NOTE OPERATION DATE: 09/15/2022 PROCEDURE: Suction D AND C. PREOPERATIVE DIAGNOSIS: First trimester missed at 10 weeks. POSTOPERATIVE DIAGNOSIS: First trimester missed at 10 weeks. ANESTHESIA: General. SURGEON: Teresita Hodge D.O. FOUR H CLUB AGENT: None. FINDINGS: Products of conception. SPECIMEN: Products [...] Recovery Room in stable condition. ?? [facility] Evaluation note Note Date & Type [...] section and content) DATE CREATED AUTHOR 10/12/2022 [facility] DATE CREATED AUTHOR AUTHOR'S ORGANIZ ATION 12/08/2022 [facility] DATE CREATED AUTHOR AUTHOR'S ORGANIZ ATION 10/14/2023 [facility] Reason for Visit (unrecogniz ed section and [...] BE BASED ON THE PRIMARY CLINICAL RECORDS. [facility] [employer] provides no warranty or guarantee of the accuracy or completeness of information in this document.
[2023-10-25 11:45] VITALS: BP 104/60; PULSE 78; TEMP 36.6
== END 2023-10-25 12:00 | disposition home or self-care (01) ==
LOC: FBCO 10:23
PROVIDERS: Visit Provider Obstetrics & Gynecology
DX: Z39.2 Encounter for routine postpartum follow-up (principal)

== ENCOUNTER 2024-05-22 13:34 | Emergency (ER) | payer MEDICAID, SELFPAY ==
[2024-05-22 13:40] VITALS: BP 130/83; PULSE 98; TEMP 36.8; O2SAT 99; BMI 30.6
--- NOTE | 2024-05-22 13:43 | US_ITS ---
[address] [id number] Patient Name: CHULA CHAVEZ MRN: [id number] date: 2000 Sex: F Assigned Patient Location: ER Current Patient Location: ER Accession/Order Number: [id number] Exam Date: 05/22/2024 14:00 Report Date: 05/22/2024 14:32 At the request of: SOLO FORBES Procedure: US OB transvaginal EXAMINATION: US OB transvaginal HISTORY: Cramping 7 weeks preg, r/o ectopic COMPARISON: No relevant comparison available. FINDINGS: GESTATIONAL SAC: Present and normal appearing. YOLK SAC: Present and normal appearing. POLE: Present and normal appearing. CARDIAC: Present. UTERUS: Normal size and appearance. OVARIES: Right: Normal. Left: Normal. CERVIX: 2.9 cm in length and closed. CUL-DE-SAC: Normal. OTHER: None. AGE BY LMP: 6 weeks 6 days FERN BY LMP: 01/09/2025 AGE BY US CRL: 6 weeks 5 days FERN BY US CRL: 01/10/2025 US/US OB transvaginal IMPRESSION: 1. Single live intrauterine . No findings to suggest ectopic . 2. Short cervix, 2.9 cm in length. Electronically authenticated by: ASHLEY NOEL Date: 05/22/2024 14:32
--- NOTE | 2024-05-22 13:44 | ED.ABDPAIN1 ---
HPI - Abdominal Pain General Chief Complaint: Abdominal Pain Stated Complaint: LOWER ABDOMINAL CRAMPING Time Seen by Provider: 05/22/24 13:35 Source: patient and family Mode of arrival: walk-in Limitations: no limitations History of Present Illness HPI narrative: Patient is a 23-year-old female who presents to the emergency department at 7 weeks for pelvic cramping for the last 6 days. She denies fevers, chills, nausea, vomiting. She has a 7-month-old baby at the bedside. She has had no vaginal bleeding or discharge. No urinary symptoms. She states occasionally the cramping radiates to the sides of her abdomen. She has not seen her OB yet for this . Related Data Home Medications ?Medication ?Instructions ?Recorded ?Confirmed DAILY 04/08/23 Allergies Allergy/AdvReac Type Severity Reaction Status Date / Time grass pollen Allergy Verified 10/19/23 03:30 Review of Systems ROS Constitutional Denies: fever or chills Ears, nose, mouth, and throat Denies: throat pain or nasal congestion Cardiovascular Denies: chest pain Respiratory Denies: shortness of breath Gastrointestinal Reports: abdominal pain; Denies: nausea, vomiting or diarrhea Genitourinary Reports: pelvic pain; Denies: painful urination Musculoskeletal Denies: back pain or neck pain Integumentary/Breast Denies: rash Neurological Denies: numbness in extremities or weakness in extremities Hematologic/Lymphatic Denies: easy bruising or easy bleeding PFSH PFSH Medical History (Updated 05/22/24 @ 14:50 by SHAUNA Hough) Asthma ?J45.909 - Unspecified asthma, uncomplicated (ICD-10) Surgical History (Updated 10/19/23 @ 03:31 by Dariusz James) H/O dilation and curettage ?Z98.890 - Other specified postprocedural states (ICD-10) Social History Smoking status: Current every day smoker Little interest or pleasure in doing things: not at all Feeling down, depressed, or hopeless: not at all Exam Narrative Exam Narrative: Gen.: Awake, alert, in no distress Head: Normocephalic, atraumatic ENT: Moist mucous membranes Respiratory: No respiratory distress Gastrointestinal: Abdomen is soft, nondistended and nontender to palpation Extremities: Moves extremities equally Psych: Normal mood and affect Neuro: No focal neuro deficit Skin: Warm, dry, intact Constitutional Vital Signs, click to edit/add: Last Vital Signs Temp 98.3 F 05/22/24 13:40 Pulse 98 H 05/22/24 13:40 Resp 18 05/22/24 13:40 BP 130/83 05/22/24 13:40 Pulse Ox 99 05/22/24 13:40 O2 Del Method Room Air 05/22/24 13:40 Course Vital Signs Vital signs: Vital Signs Temperature 98.3 F 05/22/24 13:40 Pulse Rate 98 H 05/22/24 13:40 Respiratory Rate 18 05/22/24 13:40 Blood Pressure 130/83 05/22/24 13:40 Pulse Oximetry 99 05/22/24 13:40 Oxygen Delivery Method Room Air 05/22/24 13:40 Temperature 98.3 F 05/22/24 13:40 Pulse Rate 98 H 05/22/24 13:40 Respiratory Rate 18 05/22/24 13:40 Blood Pressure 130/83 05/22/24 13:40 Pulse Oximetry 99 05/22/24 13:40 Oxygen Delivery Method Room Air 05/22/24 13:40 MDM - Abdominal Pain MDM Narrative Medical decision making narrative: Ultrasound with single live intrauterine gestation, no evidence of ectopic . Quantitative hCG level is 34,000, urine specimen with no evidence of UTI. Abdomen is soft and benign in the ER. Patient declined the need for Tylenol or pain medication. She was encouraged to increase fluids, follow-up with MACHINE MAINTENANCE SUPERVISOR and return to the ER if symptoms change or worsen SUPERVISED APC VISIT, PHYSICIAN ATTESTATION: Based on the medical record the care appears appropriate. ? Medical Records Attestation: I reviewed the patient's medical records. Lab Data Attestation: I reviewed the patient's lab results. Labs: Lab Results 05/22/24 Range/Units 13:55 Urine Color Lt. yellow (YELLOW) Urine Clarity Clear (CLEAR) Urine pH 7.5 (5.0-9.0) Ur Specific Percival 1.020 (1.005-1.025) Urine Protein Negative (NEG/TRACE) mg/dL Urine Glucose (UA) Negative (NEGATIVE) mg/dL Urine Ketones 15 A (NEGATIVE) mg/dL Urine Occult Blood Negative (NEGATIVE) Urine Nitrite Negative (NEGATIVE) Urine Bilirubin Negative (NEGATIVE) Urine Urobilinogen 0.2 (0.2-1.0) EU/dL Ur Leukocyte Esterase Negative (NEGATIVE) Imaging Data US - abdomen: Attestation: I have reviewed the pertinent imaging results. Radiologist's impression: ITS Impressions Transvaginal US 05/22/24 13:43 IMPRESSION: 1. Single live intrauterine . No findings to suggest ectopic . 2. Short cervix, 2.9 cm in length. Electronically authenticated by: ASHLEY NOEL Date: 05/22/2024 14:32 Discharge Plan Discharge Chief Complaint: Abdominal Pain Clinical Impression: Abdominal pain during , Intrauterine Patient Disposition: Home, Self-Care Time of Disposition Decision: 14:50 Condition: Good Prescriptions / Home Meds: No Action DAILY Print Language: Romansh Instructions: Abdominal Pain in (ED) Referrals: Andrzej Hodge DO [Physician] - 1 week Physician,Non-Staff, MD [Primary Care Provider] - 1 week
[2024-05-22 14:02] LABS: Bilirubin Urine NEGATIVE (NEGATIVE); Blood Urine NEGATIVE (NEGATIVE); Clarity Urine CLEAR (CLEAR); Color Urine LT. YELLOW (YELLOW); Glucose Urine UA NEGATIVE (NEGATIVE); Ketones Urine 15 mg/dL (NEGATIVE); Leukocyte Esterase Urine NEGATIVE (NEGATIVE); Nitrite Urine NEGATIVE (NEGATIVE); Protein Urine NEGATIVE (NEG/TRACE); Urine Microscopic Indicated NO; Urobilinogen Urine 0.2 EU/dL (0.2-1.0); pH Urine 7.5 (5.0-9.0)
[2024-05-22 14:44] LABS: HCG Quantitative 34771 mIU/mL
== END 2024-05-22 15:06 | disposition home or self-care (01) ==
PROVIDERS: Physician Assistant; Emergency Provider Emergency Medicine Emergency Medical Services
DX: O26.891 Other specified pregnancy related conditions, first trimester (principal); R10.9 Unspecified abdominal pain; O99.331 Smoking (tobacco) complicating pregnancy, first trimester; F17.200 Nicotine dependence, unspecified, uncomplicated; Z3A.01 Less than 8 weeks gestation of pregnancy
CPT/HCPCS: 36415; 76817; 81003; 84702; 99285

== ENCOUNTER 2024-06-03 11:23 | Emergency (ER) | payer MEDICAID, SELFPAY ==
[2024-06-03 11:28] VITALS: BP 141/86; PULSE 90; TEMP 37; O2SAT 96; BMI 30.2
--- OUTSIDE RECORDS SUMMARY | 2024-06-03 11:29 | XMS_ITS | CCD ---
Author Organization [facility] Care Team Providers Care Dental Hygiene Instructor Name Role Phone ALEXIA BARRETT Attending Unavailable AYESHATERESITA FRAUSTO Attending Unavailable KARASIK ., DR HALE Attending [...] Unavailable ZIEBER, DR ASHLEY Bryant Consulting Unavailable TYESHA LEAVITT Consulting Unavailable JOSE II, BERTRAM Consulting Unavailable [...] TERESITA Attending Unavailable AYESHA, TERESITA Attending Unavailable MU, Attending Unavailable PAM MENJIVAR Attending Unavailable MU, Attending Unavailable Medications Current Medications Medication Drug Class(es) Dates Sig (Normalized) Sig (Original) [id number] 200 actuat albuterol 0.09 mg/actuat metered dose inhaler (4 sources) beta2-Adrenergic Agonist albuterol HFA (Ventolin HFA) 90 mcg/act inhaler every 4 (four) hours. Active MV-Min-Fe Fum-FA-DHA (CENTRUM SPECIALIST PO) (4 sources) take 1 dose by mouth once in the morning MV-Min-Fe Fum-FA-DHA (CENTRUM SPECIALIST PO) Take 1 each by mouth in the morning. Active take 1 dose by mouth once in [...] time. 0 09/21/2022 08/31/2023 Discontinued (Therapy completed) ZX-Fto-BU-Chester-3 ( Gummies/DHA & FA) 0.4-32.5 MG chewable tablet (1 source) Start: 03-03-2023 End: 08-31-2023 NR-Nqp-OX-Chester-3 ( Gummies/DHA & FA) 0.4-32.5 MG chewable tablet Problems Active Problems Problem Classification Problem Date Documented Da te Episodic/Chronic Abdominal pain (1 source) Pelvic and perineal pain; Translations: [PELVIC AND PERINEAL PAIN] Onset: 10-15-2022 Episodic Gastrointestinal hemorrhage (4 sources) Melena; Translations: [MELENA] Onset: 10-22-2022 Episodic Menstrual disorders (6 sources) Amenorrhea; Translations: [Amenorrhea, unspecified] Onset: 10-26-2023 10-26-2023 Chronic Other complications of (5 sources) Missed ; Translations: [MISSED ] Onset: 09-15-2022 Episodic Other complications of (2 sources) Uterine contractions problem; Translations: [Other specified related conditions, unspecified trimester] 05-31-2024 Episodic Other nutritional; endocrine; and metabolic disorders (3 sources) Obesity; Translations: [Obesity, unspecified] Onset: 10-26-2023 10-26-2023 Chronic Other and delivery including normal (5 sources) Encounter for test, result positive; Translations: [Third trimester ] Onset: 09-13-2022 Episodic Other screening for suspected conditions (not mental disorders or infectious disease) (5 sources) Encounter for screening for malignant neoplasm of cervix; Translations: [ENC SCREENING MALIG NEOPLASM CERV] Onset: 07-21-2022 Episodic Residual codes; unclassified (2 sources) Gestation period, 8 weeks; Translations: [8 weeks gestation of ] 05-31-2024 Episodic Spontaneous (4 sources) Incomplete spontaneous without complication; Translations: [INCOMPL SPONT AB W/O COMPLICATION] Onset: 10-06-2022 Episodic Unclassified (3 sources) CONTACT W/AND (SUSP) EXPOS COVID-19; Translations: [CONTACT W/AND (SUSP) EXPOS COVID-19] Onset: 06-09-2022 Past or Other Problems Problem Classification Problem Date Documented Date Episodic/Chronic Cancer of cervix (7 sources) Low grade squamous intraepithelial lesion on cytologic smear of cervix (LGSIL); Translations: [Cervicovaginal cytology: Low grade squamous intraepithelial lesion] Onset: 11-10-2022 Episodic Conditions associated with dizziness or vertigo (4 sources) Dizziness and giddiness; Translations: [DIZZINESS AND GIDDINESS] Onset: 08-16-2022 Episodic Other complications of (1 source) Other specified related conditions, first trimester; Translations: [OTH SPEC PREG RELATED COND 1ST TRI] Onset: 08-17-2022 Episodic Other female genital disorders (3 sources) Disorder of female genital system; Translations: [Unspecified condition associated with female genital organs and menstrual cycle] Onset: 10-26-2023 10-26-2023 Episodic Residual codes; unclassified (1 source) Less [...] UA Negative Negative - 4(70) +++ mg/dL [facility] Blood, UA Negative Negative - 50 William/mcL [facility] Clarity, UA Clear [facility] re Color, UA Yellow [facility] Glucose, UA Negative Negative - 1999(110) ++++ mg/dL [facility] Interpretation and review of laboratory results Abnormal [facility] Ketones, UA Positive Negative - 160(16) ++++ mg/dL [facility] Leukocytes, UA Trace Negative - 500+++ Roma/mcL [facility] Nitrite, UA Negative Negative - Positive [facility] pH, UA 7.5 5 - 9 [facility] e Protein, UA Trace Negative - 1999(20) ++++ mg/dL [facility] Spec Grav, UA 1.020 1 - 1.03 [facility] care Urobilinogen, UA 0.2 0.2 - 12 mg/dL [facility] PAP ACOG PANEL 2: 21 to 29on 11-17-2022 . . Normal [facility] Comment on above: Performed By: #### [id number] #### [facility] [address] [place] [address] Dr. Aleah Peres Age Gdln ACOG Testing - [facility] Comment on above: Performed By: #### [id number] #### [facility] [address] [place] [address] Dr. Aleah Peres DIAGNOSIS: Comment [facility] Comment on above: Result Comment: NEGA TIVE FOR INTRAEPITHELIAL LESION OR MALIGNANCY. Performed By: #### [id number] #### [facility] [address] [place] [address] Dr. Aleah Peres Methodology: Comment [facility] Comment on above: Result Comment: This liquid based ThinPrep(R) pap test was screened with the use of an image guided system. Performed By: #### 4 [id number] #### [facility] [address] [place] [address] Dr. Aleah Peres Note: Comment [facility] Comment on above: Result Comment: The Pap smear is a screening test designed to aid in the detection of premalignant and malignant conditions of the uterine cervix. It is not a diagnostic procedure and should not be used as the sole means of detecting cervical cancer. Both false-positive and false-negative reports do occur. . Performed By: #### 4 [id number] #### [facility] [address] [place] [address] Dr. 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 Aleah Peres Reflex Criteria: Comment [facility] Comment on above: Result Comment: The HPV DNA reflex criteria were not met with this specimen result therefore, no HPV testing was performed. . Performed By: #### 4 [id number] #### [facility] [address] [place] [address] Dr. Aleah Peres Specimen adequacy: Comment Normal [facility] Comment on above: Result Comment: Sati sfactory for evaluation. Endocervical and/or squamous metaplastic cells (endocervical component) are present. Performed By: #### 4 [id number] #### [facility] [address] [address] [address] Aleah Peres Cytology Cervical or vaginal smear or scraping studyon 11-10-2022 [facility] OCC BLD IMMUNO SCREENon 04-0 OCCULT BLOOD Negative Normal NEGATIVE [facility] Comment on above: Performed By: #### O BSCRN #### [facility] [address] [address] [address] Aleah Peres SURGICAL PATH REPORTon 10-11 SURGICAL PATH REPORT [facility] Department of Pathology [address] [place] [address] [phone] Name: CAMERON HIGGINS : 2000 [facility] [id number] Number: Gender Female [facility] : n: Admit 22 years Attending ALEXIA BARRETT Age: Provider: Ordering ALEXIA BARRETT Provider: [facility] Report ng: ACCESSION: COLLECTED DATE/TIME: RECEIVED DATE/TIME: PATHOLOGIST: [id number] 10/08/2022 12:03 EDT 10/08/2022 12:03 EDT TOM AGUERO MD Final Diagnosis Report for [facility] [place] [place] RETAINED PRODUCTS OF CONCEPTION: - CHORIONIC [...] ald 10/08/2022 Tissue pathology report for: [facility] [address] [place] [address], [place] [address]; ____ Print 10/11/2022 15:01 EDT Number: Date/Time: [facility] Department of Pathology [address] [place] [phone] Name: CAMERON HIGGINS : 2000 [employer] [id number] Number: Gender [facility] : n: Admit 22 years Attending ALEXIA BARRETT Age: Provider: ALEXIA Yuan Provider: [facility] Report ng: ACCESSION: COLLECTED DATE/TIME: RECEIVED DATE/TIME: PATHOLOGIST: [id number] 10/08/2022 12:03 EDT 10/08/2022 12:03 EDT LACI KHAN, TOM Gross Description PATHOLOGY SERVICES PROVIDED BY [employer] (CLIA #[id number]) in cooperation with [facility] at [address] [place] [address] ( CLIA #[id number]) Codes CPT CODE: 74964 ____ Print 10/11/2022 15:01 EDT Number: Date/Time: Normal [facility] Comment on above: Performed By: #### 9 [id number] #### [facility] Services [address] [place] [address] String Top Sealer: Tom Aguero MD URon 10-08-2022 , QUAL Negative Normal NEGATIVE [facility] Comment on above: Performed By: #### P REGU #### [facility] [address] [address] [address] Aleah Peres US PELVIS AND TRANSVAGon [...] PIPPA ORTEGA Date: 2022-10-06 14:55 Normal [facility] SURGICAL PATH REPORTon 09-16 SURGICAL PATH REPORT [facility] Department of Pathology [address] [place] [phone] Name: ALEXANDRA HIGGINS : 2000 [facility] [id number] Number: [facility] : n: Admit 22 years Attending TERESITA HODGE Age: Provider: Ordering TERESITA HODGE Provider: [facility] Report ng: ACCESSION: COLLECTED DATE/TIME: RECEIVED DATE/TIME: PATHOLOGIST: [id number] 09/15/2022 12:34 EST 09/15/2022 12:34 EST LILLIE KHAN, LUIS ERAZO Final Diagnosis Report for [facility] [place] [place] PRODUCTS OF CONCEPTION, DILATION AND CURETTAGE: - CHORIONIC VILLI ARE PRESENT; NO SIGNIFICANT ATYPIA IS OBSERVED. - BENIGN MATERIAL DECIDUA PRESENT. - NO PARTS ARE IDENTIFIED. LUIS MOREIRA PATHOLOGIST (Electronic Signature) Date Verified 09/16/2022 LN Clinical Data PRE-OP DIAGNOSIS: Not specified POST-OP DIAGNOSIS: Missed PROCEDURES: D and C with suction SPECIMEN: Products of conception / hospice care sales consultant Gross Description Labeled products of conception. Received in formalin in a suction sock are multiple irregular segments of medrano pink to red black soft tissue. The individual segments have a variable granular to partially smooth glistening membranous character. The specimen in total aggregate measures 12.5 x 7.5 x 4.0 cm. There are no grossly identifiable parts. Drag Seiner sections are submitted in three cassettes. MP/ald 09/15/2022 ____ Print 09/16/2022 14:53 EST Number: Date/Time: [facility] Department of Pathology [address] [place], [place] [phone] Name: ALEXANDRA HIGGINS : 2000 [facility] [id number] Number: Gender [facility] : n: Admit 22 years Attending TERESITA HODGE Age: Provider: Ordering TERESITA HODGE Provider: [facility] Report ng: ACCESSION: COLLECTED DATE/TIME: RECEIVED DATE/TIME: PATHOLOGIST: [id number] 09/15/2022 12:34 EST 09/15/2022 12:34 EST LILLIE KHAN, LUIS ERAZO Gross Description Tissue pathology report for: [facility], [address] [place] [address]; PATHOLOGY SERVICES PROVIDED BY [employer] (CLIA #[id number]) in cooperation with [facility] at [address] [place] [address] ( CLIA #[id number]) Codes CPT CODE: 22328 ____ Print 09/16/2022 14:53 EST Number: Date/Time: Normal [facility] Comment on above: Performed By: #### [id number] #### [facility] Services [address] [place] [address] String Top Sealer: Tom Aguero MD CBC AUTO DIFFon 09-15-2022 BASO # 0.0 103/ul Normal 0.0-0.1 [facility] Comment on above: Performed By: #### C BC #### [facility] [address] [place] [address] Dr. Aleah Peres Basophils/100 WBC (Bld) 0.4 % Normal 0.2-2.0 [facility] Comment on above: Performed By: #### C BC #### [facility] [address] [place] [address] Dr. Aleah Peres EO # 0.1 103/ul Normal 0.0-0.7 [facility] Comment on above: Performed By: #### C BC #### [facility] [address] [place] [address] Dr. Aleah Peres Eosinophils/100 WBC (Bld) 1.3 % Normal 0.9-7.0 [facility] Comment on above: Performed By: #### C BC #### [facility] [address] [place] [address] Dr. Aleah Peres Erythrocyte distribution width (RBC) [Ratio] 13.8 % Normal 11.0-15.0 [facility] Comment on above: Performed By: #### C BC #### [facility] [address] [place] [address] Dr. Aleah Peres Hematocrit (Bld) [Volume fraction] 35.5 % Critically low 36.0-48.0 [facility] Comment on above: Performed By: #### C BC #### [facility] [address] [place] [address] Dr. Aleah Peres Hemoglobin (Bld) [Mass/Vol] 11.6 g/dL Critically low 12.0-16.0 [facility] Comment on above: Performed By: #### C BC #### [facility] [address] [place] [address] Dr. Aleah Peres IG # 0.03 10e3/ul Normal 0.00-0.03 [facility] Comment on above: Performed By: #### C BC #### [facility] [address] [place] [address] Dr. Aleah Peres IG % 0.4 % Normal 0.0-0.5 [facility] Comment on above: Performed By: #### C BC #### [facility] [address] [place] [address] Dr. Aleah Peres LYMPH # 2.8 103/ul Normal 1.2-3.8 [facility] Comment on above: Performed By: #### C BC #### [facility] [address] [place] [address] Dr. Aleah Peres Lymphocytes/100 WBC (Bld) 32.9 % Normal 20.5-60.0 [facility] Comment on above: Performed By: #### C BC #### [facility] [address] [place] [address] Dr. Aleah Peres MANUAL DIFF REQ NO Normal [facility] Comment on above: Performed By: #### C BC #### [facility] [address] [place] [address] Dr. Aleah Peres MCH (RBC) [Entitic mass] 26.9 pg Normal 26.7-34.0 [facility] Comment on above: Performed By: #### C BC #### [facility] [address] [address] [address] Aleah Peres MCHC (RBC) [Mass/Vol] 32.7 g/dL Normal 29.9-35.2 [facility] Comment on above: Performed By: #### C BC #### [facility] [address] [place] [address] Dr. Aleah Peres MCV (RBC) [Entitic vol] 82.4 fL Normal 81.0-99.0 [facility] Comment on above: Performed By: #### C BC #### [facility] [address] [place] [address] Dr. Aleah Peres MONO # 0.7 103/ul Normal 0.3-0.8 [facility] Comment on above: Performed By: #### C BC #### [facility] [address] [place] [address] Dr. Aleah Peres Monocytes/100 WBC (Bld) 8.6 % Normal 1.7-12.0 [facility] Comment on above: Performed By: #### C BC #### [facility] [address] [place] [address] Dr. Aleah Peres NEUT # 4.8 103/ul Normal 1.4-6.5 [facility] Comment on above: Performed By: #### C BC #### [facility] [address] [place] [address] Dr. Aleah Peres Neutrophils/100 WBC (Bld) 56.4 % Normal 43.0-75.0 [facility] Comment on above: Performed By: #### C BC #### [facility] [address] [place] [address] Dr. Aleah Peres Platelet mean volume (Bld) [Entitic vol] 9.9 fL Normal 9.5-13.5 [facility] Comment on above: Performed By: #### C BC #### [facility] [address] [place] [address] Dr. Aleah Peres PLT 316 103/ul Normal 150-450 [facility] Comment on above: Performed By: #### C BC #### [facility] [address] [address] [address] Aleah Peres RBC 4.31 106/ul Normal 4.20-5.40 [facility] Comment on above: Performed By: #### C BC #### [facility] [address] [place] [address] Dr. Aleah Peres WBC 8.4 103/ul Normal 4.0-11.0 [facility] Comment on above: Performed By: #### C BC #### [facility] [address] [place] [address] Dr. Aleah Peres PREG QUANT HCGon 09-15-2022 HCG QUANT 43476 mIU/mL Normal [facility] Comment on above: Performed By: #### P REGQNT #### [facility] [address] [place] [address] Dr. Aleah Peres HCG RANGE SEE BELOW Normal [facility] Comment on above: Result Comment: 5-50 0.2-1 WEEK 50-500 1-2 WEEKS 100-5,000 2-3 WEEKS 500-10,000 3-4 WEEKS 1,000-50,000 4-5 WEEKS 10,000-100,000 5-6 WEEKS 15,000-200,000 6-8 WEEKS 10,000-100,000 2-3 MONTHS Performed By: #### P REGQNT #### [facility] [address] [place] [address] Dr. Aleah Peres TYPE AND SCREENon 09-15-2022 TYPE AND SCREEN Negative Normal [facility] Comment on above: Performed By: #### P REGQNT #### [facility] [address] [place] [address] Dr. Aleah Peres US PELVISon 09-15-2022 US PELVIS EXAMINATION: US PELVIS HISTORY: Spontaneous COMPARISON: No relevant comparison available. TECHNIQUE: Transabdominal and transvaginal sonographic examination. FINDINGS: UTERUS: Small amount of fluid within endometrial cavity. No visible retained products of conception. IMPRESSION: 1. No appreciable retained products of conception within uterine cavity. Electronically authenticated by: ASHLEY NOEL Date: 2022-09-15 15:42 Normal [facility] US PREG TVon 09-13-2022 US PREG TV [...] Right ovary was not identified. Normal [facility] CBC AUTO DIFFon 08-16-2022 BASO # 0.0 103/ul Normal 0.0-0.1 [facility] Comment on above: Performed By: #### C BC #### [facility] [address] [address] [address] Aleah Peres Basophils/100 WBC (Bld) 0.4 % Normal 0.2-2.0 [facility] Comment on above: Performed By: #### C BC #### [facility] [address] [address] [address] Aleah Peres EO # 0.1 103/ul Normal 0.0-0.7 [facility] Comment on above: Performed By: #### C BC #### [facility] [address] [address] [address] Aleah Peres Eosinophils/100 WBC (Bld) 1.4 % Normal 0.9-7.0 [facility] Comment on above: Performed By: #### C BC #### [facility] [address] [place] [address] Dr. Aleah Peres Erythrocyte distribution width (RBC) [Ratio] 13.6 % Normal 11.0-15.0 [facility] Comment on above: Performed By: #### C BC #### [facility] [address] [place] [address] Dr. Aleah Peres Hematocrit (Bld) [Volume fraction] 32.4 % Critically low 36.0-48.0 [facility] Comment on above: Performed By: #### C BC #### [facility] [address] [place] [address] Dr. Aleah Peres Hemoglobin (Bld) [Mass/Vol] 11.2 g/dL Critically low 12.0-16.0 [facility] Comment on above: Performed By: #### C BC #### [facility] [address] [place] [address] Dr. Aleah Peres IG # 0.02 10e3/ul Normal 0.00-0.03 [facility] Comment on above: Performed By: #### C BC #### [facility] [address] [place] [address] Dr. Aleah Peres IG % 0.3 % Normal 0.0-0.5 [facility] Comment on above: Performed By: #### C BC #### [facility] [address] [place] [address] Dr. Aleah Peres LYMPH # 2.4 103/ul Normal 1.2-3.8 [facility] Comment on above: Performed By: #### C BC #### [facility] [address] [place] [address] Dr. Aleah Peres Lymphocytes/100 WBC (Bld) 32.3 % Normal 20.5-60.0 [facility] Comment on above: Performed By: #### C BC #### [facility] [address] [place] [address] Dr. Aleah Peres MANUAL DIFF REQ NO Normal [facility] Comment on above: Performed By: #### C BC #### [facility] [address] [place] [address] Dr. Aleah Peres MCH (RBC) [Entitic mass] 26.9 pg Normal 26.7-34.0 [facility] Comment on above: Performed By: #### C BC #### [facility] [address] [place] [address] Dr. Aleah Peres MCHC (RBC) [Mass/Vol] 34.6 g/dL Normal 29.9-35.2 [facility] Comment on above: Performed By: #### C BC #### [facility] [address] [place] [address] Dr. Aleah Peres MCV (RBC) [Entitic vol] 77.9 fL Critically low 81.0-99.0 [facility] Comment on above: Performed By: #### C BC #### [facility] [address] [place] [address] Dr. Aleah Peres MONO # 0.7 103/ul Normal 0.3-0.8 [facility] Comment on above: Performed By: #### C BC #### [facility] [address] [place] [address] Dr. Aleah Peres Monocytes/100 WBC (Bld) 9.1 % Normal 1.7-12.0 [facility] Comment on above: Performed By: #### C BC #### [facility] [address] [place] [address] Dr. Aleah Peres NEUT # 4.1 103/ul Normal 1.4-6.5 [facility] Comment on above: Performed By: #### C BC #### [facility] [address] [place] [address] Dr. Aleah Peres Neutrophils/100 WBC (Bld) 56.5 % Normal 43.0-75.0 [facility] Comment on above: Performed By: #### C BC #### [facility] [address] [place] [address] Dr. Aleah Peres Platelet mean volume (Bld) [Entitic vol] 9.4 fL Critically low 9.5-13.5 [facility] Comment on above: Performed By: #### C BC #### [facility] [address] [place] [address] Dr. Aleah Peres PLT 303 103/ul Normal 150-450 [facility] Comment on above: Performed By: #### C BC #### [facility] [address] [place] [address] Dr. Aleah Peres RBC 4.16 106/ul Critically low 4.20-5.40 [facility] Comment on above: Performed By: #### C BC #### [facility] [address] [place] [address] Dr. Aleah Peres WBC 7.3 103/ul Normal 4.0-11.0 [facility] Comment on above: Performed By: #### C BC #### [facility] [address] [place] [address] Dr. Aleah Peres ER URINE PROFILEon 3 Bilirubin Ql (U) Negative Normal NEGATIVE [facility] Comment on above: Performed By: #### E RUR #### [facility] [address] [place] [address] Dr. Aleah Peres Clarity (U) CLEAR Normal CLEAR [facility] Comment on above: Performed By: #### E RUR #### [facility] [facility] [address] [place] [address] Dr. Aleah Peres Color (U) YELLOW Normal YELLOW [facility] Comment on above: Performed By: #### E RUR #### [facility] [address] [place] [address] Dr. Aleah SALESJordan A micrscopic examination will be performed if indicated. Normal [facility] Comment on above: Performed By: #### E RUR #### [facility] [address] [place] [address] Dr. Aleah Peres Glucose Ql (U) Negative Normal NEGATIVE [facility] Comment on above: Performed By: #### E RUR #### [facility] [address] [place] [address] Dr. Aleah Peres Hemoglobin Ql (U) Negative Normal NEGATIVE [facility] Comment on above: Performed By: #### E RUR #### [facility] [address] [place] [address] Dr. Aleah Peres Ketones Ql (U) Negative Normal NEGATIVE [facility] Comment on above: Performed By: #### E RUR #### [facility] [address] [place] [address] Dr. Aleah Peres LEUKOCYTES Negative Normal NEGATIVE [facility] Comment on above: Performed By: #### E RUR #### [facility] [address] [place] [address] Dr. Aleah Peres Nitrite Ql (U) Negative Normal NEGATIVE [facility] Comment on above: Performed By: #### E RUR #### [facility] [address] [place] [address] Dr. Aleah Peres pH (U) 6.0 [pH] Normal 5-9 [facility] Comment on above: Performed By: #### E RUR #### [facility] [address] [place] [address] Dr. Aleah Peres SPEC GRAVITY 1.020 Normal 1.005-<=1.025 [facility] Comment on above: Performed By: #### E RUR #### [facility] [address] [place] [address] Dr. Aleah Peres UA PROTEIN Negative Normal NEGATIVE/ TRACE [facility] Comment on above: Performed By: #### E RUR #### [facility] [address] [place] [address] Dr. Aleah Peres UR MICRO IND NOT INDICATED Normal [facility] Comment on above: Performed By: #### E RUR #### [facility] [address] [place] [address] Dr. Aleah Peres Urobilinogen Qn (U) 0.2 {Edmund'U}/dL Normal 0.2 - 1. 0 [facility] Comment on above: Performed By: #### E RUR #### [facility] [address] [place] [address] Dr. Aleah Peres PROF 14(COMP METB)on 023 Albumin [Mass/Vol] 3.0 g/dL Critically low 3.4-5.0 Th e [facility] Comment on above: Performed By: #### C MP #### [facility] [address] [place] [address] Dr. Aleah Peres Albumin/Globulin [Mass ratio] 0.8 {ratio} Normal [facility] Comment on above: Performed By: #### C MP #### [facility] [address] [address] [address] Aleah Peres ALP [Catalytic activity/Vol] 52 U/L Normal 46-116 [facility] Comment on above: Performed By: #### C MP #### [facility] [address] [address] [address] Aleah Peres ALT [Catalytic activity/Vol] 15 U/L Normal 14-59 [facility] Comment on above: Performed By: #### C MP #### [facility] [address] [place] [address] Dr. Aleah Peres Anion gap [Moles/Vol] 10.2 mmol/L Normal [facility] Comment on above: Performed By: #### C MP #### [facility] [address] [place] [address] Dr. Aleah Peres AST [Catalytic activity/Vol] 13 U/L Critically low 15-37 [facility] Comment on above: Performed By: #### C MP #### [facility] [address] [place] [address] Dr. Aleah Peres Bilirubin [Mass/Vol] 0.2 mg/dL Normal 0.2-1.0 [facility] Comment on above: Performed By: #### C MP #### [facility] [address] [place] [address] Dr. Aleah Peres Calcium [Mass/Vol] 9.1 mg/dL Normal 8.5-10.1 [facility] Comment on above: Performed By: #### C MP #### [facility] [address] [place] [address] Dr. Aleah Peres Chloride [Moles/Vol] 100 mmol/L Normal 98-107 [facility] Comment on above: Performed By: #### C MP #### [facility] [address] [address] [address] Aleah Peres CO2 [Moles/Vol] 28.8 mmol/L Normal 21.0-32.0 [facility] Comment on above: Performed By: #### C MP #### [facility] [address] [address] [address] Aleah Peres Creatinine [Mass/Vol] 0.56 mg/dL Normal 0.55-1.02 [facility] Comment on above: Performed By: #### C MP #### [facility] [address] [place] [address] Dr. Aleah Peres EGFR-AF EGYPTIAN >60 Normal >=60 [facility] Comment on above: Performed By: #### C MP #### [facility] [address] [place] [address] Dr. Aleah Peres EGFR-NON AF EGYPTIAN >60 Normal >=60 [facility] Comment on above: Performed By: #### C MP #### [facility] [address] [place] [address] Dr. Aleah Peres Globulin (S) [Mass/Vol] 3.9 g/dL Normal [facility] Comment on above: Performed By: #### C MP #### [facility] [address] [place] [address] Dr. Aleah Peres Glucose [Mass/Vol] 90 mg/dL Normal 74-106 [facility] Comment on above: Performed By: #### C MP #### [facility] [address] [place] [address] Dr. Aleah Peres Potassium [Moles/Vol] 4.0 mmol/L Normal 3.5-5.1 [facility] Comment on above: Performed By: #### C MP #### [facility] [address] [place] [address] Dr. Aleah Peres Protein [Mass/Vol] 6.9 g/dL Normal 6.4-8.2 [facility] Comment on above: Performed By: #### C MP #### [facility] [address] [place] [address] Dr. Aleah Peres Sodium [Moles/Vol] 135 mmol/L Critically low 136-145 Th [facility] Comment on above: Performed By: #### C MP #### [facility] [address] [address] [address] Aleah Peres Urea nitrogen [Mass/Vol] 4.0 mg/dL Critically low 7.0-18.0 [facility] Comment on above: Performed By: #### C MP #### [facility] [address] [place] [address] Dr. Aleah Peres Urea nitrogen/Creatinine [Mass ratio] 7.1 mg/mg Normal [facility] Comment on above: Performed By: #### C MP #### [facility] [address] [place] [address] Dr. Aleah Peres PAP ACOG PANEL 2: 21 to 29on 08-02-2022 . . Normal [facility] Comment on above: Result Comment: Perf ormed at: WB Performed By: #### [id number] #### [facility] [address] [place] [address] Dr. Aleah Peres Age Gdln ACOG Testing - Normal [facility] Comment on above: Performed By: #### [id number] #### [facility] [address] [place] [address] Dr. Aleah Peres DIAGNOSIS: Comment Abnormal [facility] Comment on above: Result Comment: EPIT HELIAL CELL ABNORMALITY. LOW GRADE SQUAMOUS INTRAEPITHELIAL LESION (LSIL). Performed at: WB Performed By: #### [id number] #### [facility] [address] [place] [address] Dr. Aleah Peres Electronically signed by: Comment Normal [facility] Comment on above: Result Comment: Amena Arciniega MD, Pathologist Performed at: WB Performed By: #### [id number] #### [facility] [address] [place] [address] Dr. Aleah Peres Methodology: Comment Normal [facility] Comment on above: Result Comment: This liquid based ThinPrep(R) pap test was screened with the use of an image guided system. Performed at: WB Performed By: #### [id number] #### [facility] [address] [place] [address] Dr. Aleah Peres Note: Comment Normal [facility] Comment on above: Result Comment: The Pap smear is a screening test designed to aid in the detection of premalignant and malignant conditions of the uterine cervix. It is not a diagnostic procedure and should not be used as the sole means of detecting cervical cancer. Both false-positive and false-negative reports do occur. . Performed at: WB Performed By: #### [id number] #### [facility] [address] [place] [address] Dr. Aleah Peres Pathologist Provided ICD10 Comment Normal [facility] Comment on above: Result Comment: [id number] Performed at: WB Performed By: #### [id number] #### [facility] [address] [place] [address] Dr. Aleah Peres Performed by: Comment Normal [facility] Comment on above: Result Comment: Caitlyn Crenshaw, [employer]zing And Boring Machine Helper (ASCP) Performed at: BA Performed By: #### [id number] #### [facility] [address] [place] [address] Dr. Aleah Peres Recommendation: Comment Abnormal [facility] Comment on above: Result Comment: Sugg est follow up as clinically appropriate. Performed at: WB Performed By: #### [id number] #### [facility] [address] [place] [address] Dr. Aleah Peres Reflex Criteria: Comment Normal [facility] Comment on above: Result Comment: The HPV DNA reflex criteria were not met with this specimen result therefore, no HPV testing was performed. . Performed at: WB Performed By: #### [id number] #### [facility] [address] [place] [address] Dr. Aleah Peres Specimen adequacy: Comment Normal [facility] Comment on above: Result Comment: Sati sfactory for evaluation. Endocervical and/or squamous metaplastic cells (endocervical component) are present. Performed at: WB Performed By: #### [id number] #### [facility] [address] [place], [place] [address] Dr. Aleah Peres Covid-19 PCR (CVDTB)on 05-25 SARS-CoV-2 (COVID-19) RNA MARY ELLEN+probe Ql (Unsp spec) Not detected Normal NOT DETECTED [facility] Comment on above: Result Comment: When diagnostic [...] for this test is supported by the [place] of Health and Human Service's declaration that [...] used). Performed By: #### P REGQNT #### [facility] [id number] Aleah Peres Vital Signs Date Time Vital Sign Value Performing Clinician Nelly smith 05-31-2024 09:40-0500 Body mass index (BMI) [Ratio] 30.86 kg/m2 Amy VILLATORO Work Phone: [facility] 05-31-2024 09:40-0500 Body weight 80.29 kg Amy VILLATORO Work Phone: [facility] 05-31-2024 09:40-0500 Diastolic blood pressure 72 mm[Hg] Amy VILLATORO Work Phone: [facility] 05-31-2024 09:40-0500 Systolic blood pressure 118 mm[Hg] Amy VILLATORO Work Phone: [facility] 08-31-2023 13:43-0500 Body mass index (BMI) [Ratio] 33.2 kg/m2 Teresita Ayesha DO Work Phone: [facility] 08-31-2023 13:43-0500 Body weight 86.36 kg Teresita Ayesha DO Work Phone: [facility] 08-31-2023 13:43-0500 Diastolic blood pressure 70 mm[Hg] Teresita Ayesha DO Work Phone: [facility] 08-31-2023 13:43-0500 Systolic blood pressure 114 mm[Hg] Teresita Ayesha DO Work Phone: [facility] Encounters Encounter Date Encounter Type Care Provider Facility Start: 05-31-2024 End: 05-31-2024 Bamboo flowsheet Amy VILLATORO Work Phone: [facility] Start: 05-31-2024 End: 05-31-2024 Bamboo flowsheet Amy VILLATORO Work Phone: [facility] Start: 05-31-2024 End: 05-31-2024 ambulatory AMY DOBBINS Not Available Start: 05-31-2024 End: 05-31-2024 Office outpatient visit 15 minutes Amy VILLATORO Work Phone: [facility] Comment on above: 8 weeks gestation of ; Cramping affecting , antepartum Start: 03-06-2024 End: 03-06-2024 ambulatory PAM MENJIVAR Not Available Start: 11-30-2023 End: 11-30-2023 ambulatory MU Not Available Start: 10-12-2023 End: 10-12-2023 ambulatory TERESITA AYESHA Not Available Start: 09-28-2023 End: 09-28-2023 ambulatory TERESITA AYESHA Not Available Start: 09-14-2023 End: 09-14-2023 ambulatory AMY DOBBINS Not Available Start: 08-31-2023 End: 08-31-2023 Office outpatient visit 15 minutes Teresita Ayesha DO Work Phone: [facility] Comment on above: Third trimester preg hanh Start: 08-31-2023 End: 08-31-2023 ambulatory TERESITA AYESHA Not Available Start: 08-10-2023 End: 08-10-2023 ambulatory AMY DOBBINS Not Available Start: 07-13-2023 End: 07-13-2023 ambulatory TERESITA HODGE Not Available Start: 06-13-2023 End: 06-13-2023 ambulatory AMY KINGEY Not Available Start: 11-10-2022 End: 11-10-[address] ALEXIA BARRETT . Facility: Start: 10-22-2022 End: 10-23-2022 ambulatory NATASHA CAMARA . Facility: Start: 10-08-2022 End: 10-09-2022 ambulatory ALEXIA BARRETT Facility:[facility] Start: 10-08-2022 End: 10-08-[address] ALEXIA BARRETT . Facility: Start: 10-06-2022 End: 10-07-[address] ALEXIA BARRETT . Facility: Start: 09-17-2022 Encounter for other preprocedural examination DR TERESITA HODGE . [facility] Start: 09-15-2022 End: 09-16-2022 ambulatory TERESITA HODGE Facility:[facility] Start: 09-15-2022 End: 09-15-[address] [...] Urnls dip stick/tabl et rgnt non-auto w/o micrsclucila Hodge DO Work Phone: Start: 04-19-2023 Cytp cerv/vag auto t hin layer prep mnl screen Teresita Hodge DO Work Phone: Plan of Treatment Date Care Activity Detail Author Start: 06-07-2024 End: 06-07-2024 ambulatory 06/07/2024 1:30 PM EST Initial [facility] [address] [place] [address] [facility] Start: 06-07-2024 End: 06-07-2024 Professional / ancillary services management 06/07/2024 1:00 PM EST Ancillary Procedure [facility] [address] [place] [address] [facility] Start: 09-14-2023 End: 09-14-2023 Patient encounter procedure 09/14/2023 3:50 PM EST Routine [facility] [address] [place] [address] Amy Dobbins PA [address] [place], [place] [id number] [facility] Payers Date Payer Category Payer Medicaid [id number] 2022 Medicaid [id number] 1999 Unknown [id number] 2.16.84 0.1.791115.3.579.2.593 1999 Unknown [id number] 2.16.84 0.1.439894.3.579.2.593 1999 Unknown [id number] 2.16.84 0.1.167370.3.579.2.593 1999 Unknown [id number] 2.16.84 0.1.876970.3.579.2.593 1999 Unknown [id number] 2.16.84 0.1.122917.3.579.2.593 1999 Unknown [id number] 2.16.84 0.1.853631.3.579.2.593 1999 Unknown [id number] 2.16.84 0.1.637459.3.579.2.593 1999 Unknown [id number] 2.16.84 0.1.088777.3.579.2.593 1999 Unknown [id number] 2.16.84 0.1.680876.3.579.2.593 1999 Unknown [id number] 2.16.84 0.1.932480.3.579.2.593 1999 Unknown [id number] 2.16.84 0.1.967481.3.579.2.1259 1999 Unknown [id number] 2.16.84 0.1.541497.3.579.2.1259 1999 Unknown [id number] 2.16.84 0.1.071885.3.579.2.1259 1999 Unknown [id number] 2.16.84 0.1.465378.3.579.2.1259 1999 Unknown [id number] 2.16.84 0.1.056837.3.579.2.1259 1999 Unknown [id number] 2.16.84 0.1.879059.3.579.2.1259 1999 Unknown [id number] 2.16.84 0.1.323223.3.579.2.1259 1999 Unknown [id number] 2.16.84 0.1.933588.3.579.2.1259 1999 Unknown [id number] 2.16.840 .1.238719.3.579.2.1259 1999 Unknown [id number] 2.16.840 .1.491280.3.579.2.1259 1959 Unknown [id number] 1959 Unknown [id number] Social History Date Type Detail Facility Start: 04-18-2023 Tobacco smoking stat [facility] Never smoked tobacco [facility] Start: 08-31-2023 End: 05-31-2024 Alcohol intake Lifetime non-drinker (finding) [facility] Start: 06-13-2023 History of Social function [facility] Start: 06-13-2023 Tobacco use panel [facility] Start: 04-18-2023 Alcohol Comment caffeine: none [facility] Start: 02-17-2023 [facility] Start: 2000 Sex Assigned At Not on file [facility] History of Present illness Narrative 05-31-2024 SHAUNA Rizvi - 05/31/2024 9:10 AM EST Note Date & Type Note Facility 05-31-2024 History of Presen t illness Narrative Reason for Appointment: Patient ID: Alexandra Higgins is a 23 y.o. female who presents for Abdominal Cramping (Pt is currently @ 8 weeks. Pt complains of cramping and dehydrated w/.) Patient presents today for cramping w/early MEDICATIONS Current Outpatient Medications Medication Instructions albuterol HFA (Ventolin HFA) 90 mcg/act inhaler Every 4 hours MV-Min-Fe Fum-FA-DHA (CENTRUM SPECIALIST PO) 1 each, Oral, Daily ALLERGIES No Known Allergies PROBLEMS Active Ambulatory Problems Diagnosis Date Noted Amenorrhea 10/26/2023 Missed period 10/26/2023 Gynecological disease 10/26/2023 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 10/26/2023 Obesity 10/26/2023 Resolved Ambulatory Problems Diagnosis Date Noted No Resolved Ambulatory Problems Past Medical History: Diagnosis Date LGSIL on Pap smear of cervix 07/21/2022 HISTORY PAST MEDICAL HISTORY SOCIAL HISTORY Past Medical History: Diagnosis Date Amenorrhea LGSIL on Pap smear of cervix 07/21/202207/14 (negative0 , 07/13 (LGSIL), 11/12 (negative) Social History Tobacco Use Smoking status: Never Smokeless tobacco: Not on file Substance Use Topics Alcohol use: Never Comment: caffeine: none Drug use: Never FAMILY HISTORY Family History Problem Relation Name Age of Onset Hypertension Father Hyperlipidemia Father Hyperlipidemia Maternal Grandfather Hypertension Maternal Grandfather SURGICAL HISTORY Past Surgical History: Procedure Laterality Date BREAST BIOPSY Left 2015 DILATION AND CURETTAGE 09/15/2022 DILATION AND CURETTAGE 10/08/2022 REVIEW OF SYSTEMS Review of Systems: Review of Systems Constitutional: Negative. HENT: Negative. Eyes: Negative. Respiratory: Negative. Cardiovascular: Negative. Gastrointestinal: Negative. Genitourinary: Negative. Musculoskeletal: Negative. Skin: Negative. Neurological: Negative. All other systems reviewed and are negative. Hematological: Negative. Endocrine: Negative. Allergic/Immunologic: Negative. OBJECTIVE Objective: Physical Exam Constitutional: Appearance: Normal appearance. She is normal weight. HENT: Head: Normocephalic. Cardiovascular: Rate and Rhythm: Normal rate. Pulses: Normal pulses. Pulmonary: Effort: Pulmonary effort is normal. Breath sounds: Normal breath sounds. Abdominal: Palpations: Abdomen is soft. Musculoskeletal: General: Normal range of motion. Neurological: General: No focal deficit present. Mental Status: She is alert and oriented to person, place, and time. Psychiatric: Mood and Affect: Mood normal. Behavior: Behavior normal. Thought Content: Thought content normal. Judgment: Judgment normal. Vitals and nursing note reviewed. Vitals: Estimated body mass index is 34.72 kg/m as calculated from the following: Height as of 11/10/22: 5' 3.5 . Weight as of 10/12/23: 199 lb 1.9 oz. BP: No LMP recorded. ASSESSMENT & PLAN ICD-10-CM 1. 8 weeks gestation of Z3A.08 2. Cramping affecting , antepartum O26.899 R10.9 Pt complaining of cramping w/early and some dehydration. Pt is currently @ 8 weeks . Patient doing well. She was seen in the ER and US and labs reviewed. Patient states she just wants some reassurance. She denies vaginal bleeding, states some mild discharge. Pt doing well, she has intake next week and will have another US at that time. Documented by Karen Zepeda MA on behalf of: SHAUNA Rizvi documented in this encounter [facility] History of Present illness Narrative 08-31-2023 Sharon HareWARNER - 08/31/2023 1:40 PM EST Note Date & Type Note Facility 08-31-2023 History of Presen t illness Narrative Reason for Appointment: Patient ID: Dashawnoun Ronaldo is a 23 y.o. female who presents [...] nursing note reviewed. Exam conducted with a owner professional engineer present. Vitals: Estimated body mass index is [...] Teresita Hodge DO documented in this encounter [facility] Clinical Note 09-15-2022 Note Date & [...] authenticated by: ASHLEY NOEL Date: 2022-09-15 07:41 [facility] Clinical Note 09-15-2022 Note Date & Type Note Facility 09-15-2022 Note OPERATIVE NOTE OPERATION DATE: 09/15/2022 PROCEDURE: Suction D AND C. PREOPERATIVE DIAGNOSIS: First trimester missed at 10 weeks. POSTOPERATIVE DIAGNOSIS: First trimester missed at 10 weeks. ANESTHESIA: General. SURGEON: Teresita Hodge D.O. WAREHOUSE PACKAGING SUPERVISOR: None. FINDINGS: Products of conception. SPECIMEN: Products [...] products of conception were removed using an 9-Macedonian suction curette. Excellent hemostasis was noted. The patient tolerated the procedure well. Sponge, lap, and needle counts were correct x 2. All instruments were then removed from the patient's vagina. The patient was taken to the Recovery Room in stable condition. ?? [facility] Evaluation note Note Date & Type Note Facility Evaluation note Diagnosis Third trimester state, incidental documented in this encounter [facility] Evaluation note Note Date & Type Note Facility Evaluation note Diagnosis 8 weeks gestation of Cramping affecting , antepartum documented in this encounter [facility] Summary Purpose Family History No Family History Records FoundNo Family History Records FoundNo Family History Records Found Advance Directives No Advanced Directives Records FoundNo Advanced Directives Records FoundNo Advanced Directives Records Found Additional Source Comments INFORMATION SOURCE (unrecogn ized section and content) DATE CREATED AUTHOR 10/12/2022 [facility] DATE CREATED AUTHOR AUTHOR'S ORGANIZ ATION 12/08/2022 [facility] DATE CREATED AUTHOR AUTHOR'S ORGANIZ ATION 06/02/2024 [facility] Special[facility] EPIC Reason for Visit (unrecogniz ed section and content) Reason Comments Routine Visit Reason Comments Abdominal Cramping Pt is currently preg nant @ 8 weeks. Pt complains of cramping and dehydrated w/. FOR RECORDS PERTAINING TO PATIENTS WHO ARE [...] BE BASED ON THE PRIMARY CLINICAL RECORDS. [facility] [employer] provides no warranty or guarantee of the accuracy or completeness of information in this document.
[2024-06-03 12:15] LABS: Bilirubin Urine NEGATIVE (NEGATIVE); Blood Urine NEGATIVE (NEGATIVE); Clarity Urine CLEAR (CLEAR); Color Urine LT. YELLOW (YELLOW); Glucose Urine UA NEGATIVE (NEGATIVE); Ketones Urine NEGATIVE (NEGATIVE); Leukocyte Esterase Urine NEGATIVE (NEGATIVE); Nitrite Urine NEGATIVE (NEGATIVE); Protein Urine NEGATIVE (NEG/TRACE); Specific Gravity Urine 1.015 (1.005-1.025); Urobilinogen Urine 0.2 EU/dL (0.2-1.0); pH Urine 8.5 (5.0-9.0)
[2024-06-03 12:18] LABS: Urine Microscopic Indicated NO
--- NOTE | 2024-06-03 14:13 | ED_ITS ---
HPI - General Chief complaint: OB/Uterine Contractions Stated complaint: 8 WEEKS CONCERNED W SOME BLEEDING Time Seen by Provider: 06/03/24 11:38 Source: patient Mode of arrival: walk-in History of Present Illness HPI Narrative: The patient 23-year-old female who is 8 weeks this is her third she is 3 para 1 aborta 1, the patient is coming to us after she noticed this morning some blood when she was wiping after urinating Patient denies any abdominal pain nausea vomiting or any other concerns she did have some abdominal cramping some time but she was told that that was normal last time she had a OB visit Related Data Home Medications ?Medication ?Instructions ?Recorded ?Confirmed DAILY 04/08/23 Allergies Allergy/AdvReac Type Severity Reaction Status Date / Time grass pollen Allergy Verified 10/19/23 03:30 Review of Systems ROS Status of ROS 10 or more systems reviewed and unremark able except as noted in history and below PFSH PFS Medical History (Updated 06/03/24 @ 12:01 by Antonette Allen MD) Asthma ?J45.909 - Unspecified asthma, uncomplicated (ICD-10) Surgical History (Updated 10/19/23 @ 03:31 by Dariusz James) H/O dilation and curettage ?Z98.890 - Other specified postprocedural states (ICD-10) Social History Smoking status: Current every day smoker Little interest or pleasure in doing things: not at all Feeling down, depressed, or hopeless: not at all Exam Narrative Exam Narrative: Nurses notes and vital signs reviewed and patient is not hypoxic. General: Well-appearing and in no apparent distress. Skin: Warm, dry, no pallor noted. No rash. Head: Normocephalic, atraumatic. Neck: Supple, non-tender. Eye: Pupils are equal, round and EOMI. No scleral icterus. Ears, Nose, Mouth, and Throat: TM are clear, no nasal mucosal hypertrophy. Oral mucosa is moist, no posterior oropharynx erythema, uvula is mid-line Cardiovascular: Regular Rate and Rhythm without murmur, gallop or rub. Respiratory: No accessory muscle use or respiratory distress. Lungs are clear to auscultation, no wheezing, rales or rhonchi Chest Wall: no tenderness Back: No midline thoracic or lumbar vertebral tenderness. No CVA tenderness Musculoskeletal: normal ROM, no calf or popliteal tenderness, no lower extremity edema/swelling GI: Abdomen is soft, non-distended. Normal bowel sounds. No masses appreciated. No tenderness to palpation. No rebound, guarding, or rigidity noted. Neurological: A&O x4. No cranial nerve dysfunction observed. No truncal ataxia. Moves all extremities. Sensation intact. Psychiatric: Cooperative and interactive. Normal mood and affect. Constitutional Vital Signs, click to edit/add: Last Vital Signs Temp 98.6 F 06/03/24 11:28 Pulse 90 06/03/24 11:28 Resp 18 06/03/24 11:28 BP 141/86 06/03/24 11:28 Pulse Ox 96 06/03/24 11:28 O2 Del Method Room Air 06/03/24 11:28 Course Vital Signs Vital signs: Vital Signs Temperature 98.6 F 06/03/24 11:28 Pulse Rate 90 06/03/24 11:28 Respiratory Rate 18 06/03/24 11:28 Blood Pressure 141/86 06/03/24 11:28 Pulse Oximetry 96 06/03/24 11:28 Oxygen Delivery Method Room Air 06/03/24 11:28 Temperature 98.6 F 06/03/24 11:28 Pulse Rate 90 06/03/24 11:28 Respiratory Rate 18 06/03/24 11:28 Blood Pressure 141/86 06/03/24 11:28 Pulse Oximetry 96 06/03/24 11:28 Oxygen Delivery Method Room Air 06/03/24 11:28 MDM - OB/Uterine Contractions MDM Narrative Medical decision making narrative: The patient had presented to us with 8 weeks with very minimal bleeding that happened only 1 time She was worried because she had a Doppler that she bought from [employer] and she thinks that it was showing up heartbeat before and now is not and I did explain to her that right now after the patient only have 8 weeks . Her would not show a dopplerable heart rate at this moment at the need to be more than 10 weeks I did also explain to her that I would understand that she would need a confirmation that the is okay as the mother but since the patient right now does not have any indication for me to call the word processor technician to do pelvic ultrasound specially with the patient already had the ultrasound done almost 10 days ago showing intrauterine The patient is O+ and she does not need any further treatment at the moment except for monitoring The patient is to follow up with primary care physician in next 2-3 days or to return to the emergency department should any of the signs or symptoms worsen or new symptoms develop. The patient agrees with the following Diagnosis and Treatment plan and the patient will be discharged home. Lab Data Labs: Lab Results 06/03/24 Range/Units 11:31 Urine Color Lt. yellow (YELLOW) Urine Clarity Clear (CLEAR) Urine pH 8.5 (5.0-9.0) Ur Specific [place] 1.015 (1.005-1.025) Urine Protein Negative (NEG/TRACE) mg/dL Urine Glucose (UA) Negative (NEGATIVE) mg/dL Urine Ketones Negative (NEGATIVE) mg/dL Urine Occult Blood Negative (NEGATIVE) Urine Nitrite Negative (NEGATIVE) Urine Bilirubin Negative (NEGATIVE) Urine Urobilinogen 0.2 (0.2-1.0) EU/dL Ur Leukocyte Esterase Negative (NEGATIVE) Discharge Plan Discharge Chief Complaint: OB/Uterine Contractions Clinical Impression: Bleeding in early Patient Disposition: Home, Self-Care Time of Disposition Decision: 12:01 Condition: Good Prescriptions / Home Meds: No Action DAILY Print Language: Persian Instructions: Threatened Miscarriage (ED), Subchorionic Hemorrhage (ED) Referrals: Physician,Non-Staff, [Primary Care Provider] - 1 week Discharge Date/Time: 06/03/24 12:06
== END 2024-06-03 12:06 | disposition home or self-care (01) ==
PROVIDERS: Emergency Provider Emergency Medicine
DX: O20.9 Hemorrhage in early pregnancy, unspecified (principal); O99.331 Smoking (tobacco) complicating pregnancy, first trimester; F17.200 Nicotine dependence, unspecified, uncomplicated; Z3A.08 8 weeks gestation of pregnancy
CPT/HCPCS: 81003; 99283

== ENCOUNTER 2024-06-14 12:25 | Outpatient (OUT) | payer MEDICAID, SELFPAY ==
--- OUTSIDE RECORDS SUMMARY | 2024-06-14 12:32 | XMS_ITS | CCD ---
Author Organization [facility] Care Team Providers Care Customer Marketing Assistant Name Role Phone ALEXIA BARRETT Attending Unavailable TERESITA HODGE Attending Unavailable KARASIK ., DR HALE Attending [...] Unavaila ble Unavailable Primary Care Provider Unavailcaitlyn kraus MU, Attending Unavailable AYESHA, TERESITA Attending Unavailable MU, Attending Unavailable MU, Attending Unavailable AYESHA, TERESITA Attending Unavailable AYESHA, TERESITA Attending Unavailable AYESHA, TERESITA Attending Unavailable MU, Attending Unavailable PAM MENJIVAR Attending Unavailable MU, Attending Unavailable Medications Current Medications Medication Drug Class(es) Dates Sig (Normalized) Sig (Original) [id number] 200 actuat albuterol 0.09 mg/actuat metered dose [...] time. 0 09/21/2022 08/31/2023 Discontinued (Therapy completed) ZV-Bml-JQ-[place]-3 ( Gummies/DHA & FA) 0.4-32.5 MG chewable tablet (1 source) Start: 03-03-2023 End: 08-31-2023 UH-Pmj-PY-[place]-3 ( Gummies/DHA & FA) 0.4-32.5 MG chewable [...] UA Negative Negative - 4(70) +++ mg/dL [facility] Blood, UA Negative Negative - 50 William/mcL [facility] Clarity, UA Clear [facility] re Color, UA Yellow [facility] Glucose, UA Negative Negative - 1999(110) ++++ mg/dL [facility] Interpretation and review of laboratory results Abnormal [facility] Ketones, UA Positive Negative - 160(16) ++++ mg/dL [facility] Leukocytes, UA Trace Negative - 500+++ Roma/mcL [facility] Nitrite, UA Negative Negative - Positive [facility] pH, UA 7.5 5 - 9 [facility] e Protein, UA Trace Negative - 1999(20) ++++ mg/dL [facility] Spec Grav, UA 1.020 1 - 1.03 [facility] care Urobilinogen, UA 0.2 0.2 - 12 mg/dL [facility] PAP ACOG PANEL 2: 21 to 29on 11-17-2022 . . Normal [facility] Comment on above: Performed By: #### 4 [id number] #### [facility] [address] [place] [address] Dr. Aleah Peres Age Gdln ACOG Testing 21-29 [facility] Comment on above: Performed By: #### 4 [id number] #### [facility] [address] [place] [address] Dr. Aleah Peres DIAGNOSIS: Comment [facility] Comment on above: Result Comment: NEGA TIVE FOR INTRAEPITHELIAL LESION OR MALIGNANCY. Performed By: #### 4 [id number] #### [facility] [address] [place] [address] Dr. Aleah Peres Methodology: Comment [facility] Comment on above: Result Comment: This liquid based ThinPrep(R) pap test was screened with the use of an image guided system. Performed By: #### 4 [id number] #### [facility] [address] [place] [address] Dr. Aleah Peres Note: Comment [facility] Comment on above: Result Comment: The Pap smear is a screening test designed to aid in the detection of premalignant and malignant conditions of the uterine cervix. It is not a diagnostic procedure and should not be used as the sole means of detecting cervical cancer. Both false-positive and false-negative reports do occur. . Performed By: #### 4 [id number] #### [facility] [address] [place] [address] Dr. Aleah Peres Performed by: Comment Normal [facility] Comment on above: Result Comment: Annelise Martinez Pit Clerk Performed By: #### 4 [id number] #### [facility] [address] [place] [address] Dr. Aleah Peres Reflex Criteria: Comment [facility] Comment on above: Result Comment: The HPV DNA reflex criteria were not met with this specimen result therefore, no HPV testing was performed. . Performed By: #### 4 [id number] #### [facility] [address] [address] [address] Aleah Peres Specimen adequacy: Comment Normal [facility] Comment on above: Result Comment: Sati sfactory for evaluation. Endocervical and/or squamous metaplastic cells (endocervical component) are present. Performed By: #### 4 [id number] #### [facility] [address] [address] [address] Aleah Peres Cytology Cervical or vaginal smear or scraping studyon 11-10-2022 [facility] OCC BLD IMMUNO SCREENon 04-0 OCCULT BLOOD Negative Normal NEGATIVE [facility] Comment on above: Performed By: #### O BSCRN #### [facility] [address] [address] [address] Aleah Peres SURGICAL PATH REPORTon 10-11 SURGICAL PATH REPORT [facility] Department of Pathology [address] [place] [phone] Name: CAMERON HIGGINS : 2000 [facility] [id number] Number: Gender Female [facility] : n: Admit 22 years Attending ALEXIA BARRETT Age: Provider: Ordering ALEXIA BARRETT Provider: Consulti Surgical Pathology Report ng: ACCESSION: COLLECTED DATE/TIME: RECEIVED DATE/TIME: PATHOLOGIST: [id number] 10/08/2022 12:03 EDT 10/08/2022 12:03 EDT TOM AGUERO MD Final Diagnosis Report for [facility] [place] RETAINED PRODUCTS OF CONCEPTION: - CHORIONIC [...] ald 10/08/2022 Tissue pathology report for: [facility], [address] [place] [address], [place] [address]; ____ Print 10/11/2022 15:01 EDT Number: Date/Time: [facility] Department of Pathology [address] [place] [phone] Name: CAMERON HIGGINS : 2000 [facility] [id number] Number: Gender Female [facility] : n: Admit 22 years Attending ALEXIA BARRETT Age: Provider: Ordering ALEXIA BARRETT Provider: [facility] Surgical Pathology Report ng: ACCESSION: COLLECTED DATE/TIME: RECEIVED DATE/TIME: PATHOLOGIST: [id number] 10/08/2022 12:03 EDT 10/08/2022 12:03 EDT LACI KHAN, TOM Gross Description PATHOLOGY SERVICES PROVIDED BY [facility] (CLIA #[id number]) in cooperation with [facility] at [address] [place] [address] ( CLIA #[id number]) Codes CPT CODE: 15629 ____ Print 10/11/2022 15:01 EDT Number: Date/Time: [facility] Comment on above: Performed By: #### 9 [id number] #### [facility] Laboratory Services [address] [place] [address] Patient Accounts Specialist: Tom Aguero MD URon 10-08-2022 , QUAL Negative Normal NEGATIVE [facility] Comment on above: Performed By: #### P REGU #### [facility] [address] [address] [address] Aleah Peres US PELVIS AND TRANSVAGon [...] PIPPA ORTEGA Date: 2022-10-06 14:55 Normal [facility] SURGICAL PATH REPORTon 09-16 SURGICAL PATH REPORT [facility] Department of Pathology [address] [place] [phone] Name: ALEXANDRA HIGGINS : 2000 [facility] [id number] Number: [facility] : n: Admit 22 years Attending TERESITA HODGE Age: Provider: Ordering TERESITA HODGE Provider: Consulti Surgical Pathology Report ng: ACCESSION: COLLECTED DATE/TIME: RECEIVED DATE/TIME: PATHOLOGIST: [id number] 09/15/2022 12:34 EST 09/15/2022 12:34 EST LILLIE KHAN, LUIS ERAZO Final Diagnosis Report for [facility] [place] PRODUCTS OF CONCEPTION, DILATION AND CURETTAGE: - CHORIONIC VILLI ARE PRESENT; NO SIGNIFICANT ATYPIA IS OBSERVED. - BENIGN MATERIAL DECIDUA PRESENT. - NO PARTS ARE IDENTIFIED. LUIS MOREIRA PATHOLOGIST (Electronic Signature) Date Verified 09/16/2022 LN Clinical Data PRE-OP DIAGNOSIS: Not specified POST-OP DIAGNOSIS: Missed PROCEDURES: D and C with suction SPECIMEN: Products of conception / home care coordinator Gross Description Labeled products of conception. Received in formalin in a suction sock are multiple irregular segments of medrano pink to red black soft tissue. The individual segments have a variable granular to partially smooth glistening membranous character. The specimen in total aggregate measures 12.5 x 7.5 x 4.0 cm. There are no grossly identifiable parts. Cherry Sorter sections are submitted in three cassettes. MP/ald 09/15/2022 ____ Print 09/16/2022 14:53 EST Number: Date/Time: [facility] Department of Pathology [address] [place], [place] [phone] Name: ALEXANDRA HIGGINS : 2000 [facility] [id number] Number: Gender Female [facility] : n: Admit 22 years Attending TERESITA HODGE Age: Provider: Ordering TERESITA HODGE Provider: Consulti Surgical Pathology Report ng: ACCESSION: COLLECTED DATE/TIME: RECEIVED DATE/TIME: PATHOLOGIST: [id number] 09/15/2022 12:34 EST 09/15/2022 12:34 EST LILLIE KHAN, LUIS ERAZO Gross Description Tissue pathology report for: [facility], [address] [place] [address]; PATHOLOGY SERVICES PROVIDED BY [employer] (CLIA #[id number]) in cooperation with [facility] at [address] [place] [address] ( CLIA #[id number]) Codes CPT CODE: 26883 ____ Print 09/16/2022 14:53 EST Number: Date/Time: Normal [facility] Comment on above: Performed By: #### 9 [id number] #### [facility] Laboratory Services [address] [place] [address] Patient Accounts Specialist: Tom Aguero MD CBC AUTO DIFFon 09-15-2022 BASO # 0.0 103/ul Normal 0.0-0.1 [facility] Comment on above: Performed By: #### C BC #### [facility] [address] [place] [address] Dr. Aleah Peres Basophils/100 WBC (Bld) 0.4 % Normal 0.2-2.0 [facility] Comment on above: Performed By: #### C BC #### [facility] [address] [place] [address] Dr. Aleah Peres EO # 0.1 103/ul Normal 0.0-0.7 [facility] Comment on above: Performed By: #### C BC #### [facility] [address] [place] [address] Dr. Aleah Peres Eosinophils/100 WBC (Bld) 1.3 % Normal 0.9-7.0 [facility] Comment on above: Performed By: #### C BC #### [facility] [address] [place] [address] Dr. Aleah Peres Erythrocyte distribution width (RBC) [Ratio] 13.8 % Normal 11.0-15.0 [facility] Comment on above: Performed By: #### C BC #### [facility] [address] [place] [address] Dr. Aleah Peres Hematocrit (Bld) [Volume fraction] 35.5 % Critically low 36.0-48.0 [facility] Comment on above: Performed By: #### C BC #### [facility] [address] [place] [address] Dr. Aleah Peres Hemoglobin (Bld) [Mass/Vol] 11.6 g/dL Critically low 12.0-16.0 [facility] Comment on above: Performed By: #### C BC #### [facility] [address] [place] [address] Dr. Aleah Peres IG # 0.03 10e3/ul Normal 0.00-0.03 [facility] Comment on above: Performed By: #### C BC #### [facility] [address] [place] [address] Dr. Aleah Peres IG % 0.4 % Normal 0.0-0.5 [facility] Comment on above: Performed By: #### C BC #### [facility] [address] [place] [address] Dr. Aleah Peres LYMPH # 2.8 103/ul Normal 1.2-3.8 [facility] Comment on above: Performed By: #### C BC #### [facility] [address] [place] [address] Dr. Aleah Peres Lymphocytes/100 WBC (Bld) 32.9 % Normal 20.5-60.0 [facility] Comment on above: Performed By: #### C BC #### [facility] [address] [place] [address] Dr. Aleah Peres MANUAL DIFF REQ NO Normal [facility] Comment on above: Performed By: #### C BC #### [facility] [address] [place] [address] Dr. Aleah Peres MCH (RBC) [Entitic mass] 26.9 pg Normal 26.7-34.0 [facility] Comment on above: Performed By: #### C BC #### [facility] [address] [address] [address] Aleah Peres MCHC (RBC) [Mass/Vol] 32.7 g/dL Normal 29.9-35.2 [facility] Comment on above: Performed By: #### C BC #### [facility] [address] [place] [address] Dr. Aleah Peres MCV (RBC) [Entitic vol] 82.4 fL Normal 81.0-99.0 [facility] Comment on above: Performed By: #### C BC #### [facility] [address] [place] [address] Dr. Aleah Peres MONO # 0.7 103/ul Normal 0.3-0.8 [facility] Comment on above: Performed By: #### C BC #### [facility] [address] [place] [address] Dr. Aleah Peres Monocytes/100 WBC (Bld) 8.6 % Normal 1.7-12.0 [facility] Comment on above: Performed By: #### C BC #### [facility] [address] [place] [address] Dr. Aleah Peres NEUT # 4.8 103/ul Normal 1.4-6.5 [facility] Comment on above: Performed By: #### C BC #### [facility] [address] [place] [address] Dr. Aleah Peres Neutrophils/100 WBC (Bld) 56.4 % Normal 43.0-75.0 [facility] Comment on above: Performed By: #### C BC #### [facility] [address] [place] [address] Dr. Aleah Peres Platelet mean volume (Bld) [Entitic vol] 9.9 fL Normal 9.5-13.5 [facility] Comment on above: Performed By: #### C BC #### [facility] [address] [place] [address] Dr. Aleah Peres PLT 316 103/ul Normal 150-450 [facility] Comment on above: Performed By: #### C BC #### [facility] [address] [address] [address] Aleah Peres RBC 4.31 106/ul Normal 4.20-5.40 [facility] Comment on above: Performed By: #### C BC #### [facility] [address] [place] [address] Dr. Aleah Peres WBC 8.4 103/ul Normal 4.0-11.0 [facility] Comment on above: Performed By: #### C BC #### [facility] [address] [place] [address] Dr. Aleah Peres PREG QUANT HCGon 09-15-2022 HCG QUANT 43919 mIU/mL Normal [facility] Comment on above: Performed By: #### P REGQNT #### [facility] [address] [place] [address] Dr. Aleah Peres HCG RANGE SEE BELOW Normal [facility] Comment on above: Result Comment: 5-50 0.2-1 WEEK 50-500 1-2 WEEKS 100-5,000 2-3 WEEKS 500-10,000 3-4 WEEKS 1,000-50,000 4-5 WEEKS 10,000-100,000 5-6 WEEKS 15,000-200,000 6-8 WEEKS 10,000-100,000 2-3 MONTHS Performed By: #### P REGQNT #### [facility] [address] [place] [address] Dr. Aleah Peres TYPE AND SCREENon 09-15-2022 TYPE AND SCREEN Negative Normal [facility] Comment on above: Performed By: #### P REGQNT #### [facility] [address] [place] [address] Dr. Aleah Peres US PELVISon 09-15-2022 US PELVIS EXAMINATION: US PELVIS HISTORY: Spontaneous COMPARISON: No relevant comparison available. TECHNIQUE: Transabdominal and transvaginal sonographic examination. FINDINGS: UTERUS: Small amount of fluid within endometrial cavity. No visible retained products of conception. IMPRESSION: 1. No appreciable retained products of conception within uterine cavity. Electronically authenticated by: ASHLEY NOEL Date: 2022-09-15 15:42 Normal [facility] US PREG TVon 09-13-2022 US PREG [...] Right ovary was not identified. Normal [facility] CBC AUTO DIFFon 08-16-2022 BASO # 0.0 103/ul Normal 0.0-0.1 [facility] Comment on above: Performed By: #### C BC #### [facility] [address] [address] [address] Aleah Peres Basophils/100 WBC (Bld) 0.4 % Normal 0.2-2.0 [facility] Comment on above: Performed By: #### C BC #### [facility] [address] [address] [address] Aleah Peres EO # 0.1 103/ul Normal 0.0-0.7 [facility] Comment on above: Performed By: #### C BC #### [facility] [address] [address] [address] Aleah Peres Eosinophils/100 WBC (Bld) 1.4 % Normal 0.9-7.0 [facility] Comment on above: Performed By: #### C BC #### [facility] [address] [place] [address] Dr. Aleah Peres Erythrocyte distribution width (RBC) [Ratio] 13.6 % Normal 11.0-15.0 [facility] Comment on above: Performed By: #### C BC #### [facility] [address] [place] [address] Dr. Aleah Peres Hematocrit (Bld) [Volume fraction] 32.4 % Critically low 36.0-48.0 [facility] Comment on above: Performed By: #### C BC #### [facility] [address] [place] [address] Dr. Aleah Peres Hemoglobin (Bld) [Mass/Vol] 11.2 g/dL Critically low 12.0-16.0 [facility] Comment on above: Performed By: #### C BC #### [facility] [address] [place] [address] Dr. Aleah Peres IG # 0.02 10e3/ul Normal 0.00-0.03 [facility] Comment on above: Performed By: #### C BC #### [facility] [address] [place] [address] Dr. Aleah Peres IG % 0.3 % Normal 0.0-0.5 [facility] Comment on above: Performed By: #### C BC #### [facility] [address] [place] [address] Dr. Aleah Peres LYMPH # 2.4 103/ul Normal 1.2-3.8 [facility] Comment on above: Performed By: #### C BC #### [facility] [address] [place] [address] Dr. Aleah Peres Lymphocytes/100 WBC (Bld) 32.3 % Normal 20.5-60.0 [facility] Comment on above: Performed By: #### C BC #### [facility] [address] [place] [address] Dr. Aleah Peres MANUAL DIFF REQ NO Normal [facility] Comment on above: Performed By: #### C BC #### [facility] [address] [place] [address] Dr. Aleah Peres MCH (RBC) [Entitic mass] 26.9 pg Normal 26.7-34.0 [facility] Comment on above: Performed By: #### C BC #### [facility] [address] [place] [address] Dr. Aleah Peres MCHC (RBC) [Mass/Vol] 34.6 g/dL Normal 29.9-35.2 [facility] Comment on above: Performed By: #### C BC #### [facility] [address] [place] [address] Dr. Aleah Peres MCV (RBC) [Entitic vol] 77.9 fL Critically low 81.0-99.0 [facility] Comment on above: Performed By: #### C BC #### [facility] [address] [place] [address] Dr. Aleah Peres MONO # 0.7 103/ul Normal 0.3-0.8 [facility] Comment on above: Performed By: #### C BC #### [facility] [address] [place] [address] Dr. Aleah Peres Monocytes/100 WBC (Bld) 9.1 % Normal 1.7-12.0 [facility] Comment on above: Performed By: #### C BC #### [facility] [address] [place] [address] Dr. Aleah Peres NEUT # 4.1 103/ul Normal 1.4-6.5 [facility] Comment on above: Performed By: #### C BC #### [facility] [address] [place] [address] Dr. Aleah Peres Neutrophils/100 WBC (Bld) 56.5 % Normal 43.0-75.0 [facility] Comment on above: Performed By: #### C BC #### [facility] [address] [place] [address] Dr. Aleah Peres Platelet mean volume (Bld) [Entitic vol] 9.4 fL Critically low 9.5-13.5 [facility] Comment on above: Performed By: #### C BC #### [facility] [address] [place] [address] Dr. Aleah Peres PLT 303 103/ul Normal 150-450 [facility] Comment on above: Performed By: #### C BC #### [facility] [address] [place] [address] Dr. Aleah Peres RBC 4.16 106/ul Critically low 4.20-5.40 [facility] Comment on above: Performed By: #### C BC #### [facility] [address] [place] [address] Dr. Aleah Peres WBC 7.3 103/ul Normal 4.0-11.0 [facility] Comment on above: Performed By: #### C BC #### [facility] [address] [place] [address] Dr. Aleah Peres ER URINE PROFILEon 3 Bilirubin Ql (U) Negative Normal NEGATIVE [facility] Comment on above: Performed By: #### E RUR #### [facility] [address] [place] [address] Dr. Aleah Peres Clarity (U) CLEAR Normal CLEAR [facility] Comment on above: Performed By: #### E RUR #### [facility] [address] [place] [address] Dr. Aleah Peres Color (U) YELLOW Normal YELLOW [facility] Comment on above: Performed By: #### E RUR #### [facility] [address] [place] [address] Dr. Aleah SALESJordan A micrscopic examination will be performed if indicated. Normal [facility] Comment on above: Performed By: #### E RUR #### [facility] [address] [place] [address] Dr. Aleah Peres Glucose Ql (U) Negative Normal NEGATIVE [facility] Comment on above: Performed By: #### E RUR #### [facility] [address] [place] [address] Dr. Aleah Peres Hemoglobin Ql (U) Negative Normal NEGATIVE [facility] Comment on above: Performed By: #### E RUR #### [facility] [address] [place] [address] Dr. Aleah Peres Ketones Ql (U) Negative Normal NEGATIVE [facility] Comment on above: Performed By: #### E RUR #### [facility] [address] [place] [address] Dr. Aleah Peres LEUKOCYTES Negative Normal NEGATIVE [facility] Comment on above: Performed By: #### E RUR #### [facility] [address] [place] [address] Dr. Aleah Peres Nitrite Ql (U) Negative Normal NEGATIVE [facility] Comment on above: Performed By: #### E RUR #### [facility] [address] [place] [address] Dr. Aleah Peres pH (U) 6.0 [pH] Normal 5-9 [facility] Comment on above: Performed By: #### E RUR #### [facility] [address] [place] [address] Dr. Aleah Peres SPEC GRAVITY 1.020 Normal 1.005-<=1.025 [facility] Comment on above: Performed By: #### E RUR #### [facility] [address] [place] [address] Dr. Aleah Peres UA PROTEIN Negative Normal NEGATIVE/ TRACE [facility] Comment on above: Performed By: #### E RUR #### [facility] [address] [place] [address] Dr. Aleah Peres UR MICRO IND NOT INDICATED Normal [facility] Comment on above: Performed By: #### E RUR #### [facility] [address] [place] [address] Dr. Aleah Peres Urobilinogen Qn (U) 0.2 {Edmund'U}/dL Normal 0.2 - 1. 0 [facility] Comment on above: Performed By: #### E RUR #### [facility] [address] [place] [address] Dr. Aleah Peres PROF 14(COMP METB)on 023 Albumin [Mass/Vol] 3.0 g/dL Critically low 3.4-5.0 Th [facility] Comment on above: Performed By: #### C MP #### [facility] [address] [place] [address] Dr. Aleah Peres Albumin/Globulin [Mass ratio] 0.8 {ratio} Normal [facility] Comment on above: Performed By: #### C MP #### [facility] [address] [address] [address] Aleah Peres ALP [Catalytic activity/Vol] 52 U/L Normal 46-116 [facility] Comment on above: Performed By: #### C MP #### [facility] [address] [place] [address] Dr. Aleah Peres ALT [Catalytic activity/Vol] 15 U/L Normal 14-59 [facility] Comment on above: Performed By: #### C MP #### [facility] [address] [place] [address] Dr. Aleah Peres Anion gap [Moles/Vol] 10.2 mmol/L Normal [facility] Comment on above: Performed By: #### C MP #### [facility] [address] [place] [address] Dr. Aleah Peres AST [Catalytic activity/Vol] 13 U/L Critically low 15-37 [facility] Comment on above: Performed By: #### C MP #### [facility] [address] [place] [address] Dr. Aleah Peres Bilirubin [Mass/Vol] 0.2 mg/dL Normal 0.2-1.0 [facility] Comment on above: Performed By: #### C MP #### [facility] [address] [place] [address] Dr. Aleah Peres Calcium [Mass/Vol] 9.1 mg/dL Normal 8.5-10.1 [facility] Comment on above: Performed By: #### C MP #### [facility] [address] [place] [address] Dr. Aleah Peres Chloride [Moles/Vol] 100 mmol/L Normal 98-107 [facility] Comment on above: Performed By: #### C MP #### [facility] [address] [address] [address] Aleah Peres CO2 [Moles/Vol] 28.8 mmol/L Normal 21.0-32.0 [facility] Comment on above: Performed By: #### C MP #### [facility] [address] [address] [address] Aleah Peres Creatinine [Mass/Vol] 0.56 mg/dL Normal 0.55-1.02 [facility] Comment on above: Performed By: #### C MP #### [facility] [address] [address] [address] Aleah Peres EGFR-AF INDIAN >60 Normal >=60 [facility] Comment on above: Performed By: #### C MP #### [facility] [address] [place] [address] Dr. Aleah Peres EGFR-NON AF INDIAN >60 Normal >=60 [facility] Comment on above: Performed By: #### C MP #### [facility] [address] [address] [address] Aleah Peres Globulin (S) [Mass/Vol] 3.9 g/dL Normal [facility] Comment on above: Performed By: #### C MP #### [facility] [address] [place] [address] Dr. Aleah Peres Glucose [Mass/Vol] 90 mg/dL Normal 74-106 [facility] Comment on above: Performed By: #### C MP #### [facility] [address] [place] [address] Dr. Aleah Peres Potassium [Moles/Vol] 4.0 mmol/L Normal 3.5-5.1 [facility] Comment on above: Performed By: #### C MP #### [facility] [address] [address] [address] Aleah Peres Protein [Mass/Vol] 6.9 g/dL Normal 6.4-8.2 [facility] Comment on above: Performed By: #### C MP #### [facility] [address] [address] [address] Aleah Peres Sodium [Moles/Vol] 135 mmol/L Critically low 136-145 [facility] Comment on above: Performed By: #### C MP #### [facility] [address] [address] [address] Aleah Peres Urea nitrogen [Mass/Vol] 4.0 mg/dL Critically low 7.0-18.0 [facility] Comment on above: Performed By: #### C MP #### [facility] [address] [place] [address] Dr. Aleah Peres Urea nitrogen/Creatinine [Mass ratio] 7.1 mg/mg Normal [facility] Comment on above: Performed By: #### C MP #### [facility] [address] [place] [address] Dr. Aleah Peres PAP ACOG PANEL 2: 21 to 29on 08-02-2022 . . Normal [facility] Comment on above: Result Comment: Perf ormed at: WB Performed By: #### [id number] #### [facility] [address] [place] [address] Dr. Aleah Peres Age Gdln ACOG Testing - Normal [facility] Comment on above: Performed By: #### [id number] #### [facility] [address] [place] [address] Dr. Aleah Peres DIAGNOSIS: Comment Abnormal [facility] Comment on above: Result Comment: EPIT HELIAL CELL ABNORMALITY. LOW GRADE SQUAMOUS INTRAEPITHELIAL LESION (LSIL). Performed at: WB Performed By: #### [id number] #### [facility] [address] [place] [address] Dr. Aleah Peres Electronically signed by: Comment Normal [facility] Comment on above: Result Comment: Amena Arciniega MD, Pathologist Performed at: WB Performed By: #### [id number] #### [facility] [address] [place] [address] Dr. Aleah Peres Methodology: Comment Normal [facility] Comment on above: Result Comment: This liquid based ThinPrep(R) pap test was screened with the use of an image guided system. Performed at: WB Performed By: #### [id number] #### [facility] [address] [address] [address] Aleah Peres Note: Comment Normal [facility] Comment on above: Result Comment: The Pap smear is a screening test designed to aid in the detection of premalignant and malignant conditions of the uterine cervix. It is not a diagnostic procedure and should not be used as the sole means of detecting cervical cancer. Both false-positive and false-negative reports do occur. . Performed at: WB Performed By: #### [id number] #### [facility] [address] [address] [address] Aleah Peres Pathologist Provided ICD10 Comment [facility] Comment on above: Result Comment: R87. [id number] Performed at: WB Performed By: #### [id number] #### [facility] [address] [place] [address] Dr. Aleah Peres Performed by: Comment Normal [facility] Comment on above: Result Comment: Caitlyn Crenshaw, Pit Clerk (ASCP) Performed at: BA Performed By: #### [id number] #### [facility] [address] [address] [address] Aleah Peres Recommendation: Comment Abnormal [facility] Comment on above: Result Comment: Sugg est follow up as clinically appropriate. Performed at: WB Performed By: #### 4 [id number] #### [facility] [address] [address] [address] Aleah Peres Reflex Criteria: Comment Normal [facility] Comment on above: Result Comment: The HPV DNA reflex criteria were not met with this specimen result therefore, no HPV testing was performed. . Performed at: WB Performed By: #### [id number] #### [facility] [address] [address] [address] Aleah Peres Specimen adequacy: Comment Normal [facility] Comment on above: Result Comment: Sati sfactory for evaluation. Endocervical and/or squamous metaplastic cells (endocervical component) are present. Performed at: WB Performed By: #### 4 [id number] #### [facility] [address] [place] [address] [id number] [address] Aleah Pe[facility] SARS-CoV-2 (COVID-19) RNA MARY ELLEN+probe Ql (Unsp spec) Not detected Normal NOT DETECTED [facility] Comment on above: Result Comment: When [...] for this test is supported by the [employer] Operator of Health and Human Service's declaration that [...] used). Performed By: #### P REGQNT #### [facility] [address] [place], [place] [id number] Dr. Aleah Peres Vital Signs Date Time Vital Sign Value Performing Clinician Nelly smith 05-31-2024 09:40-0500 Body mass index (BMI) [Ratio] 30.86 kg/m2 Amy VILLATORO Work Phone: [facility] 05-31-2024 09:40-0500 Body weight 80.29 kg Amy VILLATORO Work Phone: [facility] 05-31-2024 09:40-0500 Diastolic blood pressure 72 mm[Hg] Amy VILLATORO Work Phone: [facility] 05-31-2024 09:40-0500 Systolic blood pressure 118 mm[Hg] Amy VILLATORO Work Phone: [facility] 08-31-2023 13:43-0500 Body mass index (BMI) [Ratio] 33.2 kg/m2 Teresita Hodge DO Work Phone: [facility] 08-31-2023 13:43-0500 Body weight 86.36 kg Terseita Ayesha DO Work Phone: [facility] 08-31-2023 13:43-0500 Diastolic blood pressure 70 mm[Hg] Teresita Ayesha DO Work Phone: [facility] 08-31-2023 13:43-0500 Systolic blood pressure 114 mm[Hg] Teresita Ayesha DO Work Phone: [facility] Encounters Encounter Date Encounter Type Care Provider Facility Start: 06-07-2024 End: 06-07-2024 ambulatory AMY DOBBINS Not Available Start: 05-31-2024 End: 05-31-2024 Bamboo flowsheet Amy VILLATORO Work Phone: [facility] Start: 05-31-2024 End: 05-31-2024 Bamboo flowsheet Amy VILLATORO Work Phone: [facility] Start: 05-31-2024 End: 05-31-2024 ambulatory AMY DOBBINS Not Available Start: 05-31-2024 End: 05-31-2024 Office outpatient visit 15 minutes Amy VILLATORO Work Phone: [facility] Comment on above: 8 weeks gestation of ; Cramping affecting , antepartum Start: 03-06-2024 End: 03-06-2024 ambulatory PAM MENJIVAR Not Available Start: 11-30-2023 End: 11-30-2023 ambulatory MU Not Available Start: 10-12-2023 End: 10-12-2023 ambulatory TERESITA AYESHA Not Available Start: 09-28-2023 End: 09-28-2023 ambulatory TERESITA AYESHA Not Available Start: 09-14-2023 End: 09-14-2023 ambulatory MU Not Available Start: 08-31-2023 End: 08-31-2023 Office outpatient visit 15 minutes Teresita Ayesha DO Work Phone: [facility] Comment on above: Third trimester preg hanh Start: 08-31-2023 End: 08-31-2023 ambulatory TERESITA HODGE Not Available Start: 08-10-2023 End: 08-10-2023 ambulatory AMY KINGEY Not Available Start: 07-13-2023 End: 07-13-2023 ambulatory TERESITA HODGE Not Available Start: 06-13-2023 End: 06-13-2023 ambulatory AMY KINGEY Not Available Start: 11-10-2022 End: 11-10-[address] ALEXIA BARRETT . Facility:[facility] Start: 10-22-2022 End: 10-23-2022 ambulatory NATASHA CAMARA . Facility: Start: 10-08-2022 End: 10-09-2022 ambulatory ALEXIA BARRETT Facility:[facility] Start: 10-08-2022 End: 10-08-[address] ALEXIA BARRETT . Facility: Start: 10-06-2022 End: 10-07-[address] ALEXIA BARRETT . Facility: Start: 09-17-2022 Encounter for other preprocedural examination DR TERESITA HODEG . [facility] Start: 09-15-2022 End: 09-16-2022 ambulatory TERESITA HODGE Facility:[facility] Start: 09-15-2022 End: 09-15-[address] [...] w/o micrscp Teresita Hodge DO Work Phone: Start: 11-10-2022 Cytp cerv/vag auto t hin layer prep mnl screen Teresita Hodge DO Work Phone: Plan of Treatment Date Care Activity Detail Author Start: 06-07-2024 End: 06-07-2024 ambulatory 06/07/2024 1:30 PM EST Initial [facility] [address] [place] [address] [facility] Start: 06-07-2024 End: 06-07-2024 Professional / ancillary services management 06/07/2024 1:00 PM EST Ancillary Procedure [facility] [address] [place] [address] [facility] Start: 09-14-2023 End: 09-14-2023 Patient encounter procedure 09/14/2023 3:50 PM EST Routine [facility] [address] [place] [address] Amy Dobbins PA [address] [place] [address] [facility] Payers Date Payer Category Payer Medicaid [id number] 2022 Medicaid [id number] 1999 Unknown [id number] 2.16.84 0.1.779444.3.579.2.593 1999 Unknown [id number] 2.16.84 0.1.252747.3.579.2.593 1999 Unknown [id number] 2.16.84 0.1.194964.3.579.2.593 1999 Unknown [id number] 2.16.84 0.1.414872.3.579.2.593 1999 Unknown [id number] 2.16.84 0.1.544503.3.579.2.593 1999 Unknown [id number] 2.16.84 0.1.915135.3.579.2.593 1999 Unknown [id number] 2.16.84 0.1.510093.3.579.2.593 1999 Unknown [id number] 2.16.84 0.1.441595.3.579.2.593 1999 Unknown [id number] 2.16.84 0.1.439646.3.579.2.593 1999 Unknown [id number] 2.16.84 0.1.342522.3.579.2.593 1999 Unknown [id number] 2.16.84 0.1.469491.3.579.2.1259 1999 Unknown [id number] 2.16.84 0.1.353566.3.579.2.1259 1999 Unknown [id number] 2.16.84 0.1.748027.3.579.2.1259 1999 Unknown [id number] 2.16.84 0.1.350939.3.579.2.1259 1999 Unknown [id number] 2.16.84 0.1.198464.3.579.2.1259 1999 Unknown [id number] 2.16.84 0.1.794883.3.579.2.1259 1999 Unknown [id number] 2.16.84 0.1.797064.3.579.2.1259 1999 Unknown [id number] 2.16.84 0.1.090877.3.579.2.1259 1999 Unknown [id number] 2.16.84 0.1.598605.3.579.2.1259 1999 Unknown [id number] 2.16.840 .1.612570.3.579.2.1259 1999 Unknown [id number] 2.16.840 .1.930531.3.579.2.1259 1959 Unknown [id number] 1959 Unknown [id number] Social History Date Type Detail Facility Start: 04-18-2023 Tobacco smoking stat [facility] Never smoked tobacco [facility] [...] of Present illness Narrative 08-31-2023 Sharon Hare, FIELD NATURALIST - 08/31/2023 1:40 PM EST Note Date & Type Note Facility 08-31-2023 History of Presen t illness Narrative Reason for Appointment: Patient ID: Mikiawjavier Higgins is a 23 y.o. female who [...] nursing note reviewed. Exam conducted with a wrapping machine helper present. Vitals: Estimated body mass index is [...] Teresita Hodge DO documented in this encounter [facility] Clinical Note 09-15-2022 Note Date & Type [...] authenticated by: ASHLEY NOEL Date: 2022-09-15 07:41 [facility] Clinical Note 09-15-2022 Note Date & Type Note Facility 09-15-2022 Note OPERATIVE NOTE OPERATION DATE: 09/15/2022 PROCEDURE: Suction D AND C. PREOPERATIVE DIAGNOSIS: First trimester missed at 10 weeks. POSTOPERATIVE DIAGNOSIS: First trimester missed at 10 weeks. ANESTHESIA: General. SURGEON: Teresita Hodge D.O. PAPER GOODS MACHINE SET UP OPERATOR: None. FINDINGS: Products of conception. SPECIMEN: Products [...] products of conception were removed using an 9-Swedish suction curette. Excellent hemostasis was noted. The patient tolerated the procedure well. Sponge, lap, and needle counts were correct x 2. All instruments were then removed from the patient's vagina. The patient was taken to the Recovery Room in stable condition. ?? [facility] Evaluation note Note Date & Type Note Facility Evaluation note Diagnosis Third trimester state, incidental documented in this encounter [facility] Evaluation note Note Date & Type Note Facility Evaluation note Diagnosis 8 weeks gestation of Cramping affecting , antepartum documented in this encounter [facility] Summary Purpose Family History No Family History Records FoundNo Family History Records FoundNo Family History Records Found Advance Directives No Advanced Directives Records FoundNo Advanced Directives Records FoundNo Advanced Directives Records Found Additional Source Comments INFORMATION SOURCE (unrecogn ized section and content) DATE CREATED AUTHOR 10/12/2022 [facility] DATE CREATED AUTHOR AUTHOR'S ORGANIZ ATION 12/08/2022 [facility] DATE CREATED AUTHOR AUTHOR'S ORGANIZ ATION 06/10/2024 [facility] EPIC Reason for Visit (unrecogniz [...] BE BASED ON THE PRIMARY CLINICAL RECORDS. [facility] [employer] provides no warranty or guarantee of the accuracy or completeness of information in this document.
[2024-06-14 13:15] LABS: BOX Test Reference Lab UNITY; BOX Test Sent Out UNITY
[2024-06-14 13:16] LABS: Basophils Percent Auto 0.3 % (0.2-2.0); Eosinophils Absolute Auto 0.1 10^3/uL (0.0-0.7); Eosinophils Percent Auto 0.6 % (0.9-7.0); Hematocrit 35.2 % (36.0-48.0); Hemoglobin 11.3 g/dL (12.0-16.0); Immature Granulocytes Abs Auto 0.03 10^3/uL (0.00-0.03); Immature Granulocytes Pct Auto 0.3 % (0.0-0.5); Lymphocytes Absolute Auto 1.8 10^3/uL (1.2-3.8); Lymphocytes Percent Auto 20.5 % (20.5-60.0); Mean Corpuscular HGB Conc 32.1 g/dL (29.9-35.2); Mean Corpuscular Volume 81.1 fL (81.0-99.0); Mean Platelet Volume 10.3 fL (9.5-13.5); Monocytes Absolute Auto 0.6 10^3/uL (0.3-0.8); Monocytes Percent Auto 6.5 % (1.7-12.0); Neutrophils Absolute Auto 6.4 10^3/uL (1.4-6.5); Neutrophils Percent Auto 71.8 % (43.0-75.0); Platelet Count 323 10^3/uL (150-450); Red Blood Count 4.34 10^6/uL (4.20-5.40); Red Cell Distribution Width 14.7 % (11.0-15.0); White Blood Count 8.9 10^3/uL (4.0-11.0)
[2024-06-14 13:29] LABS: Amphetamine Screen Urine NEGATIVE (NEGATIVE); Barbiturates Screen Urine NEGATIVE (NEGATIVE); Benzodiazepines Screen Urine NEGATIVE (NEGATIVE); Buprenorphine Screen Urine NEGATIVE (NEGATIVE); Cannabinoid Screen Urine NEGATIVE (NEGATIVE); Cocaine Screen Urine NEGATIVE (NEGATIVE); Methadone Screen Urine NEGATIVE (NEGATIVE); Methamphetamines Screen Urine NEGATIVE (NEGATIVE); Opiate Screen Urine NEGATIVE (NEGATIVE); Oxycodone Screen Urine NEGATIVE (NEGATIVE); Phencyclidine Screen Urine NEGATIVE (NEGATIVE); Tricyclic Antidepressant Urine NEGATIVE (NEGATIVE)
[2024-06-14 13:45] LABS: Estimated Average Glucose 105 mg/dL; Glycohemoglobin A1C 5.3 % (4.5-6.2)
[2024-06-15 07:12] LABS: HBsAg Screen Negative (Negative); HCV Ab Non Reactive (Non Reactive); HIV Ab/p24 Ag Screen Non Reactive (Non Reactive)
[2024-06-15 08:13] LABS: Rubella Antibodies, IgG 2.01 index (Immune >0.99)
[2024-06-15 11:10] LABS: Rapid Plasma Reagin, Quant Non Reactive titer (NonRea<1:1)
== END 2024-06-14 12:26 | disposition home or self-care (01) ==
LOC: LAB 12:26
PROVIDERS: Visit Provider Obstetrics & Gynecology
DX: Z34.01 Encounter for supervision of normal first pregnancy, first trimester (principal); Z36.0 Encounter for antenatal screening for chromosomal anomalies; N92.6 Irregular menstruation, unspecified
CPT/HCPCS: 36415; 80307; 83036; 85025; 86592; 86762; 86803; 86850; 86900; 86901; 87086; 87340; 87389

== ENCOUNTER 2024-06-22 10:08 | Outpatient (OUT) | payer MEDICAID, SELFPAY ==
--- NOTE | 2024-06-22 | US_ITS ---
The [address] [address] Patient Name: CHULA CHAVEZ MRN: [id number] date: 2000 Sex: F Assigned Patient Location: US Current Patient Location: Accession/Order Number: [id number] Exam Date: 06/22/2024 10:15 Report Date: 06/22/2024 13:10 At the request of: TERESITA ARTHUR Procedure: US OB cervical length EXAMINATION: US OB cervical length HISTORY: Encounter for screening for cervical length Z36.86 COMPARISON: Ultrasound OB transvaginal 05/22/2024 TECHNIQUE: Transabdominal and transvaginal sonographic examination for cervical length. FINDINGS: CERVIX LENGTH: 2.4 cm; closed. HEART RATE: 163 bpm Age by EDC: 11 weeks 2 days FERN by EDC: 01/09/2025 US/US OB cervical length IMPRESSION: 1. Short cervix 2.4 cm in length. (Cervix was 2.9 cm on 05/22/2024) Electronically authenticated by: ASHLEY NOEL Date: 06/22/2024 13:10
--- OUTSIDE RECORDS SUMMARY | 2024-06-22 10:10 | XMS_ITS | CCD ---
Author Organization [facility] Care Team Providers Care Java Developer Consultant Name Role Phone ALEXIA BARRETT Attending Unavailable [...] Drug Class(es) Dates Sig (Normalized) Sig (Original) MV-Min-Fe Fum-FA-DHA (CENTRUM SPECIALIST PO) (6 sources) take 1 dose by mouth once in the morning MV-Min-Fe Fum-FA-DHA (CENTRUM SPECIALIST PO) Take 1 each by mouth in the morning. Active take 1 dose by mouth once in the morning MV-Min-Fe Fum-FA-DHA (CENTRUM SPECIALIST PO) Take 1 each by mouth in the morning. 0 Active Completed/Discontinued Medications Medication Drug Class(es) Dates Sig (Normalized) Sig (Original) [id number] 200 actuat albuterol 0.09 mg/actuat metered dose inhaler (5 sources) beta2-Adrenergi c Agonist End: 06-07-2024 albuterol HFA (Ventolin HFA) 90 mcg/act inhaler every 4 (four) hours. 06/07/2024 Discontinued polysaccharide iron complex 391 mg oral capsule [...] time. 0 09/21/2022 08/31/2023 Discontinued (Therapy completed) ID-Vgl-WM-Camden-3 ( Gummies/DHA & FA) 0.4-32.5 MG chewable tablet (1 source) Start: 03-03-2023 End: 08-31-2023 LX-Sgv-CO-Camden-3 ( Gummies/DHA & FA) 0.4-32.5 MG chewable tablet Problems Active Problems Problem Classification Problem Date Documented Da te Episodic/Chronic Abdominal pain (1 source) Pelvic and perineal pain; Translations: [PELVIC AND PERINEAL PAIN] Onset: 10-15-2022 Episodic Gastrointestinal hemorrhage (4 sources) Melena; Translations: [MELENA] Onset: 10-22-2022 Episodic Menstrual disorders (11 sources) Amenorrhea; Translations: [Amenorrhea, unspecified] Onset: 10-26-2023 10-26-2023 Chronic Other complications of (5 sources) Missed ; Translations: [MISSED ] Onset: 09-15-2022 Episodic Other complications of (2 sources) Uterine contractions problem; Translations: [Other specified related conditions, unspecified trimester] 05-31-2024 Episodic Other nutritional; endocrine; and metabolic disorders (5 sources) Obesity; Translations: [Obesity, unspecified] Onset: 10-26-2023 10-26-2023 Chronic Other and delivery including normal (7 sources) Encounter for test, result positive; Translations: [...] Date Documented Date Episodic/Chronic Cancer of cervix (9 sources) Low grade squamous intraepithelial lesion on [...] Onset: 08-17-2022 Episodic Other female genital disorders (5 sources) Disorder of female genital system; Translations: [...] Test Name Value Interpretation Reference Range Facility BOX TESTon 06-14-2024 B[address] OUT [facility] BOX1 [facility] e BOX2 06/14/24 [facility] BOX [facility] HCG ( test) Ql (U)o n 06-07-2024 Interpretation and review of laboratory results Abnormal [facility] Preg Test, Ur Positive Negative [facility] Urinalysis macro (dipstick) panel (U)on 06-07-2024 Bilirubin, UA Negative Negative - 4(70) +++ mg/dL [facility] Blood, UA Negative Negative - 50 William/mcL [facility] Clarity, UA Clear [facility] re Color, UA Yellow [facility] e Glucose, UA Negative Negative - 2000(110) ++++ mg/dL [facility] Interpretation and review of laboratory results Abnormal [facility] Ketones, UA Negative Negative - 160(16) ++++ mg/dL [facility] Leukocytes, UA Positive Negative - 500+++ Roma/mcL [facility] Comment on above: small Nitrite, UA Negative Negative - Positive [facility] pH, UA 7.5 5 - 9 [facility] Protein, UA Negative Negative - 2000(20) ++++ mg/dL [facility] Spec Grav, UA 1.02 1 - 1.03 [facility] Urobilinogen, UA 0.2 0.2 - 12 mg/dL [facility] Urinal[facility] macro (dipstick) panel (U)Ordered By: Shantel Rangel on 08-31-2023 Bilirubin, UA Negative Negative - 4(70) +++ mg/dL [facility] Blood, UA Negative Negative - 50 William/mcL [facility] Clarity, UA Clear [facility] Color, UA Yellow [facility] Glucose, UA Negative Negative - 1999(110) ++++ mg/dL [facility] Interpretation and review of laboratory results Abnormal [facility] Ketones, UA Positive Negative - 160(16) ++++ mg/dL [facility] Leukocytes, UA Trace Negative - 500+++ Roma/mcL [facility] Nitrite, UA Negative Negative - Positive [facility] pH, UA 7.5 5 - 9 [facility] Protein, UA Trace Negative - 1999(20) ++++ mg/dL [facility] Spec Grav, UA 1.020 1 - 1.03 [facility] Urobilinogen, UA 0.2 0.2 - 12 mg/dL [facility] PAP ACOG PANEL 2: 21 to 28on 11-17-2022 . . Normal [facility] Comment on above: Performed By: #### [id number] #### [facility] [address] [address] [address] Aleah Peres Age Gdln ACOG Testing - Normal [facility] Comment on above: Performed By: #### [id number] #### [facility] [address] [address] [address] Aleah Peres DIAGNOSIS: Comment [facility] Comment on above: Result Comment: NEGA TIVE FOR INTRAEPITHELIAL LESION OR MALIGNANCY. Performed By: #### 4 [id number] #### [facility] [address] [place] [address] Dr. Aleah Peres Methodology: Comment Normal [facility] Comment on above: Result Comment: This liquid based ThinPrep(R) pap test was screened with the use of an image guided system. Performed By: #### 4 [id number] #### [facility] [address] [place] [address] Dr. Aleah Peres Note: Comment Normal [facility] Comment on above: Result Comment: The Pap smear is a screening test designed to aid in the detection of premalignant and malignant conditions of the uterine cervix. It is not a diagnostic procedure and should not be used as the sole means of detecting cervical cancer. Both false-positive and false-negative reports do occur. . Performed By: #### 4 [id number] #### [facility] [address] [place] [address] Dr. Aleah Peres Performed by: Comment Normal [facility] Comment on above: Result Comment: Annelise Martinez Acquisition Advisor Performed By: #### 4 [id number] #### [facility] [address] [place] [address] Dr. Aleah Peres Reflex Criteria: Comment Normal [facility] Comment on above: Result Comment: The HPV DNA reflex criteria were not met with this specimen result therefore, no HPV testing was performed. . Performed By: #### 4 [id number] #### [facility] [address] [place] [address] Dr. Aleah Peres Specimen adequacy: Comment Normal [facility] Comment on above: Result Comment: Sati sfactory for evaluation. Endocervical and/or squamous metaplastic cells (endocervical component) are present. Performed By: #### 4 [id number] #### [facility] [address] [place] [address] Dr. Aleah Peres Cytology Cervical or vaginal smear or scraping studyon 11-10-2022 [facility] OCC BLD IMMUNO SCREENon OCCULT BLOOD Negative Normal NEGATIVE [facility] Comment on above: Performed By: #### O BSCRN #### [facility] [address] [place] [address] Dr. Aleah Peres SURGICAL PATH REPORTon 10-11 SURGICAL PATH REPORT [facility] Department of Pathology [address] [place] [phone] Name: CAMERON HIGGINS : 2000 [facility] [id number] Number: [facility] : n: Admit 22 years Attending ALEXIA BARRETT Age: Provider: Ordering ALEXIA BARRETT Provider: [facility] Pathology Report ng: ACCESSION: COLLECTED DATE/TIME: RECEIVED DATE/TIME: PATHOLOGIST: [id number] 10/08/2022 12:03 EDT 10/08/2022 12:03 EDT TOM AGUERO MD Final Diagnosis Report for [facility] [place] [place] RETAINED PRODUCTS OF CONCEPTION: - CHORIONIC [...] ald 10/08/2022 Tissue pathology report for: [facility], [address] [place] [address]; ____ Print 10/11/2022 15:01 EDT Number: Date/Time: [facility] Department of Pathology [address] [place] [id number] Name: CAMERON HIGGINS : 2000 [employer] [id number] Number: Gender Female Peter GARCIA : n: Admit 22 years Attending ALEXIA BARRETT Age: Provider: Ordering ALEXIA BARRETT Provider: [facility]i Surgical Pathology Report ng: ACCESSION: COLLECTED DATE/TIME: RECEIVED DATE/TIME: PATHOLOGIST: [id number] 10/08/2022 12:03 EDT 10/08/2022 12:03 EDT LACI KHAN, TOM Gross Description PATHOLOGY SERVICES PROVIDED BY [facility] (CLIA #[id number]) in cooperation with [facility] at [address] [place] [address] ( CLIA #[id number]) Codes CPT CODE: 39203 ____ Print 10/11/2022 15:01 EDT Number: Date/Time: Normal [facility] Comment on above: Performed By: #### [id number] #### [facility] Laboratory Services [address] [place], [place] [id number] Architectural Project Manager: Tom Aguero MD URon 10-08-2022 , QUAL Negative Normal NEGATIVE [facility] Comment on above: Performed By: #### P REGU #### [facility] [address] [place] [address] Dr. Aleah Peres US PELVIS AND TRANSVAGon [...] PIPPA ORTEGA Date: 2022-10-06 14:55 Normal [facility] SURGICAL PATH REPORTon 09-16 SURGICAL PATH REPORT [facility] Department of Pathology [address] [place] [phone] Name: ALEXANDRA HIGGINS : 2000 [facility] [id number] Number: Gender Female [facility] : n: Admit 22 years Attending TERESITA HODGE Age: Provider: Ordering TERESITA HODGE Provider: [facility]i Surgical Pathology Report ng: ACCESSION: COLLECTED DATE/TIME: RECEIVED DATE/TIME: PATHOLOGIST: [id number] 09/15/2022 12:34 EST 09/15/2022 12:34 HENRY MOREIRA MD, LUIS ERAZO Final Diagnosis Report for [facility] [place] [place] PRODUCTS OF CONCEPTION, DILATION AND CURETTAGE: - CHORIONIC VILLI ARE PRESENT; NO SIGNIFICANT ATYPIA IS OBSERVED. - BENIGN MATERIAL DECIDUA PRESENT. - NO PARTS ARE IDENTIFIED. LUIS MOREIRA PATHOLOGIST (Electronic Signature) Date Verified 09/16/2022 LN Clinical Data PRE-OP DIAGNOSIS: Not specified POST-OP DIAGNOSIS: Missed PROCEDURES: D and C with suction SPECIMEN: Products of conception / resident care manager rn Gross Description Labeled products of conception. Received in formalin in a suction sock are multiple irregular segments of medrano pink to red black soft tissue. The individual segments have a variable granular to partially smooth glistening membranous character. The specimen in total aggregate measures 12.5 x 7.5 x 4.0 cm. There are no grossly identifiable parts. Stone Carriage Operator sections are submitted in three cassettes. MP/ald 09/15/2022 ____ Print 09/16/2022 14:53 EST Number: Date/Time: [facility] Department of Pathology [address] [place] [phone] Name: ALEXANDRA HIGGINS : 2000 [facility] [id number] Number: Gender Female Locatio [facility] : n: Admit 22 years Attending TERESITA HODGE Age: Provider: Ordering TERESITA HODGE Provider: Consulti Surgical Pathology Report ng: ACCESSION: COLLECTED DATE/TIME: RECEIVED DATE/TIME: PATHOLOGIST: [id number] 09/15/2022 12:34 EST 09/15/2022 12:34 EST LILLIE KHAN, LUIS ERAZO Gross Description Tissue pathology report for: [facility], [address] [place] [address]; PATHOLOGY SERVICES PROVIDED BY [facility] (CLIA #[id number]) in cooperation with [facility] at [address] [place] [id number] ( CLIA #[id number]) Codes CPT CODE: 16031 ____ Print 09/16/2022 14:53 EST Number: Date/Time: Normal [facility] Comment on above: Performed By: #### 9 [id number] #### [facility] Services [address] [place] [address] Architectural Project Manager: Tom Aguero MD CBC AUTO DIFFon 09-15-2022 BASO # 0.0 103/ul Normal 0.0-0.1 [facility] Comment on above: Performed By: #### C BC #### [facility] [address] [place] [address] Dr. Aleah Peres Basophils/100 WBC (Bld) 0.4 % Normal 0.2-2.0 [facility] Comment on above: Performed By: #### C BC #### [facility] [address] [place] [address] Dr. Aleah Peres EO # 0.1 103/ul Normal 0.0-0.7 [facility] Comment on above: Performed By: #### C BC #### [facility] [address] [place] [address] Dr. Aleah Peres Eosinophils/100 WBC (Bld) 1.3 % Normal 0.9-7.0 [facility] Comment on above: Performed By: #### C BC #### [facility] [address] [place] [address] Dr. Aleah Peres Erythrocyte distribution width (RBC) [Ratio] 13.8 % Normal 11.0-15.0 [facility] Comment on above: Performed By: #### C BC #### [facility] [address] [place] [address] Dr. Aleah Peres Hematocrit (Bld) [Volume fraction] 35.5 % Critically low 36.0-48.0 [facility] Comment on above: Performed By: #### C BC #### [facility] [address] [place] [address] Dr. Aleah Peres Hemoglobin (Bld) [Mass/Vol] 11.6 g/dL Critically low 12.0-16.0 [facility] Comment on above: Performed By: #### C BC #### [facility] [address] [place] [address] Dr. Aleah Peres IG # 0.03 10e3/ul Normal 0.00-0.03 [facility] Comment on above: Performed By: #### C BC #### [facility] [address] [place] [address] Dr. Aleah Peres IG % 0.4 % Normal 0.0-0.5 [facility] Comment on above: Performed By: #### C BC #### [facility] [address] [place] [address] Dr. Aleah Peres LYMPH # 2.8 103/ul Normal 1.2-3.8 [facility] Comment on above: Performed By: #### C BC #### [facility] [address] [place] [address] Dr. Aleah Peres Lymphocytes/100 WBC (Bld) 32.9 % Normal 20.5-60.0 [facility] Comment on above: Performed By: #### C BC #### [facility] [address] [place] [address] Dr. Aleah Peres MANUAL DIFF REQ NO Normal [facility] Comment on above: Performed By: #### C BC #### [facility] [address] [place] [address] Dr. Aleah Peres MCH (RBC) [Entitic mass] 26.9 pg Normal 26.7-34.0 [facility] Comment on above: Performed By: #### C BC #### [facility] [address] [place] [address] Dr. Aleah Peres MCHC (RBC) [Mass/Vol] 32.7 g/dL Normal 29.9-35.2 [facility] Comment on above: Performed By: #### C BC #### [facility] [address] [place] [address] Dr. Aleah Peres MCV (RBC) [Entitic vol] 82.4 fL Normal 81.0-99.0 [facility] Comment on above: Performed By: #### C BC #### [facility] [address] [place] [address] Dr. Aleah Peres MONO # 0.7 103/ul Normal 0.3-0.8 [facility] Comment on above: Performed By: #### C BC #### [facility] [address] [place] [address] Dr. Aleah Peres Monocytes/100 WBC (Bld) 8.6 % Normal 1.7-12.0 [facility] Comment on above: Performed By: #### C BC #### [facility] [address] [place] [address] Dr. Aleah Peres NEUT # 4.8 103/ul Normal 1.4-6.5 [facility] Comment on above: Performed By: #### C BC #### [facility] [address] [place] [address] Dr. Aleah Peres Neutrophils/100 WBC (Bld) 56.4 % Normal 43.0-75.0 [facility] Comment on above: Performed By: #### C BC #### [facility] [address] [place] [address] Dr. Aleah Peres Platelet mean volume (Bld) [Entitic vol] 9.9 fL Normal 9.5-13.5 [facility] Comment on above: Performed By: #### C BC #### [facility] [address] [place] [address] Dr. Aleah Peres PLT 316 103/ul Normal 150-450 [facility] Comment on above: Performed By: #### C BC #### [facility] [address] [place] [address] Dr. Aleah Peres RBC 4.31 106/ul Normal 4.20-5.40 [facility] Comment on above: Performed By: #### C BC #### [facility] [address] [place] [address] Dr. Aleah Peres WBC 8.4 103/ul Normal 4.0-11.0 [facility] Comment on above: Performed By: #### C BC #### [facility] [address] [place] [address] Dr. Aleah Peres PREG QUANT HCGon 09-15-2022 HCG QUANT 00975 mIU/mL Normal [facility] Comment on above: Performed By: #### P REGQNT #### [facility] [address] [place], [place] [address] Dr. Aleah Peres HCG RANGE SEE BELOW Normal [facility] Comment on above: Result Comment: 5-50 0.2-1 WEEK 50-500 1-2 WEEKS 100-5,000 2-3 WEEKS 500-10,000 3-4 WEEKS 1,000-50,000 4-5 WEEKS 10,000-100,000 5-6 WEEKS 15,000-200,000 6-8 WEEKS 10,000-100,000 2-3 MONTHS Performed By: #### P REGQNT #### [facility] [address] [place], [place] [address] Dr. Aleah Peres TYPE AND SCREENon 09-15-2022 TYPE AND SCREEN Negative Normal [facility] Comment on above: Performed By: #### P REGQNT #### [facility] [address] [id number] [address] Aleah Peres US PELVISon 09-15-2022 US PELVIS EXAMINATION: US PELVIS HISTORY: Spontaneous COMPARISON: No relevant comparison available. TECHNIQUE: Transabdominal and transvaginal sonographic examination. FINDINGS: UTERUS: Small amount of fluid within endometrial cavity. No visible retained products of conception. IMPRESSION: 1. No appreciable retained products of conception within uterine cavity. Electronically authenticated by: ASHLEY NOEL Date: 2022-09-15 15:42 Normal [facility] US PREG TVon 09-13-2022 US PREG [...] Right ovary was not identified. Normal [facility] CBC AUTO DIFFon 08-16-2022 BASO # 0.0 103/ul Normal 0.0-0.1 [facility] Comment on above: Performed By: #### C BC #### [facility] [address] [place] [address] Dr. Aleah Peres Basophils/100 WBC (Bld) 0.4 % Normal 0.2-2.0 [facility] Comment on above: Performed By: #### C BC #### [facility] [address] [place] [address] Dr. Aleah Peres EO # 0.1 103/ul Normal 0.0-0.7 [facility] Comment on above: Performed By: #### C BC #### [facility] [address] [place] [address] Dr. Aleah Peres Eosinophils/100 WBC (Bld) 1.4 % Normal 0.9-7.0 [facility] Comment on above: Performed By: #### C BC #### [facility] [address] [place] [address] Dr. Aleah Peres Erythrocyte distribution width (RBC) [Ratio] 13.6 % Normal 11.0-15.0 [facility] Comment on above: Performed By: #### C BC #### [facility] [address] [place] [address] Dr. Aleah Peres Hematocrit (Bld) [Volume fraction] 32.4 % Critically low 36.0-48.0 [facility] Comment on above: Performed By: #### C BC #### [facility] [address] [place] [address] Dr. Aleah Peres Hemoglobin (Bld) [Mass/Vol] 11.2 g/dL Critically low 12.0-16.0 [facility] Comment on above: Performed By: #### C BC #### [facility] [address] [place] [address] Dr. Aleah Peres IG # 0.02 10e3/ul Normal 0.00-0.03 [facility] Comment on above: Performed By: #### C BC #### [facility] [address] [place] [address] Dr. Aleah Peres IG % 0.3 % Normal 0.0-0.5 [facility] Comment on above: Performed By: #### C BC #### [facility] [address] [place] [address] Dr. Aleah Peres LYMPH # 2.4 103/ul Normal 1.2-3.8 [facility] Comment on above: Performed By: #### C BC #### [facility] [address] [place] [address] Dr. Aleah Peres Lymphocytes/100 WBC (Bld) 32.3 % Normal 20.5-60.0 [facility] Comment on above: Performed By: #### C BC #### [facility] [address] [place] [address] Dr. Aleah Peres MANUAL DIFF REQ NO Normal [facility] Comment on above: Performed By: #### C BC #### [facility] [address] [place] [address] Dr. Aleah Peres MCH (RBC) [Entitic mass] 26.9 pg Normal 26.7-34.0 [facility] Comment on above: Performed By: #### C BC #### [facility] [address] [place] [address] Dr. Aleah Peres MCHC (RBC) [Mass/Vol] 34.6 g/dL Normal 29.9-35.2 [facility] Comment on above: Performed By: #### C BC #### [facility] [address] [place] [address] Dr. Aleah Peres MCV (RBC) [Entitic vol] 77.9 fL Critically low 81.0-99.0 [facility] Comment on above: Performed By: #### C BC #### [facility] [address] [place] [address] Dr. Aleah Peres MONO # 0.7 103/ul Normal 0.3-0.8 [facility] Comment on above: Performed By: #### C BC #### [facility] [address] [place] [address] Dr. Aleah Peres Monocytes/100 WBC (Bld) 9.1 % Normal 1.7-12.0 [facility] Comment on above: Performed By: #### C BC #### [facility] [address] [place] [address] Dr. Aleah Peres NEUT # 4.1 103/ul Normal 1.4-6.5 [facility] Comment on above: Performed By: #### C BC #### [facility] [address] [place] [address] Dr. Aleah Peres Neutrophils/100 WBC (Bld) 56.5 % Normal 43.0-75.0 [facility] Comment on above: Performed By: #### C BC #### [facility] [address] [place] [address] Dr. Aleah Peres Platelet mean volume (Bld) [Entitic vol] 9.4 fL Critically low 9.5-13.5 [facility] Comment on above: Performed By: #### C BC #### [facility] [address] [place] [address] Dr. Aleah Peres PLT 303 103/ul Normal 150-450 [facility] Comment on above: Performed By: #### C BC #### [facility] [address] [place] [address] Dr. Aleah Peres RBC 4.16 106/ul Critically low 4.20-5.40 [facility] Comment on above: Performed By: #### C BC #### [facility] [address] [place] [address] Dr. Aleah Peres WBC 7.3 103/ul Normal 4.0-11.0 [facility] Comment on above: Performed By: #### C BC #### [facility] [address] [place] [address] Dr. Aleah Peres ER URINE PROFILEon 3 Bilirubin Ql (U) Negative Normal NEGATIVE [facility] Comment on above: Performed By: #### E RUR #### [facility] [address] [place] [address] Dr. Aleah Peres Clarity (U) CLEAR Normal CLEAR [facility] Comment on above: Performed By: #### E RUR #### [facility] [address] [place] [address] Dr. Aleah Peres Color (U) YELLOW Normal YELLOW [facility] Comment on above: Performed By: #### E RUR #### [facility] [address] [place] [address] Dr. Aleah OMALLEY A micrscopic examination will be performed if indicated. Normal [facility] Comment on above: Performed By: #### E RUR #### [facility] [address] [place] [address] Dr. Aleah Peres Glucose Ql (U) Negative Normal NEGATIVE [facility] Comment on above: Performed By: #### E RUR #### [facility] [address] [place] [address] Dr. Aleah Peres Hemoglobin Ql (U) Negative Normal NEGATIVE [facility] Comment on above: Performed By: #### E RUR #### [facility] [address] [place] [address] Dr. Aleah Peres Ketones Ql (U) Negative Normal NEGATIVE [facility] Comment on above: Performed By: #### E RUR #### [facility] [address] [place] [address] Dr. Aleah Peres LEUKOCYTES Negative Normal NEGATIVE [facility] Comment on above: Performed By: #### E RUR #### [facility] [address] [place] [address] Dr. Aleah Peres Nitrite Ql (U) Negative Normal NEGATIVE [facility] Comment on above: Performed By: #### E RUR #### [facility] [address] [place] [address] Dr. Aleah Peres pH (U) 6.0 [pH] Normal 5-9 [facility] Comment on above: Performed By: #### E RUR #### [facility] [address] [place] [address] Dr. Aleah Peres SPEC GRAVITY 1.020 Normal 1.005-<=1.025 [facility] Comment on above: Performed By: #### E RUR #### [facility] [address] [place] [address] Dr. Aleah Peres UA PROTEIN Negative Normal NEGATIVE/ TRACE [facility] Comment on above: Performed By: #### E RUR #### [facility] [address] [place] [address] Dr. Aleah Peres UR MICRO IND NOT INDICATED Normal [facility] Comment on above: Performed By: #### E RUR #### [facility] [address] [place] [address] Dr. Aleah Peres Urobilinogen Qn (U) 0.2 {Edmund'U}/dL Normal 0.2 - 1. 0 [facility] Comment on above: Performed By: #### E RUR #### [facility] [address] [place] [address] Dr. Aleah Peres PROF 14(COMP METB)on 023 Albumin [Mass/Vol] 3.0 g/dL Critically low 3.4-5.0 [facility] Comment on above: Performed By: #### C MP #### [facility] [address] [place] [address] Dr. Aleah Peres Albumin/Globulin [Mass ratio] 0.8 {ratio} Normal [facility] Comment on above: Performed By: #### C MP #### [facility] [address] [place] [address] Dr. Aleah Peres ALP [Catalytic activity/Vol] 52 U/L Normal 46-116 [facility] Comment on above: Performed By: #### C MP #### [facility] [address] [place] [address] Dr. Aleah Peres ALT [Catalytic activity/Vol] 15 U/L Normal 14-59 [facility] Comment on above: Performed By: #### C MP #### [facility] [address] [place] [address] Dr. Aleah Peres Anion gap [Moles/Vol] 10.2 mmol/L Normal [facility] Comment on above: Performed By: #### C MP #### [facility] [address] [address] [address] Aleah Peres AST [Catalytic activity/Vol] 13 U/L Critically low 15-37 [facility] Comment on above: Performed By: #### C MP #### [facility] [address] [place] [address] Dr. Aleah Peres Bilirubin [Mass/Vol] 0.2 mg/dL Normal 0.2-1.0 [facility] Comment on above: Performed By: #### C MP #### [facility] [address] [place] [address] Dr. Aleah Peres Calcium [Mass/Vol] 9.1 mg/dL Normal 8.5-10.1 [facility] Comment on above: Performed By: #### C MP #### [facility] [address] [place] [address] Dr. Aleah Peres Chloride [Moles/Vol] 100 mmol/L Normal 98-107 [facility] Comment on above: Performed By: #### C MP #### [facility] [address] [place] [address] Dr. Aleah Peres CO2 [Moles/Vol] 28.8 mmol/L Normal 21.0-32.0 [facility] Comment on above: Performed By: #### C MP #### [facility] [address] [place] [address] Dr. Aleah Peres Creatinine [Mass/Vol] 0.56 mg/dL Normal 0.55-1.02 [facility] Comment on above: Performed By: #### C MP #### [facility] [address] [place] [address] Dr. Aleah Peres EGFR-AF [place] >60 Normal >=60 [facility] Comment on above: Performed By: #### C MP #### [facility] [address] [address] [address] Aleah Peres EGFR-NON AF [place] >60 Normal >=60 [facility] Comment on above: Performed By: #### C MP #### [facility] [address] [address] [address] Aleah Peres Globulin (S) [Mass/Vol] 3.9 g/dL Normal [facility] Comment on above: Performed By: #### C MP #### [facility] [address] [address] [address] Aleah Peres Glucose [Mass/Vol] 90 mg/dL Normal 74-106 [facility] Comment on above: Performed By: #### C MP #### [facility] [address] [address] [address] Aleah Peres Potassium [Moles/Vol] 4.0 mmol/L Normal 3.5-5.1 [facility] Comment on above: Performed By: #### C MP #### [facility] [address] [address] [address] Aleah Peres Protein [Mass/Vol] 6.9 g/dL Normal 6.4-8.2 [facility] Comment on above: Performed By: #### C MP #### [facility] [address] [address] [address] Aleah Peres Sodium [Moles/Vol] 135 mmol/L Critically low 136-145 [facility] Comment on above: Performed By: #### C MP #### [facility] [address] [address] [address] Aleah Peres Urea nitrogen [Mass/Vol] 4.0 mg/dL Critically low 7.0-18.0 [facility] Comment on above: Performed By: #### C MP #### [facility] [address] [address] [address] Aleah Peres Urea nitrogen/Creatinine [Mass ratio] 7.1 mg/mg Normal [facility] Comment on above: Performed By: #### C MP #### [facility] [address] [place] [address] Dr. Aleah Peres PAP ACOG PANEL 2: 21 to 29on 08-02-2022 . . Normal [facility] Comment on above: Result Comment: Perf ormed at: WB Performed By: #### [id number] #### [facility] [address] [place] [address] Dr. Aleah Peres Age Gdln ACOG Testing - Normal [facility] Comment on above: Performed By: #### [id number] #### [facility] [address] [place] [address] Dr. Aleah Peres DIAGNOSIS: Comment Abnormal [facility] Comment on above: Result Comment: EPIT HELIAL CELL ABNORMALITY. LOW GRADE SQUAMOUS INTRAEPITHELIAL LESION (LSIL). Performed at: WB Performed By: #### [id number] #### [facility] [address] [place] [address] Dr. Aleah Peres Electronically signed by: Comment Normal [facility] Comment on above: Result Comment: Amena Arciniega MD, Pathologist Performed at: WB Performed By: #### [id number] #### [facility] [address] [place] [address] Dr. Aleah Peres Methodology: Comment [facility] Comment on above: Result Comment: This liquid based ThinPrep(R) pap test was screened with the use of an image guided system. Performed at: WB Performed By: #### [id number] #### [facility] [address] [place] [address] Dr. Aleah Peres Note: Comment Normal [facility] Comment on [...] Performed at: WB Performed By: #### [id number] #### [facility] [address] [place] [address] Dr. Aleah Peres Pathologist Provided ICD10 Comment Normal [facility] Comment on above: Result Comment: [id number] Performed at: WB Performed By: #### [id number] #### [facility] [address] [address] [address] Aleah Peres Performed by: Comment Normal [facility] Comment on above: Result Comment: Caitlyn Crenshaw, Acquisition Advisor (ASCP) Performed at: BA Performed By: #### [id number] #### [facility] [address] [address] [address] Aleah Peres Recommendation: Comment Abnormal [facility] Comment on above: Result Comment: Sugg est follow up as clinically appropriate. Performed at: WB Performed By: #### [id number] #### [facility] [address] [address] [address] Aleah Peres Reflex Criteria: Comment Normal [facility] Comment on above: Result Comment: The HPV DNA reflex criteria were not met with this specimen result therefore, no HPV testing was performed. . Performed at: WB Performed By: #### [id number] #### [facility] [address] [address] [address] Aleah Peres Specimen adequacy: Comment Normal [facility] Comment on above: Result Comment: Sati sfactory for evaluation. Endocervical and/or squamous metaplastic cells (endocervical component) are present. Performed at: WB Performed By: #### [id number] #### [facility] [address] [address] [address] Aleah Pe[facility] SARS-CoV-2 (COVID-19) RNA MARY ELLEN+probe Ql (Unsp spec) Not detected Normal NOT DETECTED [facility] Comment on above: Result Comment: When [...] for this test is supported by the Receiving Manager of Health and Human Service's declaration that [...] used). Performed By: #### P REGQNT #### [facility] [address] [place] [address] Dr. Aleah Peres Vital Signs Date Time Vital Sign Value Performing Clinician Faci lity 06-07-2024 13:39-0500 Body mass index (BMI) [Ratio] 31.35 kg/m2 [facility] 06-07-2024 13:39-0500 Body weight 81.56 kg [facility] 06-07-2024 13:39-0500 Diastolic blood pressure 70 mm[Hg] [facility] 06-07-2024 13:39-0500 Systolic blood pressure 118 mm[Hg] [facility] 05-31-2024 09:40-0500 Body mass index (BMI) [Ratio] 30.86 kg/m2 Amy VILLATORO Work Phone: [facility] 05-31-2024 09:40-0500 Body weight 80.29 kg Amy VILLATORO Work Phone: [facility] 05-31-2024 09:40-0500 Diastolic blood pressure 72 mm[Hg] Amy VILLATORO Work Phone: [facility] 05-31-2024 09:40-0500 Systolic blood pressure 118 mm[Hg] Amy VILLATORO Work Phone: [facility] 08-31-2023 13:43-0500 Body mass index (BMI) [Ratio] 33.2 kg/m2 Teresita Ayesha DO Work Phone: [facility] 08-31-2023 13:43-0500 Body weight 86.36 kg Teresita Ayesha DO Work Phone: [facility] 08-31-2023 13:43-0500 Diastolic blood pressure 70 mm[Hg] Teresita Ayesha DO Work Phone: [facility] 08-31-2023 13:43-0500 Systolic blood pressure 114 mm[Hg] Teresita Ayesha DO Work Phone: [facility] Encounters Encounter Date Encounter Type Care Provider Facility Start: 06-14-2024 End: 06-14-2024 Clinisync Result Encounter Teresita Ayesha DO Work Phone: [facility] External Department Unsolicited Start: 06-14-2024 End: 06-14-2024 Clinisync Result Encounter Teresita Ayesha DO Work Phone: [facility] External Department Unsolicited Start: 06-07-2024 End: 06-07-2024 Office outpatient visit 5 minutes [facility] Ayesha Nurse [facility] Comment on above: GA: 9w1d Start: 06-07-2024 End: 06-07-2024 ambulatory AMY DOBBINS Not Available Start: 05-31-2024 End: 05-31-2024 Bamboo flowsheet Amy VILLATORO Work Phone: [facility] Start: 05-31-2024 End: 05-31-2024 Bamboo flowsheet Amy VILLATORO Work Phone: [facility] Start: 05-31-2024 End: 05-31-2024 ambulatory AMY DOBBINS Not Available Start: 05-31-2024 End: 05-31-2024 Office outpatient visit 15 minutes Amy VILLATORO Work Phone: [facility] Comment on above: 8 weeks [...] 08-31-2023 Office outpatient visit 15 minutes Teresita Hodge DO Work Phone: [facility] Comment on above: Third trimester preg hanh Start: 08-31-2023 End: 08-31-2023 ambulatory TERESITA AYESHA Not Available Start: 08-10-2023 End: 08-10-2023 ambulatory [facility] Not Available Start: 07-13-2023 End: 07-13-2023 ambulatory TERESITA AYESHA Not Available Start: 06-13-2023 End: 06-13-2023 ambulatory [facility] Not Available Start: 11-10-2022 End: 11-10-[address] ALEXIA BARRETT . Facility: Start: 10-22-2022 End: 10-23-2022 ambulatory NATASHA CAMARA . Facility: Start: 10-08-2022 End: 10-09-2022 ambulatory ALEXIA BARRETT Facility:[facility] Start: 10-08-2022 End: 10-08-[address] ALEXIA BARRETT . Facility: Start: 10-06-2022 End: 10-07-[address] ALEXIA BARRETT . Facility: Start: 09-17-2022 Encounter for other preprocedural examination DR TERESITA HODGE . [facility] Start: 09-15-2022 End: 09-16-2022 ambulatory TERESITA HODGE Facility:[facility] Start: 09-15-2022 End: 09-15-[address] [...] 06-07-2022 End: 06-08-[address] MAGDA MARTINEZ Facility:[facility] Procedures Date Procedure Procedure Detail Performing Clinician Start: 06-14-2024 BOX TEST Tereista Fazi o DO Work Phone: Start: 06-07-2024 Urnls dip stick/tabl et rgnt non-auto w/o micrscp Teresita Ayesha DO Work Phone: Start: 08-31-2023 Urnls dip stick/tabl et rgnt non-auto w/o micrscp Teresita Ayesha DO Work Phone: Start: 11-10-2022 Cytp cerv/vag auto t hin layer prep mnl screen Teresita Ayesha DO Work Phone: Plan of Treatment Date Care Activity Detail Author Start: 07-09-2024 End: 07-09-2024 Patient encounter procedure 07/09/2024 2:50 PM EST Routine [facility] [address] [place] [address] Teresita Hodge, DO [address] [place] [address] [facility] Start: 06-07-2024 End: 06-07-2025 ABO/Rh ABO/Rh Lab Routine Missed menses , unspecified gestational age Expected: 06/07/2024 (Approximate), Expires: 06/07/2025 [facility] Comment on above: Expected: 06/07/2024 (Approximate), Expires: 06/07/2025 Start: 06-07-2024 End: 06-07-2025 Blood type and Indirect antibody screen panel - Blood Type and screen Lab Routine Missed menses , unspecified gestational age Expected: 06/07/2024 (Approximate), Expires: 06/07/2025 [facility] Work Phone: Comment on above: Expected: 06/07/2024 (Approximate), Expires: 06/07/2025 Start: 06-07-2024 End: 06-07-2025 Drugs of abuse panel - Urine by Screen method Rapid drug screen, urine Lab Routine , unspecified gestational age Encounter for supervision of normal first in first trimester Expected: 06/07/2024 (Approximate), Expires: 06/07/2025 [facility] Comment on above: Expected: 06/07/2024 (Approximate), Expires: 06/07/2025 Start: 06-07-2024 End: 06-07-2024 ambulatory 06/07/2024 1:30 PM EST Initial [facility] [address] [place] [id number] [facility] Start: 06-07-2024 End: 06-07-2024 Professional / ancillary services management 06/07/2024 1:00 PM EST Ancillary Procedure [facility] [address] [place] [address] [place] [id number] [facility] Start: 09-14-2023 End: 09-14-2023 Patient encounter procedure 09/14/2023 3:50 PM EST Routine [facility] [address] [place] [address] [place] [id number] Amy Dobbins PA [address] [place], [place] [id number] [facility] Bacteria identified in Urine by Culture Urine culture Microbiology Routine Missed menses Ordered: 06/07/2024 [facility] Comment on above: Ordered: 06/07/2024 CBC W Auto Different ial panel - Blood CBC and differential Lab Routine Missed menses , unspecified gestational age Ordered: 06/07/2024 [facility] Comment on above: Ordered: 06/07/2024 Hemoglobin A1c/Hemoglobin.total in Blood Hemoglobin A1c Lab Routine Missed menses , unspecified gestational age Ordered: 06/07/2024 [facility] Comment on above: Ordered: 06/07/2024 Hepatitis B virus surface Ag [Presence] in Serum or Plasma by Immunoassay Hepatitis B surface antigen Lab Routine Missed menses , unspecified gestational age Ordered: 06/07/2024 [facility] Comment on above: Ordered: 06/07/2024 Hepatitis C virus Ab [Presence] in Serum or Plasma by Immunoassay Hepatitis C antibody Lab Routine Missed menses , unspecified gestational age Ordered: 06/07/2024 [facility] Comment on above: Ordered: 06/07/2024 HIV-1/HIV-2 antigen/antibody combination immunoassay HIV-1 and HIV-2 antibodies Lab Routine Missed menses , unspecified gestational age Ordered: 06/07/2024 [facility] Comment on above: Ordered: 06/07/2024 Reagin Ab [Presence] in Serum by RPR RPR Lab Routine Missed menses , unspecified gestational age Ordered: 06/07/2024 [facility] Comment on above: Ordered: 06/07/2024 Rubella antibody, IgG Rubella an tibody, IgG Lab Routine Missed menses , unspecified gestational age Ordered: 06/07/2024 [facility] Comment on above: Ordered: 06/07/2024 Payers Date Payer Category Payer Medicaid [id number] 2022 Medicaid [id number] 1999 Unknown [id number] 2.16.84 0.1.670316.3.579.2.593 1999 Unknown [id number] 2.16.84 0.1.711258.3.579.2.593 1999 Unknown [id number] 2.16.84 0.1.215633.3.579.2.593 1999 Unknown [id number] 2.16.84 0.1.980063.3.579.2.593 1999 Unknown [id number] 2.16.84 0.1.004950.3.579.2.593 1999 Unknown [id number] 2.16.84 0.1.821908.3.579.2.593 1999 Unknown [id number] 2.16.84 0.1.542187.3.579.2.593 1999 Unknown [id number] 2.16.84 0.1.766691.3.579.2.593 1999 Unknown [id number] 2.16.84 0.1.696589.3.579.2.593 1999 Unknown [id number] 2.16.84 0.1.115608.3.579.2.593 1999 Unknown [id number] 2.16.84 0.1.265300.3.579.2.1259 1999 Unknown [id number] 2.16.84 0.1.770608.3.579.2.1259 1999 Unknown [id number] 2.16.84 0.1.146079.3.579.2.1259 1999 Unknown [id number] 2.16.84 0.1.675906.3.579.2.1259 1999 Unknown [id number] 2.16.84 0.1.851757.3.579.2.1259 1999 Unknown [id number] 2.16.84 0.1.091971.3.579.2.1259 1999 Unknown [id number] 2.16.84 0.1.126509.3.579.2.1259 1999 Unknown [id number] 2.16.84 0.1.297464.3.579.2.1259 1999 Unknown [id number] 2.16.84 0.1.439981.3.579.2.1259 1999 Unknown [id number] 2.16.840 .1.885321.3.579.2.1259 1999 Unknown [id number] 2.16.840 .1.361660.3.579.2.1259 1959 Unknown [id number] 1959 Unknown [id number] Social History Date Type Detail Facility Start: 04-18-2023 Tobacco smoking stat [facility] Never smoked tobacco [facility] Start: 08-31-2023 End: 06-07-2024 Alcohol intake Lifetime non-drinker (finding) [facility] Start: 06-13-2023 History of Social function [facility] Start: 06-13-2023 Tobacco use panel [facility] Start: 04-18-2023 Alcohol Comment caffeine: none [facility] Start: 02-17-2023 [facility] Start: 2000 Sex Assigned At Not on file [facility] History of Present illness Narrative 06-07-2024 Brianna Perry, ENGINEERING AND SCIENTIFIC PROGRAMMER - 06/07/2024 1:30 PM EST Note Date & Type Note Facility 06-07-2024 History of Presen t illness Narrative Reason for Appointment: Patient ID: Alexandra Higgins is a 23 y.o. female who presents for Amenorrhea Patient presents today for a Nurse OB Intake appointment. Patient is 9w1d with a Estimated Date of Delivery: 01/09/25 OB History Para Term AB Living 3 1 1 1 1 SAB IAB Ectopic Multiple Live Births 1 1 # Outcome Date GA Lbr Randolph/2nd Weight Sex Type Anes PTL Lv 3 Current 2 10/19/23 36w6d Vag-Spont 1 SAB Comments: MAB; D and C on 09/15/2022 Current Medications: has a current medication list which includes the following prescription(s): mv-min-fe fum-fa-dha. Medical History: Active Ambulatory Problems Diagnosis Date Noted Amenorrhea [...] DILATION AND CURETTAGE 10/08/2022 No Known Allergies Vitals: Estimated body mass index is 31.35 kg/m as calculated from the following: Height as of 11/10/22: 5' 3.5 . Weight as of this encounter: 179 lb 12.8 oz. BP: 118/70 Patient's last menstrual period was 04/04/2024. Assessment/Plan Diagnoses and all orders for this visit: Missed menses - Type and screen; Future - ABO/Rh; Future - CBC and differential - Hemoglobin A1c - RPR - Rubella antibody, IgG - Hepatitis B surface antigen - Hepatitis C antibody - HIV-1 and HIV-2 antibodies - Urine culture - POCT , urine manually resulted - POCT urinalysis dipstick manually resulted , unspecified gestational age - Type and screen; Future - ABO/Rh; Future - CBC and differential - Hemoglobin A1c - RPR - Rubella antibody, IgG - Hepatitis B surface antigen - Hepatitis C antibody - HIV-1 and HIV-2 antibodies - Rapid drug screen, urine; Future Encounter for supervision of normal first in first trimester - Rapid drug screen, urine; Future Nurse Note: OB Intake: Patient presents today for first OB visit. Patients history has been reviewed in great detail including any potential risks. Patient signed consent forms and patient desires testing in both trimesters. Patient currently has no complaints and has been advised to drink 6-8 glasses of water a day, eat no raw or undercooked meat, and stay away from [facility]. Patient has also been advised to not change litter boxes and eat 6 small meals a day. Patient has been consulted regarding the do's and don'ts of . Patient was given labs and all questions and concerns were answered. Follow Up: Patient is to return in 4 weeks for routine OB appointment. Follow Up: Patient is to have labs drawn at directed and return to office for initial OB appointment with provider. Patient may call office as needed with any concerns or questions. Nurse Visit Completed by: Brianna Perry LPN documented in this encounter [facility] History of Present illness Narrative 05-31-2024 [...] of Present illness Narrative 08-31-2023 Sharon Hare, WARNER - 08/31/2023 1:40 PM EST Note Date [...] nursing note reviewed. Exam conducted with a mechanical laboratory technician present. Vitals: Estimated body mass index is [...] Teresita Hodge DO documented in this encounter [facility] Clinical Note 09-15-2022 Note Date [...] by: ASHLEY NOEL Date: 2022-09-15 07:41 [facility] Clinical Note 09-15-2022 Note Date & Type Note Facility 09-15-2022 Note OPERATIVE NOTE OPERATION DATE: 09/15/2022 PROCEDURE: Suction D AND C. PREOPERATIVE DIAGNOSIS: First trimester missed at 10 weeks. POSTOPERATIVE DIAGNOSIS: First trimester missed at 10 weeks. ANESTHESIA: General. SURGEON: Teresita Hodge D.O. DOMAIN ARCHITECT: None. FINDINGS: Products of conception. SPECIMEN: Products [...] Recovery Room in stable condition. ?? [facility] Evaluation note Note Date & Type Note Facility Evaluation note Diagnosis Third trimester state, incidental documented in this encounter [facility] Evaluation note Note Date & Type Note Facility Evaluation note Diagnosis 8 weeks gestation of Cramping affecting , antepartum documented in this encounter [facility] Evaluation note Note Date & Type Note Facility Evaluation note Diagnosis Missed menses , unspecified gestational age Encounter for supervision of normal first in first trimester documented in this encounter [facility] Summary Purpose Family History No Family History Records FoundNo Family History Records FoundNo Family History Records Found Advance Directives No Advanced Directives Records FoundNo Advanced Directives Records FoundNo Advanced Directives Records Found Additional Source Comments INFORMATION SOURCE (unrecogn ized section and content) DATE CREATED AUTHOR 10/12/2022 [facility] DATE CREATED AUTHOR AUTHOR'S ORGANIZ ATION 12/08/2022 [facility] DATE CREATED AUTHOR AUTHOR'S ORGANIZ ATION 06/10/2024 [facility] EPIC Reason for Visit (unrecogniz ed section and content) Reason Comments Routine Visit Reason Comments Abdominal Cramping Pt is currently preg nant @ 8 weeks. Pt complains of cramping and dehydrated w/. Reason Comments Amenorrhea FOR RECORDS PERTAINING TO PATIENTS WHO ARE [...] BE BASED ON THE PRIMARY CLINICAL RECORDS. [employer] provides no warranty or guarantee of the accuracy or completeness of [phone] in [phone] [id number]
== END 2024-06-22 10:09 | disposition home or self-care (01) ==
LOC: US 10:08
PROVIDERS: Visit Provider Obstetrics & Gynecology
DX: Z36.86 Encounter for antenatal screening for cervical length (principal); Z3A.11 11 weeks gestation of pregnancy
CPT/HCPCS: 76817

== ENCOUNTER 2024-07-06 07:16 | Outpatient (OUT) | payer MEDICAID, SELFPAY ==
--- OUTSIDE RECORDS SUMMARY | 2024-07-06 07:18 | XMS_ITS | CCD ---
Author Organization [facility] Care Team Providers Care Billing Representative Name Role Phone ALEXIA BARRETT Attending Unavailable [...] Care Provider Unavailcaitlyn kraus MU, Attending Unavailable AEYSHA, TERESITA Attending Unavailable MU, Attending Unavailable MU, [...] Drug Class(es) Dates Sig (Normalized) Sig (Original) [id number] 200 actuat albuterol 0.09 mg/actuat metered dose [...] time. 0 09/21/2022 08/31/2023 Discontinued (Therapy completed) WX-Wqa-ZH-[place]-3 ( Gummies/DHA & FA) 0.4-32.5 MG chewable tablet (1 source) Start: 03-03-2023 End: 08-31-2023 ZX-Lgp-RP-[place]-3 ( Gummies/DHA & FA) 0.4-32.5 MG chewable [...] BOX TESTon 06-14-2024 BOX TEST SENT OUT [facility] BOX1 [facility] e BOX2 06/14/24 [facility] BOX [facility] e HCG ( test) Ql (U)o n 06-07-2024 Interpretation and review of laboratory results Abnormal [facility] Preg Test, Ur Positive Negative [facility] Urinalysis macro (dipstick) panel (U)on 06-07-2024 Bilirubin, UA Negative Negative - 4(70) +++ mg/dL [facility] Blood, UA Negative Negative - 50 William/mcL [facility] Clarity, UA Clear [facility] re Color, UA Yellow [facility] e Glucose, UA Negative Negative - 2000(110) ++++ mg/dL [facility] Interpretation and review of laboratory results Abnormal [facility] Ketones, UA Negative Negative - 160(16) ++++ mg/dL [facility] Leukocytes, UA Positive Negative - 500+++ Roma/mcL [facility] Comment on above: small Nitrite, UA Negative Negative - Positive [facility] pH, UA 7.5 5 - 9 [facility] Protein, UA Negative Negative - 2000(20) ++++ mg/dL [facility] Spec Grav, UA 1.02 1 - 1.03 [facility] Urobilinogen, UA 0.2 0.2 - 12 mg/dL [facility] Urinalysis macro (dipstick) panel (U)Ordered By: Shantel Rangel on 08-31-2023 Bilirubin, UA Negative Negative - 4(70) +++ mg/dL [facility] Blood, UA Negative Negative - 50 William/mcL [facility] Clarity, UA Clear [facility] re Color, UA Yellow [facility] Glucose, UA Negative Negative - 1999(110) ++++ mg/dL [facility] Interpretation and review of laboratory results Abnormal [facility] Ketones, UA Positive Negative - 160(16) ++++ mg/dL [facility] Leukocytes, UA Trace Negative - 500+++ Roma/mcL [facility] Nitrite, UA Negative Negative - Positive [facility] pH, UA 7.5 5 - 9 [facility] Protein, UA Trace Negative - 1999(20) ++++ mg/dL [facility] Spec Grav, UA 1.020 1 - 1.03 [facility] Urobilinogen, UA 0.2 0.2 - 12 mg/dL [facility] PAP ACOG PANEL 2: 21 to 29on 11-17-2022 . . Normal [facility] Comment on above: Performed By: #### [id number] #### [facility] [address] [address] [address] Aleah Peres Age Gdln ACOG Testing - Normal [facility] Comment on above: Performed By: #### 4 [id number] #### [facility] [address] [address] [address] Aleah Peres DIAGNOSIS: Comment [facility] Comment on above: Result Comment: NEGA TIVE FOR INTRAEPITHELIAL LESION OR MALIGNANCY. Performed By: #### 4 [id number] #### [facility] [address] [place] [address] Dr. Aleah Peres Methodology: Comment Normal [facility] Comment on above: Result Comment: This liquid based ThinPrep(R) pap test was screened with the use of an image guided system. Performed By: #### 4 [id number] #### [facility] [address] [place] [address] Dr. Aleah Peres Note: Comment Normal [facility] Comment on above: Result Comment: The Pap smear is a screening test designed to aid in the detection of premalignant and malignant conditions of the uterine cervix. It is not a diagnostic procedure and should not be used as the sole means of detecting cervical cancer. Both false-positive and false-negative reports do occur. . Performed By: #### 4 [id number] #### [facility] [address] [place] [address] Dr. Aleah Peres Performed by: Comment Normal [facility] Comment on above: Result Comment: Annelise Martinez Maintenance Shop Technician Performed By: #### 4 [id number] #### [facility] [address] [place] [address] Dr. Aleah Peres Reflex Criteria: Comment Normal [facility] Comment on above: Result Comment: The HPV DNA reflex criteria were not met with this specimen result therefore, no HPV testing was performed. . Performed By: #### 4 [id number] #### [facility] [address] [place] [address] Dr. Aleah Peres Specimen adequacy: Comment Normal [facility] Comment on above: Result Comment: Sati sfactory for evaluation. Endocervical and/or squamous metaplastic cells (endocervical component) are present. Performed By: #### 4 [id number] #### [facility] [address] [place] [address] Dr. Aleah Peres Cytology Cervical or vaginal smear or scraping studyon 11-10-2022 [facility] OCC BLD IMMUNO SCREENon OCCULT BLOOD Negative Normal NEGATIVE [facility] Comment on above: Performed By: #### O BSCRN #### [facility] [address] [place] [address] Dr. Aleah Peres SURGICAL PATH REPORTon 10-11 SURGICAL PATH REPORT [facility] Department of Pathology [address] [place] [phone] Name: CAMERON HIGGINS : 2000 [facility] [id number] Number: [facility] : n: Admit 22 years Attending ALEXIA BARRETT Age: Provider: Ordering ALEXIA BARRETT Provider: [facility]ology Report ng: ACCESSION: COLLECTED DATE/TIME: RECEIVED DATE/TIME: PATHOLOGIST: [id number] 10/08/2022 12:03 EDT 10/08/2022 12:03 EDT TOM AGUERO MD Final Diagnosis Report for [facility] [place] [place] RETAINED PR[employer]CTS OF CONCEPTION: - CHORIONIC [...] ald 10/08/2022 Tissue pathology report for: [facility] [place], [address] [place] [address]; ____ Print 10/11/2022 15:01 EDT Number: Date/Time: [facility] Department of Pathology [address] [place] [phone] Name: CAMERON HIGGINS : 2000 [employer] [id number] Number: Gender Female Peter GARCIA : n: Admit 22 years Attending ALEXIA BARRETT Age: Provider: Ordering ALEXIA BARRETT Provider: [facility] Pathology Report ng: ACCESSION: COLLECTED DATE/TIME: RECEIVED DATE/TIME: PATHOLOGIST: [id number] 10/08/2022 12:03 EDT 10/08/2022 12:03 EDT LACI KHAN, TOM Gross Description PATHOLOGY SERVICES PROVIDED BY [facility] (CLIA #[id number]) in cooperation with [facility] at [address] [place] [address] ( CLIA #[id number]) Codes CPT CODE: 46051 ____ Print 10/11/2022 15:01 EDT Number: Date/Time: Normal [facility] Comment on above: Performed By: #### 9 [id number] #### [facility] [address] [place], [place] [id number] Geodetic Advisor: Tom Aguero MD URon 10-08-2022 , QUAL Negative Normal NEGATIVE [facility] Comment on above: Performed By: #### P REGU #### [facility] [address] [place] [address] Dr. Aleah Peres US PELVIS AND TRANSVAGon [...] 2022-10-06 14:55 Normal [facility] SURGICAL PATH REPORTon 09-16 SURGICAL PATH REPORT [facility] Department of Pathology [address] [place] [phone] Name: ALEXANDRA HIGGINS : 2000 [facility] [id number] Number: Gender Female [facility] : n: Admit 22 years Attending TERESITA HODGE Age: Provider: Ordering TERESITA HODGE Provider: [facility] Pathology Report ng: ACCESSION: COLLECTED DATE/TIME: RECEIVED DATE/TIME: PATHOLOGIST: [id number] 09/15/2022 12:34 EST 09/15/2022 12:34 HENRY MOREIRA MD, LUIS ERAZO Final Diagnosis Report for [facility] [place] [place] PRODUCTS OF CONCEPTION, DILATION AND CURETTAGE: [...] cm. There are no grossly identifiable parts. Supervisor Marble sections are submitted in three cassettes. MP/ald 09/15/2022 ____ Print 09/16/2022 14:53 EST Number: Date/Time: [facility] Department of Pathology [address] [place] [phone] Name: ALEXANDRA HIGGINS : 2000 [facility] [id number] Number: Gender Female [facility] : n: Admit 22 years Attending TERESITA HODGE Age: Provider: Ordering TERESITA HODGE Provider: Consulti Surgical Pathology Report ng: ACCESSION: COLLECTED DATE/TIME: RECEIVED DATE/TIME: PATHOLOGIST: [id number] 09/15/2022 12:34 EST 09/15/2022 12:34 EST LILLIE KHAN, LUIS ERAZO Gross Description Tissue pathology report for: [facility] [place], [address] [place] [address]; PATHOLOGY SERVICES PROVIDED BY [facility] (CLIA #[id number]) in cooperation with [facility] at [address] [place] [id number] ( CLIA #[id number]) Codes CPT CODE: 39705 ____ Print 09/16/2022 14:53 EST Number: Date/Time: Normal [facility] Comment on above: Performed By: #### 9 [id number] #### [facility] [address] [place] [address] Geodetic Advisor: Tom Aguero MD CBC AUTO DIFFon 09-15-2022 BASO # 0.0 103/ul Normal 0.0-0.[address] [facility] Comment on above: Performed By: #### C BC #### [facility] [address] [place] [address] Dr. Aleah Peres Basophils/100 WBC (Bld) 0.4 % Normal 0.2-2.[address] [facility] Comment on above: Performed By: #### C BC #### [facility] [address] [place] [address] Dr. Aleah Peres EO # 0.1 103/ul Normal 0.0-0.[address] [facility] Comment on above: Performed By: #### C BC #### [facility] [address] [place] [address] Dr. Aleah Peres Eosinophils/100 WBC (Bld) 1.3 % Normal 0.9-7.[address] [facility] Comment on above: Performed By: #### C BC #### [facility] [address] [place] [address] Dr. Aleah Peres Erythrocyte distribution width (RBC) [Ratio] 13.8 % Normal 11.0-15.[address] [facility] Comment on above: Performed By: #### C BC #### [facility] [address] [place] [address] Dr. Aleah Peres Hematocrit (Bld) [Volume fraction] 35.5 % Critically low 36.0-48.[address] [facility] Comment on above: Performed By: #### C BC #### [facility] [address] [place] [address] Dr. Aleah Peres Hemoglobin (Bld) [Mass/Vol] 11.6 g/dL Critically low 12.0-16.[address] [facility] Comment on above: Performed By: #### C BC #### [facility] [address] [place] [address] Dr. Aleah Peres IG # 0.03 10e3/ul Normal 0.00-0.[address] [facility] Comment on above: Performed By: #### C BC #### [facility] [address] [place] [address] Dr. Aleah Peres IG % 0.4 % Normal 0.0-0.[address] [facility] Comment on above: Performed By: #### C BC #### [facility] [address] [place] [address] Dr. Aleah Peres LYMPH # 2.8 103/ul Normal 1.2-3.[address] [facility] Comment on above: Performed By: #### C BC #### [facility] [address] [place] [address] Dr. Aleah Peres Lymphocytes/100 WBC (Bld) 32.9 % Normal 20.5-60.[address] [facility] Comment on above: Performed By: #### C BC #### [facility] [address] [place] [address] Dr. Aleah Peres MANUAL DIFF REQ NO Normal [facility] Comment on above: Performed By: #### C BC #### [facility] [address] [place] [address] Dr. Aleah Peres MCH (RBC) [Entitic mass] 26.9 pg Normal 26.7-34.[address] [facility] Comment on above: Performed By: #### C BC #### [facility] [address] [place] [address] Dr. Aleah Peres MCHC (RBC) [Mass/Vol] 32.7 g/dL Normal 29.9-35.2 [facility] Comment on above: Performed By: #### C BC #### [facility] [address] [place] [address] Dr. Aleah Peres MCV (RBC) [Entitic vol] 82.4 fL Normal 81.0-99.[address] [facility] Comment on above: Performed By: #### C BC #### [facility] [address] [place] [address] Dr. Aleah Peres MONO # 0.7 103/ul Normal 0.3-0.[address] [facility] Comment on above: Performed By: #### C BC #### [facility] [address] [place] [address] Dr. Aleah Peres Monocytes/100 WBC (Bld) 8.6 % Normal 1.7-12.[address] [facility] Comment on above: Performed By: #### C BC #### [facility] [address] [place] [address] Dr. Aleah Peres NEUT # 4.8 103/ul Normal 1.4-6.[address] [facility] Comment on above: Performed By: #### C BC #### [facility] [address] [place] [address] Dr. Aleah Peres Neutrophils/100 WBC (Bld) 56.4 % Normal 43.0-75.[address] [facility] Comment on above: Performed By: #### C BC #### [facility] [address] [place] [address] Dr. Aleah Peres Platelet mean volume (Bld) [Entitic vol] 9.9 fL Normal 9.5-13.[address] [facility] Comment on above: Performed By: #### C BC #### [facility] [address] [place] [address] Dr. Aleah Peres PLT 316 103/ul Normal 150-450 [facility] Comment on above: Performed By: #### C BC #### [facility] [address] [place] [address] Dr. Aleah Peres RBC 4.31 106/ul Normal 4.20-5.40 [facility] Comment on above: Performed By: #### C BC #### [facility] [address] [place] [address] Dr. Aleah Peres WBC 8.4 103/ul Normal 4.0-11.0 [facility] Comment on above: Performed By: #### C BC #### [facility] [address] [place] [address] Dr. Aleah Peres PREG QUANT HCGon 09-15-2022 HCG QUANT 91472 mIU/mL Normal [facility] Comment on above: Performed By: #### P REGQNT #### [facility] [address], [place] [address] Dr. Aleah Peres HCG RANGE SEE BELOW Normal [facility] Comment on above: Result Comment: 5-50 0.2-1 WEEK 50-500 1-2 WEEKS 100-5,000 2-3 WEEKS 500-10,000 3-4 WEEKS 1,000-50,000 4-5 WEEKS 10,000-100,000 5-6 WEEKS 15,000-200,000 6-8 WEEKS 10,000-100,000 2-3 MONTHS Performed By: #### P REGQNT #### [facility] [address], [place] [address] Dr. Aleah Peres TYPE AND SCREENon 09-15-2022 TYPE AND SCREEN Negative Normal [facility] Comment on above: Performed By: #### P REGQNT #### [facility] [address] [id number] Aleah Peres US PELVISon 09-15-2022 US PELVIS EXAMINATION: US PELVIS HISTORY: Spontaneous COMPARISON: No relevant comparison available. TECHNIQUE: Transabdominal and transvaginal sonographic examination. FINDINGS: UTERUS: Small amount of fluid within endometrial cavity. No visible retained products of conception. IMPRESSION: 1. No appreciable retained products of conception within uterine cavity. Electronically authenticated by: ASHLEY NOEL Date: 2022-09-15 15:42 Normal [facility] US PREG TVon 09-13-2022 US PREG TV [...] not identified. Normal [facility] CBC AUTO DIFFon 08-16-2022 BASO # 0.0 103/ul Normal 0.0-0.1 [facility] Comment on above: Performed By: #### C BC #### [facility] [address] [place] [address] Dr. Aleah Peres Basophils/100 WBC (Bld) 0.4 % Normal 0.2-2.0 [facility] Comment on above: Performed By: #### C BC #### [facility] [address] [place] [address] Dr. Aleah Peres EO # 0.1 103/ul Normal 0.0-0.7 [facility] Comment on above: Performed By: #### C BC #### [facility] [address] [place] [address] Dr. Aleah Peres Eosinophils/100 WBC (Bld) 1.4 % Normal 0.9-7.0 [facility] Comment on above: Performed By: #### C BC #### [facility] [address] [place] [address] Dr. Aleah Peres Erythrocyte distribution width (RBC) [Ratio] 13.6 % Normal 11.0-15.0 [facility] Comment on above: Performed By: #### C BC #### [facility] [address] [place] [address] Dr. Aleah Peres Hematocrit (Bld) [Volume fraction] 32.4 % Critically low 36.0-48.[address] [facility] Comment on above: Performed By: #### C BC #### [facility] [address] [place] [address] Dr. Aleah Peres Hemoglobin (Bld) [Mass/Vol] 11.2 g/dL Critically low 12.0-16.[address] [facility] Comment on above: Performed By: #### C BC #### [facility] [address] [place] [address] Dr. Aleah Peres IG # 0.02 10e3/ul Normal 0.00-0.[address] [facility] Comment on above: Performed By: #### C BC #### [facility] [address] [place] [address] Dr. Aleah Peres IG % 0.3 % Normal 0.0-0.[address] [facility] Comment on above: Performed By: #### C BC #### [facility] [address] [place] [address] Dr. Aleah Peres LYMPH # 2.4 103/ul Normal 1.2-3.[address] [facility] Comment on above: Performed By: #### C BC #### [facility] [address] [place] [address] Dr. Aleah Peres Lymphocytes/100 WBC (Bld) 32.3 % Normal 20.5-60.[address] [facility] Comment on above: Performed By: #### C BC #### [facility] [address] [place] [address] Dr. Aleah Peres MANUAL DIFF REQ NO Normal [facility] Comment on above: Performed By: #### C BC #### [facility] [address] [place] [address] Dr. Aleah Peres MCH (RBC) [Entitic mass] 26.9 pg Normal 26.7-34.[address] [facility] Comment on above: Performed By: #### C BC #### [facility] [address] [place] [address] Dr. Aleah Peres MCHC (RBC) [Mass/Vol] 34.6 g/dL Normal 29.9-35.[address] [facility] Comment on above: Performed By: #### C BC #### [facility] [address] [place] [address] Dr. Aleah Peres MCV (RBC) [Entitic vol] 77.9 fL Critically low 81.0-99.[address] [facility] Comment on above: Performed By: #### C BC #### [facility] [address] [place] [address] Dr. Aleah Peres MONO # 0.7 103/ul Normal 0.3-0.[address] [facility] Comment on above: Performed By: #### C BC #### [facility] [address] [place] [address] Dr. Aleah Peres Monocytes/100 WBC (Bld) 9.1 % Normal 1.7-12.[address] [facility] Comment on above: Performed By: #### C BC #### [facility] [address] [place] [address] Dr. Aleah Peres NEUT # 4.1 103/ul Normal 1.4-6.[address] [facility] Comment on above: Performed By: #### C BC #### [facility] [address] [place] [address] Dr. Aleah Peres Neutrophils/100 WBC (Bld) 56.5 % Normal 43.0-75.[address] [facility] Comment on above: Performed By: #### C BC #### [facility] [address] [place] [address] Dr. Aleah Peres Platelet mean volume (Bld) [Entitic vol] 9.4 fL Critically low 9.5-13.[address] [facility] Comment on above: Performed By: #### C BC #### [facility] [address] [place] [address] Dr. Aleah Peres PLT 303 103/ul Normal 150-450 [facility] Comment on above: Performed By: #### C BC #### [facility] [address] [place] [address] Dr. Aleah Peres RBC 4.16 106/ul Critically low 4.20-5.40 [facility] Comment on above: Performed By: #### C BC #### [facility] [address] [place] [address] Dr. Aleah Peres WBC 7.3 103/ul Normal 4.0-11.[address] [facility] Comment on above: Performed By: #### C BC #### [facility] [address] [place] [address] Dr. Aleah Peres ER URINE PROFILEon 3 Bilirubin Ql (U) Negative Normal NEGATIVE [facility] Comment on above: Performed By: #### E RUR #### [facility] [address] [place] [address] Dr. Aleah Peres Clarity (U) CLEAR Normal CLEAR [facility] Comment on above: Performed By: #### E RUR #### [facility] [address] [place] [address] Dr. Aleah Peres Color (U) YELLOW Normal YELLOW [facility] Comment on above: Performed By: #### E RUR #### [facility] [address] [place] [address] Dr. Aleah OMALLEY A micrscopic examination will be performed if indicated. Normal [facility] Comment on above: Performed By: #### E RUR #### [facility] [address] [place] [address] Dr. Aleah Peres Glucose Ql (U) Negative Normal NEGATIVE [facility] Comment on above: Performed By: #### E RUR #### [facility] [address] [place] [address] Dr. Aleah Peres Hemoglobin Ql (U) Negative Normal NEGATIVE [facility] Comment on above: Performed By: #### E RUR #### [facility] [address] [place] [address] Dr. Aleah Peres Ketones Ql (U) Negative Normal NEGATIVE The [facility] Comment on above: Performed By: #### E RUR #### [facility] [address] [place] [address] Dr. Aleah Peres LEUKOCYTES Negative Normal NEGATIVE [facility] Comment on above: Performed By: #### E RUR #### [facility] [address] [place] [address] Dr. Aleah Peres Nitrite Ql (U) Negative Normal NEGATIVE [facility] Comment on above: Performed By: #### E RUR #### [facility] [address] [place] [address] Dr. Aleah Peres pH (U) 6.0 [pH] Normal 5-[address] [facility] Comment on above: Performed By: #### E RUR #### [facility] [address] [place] [address] Dr. Aleah Peres SPEC GRAVITY 1.020 Normal 1.005-<=1.025 The [facility] Comment on above: Performed By: #### E RUR #### [facility] [address] [place] [address] Dr. Aleah Peres UA PROTEIN Negative Normal NEGATIVE/ TRACE The [facility] Comment on above: Performed By: #### E RUR #### [facility] [address] [place] [address] Dr. Aleah Peres UR MICRO IND NOT INDICATED Normal [facility] Comment on above: Performed By: #### E RUR #### [facility] [address] [place] [address] Dr. Aleah Peres Urobilinogen Qn (U) 0.2 {Edmund'U}/dL Normal 0.2 - 1. [address] [facility] Comment on above: Performed By: #### E RUR #### [facility] [address] [place] [address] Dr. Aleah Peres PROF 14(COMP METB)on 023 Albumin [Mass/Vol] 3.0 g/dL Critically low 3.4-5.0 [facility] Comment on above: Performed By: #### C MP #### [facility] [address] [place] [address] Dr. Aleah Peres Albumin/Globulin [Mass ratio] 0.8 {ratio} Normal [facility] Comment on above: Performed By: #### C MP #### [facility] [address] [place] [address] Dr. Aleah Peres ALP [Catalytic activity/Vol] 52 U/L Normal 46-[address] [facility] Comment on above: Performed By: #### C MP #### [facility] [address] [place] [address] Dr. Aleah Peres ALT [Catalytic activity/Vol] 15 U/L Normal 14-59 The [facility] Comment on above: Performed By: #### C MP #### [facility] [address] [place] [address] Dr. Aleah Peres Anion gap [Moles/Vol] 10.2 mmol/L Normal [facility] Comment on above: Performed By: #### C MP #### [facility] [address] [address] [address] Aleah Peres AST [Catalytic activity/Vol] 13 U/L Critically low 15-[address] [facility] Comment on above: Performed By: #### C MP #### [facility] [address] [place] [address] Dr. Aleah Peres Bilirubin [Mass/Vol] 0.2 mg/dL Normal 0.2-1.[address] [facility] Comment on above: Performed By: #### C MP #### [facility] [address] [place] [address] Dr. Aleah Peres Calcium [Mass/Vol] 9.1 mg/dL Normal 8.5-10.1 [facility] Comment on above: Performed By: #### C MP #### [facility] [address] [place] [address] Dr. Aleah Peres Chloride [Moles/Vol] 100 mmol/L Normal 98-107 The [facility] Comment on above: Performed By: #### C MP #### [facility] [address] [place] [address] Dr. Aleah Peres CO2 [Moles/Vol] 28.8 mmol/L Normal 21.0-32.0 The [facility] Comment on above: Performed By: #### C MP #### [facility] [address] [place] [address] Dr. Aleah Peres Creatinine [Mass/Vol] 0.56 mg/dL Normal 0.55-1.[address] [facility] Comment on above: Performed By: #### C MP #### [facility] [address] [place] [address] Dr. Aleah Peres EGFR-AF LUXEMBOURGER >60 Normal >=60 The [facility] Comment on above: Performed By: #### C MP #### [facility] [address] [address] [address] Aleah Peres EGFR-NON AF LUXEMBOURGER >60 Normal >=[address] [facility] Comment on above: Performed By: #### C MP #### [facility] [address] [address] [address] Aleah Peres Globulin (S) [Mass/Vol] 3.9 g/dL Normal [facility] Comment on above: Performed By: #### C MP #### [facility] [address] [address] [address] Aleah Peres Glucose [Mass/Vol] 90 mg/dL Normal 74-106 [facility] Comment on above: Performed By: #### C MP #### [facility] [address] [address] [address] Aleah Peres Potassium [Moles/Vol] 4.0 mmol/L Normal 3.5-5.[address] [facility] Comment on above: Performed By: #### C MP #### [facility] [address] [address] [address] Aleah Peres Protein [Mass/Vol] 6.9 g/dL Normal 6.4-8.2 The [facility] Comment on above: Performed By: #### C MP #### [facility] [address] [address] [address] Aleah Peres Sodium [Moles/Vol] 135 mmol/L Critically low 136-145 Th [facility] Comment on above: Performed By: #### C MP #### [facility] [address] [address] [address] Aleah Peres Urea nitrogen [Mass/Vol] 4.0 mg/dL Critically low 7.0-18.[address] [facility] Comment on above: Performed By: #### C MP #### [facility] [address] [address] [address] Aleah Peres Urea nitrogen/Creatinine [Mass ratio] 7.1 mg/mg Normal [facility] Comment on above: Performed By: #### C MP #### [facility] [address] [place] [address] Dr. Aleah Peres PAP ACOG PANEL 2: 21 to 29on 08-02-2022 . . Normal [facility] Comment on above: Result Comment: Perf ormed at: WB Performed By: #### [id number] #### [facility] [address] [place] [address] Dr. Aleah Peres Age Gdln ACOG Testing - Normal [facility] Comment on above: Performed By: #### [id number] #### [facility] [address] [place] [address] Dr. Aleah Peres DIAGNOSIS: Comment Abnormal [facility] Comment on above: Result Comment: EPIT HELIAL CELL ABNORMALITY. LOW GRADE SQUAMOUS INTRAEPITHELIAL LESION (LSIL). Performed at: WB Performed By: #### [id number] #### [facility] [address] [place] [address] Dr. Aleah Peres Electronically signed by: Comment Normal [facility] Comment on above: Result Comment: Amena Arciniega MD, Pathologist Performed at: WB Performed By: #### [id number] #### [facility] [address] [place] [address] Dr. Aleah Peres Methodology: Comment [facility] Comment on above: Result Comment: This liquid based ThinPrep(R) pap test was screened with the use of an image guided system. Performed at: WB Performed By: #### [id number] #### [facility] [address] [place] [address] Dr. Aleah Peres Note: Comment Normal [facility] Comment on above: Result Comment: The Pap smear is a screening test designed to aid in the detection of premalignant and malignant conditions of the uterine cervix. It is not a diagnostic procedure and should not be used as the sole means of detecting cervical cancer. Both false-positive and false-negative reports do occur. . Performed at: WB Performed By: #### [id number] #### [facility] [address] [place] [address] Dr. Aleah Peres Pathologist Provided ICD10 Comment Normal [facility] Comment on above: Result Comment: R87. [id number] Performed at: WB Performed By: #### [id number] #### [facility] [address] [address] [address] Aleah Peres Performed by: Comment Normal [facility] Comment on above: Result Comment: Caitlyn Crenshaw, Maintenance Shop Technician (ASCP) Performed at: BA Performed By: #### [id number] #### [facility] [address] [address] [address] Aleah Peres Recommendation: Comment Abnormal [facility] Comment on above: Result Comment: Sugg est follow up as clinically appropriate. Performed at: WB Performed By: #### [id number] #### [facility] [address] [address] [address] Aleah Peres Reflex Criteria: Comment Normal [facility] Comment on above: Result Comment: The HPV DNA reflex criteria were not met with this specimen result therefore, no HPV testing was performed. . Performed at: WB Performed By: #### [id number] #### [facility] [address] [address] [address] Aleah Peres Specimen adequacy: Comment Normal The [facility] Comment on above: Result Comment: Sati sfactory for evaluation. Endocervical and/or squamous metaplastic cells (endocervical component) are present. Performed at: WB Performed By: #### [id number] #### [facility] [address] [address] [address] Aleah Peres [facility]25 SARS-CoV-2 (COVID-19) RNA MARY ELLEN+probe Ql (Unsp spec) Not detected Normal NOT DETECTED The [facility] Comment on above: Result Comment: When diagnostic [...] for this test is supported by the Planning Management It Specialist of Health and Human Service's declaration that [...] #### P REGQNT #### [facility] [address] [place] [address] Dr. Aleah Peres Vital Signs Date Time Vital Sign Value Performing Clinician Faci lity 06-07-2024 13:39-0500 Body mass index (BMI) [Ratio] 31.35 kg/m2 [facility] Nurse [facility] 06-07-2024 13:39-0500 Body weight 81.56 kg [facility] Nurse [facility] 06-07-2024 13:39-0500 Diastolic blood pressure 70 mm[Hg] [facility] Nurse [facility] 06-07-2024 13:39-0500 Systolic blood pressure 118 mm[Hg] [facility] Nurse [facility] 05-31-2024 09:40-0500 Body mass index (BMI) [Ratio] 30.86 kg/m2 Amy VILLATORO Work Phone: [facility] 05-31-2024 09:40-0500 Body weight 80.29 kg Amy VILLATORO Work Phone: [facility] 05-31-2024 09:40-0500 Diastolic blood pressure 72 mm[Hg] Amy VILLATORO Work Phone: [facility] 05-31-2024 09:40-0500 Systolic blood pressure 118 mm[Hg] Amy VILLATORO Work Phone: [facility] 08-31-2023 13:43-0500 Body mass index (BMI) [Ratio] 33.2 kg/m2 Teresita Ayesha DO Work Phone: [facility] 08-31-2023 13:43-0500 Body weight 86.36 kg Teresita Ayesha DO Work Phone: [facility] 08-31-2023 13:43-0500 Diastolic blood pressure 70 mm[Hg] Teresita Ayesha DO Work Phone: [facility] 08-31-2023 13:43-0500 Systolic blood pressure 114 mm[Hg] Teresita Ayesha DO Work Phone: [facility] Encounters Encounter Date Encounter Type Care Provider Facility Start: 06-14-2024 End: 06-14-2024 Clinisync Result Encounter Teresita Ayesha DO Work Phone: [facility] External Department Unsolicited Start: 06-14-2024 End: 06-14-2024 Clinisync Result Encounter Teresita Ayesha DO Work Phone: [facility] External Department Unsolicited Start: 06-07-2024 End: 06-07-2024 Office outpatient visit 5 minutes [facility] Ayesha Nurse [facility] Comment on above: GA: 9w1d Start: 06-07-2024 End: 06-07-2024 ambulatory AMY DOBBINS Not Available Start: 05-31-2024 End: 05-31-2024 Bamboo flowsheet Amy VILLATORO Work Phone: [facility] Start: 05-31-2024 End: 05-31-2024 Bamboo flowsheet Amy VILLATORO Work Phone: [facility] Start: 05-31-2024 End: 05-31-2024 ambulatory AMY DOBBINS Not Available Start: 05-31-2024 End: 05-31-2024 Office outpatient visit 15 minutes Amy VILLATORO Work Phone: [facility] Comment on above: 8 weeks [...] Start: 10-08-2022 End: 10-09-2022 ambulatory ALEXIA BARRETT Facility:[facility] Start: 10-08-2022 End: 10-08-[address] ALEXIA BARRETT . Facility: Start: 10-06-2022 End: 10-07-[address] ALEXIA BARRETT . Facility: Start: 09-17-2022 Encounter for other preprocedural examination DR TERESITA HODGE . The [facility] Start: 09-15-2022 End: 09-16-2022 ambulatory TERESITA HODGE Facility:[facility] Start: 09-15-2022 End: 09-15-[address] TERESITA [...] Detail Performing Clinician Start: 06-14-2024 BOX TEST Teresita Fazi o DO Work Phone: Start: 06-07-2024 [...] encounter procedure 07/09/2024 2:50 PM EST Routine [facility] [address] [place] [address] Teresita Hogde, DO [address] [place] [address] [facility] Start: 06-07-2024 End: 06-07-2025 ABO/Rh ABO/Rh Lab Routine Missed menses , unspecified gestational age Expected: 06/07/2024 (Approximate), Expires: 06/07/2025 [facility] Comment on above: Expected: 06/07/2024 (Approximate), [...] first trimester Expected: 06/07/2024 (Approximate), Expires: 06/07/2025 [facility] Comment on above: Expected: 06/07/2024 (Approximate), Expires: 06/07/2025 Start: 06-07-2024 End: 06-07-2024 ambulatory 06/07/2024 1:30 PM EST Initial [facility] [address] [place] [id number] [facility] Start: 06-07-2024 End: 06-07-2024 Professional / ancillary services management 06/07/2024 1:00 PM EST Ancillary Procedure [facility] [address] [place] [address] [place] [id number] [facility] Start: 09-14-2023 End: 09-14-2023 Patient encounter procedure 09/14/2023 3:50 PM EST Routine [facility] [address] [place] [address] [place] [id number] Amy Dobbins PA [address] [place], [place] [id number] [facility] Bacteria identified in Urine by Culture Urine culture Microbiology Routine Missed menses Ordered: 06/07/2024 [facility] Comment on above: Ordered: 06/07/2024 CBC W Auto Different ial panel - Blood CBC and differential Lab Routine Missed menses , unspecified gestational age Ordered: 06/07/2024 [facility] Comment on above: Ordered: 06/07/2024 Hemoglobin A1c/Hemoglobin.total in Blood Hemoglobin A1c Lab Routine Missed menses , unspecified gestational age Ordered: 06/07/2024 [facility] Comment on above: Ordered: 06/07/2024 Hepatitis B virus surface Ag [Presence] in Serum or Plasma by Immunoassay Hepatitis B surface antigen Lab Routine Missed menses , unspecified gestational age Ordered: 06/07/2024 [facility] Comment on above: Ordered: 06/07/2024 Hepatitis C virus Ab [Presence] in Serum or Plasma by Immunoassay Hepatitis C antibody Lab Routine Missed menses , unspecified gestational age Ordered: 06/07/2024 [facility] Comment on above: Ordered: 06/07/2024 HIV-1/HIV-2 antigen/antibody combination immunoassay HIV-1 and HIV-2 antibodies Lab Routine Missed menses , unspecified gestational age Ordered: 06/07/2024 [facility] Comment on above: Ordered: 06/07/2024 Reagin Ab [Presence] in Serum by RPR RPR Lab Routine Missed menses , unspecified gestational age Ordered: 06/07/2024 [facility] Comment on above: Ordered: 06/07/2024 Rubella antibody, IgG Rubella an tibody, IgG Lab Routine Missed menses , unspecified gestational age Ordered: 06/07/2024 [facility] Comment on above: Ordered: 06/07/2024 Payers Date Payer Category Payer Medicaid [id number] 2022 Medicaid [id number] 1999 Unknown [id number] 2.16.84 0.1.627573.3.579.2.593 1999 Unknown [id number] 2.16.84 0.1.122607.3.579.2.593 1999 Unknown [id number] 2.16.84 0.1.908526.3.579.2.593 1999 Unknown [id number] 2.16.84 0.1.069366.3.579.2.593 1999 Unknown [id number] 2.16.84 0.1.218638.3.579.2.593 1999 Unknown [id number] 2.16.84 0.1.148879.3.579.2.593 1999 Unknown [id number] 2.16.84 0.1.826350.3.579.2.593 1999 Unknown [id number] 2.16.84 0.1.857465.3.579.2.593 1999 Unknown [id number] 2.16.84 0.1.630100.3.579.2.593 1999 Unknown [id number] 2.16.84 0.1.466797.3.579.2.593 1999 Unknown [id number] 2.16.84 0.1.419253.3.579.2.1259 1999 Unknown [id number] 2.16.84 0.1.906551.3.579.2.1259 1999 Unknown [id number] 2.16.84 0.1.472427.3.579.2.1259 1999 Unknown [id number] 2.16.84 0.1.967112.3.579.2.1259 1999 Unknown [id number] 2.16.84 0.1.889922.3.579.2.1259 1999 Unknown [id number] 2.16.84 0.1.717935.3.579.2.1259 1999 Unknown [id number] 2.16.84 0.1.418718.3.579.2.1259 1999 Unknown [id number] 2.16.84 0.1.401227.3.579.2.1259 1999 Unknown [id number] 2.16.84 0.1.935129.3.579.2.1259 1999 Unknown [id number] 2.16.840 .1.361418.3.579.2.1259 1999 Unknown [id number] 2.16.840 .1.959749.3.579.2.1259 1959 Unknown [id number] 1959 Unknown [id number] Social History Date Type Detail Facility Start: 04-18-2023 Tobacco smoking stat [facility] Never smoked tobacco [facility] Start: 08-31-2023 End: 06-07-2024 Alcohol intake Lifetime non-drinker (finding) [facility] Start: 06-13-2023 History of Social function [facility] Start: 06-13-2023 Tobacco use panel [facility] Start: 04-18-2023 Alcohol Comment caffeine: none [facility] Start: 02-17-2023 [facility] Start: 2000 Sex Assigned At Not on file [facility] History of Present illness Narrative 06-07-2024 Brianna Perry, FRUIT WORKER - 06/07/2024 1:30 PM EST Note Date [...] or undercooked meat, and stay away from [facility]. Patient has also been advised to [...] nursing note reviewed. Exam conducted with a agricultural systems specialist present. Vitals: Estimated body mass index is [...] Hodge DO documented in this encounter [facility] Clinical Note 09-15-2022 Note Date & Type [...] by: ASHLEY NOEL Date: 2022-09-15 07:41 [facility] Clinical Note 09-15-2022 Note Date & Type Note Facility 09-15-2022 Note OPERATIVE NOTE OPERATION DATE: 09/15/2022 PROCEDURE: Suction D AND C. PREOPERATIVE DIAGNOSIS: First trimester missed at 10 weeks. POSTOPERATIVE DIAGNOSIS: First trimester missed at 10 weeks. ANESTHESIA: General. SURGEON: Teresita Hodge D.O. SHIFT MANAGER: None. FINDINGS: Products of conception. SPECIMEN: Products [...] products of conception were removed using an 9-Grenadian suction curette. Excellent hemostasis was noted. The patient tolerated the procedure well. Sponge, lap, and needle counts were correct x 2. All instruments were then removed from the patient's vagina. The patient was taken to the Recovery Room in stable condition. ?? [facility] Evaluation note Note Date & Type Note Facility Evaluation note Diagnosis Third trimester state, incidental documented in this encounter [facility] Evaluation note Note Date & Type Note Facility Evaluation note Diagnosis 8 weeks gestation of Cramping affecting , antepartum documented in this encounter [facility] Evaluation note Note Date & Type [...] section and content) DATE CREATED AUTHOR 10/12/2022 [facility] DATE CREATED AUTHOR AUTHOR'S ORGANIZ ATION 12/08/2022 [facility] DATE CREATED AUTHOR AUTHOR'S ORGANIZ ATION 06/10/2024 [facility] Specialists EPIC Reason for Visit [...] BE BASED ON THE PRIMARY CLINICAL RECORDS. [employer] provides no warranty or guarantee of the accuracy or completeness of information in this document.
--- NOTE | 2024-07-06 07:23 | US_ITS ---
[address] [address] Patient Name: CHULA CHAVEZ MRN: [id number] date: 2000 Sex: F Assigned Patient Location: US Current Patient Location: Accession/Order Number: [id number] Exam Date: 07/06/2024 07:30 Report Date: 07/06/2024 07:56 At the request of: TERESITA ARTHUR Procedure: US OB cervical length EXAMINATION: US OB cervical length HISTORY: Cervical length, Z36.86 COMPARISON: 06/22/2024 FINDINGS: position: Cephalic Heart rate: 153 beats minute Cervix: 4 cm, closed US/US OB cervical length IMPRESSION: The cervix measures 4 cm in length Electronically authenticated by: PIPPA ORTEGA Date: 07/06/2024 07:56
== END 2024-07-06 07:17 | disposition home or self-care (01) ==
LOC: US 07:16
PROVIDERS: Visit Provider Obstetrics & Gynecology
DX: Z36.86 Encounter for antenatal screening for cervical length (principal)
CPT/HCPCS: 76817

== ENCOUNTER 2024-07-16 21:16 | Outpatient (REF) | payer MEDICAID, SELFPAY ==
--- OUTSIDE RECORDS SUMMARY | 2024-07-16 21:20 | XMS_ITS | CCD ---
Author Organization [facility] Care Team Providers Care Vehicle Safety Inspector Name Role Phone ALEXIA BARRETT Attending Unavailable [...] Unavaila ble Unavailable Primary Care Provider Unavailcaitlyn e MU, Attending Unavailable AYESHA, TERESITA Attending Unavailable UM, Attending Unavailable MU, Attending Unavailable AYESHA, TERESITA Attending Unavailable AYESHA, TERESITA Attending Unavailable AYESHA, TERESITA Attending Unavailable MU, Attending Unavailable PAM MENJIVAR Attending Unavailable MU, Attending Unavailable Medications Current Medications Medication Drug Class(es) Dates Sig (Normalized) Sig (Original) MV-Min-Fe Fum-FA-DHA (CENTRUM SPECIALIST PO) (11 sources) take 1 dose by mouth once in the morning MV-Min-Fe Fum-FA-DHA (CENTRUM SPECIALIST PO) Take 1 each by mouth in the morning. Active take 1 dose by mouth once in the morning MV-Min-Fe Fum-FA-DHA (CENTRUM SPECIALIST PO) Take 1 each by mouth in the morning. 0 Active Progesterone 200 MG supposit ory (3 sources) Start: 06-29-2024 End: 07-29-2024 Progesterone 200 MG supposit ory Indications: History of miscarriage Insert 200 mg into the vagina at bedtime Insert suppository vaginally every night at bedtime until 12 weeks gestation 30 suppository 2 06/29/2024 07/29/2024 Active Completed/Discontinued Medications Medication Drug Class(es) Dates Sig (Normalized) Sig (Original) [id number] 200 actuat albuterol 0.09 mg/actuat metered dose inhaler (7 sources) beta2-Adrenergi c Agonist End: 06-07-2024 albuterol [...] time. 0 09/21/2022 08/31/2023 Discontinued (Therapy completed) EU-Oje-SY-Riverton-3 ( Gummies/DHA & FA) 0.4-32.5 MG chewable tablet (1 source) Start: 03-03-2023 End: 08-31-2023 HK-Vmp-WZ-Riverton-3 ( Gummies/DHA & FA) 0.4-32.5 MG chewable tablet Problems Active Problems Problem Classification Problem Date Documented Da te Episodic/Chronic Abdominal pain (1 source) Pelvic and perineal pain; Translations: [PELVIC AND PERINEAL PAIN] Onset: 10-15-2022 Episodic Cancer of cervix (16 sources) Low grade squamous intraepithelial lesion on cytologic smear of cervix (LGSIL); Translations: [Cervicovaginal cytology: Low grade squamous intraepithelial lesion] Onset: 11-10-2022 Episodic Gastrointestinal hemorrhage (4 sources) Melena; Translations: [MELENA] Onset: 10-22-2022 Episodic Menstrual disorders (20 sources) Amenorrhea; Translations: [Amenorrhea, unspecified] Onset: 10-26-2023 10-26-2023 Chronic Other complications of (5 sources) Missed ; Translations: [MISSED ] Onset: 09-15-2022 Episodic Other complications of (2 sources) Uterine contractions problem; Translations: [Other specified related conditions, unspecified trimester] 05-31-2024 Episodic Other nutritional; endocrine; and metabolic disorders (10 sources) Obesity; Translations: [Obesity, unspecified] Onset: 10-26-2023 10-26-2023 Chronic Other and delivery including normal (9 sources) Encounter for test, result positive; Translations: [Third trimester ] Onset: 09-13-2022 Episodic Other screening for suspected conditions (not mental disorders or infectious disease) (9 sources) Encounter for screening for malignant neoplasm of cervix; Translations: [Patient encounter status] Onset: 07-21-2022 Episodic Residual codes; unclassified (2 [...] Classification Problem Date Documented Da te Episodic/Chronic Administrative/social admission (2 sources) Patient encounter status; Translations: [Encounter for pre-employment examination] 03-06-2024 Episodic Conditions associated with dizziness or vertigo (4 sources) Dizziness and giddiness; Translations: [DIZZINESS AND GIDDINESS] Onset: 08-16-2022 Episodic Other complications of (1 source) Other specified related conditions, first trimester; Translations: [OTH SPEC PREG RELATED COND 1ST TRI] Onset: 08-17-2022 Episodic Other female genital disorders (10 sources) Disorder of female genital system; Translations: [...] Reference Range Facility Urinalysis macro (dipstick) panel (U)on 07-16-2024 Bilirubin, UA Negative Negative - 4(70) +++ mg/dL [facility] Blood, UA Negative Negative - 50 William/mcL [facility] Clarity, UA Clear [facility] Color, UA Yellow [facility] Glucose, UA Negative Negative - 2000(110) ++++ mg/dL [facility] Interpretation and review of laboratory results Normal [facility] Ketones, UA Negative Negative - 160(16) ++++ mg/dL [facility] Leukocytes, UA Negative Negative - 500+++ Roma/mcL [facility] Nitrite, UA Negative Negative - Positive [facility] pH, UA 8.5 5 - 9 [facility] Protein, UA Negative Negative - 1999(20) ++++ mg/dL [facility] Spec Grav, UA 1.02 1 - 1.03 [facility] Urobilinogen, UA 0.2 0.2 - 12 mg/dL [facility] BOX TESTon 06-14-2024 BOX TEST SENT OUT [facility]care [address] [facility] BOX2 06/14/24 [facility] e HCG ( test) Ql (U)o n 06-07-2024 Interpretation and review of laboratory results Abnormal [facility] Preg Test, Ur Positive Negative [facility] Urinalysis macro (dipstick) panel (U)on 06-07-2024 Bilirubin, UA Negative Negative - 4(70) +++ mg/dL [facility] Blood, UA Negative Negative - 50 William/mcL [facility] Clarity, UA Clear [facility] re Color, UA Yellow [facility] Glucose, UA Negative Negative - 1999(110) ++++ mg/dL [facility] Interpretation and review of laboratory results Abnormal [facility] Ketones, UA Negative Negative - 160(16) ++++ mg/dL [facility] Leukocytes, UA Positive Negative - 500+++ Roma/mcL [facility] Comment on above: small Nitrite, UA Negative Negative - Positive [facility] pH, UA 7.5 5 - 9 [facility] Protein, UA Negative Negative - 1999(20) ++++ mg/dL [facility] Spec Grav, UA 1.02 1 - 1.03 [facility] Urobilinogen, UA 0.2 0.2 - 12 mg/dL [facility] Urinalysis macro (dipstick) panel (U)Ordered By: Shantel Rangel on 08-31-2023 Bilirubin, UA Negative Negative - 4(70) +++ mg/dL [facility] Blood, UA Negative Negative - 50 William/mcL [facility] Clarity, UA Clear [facility] Color, UA Yellow [facility] Glucose, UA Negative Negative - 1999(110) ++++ mg/dL [facility] Interpretation and review of laboratory results Abnormal [facility] Ketones, UA Positive Negative - 160(16) ++++ mg/dL [facility] Leukocytes, UA Trace Negative - 500+++ Roma/mcL [facility] Nitrite, UA Negative Negative - Positive [facility] pH, UA 7.5 5 - 9 [facility] Protein, UA Trace Negative - 1999(20) ++++ mg/dL [facility] Spec Grav, UA 1.020 1 - 1.03 [facility] Urobilinogen, UA 0.2 0.2 - 12 mg/dL [facility] PAP ACOG PANEL 2: 21 to 29on 11-17-2022 . . Normal [facility] Comment on above: Performed By: #### [id number] #### [facility] [address] [place] [address] Dr. Aleah Peres Age Gdln ACOG Testing - [facility] Comment on above: Performed By: #### [id number] #### [facility] [address] [address] [address] Aleah Peres DIAGNOSIS: Comment [facility] Comment on above: Result Comment: NEGA TIVE FOR INTRAEPITHELIAL LESION OR MALIGNANCY. Performed By: #### 4 [id number] #### [facility] [address] [address] [address] Aleah Peres Methodology: Comment [facility] Comment on above: Result Comment: This liquid based ThinPrep(R) pap test was screened with the use of an image guided system. Performed By: #### 4 [id number] #### [facility] [address] [address] [address] Aleah Peres Note: Comment [facility] Comment on above: Result Comment: The Pap smear is a screening test designed to aid in the detection of premalignant and malignant conditions of the uterine cervix. It is not a diagnostic procedure and should not be used as the sole means of detecting cervical cancer. Both false-positive and false-negative reports do occur. . Performed By: #### 4 [id number] #### [facility] [address] [place] [address] Dr. 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 Aleah Peres Reflex Criteria: Comment Normal [facility] Comment on above: Result Comment: The HPV DNA reflex criteria were not met with this specimen result therefore, no HPV testing was performed. . Performed By: #### 4 [id number] #### [facility] [address] [place] [address] Dr. Aleah Peres Specimen adequacy: Comment Normal [facility] Comment on above: Result Comment: Sati sfactory for evaluation. Endocervical and/or squamous metaplastic cells (endocervical component) are present. Performed By: #### 4 [id number] #### [facility] [address] [place] [address] Dr. Aleah Peres Cytology Cervical or vaginal smear or scraping studyon 11-10-2022 [facility] OCC BLD IMMUNO SCREENon 0 OCCULT BLOOD Negative Normal NEGATIVE [facility] Comment on above: Performed By: #### O BSCRN #### [facility] [address] [place] [address] Dr. Aleah Peres SURGICAL PATH REPORTon 10-11 SURGICAL PATH REPORT [facility] Department of Pathology [address] [place] [phone] Name: CAMERON HIGGINS : 2000 [facility] [id number] Number: Gender Female [facility] : n: Admit 22 years Attending ALEXIA BARRTET Age: Provider: Ordering ALEXIA BARRETT Provider: Consulti Surgical Pathology Report ng: ACCESSION: COLLECTED DATE/TIME: RECEIVED DATE/TIME: PATHOLOGIST: [id number] 10/08/2022 12:03 EDT 10/08/2022 12:03 TOM PAVON MD Final Diagnosis Report for [facility] [place] RETAINED PRODUCTS OF CONCEPTION: - CHORIONIC [...] ald 10/08/2022 Tissue pathology report for: [facility], [address] [place] [id number]; ____ Print 10/11/2022 15:01 EDT Number: Date/Time: [facility] Department of Pathology [address] [place] [phone] Name: CAMERON HIGGINS : 2000 [facility] [id number] Number: [facility] : n: Admit 22 years Attending ALEXIA BARRETT Age: Provider: Ordering ALEXIA BARRETT Provider: Consulti Surgical Pathology Report ng: ACCESSION: COLLECTED DATE/TIME: RECEIVED DATE/TIME: PATHOLOGIST: [id number] 10/08/2022 12:03 EDT 10/08/2022 12:03 EDT TOM AGUERO MD Gross Description PATHOLOGY SERVICES PROVIDED BY [employer] (CLIA #[id number]) in cooperation with [facility] at [address] [place], [place] [id number] ( CLIA #[id number]) Codes CPT CODE: 28079 ____ Print 10/11/2022 15:01 EDT Number: Date/Time: Normal [facility] Comment on above: Performed By: #### 9 [id number] #### [facility] Laboratory Services [address] [place] [address] Bus Van Driver: Tom Aguero MD URon 10-08-2022 , QUAL Negative Normal NEGATIVE [facility] Comment on above: Performed By: #### P REGU #### [facility] [address] [place] [address] Dr. Aleah Peres US PELVIS AND TRANSVAGon [...] PIPPA ORTEGA Date: 2022-10-06 14:55 Normal [facility] SURGICAL PATH REPORTon 09-16 SURGICAL PATH REPORT [facility] Department of Pathology [address] [place] [phone] Name: ALEXANDRA HIGGINS : 2000 [facility] [id number] Number: Gender Female Peter OLMOS [facility] : n: Admit 22 years Attending TERESITA HODGE Age: Provider: Ordering TERESITA HODGE Provider: Consulti Surgical Pathology Report ng: ACCESSION: COLLECTED DATE/TIME: RECEIVED DATE/TIME: PATHOLOGIST: [id number] 09/15/2022 12:34 EST 09/15/2022 12:34 EST LILLIE KHAN, LUIS ERAZO Final Diagnosis Report for [facility] [place] PRODUCTS OF CONCEPTION, DILATION AND CURETTAGE: - CHORIONIC VILLI ARE PRESENT; NO SIGNIFICANT ATYPIA IS OBSERVED. - BENIGN MATERIAL DECIDUA PRESENT. - NO PARTS ARE IDENTIFIED. 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 Received in formalin in a suction sock are multiple irregular segments of medrano pink to red black soft tissue. The individual segments have a variable granular to partially smooth glistening membranous character. The specimen in total aggregate measures 12.5 x 7.5 x 4.0 cm. There are no grossly identifiable parts. Sterile Processing Tech sections are submitted in three cassettes. MP/ald 09/15/2022 ____ Print 09/16/2022 14:53 EST Number: Date/Time: [facility] Department of Pathology [id number] [place] [id number] [phone] Name: ALEXANDRA HIGGINS : 2000 [facility] [id number] Number: Gender Female Peter OLMOS [place] : n: Admit 22 years Attending TERESITA HODGE Age: Provider: Ordering TERESITA HODGE Provider: Consulti Surgical Pathology Report ng: ACCESSION: COLLECTED DATE/TIME: RECEIVED DATE/TIME: PATHOLOGIST: [id number] 09/15/2022 12:34 EST 09/15/2022 12:34 EST LILLIE KHAN, LUIS ERAZO Gross Description Tissue pathology report for: [facility], [address] [place] [address]; PATHOLOGY SERVICES PROVIDED BY [employer] , [facility] (CLIA #[id number]) in cooperation with [facility] at [address] [place] [address] ( CLIA #[id number]) Codes CPT CODE: 30582 ____ Print 09/16/2022 14:53 EST Number: Date/Time: Normal [facility] Comment on above: Performed By: #### 9 [id number] #### [facility] Services [address] [place] [address] Bus Van Driver: Tom Aguero MD CBC AUTO DIFFon 09-15-2022 BASO # 0.0 103/ul Normal 0.0-0.1 [facility] Comment on above: Performed By: #### C BC #### [facility] [address] [place] [address] Dr. Aleah Peres Basophils/100 WBC (Bld) 0.4 % Normal 0.2-2.0 [facility] Comment on above: Performed By: #### C BC #### [facility] [address] [place] [address] Dr. Aleah Peres EO # 0.1 103/ul Normal 0.0-0.7 [facility] Comment on above: Performed By: #### C BC #### [facility] [address] [place] [address] Dr. Aleah Peres Eosinophils/100 WBC (Bld) 1.3 % Normal 0.9-7.0 [facility] Comment on above: Performed By: #### C BC #### [facility] [address] [place] [address] Dr. Aleah Peres Erythrocyte distribution width (RBC) [Ratio] 13.8 % Normal 11.0-15.0 [facility] Comment on above: Performed By: #### C BC #### [facility] [address] [place] [address] Dr. Aleah Peres Hematocrit (Bld) [Volume fraction] 35.5 % Critically low 36.0-48.0 [facility] Comment on above: Performed By: #### C BC #### [facility] [address] [place] [address] Dr. Aleah Peres Hemoglobin (Bld) [Mass/Vol] 11.6 g/dL Critically low 12.0-16.0 [facility] Comment on above: Performed By: #### C BC #### [facility] [address] [place] [address] Dr. Aleah Peres IG # 0.03 10e3/ul Normal 0.00-0.03 [facility] Comment on above: Performed By: #### C BC #### [facility] [address] [place] [address] Dr. Aleah Peres IG % 0.4 % Normal 0.0-0.5 [facility] Comment on above: Performed By: #### C BC #### [facility] [address] [place] [address] Dr. Aleah Peres LYMPH # 2.8 103/ul Normal 1.2-3.8 [facility] Comment on above: Performed By: #### C BC #### [facility] [address] [place] [address] Dr. Aleah Peres Lymphocytes/100 WBC (Bld) 32.9 % Normal 20.5-60.0 [facility] Comment on above: Performed By: #### C BC #### [facility] [address] [place] [address] Dr. Aleah Peres MANUAL DIFF REQ NO Normal [facility] Comment on above: Performed By: #### C BC #### [facility] [address] [place] [address] Dr. Aleah Peres MCH (RBC) [Entitic mass] 26.9 pg Normal 26.7-34.0 [facility] Comment on above: Performed By: #### C BC #### [facility] [address] [place] [address] Dr. Aleah Peres MCHC (RBC) [Mass/Vol] 32.7 g/dL Normal 29.9-35.2 [facility] Comment on above: Performed By: #### C BC #### [facility] [address] [place] [address] Dr. Aleah Peres MCV (RBC) [Entitic vol] 82.4 fL Normal 81.0-99.0 [facility] Comment on above: Performed By: #### C BC #### [facility] [address] [place] [address] Dr. Aleah Peres MONO # 0.7 103/ul Normal 0.3-0.8 [facility] Comment on above: Performed By: #### C BC #### [facility] [address] [place] [address] Dr. Aleah Peres Monocytes/100 WBC (Bld) 8.6 % Normal 1.7-12.0 [facility] Comment on above: Performed By: #### C BC #### [facility] [address] [place] [address] Dr. Aleah Peres NEUT # 4.8 103/ul Normal 1.4-6.5 [facility] Comment on above: Performed By: #### C BC #### [facility] [address] [place] [address] Dr. Aleah Peres Neutrophils/100 WBC (Bld) 56.4 % Normal 43.0-75.0 [facility] Comment on above: Performed By: #### C BC #### [facility] [address] [place] [address] Dr. Aleah Peres Platelet mean volume (Bld) [Entitic vol] 9.9 fL Normal 9.5-13.5 [facility] Comment on above: Performed By: #### C BC #### [facility] [address] [place] [address] Dr. Aleah Peres PLT 316 103/ul Normal 150-450 [facility] Comment on above: Performed By: #### C BC #### [facility] [address] [place] [address] Dr. Aleah Peres RBC 4.31 106/ul Normal 4.20-5.40 [facility] Comment on above: Performed By: #### C BC #### [facility] [address] [place] [address] Dr. Aleah Peres WBC 8.4 103/ul Normal 4.0-11.0 [facility] Comment on above: Performed By: #### C BC #### [facility] [address] [place] [address] Dr. Aleah Peres PREG QUANT HCGon 09-15-2022 HCG QUANT 69667 mIU/mL Normal [facility] Comment on above: Performed By: #### P REGQNT #### [facility] [address] [place] [address] Dr. Aleah Peres HCG RANGE SEE BELOW Normal [facility] Comment on above: Result Comment: 5-50 0.2-1 WEEK 50-500 1-2 WEEKS 100-5,000 2-3 WEEKS 500-10,000 3-4 WEEKS 1,000-50,000 4-5 WEEKS 10,000-100,000 5-6 WEEKS 15,000-200,000 6-8 WEEKS 10,000-100,000 2-3 MONTHS Performed By: #### P REGQNT #### [facility] [address] [place] [address] Dr. Aleah Peres TYPE AND SCREENon 09-15-2022 TYPE AND SCREEN Negative Normal [facility] Comment on above: Performed By: #### P REGQNT #### [facility] [address] [address] [address] Aleah Peres US PELVISon 09-15-2022 US PELVIS EXAMINATION: US PELVIS HISTORY: Spontaneous COMPARISON: No relevant comparison available. TECHNIQUE: Transabdominal and transvaginal sonographic examination. FINDINGS: UTERUS: Small amount of fluid within endometrial cavity. No visible retained products of conception. IMPRESSION: 1. No appreciable retained products of conception within uterine cavity. Electronically authenticated by: ASHLEY NOEL Date: 2022-09-15 15:42 Normal [facility] US PREG TVon 09-13-2022 US PREG TV [...] Right ovary was not identified. Normal [facility] CBC AUTO DIFFon 08-16-2022 BASO # 0.0 103/ul Normal 0.0-0.1 [facility] Comment on above: Performed By: #### C BC #### [facility] [address] [address] [address] Aleah Peres Basophils/100 WBC (Bld) 0.4 % Normal 0.2-2.0 [facility] Comment on above: Performed By: #### C BC #### [facility] [address] [address] [address] Aleah Peres EO # 0.1 103/ul Normal 0.0-0.7 [facility] Comment on above: Performed By: #### C BC #### [facility] [address] [address] [address] Aleah Peres Eosinophils/100 WBC (Bld) 1.4 % Normal 0.9-7.0 [facility] Comment on above: Performed By: #### C BC #### [facility] [address] [place] [address] Dr. Aleah Peres Erythrocyte distribution width (RBC) [Ratio] 13.6 % Normal 11.0-15.0 [facility] Comment on above: Performed By: #### C BC #### [facility] [address] [place] [address] Dr. Aleah Peres Hematocrit (Bld) [Volume fraction] 32.4 % Critically low 36.0-48.0 [facility] Comment on above: Performed By: #### C BC #### [facility] [address] [place] [address] Dr. Aleah Peres Hemoglobin (Bld) [Mass/Vol] 11.2 g/dL Critically low 12.0-16.0 [facility] Comment on above: Performed By: #### C BC #### [facility] [address] [place] [address] Dr. Aleah Peres IG # 0.02 10e3/ul Normal 0.00-0.03 [facility] Comment on above: Performed By: #### C BC #### [facility] [address] [place] [address] Dr. Aleah Peres IG % 0.3 % Normal 0.0-0.5 [facility] Comment on above: Performed By: #### C BC #### [facility] [address] [place] [address] Dr. Aleah Peres LYMPH # 2.4 103/ul Normal 1.2-3.8 [facility] Comment on above: Performed By: #### C BC #### [facility] [address] [place] [address] Dr. Aleah Peres Lymphocytes/100 WBC (Bld) 32.3 % Normal 20.5-60.0 [facility] Comment on above: Performed By: #### C BC #### [facility] [address] [place] [address] Dr. Aleah Peres MANUAL DIFF REQ NO Normal [facility] Comment on above: Performed By: #### C BC #### [facility] [address] [place] [address] Dr. Aleah Peres MCH (RBC) [Entitic mass] 26.9 pg Normal 26.7-34.0 [facility] Comment on above: Performed By: #### C BC #### [facility] [address] [place] [address] Dr. Aleah Peres MCHC (RBC) [Mass/Vol] 34.6 g/dL Normal 29.9-35.2 [facility] Comment on above: Performed By: #### C BC #### [facility] [address] [place] [address] Dr. Aleah Peres MCV (RBC) [Entitic vol] 77.9 fL Critically low 81.0-99.0 [facility] Comment on above: Performed By: #### C BC #### [facility] [address] [place] [address] Dr. Aleah Peres MONO # 0.7 103/ul Normal 0.3-0.8 [facility] Comment on above: Performed By: #### C BC #### [facility] [address] [place] [address] Dr. Aleah Peres Monocytes/100 WBC (Bld) 9.1 % Normal 1.7-12.0 [facility] Comment on above: Performed By: #### C BC #### [facility] [address] [place] [address] Dr. Aleah Peres NEUT # 4.1 103/ul Normal 1.4-6.5 [facility] Comment on above: Performed By: #### C BC #### [facility] [address] [place] [address] Dr. Aleah Peres Neutrophils/100 WBC (Bld) 56.5 % Normal 43.0-75.0 [facility] Comment on above: Performed By: #### C BC #### [facility] [address] [place] [address] Dr. Aleah Peres Platelet mean volume (Bld) [Entitic vol] 9.4 fL Critically low 9.5-13.5 [facility] Comment on above: Performed By: #### C BC #### [facility] [address] [place] [address] Dr. Aleah Peres PLT 303 103/ul Normal 150-450 [facility] Comment on above: Performed By: #### C BC #### [facility] [address] [place] [address] Dr. Aleah Peres RBC 4.16 106/ul Critically low 4.20-5.[address] [facility] Comment on above: Performed By: #### C BC #### [facility] [address] [place] [address] Dr. Aleah Peres WBC 7.3 103/ul Normal 4.0-11.0 [facility] Comment on above: Performed By: #### C BC #### [facility] [address] [place] [address] Dr. Aleah Peres ER URINE PROFILEon 3 Bilirubin Ql (U) Negative Normal NEGATIVE [facility] Comment on above: Performed By: #### E RUR #### [facility] [address] [place] [address] Dr. Aleah Peres Clarity (U) CLEAR Normal CLEAR [facility] Comment on above: Performed By: #### E RUR #### [facility] [address] [place] [address] Dr. Aleah Peres Color (U) YELLOW Normal YELLOW [facility] Comment on above: Performed By: #### E RUR #### [facility] [address] [address] [address] Aleah OMALLEY A micrscopic examination will be performed if indicated. Normal [facility] Comment on above: Performed By: #### E RUR #### [facility] [address] [place] [address] Dr. Aleah Peres Glucose Ql (U) Negative Normal NEGATIVE [facility] Comment on above: Performed By: #### E RUR #### [facility] [address] [place] [address] Dr. Aleah Peres Hemoglobin Ql (U) Negative Normal NEGATIVE [facility] Comment on above: Performed By: #### E RUR #### [facility] [address] [place] [address] Dr. Aleah Peres Ketones Ql (U) Negative Normal NEGATIVE [facility] Comment on above: Performed By: #### E RUR #### [facility] [address] [place] [address] Dr. Aleah Peres LEUKOCYTES Negative Normal NEGATIVE [facility] Comment on above: Performed By: #### E RUR #### [facility] [address] [place] [address] Dr. Aleah Peres Nitrite Ql (U) Negative Normal NEGATIVE [facility] Comment on above: Performed By: #### E RUR #### [facility] [address] [place] [address] Dr. Aleah Peres pH (U) 6.0 [pH] Normal 5-9 [facility] Comment on above: Performed By: #### E RUR #### [facility] [address] [place] [address] Dr. Aleah Peres SPEC GRAVITY 1.020 Normal 1.005-<=1.[address] [facility] Comment on above: Performed By: #### E RUR #### [facility] [address] [place] [address] Dr. Aleah Peres UA PROTEIN Negative Normal NEGATIVE/ TRACE [facility] Comment on above: Performed By: #### E RUR #### [facility] [address] [place] [address] Dr. Aleah Peres UR MICRO IND NOT INDICATED Normal [facility] Comment on above: Performed By: #### E RUR #### [facility] [address] [place] [address] Dr. Aleah Peres Urobilinogen Qn (U) 0.2 {Edmund'U}/dL Normal 0.2 - 1. 0 [facility] Comment on above: Performed By: #### E RUR #### [facility] [address] [place] [address] Dr. Aleah Peres PROF 14(COMP METB)on 023 Albumin [Mass/Vol] 3.0 g/dL Critically low 3.4-5.0 [facility] Comment on above: Performed By: #### C MP #### [facility] [address] [place] [address] Dr. Aleah Peres Albumin/Globulin [Mass ratio] 0.8 {ratio} Normal [facility] Comment on above: Performed By: #### C MP #### [facility] [address] [place] [address] Dr. Aleah Peres ALP [Catalytic activity/Vol] 52 U/L Normal 46-116 [facility] Comment on above: Performed By: #### C MP #### [facility] [address] [place] [address] Dr. Aleah Peres ALT [Catalytic activity/Vol] 15 U/L Normal 14-59 [facility] Comment on above: Performed By: #### C MP #### [facility] [address] [place] [address] Dr. Aleah Peres Anion gap [Moles/Vol] 10.2 mmol/L Normal [facility] Comment on above: Performed By: #### C MP #### [facility] [address] [place] [address] Dr. Aleah Peres AST [Catalytic activity/Vol] 13 U/L Critically low 15-37 [facility] Comment on above: Performed By: #### C MP #### [facility] [address] [address] [address] Aleah Peres Bilirubin [Mass/Vol] 0.2 mg/dL Normal 0.2-1.0 [facility] Comment on above: Performed By: #### C MP #### [facility] [address] [place] [address] Dr. Aleah Peres Calcium [Mass/Vol] 9.1 mg/dL Normal 8.5-10.1 [facility] Comment on above: Performed By: #### C MP #### [facility] [address] [place] [address] Dr. Aleah Peres Chloride [Moles/Vol] 100 mmol/L Normal 98-107 [facility] Comment on above: Performed By: #### C MP #### [facility] [address] [place] [address] Dr. Aleah Peres CO2 [Moles/Vol] 28.8 mmol/L Normal 21.0-32.0 [facility] Comment on above: Performed By: #### C MP #### [facility] [address] [place] [address] Dr. Aleah Peres Creatinine [Mass/Vol] 0.56 mg/dL Normal 0.55-1.02 [facility] Comment on above: Performed By: #### C MP #### [facility] [address] [place] [address] Dr. Aleah Peres EGFR-AF MALAYSIAN >60 Normal >=60 [facility] Comment on above: Performed By: #### C MP #### [facility] [address] [address] [address] Aleah Peres EGFR-NON AF MALAYSIAN >60 Normal >=60 [facility] Comment on above: Performed By: #### C MP #### [facility] [address] [place] [address] Dr. Aleah Peres Globulin (S) [Mass/Vol] 3.9 g/dL Normal [facility] Comment on above: Performed By: #### C MP #### [facility] [address] [place] [address] Dr. Aleah Peres Glucose [Mass/Vol] 90 mg/dL Normal 74-106 [facility] Comment on above: Performed By: #### C MP #### [facility] [address] [address] [address] Aleah Peres Potassium [Moles/Vol] 4.0 mmol/L Normal 3.5-5.1 [facility] Comment on above: Performed By: #### C MP #### [facility] [address] [address] [address] Aleah Peres Protein [Mass/Vol] 6.9 g/dL Normal 6.4-8.2 [facility] Comment on above: Performed By: #### C MP #### [facility] [address] [place] [address] Dr. Aleah Peres Sodium [Moles/Vol] 135 mmol/L Critically low 136-145 [facility] Comment on above: Performed By: #### C MP #### [facility] [address] [place] [address] Dr. Aleah Peres Urea nitrogen [Mass/Vol] 4.0 mg/dL Critically low 7.0-18.0 [facility] Comment on above: Performed By: #### C MP #### [facility] [address] [place] [address] Dr. Aleah Peres Urea nitrogen/Creatinine [Mass ratio] 7.1 mg/mg [facility] Comment on above: Performed By: #### C MP #### [facility] [address] [place] [address] Dr. Aleah Peres PAP ACOG PANEL 2: 21 to 29on 08-02-2022 . . Normal [facility] Comment on above: Result Comment: Perf ormed at: WB Performed By: #### [id number] #### [facility] [address] [place] [address] Dr. Aleah Peres Age Gdln ACOG Testing - Normal [facility] Comment on above: Performed By: #### [id number] #### [facility] [address] [place] [address] Dr. Aleah Peres DIAGNOSIS: Comment Abnormal [facility] Comment on above: Result Comment: EPIT HELIAL CELL ABNORMALITY. LOW GRADE SQUAMOUS INTRAEPITHELIAL LESION (LSIL). Performed at: WB Performed By: #### [id number] #### [facility] [address] [place] [address] Dr. Aleah Peres Electronically signed by: Comment Normal [facility] Comment on above: Result Comment: Amena Acriniega MD, Pathologist Performed at: WB Performed By: #### [id number] #### [facility] [address] [place] [address] Dr. Aleah Peres Methodology: Comment Normal [facility] Comment on above: Result Comment: This liquid based ThinPrep(R) pap test was screened with the use of an image guided system. Performed at: WB Performed By: #### [id number] #### [facility] [address] [place] [address] Dr. Aleah Peres Note: Comment Normal [facility] Comment on above: Result Comment: The Pap smear is a screening test designed to aid in the detection of premalignant and malignant conditions of the uterine cervix. It is not a diagnostic procedure and should not be used as the sole means of detecting cervical cancer. Both false-positive and false-negative reports do occur. . Performed at: WB Performed By: #### [id number] #### [facility] [address] [place] [address] Dr. Aleah Peres Pathologist Provided ICD10 Comment Normal [facility] Comment on above: Result Comment: [id number] Performed at: WB Performed By: #### [id number] #### [facility] [address] [place] [address] Dr. Aleah Peres Performed by: Comment Normal [place] Comment on above: Result Comment: Caitlyn Crenshaw, Metal Welder (ASCP) Performed at: BA Performed By: #### [id number] #### [facility] [address] [place] [address] Dr. Aleah Peres Recommendation: Comment Abnormal [facility] Comment on above: Result Comment: Sugg est follow up as clinically appropriate. Performed at: WB Performed By: #### [id number] #### [facility] [address] [place] [address] Dr. Aleah Peres Reflex Criteria: Comment Normal [facility] Comment on above: Result Comment: The HPV DNA reflex criteria were not met with this specimen result therefore, no HPV testing was performed. . Performed at: WB Performed By: #### [id number] #### [facility] [address] [place] [address] Dr. Aleah Peres Specimen adequacy: Comment Normal [facility] Comment on above: Result Comment: Sati sfactory for evaluation. Endocervical and/or squamous metaplastic cells (endocervical component) are present. Performed at: WB Performed By: #### [id number] #### [facility] [address] [place] [address] Dr. Aleah Peres [facility] SARS-CoV-2 (COVID-19) RNA MARY ELLEN+probe Ql (Unsp spec) Not detected Normal NOT DETECTED [facility] Comment on above: Result Comment: When diagnostic [...] for this test is supported by the Business Services Sales Representative of Health and Human Service's declaration that [...] used). Performed By: #### P [id number] #### [facility] [address] [place] [address] Dr. Aleah Peres Vital Signs Date Time Vital Sign Value Performing Clinician Faci lity 07-16-2024 10:25-0500 Body mass index (BMI) [Ratio] 30.71 kg/m2 Mu PA Work Phone: [facility] 07-16-2024 10:25-0500 Body weight 79.89 kg [place] PA Work Phone: [facility] 07-16-2024 10:25-0500 Diastolic blood pressure 70 mm[Hg] [place] PA Work Phone: [facility] 07-16-2024 10:25-0500 Systolic blood pressure 120 mm[Hg] Mu PA Work Phone: [facility] 06-07-2024 13:39-0500 Body mass index (BMI) [Ratio] 31.35 kg/m2 [facility] Nurse [facility] 06-07-2024 13:39-0500 Body weight 81.56 kg [facility] Nurse [facility] 06-07-2024 13:39-0500 Diastolic blood pressure 70 mm[Hg] [facility] Nurse [facility] 06-07-2024 13:39-0500 Systolic blood pressure 118 mm[Hg] [facility] Nurse [facility] 05-31-2024 09:40-0500 Body mass index (BMI) [Ratio] 30.86 kg/m2 Mu PA Work Phone: [facility] 05-31-2024 09:40-0500 Body weight 80.29 kg Mu PA Work Phone: [facility] 05-31-2024 09:40-0500 Diastolic blood pressure 72 mm[Hg] Mu PA Work Phone: [facility] 05-31-2024 09:40-0500 Systolic blood pressure 118 mm[Hg] [place] PA Work Phone: [facility] 08-31-2023 13:43-0500 Body mass index (BMI) [Ratio] 33.2 kg/m2 Teresita Ayesha DO Work Phone: [facility] 08-31-2023 13:43-0500 Body weight 86.36 kg Teresita Ayesha DO Work Phone: [facility] 08-31-2023 13:43-0500 Diastolic blood pressure 70 mm[Hg] Teresita Ayesha DO Work Phone: [facility] 08-31-2023 13:43-0500 Systolic blood pressure 114 mm[Hg] Teresita Ayesha DO Work Phone: [facility] Encounters Encounter Date Encounter Type Care Provider Facility Start: 07-16-2024 End: 07-16-2024 Bamboo flowsheet Amy VILLATORO Work Phone: [facility] Start: 07-16-2024 End: 07-16-2024 Bamboo flowsheet Amy VILLATORO Work Phone: [facility] Start: 07-16-2024 End: 07-16-2024 Patient encounter procedure Amy VILLATORO Work Phone: [facility] Start: 07-16-2024 End: 07-16-2024 Periodic preventive med est patient 18-39 yrs Amy VILLATORO Work Phone: [facility] Comment on above: Screening, , for anatomic survey; Well woman exam with routine gynecological exam; 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; Second trimester ; Encounter for screening for cervical length Start: 06-14-2024 End: 06-14-2024 Clinisync Result Encounter Teresita Ayesha DO Work Phone: [facility] External Department Unsolicited Start: 06-14-2024 End: 06-14-2024 Clinisync Result Encounter Teresita Ayesha DO Work Phone: [facility] External Department Unsolicited Start: 06-07-2024 End: 06-07-2024 Office outpatient visit 5 minutes [facility] Ayesha Nurse [facility] Comment on above: GA: 9w1d Start: 06-07-2024 End: 06-07-2024 ambulatory AMY DOBBINS Not Available Start: 05-31-2024 End: 05-31-2024 Bamboo flowsheet Amy VILLATORO Work Phone: [facility] Start: 05-31-2024 End: 05-31-2024 Bamboo flowsheet Amy Dobbins PA Work Phone: [facility] Start: 05-31-2024 End: 05-31-2024 ambulatory [facility] Not Available Start: 05-31-2024 End: 05-31-2024 Office outpatient visit 15 minutes Amy Dobbins PA Work Phone: [facility] Comment on above: 8 weeks gestation of ; Cramping affecting , antepartum Start: 03-06-2024 End: 03-06-2024 ambulatory PAM Bryant ALBERTALEATHAGalindo Not Available Start: 03-06-2024 End: 03-06-2024 Patient encounter procedure Navneet Rodriguez DO Work Phone: [facility] Comment on above: Encounter for pre-em ployment drug testing (Primary Dx) Start: 11-30-2023 End: 11-30-2023 ambulatory [facility] Not Available Start: 10-12-2023 End: 10-12-2023 ambulatory TERESITA AYESHA Not Available Start: 09-28-2023 End: 09-28-2023 ambulatory TERESITA AYESHA Not Available Start: 09-14-2023 End: 09-14-2023 ambulatory [facility] Not Available Start: 08-31-2023 End: 08-31-2023 Office outpatient visit 15 minutes Teresita Ayesha DO Work Phone: [facility] Comment [...] Start: 10-08-2022 End: 10-09-2022 ambulatory ALEXIA BARRETT Facility:[facility] Start: 10-08-2022 End: 10-08-[address] ALEXIA BARRETT . Facility: Start: 10-06-2022 End: 10-07-[address] ALEXIA BARRETT . Facility: Start: 09-17-2022 Encounter for other preprocedural examination DR TERESITA HODGE . [facility] Start: 09-15-2022 End: 09-16-2022 ambulatory TERESITA HODGE Facility:[facility] Start: 09-15-2022 End: [...] Date Procedure Procedure Detail Performing Clinician Start: 07-16-2024 Urnls dip stick/tabl et rgnt non-auto w/o micrscp Amy VILLATORO Work Phone: Start: 06-14-2024 BOX TEST Teresita Fazi o [...] Treatment Date Care Activity Detail Author Start: 08-14-2024 End: 08-14-2024 Patient encounter procedure 08/14/2024 10:50 AM EST Routine [facility] [address] [place] [id number] Teresita Hodge, DO [address], [place] [id number] [facility] Start: 08-01-2024 End: 08-01-2024 Professional / ancillary services management 08/01/2024 11:30 AM EST Ancillary Procedure [facility] [address] [place] [id number] [facility] Start: 07-16-2024 End: 08-16-2024 Alpha fetoprotein, maternal Alpha fetoprotein, maternal Lab Routine Second trimester Expected: 07/16/2024 (Approximate), Expires: 08/16/2024 [facility] Comment on above: Expected: 07/16/2024 (Approximate), Expires: 08/16/2024 Start: 07-16-2024 End: 07-16-2025 US for US OB ANATOMY SINGLE W US OB CERVICAL LENGTH Imaging Routine Screening, , for anatomic survey Second trimester Expected: 07/16/2024 (Approximate), Expires: 07/16/2025 [facility] Comment on above: Expected: 07/16/2024 (Approximate), Expires: 07/16/2025 Start: 07-16-2024 End: 07-16-2025 US Pelvis transvaginal US OB transvaginal Imaging Routine Encounter for screening for cervical length Expected: 07/16/2024 (Approximate), Expires: 07/16/2025 [facility] Comment on above: Expected: 07/16/2024 (Approximate), Expires: 07/16/2025 Start: 07-09-2024 End: 07-09-2024 Patient encounter procedure 07/09/2024 2:50 PM EST Routine [facility] [address] [place] [id number] Teresita Hodge, DO [address] [place] [address] [facility] Start: 06-07-2024 End: 06-07-2025 ABO/Rh ABO/Rh Lab Routine Missed menses , unspecified gestational age Expected: 06/07/2024 (Approximate), Expires: 06/07/2025 [facility] Comment on above: Expected: 06/07/2024 (Approximate), Expires: 06/07/2025 Start: 06-07-2024 End: 06-07-2025 Blood type and Indirect antibody screen panel - Blood Type and screen Lab Routine Missed menses , unspecified gestational age Expected: 06/07/2024 (Approximate), Expires: 06/07/2025 [facility] Work Phone: Comment on above: Expected: 06/07/2024 (Approximate), Expires: 06/07/2025 Start: 06-07-2024 End: 06-07-2025 Drugs of abuse panel - Urine by Screen method Rapid drug screen, urine Lab Routine , unspecified gestational age Encounter for supervision of normal first in first trimester Expected: 06/07/2024 (Approximate), Expires: 06/07/2025 [facility] Comment on above: Expected: 06/07/2024 (Approximate), Expires: 06/07/2025 Start: 06-07-2024 End: 06-07-2024 ambulatory 06/07/2024 1:30 PM EST Initial [facility] [address] [facility] [facility] [place] [phone] [facility] Start: 06-07-2024 End: 06-07-2024 Professional / ancillary services management 06/07/2024 1:00 PM EST Ancillary Procedure [facility] [place] [id number] [facility] Start: 05-21-2024 End: 05-21-2024 Patient encounter procedure 05/21/2024 11:00 AM EDT Office Visit [facility] [address] [facility] [place] [phone] Amy Dobbins PA [address] [facility] [place] [address] [facility] Start: 09-14-2023 End: 09-14-2023 Patient encounter procedure 09/14/2023 3:[address] [facility] [address] [place] [phone] Amy Dobbins PA [address] [facility] [place] [address] [facility] Bacteria identified in Urine by Culture Urine culture Microbiology Routine Missed menses Ordered: 06/07/2024 [facility] Comment on above: Ordered: 06/07/2024 CBC W Auto Differential panel - Blood CBC and differential Lab Routine Missed menses , unspecified gestational age Ordered: 06/07/2024 [facility] Comment on above: Ordered: 06/07/2024 CHLAMYDIA TRACHOMATI S (GENITO/STI) CHLAMYDIA TRACHOMATIS (GENITO/STI) Lab Routine Second trimester Ordered: 07/16/2024 [facility] Comment on above: Ordered: 07/16/2024 Cytology Cervical or vaginal smear or scraping study Pap Smear Pathology and Cytology Routine Well woman exam with routine gynecological exam 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 Second trimester Ordered: 07/16/2024 [facility] Work Phone: Comment on above: Ordered: 07/16/2024 Hemoglobin A1c/Hemoglobin.total in Blood Hemoglobin A1c Lab Routine Missed menses , unspecified gestational age Ordered: 06/07/2024 [facility] Comment on above: Ordered: 06/07/2024 Hepatitis B virus surface Ag [Presence] in Serum or Plasma by Immunoassay Hepatitis B surface antigen Lab Routine Missed menses , unspecified gestational age Ordered: 06/07/2024 [facility] Comment on above: Ordered: 06/07/2024 Hepatitis C virus Ab [Presence] in Serum or Plasma by Immunoassay Hepatitis C antibody Lab Routine Missed menses , unspecified gestational age Ordered: 06/07/2024 [facility] Comment on above: Ordered: 06/07/2024 HIV-1/HIV-2 antigen/antibody combination immunoassay HIV-1 and HIV-2 antibodies Lab Routine Missed menses , unspecified gestational age Ordered: 06/07/2024 [facility] Comment on above: Ordered: 06/07/2024 Neisseria gonorrhoea e DNA [Presence] in Unspecified specimen by MARY ELLEN with probe detection Neisseria gonorrhea DNA probe, direct Lab Routine Second trimester Ordered: 07/16/2024 [facility] Comment on above: Ordered: 07/16/2024 Reagin Ab [Presence] in Serum by RPR RPR Lab Routine Missed menses , unspecified gestational age Ordered: 06/07/2024 [facility] Comment on above: Ordered: 06/07/2024 Rubella antibody, IgG Rubella an tibody, IgG Lab Routine Missed menses , unspecified gestational age Ordered: 06/07/2024 [facility] Comment on above: Ordered: 06/07/2024 SURESWAB(R) ADVANCED VAGINITIS PLUS, TMA SURESWAB(R) ADVANCED VAGINITIS PLUS, TMA Pathology and Cytology Routine Second trimester Ordered: 07/16/2024 [facility] Comment on above: Ordered: 07/16/2024 Payers Date Payer Category Payer Medicaid [id number] 2022 Medicaid [id number] 1999 Unknown [id number] 2.16.84 0.1.820986.3.579.2.593 1999 Unknown [id number] 2.16.84 0.1.312242.3.579.2.593 1999 Unknown [id number] 2.16.84 0.1.568566.3.579.2.593 1999 Unknown [id number] 2.16.84 0.1.377021.3.579.2.593 1999 Unknown [id number] 2.16.84 0.1.151565.3.579.2.593 1999 Unknown [id number] 2.16.84 0.1.087894.3.579.2.593 1999 Unknown [id number] 2.16.84 0.1.461666.3.579.2.593 1999 Unknown [id number] 2.16.84 0.1.514325.3.579.2.593 1999 Unknown [id number] 2.16.84 0.1.325257.3.579.2.593 1999 Unknown [id number] 2.16.84 0.1.811087.3.579.2.593 1999 Unknown [id number] 2.16.84 0.1.452658.3.579.2.1259 1999 Unknown [id number] 2.16.84 0.1.802194.3.579.2.1259 1999 Unknown [id number] 2.16.84 0.1.942408.3.579.2.1259 1999 Unknown [id number] 2.16.84 0.1.724842.3.579.2.1259 1999 Unknown [id number] 2.16.84 0.1.851131.3.579.2.1259 1999 Unknown [id number] 2.16.84 0.1.482460.3.579.2.1259 1999 Unknown [id number] 2.16.84 0.1.422955.3.579.2.1259 1999 Unknown [id number] 2.16.84 0.1.554126.3.579.2.1259 1999 Unknown [id number] 2.16.84 0.1.665632.3.579.2.1259 1999 Unknown [id number] 2.16.840 .1.141723.3.579.2.1259 1999 Unknown [id number] 2.16.840 .1.276559.3.579.2.1259 1959 Unknown [id number] 1959 Unknown [id number] Social History Date Type Detail Facility Start: [facility]18[facility] [facility] [facility] Start: 08-31-2023 End: 07-16-2024 Alcohol intake Lifetime non-drinker (finding) [facility] Start: 06-13-2023 End: 08-31-2023 History of Social function [facility] Start: 06-13-2023 End: 08-31-2023 Tobacco use panel [facility] Start: 04-18-2023 Alcohol Comment caffeine: none [facility] Start: 02-17-2023 [facility] Start: 2000 Sex Assigned At Not on file [facility] Clinical Notes 09-15-2022 to 07-16-2024 SHAUNA Rizvi - 07/16/2024 9:50 AM Juaquin Perry LPN - 06/07/2024 1:30 PM SHAUNA Hammonds - 05/31/2024 9:10 AM Frida Beard MA - 03/06/2024 2:50 PM Sharlene Hare LPN - 08/31/2023 1:40 PM EST Note Date & Type Note Facility 07-16-2024 History of Presen t illness Narrative Reason for Appointment: Patient ID: Alexandra Higgins is a 24 y.o. female who presents for Routine Visit Patient presents today for Annual Exam. and Return OB appointment. MEDICATIONS Current Outpatient Medications Medication Instructions MV-Min-Fe Fum-FA-DHA (CENTRUM SPECIALIST PO) 1 each, Daily Progesterone 200 mg, Vaginal, Nightly, Insert suppository vaginally every night at bedtime until 12 weeks gestation ALLERGIES No Known Allergies PROBLEMS Active Ambulatory [...] Constitutional: Appearance: Normal appearance. She is well-developed. Genitourinary: Vulva normal. Right Adnexa: not tender and no mass present. Left Adnexa: not tender and no mass present. No cervical discharge. Breasts: Breasts are soft. Right: Normal. Left: Normal. HENT: Head: Normocephalic. Nose: Nose normal. Mouth/Throat: Mouth: Mucous membranes are moist. Cardiovascular: Rate and Rhythm: Normal rate and regular rhythm. Pulmonary: Effort: Pulmonary effort is normal. Breath sounds: Normal breath sounds. Abdominal: General: Bowel sounds are normal. There is no distension. Palpations: Abdomen is soft. Tenderness: There is no abdominal tenderness. There is no guarding or rebound. Musculoskeletal: General: No swelling. Normal range of motion. Cervical back: Normal range of motion. Right lower leg: No edema. Left lower leg: No edema. Neurological: General: No focal deficit present. Mental Status: She is alert and oriented to person, place, and time. Skin: General: Skin is warm and dry. Psychiatric: Mood and Affect: Mood normal. Behavior: Behavior normal. Vitals and nursing note reviewed. Exam conducted with a sole stitcher hand present. Vitals: Estimated body mass index is 30.71 kg/m as calculated from the following: Height as of 11/10/22: 5' 3.5 . Weight as of this encounter: 176 lb 1.9 oz. BP: 120/70 Patient's last menstrual period was 04/04/2024. ASSESSMENT & PLAN ICD-10-CM 1. Screening, , for anatomic survey Z36.89 US OB ANATOMY SINGLE W US OB CERVICAL LENGTH 2. Well woman exam with routine gynecological exam Z01.419 Pap Smear 3. 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 R87.612 Pap Smear 4. Second trimester Z34.92 Pap Smear POCT urinalysis dipstick manually resulted Alpha fetoprotein, maternal SURESWAB(R) ADVANCED VAGINITIS PLUS, TMA CHLAMYDIA TRACHOMATIS (GENITO/STI) Neisseria gonorrhea DNA probe, direct US OB ANATOMY SINGLE W US OB CERVICAL LENGTH Alpha fetoprotein, maternal Return OB/Annual Exam: Patient presents today for an annual exam/routine obstetrics appointment. Patient is currently 14w5d . Patient is doing well and states she has no complaints. Pap/cultures was obtained without difficulty and patient was given msAFP order to have obtained. Orders Placed This Encounter Procedures US OB ANATOMY SINGLE W US OB CERVICAL LENGTH Alpha fetoprotein, maternal CHLAMYDIA TRACHOMATIS (GENITO/STI) Neisseria gonorrhea DNA probe, direct POCT urinalysis dipstick manually resulted Follow Up: Patient is to return to our office in 4 weeks for routine OB appointment Documented by Brianna Perry LPN on behalf of: SHAUNA Rizvi documented in this encounter [facility] 06-07-2024 History of Presen t illness Narrative [...] or undercooked meat, and stay away from [facility]. Patient has also been advised to not [...] Brianna Perry LPN documented in this encounter [facility] 05-31-2024 History of Presen t illness Narrative [...] of: SHAUNA Rizvi documented in this encounter [facility] 03-06-2024 History of Presen t illness Narrative Pt presents today for a pre-employment drug screen, BAT, Physical Exam, Audiogram, and PFT for [place]. Pt verified by photo ID. documented in this encounter [facility] 08-31-2023 History of Presen t illness Narrative [...] nursing note reviewed. Exam conducted with a sole stitcher hand present. Vitals: Estimated body mass index is [...] Teresita Hodge DO documented in this encounter [facility] 09-15-2022 Note EXAMINATION: US PREG TV HISTORY: [...] authenticated by: ASHLEY NOEL Date: 2022-09-15 07:41 [facility] 09-15-2022 Note OPERATIVE NOTE OPERATION DATE: 09/15/2022 PROCEDURE: Suction D AND C. PREOPERATIVE DIAGNOSIS: First trimester missed at 10 weeks. POSTOPERATIVE DIAGNOSIS: First trimester missed at 10 weeks. ANESTHESIA: General. SURGEON: Teresita Hodge D.O. FINISHER WALLBOARD AND PLASTERBOARD: None. FINDINGS: Products of conception. SPECIMEN: Products [...] products of conception were removed using an 9-Yoruba suction curette. Excellent hemostasis was noted. The patient tolerated the procedure well. Sponge, lap, and needle counts were correct x 2. All instruments were then removed from the patient's vagina. The patient was taken to the Recovery Room in stable condition. ?? [facility] Evaluation note Diagnosis Third trimester state, incidental [facility] Diagnosis 8 weeks gestation of Cramping affecting , antepartum [facility]* Diagnosis Missed menses , unspecified gestational age Encounter for supervision of normal first in first trimester documented [facility]* Diagnosis Encounter for pre-employment drug testing- Primary documented [facility]* Diagnosis Screening, , for anatomic survey Encounter for anatomic survey Well woman exam with routine gynecological exam Routine gynecological examination 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 Second trimester state, incidental Encounter for screening for cervical length documented in this encounter [facility] Summary Purpose Family History No Family History Records FoundNo Family History Records FoundNo Family History Records Found Advance Directives No Advanced Directives Records FoundNo Advanced Directives Records FoundNo Advanced Directives Records Found Additional Source Comments INFORMATION SOURCE (unrecogn ized section and content) DATE CREATED AUTHOR 10/12/2022 [facility] DATE CREATED AUTHOR AUTHOR'S ORGANIZ ATION 12/08/2022 [facility] DATE CREATED AUTHOR AUTHOR'S ORGANIZ ATION 06/10/2024 [facility] EPIC Reason for Visit (unrecogniz [...] BE BASED ON THE PRIMARY CLINICAL RECORDS. [facility]. provides no warranty or guarantee of the accuracy or completeness of information in this document.
[2024-07-24 13:08] LABS: Age Gdln ACOG Testing Note (.); IGP, rfx Aptima HPV ASCU Note (.)
== END 2024-07-16 21:17 | disposition home or self-care (01) ==
LOC: LAB 21:16
PROVIDERS: Visit Provider Physician Assistant
DX: Z01.419 Encounter for gynecological examination (general) (routine) without abnormal findings (principal); R87.612 Low grade squamous intraepithelial lesion on cytologic smear of cervix (LGSIL)
CPT/HCPCS: 88175

== ENCOUNTER 2024-08-30 14:06 | Outpatient (OUT) | payer MEDICAID, SELFPAY ==
--- OUTSIDE RECORDS SUMMARY | 2024-08-30 14:13 | XMS_ITS | CCD ---
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 Name Role Phone ALEXIA BARRETT Attending Unavailable [...] HALE Admitting Unavailabl e KARASIK ., DR HAEL Consulting Unavailabl e REQUEST, DR NONE LISTED [...] DR LO Attending Unavailable AYESHA ., DR OL Attending Unavailable AYESHA ., DR LO Admitting [...] Care Unavaila ble Unavailable Primary Care Provider Unavailabl e AYESHA, TERESITA Attending Unavailable AYESHA, TERESITA Referring Unavailable AYESHA, TERESITA Attending Unavailable MU, Attending Unavailable AYESHA, TERESITA Attending Unavailable AYESHA, TERESITA Attending Unavailable MU, Attending Unavailable PAM MENJIVAR Attending Unavailable MU, Attending Unavailable MU, Attending Unavailable Medications Current Medications Medication Drug Class(es) Dates Sig (Normalized) Sig (Original) docusate sodium 100 mg oral capsule (2 sources) Start: 08-14-2024 End: 11-12-2024 take 1 capsule by mouth twice daily as needed for constipation docusate sodium (Colace) 100 MG capsule Indications: Constipation, unspecified constipation type Take 1 capsule (100 mg) by mouth 2 (two) times a day as needed for constipation 60 capsule 5 08/14/2024 11/12/2024 Active magnesium oxide 400 mg oral tablet (2 sources) Start: 08-14-2024 End: 08-14-2025 take 1 tablet by mouth once daily magnesium oxide (Mag-Ox) 400 MG tablet Indications: Other headache syndrome Take 1 tablet (400 mg) by mouth Daily 30 tablet 11 08/14/2024 08/14/2025 Active MV-Min-Fe Fum-FA-DHA (CENTRUM SPECIALIST PO) (15 sources) take 1 dose by mouth once in the morning MV-Min-Fe Fum-FA-DHA (CENTRUM SPECIALIST PO) Take 1 each by mouth in the morning. Active take 1 dose by mouth once in the morning MV-Min-Fe Fum-FA-DHA (CENTRUM SPECIALIST PO) Take 1 each by mouth in the morning. 0 Active Progesterone 200 MG supposit ory (4 sources) Start: 06-29-2024 End: 07-29-2024 Progesterone 200 MG supposit ory Indications: History of miscarriage Insert 200 mg into the vagina at bedtime Insert suppository vaginally every night at bedtime until 12 weeks gestation 30 suppository 2 06/29/2024 07/29/2024 Active Completed/Discontinued Medications Medication Drug Class(es) Dates Sig (Normalized) Sig (Original) [id number] 200 actuat albuterol 0.09 mg/actuat metered dose [...] time. 0 09/21/2022 08/31/2023 Discontinued (Therapy completed) WE-Mvw-MK-Cabool-3 ( Gummies/DHA & FA) 0.4-32.5 MG chewable tablet (1 source) Start: 03-03-2023 End: 08-31-2023 QQ-Eap-HR-Cabool-3 ( Gummies/DHA & FA) 0.4-32.5 MG chewable tablet Problems Active Problems Problem Classification Problem Date Documented Da te Episodic/Chronic Abdominal pain (1 source) Pelvic and perineal pain; Translations: [PELVIC AND PERINEAL PAIN] Onset: 10-15-2022 Episodic Gastrointestinal hemorrhage (4 sources) Melena; Translations: [MELENA] Onset: 10-22-2022 Episodic Headache; including migraine (2 sources) Headache disorder; Translations: [Other headache syndrome] 08-14-2024 Episodic Menstrual disorders (20 sources) Amenorrhea; Translations: [Amenorrhea, unspecified] Onset: 10-26-2023 10-26-2023 Chronic Other complications of (5 sources) Missed ; Translations: [MISSED ] Onset: 09-15-2022 Episodic Other complications of (2 sources) Uterine contractions problem; Translations: [Other specified related conditions, unspecified trimester] 05-31-2024 Episodic Other gastrointestinal disorders (2 sources) Constipation; Translations: [Constipation, unspecified] 08-14-2024 Episodic Other nutritional; endocrine; and metabolic disorders (14 sources) Obesity; Translations: [Obesity, unspecified] Onset: 10-26-2023 10-26-2023 Chronic Other and delivery including normal (11 sources) Encounter for test, result positive; Translations: [Third trimester ] Onset: 09-13-2022 Episodic Other screening for suspected conditions (not mental disorders or infectious disease) (11 sources) Encounter for screening for malignant neoplasm of cervix; Translations: [Patient encounter status] Onset: 07-21-2022 Episodic Residual codes; unclassified (2 sources) Gestation period, 8 weeks; Translations: [8 weeks gestation of ] 05-31-2024 Episodic Residual codes; unclassified (2 sources) Gestation period, 18 weeks; Translations: [18 weeks gestation of ] 08-14-2024 Episodic Spontaneous (4 sources) Incomplete spontaneous without complication; Translations: [INCOMPL SPONT AB W/O COMPLICATION] Onset: 10-06-2022 Episodic Unclassified (3 sources) CONTACT W/AND (SUSP) EXPOS COVID-19; Translations: [CONTACT W/AND (SUSP) EXPOS COVID-19] Onset: 06-09-2022 Past or Other Problems Problem Classification Problem Date Documented Date Episodic/Chronic Administrative/social admission (2 sources) Patient encounter status; Translations: [Encounter for pre-employment examination] 03-06-2024 Episodic Cancer of cervix (20 sources) Low grade squamous intraepithelial lesion on [...] Onset: 08-17-2022 Episodic Other female genital disorders (14 sources) Disorder of female genital system; Translations: [...] Test Name Value Interpretation Reference Range Facility US OB 14+ WEEKS ANATOMY SCAN on 08-14-2024 US OB 14+ WEEKS ANATOMY SCAN TITLE OF EXAM: OB Ultrasound: REASON FOR EXAM: Anatomy. COMPARISON: 08/02/2024 TECHNIQUE: Grayscale and M-mode Doppler imaging is performed. FINDINGS: heart rate: 157 bpm BPD: 4.9 cm HC: 17.9 cm AC: 16.2 cm FL: 3.7 cm GA for sonogram: 20.8 wk (19.4-22.2) Cervix length: 2.7 cm FERN: 01/09/2025 Weight Estimate: Weight: 419 gm / 0 lbs, 14 oz (358-480 gm) Hadlock Normal: 399 gm (331-467 gm) Hadlock Wt%: 65% for 21.0 wks Presentation: Cephalic Lie: Longitudinal Amniotic Fluid: Subjectively normal Placental Location: Anterior Distance from Placenta edge to Cervical os: 6.3 cm Cervical Length: 2.7 cm Closed Heart Rate: 157 bpm Anatomy Observed: Lateral Ventricles: Visualized Cerebellum: Visualized Posterior Fossa: Visualized Nose Lips: Not visualized Orbits: Visualized 4 Chamber heart: Visualized RVOT/LVOT: Visualized Diaphragm: Visualized Stomach: Visualized Kidneys: Visualized Abd Cord Insert: Visualized Bladder: Visualized Umbilical Arteries: Visualized 3 Vessel Cord: Visualized Spine: Visualized Extremities: Visualized IMPRESSION: 1. Single live intrauterine gestation in cephalic position estimated at 20.8 weeks. This is concordant with the provided clinical dates. 2. Visualized structures are unremarkable. facial structures are not well depicted due to the lie, however. This could be reassessed with repeat ultrasound in 4 weeks. Dictated and transcribed 08/29/24dpd This report has been electronically signed and approved by the interpreting radiologist. Normal Not Available Comment on above: Order Comment: US OB ANATOMY SINGLE W US OB CERVICAL LENGTH Estimated Date of Delivery: 01/09/25 Gestational Age as of 08/14/2024: 18w6d Screening, , for anatomic survey. Urinalysis macro (dipstick) panel (U)on 08-14-2024 Bilirubin, UA Negative Negative - 4(70) +++ mg/dL [facility] Blood, UA Negative Negative - 50 William/mcL [facility] Clarity, UA Clear [facility] re Color, UA Yellow [facility] Platypicar e Glucose, UA Negative Negative - 1999(110) ++++ mg/dL [facility] Interpretation and review of laboratory results Normal [facility] Ketones, UA Negative Negative - 160(16) ++++ mg/dL [facility] Leukocytes, UA Negative Negative - 500+++ Roma/mcL [facility] Nitrite, UA Negative Negative - Positive [facility] pH, UA 7 5 - 9 [facility] Protein, UA Negative Negative - 1999(20) ++++ mg/dL [facility] Spec Grav, UA 1.02 1 - 1.03 [facility] Urobilinogen, UA 0.2 0.2 - 12 mg/dL [facility] OB TRANSVAGINALon 025 US OB TRANSVAGINAL TITLE OF EXAM: OB Ultrasound: REASON FOR EXAM: Short cervix. COMPARISON: None TECHNIQUE: Grayscale and M-mode Doppler imaging is performed. FINDINGS: Measurements: heart rate: 148 bpm Cervix Length: 3.5 cm FERN: 01/09/2025 Limited for: Cervix Presentation: Cephalic Lie: Longitudinal Heart Rate: 148 bpm Cervical Length: 3.5 cm Closed IMPRESSION: 1. Single live intrauterine gestation is visualized. 2. Cervix is closed and measures 3.5 cm in length. Dictated and transcribed 08/02/24dpd This report has been electronically signed and approved by the interpreting radiologist. Normal Not Available Comment on above: Order Comment: US OB TRANSVAGINAL (CERVICAL LENGTH) Estimated Date of Delivery: 01/09/25 Gestational Age as of 07/16/2024: 17w0d IGP,APTIMA HPV,AGE GDLNon AGE GDLN ACOG TESTING Note . [facility] Comment on above: TESTS RESULT FLAG UN ITS REF RANGE LAB Clinician Provided Cytology Information Source.............Cervix No. of containers..01 ThinPrep Vial Age Algo ACOG Kassidy... FLAG LEGEND: L-Low Normal,H-High Normal,LL-Alert Low,HH-Alert High <-Panic Low,>-Panic High,A-Abnormal,AA-Critical Abnormal Performed at: 01 =G [facility] [id number] Cortney Arciniega MD, IGP, RFX APTIMA HPV ASCU Note . [facility] Comment on above: TESTS RESULT FLAG UN ITS REF RANGE LAB DIAGNOSIS: 02 NEGATIVE FOR INTRAEPITHELIAL LESION OR MALIGNANCY. Specimen adequacy: 02 Satisfactory for evaluation. No endocervical component is identified. Performed by: 02 Bry Segundo, Hydrodynamicist ([facility]) . 02 Note: Note 02 The Pap smear is a screening test designed to aid in the detection of premalignant and malignant conditions of the uterine cervix. It is not a diagnostic procedure and should not be used as the sole means of detecting cervical cancer. Both false-positive and false-negative reports do occur. Test Methodology: Note 02 This liquid based ThinPrep(R) pap test was screened with the use of an image guided system. . 02 The HPV DNA reflex criteria were not met with this specimen result therefore, no HPV testing was performed. FLAG LEGEND: L-Low Normal,H-High Normal,LL-Alert Low,HH-Alert High <-Panic Low,>-Panic High,A-Abnormal,AA-Critical Abnormal Performed at: [address] [id number] Cortney Arciniega MD, Performed at: =G - [facility] [address] [id number] Cigarette Package Examiner: Cortney Arciniega MD, Phone: [phone] Performed at: [facility] [address] [id number] Cigarette Package Examiner: Cortney Arciniega MD, Phone: [phone] [facility]IX [facility] Urinalysis macro (dipstick) panel (U)on 07-16-2024 Bilirubin, UA Negative Negative - 4(70) +++ mg/dL [facility] Blood, UA Negative Negative - 50 William/mcL [facility] [employer] Clarity, UA Clear [facility] Color, UA Yellow [facility] Glucose, UA Negative Negative - 2000(110) ++++ mg/dL [facility] Interpretation and review of laboratory results Normal [facility] Ketones, UA Negative Negative - 160(16) ++++ mg/dL [facility] Leukocytes, UA Negative Negative - 500+++ Roma/mcL [facility] Nitrite, UA Negative Negative - Positive [facility] pH, UA 8.5 5 - 9 [facility] Protein, UA Negative Negative - 1999(20) ++++ mg/dL [facility] Spec Grav, UA 1.02 1 - 1.03 [facility] Urobilinogen, UA 0.2 0.2 - 12 mg/dL [facility] BOX TESTon 06-14-2024 BOX TEST SENT OUT [facility] BOX1 [facility] BOX2 06/14/24 [facility] B[facility] HCG ( test) Ql (U)o n 06-07-2024 Interpretation and review of laboratory results Abnormal [facility] Preg Test, Ur Positive Negative [facility] Urinalysis macro (dipstick) panel (U)on 06-07-2024 Bilirubin, UA Negative Negative - 4(70) +++ mg/dL [facility] Blood, UA Negative Negative - 50 William/mcL [facility] Clarity, UA Clear [facility] re Color, UA Yellow [facility] Glucose, UA Negative Negative - 1999(110) ++++ mg/dL [facility] Interpretation and review of laboratory results Abnormal [facility] Ketones, UA Negative Negative - 160(16) ++++ mg/dL [facility] Leukocytes, UA Positive Negative - 500+++ Roma/mcL [facility] Comment on above: small Nitrite, UA Negative Negative - Positive [facility] pH, UA 7.5 5 - 9 [facility] Protein, UA Negative Negative - 1999(20) ++++ mg/dL [facility] Spec Grav, UA 1.02 1 - 1.03 [facility] Urobilinogen, UA 0.2 0.2 - 12 mg/dL [facility] Urinalysis macro (dipstick) panel (U)Ordered By: Shantel Rangel on 08-31-2023 Bilirubin, UA Negative Negative - 4(70) +++ mg/dL [facility] Blood, UA Negative Negative - 50 William/mcL [facility] Clarity, UA Clear [facility] Color, UA Yellow [facility] Glucose, UA Negative Negative - 1999(110) ++++ mg/dL [facility] Interpretation and review of laboratory results Abnormal [facility] Ketones, UA Positive Negative - 160(16) ++++ mg/dL [facility] Leukocytes, UA Trace Negative - 500+++ Roma/mcL [facility] Nitrite, UA Negative Negative - Positive [facility] pH, UA 7.5 5 - 9 [facility] Protein, UA Trace Negative - 1999(20) ++++ mg/dL [facility] Spec Grav, UA 1.020 1 - 1.03 [facility] Urobilinogen, UA 0.2 0.2 - 12 mg/dL [facility] PAP ACOG PANEL 2: 21 to 29on 11-17-2022 . . Normal [facility] Comment on above: Performed By: #### [id number] #### [facility] [address] [place] [address] Dr. Aleah Peres Age Gdln ACOG Testing - [facility] Comment on above: Performed By: #### 4 [id number] #### [facility] [address] [address] [address] Aleah Peres DIAGNOSIS: Comment [facility] Comment on above: Result Comment: NEGA TIVE FOR INTRAEPITHELIAL LESION OR MALIGNANCY. Performed By: #### 4 [id number] #### [facility] [address] [place] [address] Dr. Aleah Peres Methodology: Comment [facility] Comment on above: Result Comment: This liquid based ThinPrep(R) pap test was screened with the use of an image guided system. Performed By: #### 4 [id number] #### [facility] [address] [address] [address] Aleah Peres Note: Comment [facility] Comment on above: Result Comment: The Pap smear is a screening test designed to aid in the detection of premalignant and malignant conditions of the uterine cervix. It is not a diagnostic procedure and should not be used as the sole means of detecting cervical cancer. Both false-positive and false-negative reports do occur. . Performed By: #### [id number] #### [facility] [address] [place] [address] Dr. Aleah Peres Performed by: Comment Normal [facility] Comment on above: Result Comment: Annelise Martinez Hydrodynamicist Performed By: #### 4 [id number] #### [facility] [address] [place] [address] Dr. Aleah Peres Reflex Criteria: Comment Normal [facility] Comment on above: Result Comment: The HPV DNA reflex criteria were not met with this specimen result therefore, no HPV testing was performed. . Performed By: #### 4 [id number] #### [facility] [address] [address] [address] Aleah Peres Specimen adequacy: Comment Normal [facility] Comment on above: Result Comment: Sati sfactory for evaluation. Endocervical and/or squamous metaplastic cells (endocervical component) are present. Performed By: #### 4 [id number] #### [facility] [address] [place] [address] Dr. Aleah Peres Cytology Cervical or vaginal smear or scraping studyon 11-10-2022 [facility] OCC BLD IMMUNO SCREENon 04-0 OCCULT BLOOD Negative Normal NEGATIVE [facility] Comment on above: Performed By: #### O BSCRN #### [facility] [address] [place] [address] Dr. Aleah Peres SURGICAL PATH REPORTon 10-11 SURGICAL PATH REPORT [facility] Department of Pathology [address] [place] [id number] Name: CAMERON HIGGINS : 2000 [facility] [id number] Number: Gender Female Roberts Chapelo [facility] : n: Admit 22 years Attending ALEXIA BARRETT Age: Provider: Ordering ALEXIA BARRETT Provider: Consulti Surgical Pathology Report ng: ACCESSION: COLLECTED DATE/TIME: RECEIVED DATE/TIME: PATHOLOGIST: [id number] 10/08/2022 12:03 EDT 10/08/2022 12:03 EDT TOM AGUERO MD Final Diagnosis Report for [facility] [place] RETAINED PRODUCTS OF CONCEPTION: - CHORIONIC [...] ald 10/08/2022 Tissue pathology report for: [facility], [address] [place] [id number]; ____ Print 10/11/2022 15:01 EDT Number: Date/Time: [facility] Department of Pathology [address] [place] [id number] Name: CAMERON HIGGINS : 2000 [facility] [id number] Number: [facility] : n: Admit 22 years Attending ALEXIA BARRETT Age: Provider: Ordering ALEXIA BARRETT Provider: Consulti Surgical Pathology Report ng: ACCESSION: COLLECTED DATE/TIME: RECEIVED DATE/TIME: PATHOLOGIST: [id number] 10/08/2022 12:03 EDT 10/08/2022 12:03 EDT TOM AGUERO MD Gross Description PATHOLOGY SERVICES PROVIDED BY [employer] (CLIA #[id number]) in cooperation with [facility] at [address] [place] [address] ( CLIA #[id number]) Codes CPT CODE: 09853 ____ Print 10/11/2022 15:01 EDT Number: Date/Time: Normal [facility] Comment on above: Performed By: #### [id number] #### [facility] Services [address] [place] [id number] Dog Licenser: Tom Aguero MD URon 10-08-2022 , QUAL Negative Normal NEGATIVE [facility] Comment on above: Performed By: #### P REGU #### [facility] [address] [place] [address] Dr. Aleah Peres US PELVIS AND TRANSVAGon [...] by: PIPPA ORTEGA Date: 2022-10-06 14:55 Normal [facility] SURGICAL PATH REPORTon 09-16 SURGICAL PATH REPORT [facility] Department of Pathology [address] [place] [address] Name: ALEXANDRA HIGGINS : 2000 [employer] [id number] Number: Gender Female Peter [facility] [place] : n: Admit 22 years Attending TERESITA HODGE Age: Provider: Ordering TERESITA HODGE Provider: Consulti Surgical Pathology Report ng: ACCESSION: COLLECTED DATE/TIME: RECEIVED DATE/TIME: PATHOLOGIST: [id number] 09/15/2022 12:34 EST 09/15/2022 12:34 EST LILLIE KHAN, LUIS ERAZO Final Diagnosis Report for [facility] [place] PRODUCTS OF CONCEPTION, DILATION AND CURETTAGE: - CHORIONIC VILLI ARE PRESENT; NO SIGNIFICANT ATYPIA IS OBSERVED. - BENIGN MATERIAL DECIDUA PRESENT. - NO PARTS ARE IDENTIFIED. LUIS MOREIRA PATHOLOGIST (Electronic Signature) Date Verified 09/16/2022 LN Clinical Data PRE-OP DIAGNOSIS: Not specified POST-OP DIAGNOSIS: Missed PROCEDURES: D and C with suction SPECIMEN: Products of conception / field care advocate Gross Description Labeled products of conception. Received in formalin in a suction sock are multiple irregular segments of medrano pink to red black soft tissue. The individual segments have a variable granular to partially smooth glistening membranous character. The specimen in total aggregate measures 12.5 x 7.5 x 4.0 cm. There are no grossly identifiable parts. Sales Advisory Manager sections are submitted in three cassettes. MP/ald 09/15/2022 ____ Print 09/16/2022 14:53 EST Number: Date/Time: [facility] Department of Pathology [address] [place] [address] Name: ALEXANDRA HIGGINS : 2000 [facility] [id number] Number: Gender Female [facility] [place] : n: Admit 22 years Attending TERESITA HODGE Age: Provider: Ordering TERESITA HODGE Provider: Consulti Surgical Pathology Report ng: ACCESSION: COLLECTED DATE/TIME: RECEIVED DATE/TIME: PATHOLOGIST: [id number] 09/15/2022 12:34 EST 09/15/2022 12:34 EST LILLIE KHAN, LUIS ERAZO Gross Description Tissue pathology report for: [facility], [address] [place] [address]; PATHOLOGY SERVICES PROVIDED BY [employer] (CLIA #[id number]) in cooperation with [facility] at [address] [place] [address] ( CLIA #[id number]) Codes CPT CODE: 61002 ____ Print 09/16/2022 14:53 EST Number: Date/Time: Normal [facility] Comment on above: Performed By: #### [id number] #### [facility] Services [address] [place] [address] Dog Licenser: Tom Aguero MD CBC AUTO DIFFon 09-15-2022 BASO # 0.0 103/ul Normal 0.0-0.1 [facility] Comment on above: Performed By: #### C BC #### [facility] [address] [place] [address] Dr. Aleah Peres Basophils/100 WBC (Bld) 0.4 % Normal 0.2-2.0 [facility] Comment on above: Performed By: #### C BC #### [facility] [address] [place] [address] Dr. Aleah Peres EO # 0.1 103/ul Normal 0.0-0.7 [facility] Comment on above: Performed By: #### C BC #### [facility] [address] [place] [address] Dr. Aleah Peres Eosinophils/100 WBC (Bld) 1.3 % Normal 0.9-7.0 [facility] Comment on above: Performed By: #### C BC #### [facility] [address] [place] [address] Dr. Aleah Peres Erythrocyte distribution width (RBC) [Ratio] 13.8 % Normal 11.0-15.0 [facility] Comment on above: Performed By: #### C BC #### [facility] [address] [place] [address] Dr. Aleah Peres Hematocrit (Bld) [Volume fraction] 35.5 % Critically low 36.0-48.0 [facility] Comment on above: Performed By: #### C BC #### [facility] [address] [place] [address] Dr. Aleah Peres Hemoglobin (Bld) [Mass/Vol] 11.6 g/dL Critically low 12.0-16.0 [facility] Comment on above: Performed By: #### C BC #### [facility] [address] [place] [address] Dr. Aleah Peres IG # 0.03 10e3/ul Normal 0.00-0.03 [facility] Comment on above: Performed By: #### C BC #### [facility] [address] [place] [address] Dr. Aleah Peres IG % 0.4 % Normal 0.0-0.5 [facility] Comment on above: Performed By: #### C BC #### [facility] [address] [place] [address] Dr. Aleah Peres LYMPH # 2.8 103/ul Normal 1.2-3.8 [facility] Comment on above: Performed By: #### C BC #### [facility] [address] [place] [address] Dr. Aleah Peres Lymphocytes/100 WBC (Bld) 32.9 % Normal 20.5-60.0 [facility] Comment on above: Performed By: #### C BC #### [facility] [address] [place] [address] Dr. Aleah Peres MANUAL DIFF REQ NO Normal [facility] Comment on above: Performed By: #### C BC #### [facility] [address] [place] [address] Dr. Aleah Peres MCH (RBC) [Entitic mass] 26.9 pg Normal 26.7-34.0 [facility] Comment on above: Performed By: #### C BC #### [facility] [address] [place] [address] Dr. Aleah Peres MCHC (RBC) [Mass/Vol] 32.7 g/dL Normal 29.9-35.2 [facility] Comment on above: Performed By: #### C BC #### [facility] [address] [place] [address] Dr. Aleah Peres MCV (RBC) [Entitic vol] 82.4 fL Normal 81.0-99.0 [facility] Comment on above: Performed By: #### C BC #### [facility] [address] [place] [address] Dr. Aleah Peres MONO # 0.7 103/ul Normal 0.3-0.8 [facility] Comment on above: Performed By: #### C BC #### [facility] [address] [place] [address] Dr. Aleah Peres Monocytes/100 WBC (Bld) 8.6 % Normal 1.7-12.0 [facility] Comment on above: Performed By: #### C BC #### [facility] [address] [place] [address] Dr. Aleah Peres NEUT # 4.8 103/ul Normal 1.4-6.5 [facility] Comment on above: Performed By: #### C BC #### [facility] [address] [place] [address] Dr. Aleah Peres Neutrophils/100 WBC (Bld) 56.4 % Normal 43.0-75.0 [facility] Comment on above: Performed By: #### C BC #### [facility] [address] [place] [address] Dr. Aleah Peres Platelet mean volume (Bld) [Entitic vol] 9.9 fL Normal 9.5-13.5 [facility] Comment on above: Performed By: #### C BC #### [facility] [address] [place] [address] Dr. Aleah Peres PLT 316 103/ul Normal 150-450 [facility] Comment on above: Performed By: #### C BC #### [facility] [address] [place] [address] Dr. Aleah Peres RBC 4.31 106/ul Normal 4.20-5.40 [facility] Comment on above: Performed By: #### C BC #### [facility] [address] [place] [address] Dr. Aleah Peres WBC 8.4 103/ul Normal 4.0-11.0 [facility] Comment on above: Performed By: #### C BC #### [facility] [address] [place] [address] Dr. Aleah Peres PREG QUANT HCGon 09-15-2022 HCG QUANT 65548 mIU/mL Normal [facility] Comment on above: Performed By: #### P REGQNT #### [facility] [address] [place] [address] Dr. Aleah Peres HCG RANGE SEE BELOW Normal [facility] Comment on above: Result Comment: 5-50 0.2-1 WEEK 50-500 1-2 WEEKS 100-5,000 2-3 WEEKS 500-10,000 3-4 WEEKS 1,000-50,000 4-5 WEEKS 10,000-100,000 5-6 WEEKS 15,000-200,000 6-8 WEEKS 10,000-100,000 2-3 MONTHS Performed By: #### P REGQNT #### [facility] [address] [place] [address] Dr. Aleah Peres TYPE AND SCREENon 09-15-2022 TYPE AND SCREEN Negative Normal [facility] Comment on above: Performed By: #### P REGQNT #### [facility] [id number] Aleah Peres US PELVISon 09-15-2022 US PELVIS EXAMINATION: US PELVIS HISTORY: Spontaneous COMPARISON: No relevant comparison available. TECHNIQUE: Transabdominal and transvaginal sonographic examination. FINDINGS: UTERUS: Small amount of fluid within endometrial cavity. No visible retained products of conception. IMPRESSION: 1. No appreciable retained products of conception within uterine cavity. Electronically authenticated by: ASHLEY NOEL Date: 2022-09-15 15:42 Normal [facility] US PREG TVon 09-13-2022 US PREG [...] was not identified. Normal [facility] CBC AUTO DIFFon 08-16-2022 BASO # 0.0 103/ul Normal 0.0-0.1 [facility] Comment on above: Performed By: #### C BC #### [facility] [address] [address] [address] Aleah Peres Basophils/100 WBC (Bld) 0.4 % Normal 0.2-2.0 [facility] Comment on above: Performed By: #### C BC #### [facility] [address] [place] [address] Dr. Aleah Peres EO # 0.1 103/ul Normal 0.0-0.7 [facility] Comment on above: Performed By: #### C BC #### [facility] [address] [place] [address] Dr. Aleah Peres Eosinophils/100 WBC (Bld) 1.4 % Normal 0.9-7.0 [facility] Comment on above: Performed By: #### C BC #### [facility] [address] [place] [address] Dr. Aleah Peres Erythrocyte distribution width (RBC) [Ratio] 13.6 % Normal 11.0-15.0 [facility] Comment on above: Performed By: #### C BC #### [facility] [address] [place] [address] Dr. Aleah Peres Hematocrit (Bld) [Volume fraction] 32.4 % Critically low 36.0-48.0 [facility] Comment on above: Performed By: #### C BC #### [facility] [address] [place] [address] Dr. Aleah Peres Hemoglobin (Bld) [Mass/Vol] 11.2 g/dL Critically low 12.0-16.0 [facility] Comment on above: Performed By: #### C BC #### [facility] [address] [place] [address] Dr. Aleah Peres IG # 0.02 10e3/ul Normal 0.00-0.03 [facility] Comment on above: Performed By: #### C BC #### [facility] [address] [place] [address] Dr. Aleah Peres IG % 0.3 % Normal 0.0-0.5 [facility] Comment on above: Performed By: #### C BC #### [facility] [address] [place] [address] Dr. Aleah Peres LYMPH # 2.4 103/ul Normal 1.2-3.8 [facility] Comment on above: Performed By: #### C BC #### [facility] [address] [place] [address] Dr. Aleah Peres Lymphocytes/100 WBC (Bld) 32.3 % Normal 20.5-60.0 [facility] Comment on above: Performed By: #### C BC #### [facility] [address] [place] [address] Dr. Aleah Peres MANUAL DIFF REQ NO Normal [facility] Comment on above: Performed By: #### C BC #### [facility] [address] [place] [address] Dr. Aleah Peres MCH (RBC) [Entitic mass] 26.9 pg Normal 26.7-34.0 [facility] Comment on above: Performed By: #### C BC #### [facility] [address] [place] [address] Dr. Aleah Peres MCHC (RBC) [Mass/Vol] 34.6 g/dL Normal 29.9-35.2 [facility] Comment on above: Performed By: #### C BC #### [facility] [address] [place] [address] Dr. Aleah Peres MCV (RBC) [Entitic vol] 77.9 fL Critically low 81.0-99.0 [facility] Comment on above: Performed By: #### C BC #### [facility] [address] [place] [address] Dr. Aleah Peres MONO # 0.7 103/ul Normal 0.3-0.8 [facility] Comment on above: Performed By: #### C BC #### [facility] [address] [place] [address] Dr. Aleah Peres Monocytes/100 WBC (Bld) 9.1 % Normal 1.7-12.0 [facility] Comment on above: Performed By: #### C BC #### [facility] [address] [place] [address] Dr. Aleah Peres NEUT # 4.1 103/ul Normal 1.4-6.5 [facility] Comment on above: Performed By: #### C BC #### [facility] [address] [place] [address] Dr. Aleah Peres Neutrophils/100 WBC (Bld) 56.5 % Normal 43.0-75.0 [facility] Comment on above: Performed By: #### C BC #### [facility] [address] [place] [address] Dr. Aleah Peres Platelet mean volume (Bld) [Entitic vol] 9.4 fL Critically low 9.5-13.5 [facility] Comment on above: Performed By: #### C BC #### [facility] [address] [place] [address] Dr. Aleah Peres PLT 303 103/ul Normal 150-450 [facility] Comment on above: Performed By: #### C BC #### [facility] [address] [place] [address] Dr. Aleah Peres RBC 4.16 106/ul Critically low 4.20-5.40 [facility] Comment on above: Performed By: #### C BC #### [facility] [address] [place] [address] Dr. Aleah Peres WBC 7.3 103/ul Normal 4.0-11.0 [facility] Comment on above: Performed By: #### C BC #### [facility] [address] [place] [address] Dr. Aleah Peres ER URINE PROFILEon 3 Bilirubin Ql (U) Negative Normal NEGATIVE [facility] Comment on above: Performed By: #### E RUR #### [facility] [address] [place] [address] Dr. Aleah Peres Clarity (U) CLEAR Normal CLEAR [facility] Comment on above: Performed By: #### E RUR #### [facility] [address] [place] [address] Dr. Aleah Peres Color (U) YELLOW Normal YELLOW [facility] Comment on above: Performed By: #### E RUR #### [facility] [address] [place] [address] Dr. Aleah OMALLEY A micrscopic examination will be performed if indicated. Normal [facility] Comment on above: Performed By: #### E RUR #### [facility] [address] [place] [address] Dr. Aleah Peres Glucose Ql (U) Negative Normal NEGATIVE [facility] Comment on above: Performed By: #### E RUR #### [facility] [address] [place] [address] Dr. Aleah Peres Hemoglobin Ql (U) Negative Normal NEGATIVE [facility] Comment on above: Performed By: #### E RUR #### [facility] [address] [place] [address] Dr. Aleah Peres Ketones Ql (U) Negative Normal NEGATIVE [facility] Comment on above: Performed By: #### E RUR #### [facility] [address] [place] [address] Dr. Aleah Peres LEUKOCYTES Negative Normal NEGATIVE [facility] Comment on above: Performed By: #### E RUR #### [facility] [address] [place] [address] Dr. Aleah Peres Nitrite Ql (U) Negative Normal NEGATIVE [facility] Comment on above: Performed By: #### E RUR #### [facility] [address] [place] [address] Dr. Aleah Peres pH (U) 6.0 [pH] Normal 5-9 [facility] Comment on above: Performed By: #### E RUR #### [facility] [address] [place] [address] Dr. Aleah Peres SPEC GRAVITY 1.020 Normal 1.005-<=1.025 [facility] Comment on above: Performed By: #### E RUR #### [facility] [address] [place] [address] Dr. Aleah Peres UA PROTEIN Negative Normal NEGATIVE/ TRACE [facility] Comment on above: Performed By: #### E RUR #### [facility] [address] [place] [address] Dr. Aleah Peres UR MICRO IND NOT INDICATED Normal [facility] Comment on above: Performed By: #### E RUR #### [facility] [address] [place] [address] Dr. Aleah Peres Urobilinogen Qn (U) 0.2 {Edmund'U}/dL Normal 0.2 - 1. 0 [facility] Comment on above: Performed By: #### E RUR #### [facility] [address] [place] [address] Dr. Aleah Peres PROF 14(COMP METB)on 023 Albumin [Mass/Vol] 3.0 g/dL Critically low 3.4-5.0 [facility] Comment on above: Performed By: #### C MP #### [facility] [address] [place] [address] Dr. Aleah Peres Albumin/Globulin [Mass ratio] 0.8 {ratio} Normal [facility] Comment on above: Performed By: #### C MP #### [facility] [address] [place] [address] Dr. Aleah Peres ALP [Catalytic activity/Vol] 52 U/L Normal 46-116 [facility] Comment on above: Performed By: #### C MP #### [facility] [address] [place] [address] Dr. Aleah Peres ALT [Catalytic activity/Vol] 15 U/L Normal 14-59 [facility] Comment on above: Performed By: #### C MP #### [facility] [address] [place] [address] Dr. Aleah Peres Anion gap [Moles/Vol] 10.2 mmol/L Normal [facility] Comment on above: Performed By: #### C MP #### [facility] [address] [place] [address] Dr. Aleah Peres AST [Catalytic activity/Vol] 13 U/L Critically low 15-37 [facility] Comment on above: Performed By: #### C MP #### [facility] [address] [place] [address] Dr. Aleah Peres Bilirubin [Mass/Vol] 0.2 mg/dL Normal 0.2-1.0 [facility] Comment on above: Performed By: #### C MP #### [facility] [address] [place] [address] Dr. Aleah Peres Calcium [Mass/Vol] 9.1 mg/dL Normal 8.5-10.1 [facility] Comment on above: Performed By: #### C MP #### [facility] [address] [place] [address] Dr. Aleah Peres Chloride [Moles/Vol] 100 mmol/L Normal 98-107 [facility] Comment on above: Performed By: #### C MP #### [facility] [address] [place] [address] Dr. Aleah Peres CO2 [Moles/Vol] 28.8 mmol/L Normal 21.0-32.0 [facility] Comment on above: Performed By: #### C MP #### [facility] [address] [place] [address] Dr. Aleah Peres Creatinine [Mass/Vol] 0.56 mg/dL Normal 0.55-1.02 [facility] Comment on above: Performed By: #### C MP #### [facility] [address] [place] [address] Dr. Aleah Peres EGFR-AF NEPALESE >60 Normal >=60 [facility] Comment on above: Performed By: #### C MP #### [facility] [address] [place] [address] Dr. Aleah Peres EGFR-NON AF NEPALESE >60 Normal >=60 [facility] Comment on above: Performed By: #### C MP #### [facility] [address] [place] [address] Dr. Aleah Peres Globulin (S) [Mass/Vol] 3.9 g/dL Normal [facility] Comment on above: Performed By: #### C MP #### [facility] [address] [place] [address] Dr. Aleah Peres Glucose [Mass/Vol] 90 mg/dL Normal 74-106 [facility] Comment on above: Performed By: #### C MP #### [facility] [address] [address] [address] Aleah Peres Potassium [Moles/Vol] 4.0 mmol/L Normal 3.5-5.1 [facility] Comment on above: Performed By: #### C MP #### [facility] [address] [address] [address] Aleah Peres Protein [Mass/Vol] 6.9 g/dL Normal 6.4-8.2 [facility] Comment on above: Performed By: #### C MP #### [facility] [address] [address] [address] Aleah Peres Sodium [Moles/Vol] 135 mmol/L Critically low 136-145 [facility] Comment on above: Performed By: #### C MP #### [facility] [address] [place] [address] Dr. Aleah Peres Urea nitrogen [Mass/Vol] 4.0 mg/dL Critically low 7.0-18.0 [facility] Comment on above: Performed By: #### C MP #### [facility] [address] [address] [address] Aleah Peres Urea nitrogen/Creatinine [Mass ratio] 7.1 mg/mg Normal [facility] Comment on above: Performed By: #### C MP #### [facility] [address] [place] [address] Dr. Aleah Peres PAP ACOG PANEL 2: 21 to 29on 08-02-2022 . . Normal [facility] Comment on above: Result Comment: Perf ormed at: WB Performed By: #### [id number] #### [facility] [address] [place] [address] Dr. Aleah Peres Age Gdln ACOG Testing - [facility] Comment on above: Performed By: #### [id number] #### [facility] [address] [address] [address] Aleah Peres DIAGNOSIS: Comment Abnormal [facility] Comment on above: Result Comment: EPIT HELIAL CELL ABNORMALITY. LOW GRADE SQUAMOUS INTRAEPITHELIAL LESION (LSIL). Performed at: WB Performed By: #### [id number] #### [facility] [address] [place] [address] Dr. Aleah Peres Electronically signed by: Comment Normal [facility] Comment on above: Result Comment: Amena Arciniega MD, Pathologist Performed at: WB Performed By: #### [id number] #### [facility] [address] [place] [address] Dr. Aleah Peres Methodology: Comment Normal [facility] Comment on above: Result Comment: This liquid based ThinPrep(R) pap test was screened with the use of an image guided system. Performed at: WB Performed By: #### [id number] #### [facility] [address] [place] [address] Dr. Aleah Peres Note: Comment Normal [facility] Comment on above: Result Comment: The Pap smear is a screening test designed to aid in the detection of premalignant and malignant conditions of the uterine cervix. It is not a diagnostic procedure and should not be used as the sole means of detecting cervical cancer. Both false-positive and false-negative reports do occur. . Performed at: WB Performed By: #### [id number] #### [facility] [address] [place] [address] Dr. Aleah Peres Pathologist Provided ICD10 Comment Normal [facility] Comment on above: Result Comment: [id number]. [id number] Performed at: WB Performed By: #### [id number] #### [facility] [address] [place] [address] Dr. Aleah Peres Performed by: Comment Normal [facility] Comment on above: Result Comment: Caitlyn Crenshaw, Hydrodynamicist (ASCP) Performed at: BA Performed By: #### [id number] #### [facility] [address] [place] [address] Dr. Aleah Peres Recommendation: Comment Abnormal [facility] Comment on above: Result Comment: Sugg est follow up as clinically appropriate. Performed at: WB Performed By: #### [id number] #### [facility] [address] [place] [address] Dr. Aleah Peres Reflex Criteria: Comment Normal [facility] Comment on above: Result Comment: The HPV DNA reflex criteria were not met with this specimen result therefore, no HPV testing was performed. . Performed at: WB Performed By: #### [id number] #### [facility] [address] [address] [address] Aleah Peres Specimen adequacy: Comment Normal [facility] Comment on above: Result Comment: Sati sfactory for evaluation. Endocervical and/or squamous metaplastic cells (endocervical component) are present. Performed at: WB Performed By: #### [id number] #### [facility] [address] [address] [address] Aleah Peres Covid-19 PCR ([facility])on 05-25 SARS-CoV-2 (COVID-19) RNA MARY ELLEN+probe Ql (Unsp spec) Not detected Normal NOT DETECTED [facility] Comment on above: Result Comment: When [...] for this test is supported by the Coordinator [employer]'s declaration that [...] By: #### P REGQNT #### [facility] [address] [place] [address] Dr. Aleah Peres Vital Signs Date Time Vital Sign Value Performing Clinician Nelly smith 08-14-2024 12:05-0500 Body mass index (BMI) [Ratio] 31.91 kg/m2 Teresitaarmando Ruizo VuCOMP Work Phone: [facility] 08-14-2024 12:05-0500 Body weight 83.01 kg Teresita Ayesha DO Work Phone: [facility] 08-14-2024 12:05-0500 Diastolic blood pressure 60 mm[Hg] Teresita Ayesha DO Work Phone: [facility] 08-14-2024 12:05-0500 Systolic blood pressure 110 mm[Hg] Teresita Ayesha DO Work Phone: [facility] 07-16-2024 10:25-0500 Body mass index (BMI) [Ratio] 30.71 kg/m2 Dryden PA Work Phone: [facility] 07-16-2024 10:25-0500 Body weight 79.89 kg Mu PA Work Phone: [facility] 07-16-2024 10:25-0500 Diastolic blood pressure 70 mm[Hg] Dryden PA Work Phone: [facility] 07-16-2024 10:25-0500 Systolic blood pressure 120 mm[Hg] Dryden PA Work Phone: [facility] 06-07-2024 13:39-0500 Body mass index (BMI) [Ratio] 31.35 kg/m2 [facility] Nurse [facility] 06-07-2024 13:39-0500 Body weight 81.56 kg [facility] Nurse [facility] 06-07-2024 13:39-0500 Diastolic blood pressure 70 mm[Hg] [facility] Nurse [facility] 06-07-2024 13:39-0500 Systolic blood pressure 118 mm[Hg] Nom Nurse [facility] 05-31-2024 09:40-0500 Body mass index (BMI) [Ratio] 30.86 kg/m2 Mu PA Work Phone: [facility] 05-31-2024 09:40-0500 Body weight 80.29 kg May Mu PA Work Phone: [facility] 05-31-2024 09:40-0500 Diastolic blood pressure 72 mm[Hg] Dryden PA Work Phone: [facility] 05-31-2024 09:40-0500 Systolic blood pressure 118 mm[Hg] Amy VILLATORO Work Phone: [facility] 08-31-2023 13:43-0500 Body mass index (BMI) [Ratio] 33.2 kg/m2 Teresita Ayesha DO Work Phone: [facility] 08-31-2023 13:43-0500 Body weight 86.36 kg Teresita Ayesha DO Work Phone: [facility] 08-31-2023 13:43-0500 Diastolic blood pressure 70 mm[Hg] Teresita Ayesha DO Work Phone: [facility] 08-31-2023 13:43-0500 Systolic blood pressure 114 mm[Hg] Teresita Ayesha DO Work Phone: [facility] Healthcare Encounters Encounter Date Encounter Type Care Provider Facility Start: 08-28-2024 End: 08-28-2024 ambulatory TERESITA AYESHA Not Available Start: 08-14-2024 End: 08-14-2024 Bamboo flowsheet Teresita Ayesha DO Work Phone: [facility] Start: 08-14-2024 End: 08-14-2024 Bamboo flowsheet Teresita Ayesha DO Work Phone: [facility] Start: 08-14-2024 End: 08-14-2024 Office outpatient visit 15 minutes Teresita Ayesha DO Work Phone: [facility] Comment on above: 18 weeks gestation o f ; Second trimester ; Screening, , for anatomic survey; Other headache syndrome; Constipation, unspecified constipation type Start: 08-14-2024 End: 08-14-2024 ambulatory TERESITA AYESHA Not Available Start: 08-01-2024 End: 08-01-2024 ambulatory TERESITA AYESHA Not Available Start: 07-16-2024 End: 07-16-2024 Bamboo flowsheet Amy VILLATORO Work Phone: [facility] Start: 07-16-2024 End: 07-24-2024 Bamboo flowsheet Amy VILLATORO Work Phone: [facility] Start: 07-16-2024 End: 07-24-2024 Clinisync Result Encounter Amy VILLATORO Work Phone: [facility] External Department Unsolicited Start: 07-16-2024 End: 07-16-2024 ambulatory AMY DOBBINS Not Available Start: 07-16-2024 End: 07-16-2024 Patient encounter procedure Amy VILLATORO Work Phone: [facility] Healthcare Start: 07-16-2024 End: 07-16-2024 Periodic preventive med est patient 18-39 yrs Amy VILLATORO Work Phone: [facility] Comment on above: Screening, , for anatomic survey; Well woman exam with routine gynecological exam; 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; Second trimester ; Encounter for screening for cervical length Start: 06-14-2024 End: 06-14-2024 Clinisync Result Encounter Teresita Ayesha DO Work Phone: [facility] Unsolicited Start: 06-14-2024 End: 06-14-2024 Clinisync Result Encounter Teresita Ayesha DO Work Phone: [facility] Unsolicited Start: 06-07-2024 End: 06-07-2024 Office outpatient visit 5 minutes [facility] Ayesha Nurse [facility] Comment on above: GA: 9w1d Start: 06-07-2024 End: 06-07-2024 ambulatory TERESITA AYESHA Not Available Start: 05-31-2024 End: 05-31-2024 Bamboo [...] procedure Navneet Rodriguez DO Work Phone: [facility] Comment on above: Encounter for pre-em ployment drug testing (Primary Dx) Start: 11-30-2023 End: 11-30-2023 ambulatory AMY DOBBINS Not Available Start: 10-12-2023 End: 10-12-2023 ambulatory TERESITA HODGE Not Available Start: 09-28-2023 End: 09-28-2023 ambulatory TERESITA HODGE Not Available Start: 09-14-2023 End: 09-14-2023 ambulatory AMY DOBBINS Not Available Start: 08-31-2023 End: 08-31-2023 Office outpatient visit 15 minutes Teresita Hodge DO Work Phone: [facility] Comment on above: Third trimester preg hanh Start: 08-31-2023 End: 08-31-2023 ambulatory TERESITA HODGE Not Available Start: 11-10-2022 End: 11-10-2022 ambulatory [...] DR TERESITA HODGE . [facility] Start: 09-15-2022 End: 09-16-2022 ambulatory TERESITA HODGE Facility:[facility] Start: 09-15-2022 End: 02-22-[address] TERESITA HODGE . Facility:[facility] Start: [...] Date Procedure Procedure Detail Performing Clinician Start: 08-14-2024 Urnls dip stick/tabl et rgnt non-auto w/o micrscp Teresita Ayesha DO Work Phone: Start: 07-16-2024 Urnls dip stick/tabl et rgnt non-auto w/o micrscp Amy VILLATORO Work Phone: Start: 07-16-2024 IGP,APTIMA HPV,AGE GDLN Amy VILLATORO Work Phone: Start: 06-14-2024 BOX [...] Treatment Date Care Activity Detail Author Start: 09-12-2024 End: 09-12-2024 Patient encounter procedure 09/12/2024 10:30 AM EST Routine [facility] [address] [id number] Amy Dobbins PA [address] [place], [place] [id number] [facility] Start: 08-28-2024 End: 08-28-2024 Professional / ancillary services management 08/28/2024 1:00 PM EST Ancillary Procedure [facility] [address] [place] [phone] [facility] Start: 08-14-2024 End: 10-12-2024 Alpha fetoprotein, maternal Alpha fetoprotein, maternal Lab Routine Screening, , for anatomic survey Expected: 08/14/2024 (Approximate), Expires: 10/12/2024 [facility] Comment on above: Expected: 08/14/2024 (Approximate), Expires: 10/12/2024 Start: 08-14-2024 End: 08-14-2025 US for US OB 14+ weeks anatomy scan Imaging Routine Screening, , for anatomic survey Expected: 08/14/2024, Expires: 08/14/2025 [facility] Work Phone: Comment on above: Expected: 08/14/2024 , Expires: 08/14/2025 Start: 08-14-2024 End: 08-14-2024 Patient encounter procedure [facility] Comment on above: Arrived Start: 08-01-2024 End: 08-01-2024 Professional / ancillary services management 08/01/2024 11:30 AM EST Ancillary Procedure [facility] [address] [phone] [facility] Start: 07-16-2024 End: 08-16-2024 [...] cervical length Expected: 07/16/2024 (Approximate), Expires: 07/16/2025 [facility] Comment on above: Expected: 07/16/2024 (Approximate), Expires: 07/16/2025 Start: 07-09-2024 End: 07-09-2024 Patient encounter procedure 07/09/2024 2:50 PM EST Routine [facility] [address] [place] [phone] Teresita Hodge, [address] [place] [address] [facility] Start: 06-07-2024 End: 06-07-2025 ABO/Rh ABO/Rh Lab Routine Missed menses , unspecified gestational age Expected: 06/07/2024 (Approximate), Expires: 06/07/2025 [facility] Comment on above: Expected: 06/07/2024 (Approximate), Expires: 06/07/2025 Start: 06-07-2024 End: 06-07-2025 Blood type and Indirect antibody screen panel - Blood Type and screen Lab Routine Missed menses , unspecified gestational age Expected: 06/07/2024 (Approximate), Expires: 06/07/2025 [facility] Work Phone: Comment on above: Expected: 06/07/2024 (Approximate), Expires: 06/07/2025 Start: 06-07-2024 End: 06-07-2025 Drugs of abuse panel - Urine by Screen method Rapid drug screen, urine Lab Routine , unspecified gestational age Encounter for supervision of normal first in first trimester Expected: 06/07/2024 (Approximate), Expires: 06/07/2025 [facility] Comment on above: Expected: 06/07/2024 (Approximate), Expires: 06/07/2025 Start: 06-07-2024 End: 06-07-2024 ambulatory 06/07/2024 1:30 PM EST Initial [facility] [address] [place] [address] [facility] Start: 06-07-2024 End: 06-07-2024 Professional / ancillary services management 06/07/2024 1:00 PM EST Ancillary Procedure [facility] [address] [place] [address] [facility] Start: 05-21-2024 End: 05-21-2024 Patient encounter procedure 05/21/2024 11:00 AM EDT Office Visit [facility] [address] [place] [phone] Amy Dobbins, PA [address] [place] [address] [facility] Start: 09-14-2023 End: 09-14-2023 Patient encounter procedure 09/14/2023 3:50 PM EST Routine [facility] [address] [place] [phone] Amy Dobbins PA [address] [place] [address] [facility] Bacteria identified in Urine by Culture Urine culture Microbiology Routine Missed menses Ordered: 06/07/2024 [facility] Comment on above: Ordered: 06/07/2024 CBC W Auto Differential panel - Blood CBC and differential Lab Routine Missed menses , unspecified gestational age Ordered: 06/07/2024 [facility] Comment on above: Ordered: 06/07/2024 CHLAMYDIA TRACHOMATI S (GENITO/STI) CHLAMYDIA TRACHOMATIS (GENITO/STI) Lab Routine Second trimester Ordered: 07/16/2024 [facility] Comment on above: Ordered: 07/16/2024 Cytology Cervical or vaginal smear or scraping study Pap Smear Pathology and Cytology Routine Well woman exam with routine gynecological exam 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 Second trimester Ordered: 07/16/2024 [facility] Work Phone: Comment on above: Ordered: 07/16/2024 Hemoglobin A1c/Hemoglobin.total in Blood Hemoglobin A1c Lab Routine Missed menses , unspecified gestational age Ordered: 06/07/2024 [facility] Comment on above: Ordered: 06/07/2024 Hepatitis B virus surface Ag [Presence] in Serum or Plasma by Immunoassay Hepatitis B surface antigen Lab Routine Missed menses , unspecified gestational age Ordered: 06/07/2024 [facility] Comment on above: Ordered: 06/07/2024 Hepatitis C virus Ab [Presence] in Serum or Plasma by Immunoassay Hepatitis C antibody Lab Routine Missed menses , unspecified gestational age Ordered: 06/07/2024 [facility] Comment on above: Ordered: 06/07/2024 HIV-1/HIV-2 antigen/antibody combination immunoassay HIV-1 and HIV-2 antibodies Lab Routine Missed menses , unspecified gestational age Ordered: 06/07/2024 [facility] Comment on above: Ordered: 06/07/2024 Neisseria gonorrhoea e DNA [Presence] in Unspecified specimen by MARY ELLEN with probe detection Neisseria gonorrhea DNA probe, direct Lab Routine Second trimester Ordered: 07/16/2024 [facility] Comment on above: Ordered: 07/16/2024 Reagin Ab [Presence] in Serum by RPR RPR Lab Routine Missed menses , unspecified gestational age Ordered: 06/07/2024 [facility] Comment on above: Ordered: 06/07/2024 Rubella antibody, IgG Rubella an tibody, IgG Lab Routine Missed menses , unspecified gestational age Ordered: 06/07/2024 [facility] Comment on above: Ordered: 06/07/2024 SURESWAB(R) ADVANCED VAGINITIS PLUS, TMA SURESWAB(R) ADVANCED VAGINITIS PLUS, TMA Pathology and Cytology Routine Second trimester Ordered: 07/16/2024 [facility] Comment on above: Ordered: 07/16/2024 Payers Date Payer Category Payer Medicaid [id number] 2022 Medicaid [id number] 1999 Unknown [id number] 2.16.84 0.1.101460.3.579.2.593 1999 Unknown [id number] 2.16.84 0.1.973263.3.579.2.593 1999 Unknown [id number] 2.16.84 0.1.995569.3.579.2.593 1999 Unknown [id number] 2.16.84 0.1.300795.3.579.2.593 1999 Unknown [id number] 2.16.84 0.1.968317.3.579.2.593 1999 Unknown [id number] 2.16.84 0.1.935295.3.579.2.593 1999 Unknown [id number] 2.16.84 0.1.590752.3.579.2.593 1999 Unknown [id number] 2.16.84 0.1.634241.3.579.2.593 1999 Unknown [id number] 2.16.84 0.1.415835.3.579.2.593 1999 Unknown [id number] 2.16.84 0.1.991050.3.579.2.593 1999 Unknown [id number] 2.16.84 0.1.660609.3.579.2.1259 1999 Unknown [id number] 2.16.84 0.1.266864.3.579.2.1259 1999 Unknown [id number] 2.16.84 0.1.603228.3.579.2.1259 1999 Unknown [id number] 2.16.84 0.1.983914.3.579.2.1259 1999 Unknown [id number] 2.16.84 0.1.242191.3.579.2.1259 1999 Unknown [id number] 2.16.84 0.1.143870.3.579.2.9 1999 Unknown [id number] 2.16.84 0.1.857044.3.579.2.1259 1999 Unknown [id number] 2.16.84 0.1.503864.3.579.2.9 1999 Unknown [id number] 2.16.84 0.1.685075.3.579.2.1259 1999 Unknown [id number] 2.16.84 0.1.147479.3.579.2.1259 1999 Unknown [id number] 2.16.84 0.1.843140.3.579.2.1259 1999 Unknown [id number] 2.16.84 0.1.709116.3.579.2.1259 1959 Unknown [id number] 1959 Unknown [id number] Social History Date Type Detail Facility Start: 04-18-[address] [facility] Never smoked tobacco [facility] Start: 08-31-2023 End: 07-16-2024 Alcohol intake Lifetime non-drinker (finding) [facility] Start: 06-13-2023 End: 08-31-2023 History of Social function [facility] Start: 06-13-2023 End: 08-31-2023 Tobacco use panel [facility] Start: 04-18-2023 Alcohol Comment caffeine: none [facility] Start: 02-17-2023 [facility] Start: 2000 Sex Assigned At Not on file [facility] Clinical Notes 09-15-2022 to 08-14-2024 Sharon Hare LPN - 08/14/2024 10:50 AM SHAUNA Hammonds - 07/16/2024 9:50 AM Juaquin Perry LPN - 06/07/2024 1:30 PM SHAUNA Hammonds - 05/31/2024 9:10 AM Chloe Hare LPN - 08/31/2023 1:40 PM EST Note Date & Type Note Facility 08-14-2024 History of Presen t illness Narrative Reason for Appointment: Patient ID: Alexandra Higgins is a 24 y.o. female who presents for Routine Visit Patient presents today for Return OB appointment. MEDICATIONS Current Outpatient Medications Medication Instructions magnesium oxide (MAG-OX) 400 mg, Oral, Daily MV-Min-Fe Fum-FA-DHA (CENTRUM SPECIALIST PO) 1 each, Daily ALLERGIES No Known Allergies PROBLEMS Active [...] nursing note reviewed. Exam conducted with a quarter inspector present. Vitals: Estimated body mass index is 30.71 kg/m as calculated from the following: Height as of 11/10/22: 5' 3.5 . Weight as of 07/16/24: 176 lb 1.9 oz. BP: Patient's last menstrual period was 04/04/2024. ASSESSMENT & PLAN ICD-10-CM 1. 18 weeks gestation of Z3A.18 POCT urinalysis dipstick manually resulted 2. Second trimester Z34.92 3. Screening, , for anatomic survey Z36.89 US OB 14+ weeks anatomy scan US OB 14+ weeks anatomy scan Alpha fetoprotein, maternal Alpha fetoprotein, maternal CANCELED: US OB 14+ weeks anatomy scan CANCELED: Alpha fetoprotein, maternal CANCELED: Alpha fetoprotein, maternal 4. Other headache syndrome G44.89 magnesium oxide (Mag-Ox) 400 MG tablet Patient presents today for a routine obstetrics appointment. Patient is currently 18w6d with a Estimated Date of Delivery: 01/09/25. Pt given msAFP and anatomy scan order to have scheduled. Pt having headaches- rx for mag oxide faxed to pharmacy. Pt to return in 4 weeks for scheduled Ob appt. Documented by Sharon Hare LPN on behalf of: Teresita Hodge DO documented in this encounter [facility] 07-16-2024 History of Presen t illness Narrative [...] nursing note reviewed. Exam conducted with a quarter inspector present. Vitals: Estimated body mass index is [...] obtained without difficulty and patient was given [facility] order to have obtained. Orders Placed This [...] of: SHAUNA Rizvi documented in this encounter [facility] 06-07-2024 History of Presen t illness Narrative [...] or undercooked meat, and stay away from [facility]. Patient has also been advised to [...] Brianna Perry LPN documented in this encounter [facility] 05-31-2024 History of Presen t illness Narrative [...] of: SHAUNA Rizvi documented in this encounter [facility] 03-06-2024 History of Presen t illness Narrative Pt presents today for a pre-employment drug screen, BAT, Physical Exam, Audiogram, and PFT for [place]. Pt verified by photo ID. documented in this encounter [facility] 08-31-2023 History of Presen t illness Narrative [...] nursing note reviewed. Exam conducted with a quarter inspector present. Vitals: Estimated body mass index is [...] DO documented in this encounter [facility] 09-15-2022 Note EXAMINATION: US PREG TV HISTORY: [...] authenticated by: ASHLEY NOEL Date: 2022-09-15 07:41 [facility] 09-15-2022 Note OPERATIVE NOTE OPERATION DATE: 09/15/2022 PROCEDURE: Suction D AND C. PREOPERATIVE DIAGNOSIS: First trimester missed at 10 weeks. POSTOPERATIVE DIAGNOSIS: First trimester missed at 10 weeks. ANESTHESIA: General. SURGEON: Teresita Hodge D.O. TIMBER DEADENER: None. FINDINGS: Products of conception. SPECIMEN: Products [...] products of conception were removed using an 9-Malay suction curette. Excellent hemostasis was noted. The patient tolerated the procedure well. Sponge, lap, and needle counts were correct x 2. All instruments were then removed from the patient's vagina. The patient was taken to the Recovery Room in stable condition. ?? [facility] Evaluation note Diagnosis Third trimester state, incidental [...] cervical length documented [facility] Diagnosis 18 weeks gestation of Second trimester state, incidental Screening, , for anatomic survey Encounter for anatomic survey Other headache syndrome Constipation, unspecified constipation type documented in this encounter [facility] Summary Purpose Family History No Family History Records FoundNo Family History Records FoundNo Family History Records Found Advance Directives No Advanced Directives Records FoundNo Advanced Directives Records FoundNo Advanced Directives Records Found Additional Source Comments INFORMATION SOURCE (unrecogn ized section and content) DATE CREATED AUTHOR 10/12/2022 [facility] DATE CREATED AUTHOR AUTHOR'S ORGANIZ ATION 12/08/2022 [facility] DATE CREATED AUTHOR AUTHOR'S ORGANIZ ATION 08/30/2024 [facility] EPIC Reason for Visit [...] BE BASED ON THE PRIMARY CLINICAL RECORDS. [employer] [facility]. provides no warranty or guarantee of the accuracy or completeness of information in this document.
[2024-09-01 01:07] LABS: AFP Value 86.3 ng/mL (.); Gest. Age on Collection Date 21.1 weeks (.); Insulin Dep Diabetes No (.); Maternal Age At EDD 25.5 yr (.); OSBR Risk 1 IN 7620 (.); Results Report (.)
== END 2024-08-30 14:07 | disposition home or self-care (01) ==
LOC: LAB 14:06
PROVIDERS: Visit Provider Obstetrics & Gynecology
DX: Z34.92 Encounter for supervision of normal pregnancy, unspecified, second trimester (principal); Z36.89 Encounter for other specified antenatal screening
CPT/HCPCS: 36415; 82105

== ENCOUNTER 2024-09-06 03:59 | Emergency (ER) | payer MEDICAID, SELFPAY ==
[2024-09-06 04:03] VITALS: BP 118/64; PULSE 97; TEMP 36.7; O2SAT 97; BMI 32.4
--- OUTSIDE RECORDS SUMMARY | 2024-09-06 04:07 | XMS_ITS | CCD ---
Author Organization [facility] Care Team Providers Care Individual Pension Consultant Name Role Phone ALEXIA BARRETT Attending [...] (Original) docusate sodium 100 mg oral capsule (3 sources) Start: 08-14-2024 End: 11-12-2024 take 1 capsule by mouth twice daily as needed for constipation docusate sodium (Colace) 100 MG capsule Indications: Constipation, unspecified constipation type Take 1 capsule (100 mg) by mouth 2 (two) times a day as needed for constipation 60 capsule 5 08/14/2024 11/12/2024 Active magnesium oxide 400 mg oral tablet (3 sources) Start: 08-14-2024 End: 08-14-2025 take 1 tablet by mouth once daily magnesium oxide (Mag-Ox) 400 MG tablet Indications: Other headache syndrome Take 1 tablet (400 mg) by mouth Daily 30 tablet 11 08/14/2024 08/14/2025 Active MV-Min-Fe Fum-FA-DHA (CENTRUM SPECIALIST PO) (16 sources) take 1 dose by mouth once in the morning MV-Min-Fe Fum-FA-DHA (CENTRUM SPECIALIST PO) Take 1 each by mouth in the morning. Active take 1 dose by mouth once in the morning MV-Min-Fe Fum-FA-DHA (CENTRUM SPECIALIST PO) Take 1 each by mouth in the morning. 0 Active Progesterone 200 MG supposit ory (5 sources) Start: 08-28-2024 End: 09-27-2024 Progesterone 200 MG supposit ory Indications: Short cervix affecting Insert 200 mg into the vagina at bedtime Insert suppository vaginally every night at bedtime until 12 weeks gestation 30 suppository 3 08/28/2024 09/27/2024 Active Start: 06-29-2024 End: 07-29-2024 Progesterone 200 MG supposit ory Indications: History of miscarriage Insert 200 mg into the vagina at bedtime Insert suppository vaginally every night at bedtime until 12 weeks gestation 30 suppository 2 06/29/2024 07/29/2024 Active Completed/Discontinued Medications Medication Drug Class(es) Dates Sig (Normalized) Sig (Original) [id number] 200 actuat albuterol 0.09 mg/actuat metered dose [...] by mouth in the morning. 30 capsule 08/16/2023 08/31/2023 Discontinued (Side effects) 27-1 MG tablet (1 source) Start: 09-21-2022 End: 08-31-2023 27-1 MG tablet 1 (one) time each day at the same time. 0 09/21/2022 08/31/2023 Discontinued (Therapy completed) ME-Hfx-WL-Kelley-3 ( Gummies/DHA & FA) 0.4-32.5 MG chewable tablet (1 source) Start: 03-03-2023 End: 08-31-2023 EB-Uhm-US-Kelley-3 ( Gummies/DHA & FA) 0.4-32.5 MG chewable [...] Episodic Other nutritional; endocrine; and metabolic disorders (15 sources) Obesity; Translations: [Obesity, unspecified] Onset: 10-26-2023 [...] Onset: 08-17-2022 Episodic Other female genital disorders (15 sources) Disorder of female genital system; Translations: [...] Test Name Value Interpretation Reference Range Facility AFP, SERUM, OPEN SPINA BIFID Aon 09-01-2024 [address] MOM [address] [facility] Schematic Labs e AFP VALUE 86.3 ng/mL . [facility] COMMENT: Comment . [facility] Comment on above: Kristi Han , Ph.D., [facility] Director References: Available Upon Request. Multiples Of Median Cutoffs For AFP Elevations [place]ona 2.5 Black 2.8 IDD 2.0 Twins 4.5 Abbreviation Definitions IDD - Insulin Dep Diabetes OSBR - Open Spina Bifida Risk For further inquiries contact [facility] at [phone]. This test was developed and its performance characteristics determined by [employer]. It has not been cleared or approved by the Food and Drug Administration. Performed at: [facility] RTP [address], [place], [place] [id number] Administrative Volunteer: Marisel Lewis [facility], Phone: [phone] GEST. AGE ON COLLECTION DATE 20.[address] [facility] Healthcare GESTAT. AGE BASED ON LMP . [facility] Comment on above: Recalculations are n ot recommended when gestational dating by LMP and ultrasound are within 10 days. INSULIN DEP DIABETES No . [facility] Healthcare INTERPRETATION Comment . [facility] Comment on above: Interpretation: Scre en Negative This result is screen negative for OSB. The AFP MoM calculated is based on the gestational age provided. MS-AFP can identify up to 80% of open neural tube defects. Closed neural tube defects and some open defects may not be detected by this test. This test does not screen for Down Syndrome or Trisomy 18. If screening for Down Syndrome or Trisomy 18 is desired, contact [facility] to discuss available options. The [employer] recommends amniocentesis be offered to women age 35 and older. MATERNAL [age]ERN 24.[address] [facility] InPronto MULTIPLE GESTATION No . [facility] OSBR RISK 1 IN 7620 . [facility] RACE Black . [facility] Schematic Labs e RESULTS Report . [facility] TEST RESULTS: Negative . [facility] care WEIGHT [address] [facility] Healthcar e N N LMP [id number] N 1 183 N N N N N Black/ [facility] e US OB 14+ WEEKS ANATOMY SCAN on [...] Negative Negative - 4(70) +++ mg/dL [facility] Blood, UA Negative Negative - 50 William/mcL [facility] Clarity, UA Clear [facility] Healthmt re Color, UA Yellow [facility] Glucose, UA Negative Negative - 2000(110) ++++ mg/dL [facility] Interpretation and review of laboratory results Normal [facility] Ketones, UA Negative Negative - 160(16) ++++ mg/dL [facility] Leukocytes, UA Negative Negative - 500+++ Roma/mcL [facility] Nitrite, UA Negative Negative - Positive [facility] pH, UA 7 5 - 9 [facility] e Protein, UA Negative Negative - 2000(20) ++++ mg/dL [facility] Spec Grav, UA 1.02 1 - 1.03 [facility] Urobilinogen, UA 0.2 0.2 - 12 mg/dL [facility] Health[facility] e US OB TRANSVAGINALon 025 US [...] 3.5 cm in length. Dictated and transcribed 01/09/25/dpd This report has been electronically signed and approved by the interpreting radiologist. Normal Not Available Comment on above: Order Comment: US OB TRANSVAGINAL (CERVICAL LENGTH) Estimated Date of Delivery: 01/09/25 Gestational Age as of 07/16/2024: 17w0d IGP,APTIMA HPV,AGE GDLNon AGE GDLN ACOG TESTING Note . [facility] Comment on above: TESTS RESULT FLAG UN ITS REF RANGE LAB Clinician Provided Cytology Information Source.............Cervix No. of containers..01 ThinPrep Vial Age Algo ACOG Kassidy... FLAG LEGEND: L-Low Normal,H-High Normal,LL-Alert Low,HH-Alert High <-Panic Low,>-Panic High,A-Abnormal,AA-Critical Abnormal Performed at: 01 =[facility] [address] [place] [address] Cortney Arciniega MD, IGP, RFX APTIMA HPV ASCU Note . [facility] Comment on above: TESTS RESULT FLAG UN ITS REF RANGE LAB DIAGNOSIS: 02 NEGATIVE FOR INTRAEPITHELIAL LESION OR MALIGNANCY. Specimen adequacy: 02 Satisfactory for evaluation. No endocervical component is identified. Performed by: 02 Bry Sgeundo, Mogul Operator ([facility]) . 02 Note: Note 02 The [...] <-Panic Low,>-Panic High,A-Abnormal,AA-Critical Abnormal Performed at: [address] [facility] [address] [place] [address] Cortney Arciniega MD, Performed at: =G - [facility] [address] [id number] Administrative Volunteer: Cortney Arciniega MD, Phone: [phone] Performed at: - [facility] [address] [id number] Administrative Volunteer: Cortney Arciniega MD, Phone: [phone] SPATULA-ALONE CERVIX [facility] Healthcar e Urinalysis macro (dipstick) panel (U)on 07-16-2024 Bilirubin, UA Negative Negative - 4(70) +++ mg/dL [facility] Blood, UA Negative Negative - 50 William/mcL [facility] Clarity, UA Clear [facility] re Color, UA Yellow [facility] Healthcar e Glucose, UA Negative Negative - 1999(110) ++++ mg/dL [facility] Interpretation and review of laboratory results Normal [facility] Ketones, UA Negative Negative - 160(16) ++++ mg/dL [facility] Leukocytes, UA Negative Negative - 500+++ Roma/mcL [facility] Nitrite, UA Negative Negative - Positive [facility] pH, UA 8.5 5 - 9 [facility] Healthcar e Protein, UA Negative Negative - 1999(20) ++++ mg/dL [facility] Spec Grav, UA 1.02 1 - 1.03 [facility] Urobilinogen, UA 0.2 0.2 - 12 mg/dL [facility] BOX TESTon 06-14-2024 BOX TEST SENT OUT [facility] BOX[address] [facility] Healthcar e BOX2 06/14/24 [facility] Healthcar e UNITY BOX [facility] Healthcar e HCG ( test) Ql (U)o n 06-07-2024 Interpretation and review of laboratory results Abnormal [facility] Preg Test, Ur Positive Negative [facility] Urinalysis macro (dipstick) panel (U)on 06-07-2024 Bilirubin, UA Negative Negative - 4(70) +++ mg/dL [facility] Blood, UA Negative Negative - 50 William/mcL [facility] Clarity, UA Clear [facility] Healthca re Color, UA Yellow [facility] Healthcar e Glucose, UA Negative Negative - 1999(110) ++++ mg/dL [facility] Interpretation and review of laboratory results Abnormal [facility] Ketones, UA Negative Negative - 160(16) ++++ mg/dL [facility] Leukocytes, UA Positive Negative - 500+++ Roma/mcL [facility] Comment on above: small Nitrite, UA Negative Negative - Positive [facility] pH, UA 7.5 5 - 9 [facility] Healthcar e Protein, UA Negative Negative - 1999(20) ++++ mg/dL [facility] Spec Grav, UA 1.02 1 - 1.03 [facility] Urobilinogen, UA 0.2 0.2 - 12 mg/dL [facility] Urinalysis macro (dipstick) panel (U)Ordered By: Shantel Rangel on 08-31-2023 Bilirubin, UA Negative Negative - 4(70) +++ mg/dL [facility] Blood, UA Negative Negative - 50 William/mcL [facility] Clarity, UA Clear [facility] Color, UA Yellow [facility] Glucose, UA Negative Negative - 1999(110) ++++ mg/dL [facility] Interpretation and review of laboratory results Abnormal [facility] Ketones, UA Positive Negative - 160(16) ++++ mg/dL [facility] Leukocytes, UA Trace Negative - 500+++ Roma/mcL [facility] Nitrite, UA Negative Negative - Positive [facility] pH, UA 7.5 5 - 9 [facility] e Protein, UA Trace Negative - 1999(20) ++++ mg/dL [facility] Spec Grav, UA 1.020 1 - 1.03 [facility] Urobilinogen, UA 0.2 0.2 - 12 mg/dL [facility] PAP ACOG PANEL 2: 21 to 29on 11-17-2022 . . Normal [facility] Comment on above: Performed By: #### 4 [id number] #### [facility] [address] [address] [address] Aleah Peres Age Gdln ACOG Testing - [facility] Comment on above: Performed By: #### 4 [id number] #### [facility] [address] [address] [address] Aleah Peres DIAGNOSIS: Comment [facility] Comment on above: Result Comment: NEGA TIVE FOR INTRAEPITHELIAL LESION OR MALIGNANCY. Performed By: #### 4 [id number] #### [facility] [address] [address] [address] Aleah Peres Methodology: Comment [facility] Comment on above: Result Comment: This liquid based ThinPrep(R) pap test was screened with the use of an image guided system. Performed By: #### 4 [id number] #### [facility] [address] [address] [address] Aleah Peres Note: Comment [facility] Comment on above: Result Comment: The Pap smear is a screening test designed to aid in the detection of premalignant and malignant conditions of the uterine cervix. It is not a diagnostic procedure and should not be used as the sole means of detecting cervical cancer. Both false-positive and false-negative reports do occur. . Performed By: #### 4 [id number] #### [facility] [address] [place] [address] Dr. Aleah Peres Performed by: Comment Normal [facility] Comment on above: Result Comment: Annelise Martinez Mogul Operator Performed By: #### 4 [id number] #### [facility] [address] [place] [address] Dr. Aleah Peres Reflex Criteria: Comment Normal [facility] Comment on above: Result Comment: The HPV DNA reflex criteria were not met with this specimen result therefore, no HPV testing was performed. . Performed By: #### 4 [id number] #### [facility] [address] [place] [address] Dr. Aleah Peres Specimen adequacy: Comment Normal [facility] Comment on above: Result Comment: Sati sfactory for evaluation. Endocervical and/or squamous metaplastic cells (endocervical component) are present. Performed By: #### 4 [id number] #### [facility] [address] [place] [address] Dr. Aleah Peres Cytology Cervical or vaginal smear or scraping studyon 11-10-2022 [facility] OCC BLD IMMUNO SCREENon 04-0 OCCULT BLOOD Negative Normal NEGATIVE [facility] Comment on above: Performed By: #### O BSCRN #### [facility] [address] [place] [address] Dr. Aleah Peres SURGICAL PATH REPORTon 10-11 SURGICAL PATH REPORT [facility] Department of Pathology [address] [place] [phone] Name: CAMERON HIGGINS : 2000 [facility] [id number] Number: [facility] : n: Admit 22 years Attending ALEXIA BARRETT Age: Provider: Ordering ALEXIA BARRETT Provider: Consulti Surgical Pathology Report ng: ACCESSION: COLLECTED DATE/TIME: RECEIVED DATE/TIME: PATHOLOGIST: [id number] 10/08/2022 12:03 EDT 10/08/2022 12:03 EDT TOM AGUERO MD Final Diagnosis Report for [facility] [place] RETAINED PRODUCTS OF CONCEPTION: - CHORIONIC [...] ald 10/08/2022 Tissue pathology report for: [facility], [address] [place] [id number]; ____ Print 10/11/2022 15:01 EDT Number: Date/Time: [facility] Department of Pathology [address] [place] [phone] Name: CAMERON HIGGINS : 2000 [facility] [id number] Number: Gender [facility] : n: Admit 22 years Attending ALEXIA BARRETT Age: Provider: Ordering ALEXIA BARRETT Provider: Consulti Surgical Pathology Report ng: ACCESSION: COLLECTED DATE/TIME: RECEIVED DATE/TIME: PATHOLOGIST: [id number] 10/08/2022 12:03 EDT 10/08/2022 12:03 EDT LACI KHAN, TOM Gross Description PATHOLOGY SERVICES PROVIDED BY [facility] (CLIA #[id number]) in cooperation with [facility] at [address] [place] [address] ( CLIA #[id number]) Codes CPT CODE: 35145 ____ Print 10/11/2022 15:01 EDT Number: Date/Time: Normal [facility] Comment on above: Performed By: #### [id number] #### [facility] Services [address] [place] [address] Visually Impaired Teacher: Tom Aguero MD URon 10-08-2022 , QUAL Negative Normal NEGATIVE [facility] Comment on above: Performed By: #### P REGU #### [facility] [address] [place] [address] Dr. Aleah Peres US PELVIS AND TRANSVAGon [...] 2022-10-06 14:55 Normal [facility] SURGICAL PATH REPORTon 09-16 SURGICAL PATH REPORT [facility] Department of Pathology [address] [place] [address] Name: ALEXANDRA HIGGINS : 2000 [employer] [id number] Number: Gender Female [facility] : n: Admit 22 years Attending TERESITA HODGE Age: Provider: Ordering TERESITA HODGE Provider: Consulti Surgical Pathology Report ng: ACCESSION: COLLECTED DATE/TIME: RECEIVED DATE/TIME: PATHOLOGIST: [id number] 09/15/2022 12:34 EST 09/15/2022 12:34 HENRY MOREIRA MD, LUIS ERAZO Final Diagnosis Report for [facility] [place] PRODUCTS OF CONCEPT[employer], DILATION AND CURETTAGE: - CHORIONIC VILLI ARE PRESENT; NO SIGNIFICANT ATYPIA IS OBSERVED. - BENIGN MATERIAL DECIDUA PRESENT. - NO PARTS ARE IDENTIFIED. LUIS MOREIRA PATHOLOGIST (Electronic Signature) Date Verified 09/16/2022 LN Clinical Data PRE-OP DIAGNOSIS: Not specified POST-OP DIAGNOSIS: Missed PROCEDURES: D and C with suction SPECIMEN: Products of conception / career center advisor Gross Description Labeled products of conception. Received in formalin in a suction sock are multiple irregular segments of medrano pink to red black soft tissue. The individual segments have a variable granular to partially smooth glistening membranous character. The specimen in total aggregate measures 12.5 x 7.5 x 4.0 cm. There are no grossly identifiable parts. Measurement And Verification Engineer sections are submitted in three cassettes. MP/ald 09/15/2022 ____ Print 09/16/2022 14:53 EST Number: Date/Time: [facility] Department of Pathology [address] [place] [phone] Name: ALEXANDRA HIGGINS : 2000 [employer] [id number] Number: Gender Female [facility] : n: Admit 22 years Attending TERESITA HODGE Age: Provider: Ordering TERESITA HODGE Provider: Consulti Surgical Pathology Report ng: ACCESSION: COLLECTED DATE/TIME: RECEIVED DATE/TIME: PATHOLOGIST: [id number] 09/15/2022 12:34 EST 09/15/2022 12:34 EST LILLIE KHAN, LUIS ERAZO Gross Description Tissue pathology report for: [facility], [address] [place] [address]; PATHOLOGY SERVICES PROVIDED BY [employer] [facility] (CLIA #[id number]) in cooperation with [facility] at [address] [place] [address] ( CLIA #[id number]) Codes CPT CODE: 12976 ____ [facility] 09/16/2022 14:53 EST Number: Date/Time: Normal [facility] Comment on above: Performed By: #### 9 [id number] #### [facility] Services [address] [place], [place] [id number] Visually Impaired Teacher: Tom Aguero MD CBC AUTO DIFFon 09-15-2022 BASO # 0.0 103/ul Normal 0.0-0.1 [facility] Comment on above: Performed By: #### C BC #### [facility] [address] [place] [address] Dr. Aleah Peres Basophils/100 WBC (Bld) 0.4 % Normal 0.2-2.0 [facility] Comment on above: Performed By: #### C BC #### [facility] [address] [place] [address] Dr. Aleah Peres EO # 0.1 103/ul Normal 0.0-0.[address] [facility] Comment on above: Performed By: #### C BC #### [facility] [address] [place] [address] Dr. Aleah Peres Eosinophils/100 WBC (Bld) 1.3 % Normal 0.9-7.0 [facility] Comment on above: Performed By: #### C BC #### [facility] [address] [place] [address] Dr. Aleah Peres Erythrocyte distribution width (RBC) [Ratio] 13.8 % Normal 11.0-15.0 [facility] Comment on above: Performed By: #### C BC #### [facility] [address] [place] [address] Dr. Aleah Peres Hematocrit (Bld) [Volume fraction] 35.5 % Critically low 36.0-48.0 [facility] Comment on above: Performed By: #### C BC #### [facility] [address] [place] [address] Dr. Aleah Peres Hemoglobin (Bld) [Mass/Vol] 11.6 g/dL Critically low 12.0-16.0 [facility] Comment on above: Performed By: #### C BC #### [facility] [address] [place] [address] Dr. Aleah Peres IG # 0.03 10e3/ul Normal 0.00-0.03 [facility] Comment on above: Performed By: #### C BC #### [facility] [address] [place] [address] Dr. Aleah Peres IG % 0.4 % Normal 0.0-0.5 [facility] Comment on above: Performed By: #### C BC #### [facility] [address] [place] [address] Dr. Aleah Peres LYMPH # 2.8 103/ul Normal 1.2-3.8 [facility] Comment on above: Performed By: #### C BC #### [facility] [address] [place] [address] Dr. Aleah Peres Lymphocytes/100 WBC (Bld) 32.9 % Normal 20.5-60.0 [facility] Comment on above: Performed By: #### C BC #### [facility] [address] [place] [address] Dr. Aleah Peres MANUAL DIFF REQ NO Normal [facility] Comment on above: Performed By: #### C BC #### [facility] [address] [place] [address] Dr. Aleah Peres MCH (RBC) [Entitic mass] 26.9 pg Normal 26.7-34.0 [facility] Comment on above: Performed By: #### C BC #### [facility] [address] [place] [address] Dr. Aleah Peres MCHC (RBC) [Mass/Vol] 32.7 g/dL Normal 29.9-35.2 [facility] Comment on above: Performed By: #### C BC #### [facility] [address] [place] [address] Dr. Aleah Peres MCV (RBC) [Entitic vol] 82.4 fL Normal 81.0-99.0 [facility] Comment on above: Performed By: #### C BC #### [facility] [address] [place] [address] Dr. Aleah Peres MONO # 0.7 103/ul Normal 0.3-0.8 [facility] Comment on above: Performed By: #### C BC #### [facility] [address] [place] [address] Dr. Aleah Peres Monocytes/100 WBC (Bld) 8.6 % Normal 1.7-12.0 [facility] Comment on above: Performed By: #### C BC #### [facility] [address] [place] [address] Dr. Aelah Peres NEUT # 4.8 103/ul Normal 1.4-6.5 [facility] Comment on above: Performed By: #### C BC #### [facility] [address] [place] [address] Dr. Aleah Peres Neutrophils/100 WBC (Bld) 56.4 % Normal 43.0-75.0 [facility] Comment on above: Performed By: #### C BC #### [facility] [address] [place] [address] Dr. Aleah Peres Platelet mean volume (Bld) [Entitic vol] 9.9 fL Normal 9.5-13.5 [facility] Comment on above: Performed By: #### C BC #### [facility] [address] [place] [address] Dr. Aleah Peres PLT 316 103/ul Normal 150-450 [facility] Comment on above: Performed By: #### C BC #### [facility] [address] [place] [address] Dr. Aleah Peres RBC 4.31 106/ul Normal 4.20-5.40 [facility] Comment on above: Performed By: #### C BC #### [facility] [address] [place] [address] Dr. Aleah Peres WBC 8.4 103/ul Normal 4.0-11.[address] [facility] Comment on above: Performed By: #### C BC #### [facility] [address] [place] [address] Dr. Aleah Peres PREG QUANT HCGon 09-15-2022 HCG QUANT 03267 mIU/mL Normal [facility] Comment on above: Performed By: #### P REGQNT #### [facility] [address] [place] [address] Dr. Aleah Peres HCG RANGE SEE BELOW Normal [facility] Comment on above: Result Comment: 5-50 0.2-1 WEEK 50-500 1-2 WEEKS 100-5,000 2-3 WEEKS 500-10,000 3-4 WEEKS 1,000-50,000 4-5 WEEKS 10,000-100,000 5-6 WEEKS 15,000-200,000 6-8 WEEKS 10,000-100,000 2-3 MONTHS Performed By: #### P REGQNT #### [facility] [address] [place], [place] [address] Dr. Aleah Peres TYPE AND SCREENon 09-15-2022 TYPE AND SCREEN Negative Normal [facility] Comment on above: Performed By: #### P REGQNT #### [facility] [address], [place] [address] Dr. Aleah Peres US PELVISon 09-15-2022 US PELVIS EXAMINATION: US PELVIS HISTORY: Spontaneous COMPARISON: No relevant comparison available. TECHNIQUE: Transabdominal and transvaginal sonographic examination. FINDINGS: UTERUS: Small amount of fluid within endometrial cavity. No visible retained products of conception. IMPRESSION: 1. No appreciable retained products of conception within uterine cavity. Electronically authenticated by: ASHLEY NOEL Date: 2022-09-15 15:42 Normal [facility] US PREG TVon 09-13-2022 US PREG [...] not identified. Normal The [facility] CBC AUTO DIFFon 08-16-2022 BASO # 0.0 103/ul Normal 0.0-0.1 [facility] Comment on above: Performed By: #### C BC #### [facility] [address] [place] [address] Dr. Aleah Peres Basophils/100 WBC (Bld) 0.4 % Normal 0.2-2.0 [facility] Comment on above: Performed By: #### C BC #### [facility] [address] [place] [address] Dr. Aleah Peres EO # 0.1 103/ul Normal 0.0-0.7 [facility] Comment on above: Performed By: #### C BC #### [facility] [address] [place] [address] Dr. Aleah Peres Eosinophils/100 WBC (Bld) 1.4 % Normal 0.9-7.0 [facility] Comment on above: Performed By: #### C BC #### [facility] [address] [place] [address] Dr. Aleah Peres Erythrocyte distribution width (RBC) [Ratio] 13.6 % Normal 11.0-15.0 [facility] Comment on above: Performed By: #### C BC #### [facility] [address] [place] [address] Dr. Aleah Peres Hematocrit (Bld) [Volume fraction] 32.4 % Critically low 36.0-48.0 [facility] Comment on above: Performed By: #### C BC #### [facility] [address] [place] [address] Dr. Aleah Peres Hemoglobin (Bld) [Mass/Vol] 11.2 g/dL Critically low 12.0-16.0 [facility] Comment on above: Performed By: #### C BC #### [facility] [address] [place] [address] Dr. Aleah Peres IG # 0.02 10e3/ul Normal 0.00-0.03 [facility] Comment on above: Performed By: #### C BC #### [facility] [address] [place] [address] Dr. Aleah Peres IG % 0.3 % Normal 0.0-0.5 [facility] Comment on above: Performed By: #### C BC #### [facility] [address] [place] [address] Dr. Aleah Peres LYMPH # 2.4 103/ul Normal 1.2-3.8 [facility] Comment on above: Performed By: #### C BC #### [facility] [address] [place] [address] Dr. Aleah Peres Lymphocytes/100 WBC (Bld) 32.3 % Normal 20.5-60.0 [facility] Comment on above: Performed By: #### C BC #### [facility] [address] [place] [address] Dr. Aleah Peres MANUAL DIFF REQ NO Normal [facility] Comment on above: Performed By: #### C BC #### [facility] [address] [place] [address] Dr. Aleah Peres MCH (RBC) [Entitic mass] 26.9 pg Normal 26.7-34.0 [facility] Comment on above: Performed By: #### C BC #### [facility] [address] [place] [address] Dr. Aleah Peres MCHC (RBC) [Mass/Vol] 34.6 g/dL Normal 29.9-35.2 [facility] Comment on above: Performed By: #### C BC #### [facility] [address] [place] [address] Dr. Aleah Peres MCV (RBC) [Entitic vol] 77.9 fL Critically low 81.0-99.0 [facility] Comment on above: Performed By: #### C BC #### [facility] [address] [place] [address] Dr. Aleah Peres MONO # 0.7 103/ul Normal 0.3-0.8 [facility] Comment on above: Performed By: #### C BC #### [facility] [address] [place] [address] Dr. Aleah Peres Monocytes/100 WBC (Bld) 9.1 % Normal 1.7-12.0 [facility] Comment on above: Performed By: #### C BC #### [facility] [address] [place] [address] Dr. Aleah Peres NEUT # 4.1 103/ul Normal 1.4-6.5 [facility] Comment on above: Performed By: #### C BC #### [facility] [address] [place] [address] [address] Aleah Peres Neutrophils/100 WBC (Bld) 56.5 % Normal 43.0-75.0 [facility] Comment on above: Performed By: #### C BC #### [facility] [address] [place] [address] Dr. Aleah Peres Platelet mean volume (Bld) [Entitic vol] 9.4 fL Critically low 9.5-13.5 [facility] Comment on above: Performed By: #### C BC #### [facility] [address] [place] [address] Dr. Aleah Peres PLT 303 103/ul Normal 150-450 [facility] Comment on above: Performed By: #### C BC #### [facility] [address] [place] [address] Dr. Aleah Peres RBC 4.16 106/ul Critically low 4.20-5.40 [facility] Comment on above: Performed By: #### C BC #### [facility] [address] [place] [address] Dr. Aleah Peres WBC 7.3 103/ul Normal 4.0-11.0 [facility] Comment on above: Performed By: #### C BC #### [facility] [address] [place] [address] Dr. Aleah Peres ER URINE PROFILEon 3 Bilirubin Ql (U) Negative Normal NEGATIVE [facility] Comment on above: Performed By: #### E RUR #### [facility] [address] [place] [address] Dr. Aleah Peres Clarity (U) CLEAR Normal CLEAR [facility] Comment on above: Performed By: #### E RUR #### [facility] [address] [place] [address] Dr. Aleah Peres Color (U) YELLOW Normal YELLOW [facility] Comment on above: Performed By: #### E RUR #### [facility] [address] [place] [address] Dr. Aleah OMALLEY A micrscopic examination will be performed if indicated. Normal [facility] Comment on above: Performed By: #### E RUR #### [facility] [address] [place] [address] Dr. Aleah Peres Glucose Ql (U) Negative Normal NEGATIVE [facility] Comment on above: Performed By: #### E RUR #### [facility] [address] [place] [address] Dr. Aleah Peres Hemoglobin Ql (U) Negative Normal NEGATIVE [facility] Comment on above: Performed By: #### E RUR #### [facility] [address] [place] [address] Dr. Aleah Peres Ketones Ql (U) Negative Normal NEGATIVE [facility] Comment on above: Performed By: #### E RUR #### [facility] [address] [place] [address] Dr. Aleah Peres LEUKOCYTES Negative Normal NEGATIVE [facility] Comment on above: Performed By: #### E RUR #### [facility] [address] [place] [address] Dr. Aleah Peres Nitrite Ql (U) Negative Normal NEGATIVE [facility] Comment on above: Performed By: #### E RUR #### [facility] [address] [place] [address] Dr. Aleah Peres pH (U) 6.0 [pH] Normal 5-[address] [facility] Comment on above: Performed By: #### E RUR #### [facility] [address] [place] [address] Dr. Aleah Peres SPEC GRAVITY 1.020 Normal 1.005-<=1.025 [facility] Comment on above: Performed By: #### E RUR #### [facility] [address] [place] [address] Dr. Aleah Peres UA PROTEIN Negative Normal NEGATIVE/ TRACE [facility] Comment on above: Performed By: #### E RUR #### [facility] [address] [place] [address] Dr. Aleah Peres UR MICRO IND NOT INDICATED Normal [facility] Comment on above: Performed By: #### E RUR #### [facility] [address] [place] [address] Dr. Aleah Peres Urobilinogen Qn (U) 0.2 {Edmund'U}/dL Normal 0.2 - 1. 0 [facility] Comment on above: Performed By: #### E RUR #### [facility] [address] [place] [address] Dr. Aleah Peres PROF 14(COMP METB)on 023 Albumin [Mass/Vol] 3.0 g/dL Critically low 3.4-5.0 [facility] Comment on above: Performed By: #### C MP #### [facility] [address] [place] [address] Dr. Aleah Peres Albumin/Globulin [Mass ratio] 0.8 {ratio} Normal [facility] Comment on above: Performed By: #### C MP #### [facility] [address] [place] [address] Dr. Aleah Peres ALP [Catalytic activity/Vol] 52 U/L Normal 46-116 [facility] Comment on above: Performed By: #### C MP #### [facility] [address] [place] [address] Dr. Aleah Peres ALT [Catalytic activity/Vol] 15 U/L Normal 14-59 [facility] Comment on above: Performed By: #### C MP #### [facility] [address] [place] [address] Dr. Aleah Peres Anion gap [Moles/Vol] 10.2 mmol/L Normal [facility] Comment on above: Performed By: #### C MP #### [facility] [address] [place] [address] Dr. Aleah Peres AST [Catalytic activity/Vol] 13 U/L Critically low 15-37 [facility] Comment on above: Performed By: #### C MP #### [facility] [address] [place] [address] Dr. Aleah Peres Bilirubin [Mass/Vol] 0.2 mg/dL Normal 0.2-1.0 [facility] Comment on above: Performed By: #### C MP #### [facility] [address] [place] [address] Dr. Aleah Peres Calcium [Mass/Vol] 9.1 mg/dL Normal 8.5-10.1 [facility] Comment on above: Performed By: #### C MP #### [facility] [address] [place] [address] Dr. Aleah Peres Chloride [Moles/Vol] 100 mmol/L Normal 98-107 [facility] Comment on above: Performed By: #### C MP #### [facility] [address] [place] [address] Dr. Aleah Peres CO2 [Moles/Vol] 28.8 mmol/L Normal 21.0-32.0 [facility] Comment on above: Performed By: #### C MP #### [facility] [address] [place] [address] Dr. Aleah Peres Creatinine [Mass/Vol] 0.56 mg/dL Normal 0.55-1.02 [facility] Comment on above: Performed By: #### C MP #### [facility] [address] [place] [address] Dr. Aleah Peres EGFR-AF GERMAN >60 Normal >=60 [facility] Comment on above: Performed By: #### C MP #### [facility] [address] [place] [address] Dr. Aleah Peres EGFR-NON AF GERMAN >60 Normal >=60 [facility] Comment on above: Performed By: #### C MP #### [facility] [address] [place] [address] Dr. Aleah Peres Globulin (S) [Mass/Vol] 3.9 g/dL Normal [facility] Comment on above: Performed By: #### C MP #### [facility] [address] [place] [address] [address] Aleah Peres Glucose [Mass/Vol] 90 mg/dL Normal 74-106 [facility] Comment on above: Performed By: #### C MP #### [facility] [address] [place] [address] [address] Aleah Peres Potassium [Moles/Vol] 4.0 mmol/L Normal 3.5-5.1 [facility] Comment on above: Performed By: #### C MP #### [facility] [address] [place] [address] [address] Aleah Peres Protein [Mass/Vol] 6.9 g/dL Normal 6.4-8.2 [facility] Comment on above: Performed By: #### C MP #### [facility] [address] [place] [address] [address] Aleah Peres Sodium [Moles/Vol] 135 mmol/L Critically low 136-145 [facility] Comment on above: Performed By: #### C MP #### [facility] [address] [place] [address] [address] Aleah Peres Urea nitrogen [Mass/Vol] 4.0 mg/dL Critically low 7.0-18.0 [facility] Comment on above: Performed By: #### C MP #### [facility] [address] [place] [address] [address] Aleah Peres Urea nitrogen/Creatinine [Mass ratio] 7.1 mg/mg [facility] Comment on above: Performed By: #### C MP #### [facility] [address] [place] [address] [address] Aleah Peres PAP ACOG PANEL 2: 21 to 29on 08-02-2022 . . Normal [facility] Comment on above: Result Comment: Perf ormed at: WB Performed By: #### [id number] #### [facility] [address] [place] [address] [address] Aleah Peres Age Gdln ACOG Testing - [facility] Comment on above: Performed By: #### [id number] #### [facility] [address] [place] [address] Dr. Aleah Peres DIAGNOSIS: Comment Abnormal [facility] Comment on above: Result Comment: EPIT HELIAL CELL ABNORMALITY. LOW GRADE SQUAMOUS INTRAEPITHELIAL LESION (LSIL). Performed at: WB Performed By: #### [id number] #### [facility] [address] [place] [address] Dr. Aleah Peres Electronically signed by: Comment Normal [facility] Comment on above: Result Comment: Amena Arciniega MD, Pathologist Performed at: WB Performed By: #### [id number] #### [facility] [address] [place] [address] Dr. Aleah Peres Methodology: Comment Normal [facility] Comment on above: Result Comment: This liquid based ThinPrep(R) pap test was screened with the use of an image guided system. Performed at: WB Performed By: #### [id number] #### [facility] [address] [place] [address] Dr. Aleah Peres Note: Comment Normal [facility] Comment on above: Result Comment: The Pap smear is a screening test designed to aid in the detection of premalignant and malignant conditions of the uterine cervix. It is not a diagnostic procedure and should not be used as the sole means of detecting cervical cancer. Both false-positive and false-negative reports do occur. . Performed at: WB Performed By: #### [id number] #### [facility] [address] [place] [address] Dr. Aleah Peres Pathologist Provided ICD10 Comment Normal [facility] Comment on above: Result Comment: [id number] Performed at: WB Performed By: #### [id number] #### [facility] [address] [place] [address] Dr. Aleah Peres Performed by: Comment Normal [facility] Comment on above: Result Comment: Caitlyn Crenshaw, [employer] Operator (ASCP) Performed at: BA Performed By: #### [id number] #### [facility] [address] [place] [address] Dr. Aleah Peres Recommendation: Comment Abnormal [facility] Comment on above: Result Comment: Sugg est follow up as clinically appropriate. Performed at: WB Performed By: #### [id number] #### [facility] [address] [place] [address] [address] Aleah Peres Reflex Criteria: Comment Normal [facility] Comment on above: Result Comment: The HPV DNA reflex criteria were not met with this specimen result therefore, no HPV testing was performed. . Performed at: WB Performed By: #### [id number] #### [facility] [address] [address] [address] Aleah Peres Specimen adequacy: Comment Normal [facility] Comment on above: Result Comment: Sati sfactory for evaluation. Endocervical and/or squamous metaplastic cells (endocervical component) are present. Performed at: WB Performed By: #### [id number] #### [facility] [address] [address] [address] Aleah Peres Covid-19 PCR ([facility])on 05-25 SARS-CoV-2 (COVID-19) RNA MARY ELLEN+probe Ql (Unsp spec) Not detected Normal NOT DETECTED [facility] Comment on above: Result Comment: When [...] for this test is supported by the [employer] Operator of Health and Human Service's declaration [...] #### P REGQNT #### [facility] [address] [address] [address] Aleah Peres Vital Signs Date Time Vital Sign Value Performing Clinician Nelly smith 08-14-2024 12:05-0500 Body mass index (BMI) [Ratio] 31.91 kg/m2 Teresita Ayesha DO Work Phone: [facility] 08-14-2024 12:05-0500 Body weight 83.01 kg Teresita Ayesha DO Work Phone: [facility] 08-14-2024 12:05-0500 Diastolic blood pressure 60 mm[Hg] Teresita Ayesha DO Work Phone: [facility] 08-14-2024 12:05-0500 Systolic blood pressure 110 mm[Hg] Teresita Ayesha DO Work Phone: [facility] 07-16-2024 10:25-0500 Body mass index (BMI) [Ratio] 30.71 kg/m2 Amy Dobbins PA Work Phone: [facility] 07-16-2024 10:25-0500 Body weight 79.89 kg Amy Dobbins PA Work Phone: [facility] 07-16-2024 10:25-0500 Diastolic blood pressure 70 mm[Hg] Mu PA Work Phone: [facility] 07-16-2024 10:25-0500 Systolic blood pressure 120 mm[Hg] Amy Dobbins PA Work Phone: [facility] 06-07-2024 13:39-0500 Body mass index (BMI) [Ratio] 31.35 kg/m2 [facility] Nurse [facility] 06-07-2024 13:39-0500 Body weight 81.56 kg [facility] Nurse [facility] 06-07-2024 13:39-0500 Diastolic blood pressure 70 mm[Hg] [facility] Nurse [facility] 06-07-2024 13:39-0500 Systolic blood pressure 118 mm[Hg] [facility] Nurse [facility] 05-31-2024 09:40-0500 Body mass index (BMI) [Ratio] 30.86 kg/m2 Amy Dobbins PA Work Phone: [facility] 05-31-2024 09:40-0500 Body weight 80.29 kg Amy VILLATORO Work Phone: [facility] 05-31-2024 09:40-0500 Diastolic blood pressure 72 mm[Hg] Amy VILLATORO Work Phone: [facility] 05-31-2024 09:40-0500 Systolic blood pressure 118 mm[Hg] Amy VILLATORO Work Phone: [facility] 08-31-2023 13:43-0500 Body mass index (BMI) [Ratio] 33.2 kg/m2 Teresita Ayesha DO Work Phone: [facility] 08-31-2023 13:43-0500 Body weight 86.36 kg Teresita Ayesha DO Work Phone: [facility] 08-31-2023 13:43-0500 Diastolic blood pressure 70 mm[Hg] Teresita Ayesha DO Work Phone: [facility] 08-31-2023 13:43-0500 Systolic blood pressure 114 mm[Hg] Teresita Ayesha DO Work Phone: [facility] Healthcare Encounters Encounter Date Encounter Type Care Provider Facility Start: 08-30-2024 End: 09-01-2024 Clinisync Result Encounter Teresita Ayseha DO Work Phone: [facility] External Department Unsolicited Start: 08-30-2024 End: 09-01-2024 Clinisync Result Encounter Teresita Ayesha DO Work Phone: [facility] External Department Unsolicited Start: 08-28-2024 End: 08-28-2024 ambulatory TERESITA AYESHA Not Available Start: 08-14-2024 End: 08-14-2024 Bamboo flowsheet Teresita Ayesha DO Work Phone: [facility] Start: 08-14-2024 End: 08-14-2024 Bamboo flowsheet Teresita Ayesha DO Work Phone: [facility] Start: 08-14-2024 End: 08-14-2024 Office outpatient visit 15 minutes Teresita Ayesha DO Work Phone: [facility] Comment on above: 18 weeks gestation o f ; Second trimester ; Screening, , for anatomic survey; Other headache syndrome; Constipation, unspecified constipation type Start: 08-14-2024 End: 08-14-2024 ambulatory TERESITA AYESHA Not Available Start: 08-01-2024 End: 08-01-2024 ambulatory TERESITA AYESHA Not Available Start: 07-16-2024 End: 07-16-2024 Bamboo flowsheet Amy VILLATORO Work Phone: [facility] Start: 07-16-2024 End: 07-24-2024 Bamboo flowsheet Amy VILLATORO Work Phone: [facility] Start: 07-16-2024 End: 07-24-2024 Clinisync Result Encounter Amy VILLATORO Work Phone: [facility] External Department Unsolicited Start: 07-16-2024 End: 07-16-2024 ambulatory AMY DOBBINS Not Available Start: 07-16-2024 End: 07-16-2024 Patient encounter procedure Amy VILLATORO Work Phone: [facility] Start: 07-16-2024 End: 07-16-2024 Periodic preventive med est patient 18-39 yrs Amy VILLATORO Work Phone: [facility] Comment on above: Screening, , for [...] 06-07-2024 Office outpatient visit 5 minutes [facility] Ayesha Nurse [facility] Comment [...] visit 15 minutes Amy VILLATORO Work Phone: [facility] Comment on above: 8 weeks gestation of ; Cramping affecting , antepartum Start: 03-06-2024 End: 03-06-2024 ambulatory PAM MENJIVAR Not Available Start: 03-06-2024 End: 03-06-2024 Patient encounter procedure Navneet Rodriguez DO Work Phone: [facility] Comment on above: Encounter for pre-em ployment drug testing (Primary Dx) Start: 11-30-2023 End: 11-30-2023 ambulatory AMY DOBBINS Not Available Start: 10-12-2023 End: 10-12-2023 ambulatory TERESITA AYESHA Not Available Start: 09-28-2023 End: 09-28-2023 ambulatory TERESITA AYESHA Not Available Start: 09-14-2023 End: 09-14-2023 ambulatory MU Not Available Start: 08-31-2023 End: 08-31-2023 Office outpatient visit 15 minutes Teresita Ayesha DO Work Phone: [facility] Comment on above: Third trimester preg hanh Start: 08-31-2023 End: 08-31-2023 ambulatory TERESITA AYESHA Not Available Start: 11-10-2022 End: 11-10-[address] ALEXIA BARRETT . Facility:[facility] Start: 10-22-2022 End: 10-23-2022 ambulatory NATASHA CAMARA . Facility:[facility] Start: 10-08-2022 End: 10-09-2022 ambulatory ALEXIA BARRETT Facility:[facility] Start: 10-08-2022 End: 10-08-[address] ALEXIA BARRETT . Facility: Start: 10-06-2022 End: 10-07-[address] ALEXIA BARRETT . Facility: Start: 09-17-2022 Encounter for other preprocedural examination DR TERESITA HODGE . [facility] Start: 09-15-2022 End: 09-16-2022 ambulatory TERESITA [...] Date Procedure Procedure Detail Performing Clinician Start: 08-30-2024 AFP, SERUM, OPEN SPI NA BIFIDA Teresita Ayesha DO Work Phone: Start: 08-14-2024 Urnls dip stick/tabl et rgnt non-auto w/o micrscp Teresita Ayesha DO Work Phone: Start: 07-16-2024 Urnls dip stick/tabl et rgnt non-auto w/o micrscp Amy VILLTAORO Work Phone: Start: 07-16-2024 IGP,APTIMA HPV,AGE GDLN Amy VILLATORO Work Phone: Start: 06-14-2024 BOX TEST Teresita Fazi o DO Work Phone: Start: 06-07-2024 Urnls dip stick/tabl et rgnt non-auto w/o micrscp Teresita Ayesha DO Work Phone: Start: 08-31-2023 Urnls dip stick/tabl et rgnt non-auto w/o micrscp Teresita Ayesha DO Work Phone: Start: 11-10-2022 Cytp cerv/vag auto t hin layer [facility] Work [facility]: Plan of Treatment Date Care Activity Detail Author Start: 09-12-2024 End: 09-12-2024 Patient encounter procedure 09/12/2024 10:30 AM EST Routine [facility] [address] [place] [id number] Amy Dobbins PA [address] [place] [address] [facility] Start: 09-11-2024 End: 09-11-2024 Patient encounter procedure 09/11/2024 10:20 AM EST Routine [facility] [address] [place] [id number] Amy Dobbins PA [address] [place] [address] [facility] Start: 09-11-2024 End: 09-11-2024 Professional / ancillary services management 09/11/2024 10:00 AM EST Ancillary Procedure [facility] [address] [place] [id number] [facility] Start: 08-28-2024 End: 08-28-2024 Professional / ancillary services management 08/28/2024 1:00 PM EST Ancillary Procedure [facility] [address] [place] [id number] [facility] Start: 08-14-2024 End: 10-12-2024 [...] EST Ancillary Procedure [facility] [address] [place] [id number] [facility] Start: 07-16-2024 End: 08-16-2024 [...] PM EST Routine [facility] [address] [place] [id number] Teresita Hodge DO [address] [place] [address] [facility] Start: 06-07-2024 End: 06-07-2025 [...] first trimester Expected: 06/07/2024 (Approximate), Expires: 06/07/2025 [facility] Comment on above: Expected: 06/07/2024 (Approximate), Expires: 06/07/2025 Start: 06-07-2024 End: 06-07-2024 ambulatory 06/07/2024 1:30 PM EST Initial [facility] [address] [place] [phone] [facility] Start: 06-07-2024 End: 06-07-2024 Professional / ancillary services management 06/07/2024 1:00 PM EST Ancillary Procedure [facility] [address] [place] [address] [facility] Start: 05-21-2024 End: 05-21-2024 Patient encounter procedure 05/21/2024 11:00 AM EDT Office Visit [facility] [address] [place] [place] [id number] Amy Dobbins PA [address] [place], [place] [id number] [facility] Start: 09-14-2023 End: 09-14-2023 Patient encounter procedure 09/14/2023 3:50 PM EST Routine [facility] [address] [place] [place] [phone] Amy Dobbins PA [address] [place] [address] [facility] Bacteria identified in Urine by Culture Urine culture Microbiology Routine Missed menses Ordered: 06/07/2024 [facility] Comment on above: Ordered: 06/07/2024 CBC W Auto Differential panel - Blood CBC and differential Lab Routine Missed menses , unspecified gestational age Ordered: 06/07/2024 [facility] Comment on above: Ordered: 06/07/2024 CHLAMYDIA TRACHOMATI S (GENITO/STI) CHLAMYDIA TRACHOMATIS (GENITO/STI) Lab Routine Second trimester Ordered: 07/16/2024 [facility] Comment on above: Ordered: 07/16/2024 Cytology Cervical or vaginal smear or scraping study Pap Smear Pathology and Cytology Routine Well woman exam with routine gynecological exam 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 Second trimester Ordered: 07/16/2024 [facility] Work Phone: Comment on above: Ordered: 07/16/2024 Hemoglobin A1c/Hemoglobin.total in Blood Hemoglobin A1c Lab Routine Missed menses , unspecified gestational age Ordered: 06/07/2024 [facility] Comment on above: Ordered: 06/07/2024 Hepatitis B virus surface Ag [Presence] in Serum or Plasma by Immunoassay Hepatitis B surface antigen Lab Routine Missed menses , unspecified gestational age Ordered: 06/07/2024 [facility] Comment on above: Ordered: 06/07/2024 Hepatitis C virus Ab [Presence] in Serum or Plasma by Immunoassay Hepatitis C antibody Lab Routine Missed menses , unspecified gestational age Ordered: 06/07/2024 [facility] Comment on above: Ordered: 06/07/2024 HIV-1/HIV-2 antigen/antibody combination immunoassay HIV-1 and HIV-2 antibodies Lab Routine Missed menses , unspecified gestational age Ordered: 06/07/2024 [facility] Comment on above: Ordered: 06/07/2024 Neisseria gonorrhoea e DNA [Presence] in Unspecified specimen by MARY ELLEN with probe detection Neisseria gonorrhea DNA probe, direct Lab Routine Second trimester Ordered: 07/16/2024 [facility] Comment on above: Ordered: 07/16/2024 Reagin Ab [Presence] in Serum by RPR RPR Lab Routine Missed menses , unspecified gestational age Ordered: 06/07/2024 [facility] Comment on above: Ordered: 06/07/2024 Rubella antibody, IgG Rubella an tibody, IgG Lab Routine Missed menses , unspecified gestational age Ordered: 06/07/2024 [facility] Comment on above: Ordered: 06/07/2024 SURESWAB(R) ADVANCED VAGINITIS PLUS, TMA SURESWAB(R) ADVANCED VAGINITIS PLUS, TMA Pathology and Cytology Routine Second trimester Ordered: 07/16/2024 [facility] Comment on above: Ordered: 07/16/2024 Payers Date Payer Category Payer Medicaid [id number] 2022 Medicaid [id number] 1999 Unknown [id number] 2.16.84 0.1.495862.3.579.2.593 1999 Unknown [id number] 2.16.84 0.1.876717.3.579.2.593 1999 Unknown [id number] 2.16.84 0.1.391342.3.579.2.593 1999 Unknown [id number] 2.16.84 0.1.862524.3.579.2.593 1999 Unknown [id number] 2.16.84 0.1.037110.3.579.2.593 1999 Unknown [id number] 2.16.84 0.1.406035.3.579.2.593 1999 Unknown [id number] 2.16.84 0.1.908671.3.579.2.593 1999 Unknown [id number] 2.16.84 0.1.311360.3.579.2.593 1999 Unknown [id number] 2.16.84 0.1.300077.3.579.2.593 1999 Unknown [id number] 2.16.84 0.1.441129.3.579.2.593 1999 Unknown [id number] 2.16.84 0.1.700950.3.579.2.1259 1999 Unknown [id number] 2.16.84 0.1.307694.3.579.2.1259 1999 Unknown [id number] 2.16.84 0.1.078345.3.579.2.1259 1999 Unknown [id number] 2.16.84 0.1.097091.3.579.2.1259 1999 Unknown [id number] 2.16.84 0.1.192778.3.579.2.1259 1999 Unknown [id number] 2.16.84 0.1.963568.3.579.2.1259 1999 Unknown [id number] 2.16.84 0.1.429962.3.579.2.1259 1999 Unknown [id number] 2.16.84 0.1.684005.3.579.2.1259 1999 Unknown [id number] 2.16.84 0.1.687296.3.579.2.1259 1999 Unknown [id number] 2.16.84 0.1.330596.3.579.2.1259 1999 Unknown [id number] 2.16.84 0.1.251018.3.579.2.1259 1999 Unknown [id number] 2.16.84 0.1.991209.3.579.2.1259 1959 Unknown [id number] 1959 Unknown [id number] Social History Date Type Detail Facility Start: 04-18-2023 Tobacco smoking stat [facility] Never smoked tobacco [facility] Start: 08-31-2023 End: 07-16-2024 Alcohol intake Lifetime non-drinker (finding) [facility] Start: 06-13-2023 End: 08-31-2023 History of Social function [facility] Start: 06-13-2023 End: 08-31-2023 Tobacco use panel [facility] Start: 04-18-2023 Alcohol Comment caffeine: none [facility] Start: 02-17-2023 [facility] Start: 2000 Sex Assigned At Not on file [facility] Clinical Notes 09-15-2022 to 08-14-2024 Sharon Hare, [facility]ON - 08/14/2024 10:50 AM SHAUNA Hammonds - 07/16/2024 9:50 AM Juaquin Perry [facility] - 06/07/2024 1:30 PM SHAUNA Hammonds - 05/31/2024 9:10 AM Chloe Hare [facility] - 08/31/2023 1:40 PM EST Note Date [...] nursing note reviewed. Exam conducted with a flight director present. Vitals: Estimated body mass index is [...] Hodge DO documented in this encounter [facility] 07-16-2024 History of Presen t illness Narrative [...] nursing note reviewed. Exam conducted with a flight director present. Vitals: Estimated body mass index is [...] SHAUNA Rizvi documented in this encounter [facility] 06-07-2024 History of Presen t illness Narrative [...] or undercooked meat, and stay away from [facility]. Patient has also been advised to not [...] Perry LPN documented in this encounter [facility] 05-31-2024 History of Presen t illness Narrative [...] SHAUNA Rizvi documented in this encounter [facility] 03-06-2024 History of Presen t illness Narrative Pt presents today for a pre-employment drug screen, BAT, Physical Exam, Audiogram, and PFT for [place]. Pt verified by photo ID. documented in this encounter [facility] 08-31-2023 History of Presen t illness Narrative [...] nursing note reviewed. Exam conducted with a flight director present. Vitals: Estimated body mass index is [...] Hodge DO documented in this encounter [facility] 09-15-2022 Note EXAMINATION: US PREG TV HISTORY: [...] authenticated by: ASHLEY NOEL Date: 2022-09-15 07:41 [facility] 09-15-2022 Note OPERATIVE NOTE OPERATION DATE: 09/15/2022 PROCEDURE: Suction D AND C. PREOPERATIVE DIAGNOSIS: First trimester missed at 10 weeks. POSTOPERATIVE DIAGNOSIS: First trimester missed at 10 weeks. ANESTHESIA: General. SURGEON: Teresita Hodge D.O. HEALTH SPECIALIST: None. FINDINGS: Products of conception. SPECIMEN: Products [...] products of conception were removed using an 9-Mongolian suction curette. Excellent hemostasis was noted. The patient tolerated the procedure well. Sponge, lap, and needle counts were correct x 2. All instruments were then removed from the patient's vagina. The patient was taken to the Recovery Room in stable condition. ?? [facility] Evaluation note Diagnosis Third trimester state, [...] content) DATE CREATED AUTHOR 10/12/2022 [facility] DATE CREATED AUTHOR AUTHOR'S ORGANIZ ATION 12/08/2022 [facility] DATE CREATED AUTHOR AUTHOR'S ORGANIZ ATION 08/30/2024 [facility] EPIC Reason for Visit [...] ON THE PRIMARY CLINICAL RECORDS. [facility] [employer] [facility] provides no warranty or guarantee of the accuracy or completeness of information in this document.
--- NOTE | 2024-09-06 04:31 | ED_ITS ---
HPI - Nausea/Vomiting/Diarrhea General Chief complaint: Nausea/Vomiting/Diarrhea Stated complaint: NAUSEA, VOMITING Time Seen by Provider: 09/06/24 04:07 Source: patient Mode of arrival: walk-in History of Present Illness HPI Narrative: This 24-year-old female G2, P1 who is 22 weeks presents for evaluation of nausea vomiting and diarrhea. The patient states she started having some diarrhea last night and went to work. She has been having episodes of vomiting all throughout the night starting around 10 PM. She last vomited just before leaving work and coming to the emergency department. Her daughter had similar symptoms last week. She denies any fever. She has no chest pain or shortness of breath. She states that she has been vomiting and having dry heaves with some mild blood streak in her vomitus. She can feel her baby moving. After getting the emergency department she went to the bathroom and her urine was quite dark. Her [employer] is Dr. Hodge. Related Data Home Medications ?Medication ?Instructions ?Recorded ?Confirmed DAILY 04/08/23 Allergies Allergy/AdvReac Type Severity Reaction Status Date / Time grass pollen Allergy Unknown Verified 09/06/24 04:07 Review of Systems ROS Status of ROS 10 or more systems reviewed and unremark able except as noted in history and below [facility] Medical History (Updated 09/06/24 @ 05:50 by Carli Browning MD) Asthma ?J45.909 - Unspecified asthma, uncomplicated (ICD-10) Surgical History (Updated 10/19/23 @ 03:31 by Dariusz James) H/O dilation and curettage ?Z98.890 - Other specified postprocedural states (ICD-10) Social History Smoking status: Current every day smoker Little interest or pleasure in doing things: not at all Feeling down, depressed, or hopeless: not at all Exam Narrative Exam Narrative: Vital signs and Nursing Notes reviewed: Patient is afebrile with a normal pulse, normal blood pressure, she is not hypoxic with pulse ox of 97% on room air General: Awake, alert, oriented, no acute distress, lying comfortably on the stretcher, ambulatory back and forth to the bathroom without difficulty HEENT: Normocephalic atraumatic, mucous membranes are slightly dry Neck: Supple, no meningeal signs, no anterior or posterior cervical lymphadenopathy Chest: Lungs are clear to auscultation with good air entry, there is no wheezing rhonchi or rales appreciated no accessory muscle use, patient is speaking in com plete sentences-no chest wall tenderness to palpation CVS: Regular rate and rhythm S1-S2, no murmurs rubs or gallops, pulses are brisk and equal bilaterally ABD: Soft, nondistended, gravid, hyperactive bowel sounds appreciated, no reproducible tenderness Extremities: Moving all extremities, no lower extremity tenderness or swelling noted, negative Homans' sign, pulses are brisk and equal bilaterally Skin: Normal in appearance without rash,pallor, petechiae or purpura Neuro: No focal deficits Constitutional Vital Signs, click to edit/add: Last Vital Signs Temp 98.1 F 09/06/24 04:03 Pulse 97 H 09/06/24 04:03 Resp 18 09/06/24 04:03 BP 118/64 09/06/24 04:03 Pulse Ox 97 09/06/24 04:03 O2 Del Method Room Air 09/06/24 04:03 Course Vital Signs Vital signs: Vital Signs Temperature 98.1 F 09/06/24 04:03 Pulse Rate 97 H 09/06/24 04:03 Respiratory Rate 18 09/06/24 04:03 Blood Pressure 118/64 09/06/24 04:03 Pulse Oximetry 97 09/06/24 04:03 Oxygen Delivery Method Room Air 09/06/24 04:03 Temperature 98.1 F 09/06/24 04:03 Pulse Rate 97 H 09/06/24 04:03 Respiratory Rate 18 09/06/24 04:03 Blood Pressure 118/64 09/06/24 04:03 Pulse Oximetry 97 09/06/24 04:03 Oxygen Delivery Method Room Air 09/06/24 04:03 MDM - Nausea/Vomiting/Diarrhea MDM Narrative Medical decision making narrative: This 24-year-old female who is 22 weeks presents for evaluation of nausea vomiting and diarrhea that started last night. She started with diarrhea which mostly resolved but she states that every time she went to the bathroom she had to throw up. She has had multiple episodes of vomiting prior to coming to the emergency department. The patient works at [employer]. She does not know if she has any sick colleagues at work. She denies any related complaints and states she can feel her baby moving. An IV was placed and she was medicated with IV fluids, Zofran and Pepcid. Routine labs are ordered and reviewed. She has a mildly elevated white count at 11.3 and stable hemoglobin. Electrolytes are normal with a mildly low CO2 at 22. Urine is not convincing for infection and a culture was ordered. On reevaluation she states she is feeling better but is reluctant to try anything by mouth because she is afraid she will throw it up. She will be given an initial dose of IV Zofran prior to discharge and I Zofran ODT to take as needed at home additionally I will give her a prescription for Pepcid and Zofran. She was encouraged to drink plenty of fluids and follow-up with Dr. Hodge as needed and return to the emergency department for worsening symptoms or any concerns. Lab Data Labs: Lab Results 09/06/24 09/06/24 Range/Units 04:25 04:36 WBC 11.3 H (4.0-11.0) 10^3/uL RBC 4.08 L (4.20-5.40) 10^6/uL Hgb 10.8 L (12.0-16.0) g/dL Hct 33.6 L (36.0-48.0) % MCV 82.4 (81.0-99.0) fL MCH 26.5 L (26.7-34.0) pg MCHC 32.1 (29.9-35.2) g/dL RDW 14.3 (11.0-15.0) % Plt Count 291 (150-450) 10^3/uL MPV 10.4 (9.5-13.5) fL Neut % (Auto) 84.7 H (43.0-75.0) % Lymph % (Auto) 8.3 L (20.5-60.0) % [place] % (Auto) 6.1 (1.7-12.0) % Eos % (Auto) 0.3 L (0.9-7.0) % Baso % (Auto) 0.2 (0.2-2.0) % Neut # (Auto) 9.6 H (1.4-6.5) 10^3/uL Lymph # (Auto) 0.9 L (1.2-3.8) 10^3/uL [place] # (Auto) 0.7 (0.3-0.8) 10^3/uL Eos # (Auto) 0.0 (0.0-0.7) 10^3/uL Baso # (Auto) 0.0 (0.0-0.1) 10^3/uL Abs Immat Gran (auto) 0.05 H (0.00-0.03) 10^3/uL Imm/Tot Granulo (auto) 0.4 (0.0-0.5) % Sodium 136 (136-145) mmol/L Potassium 3.9 (3.5-5.1) mmol/L Chloride 102 (98-107) mmol/L Carbon Dioxide 22.0 (21.0-32.0) mmol/L Anion Gap 15.9 BUN 6.0 L (7.0-18.0) mg/dL Creatinine 0.60 (0.55-1.02) mg/dL Est GFR ( Amer) >60 (>=60 mL/min/1.73m^2) Est GFR (Non-Af Amer) >60 (>=60 mL/min/1.73m^2) BUN/Creatinine Ratio 10.0 Glucose 98 (74-106) mg/dL Calcium 8.4 L (8.5-10.1) mg/dL Total Bilirubin 0.2 (0.2-1.0) mg/dL AST 10 L (15-37) U/L ALT 10 L (14-59) U/L Alkaline Phosphatase 71 (46-116) U/L Total Protein 7.1 (6.4-8.2) g/dL Albumin 2.5 L (3.4-5.0) g/dL Globulin 4.6 g/dL Albumin/Globulin Ratio 0.5 Urine Color Yellow (YELLOW) Urine Clarity Clear (CLEAR) Urine pH 6.0 (5.0-9.0) Ur Specific [place] >=1.030 A (1.005-1.025) Urine Protein 30 A (NEG/TRACE) mg/dL Urine Glucose (UA) Negative (NEGATIVE) mg/dL Urine Ketones Trace A (NEGATIVE) mg/dL Urine Occult Blood Negative (NEGATIVE) Urine Nitrite Negative (NEGATIVE) Urine Bilirubin Negative (NEGATIVE) Urine Urobilinogen 0.2 (0.2-1.0) EU/dL Ur Leukocyte Esterase Negative (NEGATIVE) Urine RBC 0-2 (0-2) #/HPF Urine WBC 0-2 A (NONE SEEN) #/HPF Ur Squamous Epith Cells Few A (NONE/RARE) #/LPF Urine Crystals None seen (None Seen) #/HPF Urine Bacteria Moderate A (NONE SEEN) #/HPF Urine Casts None seen (NONE SEEN) #/LPF Urine Mucus Large A (NONE SEEN) Discharge Plan Discharge Chief Complaint: Nausea/Vomiting/Diarrhea Clinical Impression: Gastroenteritis Patient Disposition: Home, Self-Care Time of Disposition Decision: 05:50 Condition: Good Prescriptions / Home Meds: No Action DAILY Print Language: Persian Instructions: Gastroenteritis (ED) Referrals: Physician,Non-Staff, [Primary Care Provider] - 1 week Discharge Date/Time: 09/06/24 06:32
[2024-09-06 04:44] LABS: Basophils Percent Auto 0.2 % (0.2-2.0); Eosinophils Percent Auto 0.3 % (0.9-7.0); Hematocrit 33.6 % (36.0-48.0); Hemoglobin 10.8 g/dL (12.0-16.0); Immature Granulocytes Abs Auto 0.05 10^3/uL (0.00-0.03); Immature Granulocytes Pct Auto 0.4 % (0.0-0.5); Lymphocytes Absolute Auto 0.9 10^3/uL (1.2-3.8); Lymphocytes Percent Auto 8.3 % (20.5-60.0); Mean Corpuscular HGB Conc 32.1 g/dL (29.9-35.2); Mean Corpuscular Hemoglobin 26.5 pg (26.7-34.0); Mean Corpuscular Volume 82.4 fL (81.0-99.0); Mean Platelet Volume 10.4 fL (9.5-13.5); Monocytes Absolute Auto 0.7 10^3/uL (0.3-0.8); Monocytes Percent Auto 6.1 % (1.7-12.0); Neutrophils Absolute Auto 9.6 10^3/uL (1.4-6.5); Neutrophils Percent Auto 84.7 % (43.0-75.0); Platelet Count 291 10^3/uL (150-450); Red Blood Count 4.08 10^6/uL (4.20-5.40); Red Cell Distribution Width 14.3 % (11.0-15.0); White Blood Count 11.3 10^3/uL (4.0-11.0)
[2024-09-06] MEDS: 0.9 % SODIUM CHLORIDE 1,000 ML 1000 ML IV (04:45)
[2024-09-06] MEDS: FAMOTIDINE/PF 20 MG/2 ML VIAL IV (04:45)
[2024-09-06] MEDS: ONDANSETRON PF 4 MG/2 ML VIAL IV ×2 (04:45→06:14)
[2024-09-06 04:54] LABS: Bilirubin Urine NEGATIVE (NEGATIVE); Blood Urine NEGATIVE (NEGATIVE); Clarity Urine CLEAR (CLEAR); Color Urine YELLOW (YELLOW); Glucose Urine UA NEGATIVE (NEGATIVE); Ketones Urine TRACE mg/dL (NEGATIVE); Leukocyte Esterase Urine NEGATIVE (NEGATIVE); Nitrite Urine NEGATIVE (NEGATIVE); Protein Urine 30 mg/dL (NEG/TRACE); Specific Gravity Urine >=1.030 (1.005-1.025); Urobilinogen Urine 0.2 EU/dL (0.2-1.0)
[2024-09-06 05:02] LABS: Bacteria Urine MODERATE #/HPF (NONE SEEN); Cast Seen? NONE SEEN #/LPF (NONE SEEN); Crystals Seen? None Seen #/HPF (None Seen); Mucus Urine LARGE (NONE SEEN); RBC Urine 0-2 #/HPF (0-2); Squamous Epithelial Cell Urine FEW #/LPF (NONE/RARE); WBC Urine 0-2 #/HPF (NONE SEEN)
[2024-09-06 05:11] LABS: Alanine Aminotransferase 10 U/L (14-59); Albumin Globulin Ratio 0.5; Albumin Level 2.5 g/dL (3.4-5.0); Alkaline Phosphatase 71 U/L (46-116); Anion Gap 15.9; Aspartate Amino Transferase 10 U/L (15-37); Bilirubin Total 0.2 mg/dL (0.2-1.0); Calcium 8.4 mg/dL (8.5-10.1); Chloride 102 mmol/L (98-107); Estimated GFR (African America >60 (>=60 mL/min/1.73m^2); Estimated GFR (Non-African Ame >60 (>=60 mL/min/1.73m^2); Globulin 4.6 g/dL; Glucose 98 mg/dL (74-106); Potassium 3.9 mmol/L (3.5-5.1); Sodium 136 mmol/L (136-145); Total Protein 7.1 g/dL (6.4-8.2)
[2024-09-06] MEDS: ONDANSETRON 4 MG RAPDIS TABLET SL (06:14)
== END 2024-09-06 06:32 | disposition home or self-care (01) ==
PROVIDERS: Emergency Provider Emergency Medicine
DX: O99.612 Diseases of the digestive system complicating pregnancy, second trimester (principal); K52.9 Noninfective gastroenteritis and colitis, unspecified; O99.332 Smoking (tobacco) complicating pregnancy, second trimester; F17.200 Nicotine dependence, unspecified, uncomplicated; Z3A.22 22 weeks gestation of pregnancy
CPT/HCPCS: 36415; 80053; 81001; 85025; 87086; 96361; 96374; 96375; 96376; 99284; J2405; J3490; Q0162

== ENCOUNTER 2024-10-10 11:18 | Outpatient (OUT) | payer MEDICAID, SELFPAY ==
--- OUTSIDE RECORDS SUMMARY | 2024-10-10 11:22 | XMS_ITS | CCD ---
Author Organization [facility] Care Team Providers Care Welcome Desk Agent Name Role Phone ALEXIA BARRETT Attending Unavailable ANDRZEJ HODGE Attending Unavailable KARASIK ., DR HALE [...] AYESHA ., DR LO Admitting Unavailable REQUEST, NONE [...] Unavailable Primary Care Provider Unavailabl e AYESHA, ANDRZEJ Attending Unavailable AYESHA, ANDRZEJ Referring Unavailable MIS, Attending Unavailable AYESHA, ANDRZEJ Attending Unavailable MIS, Attending Unavailable AYESHA, ANDRZEJ Attending Unavailable MIS, Attending Unavailable LACONIPAM Medley Attending Unavailable MIS, Attending Unavailable MIS, Attending Unavailable Unavailable Primary Care Provider Unavailabl e LOS HOLLINS Attending Unavailable AYESHA, ANDRZEJ R Referring Unavailable AYESHA, ANDRZEJ R Referring Unavailable Allergies Allergy Classification Reported Allergen(s) Allergy Type Date of Onset Reaction(s) Facility (3 sources) Pollen; Translations: [POLLEN EXTRACTS] Propensity to adverse reactions to drug Eye Swelling [facility] Medications Current Medications Medication Drug Class(es) Dates Sig (Normalized) Sig (Original) docusate sodium 100 mg oral capsule (8 sources) Start: 08-14-2024 End: 11-12-2024 take 1 capsule by mouth twice daily as needed for constipation docusate sodium (Colace) 100 MG capsule Indications: Constipation, unspecified constipation type Take 1 capsule (100 mg) by mouth 2 (two) times a day as needed for constipation 60 capsule 5 08/14/2024 11/12/2024 Active magnesium oxide 400 mg oral tablet (8 sources) Start: 08-14-2024 End: 08-14-2025 take 1 tablet by mouth once daily magnesium oxide (Mag-Ox) 400 MG tablet Indications: Other headache syndrome Take 1 tablet (400 mg) by mouth Daily 30 tablet 11 08/14/2024 08/14/2025 Active metroNIDAZOLE 500 mg oral tablet (5 sources) Nitroimidazole Antimicrobial Start: 09-11-2024 End: 09-18-2024 take 1 tablet by mouth in the morning metroNIDAZOLE (Flagyl) 500 MG tablet Indications: BV (bacterial vaginosis) Take 1 tablet (500 mg) by mouth in the morning and 1 tablet (500 mg) before bedtime. Do all this for 7 days. Do not drink alcohol while taking this medication. 14 tablet 09/11/2024 09/18/2024 Active [id number] AC-DHA ORAL (3 sources) [id number] AC-DHA ORAL Take by mouth. Active MV-Min-Fe Fum-FA-DHA (CENTRUM SPECIALIST PO) (18 sources) take 1 dose by mouth once in the morning MV-Min-Fe Fum-FA-DHA ([facility]) Take 1 each by mouth in the morning. Active take 1 dose by mouth once in the morning MV-Min-Fe Fum-FA-DHA ([facility]) Take 1 each by mouth in the morning. 0 Active progesterone 200 mg oral capsule (3 sources) Progesterone take 1 capsule by mouth in the morning progesterone (PROMETRIUM) 200 mg capsule Take 1 capsule (200 mg total) by mouth in the morning. Active Progesterone 200 MG suppository (7 sources) Start: 08-28-2024 End: 09-27-2024 Progesterone 200 MG suppository Indications: Short cervix affecting Insert 200 mg [...] Drug Class(es) Dates Sig (Normalized) Sig (Original) [id number] 200 actuat albuterol 0.09 mg/actuat metered dose [...] time. 0 09/21/2022 08/31/2023 Discontinued (Therapy completed) NE-Jir-QC-Corona-3 ( Gummies/DHA & FA) 0.4-32.5 MG chewable tablet (1 source) Start: 03-03-2023 End: 08-31-2023 GD-Aaq-BJ-Corona-3 ( Gummies/DHA & FA) 0.4-32.5 MG chewable tablet Problems Active Problems Problem Classification Problem Date Documented Da te Episodic/Chronic Abdominal pain (1 source) Pelvic and perineal pain; Translations: [PELVIC AND PERINEAL PAIN] Onset: 10-15-2022 Episodic Administrative/social admission (3 sources) Patient encounter status; Translations: [Encounter for pre-employment examination] 03-06-2024 Episodic Gastrointestinal hemorrhage (4 sources) Melena; Translations: [MELENA] Onset: 10-22-2022 Episodic Headache; including migraine (2 sources) Headache disorder; Translations: [Other headache syndrome] 08-14-2024 Episodic Inflammatory diseases of female pelvic organs (2 sources) Bacterial vaginosis; Translations: [Acute vaginitis] 09-11-2024 Episodic Menstrual disorders (20 sources) Amenorrhea; Translations: [Amenorrhea, unspecified] Onset: 10-26-2023 10-26-2023 Chronic Other complications of (5 sources) Missed ; Translations: [MISSED ] Onset: 09-15-2022 Episodic Other complications of (2 sources) Uterine contractions problem; Translations: [Other specified related conditions, unspecified trimester] 05-31-2024 Episodic Other complications of (5 sources) Short cervical length in ; Translations: [Cervical shortening, unspecified trimester] Onset: 09-14-2024 09-14-2024 Episodic Other complications of (1 source) Cervical shortening, unspecified trimester; Translations: [Cervical shortening, unspecified trimester] Onset: 09-14-2024 Episodic Other gastrointestinal disorders (2 sources) Constipation; Translations: [Constipation, unspecified] 08-14-2024 Episodic Other nutritional; endocrine; and metabolic disorders (17 sources) Obesity; Translations: [Obesity, unspecified] Onset: 10-26-2023 10-26-2023 Chronic Other and delivery including normal (13 sources) Encounter for test, result positive; Translations: [Third trimester ] Onset: 09-13-2022 Episodic Other screening for suspected conditions (not mental disorders or infectious disease) (14 sources) Encounter for screening for malignant neoplasm of cervix; Translations: [Patient encounter status] Onset: 07-21-2022 Episodic Residual codes; unclassified (2 sources) Gestation period, 8 weeks; Translations: [8 weeks gestation of ] 05-31-2024 Episodic Residual codes; unclassified (2 sources) Gestation period, 18 weeks; Translations: [18 weeks gestation of ] 08-14-2024 Episodic Residual codes; unclassified (2 sources) Gestation period, 22 weeks; Translations: [22 weeks gestation of ] 09-11-2024 Episodic Spontaneous (4 sources) Incomplete spontaneous without complication; Translations: [INCOMPL SPONT AB W/O COMPLICATION] Onset: 10-06-2022 Episodic Unclassified (3 sources) CONTACT W/AND (SUSP) EXPOS COVID-19; Translations: [CONTACT W/AND (SUSP) EXPOS COVID-19] Onset: 06-09-2022 Unclassified (1 source) short cervix Onset: 09-14-2024 Past or Other Problems Problem Classification Problem Date Documented Date Episodic/Chronic Cancer of cervix (20 sources) Low grade [...] Onset: 08-17-2022 Episodic Other female genital disorders (17 sources) Disorder of female genital system; Translations: [Unspecified condition associated with female genital organs and menstrual cycle] Onset: 10-26-2023 10-26-2023 Episodic Residual codes; unclassified (1 source) Less than 8 weeks gestation of ; Translations: [< 8 WEEKS GESTATION ] Onset: 08-17-2022 Episodic Unclassified (1 source) CONTACT W/AND (SUSP) EXPOS COVID-19; Translations: [CONTACT W/AND (SUSP) EXPOS COVID-19] Onset: 06-07-2022 Unclassified (1 source) Patient encounter status 09-14-2024 Results Test Name Value Interpretation Reference Range Facility US OB LIMITED 1+ FETUSESon 0 09-11-2024 US OB LIMITED 1+ FETUSES TITLE OF EXAM: OB Ultrasound: REASON FOR EXAM: Short cervix, nose/lips. COMPARISON: 08/29/2024 TECHNIQUE: Grayscale and M-mode Doppler imaging is performed. FINDINGS: Measurements: heart rate: 143 bpm Cervix Length: 1.9 cm FERN: 01/09/2025 Limited for: Incomplete anatomy, cervix. Presentation: Breech Lie: Longitudinal Heart Rate: 143 bpm Somatic Motion: Yes Cervical Length: 1.9 cm Closed Small amount of fluid in canal. facial structures/nose/lips demonstrated on this exam. IMPRESSION: 1. Single live intrauterine gestation in breech position with clinical dates 22 weeks 6 days. 2. Cervix is closed and measures 2 cm in length. Dictated and transcribed 09/11/24/dpd This report has been electronically signed and approved by the interpreting radiologist. Normal Not Available Comment on above: Order Comment: US OB INCOMPLETE ANATOMY Estimated Date of Delivery: 01/09/25 Gestational Age as of 08/28/2024: 22w5d Urinalysis macro (dipstick) panel (U)on 09-11-2024 Bilirubin, UA Negative Negative - 4(70) +++ mg/dL [facility] Blood, UA Negative Negative - 50 William/mcL [facility] Clarity, UA Clear [facility] Color, UA Yellow [facility] Glucose, UA Negative Negative - 2000(110) ++++ mg/dL [facility] Interpretation and review of laboratory results Abnormal [facility] Ketones, UA Positive Negative - 160(16) ++++ mg/dL [facility] Comment on above: 40mg/dL Leukocytes, UA Positive Negative - 500+++ Roma/mcL [facility] Comment on above: small Nitrite, UA Negative Negative - Positive [facility] pH, UA 6.5 5 - 9 [facility] e Protein, UA Negative Negative - 2000(20) ++++ mg/dL [facility] Spec Grav, UA 1.025 1 - 1.03 [facility] Urobilinogen, UA 0.2 0.2 - 12 mg/dL [facility] AFP, SERUM, OPEN SPINA BIFID Aon 09-01-2024 AFP MOM 1.38 . [facility] Billeo e AFP VALUE 86.3 ng/mL . [facility] COMMENT: Comment . [facility] Comment on above: Kristi Han , Ph.D., [facility] Director References: Available Upon Request. Multiples Of Median Cutoffs For AFP Elevations Barahona 2.5 Black 2.8 IDD 2.0 Twins 4.5 Abbreviation Definitions IDD - Insulin Dep Diabetes OSBR - Open Spina Bifida Risk For further inquiries contact [facility] [facility] at [phone]. This test was developed and its performance characteristics determined by [employer]. It has not been cleared or approved by the Food and Drug Administration. Performed at: [facility] [address] [id number] Wrapper Hands Sprayer: Marisel Lewis [facility], Phone: [phone] GEST. AGE ON COLLECTION DATE 21.1 . weeks [facility] GESTAT. AGE BASED ON LMP . [facility] Comment on above: Recalculations are n ot recommended when gestational dating by LMP and ultrasound are within 10 days. INSULIN DEP DIABETES No . [facility] INTERPRETATION Comment . [facility] Healt hcare Comment on above: Interpretation: Scre [...] Customer Services to discuss available options. The [employer] recommends amniocentesis be offered to women age 35 and older. [age] [facility] MULTIPLE GESTATION No . [facility] OSBR RISK 1 IN 7620 . [facility] RACE Black . [facility] Healthcar e RESULTS Report . [facility] Healthcar e TEST RESULTS: Negative . [facility] Health care WEIGHT 183 . lbs [facility] Healthcar e N N LMP [id number] 18 N 1 183 N N N N N Black/ [facility] US OB 14+ WEEKS ANATOMY SCAN [...] ultrasound in 4 weeks. Dictated and transcribed 08/29/24/dpd This report has been electronically signed and approved by the interpreting radiologist. Normal Not Available Comment on above: Order Comment: US OB ANATOMY SINGLE W US OB CERVICAL LENGTH Estimated Date of Delivery: 01/09/25 Gestational Age as of 08/14/2024: 18w6d Screening, , for anatomic survey. Urinalysis macro (dipstick) panel (U)on 08-14-2024 Bilirubin, UA Negative Negative - 4(70) +++ mg/dL [facility] Blood, UA Negative Negative - 50 William/mcL [facility] Clarity, UA Clear [facility] Healthne re Color, UA Yellow [facility] Healthcar e Glucose, UA Negative Negative - 1999(110) ++++ mg/dL [facility] Interpretation and review of laboratory results Normal [facility] Ketones, UA Negative Negative - 160(16) ++++ mg/dL [facility] Leukocytes, UA Negative Negative - 500+++ Roma/mcL [facility] Nitrite, UA Negative Negative - Positive [facility] pH, UA 7 5 - 9 [facility] e Protein, UA Negative Negative - 1999(20) ++++ mg/dL [facility] Spec Grav, UA 1.02 1 - 1.03 [facility] Urobilinogen, UA 0.2 0.2 - 12 mg/dL [facility] US OB TRANSVAGINALon 025 US [...] 3.5 cm in length. Dictated and transcribed 08/02/24/dpd This report has been electronically signed and approved by the interpreting radiologist. Normal Not Available Comment on above: Order Comment: US OB TRANSVAGINAL (CERVICAL LENGTH) Estimated Date of Delivery: 01/09/25 Gestational Age as of 07/16/2024: 17w0d IGP,APTIMA HPV,AGE GDLNon AGE GDLN ACOG TESTING Note . [facility] Comment on above: TESTS RESULT FLAG UN ITS REF RANGE LAB Clinician Provided Cytology Information Source.............Cervix No. of containers..01 ThinPrep Vial Age Laura POLLACK Kassidy... FLAG LEGEND: L-Low Normal,H-High Normal,LL-Alert Low,HH-Alert High <-Panic Low,>-Panic High,A-Abnormal,AA-Critical Abnormal Performed at: 01 =[facility] [address] [place] [address] Cortney Arciniega MD, IGP, RFX APTIMA HPV ASCU Note . [facility] Comment on above: TESTS RESULT FLAG UN ITS REF RANGE LAB DIAGNOSIS: 02 NEGATIVE FOR INTRAEPITHELIAL LESION OR MALIGNANCY. Specimen adequacy: 02 Satisfactory for evaluation. No endocervical component is identified. Performed by: 02 Bry Segundo, Manager Treasury ([facility]) . 02 Note: Note 02 The Pap [...] <-Panic Low,>-Panic High,A-Abnormal,AA-Critical Abnormal Performed at: [address] [id number] Cortney Arciniega MD, Performed at: = - [facility] [id number] Wrapper Hands Sprayer: Cortney Arciniega MD, Phone: [phone] Performed at: [facility] [address] [id number] Wrapper Hands Sprayer: Cortney Arciniega MD, Phone: [phone] SPATULA-ALONE CERVIX [facility] HealthSimScale e Urinalysis macro (dipstick) panel (U)on 07-16-2024 Bilirubin, UA Negative Negative - 4(70) +++ mg/dL [facility] Blood, UA Negative Negative - 50 William/mcL [facility] Clarity, UA Clear [facility] Color, UA Yellow [facility] Glucose, UA Negative Negative - 2000(110) ++++ mg/dL [facility] Interpretation and review of laboratory results Normal [facility] Ketones, UA Negative Negative - 160(16) ++++ mg/dL [facility] Leukocytes, UA Negative Negative - 500+++ Roma/mcL [facility] Nitrite, UA Negative Negative - Positive [facility] pH, UA 8.5 5 - 9 [facility] Protein, UA Negative Negative - 1999(20) ++++ mg/dL [facility] Spec Grav, UA 1.02 1 - 1.03 [facility] Urobilinogen, UA 0.2 0.2 - 12 mg/dL [facility] BOX TESTon 06-14-2024 BOX TEST SENT OUT JAX Aguilera althcare BOX[address] [facility] Healthcar e BOX2 06/14/24 [facility] BOX [facility] No Panel Informationon 06-14 [facility] Healthcar e Rubella IGG immune statuson 06-14-2024 Rubella immune IgG IMMUNE [facility] HCG ( test) Ql (U)o n 06-07-2024 Interpretation and review of laboratory results Abnormal [facility] Preg Test, Ur Positive Negative [facility] Urinalysis macro (dipstick) panel (U)on 06-07-2024 Bilirubin, UA Negative Negative - 4(70) +++ mg/dL [facility] Blood, UA Negative Negative - 50 William/mcL [facility] Clarity, UA Clear [facility] Healthca re Color, UA Yellow [facility] Healthcar e Glucose, UA Negative Negative - 1999(110) ++++ mg/dL [facility] Interpretation and review of laboratory results Abnormal [facility] Ketones, UA Negative Negative - 160(16) ++++ mg/dL [facility] Leukocytes, UA Positive Negative - 500+++ Roma/mcL [facility] Comment on above: small Nitrite, UA Negative Negative - Positive [facility] pH, UA 7.5 5 - 9 [facility] Healthcar e Protein, UA Negative Negative - 1999(20) ++++ mg/dL [facility] Spec Grav, UA 1.02 1 - 1.03 [facility] Urobilinogen, UA 0.2 0.2 - 12 mg/dL [facility] Urinalysis macro (dipstick) panel (U)Ordered By: Shantel Rangel on 08-31-2023 Bilirubin, UA Negative Negative - 4(70) +++ mg/dL [facility] Blood, UA Negative Negative - 50 William/mcL [facility] Clarity, UA Clear [facility] Healthca re Color, UA Yellow [facility] Healthcar e Glucose, UA Negative Negative - 1999(110) ++++ mg/dL [facility] Interpretation and review of laboratory results Abnormal [facility] Ketones, UA Positive Negative - 160(16) ++++ mg/dL [facility] Leukocytes, UA Trace Negative - 500+++ Roma/mcL [facility] Nitrite, UA Negative Negative - Positive [facility] pH, UA 7.5 5 - 9 [facility] Protein, UA Trace Negative - 1999(20) ++++ mg/dL [facility] Spec Grav, UA 1.020 1 - 1.03 [facility] Urobilinogen, UA 0.2 0.2 - 12 mg/dL [facility] PAP ACOG PANEL 2: 21 to 29on 11-17-2022 . . Normal [facility] Comment on above: Performed By: #### [id number] #### [facility] [address] [place] [address] Dr. Aleah Peres Age Gdln ACOG Testing - [facility] Comment on above: Performed By: #### [id number] #### [facility] [address] [place] [address] Dr. Aleah Peres DIAGNOSIS: Comment [facility] Comment on above: Result Comment: NEGA TIVE FOR INTRAEPITHELIAL LESION OR MALIGNANCY. Performed By: #### [id number] #### [facility] [address] [place] [address] Dr. Aleah Peres Methodology: Comment [facility] Comment on above: Result Comment: This liquid based ThinPrep(R) pap test was screened with the use of an image guided system. Performed By: #### [id number] #### [facility] [address] [place] [address] Dr. Aleah Peres Note: Comment [facility] Comment on above: Result Comment: The Pap smear is a screening test designed to aid in the detection of premalignant and malignant conditions of the uterine cervix. It is not a diagnostic procedure and should not be used as the sole means of detecting cervical cancer. Both false-positive and false-negative reports do occur. . Performed By: #### [id number] #### [facility] [address] [address] [address] Aleah Peres Performed by: Comment Normal [facility] Comment on above: Result Comment: Annelise Martinez Manager Treasury Performed By: #### [id number] #### [facility] [address] [address] [address] Aleah Peres Reflex Criteria: Comment Normal [facility] Comment on above: Result Comment: The HPV DNA reflex criteria were not met with this specimen result therefore, no HPV testing was performed. . Performed By: #### [id number] #### [facility] [address] [address] [address] Aleah Peres Specimen adequacy: Comment Normal [facility] Comment on above: Result Comment: Sati sfactory for evaluation. Endocervical and/or squamous metaplastic cells (endocervical component) are present. Performed By: #### 4 [id number] #### [facility] [address] [address] [address] Aleah Peres Cytology Cervical or vaginal smear or scraping studyon 11-10-2022 [facility] OCC BLD IMMUNO SCREENon 04-0 OCCULT BLOOD Negative Normal NEGATIVE [facility] Comment on above: Performed By: #### O BSCRN #### [facility] [address] [place] [address] Dr. Aleah Peres SURGICAL PATH REPORTon 10-11 SURGICAL PATH REPORT [facility] Department of Pathology [address] [place] [phone] Name: CAMERON HIGGINS : 2000 [facility] [id number] Number: [facility] : n: Admit 22 years Attending ALEXIA BARRETT Age: Provider: Ordering ALEXIA BARRETT Provider: Consulti Surgical Pathology Report ng: ACCESSION: COLLECTED DATE/TIME: RECEIVED DATE/TIME: PATHOLOGIST: [id number] 10/08/2022 12:03 EDT 10/08/2022 12:03 EDT TOM AGUERO MD Final Diagnosis Report for [facility] [place] [place] RETAINED PRODUCTS OF CONCEPTION: - CHORIONIC VILLI. TOM AGUERO PATHOLOGIST (Electronic Signature) Date Verified 10/11/2022 LN Clinical Data PRE-OP DIAGNOSIS: Not specified POST-OP DIAGNOSIS: Retained products of conception PROCEDURES: D and C with suction SPECIMEN: Products of conception / Ambulatory surgery Gross Description Labeled products of conception. Received in formalin in a suction sock are multiple irregular segments of medarno pink to red fine granular soft tissue. These measure in aggregate 5.0 x 2.0 x 0.5 cm. There are no grossly identifiable parts. The specimen is entirely submitted in two cassettes. MP/ ald 10/08/2022 Tissue pathology report for: [facility], [address] [place] [address]; ____ Print 10/11/2022 15:01 EDT Number: Date/Time: [facility] Department of Pathology [address] [place] [phone] Name: CAMERON HIGGINS : 2000 [facility] [id number] Number: Gender [facility] n: Admit 22 years Attending ALEXIA BARRETT Age: Provider: Ordering ALEXIA BARRETT Provider: Consulti Surgical Pathology Report ng: ACCESSION: COLLECTED DATE/TIME: RECEIVED DATE/TIME: PATHOLOGIST: [id number] 10/08/2022 12:03 EDT 10/08/2022 12:03 EDT TOM AGUERO MD Gross Description PATHOLOGY SERVICES PROVIDED BY [facility] (CLIA #[id number]) in cooperation with [facility] at [address] [place] [address] ( CLIA #[id number]) Codes CPT CODE: 30071 ____ Print 10/11/2022 15:01 EDT Number: Date/Time: Normal [facility] Comment on above: Performed By: #### [id number] #### [facility] [address] [place] [id number] Accounting Administrative Assistant: Tom Aguero MD URon 10-08-2022 , QUAL Negative Normal NEGATIVE [facility] Comment on above: Performed By: #### P REGU #### [facility] [address] [place] [address] Dr. Aleah Peres US PELVIS AND TRANSVAGon [...] by: PIPPA ORTEGA Date: 2022-10-06 14:55 Normal [facility] SURGICAL PATH REPORTon 09-16 SURGICAL PATH REPORT [facility] Department of Pathology [address] [place] [phone] Name: SCOTT ALEXANDRA Ortega : 2000 [employer] [id number] Number: Gender Female Peter OLMOS SYED : n: Admit 22 years Attending ANDRZEJ HODGE Age: Provider: Ordering ANDRZEJ HODGE Provider: [facility] Pathology Report ng: ACCESSION: COLLECTED DATE/TIME: RECEIVED DATE/TIME: PATHOLOGIST: [id number] 09/15/2022 12:34 EST 09/15/2022 12:34 EST LILLIE KHAN, LUIS ERAZO Final Diagnosis Report for [facility] [place] [place] PRODUCTS OF CONCEPTION, DILATION AND CURETTAGE: - CHORIONIC VILLI ARE PRESENT; NO SIGNIFICANT ATYPIA IS OBSERVED. - BENIGN MATERIAL DECIDUA PRESENT. - NO PARTS ARE IDENTIFIED. LUIS MOREIRA PATHOLOGIST (Electronic Signature) Date Verified 09/16/2022 LN Clinical Data PRE-OP DIAGNOSIS: Not specified POST-OP DIAGNOSIS: Missed PROCEDURES: D and C with suction SPECIMEN: Products of conception / respiratory care program director Gross Description Labeled products of conception. Received in formalin in a suction sock are multiple irregular segments of medrano pink to red black soft tissue. The individual segments have a variable granular to partially smooth glistening membranous character. The specimen in total aggregate measures 12.5 x 7.5 x 4.0 cm. There are no grossly identifiable parts. Adult Parole Officer sections are submitted in three cassettes. MP/ald 09/15/2022 ____ Print 09/16/2022 14:53 EST Number: Date/Time: [facility] Department of Pathology [address] [place] [address] Name: ALEXANDRA HIGGINS : 2000 Financial [id number] Number: Gender Female Locatio AMARILIS VARNVILLE : n: Admit 22 years Attending ANDRZEJ HODGE Age: Provider: Ordering ANDRZEJ HODGE Provider: Consulti Surgical Pathology Report ng: ACCESSION: COLLECTED DATE/TIME: RECEIVED DATE/TIME: PATHOLOGIST: [id number] 09/15/2022 12:34 EST 09/15/2022 12:34 EST LILLIE KHAN, LUIS ERAZO Gross Description Tissue pathology report for: [facility], [address] [place] [address]; PATHOLOGY SERVICES PROVIDED BY [employer] (CLIA #[id number]) in cooperation with [facility] at [address] [place] [address] ( CLIA #[id number]) Codes CPT CODE: 36344 ____ Print 09/16/2022 14:53 EST Number: Date/Time: Normal [facility] Comment on above: Performed By: #### [id number] #### [facility] [address] [place] [address] Accounting Administrative Assistant: Tom Aguero MD CBC AUTO DIFFon 09-15-2022 BASO # 0.0 103/ul Normal 0.0-0.1 [facility] Comment on above: Performed By: #### C BC #### [facility] [address] [place] [address] Dr. Aleah Peres Basophils/100 WBC (Bld) 0.4 % Normal 0.2-2.0 [facility] Comment on above: Performed By: #### C BC #### [facility] [address] [place] [address] Dr. Aleah Peres EO # 0.1 103/ul Normal 0.0-0.7 [facility] Comment on above: Performed By: #### C BC #### [facility] [address] [place] [address] Dr. Aleah Peres Eosinophils/100 WBC (Bld) 1.3 % Normal 0.9-7.0 [facility] Comment on above: Performed By: #### C BC #### [facility] [address] [place] [address] Dr. Aleah Peres Erythrocyte distribution width (RBC) [Ratio] 13.8 % Normal 11.0-15.0 [facility] Comment on above: Performed By: #### C BC #### [facility] [address] [place] [address] Dr. Aleah Peres Hematocrit (Bld) [Volume fraction] 35.5 % Critically low 36.0-48.0 [facility] Comment on above: Performed By: #### C BC #### [facility] [address] [place] [address] Dr. Aleah Peres Hemoglobin (Bld) [Mass/Vol] 11.6 g/dL Critically low 12.0-16.0 [facility] Comment on above: Performed By: #### C BC #### [facility] [address] [place] [address] Dr. Aleah Peres IG # 0.03 10e3/ul Normal 0.00-0.03 [facility] Comment on above: Performed By: #### C BC #### [facility] [address] [place] [address] Dr. Aleah Peres IG % 0.4 % Normal 0.0-0.5 [facility] Comment on above: Performed By: #### C BC #### [facility] [address] [place] [address] Dr. Aleah Peres LYMPH # 2.8 103/ul Normal 1.2-3.8 [facility] Comment on above: Performed By: #### C BC #### [facility] [address] [place] [address] Dr. Aleah Peres Lymphocytes/100 WBC (Bld) 32.9 % Normal 20.5-60.0 [facility] Comment on above: Performed By: #### C BC #### [facility] [address] [place] [address] Dr. Aleah Peres MANUAL DIFF REQ NO Normal [facility] Comment on above: Performed By: #### C BC #### [facility] [address] [place] [address] Dr. Aleah Peres MCH (RBC) [Entitic mass] 26.9 pg Normal 26.7-34.0 [facility] Comment on above: Performed By: #### C BC #### [facility] [address] [place] [address] Dr. Aleah Peres MCHC (RBC) [Mass/Vol] 32.7 g/dL Normal 29.9-35.2 [facility] Comment on above: Performed By: #### C BC #### [facility] [address] [place] [address] Dr. Aleah Peres MCV (RBC) [Entitic vol] 82.4 fL Normal 81.0-99.0 [facility] Comment on above: Performed By: #### C BC #### [facility] [address] [place] [address] Dr. Aleah Perse MONO # 0.7 103/ul Normal 0.3-0.8 [facility] Comment on above: Performed By: #### C BC #### [facility] [address] [place] [address] Dr. Aleah Peres Monocytes/100 WBC (Bld) 8.6 % Normal 1.7-12.0 [facility] Comment on above: Performed By: #### C BC #### [facility] [address] [place] [address] Dr. Aleah Peres NEUT # 4.8 103/ul Normal 1.4-6.5 [facility] Comment on above: Performed By: #### C BC #### [facility] [address] [place] [address] Dr. Aleah Peres Neutrophils/100 WBC (Bld) 56.4 % Normal 43.0-75.0 [facility] Comment on above: Performed By: #### C BC #### [facility] [address] [place] [address] Dr. Aleah Peres Platelet mean volume (Bld) [Entitic vol] 9.9 fL Normal 9.5-13.5 [facility] Comment on above: Performed By: #### C BC #### [facility] [address] [place] [address] Dr. Aleah Peres PLT 316 103/ul Normal 150-450 [facility] Comment on above: Performed By: #### C BC #### [facility] [address] [place] [address] Dr. Aleah Peres RBC 4.31 106/ul Normal 4.20-5.40 [facility] Comment on above: Performed By: #### C BC #### [facility] [address] [place] [address] Dr. Aleah Peres WBC 8.4 103/ul Normal 4.0-11.0 [facility] Comment on above: Performed By: #### C BC #### [facility] [address] [place] [address] Dr. Aleah Peres PREG QUANT HCGon 09-15-2022 HCG QUANT 29464 mIU/mL Normal [facility] Comment on above: Performed By: #### P REGQNT #### [facility] [address] [place] [address] Dr. Aleah Peres HCG RANGE SEE BELOW Normal [facility] Comment on above: Result Comment: 5-50 0.2-1 WEEK 50-500 1-2 WEEKS 100-5,000 2-3 WEEKS 500-10,000 3-4 WEEKS 1,000-50,000 4-5 WEEKS 10,000-100,000 5-6 WEEKS 15,000-200,000 6-8 WEEKS 10,000-100,000 2-3 MONTHS Performed By: #### P REGQNT #### [facility] [address] [place] [address] Dr. Aleah Peres TYPE AND SCREENon 09-15-2022 TYPE AND SCREEN Negative Normal [facility] Comment on above: Performed By: #### P REGQNT #### [facility] [address] [address] [address] Aleah Peres US PELVISon 09-15-2022 US PELVIS EXAMINATION: US PELVIS HISTORY: Spontaneous COMPARISON: No relevant comparison available. TECHNIQUE: Transabdominal and transvaginal sonographic examination. FINDINGS: UTERUS: Small amount of fluid within endometrial cavity. No visible retained products of conception. IMPRESSION: 1. No appreciable retained products of conception within uterine cavity. Electronically authenticated by: ASHLEY NOEL Date: 2022-09-15 15:42 Normal [facility] US PREG TVon 09-13-2022 US [...] Right ovary was not identified. Normal [facility] CBC AUTO DIFFon 08-16-2022 BASO # 0.0 103/ul Normal 0.0-0.1 [facility] Comment on above: Performed By: #### C BC #### [facility] [address] [address] [address] Aleah Peres Basophils/100 WBC (Bld) 0.4 % Normal 0.2-2.0 [facility] Comment on above: Performed By: #### C BC #### [facility] [address] [place] [address] Dr. Aleah Peres EO # 0.1 103/ul Normal 0.0-0.7 [facility] Comment on above: Performed By: #### C BC #### [facility] [address] [place] [address] Dr. Aleah Peres Eosinophils/100 WBC (Bld) 1.4 % Normal 0.9-7.0 [facility] Comment on above: Performed By: #### C BC #### [facility] [address] [place] [address] Dr. Aleah Peres Erythrocyte distribution width (RBC) [Ratio] 13.6 % Normal 11.0-15.0 [facility] Comment on above: Performed By: #### C BC #### [facility] [address] [place] [address] Dr. Aleah Peres Hematocrit (Bld) [Volume fraction] 32.4 % Critically low 36.0-48.0 [facility] Comment on above: Performed By: #### C BC #### [facility] [address] [place] [address] Dr. Aleah Peres Hemoglobin (Bld) [Mass/Vol] 11.2 g/dL Critically low 12.0-16.0 [facility] Comment on above: Performed By: #### C BC #### [facility] [address] [place] [address] Dr. Aleah Peres IG # 0.02 10e3/ul Normal 0.00-0.03 [facility] Comment on above: Performed By: #### C BC #### [facility] [address] [place] [address] Dr. Aleah Peres IG % 0.3 % Normal 0.0-0.5 [facility] Comment on above: Performed By: #### C BC #### [facility] [address] [place] [address] Dr. Aleah Peres LYMPH # 2.4 103/ul Normal 1.2-3.8 [facility] Comment on above: Performed By: #### C BC #### [facility] [address] [place] [address] Dr. Aleah Peres Lymphocytes/100 WBC (Bld) 32.3 % Normal 20.5-60.0 [facility] Comment on above: Performed By: #### C BC #### [facility] [address] [place] [address] Dr. Aleah Peres MANUAL DIFF REQ NO Normal [facility] Comment on above: Performed By: #### C BC #### [facility] [address] [place] [address] Dr. Aleah Peres MCH (RBC) [Entitic mass] 26.9 pg Normal 26.7-34.0 [facility] Comment on above: Performed By: #### C BC #### [facility] [address] [place] [address] Dr. Aleah Peres MCHC (RBC) [Mass/Vol] 34.6 g/dL Normal 29.9-35.2 [facility] Comment on above: Performed By: #### C BC #### [facility] [address] [place] [address] Dr. Aleah Peres MCV (RBC) [Entitic vol] 77.9 fL Critically low 81.0-99.0 [facility] Comment on above: Performed By: #### C BC #### [facility] [address] [place] [address] Dr. Aleah Peres MONO # 0.7 103/ul Normal 0.3-0.8 [facility] Comment on above: Performed By: #### C BC #### [facility] [address] [place] [address] Dr. Aleah Peres Monocytes/100 WBC (Bld) 9.1 % Normal 1.7-12.0 [facility] Comment on above: Performed By: #### C BC #### [facility] [address] [place] [address] Dr. Aleah Peres NEUT # 4.1 103/ul Normal 1.4-6.5 [facility] Comment on above: Performed By: #### C BC #### [facility] [address] [place] [address] Dr. Aleah Peres Neutrophils/100 WBC (Bld) 56.5 % Normal 43.0-75.0 [facility] Comment on above: Performed By: #### C BC #### [facility] [address] [place] [address] Dr. Aleah Peres Platelet mean volume (Bld) [Entitic vol] 9.4 fL Critically low 9.5-13.5 [facility] Comment on above: Performed By: #### C BC #### [facility] [address] [place] [address] Dr. Aleah Peres PLT 303 103/ul Normal 150-450 [facility] Comment on above: Performed By: #### C BC #### [facility] [address] [place] [address] Dr. Aleah Peres RBC 4.16 106/ul Critically low 4.20-5.40 [facility] Comment on above: Performed By: #### C BC #### [facility] [address] [place] [address] Dr. Aleah Peres WBC 7.3 103/ul Normal 4.0-11.0 [facility] Comment on above: Performed By: #### C BC #### [facility] [address] [place] [address] Dr. Aleah Peres ER URINE PROFILEon 3 Bilirubin Ql (U) Negative Normal NEGATIVE [facility] Comment on above: Performed By: #### E RUR #### [facility] [address] [place] [address] Dr. Aleah Peres Clarity (U) CLEAR Normal CLEAR [facility] Comment on above: Performed By: #### E RUR #### [facility] [address] [place] [address] Dr. Aleah Peres Color (U) YELLOW Normal YELLOW [facility] Comment on above: Performed By: #### E RUR #### [facility] [address] [place] [address] Dr. Aleah OMALLEY A micrscopic examination will be performed if indicated. Normal [facility] Comment on above: Performed By: #### E RUR #### [facility] [address] [place] [address] Dr. Aleah Peres Glucose Ql (U) Negative Normal NEGATIVE [facility] Comment on above: Performed By: #### E RUR #### [facility] [address] [place] [address] Dr. Aleah Peres Hemoglobin Ql (U) Negative Normal NEGATIVE [facility] Comment on above: Performed By: #### E RUR #### [facility] [address] [place] [address] Dr. Aleah Peres Ketones Ql (U) Negative Normal NEGATIVE [facility] Comment on above: Performed By: #### E RUR #### [facility] [address] [place] [address] Dr. Aleah Peres LEUKOCYTES Negative Normal NEGATIVE [facility] Comment on above: Performed By: #### E RUR #### [facility] [address] [place] [address] Dr. Aleah Peres Nitrite Ql (U) Negative Normal NEGATIVE [facility] Comment on above: Performed By: #### E RUR #### [facility] [address] [place] [address] Dr. Aleah Peres pH (U) 6.0 [pH] Normal 5-9 [facility] Comment on above: Performed By: #### E RUR #### [facility] [address] [place] [address] Dr. Aleah Peres SPEC GRAVITY 1.020 Normal 1.005-<=1.025 [facility] Comment on above: Performed By: #### E RUR #### [facility] [address] [place] [address] Dr. Aleah Peres UA PROTEIN Negative Normal NEGATIVE/ TRACE [facility] Comment on above: Performed By: #### E RUR #### [facility] [address] [place] [address] Dr. Aleah Peres UR MICRO IND NOT INDICATED Normal [facility] Comment on above: Performed By: #### E RUR #### [facility] [address] [address] [address] Aleah Peres Urobilinogen Qn (U) 0.2 {Edmund'U}/dL Normal 0.2 - 1. 0 [facility] Comment on above: Performed By: #### E RUR #### [facility] [address] [place] [address] Dr. Aleah Peres PROF 14(COMP METB)on 023 Albumin [Mass/Vol] 3.0 g/dL Critically low 3.4-5.0 [facility] Comment on above: Performed By: #### C MP #### [facility] [address] [place] [address] Dr. Aleah Peres Albumin/Globulin [Mass ratio] 0.8 {ratio} Normal [facility] Comment on above: Performed By: #### C MP #### [facility] [address] [place] [address] Dr. Aleah Peres ALP [Catalytic activity/Vol] 52 U/L Normal 46-116 [facility] Comment on above: Performed By: #### C MP #### [facility] [address] [place] [address] Dr. Aleah Peres ALT [Catalytic activity/Vol] 15 U/L Normal 14-59 [facility] Comment on above: Performed By: #### C MP #### [facility] [address] [place] [address] Dr. Aleah Peres Anion gap [Moles/Vol] 10.2 mmol/L Normal [facility] Comment on above: Performed By: #### C MP #### [facility] [address] [place] [address] Dr. Aleah Peres AST [Catalytic activity/Vol] 13 U/L Critically low 15-37 [facility] Comment on above: Performed By: #### C MP #### [facility] [address] [place] [address] Dr. Aleah Peres Bilirubin [Mass/Vol] 0.2 mg/dL Normal 0.2-1.0 [facility] Comment on above: Performed By: #### C MP #### [facility] [address] [address] [address] Aleah Peres Calcium [Mass/Vol] 9.1 mg/dL Normal 8.5-10.1 [facility] Comment on above: Performed By: #### C MP #### [facility] [address] [address] [address] Aleah Peres Chloride [Moles/Vol] 100 mmol/L Normal 98-107 [facility] Comment on above: Performed By: #### C MP #### [facility] [address] [address] [address] Aleah Peres CO2 [Moles/Vol] 28.8 mmol/L Normal 21.0-32.0 [facility] Comment on above: Performed By: #### C MP #### [facility] [address] [place] [address] Dr. Aleah Peres Creatinine [Mass/Vol] 0.56 mg/dL Normal 0.55-1.02 [facility] Comment on above: Performed By: #### C MP #### [facility] [address] [address] [address] Aleah Peres EGFR-AF LAO >60 Normal >=60 [facility] Comment on above: Performed By: #### C MP #### [facility] [address] [place] [address] Dr. Aleah Peres EGFR-NON AF LAO >60 Normal >=60 [facility] Comment on above: Performed By: #### C MP #### [facility] [address] [address] [address] Aleah Peres Globulin (S) [Mass/Vol] 3.9 g/dL Normal [facility] Comment on above: Performed By: #### C MP #### [facility] [address] [address] [address] Aleah Peres Glucose [Mass/Vol] 90 mg/dL Normal 74-106 [facility] Comment on above: Performed By: #### C MP #### [facility] [address] [address] [address] Aleah Peres Potassium [Moles/Vol] 4.0 mmol/L Normal 3.5-5.1 [facility] Comment on above: Performed By: #### C MP #### [facility] [address] [address] [address] Aleah Peres Protein [Mass/Vol] 6.9 g/dL Normal 6.4-8.2 [facility] Comment on above: Performed By: #### C MP #### [facility] [address] [address] [address] Aleah Peres Sodium [Moles/Vol] 135 mmol/L Critically low 136-145 [facility] Comment on above: Performed By: #### C MP #### [facility] [address] [address] [address] Aleah Peres Urea nitrogen [Mass/Vol] 4.0 mg/dL Critically low 7.0-18.0 [facility] Comment on above: Performed By: #### C MP #### [facility] [address] [address] [address] Aleah Peres Urea nitrogen/Creatinine [Mass ratio] 7.1 mg/mg Normal [facility] Comment on above: Performed By: #### C MP #### [facility] [address] [place] [address] Dr. Aleah Peres PAP ACOG PANEL 2: 20 to 28on 08-02-2022 . . Normal [facility] Comment on above: Result Comment: Perf ormed at: WB Performed By: #### [id number] #### [facility] [address] [place] [address] Dr. Aleah Peres Age Gdln ACOG Testing - [facility] Comment on above: Performed By: #### [id number] #### [facility] [address] [place] [address] Dr. Aleah Peres DIAGNOSIS: Comment Abnormal [facility] Comment on above: Result Comment: EPIT HELIAL CELL ABNORMALITY. LOW GRADE SQUAMOUS INTRAEPITHELIAL LESION (LSIL). Performed at: WB Performed By: #### [id number] #### [facility] [address] [place] [address] Dr. Aleah Peres Electronically signed by: Comment Normal [facility] Comment on above: Result Comment: Amena Arciniega MD, Pathologist Performed at: WB Performed By: #### [id number] #### [facility] [address] [place] [address] Dr. Aleah Peres Methodology: Comment Normal [facility] Comment on above: Result Comment: This liquid based ThinPrep(R) pap test was screened with the use of an image guided system. Performed at: WB Performed By: #### [id number] #### [facility] [address] [place] [address] Dr. Aleah Peres Note: Comment Normal [facility] Comment on above: Result Comment: The Pap smear is a screening test designed to aid in the detection of premalignant and malignant conditions of the uterine cervix. It is not a diagnostic procedure and should not be used as the sole means of detecting cervical cancer. Both false-positive and false-negative reports do occur. . Performed at: WB Performed By: #### [id number] #### [facility] [address] [place] [address] Dr. Aleah Peres Pathologist Provided ICD10 Comment Normal [facility] Comment on above: Result Comment: [id number] Performed at: WB Performed By: #### [id number] #### [facility] [address] [place] [address] Dr. Aleah Peres Performed by: Comment Normal [facility] Comment on above: Result Comment: Caitlyn Crenshaw, Manager [employer] (ASCP) Performed at: BA Performed By: #### [id number] #### [facility] [address] [place] [address] Dr. Aleah Peres Recommendation: Comment Abnormal [facility] Comment on above: Result Comment: Sugg est follow up as clinically appropriate. Performed at: WB Performed By: #### [id number] #### [facility] [address] [place] [address] Dr. Aleah Peres Reflex Criteria: Comment Normal [facility] Comment on above: Result Comment: The HPV DNA reflex criteria were not met with this specimen result therefore, no HPV testing was performed. . Performed at: WB Performed By: #### [id number] #### [facility] [address] [place] [address] Dr. Aleah Peres Specimen adequacy: Comment Normal [facility] Comment on above: Result Comment: Sati sfactory for evaluation. Endocervical and/or squamous metaplastic cells (endocervical component) are present. Performed at: WB Performed By: #### [id number] #### [facility] [address] [address] [address] Aleah Peres Covid-19 PCR ([facility])on 05-25 SARS-CoV-2 (COVID-19) RNA MARY ELLEN+probe Ql (Unsp spec) Not detected Normal NOT DETECTED [facility] Comment on above: Result Comment: [...] for this test is supported by the [place] of [employer] and Human Service's declaration that [...] used). Performed By: #### P REGQNT #### [facility] [address] [place] [address] Dr. Aleah Peres Vital Signs Date Time Vital Sign Value Performing Clinician Suzannei lity 09-14-2024 10:29-0500 Body height 160 cm Los Hollins MD Work Phone: [employer] 09-14-2024 10:29-0500 Body mass index (BMI) [Ratio] 32.24 kg/m2 Los Hollins MD Work Phone: [facility] 09-14-2024 10:29-0500 Body weight 82.56 kg Los Hollins MD Work Phone: [facility] 09-14-2024 10:29-0500 Diastolic blood pressure 59 mm[Hg] Los Hollins MD Work Phone: [facility] 09-14-2024 10:29-0500 Heart rate 80 /min Los Hollins MD Work Phone: [facility] 09-14-2024 10:29-0500 Systolic blood pressure 97 mm[Hg] Los Hollins MD Work Phone: [facility] 09-11-2024 11:24-0500 Body mass index (BMI) [Ratio] 31.58 kg/m2 Amy Dobbins PA Work Phone: [facility] 09-11-2024 11:24-0500 Body weight 82.16 kg Amy Dobbins PA Work Phone: [facility] 09-11-2024 11:24-0500 Diastolic blood pressure 70 mm[Hg] Amy Dobbins PA Work Phone: [facility] 09-11-2024 11:24-0500 Systolic blood pressure 98 mm[Hg] Amy Dobbins PA Work Phone: [facility] 08-14-2024 12:05-0500 Body mass index (BMI) [Ratio] 31.91 kg/m2 Andrzej Ayesha DO Work Phone: [facility] 08-14-2024 12:05-0500 Body weight 83.01 kg Andrzej Ayesha DO Work Phone: [facility] 08-14-2024 12:05-0500 Diastolic blood pressure 60 mm[Hg] Andrzej Ayesha DO Work Phone: [facility] 08-14-2024 12:05-0500 Systolic blood pressure 110 mm[Hg] Andrzej Ayesha DO Work Phone: [facility] 07-16-2024 10:25-0500 Body mass index (BMI) [Ratio] 30.71 kg/m2 [place] PA Work Phone: [facility] 07-16-2024 10:25-0500 Body weight 79.89 kg Nome PA Work Phone: [facility] 07-16-2024 10:25-0500 Diastolic blood pressure 70 mm[Hg] Nome PA Work Phone: [facility] 07-16-2024 10:25-0500 Systolic blood pressure 120 mm[Hg] Mis PA Work Phone: [facility] 06-07-2024 13:39-0500 Body mass index (BMI) [Ratio] 31.35 kg/m2 Nom Nurse [facility] 06-07-2024 13:39-0500 Body weight 81.56 kg [facility] Nurse [facility] 06-07-2024 13:39-0500 Diastolic blood pressure 70 mm[Hg] [facility] Nurse [facility] 06-07-2024 13:39-0500 Systolic blood pressure 118 mm[Hg] [facility] Nurse [facility] 05-31-2024 09:40-0500 Body mass index (BMI) [Ratio] 30.86 kg/m2 Mis PA Work Phone: [facility] 05-31-2024 09:40-0500 Body weight 80.29 kg Nome PA Work Phone: [facility] 05-31-2024 09:40-0500 Diastolic blood pressure 72 mm[Hg] Mis PA Work Phone: [facility] 05-31-2024 09:40-0500 Systolic blood pressure 118 mm[Hg] Mis PA Work Phone: [facility] 08-31-2023 13:43-0500 Body mass index (BMI) [Ratio] 33.2 kg/m2 Andrzej Ayesha DO Work Phone: [facility] 08-31-2023 13:43-0500 Body weight 86.36 kg Andrzej Ayesha DO Work Phone: [facility] 08-31-2023 13:43-0500 Diastolic blood pressure 70 mm[Hg] Andrzej Ayesha DO Work Phone: [facility] 08-31-2023 13:43-0500 Systolic blood pressure 114 mm[Hg] Andrzej Ayesha DO Work Phone: [facility] Healthcare Encounters Encounter Date Encounter Type Care Provider Facility Start: 09-14-2024 End: 09-14-2024 Office consultation new/estab patient 60 min Los Hollins MD Work Phone: [facility] Comment on above: 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) Start: 09-14-2024 End: 09-14-2024 Orders Only Sharla Dunham RN [facility] Comment on above: Short cervix affecti ng (Primary Dx); Encounter for repeat ultrasound of pyelectasis, antepartum, single or unspecified fetus Start: 09-13-2024 End: 09-14-2024 Chart abstracting Los Hollins MD Work Phone: [facility] Start: 09-11-2024 End: 09-11-2024 ambulatory AMY DOBBINS Not Available Start: 09-11-2024 End: 09-11-2024 Office outpatient visit 15 minutes Amy VILLATORO Work Phone: [facility] Comment on above: Second trimester pre gnancy; 22 weeks gestation of ; Diabetes mellitus screening; BV (bacterial vaginosis) Start: 09-11-2024 End: 09-11-2024 ambulatory ANDRZEJ AYESHA Not Available Start: 08-30-2024 End: 09-01-2024 Clinisync Result Encounter Andrzej Ayesha DO Work Phone: [facility] External Department Unsolicited Start: 08-30-2024 End: 09-01-2024 Clinisync Result Encounter Andrzej Ayesha DO Work Phone: [facility] External Department Unsolicited Start: 08-28-2024 End: 08-28-2024 ambulatory ANDRZEJ AYESHA Not Available Start: 08-14-2024 End: 08-14-2024 Bamboo flowsheet Andrzej Ayesha DO Work Phone: [facility] Start: 08-14-2024 End: 08-14-2024 Bamboo flowsheet Andrzej Ayesha DO Work Phone: [facility] Start: 08-14-2024 End: 08-14-2024 Office outpatient visit 15 minutes Andrzej Ayesha DO Work Phone: [facility] Comment on above: 18 weeks gestation o f ; Second trimester ; Screening, , for anatomic survey; Other headache syndrome; Constipation, unspecified constipation type Start: 08-14-2024 End: 08-14-2024 ambulatory ANDRZEJ AYESHA Not Available Start: 08-01-2024 End: 08-01-2024 ambulatory ANDRZEJ AYESHA Not Available Start: 07-16-2024 End: 07-16-2024 Bamboo flowsheet Amy VILLATORO Work Phone: [facility] Start: 07-16-2024 End: 07-24-2024 Bamboo flowsheet Amy VILLATORO Work Phone: [facility] Start: 07-16-2024 End: 07-24-2024 Clinisync Result Encounter Amy VILLATORO Work Phone: [facility] External Department Unsolicited Start: 07-16-2024 End: 07-16-2024 ambulatory AMY DOBBINS Not Available Start: 07-16-2024 End: 07-16-2024 Patient encounter procedure Amy VILLATORO Work Phone: [facility] Healthcare Start: 07-16-2024 End: 07-16-2024 Periodic preventive med est patient 18-39 yrs Amy VILLATORO Work Phone: [facility] Comment on above: Screening, , for anatomic survey; Well woman exam with routine gynecological exam; 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; Second trimester ; Encounter for screening for cervical length Start: 06-14-2024 End: 06-14-2024 Clinisync Result Encounter Andrzej Ayesha DO Work Phone: [facility] External Department Unsolicited Start: 06-14-2024 End: 06-14-2024 Clinisync Result Encounter Andrzej Ayesha DO Work Phone: [facility] External Department Unsolicited Start: 06-07-2024 End: 06-07-2024 Office outpatient visit 5 minutes [facility] Ayesha Nurse [facility] Comment on above: GA: 9w1d Start: 06-07-2024 End: 06-07-2024 ambulatory ANDRZEJ AYESHA Not Available Start: 05-31-2024 End: 05-31-2024 Bamboo flowsheet Amy Dobbins PA Work Phone: [facility] Start: 05-31-2024 End: 05-31-2024 Bamboo flowsheet Amy VILLATORO Work Phone: [facility] Start: 05-31-2024 End: 05-31-2024 ambulatory AMY DOBBINS Not Available Start: 05-31-2024 End: 05-31-2024 Office outpatient visit 15 minutes Amy VILLATORO Work Phone: [facility] Comment on above: 8 weeks gestation of ; Cramping affecting , antepartum Start: 03-06-2024 End: 03-06-2024 ambulatory PAM MENJIVAR Not Available Start: 03-06-2024 End: 03-06-2024 Patient encounter procedure Navneet Rodriguez DO Work Phone: [facility] Comment on above: Encounter for pre-em ployment drug testing (Primary Dx) Start: 11-30-2023 End: 11-30-2023 ambulatory AMY DOBBINS Not Available Start: 10-12-2023 End: 10-12-2023 ambulatory ANDRZEJ AYESHA Not Available Start: 09-28-2023 End: 09-28-2023 ambulatory ANDRZEJ AYESHA Not Available Start: 09-14-2023 End: 09-14-2023 ambulatory AMY DOBBINS Not Available Start: 08-31-2023 End: 08-31-2023 Office outpatient visit 15 minutes Andrzej Hodge DO Work Phone: [facility] Comment on above: Third trimester preg hanh Start: 11-10-2022 End: 11-10-[address] ALEXIA BARRETT . Facility: Start: 10-22-2022 End: 10-23-2022 ambulatory NATASHA CAMARA . Facility: Start: 10-08-2022 End: 10-09-2022 ambulatory ALEXIA BARRETT Facility:[facility] Start: 10-08-2022 End: 10-08-[address] ALEXIA BARRETT . Facility: Start: 10-06-2022 End: 10-07-[address] ALEXIA BARRETT . Facility: Start: 09-17-2022 Encounter for other preprocedural examination DR ANDRZEJ HODGE . [facility] Start: 09-15-2022 End: 09-16-2022 ambulatory ANDRZEJ HODGE Facility:[facility] Start: 09-15-2022 End: 09-15-[address] ANDRZEJ HODGE . Facility: Start: 09-14-2022 End: 09-15-[address] ANDRZEJ HODGE . Facility: Start: 09-14-2022 End: 09-15-2022 Encounter for other preprocedural examination DR ANDRZEJ HODGE . Facility: Start: 09-13-2022 End: 09-14-[address] ALEXIA BARRETT . Facility:[facility] Start: 08-16-2022 End: 08-16-2022 ambulatory STEVEN ARELLANO Facility:[facility] Start: 07-21-2022 End: 07-21-[address] ALEXIA BARRETT . Facility: Start: 06-07-2022 End: 06-08-[address] MAGDA MARTINEZ Facility: Procedures Date Procedure Procedure Detail Performing Clinician Start: 09-11-2024 Urnls dip stick/tabl et rgnt non-auto w/o micrscp Amy Dobbins PA Work Phone: Start: 08-30-2024 AFP, SERUM, OPEN SPI NA BIFIDA Andrzej Ayesha DO Work Phone: Start: 08-14-2024 Urnls dip stick/tabl et rgnt non-auto w/o micrscp Andrzej Ayesha DO Work Phone: Start: 07-16-2024 Urnls dip stick/tabl et rgnt non-auto w/o micrscp Amy VILLATORO Work Phone: Start: 07-16-2024 IGP,APTIMA HPV,AGE GDLN Amy VILLATORO Work Phone: Start: 07-16-2024 Microscopic observat ion [Identifier] in Cervix by Cyto stain Los Hollins MD Work Phone: Start: 06-14-2024 Antibody rubella Not In System Ref Prov Start: 06-14-2024 BOX TEST Andrzej Fazi o DO Work Phone: Start: 06-07-2024 Urnls dip stick/tabl et rgnt non-auto w/o micrscp Andrzej Ayesha DO Work Phone: Start: 08-31-2023 Urnls dip stick/tabl et rgnt non-auto w/o micrscp Andrzej Ayesha DO Work Phone: Start: 11-10-2022 Cytp cerv/vag auto t hin layer prep mnl screen Andrzej Ayesha DO Work Phone: Plan of Treatment Date Care Activity Detail Author Start: 07-16-2027 Screening for malignant neoplasm of cervix [facility] Start: 09-14-2025 Adult BMI Screening [facility] Start: 09-14-2025 Tobacco Screening [facility] Start: 09-14-2025 End: 09-14-2025 US MFM with or without consult US MFM with or without consult Imaging Routine Short cervix affecting Encounter for repeat ultrasound of pyelectasis, antepartum, single or unspecified fetus Expected: 09/14/2025 (Approximate), Expires: 09/14/2025 [facility] Work Phone: Comment on above: Expected: 09/14/2025 (Approximate), Expires: 09/14/2025 Start: 10-23-2024 End: 10-23-2024 Patient encounter procedure 10/23/2024 2:15 PM EDT Appointment [facility] [address] [place] [id number] [facility] Start: 10-09-2024 End: 10-09-2024 Patient encounter procedure 10/09/2024 11:10 AM EDT Routine [facility] [address] [place] [address] Andrzej Hodge DO [address], [place] [id number] [facility] Start: 09-14-2024 End: 09-14-2024 Patient encounter procedure 09/14/2024 11:30 AM EST Office Visit [facility] [address] [facility] [place] [address] Los Hollins [facility] [address] [facility] [address] [place] [address] Arrived [facility] Comment on above: Arrived Start: 09-12-2024 End: 09-12-2024 Patient encounter procedure 09/12/2024 10:30 AM EST Routine [facility] [address] [place] [address] Amy Dobbins PA [address] [place], [place] [phone] [facility] Start: 09-11-2024 End: 09-11-2025 CBC panel - Blood by Automated count CBC Lab Routine Diabetes mellitus screening Expected: 09/11/2024 (Approximate), Expires: 09/11/2025 [facility] Work Phone: Comment on above: Expected: 09/11/2024 (Approximate), Expires: 09/11/2025 Start: 09-11-2024 End: 09-11-2025 Measurement of glucose 1 hour after glucose challenge for glucose tolerance test Glucose tolerance, 1 hour Lab Routine Diabetes mellitus screening Expected: 09/11/2024 (Approximate), Expires: 09/11/2025 [facility] Comment on above: Expected: 09/11/2024 (Approximate), Expires: 09/11/2025 Start: 09-11-2024 End: 09-11-2024 Patient encounter procedure 09/11/2024 10:20 AM EST Routine [facility] [address] [place] [phone] Amy Dobbins PA [address] [place], [place] [phone] [facility] Start: 09-11-2024 End: 09-11-2024 Professional / ancillary services management 09/11/2024 10:00 AM EST Ancillary Procedure [facility] [address] [place] [phone] [facility] Start: 08-28-2024 End: 08-28-2024 Professional / ancillary services management 08/28/2024 1:00 PM EST Ancillary Procedure [facility] [address] [place] [phone] [facility] Start: 08-14-2024 End: 10-12-2024 Alpha fetoprotein, maternal Alpha fetoprotein, maternal Lab Routine Screening, , for anatomic survey Expected: 08/14/2024 (Approximate), Expires: 10/12/2024 [facility] Comment on above: Expected: 08/14/2024 (Approximate), Expires: [...] EST Ancillary Procedure [facility] [address] [place] [phone] [facility] Start: 07-16-2024 End: 08-16-2024 Alpha fetoprotein, maternal Alpha fetoprotein, maternal Lab Routine Second trimester Expected: 07/16/2024 (Approximate), Expires: 08/16/2024 [facility] Healthcare Comment on above: Expected: 07/16/2024 (Approximate), Expires: 08/16/2024 Start: 07-16-2024 End: 07-16-2025 US for US OB ANATOMY SINGLE W US OB CERVICAL LENGTH Imaging Routine Screening, , for anatomic survey Second trimester Expected: 07/16/2024 (Approximate), Expires: 07/16/2025 [facility] Comment on above: Expected: 07/16/2024 (Approximate), Expires: 07/16/2025 Start: 07-16-2024 End: 07-16-2025 US Pelvis transvaginal US OB transvaginal Imaging Routine Encounter for screening for cervical length Expected: 07/16/2024 (Approximate), Expires: 07/16/2025 [facility] Comment on above: Expected: 07/16/2024 (Approximate), Expires: 07/16/2025 Start: 07-09-2024 End: 07-09-2024 Patient encounter procedure 07/09/2024 2:50 PM EST Routine [facility] [address] [place] [phone] Andrzej Hodge DO [address] [place] [address] [facility] Start: 06-07-2024 End: 06-07-2025 [...] first trimester Expected: 06/07/2024 (Approximate), Expires: 06/07/2025 [facility] Healthcare Comment on above: Expected: 06/07/2024 (Approximate), Expires: 06/07/2025 Start: 06-07-2024 End: 06-07-2024 ambulatory 06/07/2024 1:30 PM EST Initial [facility] [address] [place] [phone] [facility] Start: 06-07-2024 End: 06-07-2024 Professional / ancillary services management 06/07/2024 1:00 PM EST Ancillary Procedure [facility] [place] [address] [facility] Start: 05-21-2024 End: 05-21-2024 Patient encounter procedure 05/21/2024 11:00 AM EDT Office Visit [facility] [address] [place] [phone] Amy Dobbins PA [address] [place] [address] [facility] Start: 03-25-2024 Influenza vaccination Influenza Vacc ine [facility] Start: 09-14-2023 End: 09-14-2023 Patient encounter procedure 09/14/2023 3:50 PM EST Routine [facility] [address] [place] [address] Amy Dobbins PA [address] [place] [address] [facility] Start: 2018 DTaP,Tdap and Td Vaccines (1 - Tdap) DTaP,Tdap and Td Vaccines (1 - Tdap) [facility] Start: 2017 Adult BMI Follow Up Plan Adult BMI Follow Up Plan [facility] Start: 2017 Adult BMI Screening Adult BMI Screen ing [facility] Start: 2011 Depression Screening Depression Scre ening [facility] Start: 2011 Tobacco Screening Tobacco Screening [facility] Bacteria identified in Urine by Culture Urine culture Microbiology Routine Missed menses Ordered: 06/07/2024 [facility] Comment on above: Ordered: 06/07/2024 Bacteria identified in Urine by Culture Urine culture Microbiology Routine BV (bacterial vaginosis) Ordered: 09/11/2024 [facility] Comment on above: Ordered: 09/11/2024 CBC W Auto Differential panel - Blood CBC and differential Lab Routine Missed menses , unspecified gestational age Ordered: 06/07/2024 [facility] Comment on above: Ordered: 06/07/2024 CHLAMYDIA TRACHOMATI S (GENITO/STI) CHLAMYDIA TRACHOMATIS (GENITO/STI) Lab Routine Second trimester Ordered: 07/16/2024 [facility] Comment on above: Ordered: 07/16/2024 Cytology Cervical or vaginal smear or scraping study Pap Smear Pathology and Cytology Routine Well woman exam with routine gynecological exam 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 Second trimester Ordered: 07/16/2024 [facility] Work Phone: Comment on above: Ordered: 07/16/2024 Hemoglobin A1c/Hemoglobin.total in Blood Hemoglobin A1c Lab Routine Missed menses , unspecified gestational age Ordered: 06/07/2024 [facility] Comment on above: Ordered: 06/07/2024 Hepatitis B virus surface Ag [Presence] in Serum or Plasma by Immunoassay Hepatitis B surface antigen Lab Routine Missed menses , unspecified gestational age Ordered: 06/07/2024 [facility] Comment on above: Ordered: 06/07/2024 Hepatitis C virus Ab [Presence] in Serum or Plasma by Immunoassay Hepatitis C antibody Lab Routine Missed menses , unspecified gestational age Ordered: 06/07/2024 [facility] Comment on above: Ordered: 06/07/2024 HIV-1/HIV-2 antigen/antibody combination immunoassay HIV-1 and HIV-2 antibodies Lab Routine Missed menses , unspecified gestational age Ordered: 06/07/2024 [facility] Comment on above: Ordered: 06/07/2024 Neisseria gonorrhoea e DNA [Presence] in Unspecified specimen by MARY ELLEN with probe detection Neisseria gonorrhea DNA probe, direct Lab Routine Second trimester Ordered: 07/16/2024 [facility] Comment on above: Ordered: 07/16/2024 Reagin Ab [Presence] in Serum by RPR RPR Lab Routine Missed menses , unspecified gestational age Ordered: 06/07/2024 [facility] Comment on above: Ordered: 06/07/2024 Rubella antibody, IgG Rubella an tibody, IgG Lab Routine Missed menses , unspecified gestational age Ordered: 06/07/2024 [facility] Comment on above: Ordered: 06/07/2024 SURESWAB(R) ADVANCED VAGINITIS PLUS, TMA SURESWAB(R) ADVANCED VAGINITIS PLUS, TMA Pathology and Cytology Routine Second trimester Ordered: 07/16/2024 [facility] Comment on above: Ordered: 07/16/2024 Payers Date Payer Category Payer [facility] Managed Care - Other [facility] [id number] 2022 Medicaid [id number] 2022 Medicaid [id number] 1999 Unknown [id number] 2.16.840.1.229655.3.579.2. 593 1999 Unknown [id number] 2.16.840.1.997839.3.579.2. 593 1999 Unknown [id number] 2.16.840.1.442107.3.579.2. 593 1999 Unknown [id number] 2.16.840.1.323146.3.579.2. 593 1999 Unknown [id number] 2.16.840.1.124724.3.579.2. 593 1999 Unknown [id number] 2.16.840.1.118396.3.579.2. 593 1999 Unknown [id number] 2.16.840.1.522588.3.579.2. 593 1999 Unknown [id number] 2.16.840.1.562586.3.579.2. 593 1999 Unknown [id number] 2.16.840.1.364688.3.579.2. 593 1999 Unknown [id number] 2.16.840.1.979347.3.579.2. 593 1999 Unknown [id number] 2.16.840.1.704814.3.579.2. 1259 1999 Unknown [id number] 2.16.840.1.099982.3.579.2. 1259 1999 Unknown [id number] 2.16.840.1.118639.3.579.2. 1259 1999 Unknown [id number] 2.16.840.1.250001.3.579.2. 9 1999 Unknown [id number] 2.16.840.1.003923.3.579.2. 1259 1999 Unknown [id number] 2.16.840.1.189261.3.579.2. 9 1999 Unknown [id number] 2.16.840.1.311100.3.579.2. 1259 1999 Unknown [id number] 2.16.840.1.178587.3.579.2. 9 1999 Unknown [id number] 2.16.840.1.851585.3.579.2. 9 1999 Unknown [id number] 2.16.840.1.763139.3.579.2. 9 1999 Unknown [id number] 2.16.840.1.918117.3.579.2. 1259 1999 Unknown [id number] 2.16.840.1.283157.3.579.2. 9 1999 Unknown [id number] 2.16.840.1.607273.3.579.2. 9 1999 Unknown [id number] 2.16.840.1.740529.3.579.2. 1286 1999 Unknown [id number] 2.16.840.1.094666.3.579.2. 1286 1959 Unknown [id number] 1959 Unknown [id number] Social History Date Type Detail Facility Start: 04-18-2023 End: 09-13-2024 Tobacco smoking status CAIS Never smoked tobacco [facility] Start: 08-31-2023 End: 09-14-2024 Alcohol intake Lifetime non-drinker (finding) [facility] Start: 06-13-2023 End: 09-14-2024 History of Social function [facility] Start: 06-13-2023 End: 09-14-2024 Tobacco use panel [facility] Start: 04-18-2023 Alcohol Comment caffeine: none [facility] Start: 02-17-2023 [facility] Start: 2000 Sex Assigned At Not on file [facility] Start: 09-13-2024 Sex Female (finding) [facility] Within the past 12 months we worried whether our food would run out before we got money to buy more. Never True [facility] Clinical Notes 09-15-2022 to 09-14-2024 Amy Vila LPN - 09/14/2024 11:30 AM Roseanne Hollins MD - 09/14/2024 11:30 AM SHAUNA Hammonsd - 09/11/2024 10:20 AM Chloe Hare LPN - 08/14/2024 10:50 AM EST Note Date & Type Note Facility 09-14-2024 History of Present illness Narrative Headache/epigastric pain/blurry vision/swelling? No Cramping/contractions? No Abnormal vaginal discharge? No Spotting/vaginal bleeding? No Loss or gush of fluid like your water may have broken? No Do you have cats at home? No Do you change the litter box (reason: risk of toxoplasmosis)? N/A Genetic testing done this here or other office? Yes Have you been seen here at [facility] in a previous ? No Recent ER visits or hospitalizations? ER visit within the last month, was vomiting blood (was old it was just irritation from vomiting so much) Bring blood sugar log or meter with you today? (Please bring them with you for every visit at [facility]) N/A Flu vaccine (May-September)? Npo Any concerns that you would like me to mention to the provider today? No REASON FOR CONSULTATION: Short cervix. HISTORY OF PRESENT ILLNESS: Alexandra Higgins is a pleasant 24 y.o. G 3 P0 111. at 23w2d due on Estimated Date of Delivery: 01/09/25 . Patient was seen today due to the following 1. History of premature rupture membranes at 36 weeks and 6 days gestation. Patient delivery at 37 weeks gestation. 2. Short cervix at her OB office and was started on vaginal progesterone therapy. On today's ultrasound cervical length of 2.6 cm. 3. Left-sided pyelectasis. Low risk cell free DNA testing results. Male fetus. Currently the patient has no complaints. The patient denies nausea, vomiting, abdominal pain, vaginal bleeding, SOB or chest pain. Patient's PMH/PSH,SH,PSYCH Hx, MEDs, ALLERGIES, and ROS were all reviewed and updated in the appropriate sections. Patient Active Problem List Diagnosis Short cervix affecting with delivery Past Medical History: Diagnosis Date LGSIL on Pap smear of cervix PAST OBSTETRICAL HISTORY: OB History 3 Para 1 Term 1 AB 1 Living 1 SAB 1 IAB Ectopic Multiple Live Births 1 SURGICAL HISTORY: Past Surgical History: Procedure Laterality Date BREAST BIOPSY Left DILATION AND CURETTAGE OF UTERUS 09/15/2022 DILATION AND CURETTAGE OF UTERUS 10/08/2022 ALLERGIES: Allergies Allergen Reactions Pollen Extracts Eye Swelling CURRENT MEDICATIONS: Current Outpatient Medications: [id number] AC-DHA ORAL, Take by mouth., Disp: , Rfl: progesterone (PROMETRIUM) 200 mg capsule, Take 1 capsule (200 mg total) by mouth in the morning., Disp: , Rfl: docusate sodium (COLACE) 100 mg capsule, Take 1 capsule (100 mg total) by mouth in the morning and 1 capsule (100 mg total) before bedtime. (Patient not taking: Reported on 09/14/2024), Disp: , Rfl: magnesium oxide (MAGOX) 400 mg tablet, Take 1 tablet (400 mg total) by mouth in the morning. (Patient not taking: Reported on 09/14/2024), Disp: , Rfl: metroNIDAZOLE (FLAGYL) 500 mg tablet, Take 1 tablet (500 mg total) by mouth 3 (three) times a day. (Patient not taking: Reported on 09/14/2024), Disp: , Rfl: FAMILY/GENETIC HISTORY: No family history of VTE, cardiac defects and mental retardation . SOCIAL HISTORY:Patient denies tobacco use, alcohol use, or drug use. RECENT HOSPITALIZATION: none I did review all the labs results available in addition to labs which were ordered by the primary care physician, and the other consultants, we search on [employer] and all the available care everywhere epic I did review all the imaging studies of the patient available on EMR, ordered by the primary care physician and the other taxation consultant HABITS: Patient activity no restrictions, diet no restrictions REVIEW OF SYSTEM: Head and Neck: Negative for any dizziness and headaches. Cardiovascular and Respiratory System: Denies any chest pain, shortness of breath, and coughing. Abdominal and System: Denies any abdominal pain, nausea, vomiting, vaginal bleeding, and vaginal discharge Social Determinants of Health Financial Resource Strain: n Food Insecurity: n Transportation Needs: n Physical Activity: y Social Connections: y Intimate Partner Violence: n Housing Stability: y PHYSICAL EXAMINATION: BP 97/59 (BP Site: Left Arm, BP Postition: Sitting) Pulse 80 Ht 160 cm (5' 3 ) Wt 82.6 kg (182 lb) LMP 04/04/2024 BMI 32.24 kg/m . Gravid abdomen, Respirations not labored. Well oriented time place person, normal gait MEDICAL DECISION MAKING DISCUSSION: pyelectasis. We informed the patient that the pyelectasis is a dilatation of the pelvis, which is the first anatomical structure in the kidney that receives urine from the parenchyma. Most common cause of pyelectasis is a transient obstruction at the urethro pelvic junction or due to reflux. Isolated pyelectasis has also been associated with trisomy 21; however, it has been labeled as a soft marker with only 1.5 fold increase in the back ground risk. The patient should followed up by a growth ultrasound around 32 weeks gestation when renal pelvis will be measured again. If the renal pelvises are still dilated, a formal Pediatrics consult should be done antenatally to help the patient's gear up in the post lan period with this condition. We further discussed short cervical length. Patient does not meet the criteria for cerclage. Patient was should continue her vaginal progesterone therapy until 36 weeks gestation. Patient is still considered low risk and can be delivered at her local hospital. RECOMMENDATION: 1. Cervical length of 2.6 cm seen. 2. Patient does not meet the criteria for cerclage. 3. Repeat evaluation in 4 weeks and again at 10 weeks for pyelectasis. 4. InCase pyelectasis resolved by 32-34 weeks gestation no further testing is necessary. 5. InCase pyelectasis persists beyond 34 weeks gestation, please notify pediatricians at the time of delivery of the findings so that appropriate 6. Patient is low risk and can be delivered at her local hospital. DISPOSITION: At this point the patient is in complete care of her barrel endshake adjuster. Patient does have ultrasound scheduled with us. Thank you for allowing me to participate in Alexandra Higgins . If there any questions please do not hesitate to contact us. Sincerely, LOS HOLLINS MD documented in this encounter [facility] 09-11-2024 History of Present illness Narrative Reason for Appointment: Patient ID: Alexandra Higgins is a 24 y.o. female who presents for Routine Visit Patient presents today for Return OB appointment. MEDICATIONS Current Outpatient Medications Medication Instructions docusate sodium (COLACE) 100 mg, Oral, 2 times daily PRN magnesium oxide (MAG-OX) 400 mg, Oral, Daily metroNIDAZOLE (FLAGYL) 500 mg, Oral, 2 times daily, Do not drink alcohol while taking this medication MV-Min-Fe Fum-FA-DHA (CENTRUM SPECIALIST PO) 1 each, [...] reviewed. Vitals: Estimated body mass index is 31.58 kg/m as calculated from the following: Height as of 11/10/22: 5' 3.5 . Weight as of this encounter: 181 lb 1.9 oz. BP: 98/70 Patient's last menstrual period was 04/04/2024. ASSESSMENT & PLAN ICD-10-CM 1. Second trimester Z34.92 POCT urinalysis dipstick manually resulted 2. 22 weeks gestation of Z3A.22 3. Diabetes mellitus screening Z13.1 CBC Glucose tolerance, 1 hour CBC Glucose tolerance, 1 hour 4. BV (bacterial vaginosis) N76.0 metroNIDAZOLE (Flagyl) 500 MG tablet B96.89 Urine culture Return OB: Patient presents today for a routine obstetrics appointment. Patient is currently 22w6d . Patient states she is doing well but has complaints of being tired due to current . Orders Placed This Encounter Procedures Urine culture CBC Glucose tolerance, 1 hour POCT urinalysis dipstick manually resulted Follow Up: Patient is to return to office in 4 week for routine OB appointment. Patient had scan today to evaluate shortened cervix, she was started on progesterone, prelim report today shows estimated cervical length of 2.0 cm. We will refer patient to [facility] for further evaluation. Pt also complains of odor with discharge with progesterone, we will send in flagyl Documented by SHAUNA Rizvi on behalf of: SHAUNA Rizvi documented in this encounter [facility] 08-14-2024 History of Present illness Narrative Reason for Appointment: Patient ID: [...] nursing note reviewed. Exam conducted with a labor economics teacher present. Vitals: Estimated body mass index is [...] by Sharon Hare LPN on behalf of: Andrzej Hodge DO documented in this encounter [facility] 07-16-2024 History of Present illness Narrative Reason for Appointment: Patient ID: [...] nursing note reviewed. Exam conducted with a labor economics teacher present. Vitals: Estimated body mass index is [...] obtained without difficulty [facility]. Orders Placed This [...] Rizvi documented in this encounter [facility] 06-07-2024 History of Present illness Narrative Reason for Appointment: Patient ID: [...] or undercooked meat, and stay away from [facility]. Patient has also been advised to [...] Brianna Perry LPN documented in this encounter [facility] 05-31-2024 History of Present illness Narrative Reason for Appointment: Patient ID: Mikiawnosofie Higgins is a 23 y.o. female who [...] of: SHAUNA Rizvi documented in this encounter [facility] 03-06-2024 History of Present illness Narrative Pt presents today for a pre-employment drug screen, BAT, Physical Exam, Audiogram, and PFT for [place]. Pt verified by photo ID. documented in this encounter [facility] 08-31-2023 History of Present illness Narrative Reason for Appointment: Patient ID: [...] nursing note reviewed. Exam conducted with a labor economics teacher present. Vitals: Estimated body mass index is [...] by Sharon Hare LPN on behalf of: Andrzej Hodge DO documented in this encounter [facility] 09-15-2022 Note EXAMINATION: US PREG TV [...] by: ASHLEY NOEL Date: 2022-09-15 07:41 [facility] 09-15-2022 Note OPERATIVE NOTE OPERATION DATE: 09/15/2022 PROCEDURE: Suction D AND C. PREOPERATIVE DIAGNOSIS: First trimester missed at 10 weeks. POSTOPERATIVE DIAGNOSIS: First trimester missed at 10 weeks. ANESTHESIA: General. SURGEON: Andrzej Hodge D.O. MANAGER OF ADMINISTRATION: None. FINDINGS: Products of conception. SPECIMEN: Products [...] products of conception were removed using an 9-Kittitian suction curette. Excellent hemostasis was noted. The patient tolerated the procedure well. Sponge, lap, and needle counts were correct x 2. All instruments were then removed from the patient's vagina. The patient was taken to the Recovery Room in stable condition. ?? [facility] Evaluation note Diagnosis Third trimester state, incidental [...] constipation type [facility] Second trimester state, incidental 22 weeks gestation of Diabetes mellitus screening Screening for diabetes mellitus BV (bacterial vaginosis) Unspecified vaginitis and vulvovaginitis [facility] Diagnosis Short cervix affecting - Primary Cervical shortening, unspecified as to episode of care or not applicable Encounter for repeat ultrasound of pyelectasis, antepartum, single or unspecified fetus [facility] Short cervix affecting with delivery- Primary Cervical shortening, delivered, with or without mention of antepartum condition [facility] filedocumented in this [facility] filed[facility] this [facility] filedocumented in this encounter [facility] Summary Purpose Family History No Family History Records FoundNo Family History Records FoundNo Family History Records FoundNo Family History Records Found Advance Directives No Advanced Directives Records FoundNo Advanced Directives Records FoundNo Advanced Directives Records FoundNo Advanced Directives Records Found Additional Source Comments INFORMATION SOURCE (unrecogn ized section and content) DATE CREATED AUTHOR 10/12/2022 [facility] DATE CREATED AUTHOR AUTHOR'S ORGANIZ ATION 12/08/2022 [facility] DATE CREATED AUTHOR AUTHOR'S ORGANIZ ATION 09/12/2024 [facility] DATE CREATED AUTHOR AUTHOR'S ORGANIZ ATION 09/16/2024 [facility] Reason for Visit (unrecogniz ed section and content) Reason Comments Routine Visit Reason Comments Abdominal Cramping Pt is currently preg nant @ 8 weeks. Pt complains of cramping and dehydrated w/. Reason Comments Amenorrhea Reason Comments short cervix Hx PTD 36w6d FOR RECORDS PERTAINING TO PATIENTS WHO ARE [...] BE BASED ON THE PRIMARY CLINICAL RECORDS. [facility] [employer] [facility]. provides no warranty or guarantee of the accuracy or completeness of information in this document.
[2024-10-10 12:34] LABS: Basophils Percent Auto 0.3 % (0.2-2.0); Eosinophils Percent Auto 0.4 % (0.9-7.0); Hematocrit 32.4 % (36.0-48.0); Hemoglobin 10.3 g/dL (12.0-16.0); Immature Granulocytes Abs Auto 0.03 10^3/uL (0.00-0.03); Immature Granulocytes Pct Auto 0.4 % (0.0-0.5); Lymphocytes Absolute Auto 1.7 10^3/uL (1.2-3.8); Lymphocytes Percent Auto 21.3 % (20.5-60.0); Mean Corpuscular HGB Conc 31.8 g/dL (29.9-35.2); Mean Corpuscular Hemoglobin 26.5 pg (26.7-34.0); Mean Corpuscular Volume 83.5 fL (81.0-99.0); Mean Platelet Volume 10.3 fL (9.5-13.5); Monocytes Absolute Auto 0.5 10^3/uL (0.3-0.8); Monocytes Percent Auto 6.5 % (1.7-12.0); Neutrophils Absolute Auto 5.6 10^3/uL (1.4-6.5); Neutrophils Percent Auto 71.1 % (43.0-75.0); Platelet Count 292 10^3/uL (150-450); Red Blood Count 3.88 10^6/uL (4.20-5.40); Red Cell Distribution Width 14.7 % (11.0-15.0); White Blood Count 7.8 10^3/uL (4.0-11.0)
[2024-10-10 12:42] LABS: Glucose 1 Hour 114 mg/dL (<130)
== END 2024-10-10 11:19 | disposition home or self-care (01) ==
PROVIDERS: Visit Provider Physician Assistant
DX: Z13.1 Encounter for screening for diabetes mellitus (principal)
CPT/HCPCS: 36415; 82950; 85025

== ENCOUNTER 2024-10-15 12:31 | Observation (INO) | payer MEDICAID, SELFPAY ==
--- OUTSIDE RECORDS SUMMARY | 2024-10-15 12:39 | XMS_ITS | CCD ---
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 Name Role Phone ALEXIA BARRETT Attending [...] DR NONE LISTED Primary Care Unavaila ble [employer] Unavailable KARASIK ., DR HALE Attending [...] ble Unavailable Primary Care Provider Unavailabl e Unavailable Primary Care Provider Unavailabl e LOS HOLLINS Attending Unavailable AYESHA, ANDRZEJ R Referring Unavailable AYESHA, ANDRZEJ R Referring Unavailable AYESHA, ANDRZEJ Attending Unavailable AYESHA, ANDRZEJ Referring Unavailable MIS, Attending Unavailable AYESHA, ANDRZEJ Attending Unavailable MIS, Attending Unavailable LACONISPAM Attending Unavailable MIS, MAY Attending Unavailable MIS, Attending Unavailable Allergies Allergy Classification Reported Allergen(s) Allergy Type Date of Onset Reaction(s) Facility (3 sources) [place]; Translations: [POLLEN EXTRACTS] Propensity to adverse reactions to drug 5 Eye Swelling [facility] (1 source) [place] Propensity to adverse reactions 5 [facility] Medications Current Medications Medication Drug Class(es) Dates Sig (Normalized) Sig (Original) docusate sodium 100 mg oral capsule (9 sources) Start: 08-14-2024 End: 11-12-2024 take 1 capsule by mouth twice daily as needed for constipation docusate sodium (Colace) 100 MG capsule Indications: Constipation, unspecified constipation type Take 1 capsule (100 mg) by mouth 2 (two) times a day as needed for constipation 60 capsule 5 08/14/2024 11/12/2024 Active magnesium oxide 400 mg oral tablet (9 sources) Start: 08-14-2024 End: 08-14-2025 take 1 [...] this medication. 14 tablet 09/11/2024 09/18/2024 Active [id number] AC-DHA ORAL (3 sources) [id number] AC-DHA ORAL Take by mouth. Active MV-Min-Fe Fum-FA-DHA (CENTRUM SPECIALIST PO) (19 sources) take 1 dose by mouth once in the morning MV-Min-Fe Fum-FA-DHA (CENTRUM SPECIALIST PO) Take 1 each by mouth in the morning. Active take 1 dose by mouth once in the morning MV-Min-Fe Fum-FA-DHA ([facility]) Take 1 each by mouth [...] Drug Class(es) Dates Sig (Normalized) Sig (Original) [id number] 200 actuat albuterol 0.09 mg/actuat metered dose [...] time. 0 09/21/2022 08/31/2023 Discontinued (Therapy completed) CM-Dck-DU-Whitman-3 ( Gummies/DHA & FA) 0.4-32.5 MG chewable tablet (1 source) Start: 03-03-2023 End: 08-31-2023 RZ-Ouu-WI-Whitman-3 ( Gummies/DHA & FA) 0.4-32.5 MG chewable [...] Episodic Other nutritional; endocrine; and metabolic disorders (18 sources) Obesity; Translations: [Obesity, unspecified] Onset: 10-26-2023 10-26-2023 Chronic Other and delivery including normal (14 sources) Encounter for test, result positive; Translations: [...] [22 weeks gestation of ] 09-11-2024 Episodic Residual codes; unclassified (1 source) Gestation period, 26 weeks; Translations: [26 weeks gestation of ] 10-09-2024 Episodic Spontaneous (4 sources) Incomplete spontaneous without [...] Onset: 08-17-2022 Episodic Other female genital disorders (18 sources) Disorder of female genital system; Translations: [...] UA Negative Negative - 4(70) +++ mg/dL [facility] Blood, UA Negative Negative - 50 William/mcL [facility] Clarity, UA Clear [facility] re Color, UA Yellow [facility] Glucose, UA Negative Negative - 1999(110) ++++ mg/dL [facility] Interpretation and review of laboratory results Abnormal [facility] Ketones, UA Positive Negative - 160(16) ++++ mg/dL [facility] Comment on above: 40mg/dL Leukocytes, UA Positive Negative - 500+++ Roma/mcL [facility] Comment on above: small Nitrite, UA Negative Negative - Positive [facility] pH, UA 6.5 5 - 9 [facility] Protein, UA Negative Negative - 1999(20) ++++ mg/dL [facility] Spec Grav, UA 1.025 1 - 1.03 [facility] Urobilinogen, UA 0.2 0.2 - 12 mg/dL [facility] e AFP, SERUM, OPEN SPINA BIFID Aon 09-01-2024 AFP MOM 1.38 . [facility] AFP VALUE 86.3 ng/mL . [facility] COMMENT: Comment . [facility] Comment on above: Kristi Han , Ph.D., [facility] Director References: Available Upon Request. Multiples Of Median Cutoffs For AFP Elevations Barahona 2.5 Black 2.8 IDD 2.0 Twins 4.5 Abbreviation Definitions IDD - Insulin Dep Diabetes OSBR - Open Spina Bifida Risk For further inquiries contact [email or web address] [facility] at [phone]. This test was developed and its performance characteristics determined by [employer]. It has not been cleared or approved by the Food and Drug Administration. Performed at: [facility] [address] [place], [place] [id number] [place] Worker: Marisel Lewis [facility], Phone: [phone] GEST. AGE ON COLLECTION DATE 21.1 . weeks [facility] GESTAT. AGE BASED ON LMP . [facility] Comment on above: Recalculations are n ot recommended when gestational dating by LMP and ultrasound are within 10 days. INSULIN DEP DIABETES No . [facility] INTERPRETATION Comment . [facility] Healt hcare Comment on above: Interpretation: Scre [...] Customer Services to discuss available options. The [employer] recommends amniocentesis be offered to women age 35 and older. MATER[age] [facility] [employer] MULTIPLE GESTATION No . [facility] OSBR RISK 1 IN 7620 . [facility] Healt hcare RACE Black . [facility] Culturalite e RESULTS Report . [facility] [employer] TEST RESULTS: Negative . [facility] Health care WEIGHT 183 . lbs [facility] Healthcar e N N LMP [id number] [phone] N 1 183 N N N N N Black/ [facility] [employer] US OB 14+ WEEKS ANATOMY SCAN [...] UA Negative Negative - 4(70) +++ mg/dL [facility] Blood, UA Negative Negative - 50 William/mcL [facility] Clarity, UA Clear [facility] Color, UA Yellow [facility] Glucose, UA Negative Negative - 1999(110) ++++ mg/dL [facility] Interpretation and review of laboratory results Normal [facility] Ketones, UA Negative Negative - 160(16) ++++ mg/dL [facility] Leukocytes, UA Negative Negative - 500+++ Roma/mcL [facility] Nitrite, UA Negative Negative - Positive [facility] pH, UA 7 5 - 9 [facility] [employer] Protein, UA Negative Negative - 1999(20) ++++ mg/dL [facility] Spec Grav, UA 1.02 1 - 1.03 [facility] Urobilinogen, UA 0.2 0.2 - 12 mg/dL [facility] US OB TRANSVAGINALon 025 US [...] as of 07/16/2024: 17w0d IGP,APTIMA HPV,AGE GDLNon 12 -31-2024 AGE GDLN ACOG TESTING Note . [facility] Comment on above: TESTS RESULT FLAG UN ITS REF RANGE LAB Clinician Provided Cytology Information Source.............Cervix No. of containers..01 ThinPrep Vial Age Algo ACOG Kassidy... FLAG LEGEND: L-Low Normal,H-High Normal,LL-Alert Low,HH-Alert High <-Panic Low,>-Panic High,A-Abnormal,AA-Critical Abnormal Performed at: 01 =G [facility] [id number] Cortney Arciniega MD, IGP, RFX APTIMA HPV ASCU Note . [facility] Comment on above: TESTS RESULT FLAG UN ITS REF RANGE LAB DIAGNOSIS: 02 NEGATIVE FOR INTRAEPITHELIAL LESION OR MALIGNANCY. Specimen adequacy: 02 Satisfactory for evaluation. No endocervical component is identified. Performed by: 02 Bry Segundo, Clinical Instructor ([facility]) . 02 Note: Note 02 The [...] Low,>-Panic High,A-Abnormal,AA-Critical Abnormal Performed at: [address] [facility] [address] [phone] Cortney Arciniega MD, Performed at: =G - [facility] [address] [id number] [place] Worker: Cortney Arciniega MD, Phone: [phone] Performed at: [facility] [address] [id number] [place] Worker: Cortney Arciniega MD, Phone: [phone] SPATULA-ALONE CERVIX [facility] Culturalite e Urinalysis macro (dipstick) panel (U)on 07-16-2024 Bilirubin, UA Negative Negative - 4(70) +++ mg/dL [facility] Blood, UA Negative Negative - 50 William/mcL [facility] [employer] Clarity, UA Clear [facility] Color, UA Yellow [facility] Cultural[employer] e Glucose, UA Negative Negative - 2000(110) ++++ mg/dL [facility] Interpretation and review of laboratory results Normal [facility] Ketones, UA Negative Negative - 160(16) ++++ mg/dL [facility] Leukocytes, UA Negative Negative - 500+++ Roma/mcL [facility] Nitrite, UA Negative Negative - Positive [facility] pH, UA 8.5 5 - 9 [facility] Health[facility] Protein, UA Negative Negative - 1999(20) ++++ mg/dL [facility] Spec Grav, UA 1.02 1 - 1.03 [facility] Urobilinogen, UA 0.2 0.2 - 12 mg/dL [facility] Healthcar e BOX TESTon 06-14-2024 BOX TEST SENT OUT [facility] althcare BOX1 [facility] Healthcar e BOX2 06/14/24 [facility] UNITY BOX [facility] No Panel Informationon 06-14 [facility] e Rubella IGG immune statuson 06-14-2024 Rubella immune IgG IMMUNE [facility] HCG ( test) Ql (U)o n 06-07-2024 Interpretation and review of laboratory results Abnormal [facility] Preg Test, Ur Positive Negative [facility] Urinalysis macro (dipstick) panel (U)on 06-07-2024 Bilirubin, UA Negative Negative - 4(70) +++ mg/dL [facility] Blood, UA Negative Negative - 50 William/mcL [facility] Clarity, UA Clear [facility] re Color, UA Yellow [facility] e Glucose, UA Negative Negative - 1999(110) ++++ mg/dL [facility] Interpretation and review of laboratory results Abnormal [facility] Ketones, UA Negative Negative - 160(16) ++++ mg/dL [facility] Leukocytes, UA Positive Negative - 500+++ Roma/mcL [facility] Comment on above: small Nitrite, UA Negative Negative - Positive [facility] pH, UA 7.5 5 - 9 [facility] Healthcar e Protein, UA Negative Negative - 1999(20) ++++ mg/dL [facility] Spec Grav, UA 1.02 1 - 1.03 [facility] Urobilinogen, UA 0.2 0.2 - 12 mg/dL [facility] Urinalysis macro (dipstick) panel (U)Ordered By: Shantel Rangel on 08-31-2023 Bilirubin, UA Negative Negative - 4(70) +++ mg/dL [facility] Blood, UA Negative Negative - 50 William/mcL [facility] Clarity, UA Clear [facility] Healthca re Color, UA Yellow [facility] Health[facility] e Glucose, UA Negative Negative - 2000(110) ++++ mg/dL [facility] Interpretation and review of laboratory results Abnormal [facility] Ketones, UA Positive Negative - 160(16) ++++ mg/dL [facility] Leukocytes, UA Trace Negative - 500+++ Roma/mcL [facility] Nitrite, UA Negative Negative - Positive [facility] pH, UA 7.5 5 - 9 [facility] Protein, UA Trace Negative - 1999(20) ++++ mg/dL [facility] Spec Grav, UA 1.020 1 - 1.03 [facility] Urobilinogen, UA 0.2 0.2 - 12 mg/dL [facility] PAP ACOG PANEL 2: 21 to 29on 11-17-2022 . . [facility] Comment on above: Performed By: #### [id number] #### [facility] [address] [place] [address] Dr. Aleah Peres Age Gdln ACOG Testing - [facility] Comment on above: Performed By: #### 4 [id number] #### [facility] [address] [address] [address] Aleah Peres DIAGNOSIS: Comment [facility] Comment on above: Result Comment: NEGA TIVE FOR INTRAEPITHELIAL LESION OR MALIGNANCY. Performed By: #### 4 [id number] #### [facility] [address] [address] [address] Aleah Peres Methodology: Comment [facility] Comment on above: Result Comment: This liquid based ThinPrep(R) pap test was screened with the use of an image guided system. Performed By: #### 4 [id number] #### [facility] [address] [place] [address] Dr. Aleah Peres Note: Comment [facility] Comment on above: Result Comment: The Pap smear is a screening test designed to aid in the detection of premalignant and malignant conditions of the uterine cervix. It is not a diagnostic procedure and should not be used as the sole means of detecting cervical cancer. Both false-positive and false-negative reports do occur. . Performed By: #### 4 [id number] #### [facility] [address] [place] [address] Dr. Aleah Peres Performed by: Comment Normal [facility] Comment on above: Result Comment: Annelise Martinez Clinical Instructor Performed By: #### 4 [id number] #### [facility] [address] [place] [address] Dr. Aleah Peres Reflex Criteria: Comment Normal [facility] Comment on above: Result Comment: The HPV DNA reflex criteria were not met with this specimen result therefore, no HPV testing was performed. . Performed By: #### 4 [id number] #### [facility] [address] [place] [address] Dr. Aleah Peres Specimen adequacy: Comment Normal [facility] Comment on above: Result Comment: Sati sfactory for evaluation. Endocervical and/or squamous metaplastic cells (endocervical component) are present. Performed By: #### 4 [id number] #### [facility] [address] [place] [address] Dr. Aleah Peres Cytology Cervical or vaginal smear or scraping studyon 11-10-2022 [facility] OCC BLD IMMUNO SCREENon OCCULT BLOOD Negative Normal NEGATIVE [facility] Comment on above: Performed By: #### O BSCRN #### [facility] [address] [place] [address] Dr. Aleah Peres SURGICAL PATH REPORTon 10-11 SURGICAL PATH REPORT [facility] Department of Pathology [address] [place] [phone] Name: CAMERON HIGGINS : 2000 [facility] [id number] Number: [facility] n: Admit 22 years Attending ALEXIA BARRETT Age: Provider: Ordering ALEXIA BARRETT Provider: Consulti Surgical Pathology Report ng: ACCESSION: COLLECTED DATE/TIME: RECEIVED DATE/TIME: PATHOLOGIST: [id number] 10/08/2022 12:03 EDT 10/08/2022 12:03 TOM PAVON MD Final Diagnosis Report for THE [place], [place] RETAINED PRODUCTS OF CONCEPTION: - CHORIONIC [...] Tissue pathology report for: [facility], [address] [place] [id number]; ____ Print 10/11/2022 15:01 EDT Number: Date/Time: [facility] Department of Pathology [address] [place] [phone] Name: CAMERON HIGGINS : 2000 [facility] [id number] Number: [facility] : n: Admit 22 years Attending ALEXIA BARRETT Age: Provider: Ordering ALEXIA BARRETT Provider: Consulti Surgical Pathology Report ng: ACCESSION: COLLECTED DATE/TIME: RECEIVED DATE/TIME: PATHOLOGIST: [id number] 10/08/2022 12:03 EDT 10/08/2022 12:03 EDT TOM AGUERO MD Gross Description PATHOLOGY SERVICES PROVIDED BY [employer] (CLIA #[id number]) in cooperation with [facility] at [address] [place], [place] [id number] ( CLIA #[id number]) Codes CPT CODE: 36542 ____ Print 10/11/2022 15:01 EDT Number: Date/Time: Normal [facility] Comment on above: Performed By: #### 9 [id number] #### [facility] Laboratory Services [address] [place], [place] [id number] Roller Helper: Tom Aguero MD URon 10-08-2022 , QUAL Negative Normal NEGATIVE [facility] Comment on above: Performed By: #### P REGU #### [facility] [address] [place] [address] Dr. Aleah Peres US PELVIS AND TRANSVAGon [...] PIPPA ORTEGA Date: 2022-10-06 14:55 Normal [facility] SURGICAL PATH REPORTon 09-16 SURGICAL PATH REPORT [facility] Department of Pathology [address] [place] [phone] Name: ALEXANDRA HIGGINS : 2000 [facility] [id number] Number: Gender Female [facility] [place] : n: Admit 22 years Attending ANDRZEJ HODGE Age: Provider: Ordering ANDRZEJ HODGE Provider: Consulti Surgical Pathology Report ng: ACCESSION: COLLECTED DATE/TIME: RECEIVED DATE/TIME: PATHOLOGIST: [id number] 09/15/2022 12:34 EST 09/15/2022 12:34 HENRY MOREIRA MD, LUIS ERAZO Final Diagnosis Report for [employer] [place], [place] PRODUCTS OF CONCEPTION, DILATION AND CURETTAGE: - CHORIONIC VILLI ARE PRESENT; NO SIGNIFICANT ATYPIA IS OBSERVED. - BENIGN MATERIAL DECIDUA PRESENT. - NO PARTS ARE IDENTIFIED. LUIS MOREIRA PATHOLOGIST (Electronic Signature) Date Verified 09/16/2022 LN Clinical Data PRE-OP DIAGNOSIS: Not specified POST-OP DIAGNOSIS: Missed PROCEDURES: D and C with suction SPECIMEN: Products of conception / post anesthesia care unit nurse Gross Description Labeled products of conception. Received in formalin in a suction sock are multiple irregular segments of medrano pink to red black soft tissue. The individual segments have a variable granular to partially smooth glistening membranous character. The specimen in total aggregate measures 12.5 x 7.5 x 4.0 cm. There are no grossly identifiable parts. Learning Center Coordinator sections are submitted in three cassettes. MP/ald 09/15/2022 ____ Print 09/16/2022 14:53 EST Number: Date/Time: [facility] Department of Pathology [address] [place] [phone] Name: ALEXANDRA HIGGINS : 2000 [employer] [id number] Number: Gender Female [facility] [place] : n: Admit 22 years Attending ANDRZEJ HODGE Age: Provider: Ordering ANDRZEJ HODGE Provider: Consulti Surgical Pathology Report ng: ACCESSION: COLLECTED DATE/TIME: RECEIVED DATE/TIME: PATHOLOGIST: [id number] 09/15/2022 12:34 EST 09/15/2022 12:34 EST LILLIE KHAN, LUIS ERAZO Gross Description Tissue pathology report for: [facility], [address] [place] [address]; PATHOLOGY SERVICES PROVIDED BY [employer] , [facility] (CLIA #[id number]) in cooperation with [facility] at [address] [place] [address] ( CLIA #[id number]) Codes CPT CODE: 42209 ____ Print 09/16/2022 14:53 EST Number: Date/Time: Normal [facility] Comment on above: Performed By: #### 9 [id number] #### [facility] Laboratory Services [address] [place] [address] Roller Helper: Tom Aguero MD CBC AUTO DIFFon 09-15-2022 BASO # 0.0 103/ul Normal 0.0-0.1 [facility] Comment on above: Performed By: #### C BC #### [facility] [address] [place] [address] Dr. Aleah Peres Basophils/100 WBC (Bld) 0.4 % Normal 0.2-2.0 [facility] Comment on above: Performed By: #### C BC #### [facility] [address] [place] [address] Dr. Aleah Peres EO # 0.1 103/ul Normal 0.0-0.7 [facility] Comment on above: Performed By: #### C BC #### [facility] [address] [place] [address] Dr. Aleah Peres Eosinophils/100 WBC (Bld) 1.3 % Normal 0.9-7.0 [facility] Comment on above: Performed By: #### C BC #### [facility] [address] [place] [address] Dr. Aleah Peres Erythrocyte distribution width (RBC) [Ratio] 13.8 % Normal 11.0-15.0 [facility] Comment on above: Performed By: #### C BC #### [facility] [address] [place] [address] Dr. Aleah Peres Hematocrit (Bld) [Volume fraction] 35.5 % Critically low 36.0-48.0 [facility] Comment on above: Performed By: #### C BC #### [facility] [address] [place] [address] Dr. Aleah Peres Hemoglobin (Bld) [Mass/Vol] 11.6 g/dL Critically low 12.0-16.0 [facility] Comment on above: Performed By: #### C BC #### [facility] [address] [place] [address] Dr. Aleah Peres IG # 0.03 10e3/ul Normal 0.00-0.03 [facility] Comment on above: Performed By: #### C BC #### [facility] [address] [place] [address] Dr. Aleah Peres IG % 0.4 % Normal 0.0-0.5 [facility] Comment on above: Performed By: #### C BC #### [facility] [address] [place] [address] Dr. Aleah Peres LYMPH # 2.8 103/ul Normal 1.2-3.8 [facility] Comment on above: Performed By: #### C BC #### [facility] [address] [place] [address] Dr. Aleah Peres Lymphocytes/100 WBC (Bld) 32.9 % Normal 20.5-60.0 [facility] Comment on above: Performed By: #### C BC #### [facility] [address] [place] [address] Dr. Aleah Peres MANUAL DIFF REQ NO Normal [facility] Comment on above: Performed By: #### C BC #### [facility] [address] [place] [address] Dr. Aleah Peres MCH (RBC) [Entitic mass] 26.9 pg Normal 26.7-34.0 [facility] Comment on above: Performed By: #### C BC #### [facility] [address] [place] [address] Dr. Aleah Peres MCHC (RBC) [Mass/Vol] 32.7 g/dL Normal 29.9-35.2 [facility] Comment on above: Performed By: #### C BC #### [facility] [address] [place] [address] Dr. Aleah Peres MCV (RBC) [Entitic vol] 82.4 fL Normal 81.0-99.0 [facility] Comment on above: Performed By: #### C BC #### [facility] [address] [place] [address] Dr. Aleah Peres MONO # 0.7 103/ul Normal 0.3-0.8 [facility] Comment on above: Performed By: #### C BC #### [facility] [address] [place] [address] Dr. Aleah Peres Monocytes/100 WBC (Bld) 8.6 % Normal 1.7-12.0 [facility] Comment on above: Performed By: #### C BC #### [facility] [address] [place] [address] Dr. Aleah Peres NEUT # 4.8 103/ul Normal 1.4-6.5 [facility] Comment on above: Performed By: #### C BC #### [facility] [address] [place] [address] Dr. Aleah Peres Neutrophils/100 WBC (Bld) 56.4 % Normal 43.0-75.0 [facility] Comment on above: Performed By: #### C BC #### [facility] [address] [place] [address] Dr. Aleah Peres Platelet mean volume (Bld) [Entitic vol] 9.9 fL Normal 9.5-13.5 [facility] Comment on above: Performed By: #### C BC #### [facility] [address] [place] [address] Dr. Aleah Peres PLT 316 103/ul Normal 150-450 [facility] Comment on above: Performed By: #### C BC #### [facility] [address] [place] [address] Dr. Aleah Peres RBC 4.31 106/ul Normal 4.20-5.40 [facility] Comment on above: Performed By: #### C BC #### [facility] [address] [place] [address] Dr. Aleah Peres WBC 8.4 103/ul Normal 4.0-11.0 [facility] Comment on above: Performed By: #### C BC #### [facility] [address] [place] [address] Dr. Aleah Peres PREG QUANT HCGon 09-15-2022 HCG QUANT 31537 mIU/mL Normal [facility] Comment on above: Performed By: #### P REGQNT #### [facility] [address] [place] [address] Dr. Aleah Peres HCG RANGE SEE BELOW Normal [facility] Comment on above: Result Comment: 5-50 0.2-1 WEEK 50-500 1-2 WEEKS 100-5,000 2-3 WEEKS 500-10,000 3-4 WEEKS 1,000-50,000 4-5 WEEKS 10,000-100,000 5-6 WEEKS 15,000-200,000 6-8 WEEKS 10,000-100,000 2-3 MONTHS Performed By: #### P REGQNT #### [facility] [address] [place] [address] [id number] Aleah Peres TYPE AND SCREENon 09-15-2022 TYPE AND SCREEN Negative Normal [facility] Comment on above: Performed By: #### P REGQNT #### [facility] [id number] Aleah Peres US PELVISon 09-15-2022 US PELVIS EXAMINATION: US PELVIS HISTORY: Spontaneous COMPARISON: No relevant comparison available. TECHNIQUE: Transabdominal and transvaginal sonographic examination. FINDINGS: UTERUS: Small amount of fluid within endometrial cavity. No visible retained products of conception. IMPRESSION: 1. No appreciable retained products of conception within uterine cavity. Electronically authenticated by: ASHLEY NOEL Date: 2022-09-15 15:42 Normal [facility] US PREG TVon 09-13-2022 US PREG [...] Right ovary was not identified. Normal [facility] CBC AUTO DIFFon 08-16-2022 BASO # 0.0 103/ul Normal 0.0-0.1 [facility] Comment on above: Performed By: #### C BC #### [facility] [address] [place] [address] Dr. Aleah Peres Basophils/100 WBC (Bld) 0.4 % Normal 0.2-2.0 [facility] Comment on above: Performed By: #### C BC #### [facility] [address] [place] [address] Dr. Aleah Peres EO # 0.1 103/ul Normal 0.0-0.7 [facility] Comment on above: Performed By: #### C BC #### [facility] [address] [place] [address] Dr. Aleah Peres Eosinophils/100 WBC (Bld) 1.4 % Normal 0.9-7.0 [facility] Comment on above: Performed By: #### C BC #### [facility] [address] [place] [address] Dr. Aleah Peres Erythrocyte distribution width (RBC) [Ratio] 13.6 % Normal 11.0-15.0 [facility] Comment on above: Performed By: #### C BC #### [facility] [address] [place] [address] Dr. Aleah Peres Hematocrit (Bld) [Volume fraction] 32.4 % Critically low 36.0-48.0 [facility] Comment on above: Performed By: #### C BC #### [facility] [address] [place] [address] Dr. Aleah Peres Hemoglobin (Bld) [Mass/Vol] 11.2 g/dL Critically low 12.0-16.0 [facility] Comment on above: Performed By: #### C BC #### [facility] [address] [place] [address] Dr. Aleah Peres IG # 0.02 10e3/ul Normal 0.00-0.03 [facility] Comment on above: Performed By: #### C BC #### [facility] [address] [place] [address] Dr. Aleah Peres IG % 0.3 % Normal 0.0-0.5 [facility] Comment on above: Performed By: #### C BC #### [facility] [address] [address] [address] Aleah Peres LYMPH # 2.4 103/ul Normal 1.2-3.8 [facility] Comment on above: Performed By: #### C BC #### [facility] [address] [address] [address] Aleah Peres Lymphocytes/100 WBC (Bld) 32.3 % Normal 20.5-60.0 [facility] Comment on above: Performed By: #### C BC #### [facility] [address] [place] [address] Dr. Aleah Peres MANUAL DIFF REQ NO Normal [facility] Comment on above: Performed By: #### C BC #### [facility] [address] [place] [address] Dr. Aleah Peres MCH (RBC) [Entitic mass] 26.9 pg Normal 26.7-34.0 [facility] Comment on above: Performed By: #### C BC #### [facility] [address] [place] [address] Dr. Aleah Peres MCHC (RBC) [Mass/Vol] 34.6 g/dL Normal 29.9-35.2 [facility] Comment on above: Performed By: #### C BC #### [facility] [address] [place] [address] Dr. Aleah Peres MCV (RBC) [Entitic vol] 77.9 fL Critically low 81.0-99.0 [facility] Comment on above: Performed By: #### C BC #### [facility] [address] [place] [address] Dr. Aleah Peres MONO # 0.7 103/ul Normal 0.3-0.8 [facility] Comment on above: Performed By: #### C BC #### [facility] [address] [place] [address] Dr. Aleah Peres Monocytes/100 WBC (Bld) 9.1 % Normal 1.7-12.0 [facility] Comment on above: Performed By: #### C BC #### [facility] [address] [place] [address] Dr. Aleah Peres NEUT # 4.1 103/ul Normal 1.4-6.5 [facility] Comment on above: Performed By: #### C BC #### [facility] [address] [place] [address] Dr. Aleah Peres Neutrophils/100 WBC (Bld) 56.5 % Normal 43.0-75.0 [facility] Comment on above: Performed By: #### C BC #### [facility] [address] [place] [address] Dr. Aleah Peres Platelet mean volume (Bld) [Entitic vol] 9.4 fL Critically low 9.5-13.5 [facility] Comment on above: Performed By: #### C BC #### [facility] [address] [place] [address] Dr. Aleah Peres PLT 303 103/ul Normal 150-450 [facility] Comment on above: Performed By: #### C BC #### [facility] [address] [place] [address] Dr. Aleah Peres RBC 4.16 106/ul Critically low 4.20-5.40 [facility] Comment on above: Performed By: #### C BC #### [facility] [address] [place] [address] Dr. Aleah Peres WBC 7.3 103/ul Normal 4.0-11.0 [facility] Comment on above: Performed By: #### C BC #### [facility] [address] [place] [address] Dr. Aleah Peres ER URINE PROFILEon 3 Bilirubin Ql (U) Negative Normal NEGATIVE [facility] Comment on above: Performed By: #### E RUR #### [facility] [address] [place] [address] Dr. Aleah Peres Clarity (U) CLEAR Normal CLEAR [facility] Comment on above: Performed By: #### E RUR #### [facility] [address] [place] [address] Dr. Aleah Peres Color (U) YELLOW Normal YELLOW [facility] Comment on above: Performed By: #### E RUR #### [facility] [address] [address] [address] Aleah OMALLEY A micrscopic examination will be performed if indicated. Normal [facility] Comment on above: Performed By: #### E RUR #### [facility] [address] [place] [address] Dr. Aleah Peres Glucose Ql (U) Negative Normal NEGATIVE [facility] Comment on above: Performed By: #### E RUR #### [facility] [address] [address] [address] Aleah Peres Hemoglobin Ql (U) Negative Normal NEGATIVE [facility] Comment on above: Performed By: #### E RUR #### [facility] [address] [place] [address] Dr. Aleah Peres Ketones Ql (U) Negative Normal NEGATIVE [facility] Comment on above: Performed By: #### E RUR #### [facility] [address] [place] [address] Dr. Aleah Peres LEUKOCYTES Negative Normal NEGATIVE [facility] Comment on above: Performed By: #### E RUR #### [facility] [address] [place] [address] Dr. Aleah Peres Nitrite Ql (U) Negative Normal NEGATIVE [facility] Comment on above: Performed By: #### E RUR #### [facility] [address] [place] [address] Dr. Aleah Peres pH (U) 6.0 [pH] Normal 5-9 [facility] Comment on above: Performed By: #### E RUR #### [facility] [address] [address] [address] Aleah ePres SPEC GRAVITY 1.020 Normal 1.005-<=1.025 [facility] Comment on above: Performed By: #### E RUR #### [facility] [address] [place] [address] Dr. Aleah Peres UA PROTEIN Negative Normal NEGATIVE/ TRACE [facility] Comment on above: Performed By: #### E RUR #### [facility] [address] [address] [address] Aleah Peres UR MICRO IND NOT INDICATED Normal [facility] Comment on above: Performed By: #### E RUR #### [facility] [address] [address] [address] Aleah Peres Urobilinogen Qn (U) 0.2 {Edmund'U}/dL Normal 0.2 - 1. 0 [facility] Comment on above: Performed By: #### E RUR #### [facility] [address] [place] [address] Dr. Aleah Peres PROF 14(COMP METB)on 023 Albumin [Mass/Vol] 3.0 g/dL Critically low 3.4-5.0 [facility] Comment on above: Performed By: #### C MP #### [facility] [address] [place] [address] Dr. Aleah Peres Albumin/Globulin [Mass ratio] 0.8 {ratio} Normal [facility] Comment on above: Performed By: #### C MP #### [facility] [address] [place] [address] Dr. Aleah Peres ALP [Catalytic activity/Vol] 52 U/L Normal 46-116 [facility] Comment on above: Performed By: #### C MP #### [facility] [address] [place] [address] Dr. Aleah Peres ALT [Catalytic activity/Vol] 15 U/L Normal 14-59 [facility] Comment on above: Performed By: #### C MP #### [facility] [address] [place] [address] Dr. Aleah Peres Anion gap [Moles/Vol] 10.2 mmol/L Normal [facility] Comment on above: Performed By: #### C MP #### [facility] [address] [place] [address] Dr. Aleah Peres AST [Catalytic activity/Vol] 13 U/L Critically low 15-37 [facility] Comment on above: Performed By: #### C MP #### [facility] [address] [address] [address] Aleah Peres Bilirubin [Mass/Vol] 0.2 mg/dL Normal 0.2-1.0 [facility] Comment on above: Performed By: #### C MP #### [facility] [address] [address] [address] Aleah Peres Calcium [Mass/Vol] 9.1 mg/dL Normal 8.5-10.1 [facility] Comment on above: Performed By: #### C MP #### [facility] [address] [address] [address] Aleah Peres Chloride [Moles/Vol] 100 mmol/L Normal 98-107 [facility] Comment on above: Performed By: #### C MP #### [facility] [address] [place] [address] Dr. Aleah Peres CO2 [Moles/Vol] 28.8 mmol/L Normal 21.0-32.0 [facility] Comment on above: Performed By: #### C MP #### [facility] [address] [place] [address] Dr. Aleah Peres Creatinine [Mass/Vol] 0.56 mg/dL Normal 0.55-1.02 [facility] Comment on above: Performed By: #### C MP #### [facility] [address] [place] [address] Dr. Aleah Peres EGFR-AF SOMALI >60 Normal >=60 [facility] Comment on above: Performed By: #### C MP #### [facility] [address] [place] [address] Dr. Aleah Peres EGFR-NON AF SOMALI >60 Normal >=60 [facility] Comment on above: Performed By: #### C MP #### [facility] [address] [place] [address] Dr. Aleah Peres Globulin (S) [Mass/Vol] 3.9 g/dL Normal [facility] Comment on above: Performed By: #### C MP #### [facility] [address] [place] [address] Dr. Aleah Peres Glucose [Mass/Vol] 90 mg/dL Normal 74-106 [facility] Comment on above: Performed By: #### C MP #### [facility] [address] [address] [address] Aleah Peres Potassium [Moles/Vol] 4.0 mmol/L Normal 3.5-5.1 [facility] Comment on above: Performed By: #### C MP #### [facility] [address] [address] [address] Aleah Peres Protein [Mass/Vol] 6.9 g/dL Normal 6.4-8.2 [facility] Comment on above: Performed By: #### C MP #### [facility] [address] [address] [address] Aleah Peres Sodium [Moles/Vol] 135 mmol/L Critically low 136-145 [facility] Comment on above: Performed By: #### C MP #### [facility] [address] [address] [address] Aleah Peres Urea nitrogen [Mass/Vol] 4.0 mg/dL Critically low 7.0-18.0 [facility] Comment on above: Performed By: #### C MP #### [facility] [address] [address] [address] Aleah Peres Urea nitrogen/Creatinine [Mass ratio] 7.1 mg/mg [facility] Comment on above: Performed By: #### C MP #### [facility] [address] [address] [address] Aleah Peres PAP ACOG PANEL 2: 21 to 28on 08-02-[address] [facility] Comment on above: Result Comment: Perf ormed at: WB Performed By: #### [id number] #### [facility] [address] [place] [address] Dr. Aleah Peres Age Gdln ACOG Testing - [facility] Comment on above: Performed By: #### [id number] #### [facility] [address] [address] [address] Aleah Peres DIAGNOSIS: Comment Abnormal [facility] Comment on above: Result Comment: EPIT HELIAL CELL ABNORMALITY. LOW GRADE SQUAMOUS INTRAEPITHELIAL LESION (LSIL). Performed at: WB Performed By: #### [id number] #### [facility] [address] [place] [address] Dr. Aleah Peres Electronically signed by: Comment Normal [facility] Comment on above: Result Comment: Amena Arciniega MD, Pathologist Performed at: WB Performed By: #### [id number] #### [facility] [address] [place] [address] Dr. Aleah Peres Methodology: Comment Normal [facility] Comment on above: Result Comment: This liquid based ThinPrep(R) pap test was screened with the use of an image guided system. Performed at: WB Performed By: #### [id number] #### [facility] [address] [place] [address] Dr. Aleah Peres Note: Comment Normal [facility] Comment on above: Result Comment: The Pap smear is a screening test designed to aid in the detection of premalignant and malignant conditions of the uterine cervix. It is not a diagnostic procedure and should not be used as the sole means of detecting cervical cancer. Both false-positive and false-negative reports do occur. . Performed at: WB Performed By: #### [id number] #### [facility] [address] [place] [address] Dr. Aleah Peres Pathologist Provided ICD10 Comment Normal [facility] Comment on above: Result Comment: [id number]. [id number] Performed at: WB Performed By: #### [id number] #### [facility] [address] [place] [address] Dr. Aleah Peres Performed by: Comment Normal [facility] Comment on above: Result Comment: Caitlyn Crenshaw, Clinical Instructor (ASCP) Performed at: BA Performed By: #### [id number] #### [facility] [address] [place] [address] Dr. Aleah Peres Recommendation: Comment Abnormal [facility] Comment on above: Result Comment: Sugg est follow up as clinically appropriate. Performed at: WB Performed By: #### [id number] #### [facility] [address] [place] [address] Dr. Aleah Peres Reflex Criteria: Comment Normal [facility] Comment on above: Result Comment: The HPV DNA reflex criteria were not met with this specimen result therefore, no HPV testing was performed. . Performed at: WB Performed By: #### [id number] #### [facility] [address] [place] [address] Dr. Aleah Peres Specimen adequacy: Comment Normal [facility] Comment on above: Result Comment: Sati sfactory for evaluation. Endocervical and/or squamous metaplastic cells (endocervical component) are present. Performed at: WB Performed By: #### [id number] #### [facility] [address] [place] [address] Dr. Aleah Peres Covid-19 PCR (CVDTB)on 05-25 SARS-CoV-2 (COVID-19) RNA MARY ELLEN+probe Ql (Unsp spec) Not detected Normal NOT DETECTED [facility] Comment on above: Result Comment: When [...] for this test is supported by the [employer] of [employer] and Human Service's declaration that [...] used). Performed By: #### P REGQNT #### [facility] [address] [place] [address] Dr. Aleah Peres Vital Signs Date Time Vital Sign Value Performing Clinician Nelly smith 10-09-2024 11:20-0400 Body mass index (BMI) [Ratio] 32.15 kg/m2 Andrzej Ayesha DO Work Phone: [facility] 10-09-2024 11:20-0400 Body weight 83.64 kg Andrzej Ayesha DO Work Phone: [facility] 10-09-2024 11:20-0400 Diastolic blood pressure 68 mm[Hg] Andrzej Ayesha DO Work Phone: [facility] 10-09-2024 11:20-0400 Systolic blood pressure 102 mm[Hg] Andrzej Ayesha DO Work Phone: [facility] 09-14-2024 10:29-0500 Body height 160 cm Los Hollins MD Work Phone: [facility] 09-14-2024 10:29-0500 Body mass index (BMI) [Ratio] 32.24 kg/m2 Los Hollins MD Work Phone: [facility] 09-14-2024 10:29-0500 Body weight 82.56 kg Los Hollins MD Work Phone: [facility] 09-14-2024 10:29-0500 Diastolic blood pressure 59 mm[Hg] Los Hollins MD Work Phone: [facility] 09-14-2024 10:29-0500 Heart rate 80 /min Los Hollins MD Work Phone: [facility] 09-14-2024 10:29-0500 Systolic blood pressure 97 mm[Hg] Los Hollins MD Work Phone: [facility] 09-11-2024 11:24-0500 Body mass index (BMI) [Ratio] 31.58 kg/m2 Amy VILLATORO Work Phone: [facility] 09-11-2024 11:24-0500 Body weight 82.16 kg Amy VILLATORO Work Phone: [facility] 09-11-2024 11:24-0500 Diastolic blood pressure 70 mm[Hg] Butler PA Work Phone: [facility] 09-11-2024 11:24-0500 Systolic blood pressure 98 mm[Hg] Mis PA Work Phone: [facility] 08-14-2024 12:05-0500 Body mass index (BMI) [Ratio] 31.91 kg/m2 Andrzej Ayesha DO Work Phone: [facility] 08-14-2024 12:05-0500 Body weight 83.01 kg Andrzej Ayesha DO Work Phone: [facility] 08-14-2024 12:05-0500 Diastolic blood pressure 60 mm[Hg] Andrzej Ayesha DO Work Phone: [facility] 08-14-2024 12:05-0500 Systolic blood pressure 110 mm[Hg] Andrzej Ayesha DO Work Phone: [facility] 07-16-2024 10:25-0500 Body mass index (BMI) [Ratio] 30.71 kg/m2 Butler PA Work Phone: [facility] 07-16-2024 10:25-0500 Body weight 79.89 kg Butler PA Work Phone: [facility] 07-16-2024 10:25-0500 Diastolic blood pressure 70 mm[Hg] Mis PA Work Phone: [facility] 07-16-2024 10:25-0500 Systolic blood pressure 120 mm[Hg] Mis PA Work Phone: [facility] 06-07-2024 13:39-0500 Body mass index (BMI) [Ratio] 31.35 kg/m2 [facility] 06-07-2024 13:39-0500 Body weight 81.56 kg [facility] 06-07-2024 13:39-0500 Diastolic blood pressure 70 mm[Hg] [facility] 06-07-2024 13:39-0500 Systolic blood pressure 118 mm[Hg] [facility] 05-31-2024 09:40-0500 Body mass index (BMI) [Ratio] 30.86 kg/m2 Amy VILLATORO Work Phone: [facility] 05-31-2024 09:40-0500 Body weight 80.29 kg Amy VILLATORO Work Phone: [facility] 05-31-2024 09:40-0500 Diastolic blood pressure 72 mm[Hg] Amy VILLATORO Work Phone: [facility] 05-31-2024 09:40-0500 Systolic blood pressure 118 mm[Hg] Amy Dobbins PA Work Phone: [facility] 08-31-2023 13:43-0500 Body mass index (BMI) [Ratio] 33.2 kg/m2 Andrzej Ayesha DO Work Phone: [facility] 08-31-2023 13:43-0500 Body weight 86.36 kg Andrzej Ayesha DO Work Phone: [facility] 08-31-2023 13:43-0500 Diastolic blood pressure 70 mm[Hg] Andrzej Ayesha DO Work Phone: [facility] 08-31-2023 13:43-0500 Systolic blood pressure 114 mm[Hg] Andrzej Ayesha DO Work Phone: [facility] Healthcare Encounters Encounter Date Encounter Type Care Provider Facility Start: 10-09-2024 End: 10-09-2024 Office outpatient visit 15 minutes Andrzej Ayesha DO Work Phone: [facility] Comment on above: Second trimester pre gnancy; 26 weeks gestation of Start: 10-09-2024 End: 10-09-2024 ambulatory ANDRZEJ AYESHA Not Available Start: 09-14-2024 End: 09-14-2024 Office consultation new/estab patient 60 min Los Hollins MD Work Phone: [facility] Comment on above: 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) Start: 09-14-2024 End: 09-14-2024 Orders Only Sharla Dunham RN [facility] Comment on above: Short cervix affecti ng (Primary Dx); Encounter for repeat ultrasound of pyelectasis, antepartum, single or unspecified fetus Start: 09-13-2024 End: 09-14-2024 Chart abstracting Los Hollins MD Work Phone: [facility] Start: 09-11-2024 End: 09-11-2024 ambulatory AMY DOBBINS Not Available Start: 09-11-2024 End: 09-11-2024 Office outpatient visit 15 minutes Amy VILLATORO Work Phone: [facility] Comment on above: Second trimester pre gnancy; 22 weeks gestation of ; Diabetes mellitus screening; BV (bacterial vaginosis) Start: 09-11-2024 End: 09-11-2024 ambulatory ANDRZEJ AYESHA Not Available Start: 08-30-2024 End: 09-01-2024 Clinisync Result Encounter Andrzej Ayesha DO Work Phone: [facility] External Department Unsolicited Start: 08-30-2024 End: 09-01-2024 Clinisync Result Encounter Andrzej Ayesha DO Work Phone: [facility] External Department Unsolicited Start: 08-28-2024 End: 08-28-2024 ambulatory ANDRZEJ AYESHA Not Available Start: 08-14-2024 End: 08-14-2024 Bamboo flowsheet Andrzej Ayesha DO Work Phone: [facility] Start: 08-14-2024 End: 08-14-2024 Bamboo flowsheet Andrzej Ayesha DO Work Phone: [facility] Start: 08-14-2024 End: 08-14-2024 Office outpatient visit 15 minutes Andrzej Ayesha DO Work Phone: [facility] Comment on above: 18 weeks [...] Clinisync Result Encounter Amy VILLATORO Work Phone: [facility] External Department Unsolicited Start: 07-16-2024 End: 07-16-2024 ambulatory AMY DOBBINS Not Available Start: 07-16-2024 End: 07-16-2024 Patient encounter procedure Amy VILLATORO Work Phone: [facility] Start: 07-16-2024 End: 07-16-2024 Periodic preventive med [...] Result Encounter Andrzej Ayesha DO Work Phone: [facility] External Department Unsolicited Start: 06-14-2024 End: 06-14-2024 Clinisync Result Encounter Andrzej Ayesha DO Work Phone: [facility] External Department Unsolicited Start: 06-07-2024 End: 06-07-2024 [...] 03-06-2024 End: 03-06-2024 Patient encounter procedure Navneet Yikaylyn DO Work Phone: [facility] Comment on above: Encounter for pre-em ployment drug testing (Primary Dx) Start: 11-30-2023 End: 11-30-2023 ambulatory AMY DOBBINS Not Available Start: 08-31-2023 End: 08-31-2023 Office outpatient visit 15 minutes Andrzej Hodge DO Work Phone: [facility] Comment on above: Third trimester preg hanh Start: 11-10-2022 End: 11-10-[address] ALEXIA BARRETT . Facility: Start: 10-22-2022 End: 10-23-2022 ambulatory NATASHA CAMARA . Facility: Start: 10-08-2022 End: 10-09-2022 ambulatory ALEXIA BARRETT Facility:[facility] Start: 10-08-2022 End: 10-08-[address] ALEXIA BARRETT . Facility: Start: 10-06-2022 End: 10-07-[address] ALEXIA BARRETT . Facility: Start: 09-17-2022 Encounter for other preprocedural examination DR ANDRZEJ HODGE . [facility] Start: 09-15-2022 End: 09-16-2022 ambulatory ANDRZEJ HODGE Facility:[facility] Start: 09-15-2022 End: 09-15-[address] ANDRZEJ HODGE . Facility: Start: 09-14-2022 End: 09-15-[address] ANDRZEJ HODGE . Facility:[facility] Start: 09-14-2022 End: 09-15-2022 Encounter for other preprocedural examination DR ANDRZEJ HODGE . Facility:[facility] Start: 09-13-2022 End: 09-14-[address] ALEXIA BARRETT . Facility:[facility] Start: 08-16-2022 End: 08-16-2022 ambulatory STEVEN ARELLANO Facility:[facility] Start: 07-21-2022 End: 07-21-[address] ALEXIA BARRETT . Facility:[facility] Start: 06-07-2022 End: 06-08-[address] MAGDA MARTINEZ Facility:[facility] Procedures Date Procedure Procedure Detail Performing Clinician Start: 09-11-2024 Urnls dip stick/tabl et rgnt non-auto w/o micrscp Amy VILLATORO Work Phone: Start: 08-30-2024 AFP, SERUM, OPEN SPI NA BIFIDA Andrzej Ayesha DO Work Phone: Start: 08-14-2024 Urnls dip stick/tabl et rgnt non-auto w/o micrscp Andrzej Aeysha DO Work Phone: Start: 07-16-2024 Urnls dip [...] stick/tabl et rgnt non-auto w/o micrscp Andrzej Hodge DO Work Phone: Start: 11-10-2022 Cytp cerv/vag auto t hin layer prep mnl screen Andrzej Hodge DO Work Phone: Plan of Treatment Date Care Activity Detail Author Start: 07-16-2027 Screening for malignant neoplasm of cervix Pap Smear [facility] Start: 09-14-2025 Adult BMI Screening Adult BMI Screen ing [facility] Start: 09-14-2025 Tobacco Screening Tobacco Screening [facility] Start: 09-14-2025 End: 09-14-2025 US MFM with or without consult US MFM with or without consult Imaging Routine Short cervix affecting Encounter for repeat ultrasound of pyelectasis, antepartum, single or unspecified fetus Expected: 09/14/2025 (Approximate), Expires: 09/14/2025 [facility] Work Phone: Comment on above: Expected: 09/14/2025 (Approximate), Expires: 09/14/2025 Start: 10-24-2024 End: 10-24-2024 Patient encounter procedure 10/24/2024 11:30 AM EDT Routine [facility] [address] [place] [phone] Amy Dobbins PA [address] [place] [address] [facility] Start: 10-23-2024 End: 10-23-2024 Patient encounter procedure 10/23/2024 2:15 PM EDT Appointment [facility] - Ultrasound [address] [place] [phone] [facility] - Ultrasound Start: 10-09-2024 End: 10-09-2024 Patient encounter procedure 10/09/2024 11:10 AM EDT Routine [facility] [address] [place] [phone] Andrzej Hodge, DO [address] [place] [address] [facility] Start: 09-14-2024 End: 09-14-2024 Patient encounter procedure 09/14/2024 11:30 AM EST Office Visit Maternal- Medicine at [facility] [address] [place] [address] Los Hollins MD [address] [place] [address] Arrived Maternal- Medicine at [facility] Comment on above: Arrived Start: 09-12-2024 End: 09-12-2024 Patient encounter procedure 09/12/2024 10:30 AM EST Routine [facility] [address] [facility] [place] [address] Amy Dobbins PA [address] [facility] [place] [address] [facility] Start: 09-11-2024 End: 09-11-2025 CBC panel - Blood by Automated count CBC Lab Routine Diabetes mellitus screening Expected: 09/11/2024 (Approximate), Expires: 09/11/2025 [facility] Work Phone: Comment on above: Expected: 09/11/2024 (Approximate), Expires: 09/11/2025 Start: 09-11-2024 End: 09-11-2025 Measurement of glucose 1 hour after glucose challenge for glucose tolerance test Glucose tolerance, 1 hour Lab Routine Diabetes mellitus screening Expected: 09/11/2024 (Approximate), Expires: 09/11/2025 [facility] Comment on above: Expected: 09/11/2024 (Approximate), Expires: 09/11/2025 Start: 09-11-2024 End: 09-11-2024 Patient encounter procedure 09/11/2024 10:20 AM EST Routine [facility] [address] [facility] [place] [address] Amy Dobbins PA [address] [facility] [place] [address] [facility] Start: 09-11-2024 End: 09-11-2024 Professional / ancillary services management 09/11/2024 10:00 AM EST Ancillary Procedure [facility] [address] [facility] [place] [phone] [facility] Start: 08-28-2024 End: 08-28-2024 Professional / ancillary services management 08/28/2024 1:00 PM EST Ancillary Procedure [facility] [address] [facility] [place] [address] [facility] Start: 08-14-2024 End: 10-12-2024 Alpha fetoprotein, maternal Alpha fetoprotein, maternal Lab Routine Screening, , for anatomic survey Expected: 08/14/2024 (Approximate), Expires: 10/12/2024 [facility] Comment on above: Expected: 08/14/2024 (Approximate), [...] Procedure [facility] [address] [place] [phone] [facility] Start: 07-16-2024 End: [...] cervical length Expected: 07/16/2024 (Approximate), Expires: 07/16/2025 [facility] Comment on above: Expected: 07/16/2024 (Approximate), Expires: 07/16/2025 Start: 07-09-2024 End: 07-09-2024 Patient encounter procedure 07/09/2024 2:50 PM EST Routine [facility] [address] [place] [phone] Andrzej Hodge, [address] [facility] [place] [address] [facility] Start: 06-07-2024 End: 06-07-2025 ABO/Rh ABO/Rh Lab Routine Missed menses , unspecified gestational age Expected: 06/07/2024 (Approximate), Expires: 06/07/2025 [facility] Comment on above: Expected: 06/07/2024 (Approximate), Expires: 06/07/2025 Start: 06-07-2024 End: 06-07-2025 Blood type and Indirect antibody screen panel - Blood Type and screen Lab Routine Missed menses , unspecified gestational age Expected: 06/07/2024 (Approximate), Expires: 06/07/2025 [facility] Work Phone: Comment on above: Expected: 06/07/2024 (Approximate), Expires: 06/07/2025 Start: 06-07-2024 End: 06-07-2025 Drugs of abuse panel - Urine by Screen method Rapid drug screen, urine Lab Routine , unspecified gestational age Encounter for supervision of normal first in first trimester Expected: 06/07/2024 (Approximate), Expires: 06/07/2025 [facility] Comment on above: Expected: 06/07/2024 (Approximate), Expires: 06/07/2025 Start: 06-07-2024 End: 06-07-2024 ambulatory 06/07/2024 1:30 PM EST Initial [facility] [address] [place] [address] [facility] Start: 06-07-2024 End: 06-07-2024 Professional / ancillary services management 06/07/2024 1:00 PM EST Ancillary Procedure [facility] [address] [place] [phone] [facility] Start: 05-21-2024 End: 05-21-2024 Patient encounter procedure 05/21/2024 11:00 AM EDT Office Visit [facility] [address] [place] [phone] Amy Dobbins, PA [address] [place] [address] [facility] Start: 03-25-2024 Influenza vaccination Influenza Vacc ine [facility] Start: 09-14-2023 End: 09-14-2023 Patient encounter procedure 09/14/2023 3:50 PM EST Routine [facility] [address] [place] [address] Amy Dobbins, PA [address] [place] [address] [facility] Start: 2018 DTaP,Tdap and Td Vaccines (1 - Tdap) DTaP,Tdap and Td Vaccines (1 - Tdap) [facility] Start: 2017 Adult BMI Follow Up Plan Adult BMI Follow Up Plan [facility] Start: 2017 Adult BMI Screening Adult BMI Screen ing [facility] Start: 2011 Depression Screening Depression Scre ening [facility] Start: 2011 Tobacco Screening Tobacco Screening [facility] Bacteria identified in Urine by Culture Urine culture Microbiology Routine Missed menses Ordered: 06/07/2024 [facility] Comment on above: Ordered: 06/07/2024 Bacteria identified in Urine by Culture Urine culture Microbiology Routine BV (bacterial vaginosis) Ordered: 09/11/2024 [facility] Comment on above: Ordered: 09/11/2024 CBC W Auto Differential panel - Blood CBC and differential Lab Routine Missed menses , unspecified gestational age Ordered: 06/07/2024 [facility] Comment on above: Ordered: 06/07/2024 CHLAMYDIA TRACHOMATI S (GENITO/STI) CHLAMYDIA TRACHOMATIS (GENITO/STI) Lab Routine Second trimester Ordered: 07/16/2024 [facility] Comment on above: Ordered: 07/16/2024 Cytology Cervical or vaginal smear or scraping study Pap Smear Pathology and Cytology Routine Well woman exam with routine gynecological exam 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 Second trimester Ordered: 07/16/2024 [facility] Work Phone: Comment on above: Ordered: 07/16/2024 Hemoglobin A1c/Hemoglobin.total in Blood Hemoglobin A1c Lab Routine Missed menses , unspecified gestational age Ordered: 06/07/2024 [facility] Comment on above: Ordered: 06/07/2024 Hepatitis B virus surface Ag [Presence] in Serum or Plasma by Immunoassay Hepatitis B surface antigen Lab Routine Missed menses , unspecified gestational age Ordered: 06/07/2024 [facility] Comment on above: Ordered: 06/07/2024 Hepatitis C virus Ab [Presence] in Serum or Plasma by Immunoassay Hepatitis C antibody Lab Routine Missed menses , unspecified gestational age Ordered: 06/07/2024 [facility] Comment on above: Ordered: 06/07/2024 HIV-1/HIV-2 antigen/antibody combination immunoassay HIV-1 and HIV-2 antibodies Lab Routine Missed menses , unspecified gestational age Ordered: 06/07/2024 [facility] Comment on above: Ordered: 06/07/2024 Neisseria gonorrhoea e DNA [Presence] in Unspecified specimen by MARY ELLEN with probe detection Neisseria gonorrhea DNA probe, direct Lab Routine Second trimester Ordered: 07/16/2024 [facility] Comment on above: Ordered: 07/16/2024 Reagin Ab [Presence] in Serum by RPR RPR Lab Routine Missed menses , unspecified gestational age Ordered: 06/07/2024 [facility] Comment on above: Ordered: 06/07/2024 Rubella antibody, IgG Rubella an tibody, IgG Lab Routine Missed menses , unspecified gestational age Ordered: 06/07/2024 [facility] Comment on above: Ordered: 06/07/2024 SURESWAB(R) ADVANCED VAGINITIS PLUS, TMA SURESWAB(R) ADVANCED VAGINITIS PLUS, TMA Pathology and Cytology Routine Second trimester Ordered: 07/16/2024 [facility] Comment on above: Ordered: 07/16/2024 Payers Date Payer Category Payer [facility] Other FOR[facility]LY [facility] [id number] 2022 Medicaid [id number] 2022 Medicaid [id number] 1999 Unknown [id number] 2.16.840.1.653557.3.579.2. 593 1999 Unknown [id number] 2.16.840.1.409521.3.579.2. 593 1999 Unknown [id number] 2.16.840.1.194557.3.579.2. 593 1999 Unknown [id number] 2.16.840.1.978765.3.579.2. 593 1999 Unknown [id number] 2.16.840.1.344027.3.579.2. 593 1999 Unknown [id number] 2.16.840.1.698152.3.579.2. 593 1999 Unknown [id number] 2.16.840.1.173181.3.579.2. 593 1999 Unknown [id number] 2.16.840.1.457833.3.579.2. 593 1999 Unknown [id number] 2.16.840.1.351668.3.579.2. 593 1999 Unknown [id number] 2.16840.1.278300.3.579.2. 593 1999 Unknown [id number] 2.16.840.1.402395.3.579.2. 1286 1999 Unknown [id number] 2.16.840.1.878599.3.579.2. 1286 1999 Unknown [id number] 2.16.840.1.986264.3.579.2. 1259 1999 Unknown [id number] 2.16.840.1.237678.3.579.2. 1259 1999 Unknown [id number] 2.16.840.1.245407.3.579.2. 1259 1999 Unknown [id number] 2.16.840.1.510787.3.579.2. 1259 1999 Unknown [id number] 2.16.840.1.098869.3.579.2. 1259 1999 Unknown [id number] 2.16.840.1.629457.3.579.2. 1259 1999 Unknown [id number] 2.16.840.1.284850.3.579.2. 1259 1999 Unknown [id number] 2.16.840.1.058111.3.579.2. 9 1999 Unknown [id number] 2.16.840.1.034491.3.579.2. 9 1999 Unknown [id number] 2.16.840.1.756400.3.579.2. 9 1999 Unknown [id number] 2.16.840.1.905078.3.579.2. 1259 1959 Unknown [id number] 1959 Unknown [id number] Social History Date Type Detail Facility Start: 04-18-2023 End: 09-13-2024 Tobacco smoking status NHIS Never smoked tobacco [facility] Start: 08-31-2023 End: 10-09-2024 Alcohol intake Lifetime non-drinker (finding) [facility] Start: 06-13-2023 End: 10-12-2023 History of Social function [facility] Start: 06-13-2023 End: 10-12-2023 Tobacco use panel [facility] Start: 04-18-2023 Alcohol Comment caffeine: none [facility] Start: 02-17-2023 [facility] Start: 2000 Sex Assigned At Not on file [facility] Start: 09-13-2024 Sex Female (finding) [facility] Within the past 12 months we worried whether our food would run out before we got money to buy more. Never True [facility] Clinical Notes 09-15-2022 to 10-09-2024 Sharon Hare LPN - 10/09/2024 11:10 AM Sis Vila LPN - 09/14/2024 11:30 AM Roseanne Hollins MD - 09/14/2024 11:30 AM SHAUNA Hammonds - 09/11/2024 10:20 AM EST Note Date & Type Note Facility 10-09-2024 History of Present illness Narrative Reason for Appointment: Patient ID: Alexandra Higgins is a 24 y.o. female who presents for Routine Visit Patient presents today for Return OB appointment. MEDICATIONS Current Outpatient Medications Medication Instructions docusate sodium (COLACE) 100 mg, Oral, 2 times daily PRN magnesium oxide (MAG-OX) 400 mg, Oral, Daily MV-Min-Fe Fum-FA-DHA ([facility] PO) 1 each, Daily ALLERGIES Allergies Allergen Reactions Pollen Extract Other Reaction(s): Eye Swelling PROBLEMS Active Ambulatory Problems Diagnosis Date Noted [...] nursing note reviewed. Exam conducted with a mission manager present. Vitals: Estimated body mass index is 32.15 kg/m as calculated from the following: Height as of 11/10/22: 5' 3.5 . Weight as of this encounter: 184 lb 6.4 oz. BP: 102/68 Patient's last menstrual period was 04/04/2024. ASSESSMENT & PLAN ICD-10-CM 1. Second trimester Z34.92 2. 26 weeks gestation of Z3A.26 Patient presents today for a routine obstetrics appointment. Patient is currently 26w6d with a Estimated Date of Delivery: 01/09/25.Return OB: Patient presents today for a routine obstetrics appointment. Patient is currently 26w6d . Patient states she is doing well but has complaints of being tired due to current . Patient has verbalizes frequent movement. labor precautions was discussed/given. Pt having cervical length with [facility] in [place] coming up. Pt states its getting harder at work. No orders of the defined types were placed in this encounter. Follow Up: Patient is to return to office in 2 week for routine OB appointment. Documented by Sharon Hare LPN on behalf of: Andrzej Hodge DO documented in this encounter [facility] 09-14-2024 History of Present illness Narrative Headache/epigastric [...] Yes Have you been seen here at [facility] in a previous ? No Recent ER visits or hospitalizations? ER visit within the last month, was vomiting blood (was old it was just irritation from vomiting so much) Bring blood sugar log or meter with you today? (Please bring them with you for every visit at [facility]) N/A Flu vaccine (May-September)? 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 Patient does have ultrasound scheduled with us. Thank you for allowing me to participate in Alexandra Higgins . If there any questions please do not hesitate to contact us. Sincerely, LOS HOLLINS MD documented in this encounter [facility] 09-11-2024 History of Present illness Narrative Reason [...] 2.0 cm. We will refer patient to [facility] for further evaluation. Pt also complains of odor with discharge with progesterone, we will send in flagyl Documented by SHAUNA Rizvi on behalf of: SHAUNA Rizvi documented in this encounter [facility] 08-14-2024 History of Present illness Narrative Reason [...] nursing note reviewed. Exam conducted with a mission manager present. Vitals: Estimated body mass index is [...] 18w6d with a Estimated Date of Delivery: 6/18/25. Pt given msAFP and anatomy scan order to have scheduled. Pt having headaches- rx for mag oxide faxed to pharmacy. Pt to return in 4 weeks for scheduled Ob appt. Documented by Sharon Hare LPN on behalf of: Andrzej Hodge DO documented in this encounter [facility] 07-16-2024 History of Present illness Narrative Reason [...] nursing note reviewed. Exam conducted with a mission manager present. Vitals: Estimated body mass index is [...] without difficulty and patient was given [facility] order to have obtained. Orders Placed This [...] of: SHAUNA Rizvi documented in this encounter [facility] 06-07-2024 History of Present illness Narrative Reason [...] or undercooked meat, and stay away from [facility]. Patient has also been advised to [...] Brianna Perry LPN documented in this encounter [facility] 05-31-2024 History of Present illness Narrative Reason [...] of: SHAUNA Rizvi documented in this encounter [facility] 03-06-2024 History of Present illness Narrative Pt presents today for a pre-employment drug screen, BAT, Physical Exam, Audiogram, and PFT for [place]. Pt verified by photo ID. documented in this encounter [facility] 08-31-2023 History of Present illness Narrative Reason [...] nursing note reviewed. Exam conducted with a mission manager present. Vitals: Estimated body mass index is [...] Andrzej Hodge DO documented in this encounter [facility] 09-15-2022 Note EXAMINATION: US PREG TV HISTORY: Spontaneous ; pre-DANND evaluation COMPARISON: Ultrasound transvaginal 09/13/2022 FINDINGS: GESTATIONAL [...] by: ASHLEY NOEL Date: 2022-09-15 07:41 [facility] 09-15-2022 Note OPERATIVE NOTE OPERATION DATE: 09/15/2022 PROCEDURE: Suction D AND C. PREOPERATIVE DIAGNOSIS: First trimester missed at 10 weeks. POSTOPERATIVE DIAGNOSIS: First trimester missed at 10 weeks. ANESTHESIA: General. SURGEON: Andrzej Hodge D.O. YOKE SETTER: None. FINDINGS: Products of conception. SPECIMEN: Products [...] products of conception were removed using an 9-Citizen Of [place] suction curette. Excellent hemostasis was noted. The patient tolerated the procedure well. Sponge, lap, and needle counts were correct x 2. All instruments were then removed from the patient's vagina. The patient was taken to the Recovery Room in stable condition. ?? [facility] Evaluation note Diagnosis Third trimester state, incidental [facility] Diagnosis 8 weeks gestation of Cramping affecting , antepartum documented [facility] Diagnosis Missed menses , unspecified gestational age Encounter for supervision of normal first in first trimester documented in this encounter [facility]* Diagnosis Encounter for pre-employment drug testing- Primary documented in this encounter [facility]* Diagnosis Screening, , for anatomic survey Encounter for anatomic survey Well woman exam with routine gynecological exam Routine gynecological examination 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 Second trimester state, incidental Encounter for screening for cervical length documented in this encounter [facility]* Diagnosis 18 weeks gestation of Second trimester state, incidental Screening, , for anatomic survey Encounter for anatomic survey Other headache syndrome Constipation, unspecified constipation type documented in this encounter [facility]* Diagnosis Second trimester state, incidental 22 weeks gestation of Diabetes mellitus screening Screening for diabetes mellitus BV (bacterial vaginosis) Unspecified vaginitis and vulvovaginitis documented in this encounter [facility]* Diagnosis Short cervix affecting - Primary Cervical shortening, unspecified as to episode of care or not applicable Encounter for repeat ultrasound of pyelectasis, antepartum, single or unspecified fetus documented in this encounter [facility]* Diagnosis Short cervix affecting with delivery- Primary Cervical shortening, delivered, with or without mention of antepartum condition documented in this encounter [facility]* Diagnosis Second trimester state, incidental 26 weeks gestation of documented in this encounter [facility] HealthcareInstructionsNot on filedocumented in this [facility] SystemInstructionsNot on filedocumented in this encounterMem[facility] SystemInstructionsNot on filedocumented in this [facility]Mem[facility] Summary Purpose Family History No [...] DATE CREATED AUTHOR AUTHOR'S ORGANIZ ATION 12/08/2022 [facility] DATE CREATED AUTHOR AUTHOR'S ORGANIZ ATION 09/16/[address] [facility] DATE CREATED AUTHOR AUTHOR'S ORGANIZ ATION 10/11/[address] [facility] dical Specialists EPIC Reason for Visit [...] BE BASED ON THE PRIMARY CLINICAL RECORDS. [employer] provides no warranty or guarantee of the accuracy or completeness of information in this document.
[2024-10-15 13:18] LABS: Bilirubin Urine NEGATIVE (NEGATIVE); Blood Urine NEGATIVE (NEGATIVE); Clarity Urine CLEAR (CLEAR); Color Urine LT. YELLOW (YELLOW); Glucose Urine UA NEGATIVE (NEGATIVE); Ketones Urine NEGATIVE (NEGATIVE); Leukocyte Esterase Urine TRACE (NEGATIVE); Nitrite Urine NEGATIVE (NEGATIVE); Protein Urine NEGATIVE (NEG/TRACE); Specific Gravity Urine 1.015 (1.005-1.025); Urobilinogen Urine 0.2 EU/dL (0.2-1.0); pH Urine 8.5 (5.0-9.0)
[2024-10-15 13:20] LABS: Urine Microscopic Indicated YES
[2024-10-15 13:27] LABS: Bacteria Urine SMALL #/HPF (NONE SEEN); Cast Seen? NONE SEEN #/LPF (NONE SEEN); Crystals Seen? None Seen #/HPF (None Seen); Mucus Urine TRACE (NONE SEEN); RBC Urine 0-2 #/HPF (0-2); Squamous Epithelial Cell Urine MODERATE #/LPF (NONE/RARE); Urine Culture Indicated YES-FRMC
--- NOTE | 2024-10-15 14:10 | PC.NURSE ---
cervical length 2.5, given dc instructions and pt to go to Dr Hodge's to get work excuse
== END 2024-10-15 14:12 | disposition home or self-care (01) ==
LOC: FBC 12:34
PROVIDERS: Admitting Provider Obstetrics & Gynecology; Visit Provider Obstetrics & Gynecology
DX: O26.892 Other specified pregnancy related conditions, second trimester (principal); R10.2 Pelvic and perineal pain; Z3A.27 27 weeks gestation of pregnancy
CPT/HCPCS: 76817; 81001; 87086; G0378; G0379

== ENCOUNTER 2024-11-26 12:41 | Observation (INO) | payer MEDICAID, SELFPAY ==
[2024-11-26 12:59] VITALS: TEMP 36.1
[2024-11-26 13:00] VITALS: BP 111/71; PULSE 106
--- NOTE | 2024-11-26 13:33 | PC.NURSE ---
1250-Pt arrives to [facility] at this time. Pt given gown and urine specimen cup for sample. Pt complaining of vaginal/cervical pain that started this morning at 0230 and continued on and off until 0430. Pt states it did not feel like lightening crotch . Pt also states she had some rectal pain occur with the vaginal pain. Pt denies cxt's. Pt denies leaking of fluid or vaginal bleeding. Pt denies UTI S/S, but states she is frequently using the restroom with little amounts of urine occuring when voiding. Pt reports movement. Pt denies vaginal pain currently. Pt currently seeing MFM for shorten cervix; last visit was last ; EFW 4lbs 10oz. Pt see's next Tuesday.
[2024-11-26 13:58] LABS: Bilirubin Urine NEGATIVE (NEGATIVE); Blood Urine NEGATIVE (NEGATIVE); Clarity Urine SL CLOUDY (CLEAR); Color Urine LT. YELLOW (YELLOW); Glucose Urine UA NEGATIVE (NEGATIVE); Ketones Urine NEGATIVE (NEGATIVE); Leukocyte Esterase Urine SMALL (NEGATIVE); Nitrite Urine NEGATIVE (NEGATIVE); Protein Urine NEGATIVE (NEG/TRACE); Specific Gravity Urine 1.015 (1.005-1.025); Urobilinogen Urine 0.2 EU/dL (0.2-1.0)
[2024-11-26 14:00] LABS: Urine Microscopic Indicated YES
[2024-11-26 14:04] LABS: Bacteria Urine LARGE #/HPF (NONE SEEN); RBC Urine 0-2 #/HPF (0-2); Squamous Epithelial Cell Urine MODERATE #/LPF (NONE/RARE)
[2024-11-26 14:06] LABS: Amorphous Sediment Urine MODERATE; Cast Seen? NONE SEEN #/LPF (NONE SEEN); Crystals Seen? Seen #/HPF (None Seen); Mucus Urine NONE SEEN (NONE SEEN); Urine Culture Indicated YES-LC
== END 2024-11-26 15:00 | disposition home or self-care (01) ==
LOC: FBC 12:43
PROVIDERS: Admitting Provider Obstetrics & Gynecology; Visit Provider Obstetrics & Gynecology
DX: O26.893 Other specified pregnancy related conditions, third trimester (principal); R10.2 Pelvic and perineal pain; Z3A.33 33 weeks gestation of pregnancy
CPT/HCPCS: 59025; 81001; 87086; G0378; G0379

== ENCOUNTER 2024-12-09 09:16 | Observation (INO) | payer MEDICAID, SELFPAY ==
--- OUTSIDE RECORDS SUMMARY | 2024-12-09 09:19 | XMS_ITS | CCD ---
Author Organization [facility] Care Team Providers Care Belt Loop Maker Name Role Phone ALEXIA BARRETT Attending Unavailable [...] Referring Unavailable AYESHA, ANDRZEJ R Referring Unavailable Unavailable Primary Care Provider Unavailabl e AYESHA, ANDRZEJ R Referring Unavailable AYESHA, ANDRZEJ R Referring Unavailable AYESHA, ANDRZEJ Attending Unavailable AYESHA, ANDRZEJ Referring Unavailable MIS, Attending Unavailable AYESHA, ANDRZEJ Attending Unavailable MIS, Attending Unavailable PAM MENJIVAR Attending Unavailable MIS, Attending Unavailable MIS, Attending Unavailable AYESHA, ANDRZEJ Attending Unavailable HENRIQUE WANG Attending Unavailable AYESHA, ANDRZEJ Attending Unavailable Allergies Allergy Classification Reported Allergen(s) Allergy Type Date of Onset Reaction(s) Facility (6 sources) [place]; Translations: [POLLEN EXTRACTS] Propensity to adverse reactions to drug 5 Eye Swelling [facility] System (15 sources) [place] Propensity to adverse reactions 5 [facility] Medications Current Medications Medication Drug Class(es) Dates Sig (Normalized) Sig (Original) docusate sodium 100 mg oral capsule (17 sources) Start: 08-14-2024 End: 11-12-2024 take 1 capsule by mouth twice daily as needed for constipation docusate sodium (Colace) 100 MG capsule Indications: Constipation, unspecified constipation type Take 1 capsule (100 mg) by mouth 2 (two) times a day as needed for constipation 60 capsule 5 08/14/2024 11/12/2024 Active magnesium oxide 400 mg oral tablet (20 sources) Start: 08-14-2024 End: 08-14-2025 take 1 tablet by mouth once daily magnesium oxide (Mag-Ox) 400 MG tablet Indications: Other headache syndrome Take 1 tablet (400 mg) by mouth Daily 30 tablet 11 08/14/2024 08/14/2025 Active metroNIDAZOLE 500 mg oral tablet (6 sources) Nitroimidazole Antimicrobial Start: 09-11-2024 End: 09-18-2024 take 1 tablet by mouth in the morning metroNIDAZOLE (Flagyl) 500 MG tablet Indications: BV (bacterial vaginosis) Take 1 tablet (500 mg) by mouth in the morning and 1 tablet (500 mg) before bedtime. Do all this for 7 days. Do not drink alcohol while taking this medication. 14 tablet 09/11/2024 09/18/2024 Active polysaccharide iron complex 391 mg oral capsule (5 sources) Start: 11-22-2024 End: 12-22-2024 take 1 capsule by mouth once daily iron polysaccharides (ProFe) 391.3 (180 Fe) MG capsule Indications: Other iron deficiency anemia Take 1 capsule (391.3 mg) by mouth Daily 30 capsule 6 11/22/2024 12/22/2024 Active Start: 08-16-2023 End: 08-31-2023 take 1 capsule by mouth once in the morning iron polysaccharides (ProFe) 391.3 (180 Fe) MG capsule Indications: Anemia during in second trimester Take 1 capsule (391.3 mg) by mouth in the morning. 30 capsule 11 08/16/2023 08/31/2023 Discontinued (Side effects) [id number] AC-D GRANDA ORAL (4 sources) 105-IRO N-FOLIC AC-DHA ORAL Take by mouth. Active MV-Min-Fe Fum-FA-DH A (CENTRUM SPECIALIST PO) (20 sources) take 1 dose by mouth once in the morning MV-Min-Fe Fum-FA-DHA (CENTRUM SPECIALIST PO) Take 1 each by mouth in the morning. Active take 1 dose by mouth once in the morning MV-Min-Fe Fum-FA-DHA (CENTRUM SPECIALIST PO) Take 1 each by mouth in the morning. 0 Active progesterone 200 mg oral capsule (4 sources) Progesterone take 1 capsule by mouth [...] Drug Class(es) Dates Sig (Normalized) Sig (Original) [id number] 200 actuat albuterol 0.09 mg/actuat metered dose inhaler (7 sources) beta2-Adrenergic Agonist End: 06-07-2024 albuterol HFA (Ventolin HFA) 90 mcg/act inhaler every 4 (four) hours. 06/07/2024 Discontinued 27-1 MG tablet (1 source) Start: 09-21-2022 End: 08-31-2023 27-1 MG tablet 1 (one) time each day at the same time. 0 09/21/2022 08/31/2023 Discontinued (Therapy completed) HM-Ero-ST-[place]-3 ( Gummies/DHA & FA) 0.4-32.5 MG chewable tablet (1 source) Start: 03-03-2023 End: 08-31-2023 XY-Psn-CR-[place]-3 ( Gummies/DHA & FA) 0.4-32.5 MG chewable [...] Onset: 10-26-2023 10-26-2023 Chronic Other complications of (1 source) Obesity complicating , unspecified trimester; Translations: [Obesity complicating , unspecified trimester] Onset: 11-22-2024 Chronic Other complications of (5 sources) Missed ; Translations: [MISSED ] Onset: 09-15-2022 Episodic Other complications of (2 sources) Uterine contractions problem; Translations: [Other specified related conditions, unspecified trimester] 05-31-2024 Episodic Other complications of (8 sources) Short cervical length in ; Translations: [Cervical shortening, unspecified trimester] Onset: 09-14-2024 09-14-2024 Episodic Other complications of (2 sources) Cervical shortening, unspecified trimester; Translations: [Cervical shortening, unspecified trimester] Onset: 09-14-2024 Episodic Other gastrointestinal disorders (2 sources) Constipation; Translations: [Constipation, unspecified] 08-14-2024 Episodic Other nutritional; endocrine; and metabolic disorders (20 sources) Obesity; Translations: [Obesity, unspecified] Onset: 10-26-2023 10-26-2023 Chronic Other and delivery including normal (20 sources) Encounter for test, result positive; Translations: [...] [26 weeks gestation of ] 10-09-2024 Episodic Residual codes; unclassified (2 sources) Gestation period, 29 weeks; Translations: [29 weeks gestation of ] 10-24-2024 Episodic Residual codes; unclassified (2 sources) Gestation period, 31 weeks; Translations: [31 weeks gestation of ] 11-07-2024 Episodic Residual codes; unclassified (2 sources) Gestation period, 33 weeks; Translations: [33 weeks gestation of ] 11-21-2024 Episodic Residual codes; unclassified (2 sources) Gestation period, 34 weeks; Translations: [34 weeks gestation of ] 12-04-2024 Episodic Spontaneous (4 sources) Incomplete spontaneous without complication; Translations: [INCOMPL SPONT AB W/O COMPLICATION] Onset: 10-06-2022 Episodic Unclassified (3 sources) CONTACT W/AND (SUSP) EXPOS COVID-19; Translations: [CONTACT W/AND (SUSP) EXPOS COVID-19] Onset: 06-09-2022 Unclassified (1 source) short cervix Onset: 09-14-2024 Unclassified (1 source) Maternal care for other (suspected) abnormality and damage, genitourinary anomalies, not applicable or unspecified; Translations: [Maternal care for other (suspected) abnormality and damage, genitourinary anomalies, not applicable or unspecified] Onset: 10-23-2024 Past or Other Problems Problem Classification Problem [...] Onset: 08-17-2022 Episodic Other female genital disorders (20 sources) Disorder of female genital system; Translations: [...] Test Name Value Interpretation Reference Range Facility [facility] UA (CLEAN/CATCH) METAL OFF BEARER/KEARA RO IF IND.on 11-26-2024 BILIRUBIN URINE Negative NEGATIVE [facility] thcare BLOOD URINE Negative NEGATIVE [facility] Clarity (U) SL CLOUDY CLEAR [facility] Color (U) LT. YELLOW YELLOW [facility] Healthcar e GLUCOSE URINE UA Negative NEGATIVE mg/dL [facility] Interpretation and review of laboratory results Abnormal [facility] Healthcare Ketones Ql (U) Negative NEGATIVE mg/dL [facility] ealthcare Leukocyte esterase Test strip Ql (U) SMALL Abnormal NEGATIVE [facility] e NITRITE URINE Negative NEGATIVE [facility] Health care pH (U) 8.0 [pH] 5.0 - 9.0 [facility] e PROTEIN URINE Negative NEG/TRACE mg/dL [facility] SPECIFIC GRAVITY URINE 1.015 1.005 - 1.025 [facility] URINE MICROSCOPIC INDICATED YES [facility] UROBILINOGEN URINE 0.2 EU/dL 0.2 - 1.0 EU/dL [facility] Healthcar e Urinalysis macro (dipstick) panel (U)on 11-07-2024 Bilirubin, UA Negative Negative - 4(70) +++ mg/dL [facility] Blood, UA Negative Negative - 50 William/mcL [facility] Clarity, UA Clear [facility] Healthca re Color, UA Yellow [facility] Health[facility] e Glucose, UA Negative Negative - 1999(110) ++++ mg/dL [facility] Interpretation and review of laboratory results Abnormal [facility] Ketones, UA Negative Negative - 160(16) ++++ mg/dL [facility] Leukocytes, UA Positive Negative - 500+++ Roma/mcL [facility] Comment on above: small Nitrite, UA Negative Negative - Positive [facility] pH, UA 6.5 5 - 9 [facility] Healthcar e Protein, UA Negative Negative - 1999(20) ++++ mg/dL [facility] Spec Grav, UA 1.015 1 - 1.03 [facility] Urobilinogen, UA 0.2 0.2 - 12 mg/dL [facility] TBH UA (CLEAN/CATCH) METAL OFF BEARER/KEARA RO IF IND.on 10-15-2024 BILIRUBIN URINE Negative NEGATIVE [facility] th[facility] BLOOD URINE Negative NEGATIVE [facility] Healthca re Clarity (U) CLEAR CLEAR [facility] re Color (U) LT. YELLOW YELLOW [facility] GLUCOSE URINE UA Negative NEGATIVE mg/dL [facility] Interpretation and review of laboratory results Abnormal [facility] Ketones Ql (U) Negative NEGATIVE mg/dL [facility] H ealthcare Leukocyte esterase Test strip Ql (U) TRACE Abnormal NEGATIVE [facility] Healthcar e NITRITE URINE Negative NEGATIVE [facility] care pH (U) 8.5 [pH] 5.0 - 9.0 [facility] PROTEIN URINE Negative NEG/TRACE mg/dL [facility] SPECIFIC GRAVITY URINE 1.015 1.005 - 1.025 [facility] URINE MICROSCOPIC INDICATED YES [facility] UROBILINOGEN URINE 0.2 EU/dL 0.2 - 1.0 EU/dL [facility] e US OB LIMITED 1+ FETUSESon 0 09-11-2024 [...] UA Negative Negative - 4(70) +++ mg/dL [facility] Blood, UA Negative Negative - 50 William/mcL [facility] Clarity, UA Clear [facility] re Color, UA Yellow [facility] Glucose, UA Negative Negative - 1999(110) ++++ mg/dL [facility] Interpretation and review of laboratory results Abnormal [facility] Ketones, UA Positive Negative - 160(16) ++++ mg/dL [facility] Comment on above: 40mg/dL Leukocytes, UA Positive Negative - 500+++ Roma/mcL [facility] Comment on above: small Nitrite, UA Negative Negative - Positive [facility] pH, UA 6.5 5 - 9 [facility] Healthcar e Protein, UA Negative Negative - 1999(20) ++++ mg/dL [facility] Spec Grav, UA 1.025 1 - 1.03 [facility] Urobilinogen, UA 0.2 0.2 - 12 mg/dL [facility] AFP, SERUM, OPEN SPINA BIFID Aon 09-01-2024 AFP MOM 1.38 . [facility] Health[facility] e AFP VALUE 86.3 ng/mL . [facility]Shoutitout e COMMENT: Comment . [facility] Health[facility] e Comment on above: Kristi Han , Ph.D., [facility] Director References: Available Upon Request. Multiples Of Median Cutoffs For AFP Elevations Barahona 2.5 Black 2.8 IDD 2.0 Twins 4.5 Abbreviation Definitions IDD - Insulin Dep Diabetes OSBR - Open Spina Bifida Risk For further inquiries contact [employer] [facility] at [phone]. This test was developed and its performance characteristics determined by [employer]. It has not been cleared or approved by the Food and Drug Administration. Performed at: [facility] [address] [place], [place] [id number] Soap Maker: Marisel Lewis [facility], Phone: [phone] GEST. AGE ON COLLECTION DATE 21.1 . weeks [facility] GESTAT. AGE BASED ON LMP . [facility] Comment on above: Recalculations are n ot recommended when gestational dating by LMP and ultrasound are within 10 days. INSULIN DEP DIABETES No . [facility] INTERPRETATION Comment . [facility] Healt hcare Comment on above: Interpretation: [...] Customer Services to discuss available options. The [employer] recommends amniocentesis be offered to women age 35 and older. MATER[age] [facility] Healthcare MULTIPLE GESTATION No . [facility] OSBR RISK 1 IN 7620 . [facility] Healt hcare RACE Black . [facility] Healthcar e RESULTS Report . [facility] [employer] TEST RESULTS: Negative . [facility] Health care WEIGHT 183 . lbs [facility] Healthcar e N N LMP [id number] [phone] N 1 183 N N N N N Black/ [facility] [employer] US OB 14+ WEEKS ANATOMY SCAN [...] UA Negative Negative - 4(70) +++ mg/dL [facility] Blood, UA Negative Negative - 50 William/mcL [facility] Clarity, UA Clear [facility] re Color, UA Yellow [facility] [employer] Glucose, UA Negative Negative - 1999(110) ++++ mg/dL [facility] Interpretation and review of laboratory results Normal [facility] Ketones, UA Negative Negative - 160(16) ++++ mg/dL [facility] Leukocytes, UA Negative Negative - 500+++ Roma/mcL [facility] Nitrite, UA Negative Negative - Positive [facility] pH, UA 7 5 - 9 [facility] e Protein, UA Negative Negative - 1999(20) ++++ mg/dL [facility] Spec Grav, UA 1.02 1 - 1.03 [facility] Urobilinogen, UA 0.2 0.2 - 12 mg/dL [facility] US OB TRANSVAGINALon 025 US [...] GDLNon AGE GDLN ACOG TESTING Note . [facility] Comment on above: TESTS RESULT FLAG UN ITS REF RANGE LAB Clinician Provided Cytology Information Source.............Cervix No. of containers..01 ThinPrep Vial Age Algo ACOG Kassidy... FLAG LEGEND: L-Low Normal,H-High Normal,LL-Alert Low,HH-Alert High <-Panic Low,>-Panic High,A-Abnormal,AA-Critical Abnormal Performed at: 01 =G [facility] [address] Cortney Arciniega MD, IGP, RFX APTIMA HPV ASCU Note . [facility] Comment on above: TESTS RESULT FLAG UN ITS REF RANGE LAB DIAGNOSIS: 02 NEGATIVE FOR INTRAEPITHELIAL LESION OR MALIGNANCY. Specimen adequacy: 02 Satisfactory for evaluation. No endocervical component is identified. Performed by: 02 Bry Segundo, Board Runner ([facility]) . 02 Note: Note 02 [...] <-Panic Low,>-Panic High,A-Abnormal,AA-Critical Abnormal Performed at: [address] [address] Cortney Arciniega MD, Performed at: = - [facility] [id number] Soap Maker: Cortney Arciniega MD, Phone: [phone] Performed at: [facility] [address] [id number] Soap Maker: Cortney Arciniega MD, Phone: [phone] SPATULA-ALONE CERVIX [facility] Healthcar e Urinalysis macro (dipstick) panel (U)on 07-16-2024 Bilirubin, UA Negative Negative - 4(70) +++ mg/dL [facility] Blood, UA Negative Negative - 50 William/mcL [facility] [employer] Clarity, UA Clear [facility] Color, UA Yellow [facility] [employer] e Glucose, UA Negative Negative - 2000(110) ++++ mg/dL [facility] Interpretation and review of laboratory results Normal [facility] Ketones, UA Negative Negative - 160(16) ++++ mg/dL [facility] Leukocytes, UA Negative Negative - 500+++ Roma/mcL [facility] Nitrite, UA Negative Negative - Positive [facility] pH, UA 8.5 5 - 9 [facility] Healthcar e Protein, UA Negative Negative - 1999(20) ++++ mg/dL [facility] Spec Grav, UA 1.02 1 - 1.03 [facility] Urobilinogen, UA 0.2 0.2 - 12 mg/dL [facility] BOX TESTon 06-14-2024 BOX TEST SENT OUT [facility] althcare [address] [facility] Healthcar e BOX2 06/14/24 [facility] UNITY BOX [facility] No Panel Informationon 06-14 [facility] Healthcar e Rubella IGG immune statuson 06-14-2024 Rubella immune IgG IMMUNE [facility] HCG ( test) Ql (U)o n 06-07-2024 Interpretation and review of laboratory results Abnormal [facility] Preg Test, Ur Positive Negative [facility] Urinalysis macro (dipstick) panel (U)on 06-07-2024 Bilirubin, UA Negative Negative - 4(70) +++ mg/dL [facility] Blood, UA Negative Negative - 50 William/mcL [facility] Clarity, UA Clear [facility] re Color, UA Yellow [facility] e Glucose, UA Negative Negative - 1999(110) ++++ mg/dL [facility] Interpretation and review of laboratory results Abnormal [facility] Ketones, UA Negative Negative - 160(16) ++++ mg/dL [facility] Leukocytes, UA Positive Negative - 500+++ Roma/mcL [facility] Comment on above: small Nitrite, UA Negative Negative - Positive [facility] pH, UA 7.5 5 - 9 [facility] Healthcar e Protein, UA Negative Negative - 1999(20) ++++ mg/dL [facility] Spec Grav, UA 1.02 1 - 1.03 [facility] Urobilinogen, UA 0.2 0.2 - 12 mg/dL [facility] Urinalysis macro (dipstick) panel (U)Ordered By: Shantel Rangel on 08-31-2023 Bilirubin, UA Negative Negative - 4(70) +++ mg/dL [facility] Blood, UA Negative Negative - 50 William/mcL [facility] Clarity, UA Clear [facility] Healthct re Color, UA Yellow [facility] Glucose, UA Negative Negative - 1999(110) ++++ mg/dL [facility] Interpretation and review of laboratory results Abnormal [facility] Ketones, UA Positive Negative - 160(16) ++++ mg/dL [facility] Leukocytes, UA Trace Negative - 500+++ Roma/mcL [facility] Nitrite, UA Negative Negative - Positive [facility] pH, UA 7.5 5 - 9 [facility] e Protein, UA Trace Negative - 1999(20) ++++ mg/dL [facility] Spec Grav, UA 1.020 1 - 1.03 [facility] Urobilinogen, UA 0.2 0.2 - 12 mg/dL [facility] PAP ACOG PANEL 2: 21 to 29on 11-17-2022 . . Normal [facility] Comment on above: Performed By: #### [id number] #### [facility] [address] [place] [address] Dr. Aleah Peres Age Gdln ACOG Testing - [facility] Comment on above: Performed By: #### [id number] #### [facility] [address] [address] [address] Aleah Peres DIAGNOSIS: Comment [facility] Comment on above: Result Comment: NEGA TIVE FOR INTRAEPITHELIAL LESION OR MALIGNANCY. Performed By: #### [id number] #### [facility] [address] [address] [address] Aleah Peres Methodology: Comment [facility] Comment on above: Result Comment: This liquid based ThinPrep(R) pap test was screened with the use of an image guided system. Performed By: #### 4 [id number] #### [facility] [address] [place] [address] Dr. Aleah Peres Note: Comment [facility] Comment on above: Result Comment: The Pap smear is a screening test designed to aid in the detection of premalignant and malignant conditions of the uterine cervix. It is not a diagnostic procedure and should not be used as the sole means of detecting cervical cancer. Both false-positive and false-negative reports do occur. . Performed By: #### 4 [id number] #### [facility] [address] [place] [address] Dr. Aleah Peres Performed by: Comment Normal [facility] Comment on above: Result Comment: Annelise Martinez Board Runner Performed By: #### 4 [id number] #### [facility] [address] [place] [address] Dr. Aleah Peres Reflex Criteria: Comment Normal [facility] Comment on above: Result Comment: The HPV DNA reflex criteria were not met with this specimen result therefore, no HPV testing was performed. . Performed By: #### 4 [id number] #### [facility] [address] [place] [address] Dr. Aleah Peres Specimen adequacy: Comment Normal [facility] Comment on above: Result Comment: Sati sfactory for evaluation. Endocervical and/or squamous metaplastic cells (endocervical component) are present. Performed By: #### 4 [id number] #### [facility] [address] [place] [address] Dr. Aleah Peres Cytology Cervical or vaginal smear or scraping studyon 11-10-2022 [facility] OCC BLD IMMUNO SCREENon 04-0 OCCULT BLOOD Negative Normal NEGATIVE [facility] Comment on above: Performed By: #### O BSCRN #### [facility] [address] [place] [address] Dr. Aleah Peres SURGICAL PATH REPORTon 10-11 SURGICAL PATH REPORT [facility] Department of Pathology [address] [place] [address] Name: CAMERON HIGGINS : 2000 [facility]ly [facility] [id number] Number: [facility] : n: Admit 22 years Attending ALEXIA BARRETT Age: Provider: Ordering ALEXIA BARRETT Provider: Consulti Surgical Pathology Report ng: ACCESSION: COLLECTED DATE/TIME: RECEIVED DATE/TIME: PATHOLOGIST: [id number] 10/08/2022 12:03 EDT 10/08/2022 12:03 EDT TOM AGUERO MD Final Diagnosis Report for [facility] [place] [place] RETAINED PRODUCTS OF CONCEPTION: - CHORIONIC [...] ald 10/08/2022 Tissue pathology report for: [facility], [address] [place] [address]; ____ Print 10/11/2022 15:01 EDT Number: Date/Time: [facility] Department of Pathology [address] [place] [id number] Name: CAMERON HIGGINS : 2000 [facility] [id number] Number: Gender Female Peter OLMOS HEMET : n: Admit 22 years Attending ALEXIA BARRETT Age: Provider: ALEXIA Yuan Provider: Consulti Surgical Pathology Report ng: ACCESSION: COLLECTED DATE/TIME: RECEIVED DATE/TIME: PATHOLOGIST: [id number] 10/08/2022 12:03 EDT 10/08/2022 12:03 EDT TOM AGUERO MD Gross Description PATHOLOGY SERVICES PROVIDED BY [employer] (CLIA #[id number]) in cooperation with [facility] at [address] [place] [address] ( CLIA #[id number]) Codes CPT CODE: 36713 ____ Print 10/11/2022 15:01 EDT Number: Date/Time: Normal [facility] Comment on above: Performed By: #### [id number] #### [facility] [address] [place] [address] Lime Puller: Tom Aguero MD URon 10-08-2022 , QUAL Negative Normal NEGATIVE [facility] Comment on above: Performed By: #### P REGU #### [facility] [address] [place] [address] Dr. Aleah Peres US PELVIS AND TRANSVAGon [...] PIPPA ORTEGA Date: 2022-10-06 14:55 Normal [facility] SURGICAL PATH REPORTon 09-16 SURGICAL PATH REPORT [facility] Department of Pathology [address] [place] [phone] Name: ALEXANDRA HIGGINS : 2000 [facility] [id number] Number: Gender Female Peter OLMOS HEMET : n: Admit 22 years Attending ANDRZEJ HODGE Age: Provider: Ordering ANDRZEJ HODGE Provider: Consulti Surgical Pathology Report ng: ACCESSION: COLLECTED DATE/TIME: RECEIVED DATE/TIME: PATHOLOGIST: [id number] 09/15/2022 12:34 EST 09/15/2022 12:34 EST LILLIE KHNA, LUIS ERAZO Final Diagnosis Report for [facility] [place] PRODUCTS OF CONCEPTION, DILATION AND CURETTAGE: - CHORIONIC VILLI ARE PRESENT; NO SIGNIFICANT ATYPIA IS OBSERVED. - BENIGN MATERIAL DECIDUA PRESENT. - NO PARTS ARE IDENTIFIED. LUIS MOREIRA PATHOLOGIST (Electronic Signature) Date Verified 09/16/2022 LN Clinical Data PRE-OP DIAGNOSIS: Not specified POST-OP DIAGNOSIS: Missed PROCEDURES: D and C with suction SPECIMEN: Products of conception / personal care attendant Gross Description Labeled products of conception. Received in formalin in a suction sock are multiple irregular segments of medrano pink to red black soft tissue. The individual segments have a variable granular to partially smooth glistening membranous character. The specimen in total aggregate measures 12.5 x 7.5 x 4.0 cm. There are no grossly identifiable parts. Teletypesetter Monitor sections are submitted in three cassettes. MP/ald 09/15/2022 ____ Print 09/16/2022 14:53 EST Number: Date/Time: [facility] Department of Pathology [address] [place], [place] [id number] Name: ALEXANDRA HIGGINS : 2000 [employer] [id number] Number: Gender [facility] : n: Admit 22 years Attending ANDRZEJ HODGE Age: Provider: Ordering ANDRZEJ HODGE Provider: Consulti Surgical Pathology Report ng: ACCESSION: COLLECTED DATE/TIME: RECEIVED DATE/TIME: PATHOLOGIST: [id number] 09/15/2022 12:34 EST 09/15/2022 12:34 EST LILLIE KHAN, LUIS ERAZO Gross Description Tissue pathology report for: [facility], [address] [place] [address]; PATHOLOGY SERVICES PROVIDED BY [employer] (CLIA #[id number]) in cooperation with [facility] at [address] [place] [address] ( CLIA #[id number]) Codes CPT CODE: 16156 ____ Print 09/16/2022 14:53 EST Number: Date/Time: Normal [facility] Comment on above: Performed By: #### [id number] #### [facility] [address] [place], [place] [id number] Lime Puller: Tom Aguero MD CBC AUTO DIFFon 09-15-2022 BASO # 0.0 103/ul Normal 0.0-0.1 [facility] Comment on above: Performed By: #### C BC #### [facility] [address] [place] [address] Dr. Aleah Peres Basophils/100 WBC (Bld) 0.4 % Normal 0.2-2.0 [facility] Comment on above: Performed By: #### C BC #### [facility] [address] [place] [address] Dr. Aleah Peres EO # 0.1 103/ul Normal 0.0-0.7 [facility] Comment on above: Performed By: #### C BC #### [facility] [address] [place] [address] Dr. Aleah Peres Eosinophils/100 WBC (Bld) 1.3 % Normal 0.9-7.0 [facility] Comment on above: Performed By: #### C BC #### [facility] [address] [place] [address] Dr. Aleah Peres Erythrocyte distribution width (RBC) [Ratio] 13.8 % Normal 11.0-15.0 [facility] Comment on above: Performed By: #### C BC #### [facility] [address] [place] [address] Dr. Aleah Peres Hematocrit (Bld) [Volume fraction] 35.5 % Critically low 36.0-48.0 [facility] Comment on above: Performed By: #### C BC #### [facility] [address] [place] [address] Dr. Aleah Peres Hemoglobin (Bld) [Mass/Vol] 11.6 g/dL Critically low 12.0-16.0 [facility] Comment on above: Performed By: #### C BC #### [facility] [address] [place] [address] Dr. Aleah Peres IG # 0.03 10e3/ul Normal 0.00-0.03 [facility] Comment on above: Performed By: #### C BC #### [facility] [address] [place] [address] Dr. Aleah Peres IG % 0.4 % Normal 0.0-0.5 [facility] Comment on above: Performed By: #### C BC #### [facility] [address] [place] [address] Dr. Aleah Peres LYMPH # 2.8 103/ul Normal 1.2-3.8 [facility] Comment on above: Performed By: #### C BC #### [facility] [address] [place] [address] Dr. Aleah Peres Lymphocytes/100 WBC (Bld) 32.9 % Normal 20.5-60.0 [facility] Comment on above: Performed By: #### C BC #### [facility] [address] [place] [address] Dr. Aleah Peres MANUAL DIFF REQ NO Normal [facility] Comment on above: Performed By: #### C BC #### [facility] [address] [place] [address] Dr. Aleah Peres MCH (RBC) [Entitic mass] 26.9 pg Normal 26.7-34.0 [facility] Comment on above: Performed By: #### C BC #### [facility] [address] [place] [address] Dr. Aleah Peres MCHC (RBC) [Mass/Vol] 32.7 g/dL Normal 29.9-35.2 [facility] Comment on above: Performed By: #### C BC #### [facility] [address] [place] [address] Dr. Aleah Peres MCV (RBC) [Entitic vol] 82.4 fL Normal 81.0-99.0 [facility] Comment on above: Performed By: #### C BC #### [facility] [address] [place] [address] Dr. Aleah Peres MONO # 0.7 103/ul Normal 0.3-0.8 [facility] Comment on above: Performed By: #### C BC #### [facility] [address] [place] [address] Dr. Aleah Peres Monocytes/100 WBC (Bld) 8.6 % Normal 1.7-12.0 [facility] Comment on above: Performed By: #### C BC #### [facility] [address] [place] [address] Dr. Aleah Peres NEUT # 4.8 103/ul Normal 1.4-6.5 [facility] Comment on above: Performed By: #### C BC #### [facility] [address] [place] [address] Dr. Aleah Peres Neutrophils/100 WBC (Bld) 56.4 % Normal 43.0-75.0 [facility] Comment on above: Performed By: #### C BC #### [facility] [address] [place] [address] Dr. Aleah Peres Platelet mean volume (Bld) [Entitic vol] 9.9 fL Normal 9.5-13.5 [facility] Comment on above: Performed By: #### C BC #### [facility] [address] [place] [address] Dr. Aleah Peres PLT 316 103/ul Normal 150-450 [facility] Comment on above: Performed By: #### C BC #### [facility] [address] [place] [address] Dr. Aleah Peres RBC 4.31 106/ul Normal 4.20-5.40 [facility] Comment on above: Performed By: #### C BC #### [facility] [address] [place] [address] Dr. Aleah Peres WBC 8.4 103/ul Normal 4.0-11.0 [facility] Comment on above: Performed By: #### C BC #### [facility] [address] [place] [address] Dr. Aleah Peres PREG QUANT HCGon 09-15-2022 HCG QUANT 06336 mIU/mL Normal [facility] Comment on above: Performed By: #### P REGQNT #### [facility] [address] [place] [address] Dr. Aleah Peres HCG RANGE SEE BELOW Normal [facility] Comment on above: Result Comment: 5-50 0.2-1 WEEK 50-500 1-2 WEEKS 100-5,000 2-3 WEEKS 500-10,000 3-4 WEEKS 1,000-50,000 4-5 WEEKS 10,000-100,000 5-6 WEEKS 15,000-200,000 6-8 WEEKS 10,000-100,000 2-3 MONTHS Performed By: #### P REGQNT #### [facility] [address] [place], [place] [address] Dr. Aleah Peres TYPE AND SCREENon 09-15-2022 TYPE AND SCREEN Negative Normal [facility] Comment on above: Performed By: #### P REGQNT #### [facility] [address] [place], [place] [address] Dr. Aleah Peres US PELVISon 09-15-2022 US PELVIS EXAMINATION: US PELVIS HISTORY: Spontaneous COMPARISON: No relevant comparison available. TECHNIQUE: Transabdominal and transvaginal sonographic examination. FINDINGS: UTERUS: Small amount of fluid within endometrial cavity. No visible retained products of conception. IMPRESSION: 1. No appreciable retained products of conception within uterine cavity. Electronically authenticated by: ASHLEY NOEL Date: 2022-09-15 15:42 Normal [facility] US PREG TVon 09-13-2022 US PREG [...] Right ovary was not identified. Normal [facility] CBC AUTO DIFFon 08-16-2022 BASO # 0.0 103/ul Normal 0.0-0.1 [facility] Comment on above: Performed By: #### C BC #### [facility] [address] [place] [address] Dr. Aleah Peres Basophils/100 WBC (Bld) 0.4 % Normal 0.2-2.0 [facility] Comment on above: Performed By: #### C BC #### [facility] [address] [place] [address] Dr. Aleah Peres EO # 0.1 103/ul Normal 0.0-0.7 [facility] Comment on above: Performed By: #### C BC #### [facility] [address] [place] [address] Dr. Aleah Peres Eosinophils/100 WBC (Bld) 1.4 % Normal 0.9-7.0 [facility] Comment on above: Performed By: #### C BC #### [facility] [address] [place] [address] Dr. Aleah Peres Erythrocyte distribution width (RBC) [Ratio] 13.6 % Normal 11.0-15.0 [facility] Comment on above: Performed By: #### C BC #### [facility] [address] [place] [address] Dr. Aleah Peres Hematocrit (Bld) [Volume fraction] 32.4 % Critically low 36.0-48.0 [facility] Comment on above: Performed By: #### C BC #### [facility] [address] [place] [address] Dr. Aleah Peres Hemoglobin (Bld) [Mass/Vol] 11.2 g/dL Critically low 12.0-16.0 [facility] Comment on above: Performed By: #### C BC #### [facility] [address] [place] [address] Dr. Aleah Peres IG # 0.02 10e3/ul Normal 0.00-0.03 [facility] Comment on above: Performed By: #### C BC #### [facility] [address] [place] [address] Dr. Aleah Peres IG % 0.3 % Normal 0.0-0.5 [facility] Comment on above: Performed By: #### C BC #### [facility] [address] [place] [address] [address] Aleah Peres LYMPH # 2.4 103/ul Normal 1.2-3.8 [facility] Comment on above: Performed By: #### C BC #### [facility] [address] [place] [address] [address] Aleah Peres Lymphocytes/100 WBC (Bld) 32.3 % Normal 20.5-60.0 [facility] Comment on above: Performed By: #### C BC #### [facility] [address] [place] [address] Dr. Aleah Peres MANUAL DIFF REQ NO Normal [facility] Comment on above: Performed By: #### C BC #### [facility] [address] [place] [address] Dr. Aleah Peres MCH (RBC) [Entitic mass] 26.9 pg Normal 26.7-34.0 [facility] Comment on above: Performed By: #### C BC #### [facility] [address] [place] [address] Dr. Aleah Peres MCHC (RBC) [Mass/Vol] 34.6 g/dL Normal 29.9-35.2 [facility] Comment on above: Performed By: #### C BC #### [facility] [address] [place] [address] Dr. Aleah Peres MCV (RBC) [Entitic vol] 77.9 fL Critically low 81.0-99.0 [facility] Comment on above: Performed By: #### C BC #### [facility] [address] [place] [address] Dr. Aleah Peres MONO # 0.7 103/ul Normal 0.3-0.8 [facility] Comment on above: Performed By: #### C BC #### [facility] [address] [place] [address] Dr. Aleah Peres Monocytes/100 WBC (Bld) 9.1 % Normal 1.7-12.0 [facility] Comment on above: Performed By: #### C BC #### [facility] [address] [place] [address] [address] Aleah Peres NEUT # 4.1 103/ul Normal 1.4-6.5 [facility] Comment on above: Performed By: #### C BC #### [facility] [address] [place] [address] [address] Aleah Peres Neutrophils/100 WBC (Bld) 56.5 % Normal 43.0-75.0 [facility] Comment on above: Performed By: #### C BC #### [facility] [address] [place] [address] [address] Aleah Peres Platelet mean volume (Bld) [Entitic vol] 9.4 fL Critically low 9.5-13.5 [facility] Comment on above: Performed By: #### C BC #### [facility] [address] [place] [address] Dr. Aleah Peres PLT 303 103/ul Normal 150-450 [facility] Comment on above: Performed By: #### C BC #### [facility] [address] [place] [address] Dr. Aleah Peres RBC 4.16 106/ul Critically low 4.20-5.40 [facility] Comment on above: Performed By: #### C BC #### [facility] [address] [place] [address] Dr. Aleah Peres WBC 7.3 103/ul Normal 4.0-11.0 [facility] Comment on above: Performed By: #### C BC #### [facility] [address] [place] [address] Dr. Aleah Peres ER URINE PROFILEon 3 Bilirubin Ql (U) Negative Normal NEGATIVE [facility] Comment on above: Performed By: #### E RUR #### [facility] [address] [place] [address] Dr. Aleah Peres Clarity (U) CLEAR Normal CLEAR [facility] Comment on above: Performed By: #### E RUR #### [facility] [address] [place], [place] [id number] Dr. Aleah Peres Color (U) YELLOW Normal YELLOW [facility] Comment on above: Performed By: #### E RUR #### [facility] [address] [place] [address] Dr. Aleah OMALLEY A micrscopic examination will be performed if indicated. Normal [facility] Comment on above: Performed By: #### E RUR #### [facility] [address] [place] [address] Dr. Aleah Peres Glucose Ql (U) Negative Normal NEGATIVE [facility] Comment on above: Performed By: #### E RUR #### [facility] [address] [place] [address] Dr. Aleah Peres Hemoglobin Ql (U) Negative Normal NEGATIVE [facility] Comment on above: Performed By: #### E RUR #### [facility] [address] [place] [address] Dr. Aleah Peres Ketones Ql (U) Negative Normal NEGATIVE [facility] Comment on above: Performed By: #### E RUR #### [facility] [address] [place] [address] Dr. Aleah Peres LEUKOCYTES Negative Normal NEGATIVE [facility] Comment on above: Performed By: #### E RUR #### [facility] [address] [place] [address] Dr. Aleah Peres Nitrite Ql (U) Negative Normal NEGATIVE [facility] Comment on above: Performed By: #### E RUR #### [facility] [address] [place] [address] Dr. Aleah Peres pH (U) 6.0 [pH] Normal 5-9 [facility] Comment on above: Performed By: #### E RUR #### [facility] [address] [place] [address] Dr. Aleah Peres SPEC GRAVITY 1.020 Normal 1.005-<=1.025 [facility] Comment on above: Performed By: #### E RUR #### [facility] [address] [place] [address] Dr. Aleah Peres UA PROTEIN Negative Normal NEGATIVE/ TRACE [facility] Comment on above: Performed By: #### E RUR #### [facility] [address] [place] [address] [address] Aleah Peres UR MICRO IND NOT INDICATED Normal [facility] Comment on above: Performed By: #### E RUR #### [facility] [address] [place] [address] Dr. Aleah Peres Urobilinogen Qn (U) 0.2 {Edmund'U}/dL Normal 0.2 - 1. 0 [facility] Comment on above: Performed By: #### E RUR #### [facility] [address] [place] [address] [address] Aleah Peres PROF 14(COMP METB)on 023 Albumin [Mass/Vol] 3.0 g/dL Critically low 3.4-5.0 [facility] Comment on above: Performed By: #### C MP #### [facility] [address] [place] [address] Dr. Aleah Peres Albumin/Globulin [Mass ratio] 0.8 {ratio} Normal [facility] Comment on above: Performed By: #### C MP #### [facility] [address] [place] [address] Dr. Aleah Peres ALP [Catalytic activity/Vol] 52 U/L Normal 46-116 [facility] Comment on above: Performed By: #### C MP #### [facility] [address] [place] [address] Dr. Aleah Peres ALT [Catalytic activity/Vol] 15 U/L Normal 14-59 [facility] Comment on above: Performed By: #### C MP #### [facility] [address] [place] [address] [address] Aleah Peres Anion gap [Moles/Vol] 10.2 mmol/L Normal [facility] Comment on above: Performed By: #### C MP #### [facility] [address] [place] [address] Dr. Aleah Peres AST [Catalytic activity/Vol] 13 U/L Critically low 15-37 [facility] Comment on above: Performed By: #### C MP #### [facility] [address] [place] [address] [address] Aleah Peres Bilirubin [Mass/Vol] 0.2 mg/dL Normal 0.2-1.0 [facility] Comment on above: Performed By: #### C MP #### [facility] [address] [place] [address] [address] Aleah Peres Calcium [Mass/Vol] 9.1 mg/dL Normal 8.5-10.1 [facility] Comment on above: Performed By: #### C MP #### [facility] [address] [place] [address] [address] Aleah Peres Chloride [Moles/Vol] 100 mmol/L Normal 98-107 [facility] Comment on above: Performed By: #### C MP #### [facility] [address] [place] [address] [address] Aleah Peres CO2 [Moles/Vol] 28.8 mmol/L Normal 21.0-32.0 [facility] Comment on above: Performed By: #### C MP #### [facility] [address] [place] [address] [address] Aleah Peres Creatinine [Mass/Vol] 0.56 mg/dL Normal 0.55-1.02 [facility] Comment on above: Performed By: #### C MP #### [facility] [address] [place] [address] [address] Aleah Peres EGFR-AF COMORAN >60 Normal >=60 [facility] Comment on above: Performed By: #### C MP #### [facility] [address] [place] [address] [address] Aleah Peres EGFR-NON AF COMORAN >60 Normal >=60 [facility] Comment on above: Performed By: #### C MP #### [facility] [address] [place] [address] [address] Aleah Peres Globulin (S) [Mass/Vol] 3.9 g/dL Normal [facility] Comment on above: Performed By: #### C MP #### [facility] [address] [place] [address] [address] Aleah Peres Glucose [Mass/Vol] 90 mg/dL Normal 74-106 [facility] Comment on above: Performed By: #### C MP #### [facility] [address] [place] [address] [address] Aleah Peres Potassium [Moles/Vol] 4.0 mmol/L Normal 3.5-5.1 [facility] Comment on above: Performed By: #### C MP #### [facility] [address] [place] [address] [address] Aleah Peres Protein [Mass/Vol] 6.9 g/dL Normal 6.4-8.2 [facility] Comment on above: Performed By: #### C MP #### [facility] [address] [place] [address] [address] Aleah Peres Sodium [Moles/Vol] 135 mmol/L Critically low 136-145 [facility] Comment on above: Performed By: #### C MP #### [facility] [address] [place] [address] [address] Aleah Peres Urea nitrogen [Mass/Vol] 4.0 mg/dL Critically low 7.0-18.0 [facility] Comment on above: Performed By: #### C MP #### [facility] [address] [place] [address] [address] Aleah Peres Urea nitrogen/Creatinine [Mass ratio] 7.1 mg/mg Normal [facility] Comment on above: Performed By: #### C MP #### [facility] [address] [place] [address] [address] Aleah Peres PAP ACOG PANEL 2: 21 to 28on 08-02-2022 . . Normal [facility] Comment on above: Result Comment: Perf ormed at: WB Performed By: #### [id number] #### [facility] [address] [place] [address] [address] Aleah Peres Age Gdln ACOG Testing - [facility] Comment on above: Performed By: #### [id number] #### [facility] [address] [place] [address] [address] Aleah Peres DIAGNOSIS: Comment Abnormal [facility] Comment on above: Result Comment: EPIT HELIAL CELL ABNORMALITY. LOW GRADE SQUAMOUS INTRAEPITHELIAL LESION (LSIL). Performed at: WB Performed By: #### [id number] #### [facility] [address] [place] [address] [address] Aleah Peres Electronically signed by: Comment Normal [facility] Comment on above: Result Comment: Amena Arciniega MD, Pathologist Performed at: WB Performed By: #### [id number] #### [facility] [address] [place] [address] [address] Aleah Peres Methodology: Comment Normal [facility] Comment on above: Result Comment: This liquid based ThinPrep(R) pap test was screened with the use of an image guided system. Performed at: WB Performed By: #### [id number] #### [facility] [address] [place] [address] Dr. Aleah Peres Note: Comment Normal [facility] Comment on above: Result Comment: The Pap smear is a screening test designed to aid in the detection of premalignant and malignant conditions of the uterine cervix. It is not a diagnostic procedure and should not be used as the sole means of detecting cervical cancer. Both false-positive and false-negative reports do occur. . Performed at: WB Performed By: #### [id number] #### [facility] [address] [place] [address] [address] Aleah Peres Pathologist Provided ICD10 Comment Normal [facility] Comment on above: Result Comment: [id number] Performed at: WB Performed By: #### [id number] #### [facility] [address] [place] [address] [address] Aleah Peres Performed by: Comment Normal [facility] Comment on above: Result Comment: Caitlyn Crenshaw, Board Runner (ASCP) Performed at: BA Performed By: #### [id number] #### [facility] [address] [place] [address] [address] Aleah Peres Recommendation: Comment Abnormal [facility] Comment on above: Result Comment: Sugg est follow up as clinically appropriate. Performed at: WB Performed By: #### [id number] #### [facility] [address] [place] [address] Dr. Aleah Peres Reflex Criteria: Comment Normal [facility] Comment on above: Result Comment: The HPV DNA reflex criteria were not met with this specimen result therefore, no HPV testing was performed. . Performed at: WB Performed By: #### [id number] #### [facility] [address] [place] [address] Dr. Aleah Peres Specimen adequacy: Comment Normal [facility] Comment on above: Result Comment: Sati sfactory for evaluation. Endocervical and/or squamous metaplastic cells (endocervical component) are present. Performed at: WB Performed By: #### [id number] #### [facility] [address] [place] [address] Dr. Aleah Peres Covid-19 PCR ([facility])on 05-25 SARS-CoV-2 (COVID-19) RNA MARY ELLEN+probe Ql (Unsp spec) Not detected Normal NOT DETECTED [facility] Comment on above: Result Comment: When [...] for this test is supported by the [place] of Health and Human Service's declaration that [...] used). Performed By: #### P REGQNT #### [facility] [address] [place] [address] Dr. Aleah Peres Vital Signs Date Time Vital Sign Value Performing Clinician Nelly smith 12-04-2024 13:53-0400 Body mass index (BMI) [Ratio] 32.34 kg/m2 Andrzej Ayesha DO Work Phone: [facility] 12-04-2024 13:53-0400 Body weight 84.14 kg Andrzej Ayesha DO Work Phone: [facility] 12-04-2024 13:53-0400 Diastolic blood pressure 70 mm[Hg] Andrzej Ayesha DO Work Phone: [facility] 12-04-2024 13:53-0400 Systolic blood pressure 116 mm[Hg] Andrzej Ayesha DO Work Phone: [facility] 11-21-2024 14:18-0400 Body mass index (BMI) [Ratio] 32.15 kg/m2 Henrique Wang [employer] Work Phone: [facility] 11-21-2024 14:18-0400 Body weight 83.64 kg Henrique Wang [employer] Work Phone: [facility] 11-21-2024 14:06-0400 Diastolic blood pressure 70 mm[Hg] Henrique Felipe [employer] DES[employer]ER Work Phone: [facility] 11-21-2024 14:06-0400 Systolic blood pressure 102 mm[Hg] Henrique Felipe [employer]ER Work Phone: [facility] 11-07-2024 11:37-0400 Body mass index (BMI) [Ratio] 32.13 kg/m2 Andrzej Ayesha DO Work Phone: [facility] 11-07-2024 11:37-0400 Body weight 83.58 kg Andrzej Ayesha DO Work Phone: [facility] 11-07-2024 11:37-0400 Diastolic blood pressure 72 mm[Hg] Andrzej Ayesha DO Work Phone: [facility] 11-07-2024 11:37-0400 Systolic blood pressure 116 mm[Hg] Andrzej Ayesha DO Work Phone: [facility] 10-24-2024 11:24-0400 Body mass index (BMI) [Ratio] 32.34 kg/m2 Amy Dobbins PA Work Phone: [facility] 10-24-2024 11:24-0400 Body weight 84.14 kg Mis PA Work Phone: [facility] 10-24-2024 11:24-0400 Diastolic blood pressure 66 mm[Hg] [place] PA Work Phone: [facility] 10-24-2024 11:24-0400 Systolic blood pressure 112 mm[Hg] Amy Dobbins PA Work Phone: [facility] 10-09-2024 11:20-0400 Body mass index (BMI) [Ratio] 32.15 kg/m2 Andrzej Ayesha DO Work Phone: [facility] 10-09-2024 11:20-0400 Body weight 83.64 kg Andrzej Ayesha DO Work Phone: [facility] 10-09-2024 11:20-0400 Diastolic blood pressure 68 mm[Hg] Andrzej Ayesha DO Work Phone: [facility] 10-09-2024 11:20-0400 Systolic blood pressure 102 mm[Hg] Andrzej Ayesha DO Work Phone: [facility] 09-14-2024 10:29-0500 Body height 160 cm Los Hollins MD Work Phone: [facility] 09-14-2024 10:29-0500 Body mass index (BMI) [Ratio] 32.24 kg/m2 Los Hollins MD Work Phone: [facility] 09-14-2024 10:29-0500 Body weight 82.56 kg Los Hollins MD Work Phone: [facility] 09-14-2024 10:29-0500 Diastolic blood pressure 59 mm[Hg] Los Hollins MD Work Phone: [facility] 09-14-2024 10:29-0500 Heart rate 80 /min Los Hollins MD Work Phone: [facility] 09-14-2024 10:29-0500 Systolic blood pressure 97 mm[Hg] Los Hollins MD Work Phone: [facility] 09-11-2024 11:24-0500 Body mass index (BMI) [Ratio] 31.58 kg/m2 Mis PA Work Phone: [facility] 09-11-2024 11:24-0500 Body weight 82.16 kg Mis PA Work Phone: [facility] 09-11-2024 11:24-0500 Diastolic blood pressure 70 mm[Hg] [place] PA Work Phone: [facility] 09-11-2024 11:24-0500 Systolic blood pressure 98 mm[Hg] Mis PA Work Phone: [facility] 08-14-2024 12:05-0500 Body mass index (BMI) [Ratio] 31.91 kg/m2 Andrzej Ayesha DO Work Phone: [facility] 08-14-2024 12:05-0500 Body weight 83.01 kg Andrzej Ayesha DO Work Phone: [facility] 08-14-2024 12:05-0500 Diastolic blood pressure 60 mm[Hg] Andrzej Ayesha DO Work Phone: [facility] 08-14-2024 12:05-0500 Systolic blood pressure 110 mm[Hg] Andrzej Ayesha DO Work Phone: [facility] 07-16-2024 10:25-0500 Body mass index (BMI) [Ratio] 30.71 kg/m2 May Mis PA Work Phone: [facility] 07-16-2024 10:25-0500 Body weight 79.89 kg Mis PA Work Phone: [facility] 07-16-2024 10:25-0500 Diastolic blood pressure 70 mm[Hg] Amy VILLATORO Work Phone: [facility] 07-16-2024 10:25-0500 Systolic blood pressure 120 mm[Hg] Amy VILLATORO Work Phone: [facility] 06-07-2024 13:39-0500 Body mass index (BMI) [Ratio] 31.35 kg/m2 Nom Nurse [facility] 06-07-2024 13:39-0500 Body weight 81.56 kg [facility] Nurse [facility] 06-07-2024 13:39-0500 Diastolic blood pressure 70 mm[Hg] [facility] Nurse [facility] 06-07-2024 13:39-0500 Systolic blood pressure 118 mm[Hg] [facility] Nurse [facility] 05-31-2024 09:40-0500 Body mass index (BMI) [Ratio] 30.86 kg/m2 Amy VILLATORO Work Phone: [facility] 05-31-2024 09:40-0500 Body weight 80.29 kg Amy VILLATORO Work Phone: [facility] 05-31-2024 09:40-0500 Diastolic blood pressure 72 mm[Hg] Amy VILLATORO Work Phone: [facility] 05-31-2024 09:40-0500 Systolic blood pressure 118 mm[Hg] Amy VILLATORO Work Phone: [facility] 08-31-2023 13:43-0500 Body mass index (BMI) [Ratio] 33.2 kg/m2 Andrzej Ayesha DO Work Phone: [facility] 08-31-2023 13:43-0500 Body weight 86.36 kg Andrzej Ayesha DO Work Phone: [facility] 08-31-2023 13:43-0500 Diastolic blood pressure 70 mm[Hg] Andrzej Ayesha DO Work Phone: [facility] 08-31-2023 13:43-0500 Systolic blood pressure 114 mm[Hg] Andrzej Ayesha DO Work Phone: [facility] Healthcare Encounters Encounter Date Encounter Type Care Provider Facility Start: 12-04-2024 End: 12-04-2024 Bamboo flowsheet Andrzej Ayesha DO Work Phone: [facility] Start: 12-04-2024 End: 12-04-2024 Bamboo flowsheet Andrzej Ayesha DO Work Phone: [facility] Start: 12-04-2024 End: 12-04-2024 ambulatory ANDRZEJ AYESHA Not Available Start: 12-04-2024 End: 12-04-2024 Office outpatient visit 15 minutes Andrzej Ayesha DO Work Phone: [facility] Comment on above: Third trimester preg hanh; 34 weeks gestation of Start: 11-26-2024 End: 11-26-2024 Clinisync Result Encounter Andrzej Ayesha DO Work Phone: [facility] Unsolicited Start: 11-26-2024 End: 11-26-2024 Clinisync Result Encounter Andrzej Ayesha DO Work Phone: [facility] Unsolicited Start: 11-22-2024 End: 11-22-2024 ambulatory [facility] Start: 11-21-2024 End: 11-21-2024 Bamboo flowsheet Henrique Wang [employer]S DESIGNER Work Phone: [facility] Start: 11-21-2024 End: 11-21-2024 Bamboo flowsheet Henrique Wang [employer]S DESIGNER Work Phone: [facility] Start: 11-21-2024 End: 11-21-2024 ambulatory HENRIQUE FELIPE Not Available Start: 11-21-2024 End: 11-21-2024 flow sheet Henrique Wang [employer] DES[employer]ER Work Phone: [facility] Comment on above: Third trimester preg hanh; 33 weeks gestation of Start: 11-07-2024 End: 11-07-2024 Bamboo flowsheet Andrzej Ayesha DO Work Phone: [facility] Start: 11-07-2024 End: 11-07-2024 Bamboo flowsheet Andrzej Ayesha DO Work Phone: [facility] Start: 11-07-2024 End: 11-07-2024 ambulatory ANDRZEJ AYESHA Not Available Start: 11-07-2024 End: 11-07-2024 Office outpatient visit 15 minutes Andrzej Ayehsa DO Work Phone: [facility] Comment on above: Third trimester preg hanh; 31 weeks gestation of ; Short cervix affecting Start: 10-24-2024 End: 10-24-2024 Bamboo flowsheet Amy VILLATORO Work Phone: [facility] Start: 10-24-2024 End: 10-24-2024 Bamboo flowsheet Amy VILLATORO Work Phone: [facility] Start: 10-24-2024 End: 10-24-2024 Telephone encounter Valerie Ramirez [facility] Start: 10-24-2024 End: 10-24-2024 Office outpatient visit 15 minutes Amy VILLATORO Work Phone: [facility] Comment on above: Third trimester preg hanh; 29 weeks gestation of Start: 10-24-2024 End: 10-24-2024 ambulatory AMY DOBBINS Not Available Start: 10-23-2024 End: 10-23-2024 ambulatory ANDRZEJ R AYESHA [facility] Start: 10-15-2024 End: 10-15-2024 Clinisync Result Encounter Andrzej Ayesha DO Work Phone: [facility] Unsolicited Start: 10-15-2024 End: 10-15-2024 Clinisync Result Encounter Andrzej Ayesha DO Work Phone: [facility] Unsolicited Start: 10-09-2024 End: 10-09-2024 Office outpatient visit 15 minutes Andrzej Ayesha DO Work Phone: [facility] Comment on above: Second trimester pre gnancy; 26 weeks gestation of Start: 10-09-2024 End: 10-09-2024 ambulatory ANDRZEJ AYESHA Not Available Start: 09-14-2024 End: 09-14-2024 Office consultation new/estab patient 60 min Los Hollins MD Work Phone: [facility] Comment on above: 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) Start: 09-14-2024 End: 09-14-2024 Orders Only Sharla Dunham RN [facility] Comment on above: Short cervix affecti ng (Primary Dx); Encounter for repeat ultrasound of pyelectasis, antepartum, single or unspecified fetus Start: 09-13-2024 End: 09-14-2024 Chart abstracting Los Hollins MD Work Phone: [facility] Start: 09-11-2024 End: 09-11-2024 ambulatory [...] Bamboo flowsheet Andrzej Ayesha DO Work Phone: [facility] Start: 08-14-2024 End: 08-14-2024 Office outpatient visit 15 minutes Andrzej Ayesha DO Work Phone: [facility] Comment on above: 18 weeks gestation o f ; Second trimester ; Screening, , for anatomic survey; Other headache syndrome; Constipation, unspecified constipation type Start: 08-14-2024 End: 08-14-2024 ambulatory ANDRZEJ AYESHA Not Available Start: 08-01-2024 End: 08-01-2024 ambulatory ANDRZEJ AYESHA Not Available Start: 07-16-2024 End: 07-16-2024 Bamboo flowsheet Amy VILLATORO Work Phone: [facility] Start: 07-16-2024 End: 07-24-2024 Bamboo flowsheet Amy VILLATORO Work Phone: [facility] Start: 07-16-2024 End: 07-24-2024 Clinisync Result Encounter Amy VILLATORO Work Phone: [facility] External Department Unsolicited Start: 07-16-2024 End: 07-16-2024 ambulatory AMY DOBBINS Not Available Start: 07-16-2024 End: 07-16-2024 Patient encounter procedure Amy VILLATORO Work Phone: [facility] Start: 07-16-2024 End: 07-16-2024 Periodic preventive med est patient 18-39 yrs Amy VILLATORO Work Phone: [facility] Comment on above: Screening, , for anatomic survey; Well woman exam with routine gynecological exam; 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 Comment on above: Encounter for pre-em ployment drug testing (Primary Dx) Start: 08-31-2023 End: 08-31-2023 Office outpatient visit 15 minutes Andrzej Ayesha DO Work Phone: [facility] Comment on above: Third trimester preg hanh Start: 11-10-2022 End: 11-10-[address] ALEXIA BARRETT . Facility:[facility] Start: 10-22-2022 End: 10-23-2022 ambulatory NATASHA CAMARA . Facility:[facility] Start: 10-08-2022 End: 10-09-2022 ambulatory ALEXIA BARRETT Facility:[facility] Start: 10-08-2022 End: 10-08-[address] ALEXIA BARRETT . Facility:[facility] Start: 10-06-2022 End: 10-07-[address] ALEXIA BARRETT . Facility:[facility] Start: 09-17-2022 Encounter for other preprocedural examination DR ANDRZEJ HODGE . [facility] Start: 09-15-2022 End: 09-16-2022 ambulatory ANDRZEJ HODGE Facility:[facility] Start: 09-15-2022 End: 09-15-[address] [...] Date Procedure Procedure Detail Performing Clinician Start: 11-26-2024 [facility] UA (CLEAN/CATCH) METAL OFF BEARER/MICRO IF IND. Andrzej Ayesha DO Work Phone: Start: 11-07-2024 Urnls dip stick/tabl et rgnt non-auto w/o micrscp Andrzej Ayesha DO Work Phone: Start: 10-15-2024 [facility] UA (CLEAN/CATCH) METAL OFF BEARER/MICRO IF IND. Andrzej Ayesha DO Work Phone: Start: 09-11-2024 Urnls dip stick/tabl et rgnt [...] for malignant neoplasm of cervix Pap Smear [facility] Start: 09-14-2025 Adult BMI Screening Adult BMI Screen ing [facility] Start: 09-14-2025 Tobacco Screening [facility] Start: 09-14-2025 End: 09-14-2025 US MFM with or without consult US MFM with or without consult Imaging Routine Short cervix affecting Encounter for repeat ultrasound of pyelectasis, antepartum, single or unspecified fetus Expected: 09/14/2025 (Approximate), Expires: 09/14/2025 [employer] Work Phone: Comment on above: Expected: 09/14/2025 (Approximate), Expires: 09/14/2025 Start: 03-25-2025 Influenza vaccination Influenza Vacc ine [facility] Start: 12-11-2024 End: 12-11-2024 Patient encounter procedure 12/11/2024 2:30 PM EDT Routine [facility] [address] [facility] [facility] [place] [phone] Andrzej Hodge, DO [address] [place] [address] [facility] Start: 12-04-2024 End: 12-04-2024 Patient encounter procedure 12/04/2024 1:40 PM EDT Routine [facility] [address] [place] [phone] Andrzej Hodge, DO [address] [place] [address] [facility] Start: 11-21-2024 End: 11-21-2024 Patient encounter procedure 11/21/2024 1:50 PM EDT Routine [facility] [address] [facility] [place] [phone] Amy Dobbins PA [address] [place] [address] [facility] Start: 11-07-2024 End: 11-07-2024 Patient encounter procedure 11/07/2024 11:20 AM EDT Routine [facility] [address] [place] [phone] Andrzej Hodge, DO [address] [place] [address] [facility] Start: 10-24-2024 End: 10-24-2024 Patient encounter procedure [facility] Comment on above: Arrived Start: 10-23-2024 End: 10-23-2024 Patient encounter procedure 10/23/2024 2:15 PM EDT Appointment [facility] - Ultrasound [address] [place] [id number] [facility] Start: 10-09-2024 End: 10-09-2024 Patient encounter procedure 10/09/2024 11:10 AM EDT Routine [facility] [address] [phone] Andrzej Hodge DO [address] [place] [address] [facility] Start: 09-14-2024 End: 09-14-2024 Patient encounter procedure 09/14/2024 11:30 AM EST Office Visit [facility] at [facility] [address] [place] [address] Los Hollins MD [address] [place] [address] Arrived [facility] Comment on above: Arrived Start: 09-12-2024 End: 09-12-2024 Patient encounter procedure 09/12/2024 10:30 AM EST Routine [facility] [address] [place] [phone] Amy Dobbins PA [address] [place] [address] [facility] Start: 09-11-2024 End: 09-11-2025 CBC panel - Blood by Automated count CBC Lab Routine Diabetes mellitus screening Expected: 09/11/2024 (Approximate), Expires: 09/11/2025 [facility] Work Phone: Comment on above: Expected: 09/11/2024 (Approximate), Expires: 09/11/2025 Start: 09-11-2024 End: 09-11-2025 Measurement of glucose 1 hour after glucose challenge for glucose tolerance test Glucose tolerance, 1 hour Lab Routine Diabetes mellitus screening Expected: 09/11/2024 (Approximate), Expires: 09/11/2025 [facility] Comment on above: Expected: 09/11/2024 (Approximate), Expires: 09/11/2025 Start: 09-11-2024 End: 09-11-2024 Patient encounter procedure 09/11/2024 10:20 AM EST Routine [facility] [address] [facility] [place] [phone] Amy Dobbins PA [address] [place] [address] [facility] Start: 09-11-2024 End: 09-11-2024 Professional / ancillary services management 09/11/2024 10:00 AM EST Ancillary Procedure [facility] [address] [place] [phone] [facility] Start: 08-28-2024 End: 08-28-2024 Professional / ancillary services management 08/28/2024 1:00 PM EST Ancillary Procedure [facility] [address] [facility] [place] [phone] [facility] Start: 08-14-2024 End: 10-12-2024 Alpha fetoprotein, maternal Alpha fetoprotein, maternal Lab Routine Screening, , for anatomic survey Expected: 08/14/2024 (Approximate), Expires: 10/12/2024 [facility] Comment on above: Expected: 08/14/2024 (Approximate), Expires: 10/12/2024 Start: 08-14-2024 End: 08-14-2025 US for US OB 14+ weeks anatomy scan Imaging Routine Screening, , for anatomic survey Expected: 08/14/2024, Expires: 08/14/2025 [facility] Work Phone: Comment on above: Expected: 08/14/2024 , Expires: 08/14/2025 Start: 08-14-2024 End: 08-14-2024 Patient encounter procedure [facility] Comment on above: Arrived Start: 08-01-2024 End: 08-01-2024 Professional / ancillary services management 08/01/2024 11:30 AM EST Ancillary Procedure [facility] [address] [place] [address] [facility] Start: 07-16-2024 End: 08-16-2024 [...] procedure 07/09/2024 2:50 PM EST Routine [facility] [address] [phone] Andrzej Hodge, DO [address] [place] [address] [facility] Start: 06-07-2024 End: 06-07-2025 ABO/Rh [...] Initial [facility] [address] [place] [phone] [facility] Start: 06-07-2024 End: 06-07-2024 Professional / ancillary services management 06/07/2024 1:00 PM EST Ancillary Procedure [facility] [address] [place] [address] [facility] Start: 05-21-2024 End: 05-21-2024 Patient encounter procedure 05/21/2024 11:00 AM EDT Office Visit [facility] [address] [place] [phone] Amy Dobbins PA [address] [place] [address] [facility] Start: 03-25-2024 Influenza vaccination Influenza Vacc ine [facility] Start: 09-14-2023 End: 09-14-2023 Patient encounter procedure 09/14/2023 3:50 PM EST Routine [facility] [address] [place] [phone] Amy Dobbins, PA [address] [place], [place] [phone] [facility] Start: 2018 DTaP,Tdap and Td Vaccines (1 - Tdap) DTaP,Tdap and Td Vaccines (1 - Tdap) [facility] Start: 2017 Adult BMI Follow Up Plan Adult BMI Follow Up Plan [facility] Start: 2017 Adult BMI Screening Adult BMI Screen ing [facility] Start: 2011 Depression Screening Depression Scre ening [facility] Start: 2011 Tobacco Screening Tobacco Screening [facility] Bacteria identified in Urine by Culture Urine culture Microbiology Routine Missed menses Ordered: 06/07/2024 [facility] Comment on above: Ordered: 06/07/2024 Bacteria identified in Urine by Culture Urine culture Microbiology Routine BV (bacterial vaginosis) Ordered: 09/11/2024 [facility] Comment on above: Ordered: 09/11/2024 CBC W Auto Differential panel - Blood CBC and differential Lab Routine Missed menses , unspecified gestational age Ordered: 06/07/2024 [facility] Comment on above: Ordered: 06/07/2024 CHLAMYDIA TRACHOMATI S (GENITO/STI) CHLAMYDIA TRACHOMATIS (GENITO/STI) Lab Routine Second trimester Ordered: 07/16/2024 [facility] Comment on above: Ordered: 07/16/2024 Cytology Cervical or vaginal smear or scraping study Pap Smear Pathology and Cytology Routine Well woman exam with routine gynecological exam 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 Second trimester Ordered: 07/16/2024 [facility] Work Phone: Comment on above: Ordered: 07/16/2024 Hemoglobin A1c/Hemoglobin.total in Blood Hemoglobin A1c Lab Routine Missed menses , unspecified gestational age Ordered: 06/07/2024 [facility] Comment on above: Ordered: 06/07/2024 Hepatitis B virus surface Ag [Presence] in Serum or Plasma by Immunoassay Hepatitis B surface antigen Lab Routine Missed menses , unspecified gestational age Ordered: 06/07/2024 [facility] Comment on above: Ordered: 06/07/2024 Hepatitis C virus Ab [Presence] in Serum or Plasma by Immunoassay Hepatitis C antibody Lab Routine Missed menses , unspecified gestational age Ordered: 06/07/2024 [facility] Comment on above: Ordered: 06/07/2024 HIV-1/HIV-2 antigen/antibody combination immunoassay HIV-1 and HIV-2 antibodies Lab Routine Missed menses , unspecified gestational age Ordered: 06/07/2024 [facility] Comment on above: Ordered: 06/07/2024 Neisseria gonorrhoea e DNA [Presence] in Unspecified specimen by MARY ELLEN with probe detection Neisseria gonorrhea DNA probe, direct Lab Routine Second trimester Ordered: 07/16/2024 [facility] Comment on above: Ordered: 07/16/2024 Reagin Ab [Presence] in Serum by RPR RPR Lab Routine Missed menses , unspecified gestational age Ordered: 06/07/2024 [facility] Comment on above: Ordered: 06/07/2024 Rubella antibody, IgG Rubella an tibody, IgG Lab Routine Missed menses , unspecified gestational age Ordered: 06/07/2024 [facility] Comment on above: Ordered: 06/07/2024 SURESWAB(R) ADVANCED VAGINITIS PLUS, TMA SURESWAB(R) ADVANCED VAGINITIS PLUS, TMA Pathology and Cytology Routine Second trimester Ordered: 07/16/2024 [facility] Comment on above: Ordered: 07/16/2024 Payers Date Payer Category Payer [facility] Managed Care - Other ANTH [id number] 2022 Medicaid [id number] 2022 Medicaid [id number] 1999 Unknown [id number] 2.16.840.1.943158.3.579.2. 593 1999 Unknown [id number] 2.16.840.1.252702.3.579.2. 593 1999 Unknown [id number] 2.16.840.1.274457.3.579.2. 593 1999 Unknown [id number] 2.16.840.1.646386.3.579.2. 593 1999 Unknown [id number] 2.16.840.1.134496.3.579.2. 593 1999 Unknown [id number] 2.16.840.1.358202.3.579.2. 593 1999 Unknown [id number] 2.16.840.1.668707.3.579.2. 593 1999 Unknown [id number] 2.16.840.1.173993.3.579.2. 593 1999 Unknown [id number] 2.16.840.1.758610.3.579.2. 593 1999 Unknown [id number] 2.16.840.1.154508.3.579.2. 593 1999 Unknown [id number] 2.16.840.1.114002.3.579.2. 1286 1999 Unknown [id number] 2.16.840.1.464463.3.579.2. 1286 1999 Unknown [id number] 2.16.840.1.176109.3.579.2. 1286 1999 Unknown [id number] 2.16.840.1.401856.3.579.2. 1286 1999 Unknown [id number] 2.16.840.1.850180.3.579.2. 1259 1999 Unknown [id number] 2.16.840.1.119593.3.579.2. 1259 1999 Unknown [id number] 2.16.840.1.014962.3.579.2. 1258 1999 Unknown [id number] 2.16.840.1.026871.3.579.2. 1258 1999 Unknown [id number] 2.16.840.1.717295.3.579.2. 1258 1999 Unknown [id number] 2.16.840.1.851966.3.579.2. 1258 1999 Unknown [id number] 2.16.840.1.032492.3.579.2. 1258 1999 Unknown [id number] 2.16.840.1.142171.3.579.2. 1258 1999 Unknown [id number] 2.16840.1.681630.3.579.2. 1258 1999 Unknown [id number] 2.16.840.1.031083.3.579.2. 1258 1999 Unknown [id number] 2.16.840.1.091227.3.579.2. 1258 1999 Unknown [id number] 2.16.840.1.383779.3.579.2. 1258 1999 Unknown [id number] 2.16.840.1.051049.3.579.2. 1258 1999 Unknown [id number] 2.16840.1.333758.3.579.2. 9 1959 Unknown [id number] 1959 Unknown [id number] Social History Date Type Detail Facility Start: 04-18-2023 End: 09-13-2024 Tobacco smoking status [facility] Never smoked tobacco [facility] Start: 08-31-2023 End: 12-04-2024 Alcohol intake Lifetime non-drinker (finding) [facility] Start: 06-13-2023 End: 05-31-2024 History of Social function [facility] Start: 06-13-2023 End: 05-31-2024 Tobacco use panel [facility] Start: 04-18-2023 Alcohol Comment caffeine: none [facility] Start: 02-17-2023 [facility] Start: 2000 Sex Assigned At Not on file [facility] Start: 09-13-2024 Sex Female (finding) [facility] Within the past 12 months we worried whether our food would run out before we got money to buy more. Never True [facility] Clinical Notes 09-15-2022 to 12-04-2024 Sharon Hare, WARNER - 12/04/2024 1:40 PM EDTHenrique Wang NP - 11/21/2024 1:50 PM Sharlene Hare LPN - 11/07/2024 11:20 AM SHAUNA Rose - 10/24/2024 11:30 AM EDT Note Date & Type Note Facility 12-04-2024 History of Presen t illness Narrative Reason for Appointment: Patient ID: Alexandra Higgins is a 24 y.o. female who presents for Routine Visit Patient presents today for Return OB appointment. MEDICATIONS Current Outpatient Medications Medication Instructions iron polysaccharides (PROFE) 391.3 mg, Oral, Daily magnesium oxide (MAG-OX) 400 mg, Oral, Daily MV-Min-Fe Fum-FA-DHA (CENTRUM SPECIALIST PO) 1 each, Daily ALLERGIES Allergies [...] nursing note reviewed. Exam conducted with a petroleum refining firer present. Vitals: Estimated body mass index is 32.34 kg/m as calculated from the following: Height as of 11/10/22: 5' 3.5 . Weight as of this encounter: 185 lb 8 oz. BP: 116/70 Patient's last menstrual period was 04/04/2024. ASSESSMENT & PLAN ICD-10-CM 1. Third trimester Z34.93 2. 34 weeks gestation of Z3A.34 Return OB: Patient presents today for a routine obstetrics appointment. Patient is currently 34w6d . Patient states she is doing well but has complaints of being tired due to current . Patient has verbalizes frequent movement. labor precautions was discussed/given and patient was instructed to perform kick counts three times a day. No orders of the defined types were placed in this encounter. Follow Up: Patient is to return to office in 1 week for routine OB appointment. Documented by Sharon Hare LPN on behalf of: Andrzej Hodge DO documented in this encounter [facility] 11-21-2024 History of Presen t illness Narrative Reason for Appointment: Patient ID: Alexandra Higgins is a 24 y.o. female who presents for Routine Visit Patient presents today for Return OB appointment. MEDICATIONS Current Outpatient Medications Medication Instructions magnesium oxide (MAG-OX) 400 mg, Oral, Daily MV-Min-Fe Fum-FA-DHA (CENTRUM SPECIALIST PO) 1 each, Daily ALLERGIES Allergies [...] nursing note reviewed. Exam conducted with a petroleum refining firer present. Vitals: Estimated body mass index is 32.13 kg/m as calculated from the following: Height as of 11/10/22: 5' 3.5 . Weight as of this encounter: 184 lb 4 oz. BP: 102/70 Patient's last menstrual period was 04/04/2024. ASSESSMENT & PLAN ICD-10-CM 1. Third trimester Z34.93 2. 33 weeks gestation of Z3A.33 Return OB: Patient presents today for a routine obstetrics appointment. Patient is currently 33w0d . Patient states she is doing well but has complaints of being tired due to current . Patient has verbalizes frequent movement. labor precautions was discussed/given and patient was instructed to perform kick counts three times a day. No orders of the defined types were placed in this encounter. Follow Up: Patient is to return to office in 2 week for routine OB appointment. Documented by Henrique Wagn NP on behalf of: Henrique Wang NP documented in this encounter [facility] 11-07-2024 History of Presen t illness Narrative Reason for Appointment: Patient ID: Alexandra Higgins is a 24 y.o. female who presents for Routine Visit Patient presents today for Return OB appointment. MEDICATIONS Current Outpatient Medications Medication Instructions docusate sodium (COLACE) 100 mg, Oral, 2 times daily PRN magnesium oxide (MAG-OX) 400 mg, Oral, Daily MV-Min-Fe Fum-FA-DHA (CENTRUM SPECIALIST PO) 1 each, Daily ALLERGIES Allergies [...] nursing note reviewed. Exam conducted with a petroleum refining firer present. Vitals: Estimated body mass index is 32.13 kg/m as calculated from the following: Height as of 11/10/22: 5' 3.5 . Weight as of this encounter: 184 lb 4 oz. BP: 116/72 Patient's last menstrual period was 04/04/2024. ASSESSMENT & PLAN ICD-10-CM 1. Third trimester Z34.93 POCT urinalysis dipstick manually resulted 2. 31 weeks gestation of Z3A.31 3. Short cervix affecting O26.879 Return OB: Patient presents today for a routine obstetrics appointment. Patient is currently 31w0d . Patient states she is doing well but has complaints of being tired due to current . Patient has verbalizes frequent movement. labor precautions was discussed/given and patient was instructed to perform kick counts three times a day. Orders Placed This Encounter Procedures POCT urinalysis dipstick manually resulted Follow Up: Patient is to return to office in 2 week for routine OB appointment. Documented by Sharon Hare LPN on behalf of: Andrzej Hodge DO documented in this encounter [facility] 10-24-2024 History of Presen t illness Narrative Reason for Appointment: Patient ID: Alexandra Higgins is a 24 y.o. female who presents for Routine Visit Patient presents today for Return OB appointment. MEDICATIONS Current Outpatient Medications Medication Instructions docusate sodium (COLACE) 100 mg, Oral, 2 times daily PRN magnesium oxide (MAG-OX) 400 mg, Oral, Daily MV-Min-Fe Fum-FA-DHA (CENTRUM SPECIALIST PO) 1 each, Daily ALLERGIES Allergies [...] reviewed. Vitals: Estimated body mass index is 32.34 kg/m as calculated from the following: Height as of 11/10/22: 5' 3.5 . Weight as of this encounter: 185 lb 8 oz. BP: 112/66 Patient's last menstrual period was 04/04/2024. ASSESSMENT & PLAN ICD-10-CM 1. Third trimester Z34.93 2. 29 weeks gestation of Z3A.29 Return OB: Patient presents today for a routine obstetrics appointment. Patient is currently 29w0d . Patient states she is doing well but has complaints of being tired due to current . Patient has verbalizes frequent movement. labor precautions was discussed/given and patient was instructed to perform kick counts three times a day. Patient doing well, to remain off work for duration of No orders of the defined types were placed in this encounter. Follow Up: Patient is to return to office in 2 week for routine OB appointment. Documented by SHAUNA Rizvi on behalf of: SHAUNA Rizvi documented in this encounter [facility] 10-24-2024 Miscellaneous Notes Formattin g of this note might be different from the original. I called pt and left a message about scheduling an apt in 4 weeks, I asked her to call me back documented in this encounter [facility] 10-24-2024 Telephone encount er Note I called pt and left a message about scheduling an apt in 4 weeks, I asked her to call me back [facility] 10-09-2024 History of Presen t illness Narrative Reason for Appointment: Patient ID: Alexandra Higgins is a 24 y.o. female who presents for Routine Visit Patient presents today for Return OB appointment. MEDICATIONS Current Outpatient Medications Medication Instructions docusate sodium (COLACE) 100 mg, Oral, 2 times daily PRN magnesium oxide (MAG-OX) 400 mg, Oral, Daily MV-Min-Fe Fum-FA-DHA (CENTRUM SPECIALIST PO) 1 each, Daily ALLERGIES Allergies [...] nursing note reviewed. Exam conducted with a petroleum refining firer present. Vitals: Estimated body mass index is [...] was discussed/given. Pt having cervical length with [facility] in [place] coming up. Pt states its getting harder at work. No orders of the defined types were placed in this encounter. Follow Up: Patient is to return to office in 2 week for routine OB appointment. Documented by Sharon Hare LPN on behalf of: Andrzej Hodge DO documented in this encounter [facility] 09-14-2024 History of Presen t illness Narrative Headache/epigastric pain/blurry vision/swelling? No Cramping/contractions? No Abnormal vaginal discharge? No Spotting/vaginal bleeding? No Loss or gush of fluid like your water may have broken? No Do you have cats at home? No Do you change the litter box (reason: risk of toxoplasmosis)? N/A Genetic testing done this here or other office? Yes Have you been seen here at [facility] in a previous ? No Recent ER visits or hospitalizations? ER visit within the last month, was vomiting blood (was old it was just irritation from vomiting so much) Bring blood sugar log or meter with you today? (Please bring them with you for every visit at [facility]) N/A Flu vaccine (May-September)? 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 Patient does have ultrasound scheduled with us. [facility] . If there any questions please do not hesitate to contact us. Sincerely, LOS HOLLINS MD documented in this encounter [facility] [employer] 09-11-2024 History of Presen t illness Narrative Reason [...] 2.0 cm. We will refer patient to [facility] for further evaluation. Pt also complains of odor with discharge with progesterone, we will send in flagyl Documented by SHAUNA Rizvi on behalf of: SHAUNA Rizvi documented in this encounter [facility] 08-14-2024 History of Presen t illness Narrative Reason for Appointment: Patient ID: Alexandra Lafleurse is a 24 y.o. female who presents [...] nursing note reviewed. Exam conducted with a petroleum refining firer present. Vitals: Estimated body mass index is [...] Andrzej Hodge DO documented in this encounter [facility] 07-16-2024 History of Presen t illness Narrative Reason for Appointment: Patient ID: Mikiawjavier Higgins is a 24 y.o. female who [...] nursing note reviewed. Exam conducted with a petroleum refining firer present. Vitals: Estimated body mass index is [...] of: SHAUNA Rizvi documented in this encounter [facility] 06-07-2024 History of Presen t illness [...] or undercooked meat, and stay away from [facility]. Patient has also been advised [...] Brianna Perry LPN documented in this encounter [facility] 05-31-2024 History of Presen t illness [...] of: SHAUNA Rizvi documented in this encounter [facility] 03-06-2024 History of Presen t illness Narrative Pt presents today for a pre-employment drug screen, BAT, Physical Exam, Audiogram, and PFT for [place]. Pt verified by photo ID. documented in this encounter [facility] 08-31-2023 History of Presen t illness [...] nursing note reviewed. Exam conducted with a petroleum refining firer present. Vitals: Estimated body mass index is [...] Andrzej Hodge DO documented in this encounter [facility] 09-15-2022 Note EXAMINATION: US PREG TV [...] authenticated by: ASHLEY NOEL Date: 2022-09-15 07:41 [facility] 09-15-2022 Note OPERATIVE NOTE OPERATION DATE: 09/15/2022 PROCEDURE: Suction D AND C. PREOPERATIVE DIAGNOSIS: First trimester missed at 10 weeks. POSTOPERATIVE DIAGNOSIS: First trimester missed at 10 weeks. ANESTHESIA: General. SURGEON: Andrzej Ayesha, D.O. PYROMETER OPERATOR: None. FINDINGS: Products of conception. SPECIMEN: [...] Recovery Room in stable condition. ?? [facility] Evaluation note Diagnosis Third trimester state, [...] or unspecified fetus documented in this encounter [facility]* Diagnosis Short cervix affecting with delivery- Primary Cervical shortening, delivered, with or without mention of antepartum condition [facility] Diagnosis Second trimester state, incidental 26 weeks gestation of [facility] Diagnosis Third trimester state, incidental 29 weeks gestation of [facility] Diagnosis Third trimester state, incidental 31 weeks gestation of Short cervix affecting Cervical shortening, unspecified as to episode of care or not applicable [facility] Diagnosis Third trimester state, incidental 33 weeks gestation of [facility]* Diagnosis Third trimester state, incidental 34 weeks gestation of documented in this encounter [facility]InstructionsNot on filedocumented in this encounterProMedica Health SystemInstructionsNot on filedocumented in this encounterProNol[facility] SystemInstructionsNot on filedocumented in this encounterProMedict Health SystemInstructionsNot on filedocumented in this encounterACMC Healthcare [facility] System Summary Purpose Family History No Family [...] section and content) DATE CREATED AUTHOR 10/12/2022 [facility] DATE CREATED AUTHOR AUTHOR'S ORGANIZ ATION 12/08/2022 [facility] DATE CREATED AUTHOR AUTHOR'S ORGANIZ ATION 09/16/2024 [facility] DATE CREATED AUTHOR AUTHOR'S ORGANIZ ATION 10/26/2024 [facility] DATE CREATED AUTHOR AUTHOR'S ORGANIZ ATION 11/27/2024 [facility] DATE CREATED AUTHOR AUTHOR'S ORGANIZ ATION 12/05/2024 [facility] EPIC Reason for Visit [...] BE BASED ON THE PRIMARY CLINICAL RECORDS. [employer] provides no warranty or guarantee of the accuracy or completeness of information in this document.
[2024-12-09 09:24] VITALS: BP 119/70; PULSE 108
== END 2024-12-09 10:22 | disposition home or self-care (01) ==
LOC: FBC 09:17
PROVIDERS: Admitting Provider Family Medicine Addiction Medicine; Visit Provider Family Medicine Addiction Medicine
DX: O36.8190 Decreased fetal movements, unspecified trimester, not applicable or unspecified (principal); Z3A.00 Weeks of gestation of pregnancy not specified
CPT/HCPCS: 59025; G0378; G0379

== ENCOUNTER 2024-12-11 19:23 | Observation (INO) | payer MEDICAID, SELFPAY ==
--- OUTSIDE RECORDS SUMMARY | 2024-12-11 19:28 | XMS_ITS | CCD ---
Author Organization [facility] Care Team Providers Care Fisher Pot Name Role Phone ALEXIA BARRETT Attending Unavailable [...] adverse reactions to drug 5 Eye Swelling [facility] (16 sources) Pollen Propensity to adverse reactions 5 [...] polysaccharide iron complex 391 mg oral capsule (6 sources) Start: 11-22-2024 End: 12-22-2024 take 1 [...] capsule 11 08/16/2023 08/31/2023 Discontinued (Side effects) [id number] AC-D GRANDA ORAL (4 sources) 105-IRO N-FOLIC [...] Drug Class(es) Dates Sig (Normalized) Sig (Original) [id number] 200 actuat albuterol 0.09 mg/actuat metered dose inhaler (7 sources) beta2-Adrenergic Agonist End: 06-07-2024 albuterol HFA (Ventolin HFA) 90 mcg/act inhaler every 4 (four) hours. 06/07/2024 Discontinued 27-1 MG tablet (1 source) Start: 09-21-2022 End: 08-31-2023 27-1 MG tablet 1 (one) time each day at the same time. 0 09/21/2022 08/31/2023 Discontinued (Therapy completed) KE-Utg-UI-Herlong-3 ( Gummies/DHA & FA) 0.4-32.5 MG chewable tablet (1 source) Start: 03-03-2023 End: 08-31-2023 XZ-Ovh-YD-Herlong-3 ( Gummies/DHA & FA) 0.4-32.5 MG chewable [...] Test Name Value Interpretation Reference Range Facility [facility] UA (CLEAN/CATCH) BALLOON TESTER/KEARA RO IF IND.on 11-26-2024 BILIRUBIN URINE Negative NEGATIVE [facility] thcare BLOOD URINE Negative NEGATIVE [facility] Clarity (U) SL CLOUDY CLEAR [facility] Color (U) LT. YELLOW YELLOW [facility] Health[facility] e GLUCOSE URINE UA Negative NEGATIVE mg/dL [facility] Interpretation and review of laboratory results Abnormal [facility] Healthcare Ketones Ql (U) Negative NEGATIVE mg/dL [facility] ealthcare Leukocyte esterase Test strip Ql (U) SMALL Abnormal NEGATIVE [facility] NITRITE URINE Negative NEGATIVE [facility] Health care pH (U) 8.0 [pH] 5.0 - 9.0 [facility] PROTEIN URINE Negative NEG/TRACE mg/dL [facility] SPECIFIC GRAVITY URINE 1.015 1.005 - 1.025 [facility] URINE MICROSCOPIC INDICATED YES [facility] UROBILINOGEN URINE 0.2 EU/dL 0.2 - 1.0 EU/dL [facility] Urinalysis macro (dipstick) panel (U)on 11-07-2024 Bilirubin, UA Negative Negative - 4(70) +++ mg/dL [facility] Blood, UA Negative Negative - 50 William/mcL [facility] Clarity, UA Clear [facility] re Color, UA Yellow [facility] Glucose, UA Negative Negative [...] System pH, UA 6.5 5 - 9 [facility] Protein, UA Negative Negative - 1999(20) ++++ mg/dL [facility] Spec Grav, UA 1.015 1 - 1.03 [facility] Urobilinogen, UA 0.2 0.2 - 12 mg/dL [facility] TBH UA (CLEAN/CATCH) BALLOON TESTER/KEARA RO IF IND.on 10-15-2024 BILIRUBIN URINE Negative NEGATIVE [facility] BLOOD URINE Negative NEGATIVE [facility] Clarity (U) CLEAR CLEAR [facility] Color (U) LT. YELLOW YELLOW [facility] GLUCOSE URINE UA Negative NEGATIVE mg/dL [facility] Interpretation and review of laboratory results Abnormal [facility] Ketones Ql (U) Negative NEGATIVE mg/dL [facility] H ealthcare Leukocyte esterase Test strip Ql (U) TRACE Abnormal NEGATIVE [facility] NITRITE URINE Negative NEGATIVE [facility] care pH (U) 8.5 [pH] 5.0 - 9.0 [facility] PROTEIN URINE Negative NEG/TRACE mg/dL [facility] SPECIFIC GRAVITY URINE 1.015 1.005 - 1.025 [facility] URINE MICROSCOPIC INDICATED YES [facility] UROBILINOGEN URINE 0.2 EU/dL 0.2 - 1.0 EU/dL [facility] e US OB LIMITED 1+ FETUSESon [...] [facility] Clarity, UA Clear [facility] re Color, UA Yellow [facility] [...] System pH, UA 6.5 5 - 9 [facility] Protein, UA Negative Negative - 1999(20) ++++ mg/dL [facility] Spec Grav, UA 1.025 1 - 1.03 [facility] Urobilinogen, UA 0.2 0.2 - 12 mg/dL [facility] AFP, SERUM, OPEN SPINA BIFID Aon 09-01-2024 AFP MOM 1.38 . [facility] AFP VALUE 86.3 ng/mL . [facility] e COMMENT: Comment . [facility] Health[facility] Comment on above: Kristi Han , Ph.D., [facility] Director References: Available Upon Request. Multiples Of Median Cutoffs For AFP Elevations [place]ona 2.5 Black 2.8 IDD 2.0 Twins 4.5 Abbreviation Definitions IDD - Insulin Dep Diabetes OSBR - Open Spina Bifida Risk For further inquiries contact [employer] at [phone]. This test was developed and its performance characteristics determined by [employer]. It has not been cleared or approved by the Food and Drug Administration. Performed at: [facility] [address] [place], [place] [id number] Coffee Shop Attendant: Marisel Lewis [facility], Phone: [phone] GEST. AGE ON COLLECTION DATE 21.1 . weeks [facility] GESTAT. AGE BASED ON LMP . [facility] Comment on above: Recalculations are n ot recommended when gestational dating by LMP and ultrasound are within 10 days. INSULIN DEP DIABETES No . [facility] INTERPRETATION Comment . [facility] Healt hcare Comment on above: Interpretation: [...] Customer Services to discuss available options. The [employer] recommends amniocentesis be offered to women age 35 and older. MATER[age] [facility] Healthcare MULTIPLE GESTATION No . [facility] OSBR RISK 1 IN 7620 . [facility] Healt hcare RACE Black . [facility] Health[facility] e RESULTS Report . [facility] TEST RESULTS: Negative . [facility] Health care WEIGHT 183 . lbs [facility] Healthcar e N N LMP [id number] [phone] N 1 183 N N N N N Black/ [facility] US OB 14+ WEEKS ANATOMY SCAN [...] [facility] Clarity, UA Clear [facility] re Color, UA Yellow [facility] Gl[facility] e Glucose, UA Negative Negative - 1999(110) ++++ mg/dL [facility] Interpretation and review of laboratory results Normal [facility] Ketones, UA Negative Negative - 160(16) ++++ mg/dL [facility] Leukocytes, UA Negative Negative - 500+++ Roma/mcL [facility] Nitrite, UA Negative Negative - Positive [facility] pH, UA 7 5 - 9 [facility] e Protein, UA Negative Negative - 1999(20) ++++ mg/dL [facility] Spec Grav, UA 1.02 1 - 1.03 [facility] Urobilinogen, UA 0.2 0.2 - 12 mg/dL [facility] US OB TRANSVAGINALon 025 [...] GDLNon AGE GDLN ACOG TESTING Note . [facility] Comment on above: TESTS RESULT FLAG UN ITS REF RANGE LAB Clinician Provided Cytology Information Source.............Cervix No. of containers..01 ThinPrep Vial Age Algo ACOG Kassidy... FLAG LEGEND: L-Low Normal,H-High Normal,LL-Alert Low,HH-Alert High <-Panic Low,>-Panic High,A-Abnormal,AA-Critical Abnormal Performed at: 01 =G [address] [address] Cortney Arciniega MD, IGP, RFX APTIMA HPV ASCU Note . [facility] Comment on above: TESTS RESULT FLAG UN ITS REF RANGE LAB DIAGNOSIS: 02 NEGATIVE FOR INTRAEPITHELIAL LESION OR MALIGNANCY. Specimen adequacy: 02 Satisfactory for evaluation. No endocervical component is identified. Performed by: 02 Bry Segundo, Lacing Operator ([facility]) . 02 Note: Note 02 The [...] <-Panic Low,>-Panic High,A-Abnormal,AA-Critical Abnormal Performed at: [address] [address] Cortney Arciniega MD, Performed at: = - [facility] [id number] Coffee Shop Attendant: Cortney Arciniega MD, Phone: [phone] Performed at: [facility] [address] [id number] Coffee Shop Attendant: Corntey Arciniega MD, Phone: [phone] SPATULA-ALONE CERVIX [facility] Health[facility] e Urinalysis macro (dipstick) panel (U)on 07-16-2024 Bilirubin, UA Negative Negative - 4(70) +++ mg/dL [facility] Blood, UA Negative Negative - 50 William/mcL [facility] [employer] Clarity, UA Clear [facility] Color, UA Yellow [facility] Glucose, UA Negative Negative - 2000(110) ++++ mg/dL [facility] Interpretation and review of laboratory results Normal [facility] Ketones, UA Negative Negative - 160(16) ++++ mg/dL [facility] Leukocytes, UA Negative Negative - 500+++ Roma/mcL [facility] Nitrite, UA Negative Negative - Positive [facility] pH, UA 8.5 5 - 9 [facility] Health[facility] e Protein, UA Negative Negative - 1999(20) ++++ mg/dL [facility] Spec Grav, UA 1.02 1 - 1.03 [facility] Urobilinogen, UA 0.2 0.2 - 12 mg/dL [facility] BOX TESTon 06-14-2024 BOX TEST SENT OUT [facility] althcare BOX1 [facility] Health[facility] e BOX2 06/14/[address] [facility] UNITY BOX [facility] No Panel Informationon 06-14 [facility] Health[facility] e Rubella IGG immune statuson 06-14-2024 Rubella immune IgG IMMUNE [facility] HCG ( test) Ql (U)o n 06-07-2024 Interpretation and review of laboratory results Abnormal [facility] Preg Test, Ur Positive Negative [facility] Urinalysis macro (dipstick) panel (U)on 06-07-2024 Bilirubin, UA Negative Negative - 4(70) +++ mg/dL [facility] Blood, UA Negative Negative - 50 William/mcL [facility] Clarity, UA Clear [facility] re Color, UA Yellow [facility] e Glucose, UA Negative Negative - [...] System pH, UA 7.5 5 - 9 [facility] Health[facility] e Protein, UA Negative Negative - 1999(20) ++++ mg/dL [facility] Spec Grav, UA 1.02 1 - 1.03 [facility] Urobilinogen, UA 0.2 0.2 - 12 mg/dL [facility] Urinalysis macro (dipstick) panel (U)Ordered By: Shantel Rangel on 08-31-2023 Bilirubin, UA Negative Negative - 4(70) +++ mg/dL [facility] Blood, UA Negative Negative - 50 William/mcL [facility] Clarity, UA Clear [facility] Healthnv re Color, UA Yellow [facility] [...] System pH, UA 7.5 5 - 9 [facility] e Protein, UA Trace Negative - 1999(20) ++++ mg/dL [facility] Spec Grav, UA 1.020 1 - 1.03 [facility] Urobilinogen, UA 0.2 0.2 - 12 mg/dL [facility] PAP ACOG PANEL 2: 21 to 29on 11-17-2022 . . Normal [facility] Comment on above: Performed By: #### 4 [id number] #### [facility] [address] [place] [address] Dr. Aleah Peres Age Gdln ACOG Testing - [facility] Comment on above: Performed By: #### 4 [id number] #### [facility] [address] [address] [address] Aleah Peres DIAGNOSIS: Comment [facility] Comment on above: Result Comment: NEGA TIVE FOR INTRAEPITHELIAL LESION OR MALIGNANCY. Performed By: #### 4 [id number] #### [facility] [address] [address] [address] Aleah Peres Methodology: Comment [facility] Comment on above: Result Comment: This liquid based ThinPrep(R) pap test was screened with the use of an image guided system. Performed By: #### 4 [id number] #### [facility] [address] [place] [address] Dr. Aleah Peres Note: Comment [facility] Comment on above: Result Comment: The Pap smear is a screening test designed to aid in the detection of premalignant and malignant conditions of the uterine cervix. It is not a diagnostic procedure and should not be used as the sole means of detecting cervical cancer. Both false-positive and false-negative reports do occur. . Performed By: #### 4 [id number] #### [facility] [address] [place] [address] Dr. Aleah Peres Performed by: Comment Normal [facility] Comment on above: Result Comment: Annelise Martinez Lacing Operator Performed By: #### 4 [id number] #### [facility] [address] [place] [address] Dr. Aleah Peres Reflex Criteria: Comment Normal [facility] Comment on above: Result Comment: The HPV DNA reflex criteria were not met with this specimen result therefore, no HPV testing was performed. . Performed By: #### 4 [id number] #### [facility] [address] [place] [address] Dr. Aleah Peres Specimen adequacy: Comment Normal [facility] Comment on above: Result Comment: Sati sfactory for evaluation. Endocervical and/or squamous metaplastic cells (endocervical component) are present. Performed By: #### 4 [id number] #### [facility] [address] [place] [address] Dr. Aleah Peres Cytology Cervical or vaginal smear or scraping studyon 11-10-2022 [facility] OCC BLD IMMUNO SCREENon 04-0 OCCULT BLOOD Negative Normal NEGATIVE [facility] Comment on above: Performed By: #### O BSCRN #### [facility] [address] [place] [address] Dr. Aleah Peres SURGICAL PATH REPORTon 10-11 SURGICAL PATH REPORT [facility] Department of Pathology [address] [place] [address] [phone] Name: CAMERON HIGGINS : 2000 [facility] [id number] Number: Gender [facility] : n: Admit 22 years Attending ALEXIA BARRETT Age: Provider: Ordering ALEXIA BARRETT Provider: Consulti Surgical Pathology Report ng: ACCESSION: COLLECTED DATE/TIME: RECEIVED DATE/TIME: PATHOLOGIST: [id number] 10/08/2022 12:03 EDT 10/08/2022 12:03 EDT TOM AGUERO MD Final Diagnosis Report for [employer] [place] RETAINED PRODUCTS OF CONCEPTION: - CHORIONIC [...] ald 10/08/2022 Tissue pathology report for: [facility], [address] [place] [address]; ____ Print 10/11/2022 15:01 EDT Number: Date/Time: [facility] Department of Pathology [address] [place] [id number] Name: CAMERON HIGGINS : 2000 [facility] [id number] Number: Gender Female Peter [facility] : n: Admit 22 years Attending ALEXIA BARRETT Age: Provider: ALEXIA Yuan Provider: Consulti Surgical Pathology Report ng: ACCESSION: COLLECTED DATE/TIME: RECEIVED DATE/TIME: PATHOLOGIST: [id number] 10/08/2022 12:03 EDT 10/08/2022 12:03 EDT TOM AGUERO MD Gross Description PATHOLOGY SERVICES PROVIDED BY [employer] (CLIA #[id number]) in cooperation with [facility] at [address] [place] [address] ( CLIA #[id number]) Codes CPT CODE: 95180 ____ Print 10/11/2022 15:01 EDT Number: Date/Time: Normal [facility] Comment on above: Performed By: #### [id number] #### [facility] [address] [place] [address] Design Checker: Tom Aguero MD URon 10-08-2022 , QUAL Negative Normal NEGATIVE [facility] Comment on above: Performed By: #### P REGU #### [facility] [address] [place] [address] Dr. Aleah Peres US PELVIS AND TRANSVAGon [...] PIPPA ORTEGA Date: 2022-10-06 14:55 Normal [facility] SURGICAL PATH REPORTon 09-16 SURGICAL PATH REPORT [facility] Department of Pathology [address] [place] [phone] Name: ALEXANDRA HIGGINS : 2000 [facility] [id number] Number: Gender Female [facility] : n: Admit 22 years Attending ANDRZEJ HODGE Age: Provider: Ordering ANDRZEJ HODGE Provider: Consulti Surgical Pathology Report ng: ACCESSION: COLLECTED DATE/TIME: RECEIVED DATE/TIME: PATHOLOGIST: [id number] 09/15/2022 12:34 EST 09/15/2022 12:34 EST LILLIE KHAN, LUIS ERAZO Final Diagnosis Report for [employer] [facility] [place] PRODUCTS OF CONCEPTION, DILATION AND CURETTAGE: - CHORIONIC VILLI ARE PRESENT; NO SIGNIFICANT ATYPIA IS OBSERVED. - BENIGN MATERIAL DECIDUA PRESENT. - NO PARTS ARE IDENTIFIED. LUIS MOREIRA PATHOLOGIST (Electronic Signature) Date Verified 09/16/2022 LN Clinical Data PRE-OP DIAGNOSIS: Not specified POST-OP DIAGNOSIS: Missed PROCEDURES: D and C with suction SPECIMEN: Products of conception / group care worker Gross Description Labeled products of conception. Received in formalin in a suction sock are multiple irregular segments of medrano pink to red black soft tissue. The individual segments have a variable granular to partially smooth glistening membranous character. The specimen in total aggregate measures 12.5 x 7.5 x 4.0 cm. There are no grossly identifiable parts. Pipe Chipper sections are submitted in three cassettes. MP/ald 09/15/2022 ____ Print 09/16/2022 14:53 EST Number: Date/Time: [facility] Department of Pathology [address] [place], [place] [address] Name: ALEXANDRA HIGGINS : 2000 [employer] [id number] Number: Gender Female [facility] : n: Admit 22 years Attending ANDRZEJ HODGE Age: Provider: Ordering ANDRZEJ HODGE Provider: Consulti Surgical Pathology Report ng: ACCESSION: COLLECTED DATE/TIME: RECEIVED DATE/TIME: PATHOLOGIST: [id number] 09/15/2022 12:34 EST 09/15/2022 12:34 EST LILLIE KHAN, LUIS ERAZO Gross Description Tissue pathology report for: [facility], [address] [place] [address]; PATHOLOGY SERVICES PROVIDED BY [employer] , [employer] (CLIA #[id number]) in cooperation with [facility] at [address] [place] [address] ( CLIA #[id number]) Codes CPT CODE: 61395 ____ Print 09/16/2022 14:53 EST Number: Date/Time: Normal [facility] Comment on above: Performed By: #### [id number] #### [facility] [address] [place], [place] [id number] Design Checker: Tom Aguero MD CBC AUTO DIFFon 09-15-2022 BASO # 0.0 103/ul Normal 0.0-0.1 [facility] Comment on above: Performed By: #### C BC #### [facility] [address] [place] [address] Dr. Aleah Peres Basophils/100 WBC (Bld) 0.4 % Normal 0.2-2.0 [facility] Comment on above: Performed By: #### C BC #### [facility] [address] [place] [address] Dr. Aleah Peres EO # 0.1 103/ul Normal 0.0-0.7 [facility] Comment on above: Performed By: #### C BC #### [facility] [address] [place] [address] Dr. Aleah Peres Eosinophils/100 WBC (Bld) 1.3 % Normal 0.9-7.0 [facility] Comment on above: Performed By: #### C BC #### [facility] [address] [place] [address] Dr. Aleah Peres Erythrocyte distribution width (RBC) [Ratio] 13.8 % Normal 11.0-15.0 [facility] Comment on above: Performed By: #### C BC #### [facility] [address] [place] [address] Dr. Aleah Peres Hematocrit (Bld) [Volume fraction] 35.5 % Critically low 36.0-48.0 [facility] Comment on above: Performed By: #### C BC #### [facility] [address] [place] [address] Dr. Aleah Peres Hemoglobin (Bld) [Mass/Vol] 11.6 g/dL Critically low 12.0-16.0 [facility] Comment on above: Performed By: #### C BC #### [facility] [address] [place] [address] Dr. Aleah Peres IG # 0.03 10e3/ul Normal 0.00-0.03 [facility] Comment on above: Performed By: #### C BC #### [facility] [address] [place] [address] Dr. Aleah Peres IG % 0.4 % Normal 0.0-0.5 [facility] Comment on above: Performed By: #### C BC #### [facility] [address] [place] [address] Dr. Aleah Peres LYMPH # 2.8 103/ul Normal 1.2-3.8 [facility] Comment on above: Performed By: #### C BC #### [facility] [address] [place] [address] Dr. Aleah Peres Lymphocytes/100 WBC (Bld) 32.9 % Normal 20.5-60.0 [facility] Comment on above: Performed By: #### C BC #### [facility] [address] [place] [address] Dr. Aleah Peres MANUAL DIFF REQ NO Normal [facility] Comment on above: Performed By: #### C BC #### [facility] [address] [place] [address] Dr. Aleah Peres MCH (RBC) [Entitic mass] 26.9 pg Normal 26.7-34.0 [facility] Comment on above: Performed By: #### C BC #### [facility] [address] [place] [address] Dr. Aleah Peres MCHC (RBC) [Mass/Vol] 32.7 g/dL Normal 29.9-35.2 [facility] Comment on above: Performed By: #### C BC #### [facility] [address] [place] [address] Dr. Aleah Peres MCV (RBC) [Entitic vol] 82.4 fL Normal 81.0-99.0 [facility] Comment on above: Performed By: #### C BC #### [facility] [address] [place] [address] Dr. Aleah Peres MONO # 0.7 103/ul Normal 0.3-0.8 [facility] Comment on above: Performed By: #### C BC #### [facility] [address] [place] [address] Dr. Aleah Peres Monocytes/100 WBC (Bld) 8.6 % Normal 1.7-12.0 [facility] Comment on above: Performed By: #### C BC #### [facility] [address] [place] [address] Dr. Aleah Peres NEUT # 4.8 103/ul Normal 1.4-6.5 [facility] Comment on above: Performed By: #### C BC #### [facility] [address] [place] [address] Dr. Aleah Peres Neutrophils/100 WBC (Bld) 56.4 % Normal 43.0-75.0 [facility] Comment on above: Performed By: #### C BC #### [facility] [address] [place] [address] Dr. Aleah Peres Platelet mean volume (Bld) [Entitic vol] 9.9 fL Normal 9.5-13.5 [facility] Comment on above: Performed By: #### C BC #### [facility] [address] [place] [address] Dr. Aleah Peres PLT 316 103/ul Normal 150-450 [facility] Comment on above: Performed By: #### C BC #### [facility] [address] [place] [address] Dr. Aleah Peres RBC 4.31 106/ul Normal 4.20-5.40 [facility] Comment on above: Performed By: #### C BC #### [facility] [address] [place] [address] Dr. Aleah Peres WBC 8.4 103/ul Normal 4.0-11.0 [facility] Comment on above: Performed By: #### C BC #### [facility] [address] [place] [address] Dr. Aleah Peres PREG QUANT HCGon 09-15-2022 HCG QUANT 32317 mIU/mL Normal [facility] Comment on above: Performed By: #### P REGQNT #### [facility] [address] [place] [address] Dr. Aleah Peres HCG RANGE SEE BELOW Normal [facility] Comment on above: Result Comment: 5-50 0.2-1 WEEK 50-500 1-2 WEEKS 100-5,000 2-3 WEEKS 500-10,000 3-4 WEEKS 1,000-50,000 4-5 WEEKS 10,000-100,000 5-6 WEEKS 15,000-200,000 6-8 WEEKS 10,000-100,000 2-3 MONTHS Performed By: #### P REGQNT #### [facility] [address] [place], [place] [address] Dr. Aleah Peres TYPE AND SCREENon 09-15-2022 TYPE AND SCREEN Negative Normal [facility] Comment on above: Performed By: #### P REGQNT #### [facility] [address] [place], [place] [address] Dr. Aleah Peres US PELVISon 09-15-2022 US PELVIS EXAMINATION: US PELVIS HISTORY: Spontaneous COMPARISON: No relevant comparison available. TECHNIQUE: Transabdominal and transvaginal sonographic examination. FINDINGS: UTERUS: Small amount of fluid within endometrial cavity. No visible retained products of conception. IMPRESSION: 1. No appreciable retained products of conception within uterine cavity. Electronically authenticated by: ASHLEY NOEL Date: 2022-09-15 15:42 Normal [facility] US PREG TVon 09-13-2022 US PREG [...] Right ovary was not identified. Normal [facility] CBC AUTO DIFFon 08-16-2022 BASO # 0.0 103/ul Normal 0.0-0.1 [facility] Comment on above: Performed By: #### C BC #### [facility] [address] [place] [id number] Dr. Aleah Peres Basophils/100 WBC (Bld) 0.4 % Normal 0.2-2.0 [facility] Comment on above: Performed By: #### C BC #### [facility] [address] [place] [address] Dr. Aleah Peres EO # 0.1 103/ul Normal 0.0-0.7 [facility] Comment on above: Performed By: #### C BC #### [facility] [address] [place] [address] Dr. Aleah Peres Eosinophils/100 WBC (Bld) 1.4 % Normal 0.9-7.0 [facility] Comment on above: Performed By: #### C BC #### [facility] [address] [place] [address] Dr. Aleah Peres Erythrocyte distribution width (RBC) [Ratio] 13.6 % Normal 11.0-15.0 [facility] Comment on above: Performed By: #### C BC #### [facility] [address] [place] [address] Dr. Aleah Peres Hematocrit (Bld) [Volume fraction] 32.4 % Critically low 36.0-48.0 [facility] Comment on above: Performed By: #### C BC #### [facility] [address] [place] [address] Dr. Aleah Peres Hemoglobin (Bld) [Mass/Vol] 11.2 g/dL Critically low 12.0-16.0 [facility] Comment on above: Performed By: #### C BC #### [facility] [address] [place] [address] Dr. Aleah Peres IG # 0.02 10e3/ul Normal 0.00-0.03 [facility] Comment on above: Performed By: #### C BC #### [facility] [address] [place] [address] Dr. Aleah Peres IG % 0.3 % Normal 0.0-0.5 [facility] Comment on above: Performed By: #### C BC #### [facility] [address] [address] [address] Aleah Peres LYMPH # 2.4 103/ul Normal 1.2-3.8 [facility] Comment on above: Performed By: #### C BC #### [facility] [address] [address] [address] Aleah Peres Lymphocytes/100 WBC (Bld) 32.3 % Normal 20.5-60.0 [facility] Comment on above: Performed By: #### C BC #### [facility] [address] [place] [address] Dr. Aleah Peres MANUAL DIFF REQ NO Normal [facility] Comment on above: Performed By: #### C BC #### [facility] [address] [place] [address] Dr. Aleah Peres MCH (RBC) [Entitic mass] 26.9 pg Normal 26.7-34.0 [facility] Comment on above: Performed By: #### C BC #### [facility] [address] [place] [address] Dr. Aleah Peres MCHC (RBC) [Mass/Vol] 34.6 g/dL Normal 29.9-35.2 [facility] Comment on above: Performed By: #### C BC #### [facility] [address] [place] [address] Dr. Aleah Peres MCV (RBC) [Entitic vol] 77.9 fL Critically low 81.0-99.0 [facility] Comment on above: Performed By: #### C BC #### [facility] [address] [place] [address] Dr. Aleah Peres MONO # 0.7 103/ul Normal 0.3-0.8 [facility] Comment on above: Performed By: #### C BC #### [facility] [address] [place] [address] Dr. Aleah Peres Monocytes/100 WBC (Bld) 9.1 % Normal 1.7-12.0 [facility] Comment on above: Performed By: #### C BC #### [facility] [address] [address] [address] Aleah Peres NEUT # 4.1 103/ul Normal 1.4-6.5 [facility] Comment on above: Performed By: #### C BC #### [facility] [address] [address] [address] Aleah Peres Neutrophils/100 WBC (Bld) 56.5 % Normal 43.0-75.0 [facility] Comment on above: Performed By: #### C BC #### [facility] [address] [address] [address] Aleah Peres Platelet mean volume (Bld) [Entitic vol] 9.4 fL Critically low 9.5-13.5 [facility] Comment on above: Performed By: #### C BC #### [facility] [address] [place] [address] Dr. Aleah Peres PLT 303 103/ul Normal 150-450 [facility] Comment on above: Performed By: #### C BC #### [facility] [address] [place] [address] Dr. Aleah Peres RBC 4.16 106/ul Critically low 4.20-5.40 [facility] Comment on above: Performed By: #### C BC #### [facility] [address] [place] [address] Dr. Aleah Peres WBC 7.3 103/ul Normal 4.0-11.0 [facility] Comment on above: Performed By: #### C BC #### [facility] [address] [place] [address] Dr. Aleah Peres ER URINE PROFILEon 3 Bilirubin Ql (U) Negative Normal NEGATIVE [facility] Comment on above: Performed By: #### E RUR #### [facility] [address] [place] [address] Dr. Aleah Peres Clarity (U) CLEAR Normal CLEAR [facility] Comment on above: Performed By: #### E RUR #### [facility] [address] [place], [place] [id number] Dr. Aleah Peres Color (U) YELLOW Normal YELLOW [facility] Comment on above: Performed By: #### E RUR #### [facility] [address] [place] [address] Dr. Aleah OMALLEY A micrscopic examination will be performed if indicated. Normal [facility] Comment on above: Performed By: #### E RUR #### [facility] [address] [place] [address] Dr. Aleah Peres Glucose Ql (U) Negative Normal NEGATIVE [facility] Comment on above: Performed By: #### E RUR #### [facility] [address] [place] [address] Dr. Aleah Peres Hemoglobin Ql (U) Negative Normal NEGATIVE [facility] Comment on above: Performed By: #### E RUR #### [facility] [address] [place] [address] Dr. Aleah Peres Ketones Ql (U) Negative Normal NEGATIVE [facility] Comment on above: Performed By: #### E RUR #### [facility] [address] [place] [address] Dr. Aleah Peres LEUKOCYTES Negative Normal NEGATIVE [facility] Comment on above: Performed By: #### E RUR #### [facility] [address] [place] [address] Dr. Aleah Peres Nitrite Ql (U) Negative Normal NEGATIVE [facility] Comment on above: Performed By: #### E RUR #### [facility] [address] [place] [address] Dr. Aleah Peres pH (U) 6.0 [pH] Normal 5-9 [facility] Comment on above: Performed By: #### E RUR #### [facility] [address] [place] [address] Dr. Aleah Peres SPEC GRAVITY 1.020 Normal 1.005-<=1.025 [facility] Comment on above: Performed By: #### E RUR #### [facility] [address] [place] [address] Dr. Aleah Peres UA PROTEIN Negative Normal NEGATIVE/ TRACE [facility] Comment on above: Performed By: #### E RUR #### [facility] [address] [address] [address] Aleah Peres UR MICRO IND NOT INDICATED Normal [facility] Comment on above: Performed By: #### E RUR #### [facility] [address] [place] [address] Dr. Aleah Peres Urobilinogen Qn (U) 0.2 {Edmund'U}/dL Normal 0.2 - 1. 0 [facility] Comment on above: Performed By: #### E RUR #### [facility] [address] [address] [address] Aleah Peres PROF 14(COMP METB)on 023 Albumin [Mass/Vol] 3.0 g/dL Critically low 3.4-5.0 [facility] Comment on above: Performed By: #### C MP #### [facility] [address] [place] [address] Dr. Aleah Peres Albumin/Globulin [Mass ratio] 0.8 {ratio} Normal [facility] Comment on above: Performed By: #### C MP #### [facility] [address] [place] [address] Dr. Aleah Peres ALP [Catalytic activity/Vol] 52 U/L Normal 46-116 [facility] Comment on above: Performed By: #### C MP #### [facility] [address] [place] [address] Dr. Aleah Peres ALT [Catalytic activity/Vol] 15 U/L Normal 14-59 [facility] Comment on above: Performed By: #### C MP #### [facility] [address] [address] [address] Aleah Peres Anion gap [Moles/Vol] 10.2 mmol/L Normal [facility] Comment on above: Performed By: #### C MP #### [facility] [address] [place] [address] Dr. Aleah Peres AST [Catalytic activity/Vol] 13 U/L Critically low 15-37 [facility] Comment on above: Performed By: #### C MP #### [facility] [address] [address] [address] Aleah Peres Bilirubin [Mass/Vol] 0.2 mg/dL Normal 0.2-1.0 [facility] Comment on above: Performed By: #### C MP #### [facility] [address] [address] [address] Aleah Peres Calcium [Mass/Vol] 9.1 mg/dL Normal 8.5-10.1 [facility] Comment on above: Performed By: #### C MP #### [facility] [address] [address] [address] Aleah Peres Chloride [Moles/Vol] 100 mmol/L Normal 98-107 [facility] Comment on above: Performed By: #### C MP #### [facility] [address] [address] [address] Aleah Peres CO2 [Moles/Vol] 28.8 mmol/L Normal 21.0-32.0 [facility] Comment on above: Performed By: #### C MP #### [facility] [address] [address] [address] Aleah Peres Creatinine [Mass/Vol] 0.56 mg/dL Normal 0.55-1.02 [facility] Comment on above: Performed By: #### C MP #### [facility] [address] [address] [address] Aleah Peres EGFR-AF PALAUAN >60 Normal >=60 [facility] Comment on above: Performed By: #### C MP #### [facility] [address] [address] [address] Aleah Peres EGFR-NON AF PALAUAN >60 Normal >=60 [facility] Comment on above: Performed By: #### C MP #### [facility] [address] [address] [address] Aleah Peres Globulin (S) [Mass/Vol] 3.9 g/dL Normal [facility] Comment on above: Performed By: #### C MP #### [facility] [address] [address] [address] Aleah Peres Glucose [Mass/Vol] 90 mg/dL Normal 74-106 [facility] Comment on above: Performed By: #### C MP #### [facility] [address] [address] [address] Aleah Peres Potassium [Moles/Vol] 4.0 mmol/L Normal 3.5-5.1 [facility] Comment on above: Performed By: #### C MP #### [facility] [address] [address] [address] Aleah Peres Protein [Mass/Vol] 6.9 g/dL Normal 6.4-8.2 [facility] Comment on above: Performed By: #### C MP #### [facility] [address] [address] [address] Aleah Peres Sodium [Moles/Vol] 135 mmol/L Critically low 136-145 [facility] Comment on above: Performed By: #### C MP #### [facility] [address] [address] [address] Aleah Peres Urea nitrogen [Mass/Vol] 4.0 mg/dL Critically low 7.0-18.0 [facility] Comment on above: Performed By: #### C MP #### [facility] [address] [address] [address] Aleah Peres Urea nitrogen/Creatinine [Mass ratio] 7.1 mg/mg Normal [facility] Comment on above: Performed By: #### C MP #### [facility] [address] [address] [address] Aleah Peres PAP ACOG PANEL 2: 21 to 29on 08-02-2022 . . Normal [facility] Comment on above: Result Comment: Perf ormed at: [facility] Performed By: #### [id number] #### [facility] [address] [address] [address] Aleah Peres Age Gdln ACOG Testing - [facility] Comment on above: Performed By: #### [id number] #### [facility] [address] [address] [address] Aleah Peres DIAGNOSIS: Comment Abnormal [facility] Comment on above: Result Comment: EPIT HELIAL CELL ABNORMALITY. LOW GRADE SQUAMOUS INTRAEPITHELIAL LESION (LSIL). Performed at: [facility] Performed By: #### [id number] #### [facility] [address] [address] [address] Aleah Peres Electronically signed by: Comment Normal [facility] Comment on above: Result Comment: Amena Arciniega MD, Pathologist Performed at: [facility] Performed By: #### [id number] #### [facility] [address] [address] [address] Aleah Peres Methodology: Comment Normal [facility] Comment on above: Result Comment: This liquid based ThinPrep(R) pap test was screened with the use of an image guided system. Performed at: [facility] Performed By: #### [id number] #### [facility] [address] [place] [address] Dr. Aleah Peres Note: Comment Normal [facility] Comment on above: Result Comment: The Pap smear is a screening test designed to aid in the detection of premalignant and malignant conditions of the uterine cervix. It is not a diagnostic procedure and should not be used as the sole means of detecting cervical cancer. Both false-positive and false-negative reports do occur. . Performed at: [facility] Performed By: #### [id number] #### [facility] [address] [address] [address] Aleah Peres Pathologist Provided ICD10 Comment Normal [facility] Comment on above: Result Comment: [id number]. [id number] Performed at: [facility] Performed By: #### [id number] #### [facility] [address] [address] [address] Aleah Peres Performed by: Comment Normal [facility] Comment on above: Result Comment: Caitlyn Crenshaw, Lacing Operator (ASCP) Performed at: [facility] Performed By: #### [id number] #### [facility] [address] [address] [address] Aleah Peres Recommendation: Comment Abnormal [facility] Comment on above: Result Comment: Sugg est follow up as clinically appropriate. Performed at: [facility] Performed By: #### [id number] #### [facility] [address] [place] [address] Dr. Aleah Peres Reflex Criteria: Comment Normal [facility] Comment on above: Result Comment: The HPV DNA reflex criteria were not met with this specimen result therefore, no HPV testing was performed. . Performed at: [facility] Performed By: #### [id number] #### [facility] [address] [place] [address] Dr. Aleah Peres Specimen adequacy: Comment Normal [facility] Comment on above: Result Comment: Sati sfactory for evaluation. Endocervical and/or squamous metaplastic cells (endocervical component) are present. Performed at: [facility] Performed By: #### [id number] #### [facility] [address] [place] [address] Dr. Aleah Peres Covid-19 PCR ([facility])on 05-25 SARS-CoV-2 (COVID-19) RNA MARY ELLEN+probe Ql (Unsp spec) Not detected Normal NOT DETECTED [facility] Comment on above: Result Comment: When [...] for this test is supported by the [place] of [employer] and Human Service's declaration that [...] used). Performed By: #### P [id number] #### [facility] [address] [place] [address] Dr. Aleah Peres Vital Signs Date Time Vital Sign Value Performing Clinician Nelly smith 12-04-2024 13:53-0400 Body mass index (BMI) [Ratio] 32.34 kg/m2 Andrzej Ayesha DO Work Phone: [facility] 12-04-2024 13:53-0400 Body weight 84.14 kg Andrzej Ayesha DO Work Phone: [facility] 12-04-2024 13:53-0400 Diastolic blood pressure 70 mm[Hg] Andrzej Ayesha DO Work Phone: [facility] 12-04-2024 13:53-0400 Systolic blood pressure 116 mm[Hg] Andrzej Ayesha DO Work Phone: [facility] 11-21-2024 14:18-0400 Body mass index (BMI) [Ratio] 32.15 kg/m2 Henrique Wang HIV PREVENTION SPECIALIST Work Phone: [facility] 11-21-2024 14:18-0400 Body weight 83.64 kg Henrique Wang HIV PREVENTION SPECIALIST Work Phone: [facility] 11-21-2024 14:06-0400 Diastolic blood pressure 70 mm[Hg] Henrique Felipe HIV PREVENTION SPECIALIST Work Phone: [facility] 11-21-2024 14:06-0400 Systolic blood pressure 102 mm[Hg] Henrique Felipe HIV PREVENTION SPECIALIST Work Phone: [facility] 11-07-2024 11:37-0400 Body mass index (BMI) [Ratio] 32.13 kg/m2 Andrzej Ayesha DO Work Phone: [facility] 11-07-2024 11:37-0400 Body weight 83.58 kg Andrzej Ayesha DO Work Phone: [facility] 11-07-2024 11:37-0400 Diastolic blood pressure 72 mm[Hg] Andrzej Ayesha DO Work Phone: [facility] 11-07-2024 11:37-0400 Systolic blood pressure 116 mm[Hg] Andrzej Ayesha DO Work Phone: [facility] 10-24-2024 11:24-0400 Body mass index (BMI) [Ratio] 32.34 kg/m2 Amy Dobbins PA Work Phone: [facility] 10-24-2024 11:24-0400 Body weight 84.14 kg Mis PA Work Phone: [facility] 10-24-2024 11:24-0400 Diastolic blood pressure 66 mm[Hg] Warren PA Work Phone: [facility] 10-24-2024 11:24-0400 Systolic blood pressure 112 mm[Hg] Amy Dobbins PA Work Phone: [facility] 10-09-2024 11:20-0400 Body mass index (BMI) [Ratio] [...] 160 cm Los Hollins MD Work Phone: [facility] 09-14-2024 10:29-0500 Body mass index (BMI) [Ratio] 32.24 kg/m2 Los Hollins MD Work Phone: [facility] 09-14-2024 10:29-0500 Body weight 82.56 kg Los Hollins MD Work Phone: [facility] 09-14-2024 10:29-0500 Diastolic blood pressure 59 mm[Hg] Los Hollins MD Work Phone: [facility] 09-14-2024 10:29-0500 Heart rate 80 /min Los Hollins MD Work Phone: [facility] 09-14-2024 10:29-0500 Systolic blood pressure 97 mm[Hg] Los Hollins MD Work Phone: [facility] 09-11-2024 11:24-0500 Body mass index (BMI) [Ratio] 31.58 kg/m2 Mis PA Work Phone: [facility] 09-11-2024 11:24-0500 Body weight 82.16 kg Mis PA Work Phone: [facility] 09-11-2024 11:24-0500 Diastolic blood pressure 70 mm[Hg] Warren PA Work Phone: [facility] [...] Body mass index (BMI) [Ratio] 30.71 kg/m2 Mis PA Work Phone: [facility] 07-16-2024 10:25-0500 Body weight 79.89 kg Mis PA Work Phone: [facility] 07-16-2024 10:25-0500 Diastolic blood pressure 70 mm[Hg] Amy VILLATORO Work Phone: [facility] 07-16-2024 10:25-0500 Systolic blood pressure 120 mm[Hg] Amy VILLATORO Work Phone: [facility] 06-07-2024 13:39-0500 Body mass index (BMI) [Ratio] 31.35 kg/m2 [facility] Nurse [facility] 06-07-2024 13:39-0500 Body weight 81.56 kg [facility] Nurse [facility] 06-07-2024 13:39-0500 Diastolic blood pressure 70 mm[Hg] [facility] Nurse [facility] 06-07-2024 13:39-0500 Systolic blood pressure 118 mm[Hg] [facility] Nurse [facility] 05-31-2024 09:40-0500 Body mass index (BMI) [Ratio] 30.86 kg/m2 Amy VILLATORO Work Phone: [facility] 05-31-2024 09:40-0500 Body weight 80.29 kg Amy VILLATORO Work Phone: [facility] 05-31-2024 09:40-0500 Diastolic blood pressure 72 mm[Hg] Amy VILLATORO Work Phone: [facility] 05-31-2024 09:40-0500 Systolic blood pressure 118 mm[Hg] Amy VILLATORO Work Phone: [facility] 08-31-2023 [...] 114 mm[Hg] Andrzej Ayesha DO Work Phone: [facility] Healthcare Encounters Encounter Date Encounter Type Care Provider Facility Start: 12-11-2024 End: 12-11-2024 Bamboo flowsheet Andrzej Ayesha DO Work Phone: [facility] Start: 12-11-2024 End: 12-11-2024 Bamboo flowsheet Andrzej Ayesha DO Work Phone: [...] Department Unsolicited Start: 11-22-2024 End: 11-22-2024 ambulatory ANDRZEJ R AYESHA [facility] Start: 11-21-2024 End: 11-21-2024 Bamboo flowsheet Henrique Wang HIV PREVENTION SPECIALIST Work Phone: [facility] Start: 11-21-2024 End: 11-21-2024 Bamboo flowsheet Henrique Wang HIV PREVENTION SPECIALIST Work Phone: [facility] Start: 11-21-2024 End: 11-21-2024 ambulatory HENRIQUE WANG Not Available Start: 11-21-2024 End: 11-21-2024 flow sheet Henrique Felipe WARD Work Phone: [facility] Comment on above: Third trimester preg hanh; 33 weeks gestation of Start: 11-07-2024 End: 11-07-2024 Bamboo flowsheet Andrzej Ayesha DO Work Phone: [facility] Start: 11-07-2024 End: 11-07-2024 Bamboo flowsheet Andrzej Ayesha DO Work Phone: [facility] Start: 11-07-2024 End: 11-07-2024 ambulatory ANDRZEJ AYESHA Not Available Start: 11-07-2024 End: 11-07-2024 Office outpatient visit 15 minutes Andrzej Ayesha [...] Telephone encounter Valerie Ramirez [facility] Start: 10-24-2024 End: 10-24-2024 Office outpatient visit 15 minutes Amy VILLATORO Work Phone: [facility] Comment on above: Third trimester preg hanh; 29 weeks gestation of Start: 10-24-2024 End: 10-24-2024 ambulatory AMY DOBBINS Not Available Start: 10-23-2024 End: 10-23-2024 ambulatory ANDRZEJ R [facility] Start: 10-15-2024 End: 10-15-2024 Clinisync Result Encounter [...] Hollins MD Work Phone: [facility] Comment on above: 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) Start: 09-14-2024 End: 09-14-2024 Orders Only Sharla Dunham RN [facility] Comment on above: Short cervix affecti ng (Primary Dx); Encounter for repeat ultrasound of pyelectasis, antepartum, single or unspecified fetus Start: 09-13-2024 End: 09-14-2024 Chart abstracting Los Hollins MD Work Phone: [facility] Start: 09-11-2024 End: 09-11-2024 ambulatory AMY DOBBNIS Not Available Start: 09-11-2024 End: 09-11-2024 Office [...] Bamboo flowsheet Andrzej Ayesha DO Work Phone: [facility] Start: 08-14-2024 End: 08-14-2024 Bamboo flowsheet Andrzej Ayesha DO Work Phone: [facility] Start: 08-14-2024 End: 08-14-2024 Office outpatient visit 15 minutes Andrzej Ayesha DO Work Phone: [facility] Comment on above: 18 weeks gestation o f ; Second trimester ; Screening, , for anatomic survey; Other headache syndrome; Constipation, unspecified constipation type Start: 08-14-2024 End: 08-14-2024 ambulatory ANDRZEJ AYESHA Not Available Start: 08-01-2024 End: 08-01-2024 ambulatory ANDRZEJ AYESHA Not Available Start: 07-16-2024 End: 07-16-2024 Bamboo flowsheet Amy VILLATORO Work Phone: [facility] Start: 07-16-2024 End: 07-24-2024 Bamboo flowsheet Amy VILLATORO Work Phone: [facility] Start: 07-16-2024 End: 07-24-2024 Clinisync Result Encounter Amy VILLATORO Work Phone: [facility] External Department Unsolicited Start: 07-16-2024 End: 07-16-2024 ambulatory AMY DOBBINS Not Available Start: 07-16-2024 End: 07-16-2024 Patient encounter procedure Amy VILLATORO Work Phone: [facility] Healthcare Start: 07-16-2024 End: 07-16-2024 Periodic preventive med est patient 18-39 yrs Amy VILLATORO Work Phone: [facility] Comment on above: Screening, , for anatomic survey; Well woman exam with routine gynecological exam; 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; Second trimester ; Encounter for screening for cervical length Start: 06-14-2024 End: 06-14-2024 Clinisync Result Encounter Andrzej Ruizo DO Work Phone: [facility] External Department Unsolicited [...] procedure Navneet Rodriguez DO Work Phone: [facility] Comment on above: Encounter for pre-em ployment drug testing (Primary Dx) Start: 08-31-2023 End: 08-31-2023 Office outpatient visit 15 minutes Andrzej Ayesha DO Work Phone: [facility] Comment on above: Third trimester preg hanh Start: 11-10-2022 End: 11-10-[address] ALEXIA BARRETT . Facility:[facility] Start: 10-22-2022 End: 10-23-2022 ambulatory NATASHA CAMARA . Facility:[facility] Start: 10-08-2022 End: 10-09-2022 ambulatory ALEXIA BARRETT Facility:[facility] Start: 10-08-2022 End: 10-08-[address] ALEXIA BARRETT . Facility: Start: 10-06-2022 End: 10-07-[address] ALEXIA BARRETT . Facility: Start: 09-17-2022 Encounter for other preprocedural examination DR ANDRZEJ HODGE . [facility] Start: 09-15-2022 End: 09-16-2022 ambulatory ANDRZEJ HODGE Facility:[facility] Start: 09-15-2022 End: 09-15-[address] ANDRZEJ [...] Procedure Procedure Detail Performing Clinician Start: 11-26-2024 TB UA (CLEAN/CATCH) BALLOON TESTER/MICRO IF IND. Andrzej Ayesha DO Work Phone: Start: 11-07-2024 Urnls dip stick/tabl et rgnt non-auto w/o micrscp Andrzej Ayesha DO Work Phone: Start: 10-15-2024 TBH UA (CLEAN/CATCH) BALLOON TESTER/MICRO IF IND. Andrzej Ayesha DO Work Phone: Start: 09-11-2024 Urnls dip stick/tabl et rgnt non-auto w/o micrscp Aym VILLATORO Work Phone: Start: 08-30-2024 AFP, SERUM, [...] for malignant neoplasm of cervix Pap Smear [facility] Start: 09-14-2025 Adult BMI Screening Adult BMI Screen ing [facility] Start: 09-14-2025 Tobacco Screening Tobacco Screening [facility] Start: 09-14-2025 End: 09-14-2025 US MFM with or without consult US MFM with or without consult Imaging Routine Short cervix affecting Encounter for repeat ultrasound of pyelectasis, antepartum, single or unspecified fetus Expected: 09/14/2025 (Approximate), Expires: 09/14/2025 [facility] Work Phone: Comment on above: Expected: 09/14/2025 (Approximate), Expires: 09/14/2025 Start: 03-25-2025 Influenza vaccination Influenza Vacc ine [facility] Start: 12-11-2024 End: 12-11-2024 Patient encounter procedure 12/11/2024 2:30 PM EDT Routine [facility] [address] [facility] [phone] Andrzej Hodge, DO [facility] [place] [address] [facility] Start: 12-04-2024 End: 12-04-2024 Patient encounter procedure 12/04/2024 1:40 PM EDT Routine [facility] [address] [facility] [address] Andrzej Hodge, DO [address] [place] [address] [facility] Start: 11-21-2024 End: 11-21-2024 Patient encounter procedure 11/21/2024 1:50 PM EDT Routine [facility] [address] [place] [id number] Amy Dobbins, PA [address] [place] [address] [facility] Start: 11-07-2024 End: 11-07-2024 Patient encounter procedure 11/07/2024 11:20 AM EDT Routine [facility] [address] [place] [phone] Andrzej Hodge, DO [address] [place] [address] [facility] Start: 10-24-2024 End: 10-24-2024 Patient encounter procedure [facility] Comment on above: Arrived Start: 10-23-2024 End: 10-23-2024 Patient encounter procedure 10/23/2024 2:15 PM EDT Appointment [facility] - Ultrasound [address] [place] [address] [facility] - Ultrasound Start: 10-09-2024 End: 10-09-2024 Patient encounter procedure 10/09/2024 11:10 AM EDT Routine [facility] [address] [place] [phone] Andrzej Hodge DO [address] [place], [place] [id number] [facility] Start: 09-14-2024 End: 09-14-2024 Patient encounter procedure 09/14/2024 11:30 AM EST Office Visit Maternal- Medicine at [facility] [address] [place] [address] Los Hollins MD [address] [facility] [address] [place] [address] Arrived Maternal- Medicine at [facility] Comment on above: Arrived Start: 09-12-2024 End: 09-12-2024 Patient encounter procedure 09/12/2024 10:30 AM EST Routine [facility] [address] [facility] [phone] Amy Dobbins PA [address] [place], [place] [id number] [facility] Start: 09-11-2024 End: 09-11-2025 CBC panel - Blood by Automated count CBC Lab Routine Diabetes mellitus screening Expected: 09/11/2024 (Approximate), Expires: 09/11/2025 [facility] Work Phone: Comment on above: Expected: 09/11/2024 (Approximate), Expires: 09/11/2025 Start: 09-11-2024 End: 09-11-2025 Measurement of glucose 1 hour after glucose challenge for glucose tolerance test Glucose tolerance, 1 hour Lab Routine Diabetes mellitus screening Expected: 09/11/2024 (Approximate), Expires: 09/11/2025 [facility] Comment on above: Expected: 09/11/2024 (Approximate), Expires: 09/11/2025 Start: 09-11-2024 End: 09-11-2024 Patient encounter procedure 09/11/2024 10:20 AM EST Routine [facility] [address] [facility] [phone] Amy Dobbins PA [address] [place] [address] [facility] Start: 09-11-2024 End: 09-11-2024 Professional / ancillary services management 09/11/2024 10:00 AM EST Ancillary Procedure [facility] [address] [place] [address] [facility] Start: 08-28-2024 End: 08-28-2024 Professional / ancillary services management 08/28/2024 1:00 PM EST Ancillary Procedure [facility] [address] [place] [phone] [facility] Start: 08-14-2024 End: 10-12-2024 Alpha fetoprotein, maternal Alpha fetoprotein, maternal Lab Routine Screening, , for anatomic survey Expected: 08/14/2024 (Approximate), Expires: 10/12/2024 [facility] Comment on above: Expected: 08/14/2024 (Approximate), Expires: 10/12/2024 Start: 08-14-2024 End: 08-14-2025 US for US OB 14+ weeks anatomy scan Imaging Routine Screening, , for anatomic survey Expected: 08/14/2024, Expires: 08/14/2025 [facility] Work Phone: Comment on above: Expected: 08/14/2024 , Expires: 08/14/2025 Start: 08-14-2024 End: 08-14-2024 Patient encounter procedure [facility] Comment on above: Arrived Start: 08-01-2024 End: 08-01-2024 Professional / ancillary services management 08/01/2024 11:30 AM EST Ancillary Procedure [facility] [address] [place] [phone] [facility] Start: 07-16-2024 End: 08-16-2024 [...] PM EST Routine [facility] [address] [place] [phone] Andrzej Hodge DO [address] [place] [address] [facility] Start: 06-07-2024 End: 06-07-2025 [...] first trimester Expected: 06/07/2024 (Approximate), Expires: 06/07/2025 [facility] Comment on above: Expected: 06/07/2024 (Approximate), Expires: 06/07/2025 Start: 06-07-2024 End: 06-07-2024 ambulatory 06/07/2024 1:30 PM EST Initial [facility] [address] [facility] [phone] [facility] Start: 06-07-2024 End: 06-07-2024 Professional / ancillary services management 06/07/2024 1:00 PM EST Ancillary Procedure [facility] [address] [place], [place] [address] [phone] [facility] Start: 05-21-2024 End: 05-21-2024 Patient encounter procedure 05/21/2024 11:00 AM EDT Office Visit [facility] [address] [place] [phone] Amy Dobbins PA [address] [place] [address] [facility] Start: 03-25-2024 Influenza vaccination Influenza Vacc ine [facility] Start: 09-14-2023 End: 09-14-2023 Patient encounter procedure 09/14/2023 3:50 PM EST Routine [facility] [address] [place] [address] Amy Dobbins PA [address] [place] [address] [facility] Start: 2018 DTaP,Tdap and Td Vaccines (1 - Tdap) DTaP,Tdap and Td Vaccines (1 - Tdap) [facility] Start: 2017 Adult BMI Follow Up Plan Adult BMI Follow Up Plan [facility] Start: 2017 Adult BMI Screening Adult BMI Screen ing [facility] Start: 2011 Depression Screening Depression Scre ening [facility] Start: 2011 Tobacco Screening Tobacco Screening [facility] Bacteria identified in Urine by Culture Urine [...] 07/16/2024 Payers Date Payer Category Payer Blue [place] [employer] [facility] Managed Care - Other ANTHEM [id number] 2022 Medicaid [id number] 2022 Medicaid [id number] 1999 Unknown [id number] 2.16.840.1.127912.3.579.2. 593 1999 Unknown [id number] 2.16.840.1.467474.3.579.2. 593 1999 Unknown [id number] 2.16.840.1.443107.3.579.2. 593 1999 Unknown [id number] 2.16.840.1.614725.3.579.2. 593 1999 Unknown [id number] 2.16.840.1.285117.3.579.2. 593 1999 Unknown [id number] 2.16.840.1.416068.3.579.2. 593 1999 Unknown [id number] 2.16.840.1.264413.3.579.2. 593 1999 Unknown [id number] 2.16.840.1.453154.3.579.2. 593 1999 Unknown [id number] 2.16.840.1.771701.3.579.2. 593 1999 Unknown [id number] 2.16.840.1.695046.3.579.2. 593 1999 Unknown [id number] 2.16.840.1.963015.3.579.2. 1286 1999 Unknown [id number] 2.16.840.1.857762.3.579.2. 1286 1999 Unknown [id number] 2.16.840.1.310892.3.579.2. 1286 1999 Unknown [id number] 2.16.840.1.629337.3.579.2. 1286 1999 Unknown [id number] 2.16.840.1.071282.3.579.2. 9 1999 Unknown [id number] 2.16.840.1.132030.3.579.2. 9 1999 Unknown [id number] 2.16.840.1.539311.3.579.2. 1258 1999 Unknown [id number] 2.16.840.1.877217.3.579.2. 1258 1999 Unknown [id number] 2.16.840.1.785111.3.579.2. 1258 1999 Unknown [id number] 2.16.840.1.066793.3.579.2. 1258 1999 Unknown [id number] 2.16.840.1.706491.3.579.2. 1258 1999 Unknown [id number] 2.16.840.1.615292.3.579.2. 1258 1999 Unknown [id number] 2.16.840.1.742260.3.579.2. 1258 1999 Unknown [id number] 2.16.840.1.606030.3.579.2. 1258 1999 Unknown [id number] 2.16.840.1.863374.3.579.2. 1258 1999 Unknown [id number] 2.16.840.1.811469.3.579.2. 1258 1999 Unknown [id number] 2.16.840.1.598393.3.579.2. 1258 1999 Unknown [id number] 2.16.840.1.320753.3.579.2. 1259 1959 Unknown [id number] 1959 Unknown [id number] Social History Date Type Detail Facility Start: 04-18-2023 End: 09-13-2024 Tobacco smoking status NHIS Never smoked tobacco [facility] Start: 08-31-2023 End: 12-04-2024 Alcohol intake Lifetime non-drinker (finding) [facility] Start: 06-13-2023 End: 05-31-2024 History of Social function [facility] Start: 06-13-2023 End: 05-31-2024 Tobacco use panel [facility] Start: 04-18-2023 Alcohol Comment caffeine: none [facility] Start: 02-17-2023 [facility] Start: 2000 Sex Assigned At Not on file [facility] Start: 09-13-2024 Sex Female (finding) [facility] Within the past 12 months we worried whether our food would run out before we got money to buy more. Never True [facility] Clinical Notes 09-15-2022 to 12-04-2024 Sharon Hare LPN - 12/04/2024 1:40 PM Tenisha Wang NP - 11/21/2024 1:50 PM Sharlene [...] nursing note reviewed. Exam conducted with a driver/refuse collector present. Vitals: Estimated body mass index is [...] in this encounter [facility] 11-21-2024 History of Presen t illness Narrative [...] nursing note reviewed. Exam conducted with a driver/refuse collector present. Vitals: Estimated body mass index is [...] for routine OB appointment. Documented by Henrique Wang NP on behalf of: Henrique Wang NP documented in this encounter [facility] 11-07-2024 History of Presen t illness Narrative [...] nursing note reviewed. Exam conducted with a driver/refuse collector present. Vitals: Estimated body mass index is [...] in this encounter [facility] 10-24-2024 History of Presen t illness Narrative [...] in this encounter [facility] 10-24-2024 Miscellaneous Notes Formattin g of this note might be different from the original. I called pt and left a message about scheduling an apt in 4 weeks, I asked her to call me back documented in this encounter [facility] 10-24-2024 Telephone encount er Note I called pt and left a message about scheduling an apt in 4 weeks, I asked her to call me back [facility] 10-09-2024 History of Presen t illness Narrative [...] nursing note reviewed. Exam conducted with a driver/refuse collector present. Vitals: Estimated body mass index is [...] was discussed/given. Pt having cervical length with [facility] in [place] coming up. Pt states its getting harder at work. No orders of the defined types were placed in this encounter. Follow Up: Patient is to return to office in 2 week for routine OB appointment. Documented by Sharon Hare LPN on behalf of: Andrzej Hodge DO documented in this encounter [facility] 09-14-2024 History of Presen t illness Narrative [...] Yes Have you been seen here at [facility] in a previous ? No Recent ER visits or hospitalizations? ER visit within the last month, was vomiting blood (was old it was just irritation from vomiting so much) Bring blood sugar log or meter with you today? (Please bring them with you for every visit at [facility]) N/A Flu vaccine (May-September)? Npo Any [...] Eye Swelling CURRENT MEDICATIONS: Current Outpatient Medications: [id number] AC-DHA ORAL, Take by mouth., Disp: , [...] and the other consultants, we search on [employer] and all the available care everywhere epic I did review all the imaging studies of the patient available on EMR, ordered by the primary care physician and the other architectural sales consultant HABITS: Patient activity no restrictions, diet [...] the patient's gear up in the post period with this condition. 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 Patient does have ultrasound scheduled with us. Thank you for allowing me to participate in Alexandra Higgins . If there any questions please do not hesitate to contact us. Sincerely, LOS HOLLINS MD documented in this encounter [facility] 09-11-2024 History of Presen t illness Narrative [...] 2.0 cm. We will refer patient to [facility] for further evaluation. Pt also complains of odor with discharge with progesterone, we will send in flagyl Documented by SHAUNA Rizvi on behalf of: SHAUNA Rizvi documented in this encounter [facility] 08-14-2024 History of Presen t illness Narrative [...] nursing note reviewed. Exam conducted with a driver/refuse collector present. Vitals: Estimated body mass index is [...] [facility] 07-16-2024 History of Presen t illness Narrative [...] nursing note reviewed. Exam conducted with a driver/refuse collector present. Vitals: Estimated body mass index is [...] of: SHAUNA Rizvi documented in this encounter [place] [address]-14-2024 History of Presen t illness Narrative Reason [...] and stay away from [facility]. Patient has also been advised to not [...] [facility] 05-31-2024 History of Presen t illness Narrative [...] [facility] 03-06-2024 History of Presen t illness Narrative Pt presents today for a pre-employment drug screen, BAT, Physical Exam, Audiogram, and PFT for [place]. Pt verified by photo ID. documented in this encounter [facility] 08-31-2023 History of Presen t illness Narrative [...] nursing note reviewed. Exam conducted with a driver/refuse collector present. Vitals: Estimated body mass index is [...] BY US CRL: 9 weeks 4 days FREN BY US CRL: 04/16/2023 IMPRESSION: 1. Intrauterine with no detectable heartbeat. Electronically authenticated by: ASHLEY NOEL Date: 2022-09-15 07:41 [facility] 09-15-2022 Note OPERATIVE NOTE OPERATION DATE: 09/15/2022 PROCEDURE: Suction D AND C. PREOPERATIVE DIAGNOSIS: First trimester missed at 10 weeks. POSTOPERATIVE DIAGNOSIS: First trimester missed at 10 weeks. ANESTHESIA: General. SURGEON: Andrzej Hodge D.O. CATERER HELPER: None. FINDINGS: Products of conception. SPECIMEN: Products [...] products of conception were removed using an 9-Omani suction curette. Excellent hemostasis was noted. The patient tolerated the procedure well. Sponge, lap, and needle counts were correct x 2. All instruments were then removed from the patient's vagina. The patient was taken to the Recovery Room in stable condition. ?? [facility] Evaluation note Diagnosis Third trimester state, [...] or unspecified fetus [facility] Short cervix affecting with delivery- Primary Cervical shortening, delivered, with or without mention of antepartum condition documented [facility] Diagnosis Second trimester state, incidental [...] encounter [facility]ructionsNot on filedocumented in this encounterProMedinv Health SystemInstructionsNot on filedocumented in this encounterProSt. [facility] SystemInstructionsNot on filedocumented in this encounterProUab [facility] SystemInstructionsNot on filedocumented in this encounterAvita Health [facility] Summary Purpose Family History No [...] section and content) DATE CREATED AUTHOR 10/12/2022 [facility] DATE CREATED AUTHOR AUTHOR'S ORGANIZ ATION 12/08/2022 [facility] DATE CREATED AUTHOR AUTHOR'S ORGANIZ ATION 09/16/2024 [facility] DATE CREATED AUTHOR AUTHOR'S ORGANIZ ATION 10/26/2024 [facility] DATE CREATED AUTHOR AUTHOR'S ORGANIZ ATION 11/27/2024 [facility] DATE CREATED AUTHOR AUTHOR'S ORGANIZ ATION 12/05/2024 [facility] EPIC Reason for [...] BE BASED ON THE PRIMARY CLINICAL RECORDS. [facility]. provides no warranty or guarantee of the accuracy or completeness of information in this document.
[2024-12-11 20:25] VITALS: BP 112/59; PULSE 99
[2024-12-11 20:26] VITALS: TEMP 35.8
[2024-12-11 21:12] LABS: Bilirubin Urine NEGATIVE (NEGATIVE); Blood Urine NEGATIVE (NEGATIVE); Clarity Urine CLEAR (CLEAR); Color Urine LT. YELLOW (YELLOW); Glucose Urine UA NEGATIVE (NEGATIVE); Ketones Urine NEGATIVE (NEGATIVE); Leukocyte Esterase Urine TRACE (NEGATIVE); Nitrite Urine NEGATIVE (NEGATIVE); Protein Urine NEGATIVE (NEG/TRACE); Specific Gravity Urine 1.025 (1.005-1.025); Urobilinogen Urine 0.2 EU/dL (0.2-1.0)
[2024-12-11 21:23] LABS: Urine Microscopic Indicated YES
[2024-12-11 21:37] LABS: Bacteria Urine MODERATE #/HPF (NONE SEEN); Cast Seen? NONE SEEN #/LPF (NONE SEEN); Crystals Seen? None Seen #/HPF (None Seen); Mucus Urine MODERATE (NONE SEEN); RBC Urine 0-2 #/HPF (0-2); Squamous Epithelial Cell Urine MODERATE #/LPF (NONE/RARE); Urine Culture Indicated YES-LC
== END 2024-12-11 22:00 | disposition home or self-care (01) ==
PROVIDERS: Admitting Provider Obstetrics & Gynecology; Visit Provider Obstetrics & Gynecology
DX: O47.03 False labor before 37 completed weeks of gestation, third trimester (principal); Z3A.35 35 weeks gestation of pregnancy
CPT/HCPCS: 59025; 81001; 87086; G0378; G0379

== ENCOUNTER 2024-12-11 19:35 | Outpatient (REF) | payer MEDICAID, SELFPAY ==
--- OUTSIDE RECORDS SUMMARY | 2024-12-11 19:38 | XMS_ITS | CCD ---
Author Organization [facility] Care Team Providers Care Legislative Correspondent Name Role Phone ALEXIA BARRETT Attending Unavailable [...] MAGDA Bryant Attending Unavailable BRANDEN, DR MAGDA Bryatn Admitting Unavailable BRANDEN, DR MAGDA Bryant Consulting [...] AYESHA, ANDRZEJ Attending Unavailable MIS, Attending Unavailable APM MENJIVAR Attending Unavailable MIS, Attending Unavailable MIS, Attending Unavailable AYESHA, ANDRZEJ Attending Unavailable HENRIQUE WANG Attending Unavailable AYESHA, ANDRZEJ Attending Unavailable Allergies Allergy Classification Reported Allergen(s) Allergy Type Date of Onset Reaction(s) Facility (6 sources) Pollen; Translations: [POLLEN EXTRACTS] Propensity to adverse reactions to drug 5 Eye Swelling [facility] (16 sources) Pollen Propensity to [...] capsule 11 08/16/2023 08/31/2023 Discontinued (Side effects) [id number]-[id number] AC-D GRANDA ORAL (4 sources) 105-IRO N-FOLIC [...] Drug Class(es) Dates Sig (Normalized) Sig (Original) [id number] 200 actuat albuterol 0.09 mg/actuat metered dose inhaler (7 sources) beta2-Adrenergic Agonist End: 06-07-2024 albuterol HFA (Ventolin HFA) 90 mcg/act inhaler every 4 (four) hours. 06/07/2024 Discontinued 27-1 MG tablet (1 source) Start: 09-21-2022 End: 08-31-2023 27-1 MG tablet 1 (one) time each day at the same time. 0 09/21/2022 08/31/2023 Discontinued (Therapy completed) TN-Mhr-WC-[place]-3 ( Gummies/DHA & FA) 0.4-32.5 MG chewable tablet (1 source) Start: 03-03-2023 End: 08-31-2023 RZ-Qry-EL-[place]-3 ( Gummies/DHA & FA) 0.4-32.5 MG chewable [...] Test Name Value Interpretation Reference Range Facility [facility] UA (CLEAN/CATCH) FIRE AND SAFETY HELPER/KEARA RO IF IND.on 11-26-2024 BILIRUBIN URINE Negative NEGATIVE [facility] thcare BLOOD URINE Negative NEGATIVE [facility] Clarity (U) SL CLOUDY CLEAR [facility] Color (U) LT. YELLOW YELLOW [facility] e GLUCOSE URINE UA Negative NEGATIVE mg/dL [facility] Interpretation and review of laboratory results Abnormal [facility] Healthcare Ketones Ql (U) Negative NEGATIVE mg/dL [facility] ealthcare Leukocyte esterase Test strip Ql (U) SMALL Abnormal NEGATIVE [facility] e NITRITE URINE Negative NEGATIVE [facility] Health care pH (U) 8.0 [pH] 5.0 - 9.0 [facility] PROTEIN URINE Negative NEG/TRACE mg/dL [facility] SPECIFIC GRAVITY URINE 1.015 1.005 - 1.025 [facility] URINE MICROSCOPIC INDICATED YES [facility] UROBILINOGEN URINE 0.2 EU/dL 0.2 - 1.0 EU/dL [facility] e Urinalysis macro (dipstick) panel (U)on 11-07-2024 Bilirubin, UA Negative Negative - 4(70) +++ mg/dL [facility] Blood, UA Negative Negative - 50 William/mcL [facility] Clarity, UA Clear [facility] re Color, UA Yellow [facility] Glucose, UA Negative Negative - 1999(110) ++++ mg/dL [facility] Interpretation and review of laboratory results Abnormal [facility] Ketones, UA Negative Negative - 160(16) ++++ mg/dL [facility] Leukocytes, UA Positive Negative - 500+++ Roma/mcL [facility] Comment on above: small Nitrite, UA Negative Negative - Positive [facility] pH, UA 6.5 5 - 9 [facility] e Protein, UA Negative Negative - 1999(20) ++++ mg/dL [facility] Spec Grav, UA 1.015 1 - 1.03 [facility] Urobilinogen, UA 0.2 0.2 - 12 mg/dL [facility] TBH UA (CLEAN/CATCH) FIRE AND SAFETY HELPER/KEARA RO IF IND.on 10-15-2024 BILIRUBIN URINE Negative [facility] BLOOD URINE Negative NEGATIVE [facility] re Clarity (U) CLEAR CLEAR [facility] re Color (U) LT. YELLOW YELLOW [facility] GLUCOSE URINE UA Negative NEGATIVE mg/dL [facility] Interpretation and review of laboratory results Abnormal [facility] Ketones Ql (U) Negative NEGATIVE mg/dL [facility] H ealthcare Leukocyte esterase Test strip Ql (U) TRACE Abnormal NEGATIVE [facility] NITRITE URINE Negative NEGATIVE [facility] care pH (U) 8.5 [pH] 5.0 - 9.0 [facility] PROTEIN URINE Negative NEG/TRACE mg/dL [facility] SPECIFIC GRAVITY URINE 1.015 1.005 - 1.025 [facility] URINE MICROSCOPIC INDICATED YES [facility] UROBILINOGEN URINE 0.2 EU/dL 0.2 - 1.0 EU/dL [facility] US OB LIMITED 1+ FETUSESon [...] UA Negative Negative - 4(70) +++ mg/dL [facility] Blood, UA Negative Negative - 50 William/mcL [facility] Clarity, UA Clear [facility] re Color, UA Yellow [facility] Glucose, UA Negative Negative - 1999(110) ++++ mg/dL [facility] Interpretation and review of laboratory results Abnormal [facility] Ketones, UA Positive Negative - 160(16) ++++ mg/dL [facility] Comment on above: 40mg/dL Leukocytes, UA Positive Negative - 500+++ Roma/mcL [facility] Comment on above: small Nitrite, UA Negative Negative - Positive [facility] pH, UA 6.5 5 - 9 [facility] Protein, UA Negative Negative - 1999(20) ++++ mg/dL [facility] Spec Grav, UA 1.025 1 - 1.03 [facility] Urobilinogen, UA 0.2 0.2 - 12 mg/dL [facility] AFP, SERUM, OPEN SPINA BIFID Aon 09-01-[address] [facility] AFP VALUE 86.3 ng/mL . [facility] [employer] e COMMENT: Comment . [facility] Health[facility] e Comment on above: Kristi Han , Ph.D., [facility] Director References: Available Upon Request. Multiples Of Median Cutoffs For AFP Elevations [place]ona 2.5 Black 2.8 IDD 2.0 Twins 4.5 Abbreviation Definitions IDD - Insulin Dep Diabetes OSBR - Open Spina Bifida Risk For further inquiries contact [employer] at [phone]. This test was developed and its performance characteristics determined by [employer]. It has not been cleared or approved by the Food and Drug Administration. Performed at: [facility] [address] [place], [place] [id number] Acoustical Tile Patternmaker: Marisel Lewis [facility], Phone: [phone] GEST. AGE ON COLLECTION DATE 21.1 . weeks [facility] GESTAT. AGE BASED ON LMP . [facility] Comment on above: Recalculations are n ot recommended when gestational dating by LMP and ultrasound are within 10 days. INSULIN DEP DIABETES No . [facility] INTERPRETATION Comment . [facility] Healt hcare Comment on above: Interpretation: [...] Customer Services to discuss available options. The [employer] recommends amniocentesis be offered to women age 35 and older. MATERNAL [age]ERN 24.[address] [facility] Healthcare MULTIPLE GESTATION No . [facility] e[facility] OSBR RISK 1 IN 7620 . [facility] Healt hcare RACE Black . [facility] Health[facility] e RESULTS Report . [facility] [employer]ora[employer] TEST RESULTS: Negative . [facility] Health care WEIGHT [address] [facility] Healthcar e N N LMP [id number] [phone] N 1 183 N N N N N Black/ [facility] [employer] e US OB 14+ WEEKS ANATOMY SCAN [...] UA Negative Negative - 4(70) +++ mg/dL [facility] Blood, UA Negative Negative - 50 William/mcL [facility] Clarity, UA Clear [facility] re Color, UA Yellow [facility] [employer]ora[facility]ar e Glucose, UA Negative Negative - 1999(110) ++++ mg/dL [facility] Interpretation and review of laboratory results Normal [facility] Ketones, UA Negative Negative - 160(16) ++++ mg/dL [facility] Leukocytes, UA Negative Negative - 500+++ Roma/mcL [facility] Nitrite, UA Negative Negative - Positive [facility] pH, UA 7 5 - 9 [facility] e Protein, UA Negative Negative - 1999(20) ++++ mg/dL [facility] Spec Grav, UA 1.02 1 - 1.03 [facility] Urobilinogen, UA 0.2 0.2 - 12 mg/dL [facility] US OB TRANSVAGINALon 025 [...] GDLNon AGE GDLN ACOG TESTING Note . [facility] Comment on above: TESTS RESULT FLAG UN ITS REF RANGE LAB Clinician Provided Cytology Information Source.............Cervix No. of containers..01 ThinPrep Vial Age Algo ACOG Kassidy... FLAG LEGEND: L-Low Normal,H-High Normal,LL-Alert Low,HH-Alert High <-Panic Low,>-Panic High,A-Abnormal,AA-Critical Abnormal Performed at: 01 =G [address] [address] Cortney Arciniega MD, IGP, RFX APTIMA HPV ASCU Note . [facility] Comment on above: TESTS RESULT FLAG UN ITS REF RANGE LAB DIAGNOSIS: 02 NEGATIVE FOR INTRAEPITHELIAL LESION OR MALIGNANCY. Specimen adequacy: 02 Satisfactory for evaluation. No endocervical component is identified. Performed by: 02 Bry Segundo, Meat Curer ([facility]) . 02 Note: Note [...] <-Panic Low,>-Panic High,A-Abnormal,AA-Critical Abnormal Performed at: [address] [id number] Cortney Arciniega MD, Performed at: = - [address] [id number] Acoustical Tile Patternmaker: Cortney Arciniega MD, Phone: [phone] Performed at: [facility] [address] [id number] Acoustical Tile Patternmaker: Cortney Arciniega MD, Phone: [phone] SPATULA-ALONE CERVIX [facility] Healthcar e Urinalysis macro (dipstick) panel (U)on 07-16-2024 Bilirubin, UA Negative Negative - 4(70) +++ mg/dL [facility] Blood, UA Negative Negative - 50 William/mcL [facility] [employer] Clarity, UA Clear [facility] Color, UA Yellow [facility] [employer] e Glucose, UA Negative Negative - 2000(110) ++++ mg/dL [facility] Interpretation and review of laboratory results Normal [facility] Ketones, UA Negative Negative - 160(16) ++++ mg/dL [facility] Leukocytes, UA Negative Negative - 500+++ Roma/mcL [facility] Nitrite, UA Negative Negative - Positive [facility] pH, UA 8.5 5 - 9 [facility] Health[facility] e Protein, UA Negative Negative - 1999(20) ++++ mg/dL [facility] Spec Grav, UA 1.02 1 - 1.03 [facility] Urobilinogen, UA 0.2 0.2 - 12 mg/dL [facility] BOX TESTon 06-14-2024 BOX TEST SENT OUT [facility] althcare BOX[address] [facility] Health[facility] e BOX2 06/14/24 [facility] UNITY BOX [facility] No Panel Informationon 06-14 [facility] Health[facility] e Rubella IGG immune statuson 06-14-2024 Rubella immune IgG IMMUNE [facility] HCG ( test) Ql (U)o n 06-07-2024 Interpretation and review of laboratory results Abnormal [facility] Preg Test, Ur Positive Negative [facility] Urinalysis macro (dipstick) panel (U)on 06-07-2024 Bilirubin, UA Negative Negative - 4(70) +++ mg/dL [facility] Blood, UA Negative Negative - 50 William/mcL [facility] Clarity, UA Clear [facility] re Color, UA Yellow [facility] e Glucose, UA Negative Negative - 1999(110) ++++ mg/dL [facility] Interpretation and review of laboratory results Abnormal [facility] Ketones, UA Negative Negative - 160(16) ++++ mg/dL [facility] Leukocytes, UA Positive Negative - 500+++ Roma/mcL [facility] Comment on above: small Nitrite, UA Negative Negative - Positive [facility] pH, UA 7.5 5 - 9 [facility] Health[facility] e Protein, UA Negative Negative - 1999(20) ++++ mg/dL [facility] Spec Grav, UA 1.02 1 - 1.03 [facility] Urobilinogen, UA 0.2 0.2 - 12 mg/dL [facility] Urinalysis macro (dipstick) panel (U)Ordered By: Shantel Rangel on 08-31-2023 Bilirubin, UA Negative Negative - 4(70) +++ mg/dL [facility] Blood, UA Negative Negative - 50 William/mcL [facility] Clarity, UA Clear [facility] Healthks re Color, UA Yellow [facility] Glucose, UA Negative Negative - 1999(110) ++++ mg/dL [facility] Interpretation and review of laboratory results Abnormal [facility] Ketones, UA Positive Negative - 160(16) ++++ mg/dL [facility] Leukocytes, UA Trace Negative - 500+++ Roma/mcL [facility] Nitrite, UA Negative Negative - Positive [facility] pH, UA 7.5 5 - 9 [facility] e Protein, UA Trace Negative - 1999(20) ++++ mg/dL [facility] Spec Grav, UA 1.020 1 - 1.03 [facility] Urobilinogen, UA 0.2 0.2 - 12 mg/dL [facility] PAP ACOG PANEL 2: 20 to 28on 11-17-2022 . . Normal [facility] Comment on above: Performed By: #### 4 [id number] #### [facility] Laboratory [address] [place] [address] Dr. Aleah Peres Age Gdln ACOG Testing - [facility] Comment on above: Performed By: #### 4 [id number] #### [facility] [address] [address] [address] Aleah Peres DIAGNOSIS: Comment [facility] Comment on above: Result Comment: NEGA TIVE FOR INTRAEPITHELIAL LESION OR MALIGNANCY. Performed By: #### 4 [id number] #### [facility] [address] [address] [address] Aleah Peres Methodology: Comment [facility] Comment on above: Result Comment: This liquid based ThinPrep(R) pap test was screened with the use of an image guided system. Performed By: #### 4 [id number] #### [facility] [address] [place] [address] Dr. Aleah Peres Note: Comment [facility] Comment on above: Result Comment: The Pap smear is a screening test designed to aid in the detection of premalignant and malignant conditions of the uterine cervix. It is not a diagnostic procedure and should not be used as the sole means of detecting cervical cancer. Both false-positive and false-negative reports do occur. . Performed By: #### 4 [id number] #### [facility] [address] [place] [address] Dr. Aleah Peres Performed by: Comment Normal [facility] Comment on above: Result Comment: Annelise Martinez Meat Curer Performed By: #### 4 [id number] #### [facility] [address] [place] [address] Dr. Aleah Peres Reflex Criteria: Comment Normal [facility] Comment on above: Result Comment: The HPV DNA reflex criteria were not met with this specimen result therefore, no HPV testing was performed. . Performed By: #### 4 [id number] #### [facility] [address] [place] [address] Dr. Aleah Peres Specimen adequacy: Comment Normal [facility] Comment on above: Result Comment: Sati sfactory for evaluation. Endocervical and/or squamous metaplastic cells (endocervical component) are present. Performed By: #### 4 [id number] #### [facility] [address] [place] [address] Dr. Aleah Peres Cytology Cervical or vaginal smear or scraping studyon 11-10-2022 [facility] OCC BLD IMMUNO SCREENon 04-0 OCCULT BLOOD Negative Normal NEGATIVE [facility] Comment on above: Performed By: #### O BSCRN #### [facility] [address] [place] [address] Dr. Aleah Peres SURGICAL PATH REPORTon 10-11 SURGICAL PATH REPORT [facility] Department of Pathology [address] [place] [address] Name: CAMERON HIGGINS : 2000 [facility] [id number] Number: [facility] : n: Admit 22 years Attending ALEXIA BARRETT Age: Provider: Ordering ALEXIA BARRETT Provider: Consulti Surgical Pathology Report ng: ACCESSION: COLLECTED DATE/TIME: RECEIVED DATE/TIME: PATHOLOGIST: [id number] 10/08/2022 12:03 EDT 10/08/2022 12:03 EDT TOM AGUERO MD Final Diagnosis Report for [place] RETAINED PRODUCTS OF CONCEPTION: - CHORIONIC [...] ald 10/08/2022 Tissue pathology report for: [facility], [address] [place] [address]; ____ Print 10/11/2022 15:01 EDT Number: Date/Time: [facility] Department of Pathology [address] [place] [phone] Name: CAMERON HIGGINS : 2000 [facility] [id number] Number: Gender Female Peter [facility] [place] : n: Admit 22 years Attending ALEXIA BARRETT Age: Provider: ALEXIA Yuan Provider: Consulti Surgical Pathology Report ng: ACCESSION: COLLECTED DATE/TIME: RECEIVED DATE/TIME: PATHOLOGIST: [id number] 10/08/2022 12:03 EDT 10/08/2022 12:03 EDT TOM AGUERO MD Gross Description PATHOLOGY SERVICES PROVIDED BY [employer] (CLIA #[id number]) in cooperation with [facility] at [address] [place] [address] ( CLIA #[id number]) Codes CPT CODE: 75718 ____ Print 10/11/2022 15:01 EDT Number: Date/Time: Normal [facility] Comment on above: Performed By: #### 9 [id number] #### [facility] Laboratory Services [address] [place] [address] Editorial Specialist: Tom Aguero MD URon 10-08-2022 , QUAL Negative Normal NEGATIVE [facility] Comment on above: Performed By: #### P REGU #### [facility] [address] [place] [address] Dr. Aleah Peres US PELVIS AND TRANSVAGon [...] Normal The [facility] SURGICAL PATH REPORTon 09-16 SURGICAL PATH REPORT [facility] Department of Pathology [address] [place] [phone] Name: ALEXANDRA HIGGINS : 2000 [facility] [id number] Number: Gender Female Peter [facility] [place] : n: Admit 22 years Attending ANDRZEJ HODGE Age: Provider: Ordering ANDRZEJ HODGE Provider: Consulti Surgical Pathology Report ng: ACCESSION: COLLECTED DATE/TIME: RECEIVED DATE/TIME: PATHOLOGIST: [id number] 09/15/2022 12:34 EST 09/15/2022 12:34 EST LILLIE KHAN, LUIS ERAZO Final Diagnosis Report for [place] PRODUCTS OF CONCEPTION, DILATION AND CURETTAGE: - CHORIONIC VILLI ARE PRESENT; NO SIGNIFICANT ATYPIA IS OBSERVED. - BENIGN MATERIAL DECIDUA PRESENT. - NO PARTS ARE IDENTIFIED. LUIS MOREIRA PATHOLOGIST (Electronic Signature) Date Verified 09/16/2022 LN Clinical Data PRE-OP DIAGNOSIS: Not specified POST-OP DIAGNOSIS: Missed PROCEDURES: D and C with suction SPECIMEN: Products of conception / resident care provider Gross Description Labeled products of conception. Received in formalin in a suction sock are multiple irregular segments of medrano pink to red black soft tissue. The individual segments have a variable granular to partially smooth glistening membranous character. The specimen in total aggregate measures 12.5 x 7.5 x 4.0 cm. There are no grossly identifiable parts. Family Practice Md sections are submitted in three cassettes. MP/ald 09/15/2022 ____ Print 09/16/2022 14:53 EST Number: Date/Time: [facility] Department of Pathology [address] [place], [place] [id number] [phone] Name: ALEXANDRA HIGGINS : 2000 [employer] [id number] Number: Gender Female [facility] : n: Admit 22 years Attending ANDRZEJ HODGE Age: Provider: Ordering ANDRZEJ HODGE Provider: Consulti Surgical Pathology Report ng: ACCESSION: COLLECTED DATE/TIME: RECEIVED DATE/TIME: PATHOLOGIST: [id number] 09/15/2022 12:34 EST 09/15/2022 12:34 EST LILLIE KHAN, LUIS ERAZO Gross Description Tissue pathology report for: [facility], [address] [place] [address]; PATHOLOGY SERVICES PROVIDED BY [employer] (CLIA #[id number]) in cooperation with [facility] at [address] [place] [address] ( CLIA #[id number]) Codes CPT CODE: 66373 ____ Print 09/16/2022 14:53 EST Number: Date/Time: Normal [facility] Comment on above: Performed By: #### [id number] #### [facility] Laboratory Services [address] [place], [place] [id number] Editorial Specialist: Tom Aguero MD CBC AUTO DIFFon 09-15-2022 BASO # 0.0 103/ul Normal 0.0-0.1 [facility] Comment on above: Performed By: #### C BC #### [facility] Laboratory [address] [place] [address] Dr. Aleah Peres Basophils/100 WBC (Bld) 0.4 % Normal 0.2-2.0 [facility] Comment on above: Performed By: #### C BC #### [facility] Laboratory [address] [place] [address] Dr. Aleah Peres EO # 0.1 103/ul Normal 0.0-0.7 [facility] Comment on above: Performed By: #### C BC #### [facility] [address] [place] [address] Dr. Aleah Peres Eosinophils/100 WBC (Bld) 1.3 % Normal 0.9-7.0 [facility] Comment on above: Performed By: #### C BC #### [facility] [address] [place] [address] Dr. Aleah Peres Erythrocyte distribution width (RBC) [Ratio] 13.8 % Normal 11.0-15.0 [facility] Comment on above: Performed By: #### C BC #### [facility] [address] [place] [address] Dr. Aleah Peres Hematocrit (Bld) [Volume fraction] 35.5 % Critically low 36.0-48.0 [facility] Comment on above: Performed By: #### C BC #### [facility] [address] [place] [address] Dr. Aleah Peres Hemoglobin (Bld) [Mass/Vol] 11.6 g/dL Critically low 12.0-16.0 [facility] Comment on above: Performed By: #### C BC #### [facility] [address] [place] [address] Dr. Aleah Peres IG # 0.03 10e3/ul Normal 0.00-0.03 [facility] Comment on above: Performed By: #### C BC #### [facility] [address] [place] [address] Dr. Aleah Peres IG % 0.4 % Normal 0.0-0.5 [facility] Comment on above: Performed By: #### C BC #### [facility] [address] [place] [address] Dr. Aleah Peres LYMPH # 2.8 103/ul Normal 1.2-3.8 [facility] Comment on above: Performed By: #### C BC #### [facility] [address] [place] [address] Dr. Aleah Peres Lymphocytes/100 WBC (Bld) 32.9 % Normal 20.5-60.0 [facility] Comment on above: Performed By: #### C BC #### [facility] [address] [place] [address] Dr. Aleah Peres MANUAL DIFF REQ NO Normal [facility] Comment on above: Performed By: #### C BC #### [facility] [address] [place] [address] Dr. Aleah Peres MCH (RBC) [Entitic mass] 26.9 pg Normal 26.7-34.0 [facility] Comment on above: Performed By: #### C BC #### [facility] [address] [place] [address] Dr. Aleah Peres MCHC (RBC) [Mass/Vol] 32.7 g/dL Normal 29.9-35.2 [facility] Comment on above: Performed By: #### C BC #### [facility] [address] [place] [address] Dr. Aleah Peres MCV (RBC) [Entitic vol] 82.4 fL Normal 81.0-99.0 [facility] Comment on above: Performed By: #### C BC #### [facility] [address] [place] [address] Dr. Aleah Peres MONO # 0.7 103/ul Normal 0.3-0.8 [facility] Comment on above: Performed By: #### C BC #### [facility] [address] [place] [address] Dr. Aleah Peres Monocytes/100 WBC (Bld) 8.6 % Normal 1.7-12.0 [facility] Comment on above: Performed By: #### C BC #### [facility] [address] [place] [address] Dr. Aleah Peres NEUT # 4.8 103/ul Normal 1.4-6.5 [facility] Comment on above: Performed By: #### C BC #### [facility] [address] [place] [address] Dr. Aleah Peres Neutrophils/100 WBC (Bld) 56.4 % Normal 43.0-75.0 [facility] Comment on above: Performed By: #### C BC #### [facility] [address] [place] [address] Dr. Aleah Peres Platelet mean volume (Bld) [Entitic vol] 9.9 fL Normal 9.5-13.5 [facility] Comment on above: Performed By: #### C BC #### [facility] [address] [place] [address] Dr. Aleah Peres PLT 316 103/ul Normal 150-450 [facility] Comment on above: Performed By: #### C BC #### [facility] [address] [place] [address] Dr. Aleah Peres RBC 4.31 106/ul Normal 4.20-5.40 [facility] Comment on above: Performed By: #### C BC #### [facility] [address] [place] [address] Dr. Aleah Peres WBC 8.4 103/ul Normal 4.0-11.0 [facility] Comment on above: Performed By: #### C BC #### [facility] [address] [place] [address] Dr. Aleah Peres PREG QUANT HCGon 09-15-2022 HCG QUANT 29096 mIU/mL Normal The [facility] Comment on above: Performed By: #### P REGQNT #### [facility] [address] [place] [address] Dr. Aleah Peres HCG RANGE SEE BELOW Normal The [facility] Comment on above: Result Comment: 5-50 0.2-1 WEEK 50-500 1-2 WEEKS 100-5,000 2-3 WEEKS 500-10,000 3-4 WEEKS 1,000-50,000 4-5 WEEKS 10,000-100,000 5-6 WEEKS 15,000-200,000 6-8 WEEKS 10,000-100,000 2-3 MONTHS Performed By: #### P REGQNT #### [facility] [address] [place], [place] [address] Dr. Aleah Peres TYPE AND SCREENon 09-15-2022 TYPE AND SCREEN Negative Normal [facility] Comment on above: Performed By: #### P REGQNT #### [facility] [address] [place], [place] [address] Dr. Aleah Peres US PELVISon 09-15-2022 US [...] Normal The [facility] US PREG TVon 09-13-2022 US PREG TV [...] Normal The [facility] CBC AUTO DIFFon 08-16-2022 BASO # 0.0 103/ul Normal 0.0-0.1 [facility] Comment on above: Performed By: #### C BC #### [facility] [address] [place] [address] Dr. Aleah Peres Basophils/100 WBC (Bld) 0.4 % Normal 0.2-2.0 [facility] Comment on above: Performed By: #### C BC #### [facility] [address] [place] [address] Dr. Aleah Peres EO # 0.1 103/ul Normal 0.0-0.7 [facility] Comment on above: Performed By: #### C BC #### [facility] [address] [place] [address] Dr. Aleah Peres Eosinophils/100 WBC (Bld) 1.4 % Normal 0.9-7.0 [facility] Comment on above: Performed By: #### C BC #### [facility] [address] [place] [address] Dr. Aleah Peres Erythrocyte distribution width (RBC) [Ratio] 13.6 % Normal 11.0-15.0 [facility] Comment on above: Performed By: #### C BC #### [facility] [address] [place] [address] Dr. Aleah Peres Hematocrit (Bld) [Volume fraction] 32.4 % Critically low 36.0-48.0 [facility] Comment on above: Performed By: #### C BC #### [facility] [address] [place] [address] Dr. Aleah Peres Hemoglobin (Bld) [Mass/Vol] 11.2 g/dL Critically low 12.0-16.0 [facility] Comment on above: Performed By: #### C BC #### [facility] [address] [place] [address] Dr. Aleah Peres IG # 0.02 10e3/ul Normal 0.00-0.03 [facility] Comment on above: Performed By: #### C BC #### [facility] [address] [place] [address] Dr. Aleah Peres IG % 0.3 % Normal 0.0-0.5 [facility] Comment on above: Performed By: #### C BC #### [facility] [address] [place] [address] [address] Aleah Peres LYMPH # 2.4 103/ul Normal 1.2-3.8 [facility] Comment on above: Performed By: #### C BC #### [facility] [address] [place] [address] [address] Aleah Peres Lymphocytes/100 WBC (Bld) 32.3 % Normal 20.5-60.0 [facility] Comment on above: Performed By: #### C BC #### [facility] [address] [place] [address] Dr. Aleah Peres MANUAL DIFF REQ NO Normal [facility] Comment on above: Performed By: #### C BC #### [facility] [address] [place] [address] Dr. Aleah Peres MCH (RBC) [Entitic mass] 26.9 pg Normal 26.7-34.0 [facility] Comment on above: Performed By: #### C BC #### [facility] [address] [place] [address] Dr. Aleah Peres MCHC (RBC) [Mass/Vol] 34.6 g/dL Normal 29.9-35.2 [facility] Comment on above: Performed By: #### C BC #### [facility] [address] [place] [address] Dr. Aleah Peres MCV (RBC) [Entitic vol] 77.9 fL Critically low 81.0-99.0 [facility] Comment on above: Performed By: #### C BC #### [facility] [address] [place] [address] Dr. Aleah Peres MONO # 0.7 103/ul Normal 0.3-0.8 [facility] Comment on above: Performed By: #### C BC #### [facility] [address] [place] [address] Dr. Aleah Peres Monocytes/100 WBC (Bld) 9.1 % Normal 1.7-12.0 [facility] Comment on above: Performed By: #### C BC #### [facility] [address] [place] [address] [address] Aleah Peres NEUT # 4.1 103/ul Normal 1.4-6.5 [facility] Comment on above: Performed By: #### C BC #### [facility] [address] [place] [address] [address] Aleah Peres Neutrophils/100 WBC (Bld) 56.5 % Normal 43.0-75.0 [facility] Comment on above: Performed By: #### C BC #### [facility] [address] [place] [address] [address] Aleah Peres Platelet mean volume (Bld) [Entitic vol] 9.4 fL Critically low 9.5-13.5 [facility] Comment on above: Performed By: #### C BC #### [facility] [address] [place] [address] Dr. Aleah Peres PLT 303 103/ul Normal 150-450 [facility] Comment on above: Performed By: #### C BC #### [facility] [address] [place] [address] Dr. Aleah Peres RBC 4.16 106/ul Critically low 4.20-5.40 [facility] Comment on above: Performed By: #### C BC #### [facility] [address] [place] [address] Dr. Aleah Peres WBC 7.3 103/ul Normal 4.0-11.0 [facility] Comment on above: Performed By: #### C BC #### [facility] [address] [place] [address] Dr. Aleah Peres ER URINE PROFILEon 3 Bilirubin Ql (U) Negative Normal NEGATIVE [facility] Comment on above: Performed By: #### E RUR #### [facility] [address] [place] [address] Dr. Aleah Peres Clarity (U) CLEAR Normal CLEAR The [facility] Comment on above: Performed By: #### E RUR #### [facility] [address] [place], [place] [address] Dr. Aleah Peres Color (U) YELLOW Normal YELLOW The [facility] Comment on above: Performed By: #### E RUR #### [facility] [address] [place] [address] Dr. Aleah OMALLEY A micrscopic examination will be performed if indicated. Normal The [facility] Comment on above: Performed By: #### E RUR #### [facility] [address] [place] [address] Dr. Aleah Peres Glucose Ql (U) Negative Normal NEGATIVE The [facility] Comment on above: Performed By: #### E RUR #### [facility] [address] [place] [address] Dr. Aleah Peres Hemoglobin Ql (U) Negative Normal NEGATIVE [facility] Comment on above: Performed By: #### E RUR #### [facility] [address] [place] [address] Dr. Aleah Peres Ketones Ql (U) Negative Normal NEGATIVE The [facility] Comment on above: Performed By: #### E RUR #### [facility] [address] [place] [address] Dr. Aleah Peres LEUKOCYTES Negative Normal NEGATIVE [facility] Comment on above: Performed By: #### E RUR #### [facility] [address] [place] [address] Dr. Aleah Peres Nitrite Ql (U) Negative Normal NEGATIVE [facility] Comment on above: Performed By: #### E RUR #### [facility] [address] [place] [address] Dr. Aleah Peres pH (U) 6.0 [pH] Normal 5-9 [facility] Comment on above: Performed By: #### E RUR #### [facility] [address] [place] [address] Dr. Aleah Peres SPEC GRAVITY 1.020 Normal 1.005-<=1.025 [facility] Comment on above: Performed By: #### E RUR #### [facility] [address] [place] [address] Dr. Aleah Peres UA PROTEIN Negative Normal NEGATIVE/ TRACE [facility] Comment on above: Performed By: #### E RUR #### [facility] [address] [place] [address] [address] Aleah Peres UR MICRO IND NOT INDICATED Normal [facility] Comment on above: Performed By: #### E RUR #### [facility] [address] [place] [address] Dr. Aleah Peres Urobilinogen Qn (U) 0.2 {Edmund'U}/dL Normal 0.2 - 1. 0 [facility] Comment on above: Performed By: #### E RUR #### [facility] [address] [place] [address] [address] Aleah Peres PROF 14(COMP METB)on 023 Albumin [Mass/Vol] 3.0 g/dL Critically low 3.4-5.0 [facility] Comment on above: Performed By: #### C MP #### [facility] [address] [place] [address] Dr. Aleah Peres Albumin/Globulin [Mass ratio] 0.8 {ratio} Normal [facility] Comment on above: Performed By: #### C MP #### [facility] [address] [place] [address] Dr. Aleah Peres ALP [Catalytic activity/Vol] 52 U/L Normal 46-116 [facility] Comment on above: Performed By: #### C MP #### [facility] [address] [place] [address] Dr. Aleah Peres ALT [Catalytic activity/Vol] 15 U/L Normal 14-59 [facility] Comment on above: Performed By: #### C MP #### [facility] [address] [place] [address] [address] Aleah Perse Anion gap [Moles/Vol] 10.2 mmol/L Normal [facility] Comment on above: Performed By: #### C MP #### [facility] [address] [place] [address] Dr. Aleah Peres AST [Catalytic activity/Vol] 13 U/L Critically low 15-37 [facility] Comment on above: Performed By: #### C MP #### [facility] [address] [place] [address] [address] Aleah Peres Bilirubin [Mass/Vol] 0.2 mg/dL Normal 0.2-1.0 [facility] Comment on above: Performed By: #### C MP #### [facility] [address] [place] [address] [address] Aleah Peres Calcium [Mass/Vol] 9.1 mg/dL Normal 8.5-10.1 [facility] Comment on above: Performed By: #### C MP #### [facility] [address] [place] [address] [address] Aleah Peres Chloride [Moles/Vol] 100 mmol/L Normal 98-107 [facility] Comment on above: Performed By: #### C MP #### [facility] [address] [place] [address] [address] Aleah Peres CO2 [Moles/Vol] 28.8 mmol/L Normal 21.0-32.0 [facility] Comment on above: Performed By: #### C MP #### [facility] [address] [place] [address] [address] Aleah Peres Creatinine [Mass/Vol] 0.56 mg/dL Normal 0.55-1.02 [facility] Comment on above: Performed By: #### C MP #### [facility] [address] [place] [address] [address] Aleah Peres EGFR-AF BAHRAINI >60 Normal >=60 [facility] Comment on above: Performed By: #### C MP #### [facility] [address] [place] [address] [address] Aleah Peres EGFR-NON AF BAHRAINI >60 Normal >=60 [facility] Comment on above: Performed By: #### C MP #### [facility] [address] [place] [address] [address] Aleah Peres Globulin (S) [Mass/Vol] 3.9 g/dL Normal [facility] Comment on above: Performed By: #### C MP #### [facility] [address] [place] [address] [address] Aleah Peres Glucose [Mass/Vol] 90 mg/dL Normal 74-106 [facility] Comment on above: Performed By: #### C MP #### [facility] [address] [place] [address] [address] Aleah Peres Potassium [Moles/Vol] 4.0 mmol/L Normal 3.5-5.1 [facility] Comment on above: Performed By: #### C MP #### [facility] [address] [place] [address] [address] Aleah Peres Protein [Mass/Vol] 6.9 g/dL Normal 6.4-8.2 [facility] Comment on above: Performed By: #### C MP #### [facility] [address] [place] [address] [address] Aleah Peres Sodium [Moles/Vol] 135 mmol/L Critically low 136-145 [facility] Comment on above: Performed By: #### C MP #### [facility] [address] [place] [address] [address] Aleah Peres Urea nitrogen [Mass/Vol] 4.0 mg/dL Critically low 7.0-18.0 [facility] Comment on above: Performed By: #### C MP #### [facility] [address] [place] [address] [address] Aleah Peres Urea nitrogen/Creatinine [Mass ratio] 7.1 mg/mg Normal [facility] Comment on above: Performed By: #### C MP #### [facility] [address] [place] [address] [address] Aleah Peres PAP ACOG PANEL 2: 20 to 28on 08-02-2022 . . Normal [facility] Comment on above: Result Comment: Perf ormed at: WB Performed By: #### [id number] #### [facility] [address] [place] [address] [address] Aleah Peres Age Gdln ACOG Testing - [facility] Comment on above: Performed By: #### [id number] #### [facility] [address] [place] [address] [address] Aleah Peres DIAGNOSIS: Comment Abnormal [facility] Comment on above: Result Comment: EPIT HELIAL CELL ABNORMALITY. LOW GRADE SQUAMOUS INTRAEPITHELIAL LESION (LSIL). Performed at: WB Performed By: #### [id number] #### [facility] [address] [place] [address] [address] Aleah Peres Electronically signed by: Comment Normal [facility] Comment on above: Result Comment: Amena Arciniega MD, Pathologist Performed at: WB Performed By: #### [id number] #### [facility] [address] [place] [address] [address] Aleah Peres Methodology: Comment Normal [facility] Comment on above: Result Comment: This liquid based ThinPrep(R) pap test was screened with the use of an image guided system. Performed at: WB Performed By: #### [id number] #### [facility] [address] [place] [address] Dr. Aleah Peres Note: Comment Normal [facility] Comment on above: Result Comment: The Pap smear is a screening test designed to aid in the detection of premalignant and malignant conditions of the uterine cervix. It is not a diagnostic procedure and should not be used as the sole means of detecting cervical cancer. Both false-positive and false-negative reports do occur. . Performed at: WB Performed By: #### [id number] #### [facility] [address] [place] [address] [address] Aleah Peres Pathologist Provided ICD10 Comment Normal [facility] Comment on above: Result Comment: [id number] Performed at: WB Performed By: #### [id number] #### [facility] [address] [place] [address] [address] Aleah Peres Performed by: Comment Normal [facility] Comment on above: Result Comment: Caitlyn Crenshaw, Meat Curer (ASCP) Performed at: BA Performed By: #### [id number] #### [facility] [address] [place] [address] [address] Aleah Peres Recommendation: Comment Abnormal [facility] Comment on above: Result Comment: Sugg est follow up as clinically appropriate. Performed at: WB Performed By: #### [id number] #### [facility] [address] [place] [address] Dr. Aleah Peres Reflex Criteria: Comment Normal [facility] Comment on above: Result Comment: The HPV DNA reflex criteria were not met with this specimen result therefore, no HPV testing was performed. . Performed at: WB Performed By: #### [id number] #### [facility] [address] [place] [address] Dr. Aleah Peres Specimen adequacy: Comment Normal [facility] Comment on above: Result Comment: Sati sfactory for evaluation. Endocervical and/or squamous metaplastic cells (endocervical component) are present. Performed at: WB Performed By: #### [id number] #### [facility] [address] [place] [address] Dr. Aleah Peres Covid-19 PCR ([facility])on 05-25 SARS-CoV-2 (COVID-19) RNA MARY ELLEN+probe Ql (Unsp spec) Not detected Normal NOT DETECTED The [facility] Comment on above: Result Comment: When diagnostic [...] for this test is supported by the [place] of Health and Human Service's declaration that [...] REGQNT #### [facility] [address] [place] [address] Dr. Aleah Peres Vital Signs Date Time Vital Sign Value Performing Clinician Nelly smith 12-04-2024 13:53-0400 Body mass index (BMI) [Ratio] 32.34 kg/m2 Andrzej Ayesha DO Work Phone: [facility] 12-04-2024 13:53-0400 Body weight 84.14 kg Andrzej Ayesha DO Work Phone: [facility] 12-04-2024 13:53-0400 Diastolic blood pressure 70 mm[Hg] Andrzej Ayesha DO Work Phone: [facility] 12-04-2024 13:53-0400 Systolic blood pressure 116 mm[Hg] Andrzej Ayesha DO Work Phone: [facility] 11-21-2024 14:18-0400 Body mass index (BMI) [Ratio] 32.15 kg/m2 Henrique Wang MUSHROOM CULTIVATOR Work Phone: [facility] 11-21-2024 14:18-0400 Body weight 83.64 kg Henrique Wang MUSHROOM CULTIVATOR Work Phone: [facility] 11-21-2024 14:06-0400 Diastolic blood pressure 70 mm[Hg] Henrique Felipe MUSHROOM CULTIVATOR Work Phone: [facility] 11-21-2024 14:06-0400 Systolic blood pressure 102 mm[Hg] Henrique Felipe MUSHROOM CULTIVATOR Work Phone: [facility] 11-07-2024 11:37-0400 Body mass index (BMI) [Ratio] 32.13 kg/m2 Andrzej Yaesha DO Work Phone: [facility] 11-07-2024 11:37-0400 Body weight 83.58 kg Andrzej Ayesha DO Work Phone: [facility] 11-07-2024 11:37-0400 Diastolic blood pressure 72 mm[Hg] Andrzej Ayesha DO Work Phone: [facility] 11-07-2024 11:37-0400 Systolic blood pressure 116 mm[Hg] Andrzej Ayesha DO Work Phone: [facility] 10-24-2024 11:24-0400 Body mass index (BMI) [Ratio] 32.34 kg/m2 Amy Dobbins PA Work Phone: [facility] 10-24-2024 11:24-0400 Body weight 84.14 kg Mis PA Work Phone: [facility] 10-24-2024 11:24-0400 Diastolic blood pressure 66 mm[Hg] Laverne PA Work Phone: [facility] 10-24-2024 11:24-0400 Systolic blood pressure 112 mm[Hg] Amy Dobbins PA Work Phone: [facility] 10-09-2024 11:20-0400 Body mass index (BMI) [Ratio] 32.15 kg/m2 Andrzej Ayesha DO Work Phone: [facility] 10-09-2024 11:20-0400 Body weight 83.64 kg Andrzej Ayesha DO Work Phone: [facility] 10-09-2024 11:20-0400 Diastolic blood pressure 68 mm[Hg] Andrzej Ayesha DO Work Phone: [facility] 10-09-2024 11:20-0400 Systolic blood pressure 102 mm[Hg] Andrzej Ayesha DO Work Phone: [facility] 09-14-2024 10:29-0500 Body height 160 cm Los Hollins MD Work Phone: [facility] 09-14-2024 10:29-0500 Body mass index (BMI) [Ratio] 32.24 kg/m2 Los Hollins MD Work Phone: [facility] 09-14-2024 10:29-0500 Body weight 82.56 kg Los Hollins MD Work Phone: [facility] 09-14-2024 10:29-0500 Diastolic blood pressure 59 mm[Hg] Los Hollins MD Work Phone: [facility] 09-14-2024 10:29-0500 Heart rate 80 /min Los Hollins MD Work Phone: [facility] 09-14-2024 10:29-0500 Systolic blood pressure 97 mm[Hg] Los Hollins MD Work Phone: [facility] 09-11-2024 11:24-0500 Body mass index (BMI) [Ratio] 31.58 kg/m2 Mis PA Work Phone: [facility] 09-11-2024 11:24-0500 Body weight 82.16 kg Mis PA Work Phone: [facility] 09-11-2024 11:24-0500 Diastolic blood pressure 70 mm[Hg] Laverne PA Work Phone: [facility] 09-11-2024 11:24-0500 Systolic blood pressure 98 mm[Hg] Mis PA Work Phone: [facility] 08-14-2024 12:05-0500 Body mass index (BMI) [Ratio] 31.91 kg/m2 Andrzej Ayesha DO Work Phone: [facility] 08-14-2024 12:05-0500 Body weight 83.01 kg Andrzej Ayesha DO Work Phone: [facility] 08-14-2024 12:05-0500 Diastolic blood pressure 60 mm[Hg] Andrzej Ayesha DO Work Phone: [facility] 08-14-2024 12:05-0500 Systolic blood pressure 110 mm[Hg] Andrzej Ayesha DO Work Phone: [facility] 07-16-2024 10:25-0500 Body mass index (BMI) [Ratio] 30.71 kg/m2 Mis PA Work Phone: [facility] 07-16-2024 10:25-0500 Body weight 79.89 kg Mis PA Work Phone: [facility] 07-16-2024 10:25-0500 Diastolic blood pressure 70 mm[Hg] Amy VILLATORO Work Phone: [facility] 07-16-2024 10:25-0500 Systolic blood pressure 120 mm[Hg] Amy VILLATORO Work Phone: [facility] 06-07-2024 13:39-0500 Body mass index (BMI) [Ratio] 31.35 kg/m2 Nom Nurse [facility] 06-07-2024 13:39-0500 Body weight 81.56 kg [facility] Nurse [facility] 06-07-2024 13:39-0500 Diastolic blood pressure 70 mm[Hg] [facility] Nurse [facility] 06-07-2024 13:39-0500 Systolic blood pressure 118 mm[Hg] [facility] Nurse [facility] 05-31-2024 09:40-0500 Body mass index (BMI) [Ratio] 30.86 kg/m2 Amy VILLATORO Work Phone: [facility] 05-31-2024 09:40-0500 Body weight 80.29 kg Amy VILLATORO Work Phone: [facility] 05-31-2024 09:40-0500 Diastolic blood pressure 72 mm[Hg] Amy VILLATORO Work Phone: [facility] 05-31-2024 09:40-0500 Systolic blood pressure 118 mm[Hg] Amy VILLATORO Work Phone: [facility] 08-31-2023 13:43-0500 Body mass index (BMI) [Ratio] 33.2 kg/m2 Andrzej Ayesha DO Work Phone: [facility] 08-31-2023 13:43-0500 Body weight 86.36 kg Andrzej Ayesha DO Work Phone: [facility] 08-31-2023 13:43-0500 Diastolic blood pressure 70 mm[Hg] Andrzej Ayesha DO Work Phone: [facility] 08-31-2023 13:43-0500 Systolic blood pressure 114 mm[Hg] Andrzej Ayesha DO [facility] [...] 11-22-2024 End: 11-22-2024 ambulatory ANDRZEJ R AYESHA [facility] Start: 11-21-2024 End: 11-21-2024 Bamboo flowsheet Henrique Wang MUSHROOM CULTIVATOR Work Phone: [facility] Start: 11-21-2024 End: 11-21-2024 Bamboo flowsheet Henrique Wang MUSHROOM CULTIVATOR Work Phone: [facility] Start: 11-21-2024 [...] Telephone encounter Valerie Ramirez Maternal- Medicine at [facility] Start: 10-24-2024 End: 10-24-2024 Office outpatient visit 15 minutes Amy VILLATORO Work Phone: [facility] Comment on above: Third trimester preg hanh; 29 weeks gestation of Start: 10-24-2024 End: 10-24-2024 ambulatory AMY DOBBINS Not Available Start: 10-23-2024 End: 10-23-2024 ambulatory ANDRZEJ R [facility] Start: 10-15-2024 End: 10-15-2024 Clinisync Result Encounter [...] Hollins MD Work Phone: [facility]- [facility] at [facility] Comment on above: 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) Start: 09-14-2024 End: 09-14-2024 Orders Only Sharla Dunham RN M[facility]- Medicine at [facility] Comment on above: Short cervix affecti ng (Primary Dx); Encounter for repeat ultrasound of pyelectasis, antepartum, single or unspecified fetus Start: 09-13-2024 End: 09-14-2024 Chart abstracting Los Hollins MD Work Phone: [facility]- [facility] at [facility] Start: 09-11-2024 End: 09-11-2024 ambulatory [...] Bamboo flowsheet Andrzej Ayesha DO Work Phone: [facility] Start: 08-14-2024 End: 08-14-2024 Bamboo flowsheet Andrzej Ayesha DO Work Phone: [facility] Start: 08-14-2024 End: 08-14-2024 Office outpatient visit 15 minutes Andrzej Ayesha DO Work Phone: [facility] Comment on above: 18 weeks gestation o f ; Second trimester ; Screening, , for anatomic survey; Other headache syndrome; Constipation, unspecified constipation type Start: 08-14-2024 End: 08-14-2024 ambulatory ANDRZEJ AYESHA Not Available Start: 08-01-2024 End: 08-01-2024 ambulatory ANDRZEJ AYESHA Not Available Start: 07-16-2024 End: 07-16-2024 Bamboo flowsheet Amy VILLATORO Work Phone: [facility] Start: 07-16-2024 End: 07-24-2024 Bamboo flowsheet Amy VILLATORO Work Phone: [facility] Start: 07-16-2024 End: 07-24-2024 Clinisync Result Encounter Amy VILLATORO Work Phone: [facility] External Department Unsolicited Start: 07-16-2024 End: 07-16-2024 ambulatory AMY DOBBINS Not Available Start: 07-16-2024 End: 07-16-2024 Patient encounter procedure Amy VILLATORO Work Phone: [facility] Healthcare Start: 07-16-2024 End: 07-16-2024 Periodic preventive med est patient 18-39 yrs Amy VILLATORO Work Phone: [facility] Comment on above: Screening, , [...] procedure Navneet Rodriguez DO Work Phone: [facility] Comment on above: Encounter [...] Start: 10-08-2022 End: 10-09-2022 ambulatory ALEXIA BARRETT Facility:[facility] Start: 10-08-2022 End: 10-08-[address] ALEXIA BARRETT . Facility: Start: 10-06-2022 End: 10-07-[address] ALEXIA BARRETT . Facility: Start: 09-17-2022 Encounter for other preprocedural examination DR ANDRZEJ HODGE . [facility] Start: 09-15-2022 End: 09-16-2022 ambulatory ANDRZEJ HODGE Facility:[facility] Start: 09-15-2022 End: 09-15-[address] ANDRZEJ [...] Performing Clinician Start: 11-26-2024 TB UA (CLEAN/CATCH) FIRE AND SAFETY HELPER/MICRO IF IND. Andrzej Ayesha DO Work Phone: Start: 11-07-2024 Urnls dip stick/tabl et rgnt non-auto w/o micrscp Andrzej Ayesha DO Work Phone: Start: 10-15-2024 TBH UA (CLEAN/CATCH) FIRE AND SAFETY HELPER/MICRO IF IND. Andrzej Ayesha DO Work Phone: [...] for malignant neoplasm of cervix Pap Smear [facility] Start: 09-14-2025 Adult BMI Screening Adult BMI Screen ing [facility] Start: 09-14-2025 Tobacco Screening Tobacco Screening [facility] Start: 09-14-2025 End: 09-14-2025 US MFM with or without consult US MFM with or without consult Imaging Routine Short cervix affecting Encounter for repeat ultrasound of pyelectasis, antepartum, single or unspecified fetus Expected: 09/14/2025 (Approximate), Expires: 09/14/2025 [facility] Work Phone: Comment on above: Expected: 09/14/2025 (Approximate), Expires: 09/14/2025 Start: 03-25-2025 Influenza vaccination Influenza Vacc ine [facility] Start: 12-11-2024 End: 12-11-2024 Patient encounter procedure 12/11/2024 2:30 PM EDT Routine [facility] [address] [place] [id number] Andrzej Hodge, DO [facility] [place] [address] [facility] Start: 12-04-2024 End: 12-04-2024 Patient encounter procedure 12/04/2024 1:40 PM EDT Routine [facility] [address] [place] [phone] Andrzej Hodge, DO [address] [place] [address] [facility] Start: 11-21-2024 End: 11-21-2024 Patient encounter procedure 11/21/2024 1:50 PM EDT Routine [facility] [address] [place] [id number] Amy Dobbins, PA [address] [place] [address] [facility] Start: 11-07-2024 End: 11-07-2024 Patient encounter procedure 11/07/2024 11:20 AM EDT Routine [facility] [address] [place] [phone] Andrzej Hodge, DO [address] [place] [address] [facility] Start: 10-24-2024 End: 10-24-2024 Patient encounter procedure [facility] Comment on above: Arrived Start: 10-23-2024 End: 10-23-2024 Patient encounter procedure 10/23/2024 2:15 PM EDT Appointment [facility] [address] [place] [address] [facility] Start: 10-09-2024 End: 10-09-2024 Patient encounter procedure 10/09/2024 11:10 AM EDT Routine [facility] [address] [place] [phone] Andrzej Hodge DO [address] [place], [place] [id number] [facility] Start: 09-14-2024 End: 09-14-2024 Patient encounter procedure 09/14/2024 11:30 AM EST Office Visit Maternal- Medicine at [facility] [address] [place] [address] Los Hollins MD [address] [facility] [place] [address] Arrived [facility]- [facility] at [facility] Comment on above: Arrived Start: 09-12-2024 End: 09-12-2024 Patient encounter procedure 09/12/2024 10:30 AM EST Routine [facility] [address] [place] [phone] Amy Dobbins PA [address] [place], [place] [id number] [facility] Start: 09-11-2024 End: 09-11-2025 [...] 09/11/2025 [facility] Comment on above: Expected: 09/11/2024 (Approximate), Expires: 09/11/2025 Start: 09-11-2024 End: 09-11-2024 Patient encounter procedure 09/11/2024 10:20 AM EST Routine [facility] [address] [place] [phone] Amy Dobbins PA [address] [place] [address] [facility] Start: 09-11-2024 End: 09-11-2024 Professional / ancillary services management 09/11/2024 10:00 AM EST Ancillary Procedure [facility] [address] [place] [phone] [facility] Start: 08-28-2024 End: 08-28-2024 Professional / ancillary services management 08/28/2024 1:00 PM EST Ancillary Procedure [facility] [address] [place] [phone] [facility] Start: 08-14-2024 End: 10-12-2024 Alpha fetoprotein, maternal Alpha fetoprotein, maternal Lab Routine Screening, , for anatomic survey Expected: 08/14/2024 (Approximate), Expires: 10/12/2024 [facility] Comment on above: Expected: 08/14/2024 (Approximate), Expires: 10/12/2024 Start: 08-14-2024 End: 08-14-2025 US for US OB 14+ weeks anatomy scan Imaging Routine Screening, , for anatomic survey Expected: 08/14/2024, Expires: 08/14/2025 [facility] Work Phone: Comment on above: Expected: 08/14/2024 , Expires: 08/14/2025 Start: 08-14-2024 End: 08-14-2024 Patient encounter procedure [facility] Comment on above: Arrived Start: 08-01-2024 End: 08-01-2024 Professional / ancillary services management 08/01/2024 11:30 AM EST Ancillary Procedure [facility] [address] [place] [phone] [facility] Start: 07-16-2024 End: 08-16-2024 [...] PM EST Routine [facility] [address] [place] [phone] Andrzej Hodge DO [address] [place] [address] [facility] Start: 06-07-2024 End: 06-07-2025 [...] PM EST Initial [facility] [address] [place] [phone] [facility] Start: 06-07-2024 End: 06-07-2024 Professional / ancillary services management 06/07/2024 1:00 PM EST Ancillary Procedure [facility] [address] [place], [place] [address] [phone] [facility] Start: 05-21-2024 End: 05-21-2024 Patient encounter procedure 05/21/2024 11:00 AM EDT Office Visit [facility] [address] [place] [phone] Amy Dobbins PA [address] [place] [address] [facility] Start: 03-25-2024 Influenza vaccination Influenza Vacc in[facility] Start: 09-14-2023 End: 09-14-2023 Patient encounter procedure 09/14/2023 3:50 PM EST Routine [facility] [address] [place] [address] Amy Dobbins PA [address] [place] [address] [facility] Start: 2018 DTaP,Tdap and Td Vaccines (1 - Tdap) DTaP,Tdap and Td Vaccines (1 - Tdap) [facility] Start: 2017 Adult BMI Follow Up Plan Adult BMI Follow Up Plan [facility] Start: 2017 Adult BMI Screening Adult BMI Screen ing [facility] Start: 2011 Depression Screening Depression Scre ening [facility] Start: 2011 Tobacco Screening Tobacco Screening [facility] Bacteria identified in Urine by Culture Urine culture Microbiology Routine Missed menses Ordered: 06/07/2024 [facility] Comment on above: Ordered: 06/07/2024 Bacteria identified in Urine by Culture Urine culture Microbiology Routine BV (bacterial vaginosis) Ordered: 09/11/2024 [facility] Comment on above: Ordered: 09/11/2024 CBC W Auto Differential panel - Blood CBC and differential Lab Routine Missed menses , unspecified gestational age Ordered: 06/07/2024 [facility] Comment on above: Ordered: 06/07/2024 CHLAMYDIA TRACHOMATI S (GENITO/STI) CHLAMYDIA TRACHOMATIS (GENITO/STI) Lab Routine Second trimester Ordered: 07/16/2024 [facility] Comment on above: Ordered: 07/16/2024 Cytology Cervical or vaginal smear or scraping study Pap Smear Pathology and Cytology Routine Well woman exam with routine gynecological exam 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 Second trimester Ordered: 07/16/2024 [facility] Work Phone: Comment on above: Ordered: 07/16/2024 Hemoglobin A1c/Hemoglobin.total in Blood Hemoglobin A1c Lab Routine Missed menses , unspecified gestational age Ordered: 06/07/2024 [facility] Comment on above: Ordered: 06/07/2024 Hepatitis B virus surface Ag [Presence] in Serum or Plasma by Immunoassay Hepatitis B surface antigen Lab Routine Missed menses , unspecified gestational age Ordered: 06/07/2024 [facility] Comment on above: Ordered: 06/07/2024 Hepatitis C virus Ab [Presence] in Serum or Plasma by Immunoassay Hepatitis C antibody Lab Routine Missed menses , unspecified gestational age Ordered: 06/07/2024 [facility] Comment on above: Ordered: 06/07/2024 HIV-1/HIV-2 antigen/antibody combination immunoassay HIV-1 and HIV-2 antibodies Lab Routine Missed menses , unspecified gestational age Ordered: 06/07/2024 [facility] Comment on above: Ordered: 06/07/2024 Neisseria gonorrhoea e DNA [Presence] in Unspecified specimen by MARY ELLEN with probe detection Neisseria gonorrhea DNA probe, direct Lab Routine Second trimester Ordered: 07/16/2024 [facility] Comment on above: Ordered: 07/16/2024 Reagin Ab [Presence] in Serum by RPR RPR Lab Routine Missed menses , unspecified gestational age Ordered: 06/07/2024 [facility] Comment on above: Ordered: 06/07/2024 Rubella antibody, IgG Rubella an tibody, IgG Lab Routine Missed menses , unspecified gestational age Ordered: 06/07/2024 [facility] Comment on above: Ordered: 06/07/2024 SURESWAB(R) ADVANCED VAGINITIS PLUS, TMA SURESWAB(R) ADVANCED VAGINITIS PLUS, TMA Pathology and Cytology Routine Second trimester Ordered: 07/16/2024 [facility] Comment on above: Ordered: 07/16/2024 Payers Date Payer Category Payer Blue [place] [facility] Managed Care - Other ANTHEM [id number] 2022 Medicaid [id number] 2022 Medicaid [id number] 1999 Unknown [id number] 2.16.840.1.024065.3.579.2. 593 1999 Unknown [id number] 2.16.840.1.768938.3.579.2. 593 1999 Unknown [id number] 2.16.840.1.642325.3.579.2. 593 1999 Unknown [id number] 2.16.840.1.166816.3.579.2. 593 1999 Unknown [id number] 2.16.840.1.767230.3.579.2. 593 1999 Unknown [id number] 2.16.840.1.453010.3.579.2. 593 1999 Unknown [id number] 2.16.840.1.772185.3.579.2. 593 1999 Unknown [id number] 2.16.840.1.692181.3.579.2. 593 1999 Unknown [id number] 2.16.840.1.584677.3.579.2. 593 1999 Unknown [id number] 2.16.840.1.967676.3.579.2. 593 1999 Unknown [id number] 2.16.840.1.176698.3.579.2. 1286 1999 Unknown [id number] 2.16.840.1.447119.3.579.2. 1286 1999 Unknown [id number] 2.16.840.1.682873.3.579.2. 1286 1999 Unknown [id number] 2.16.840.1.854771.3.579.2. 1286 1999 Unknown [id number] 2.16.840.1.432938.3.579.2. 9 1999 Unknown [id number] 2.16.840.1.473299.3.579.2. 9 1999 Unknown [id number] 2.16.840.1.180047.3.579.2. 1258 1999 Unknown [id number] 2.16.840.1.487505.3.579.2. 1258 1999 Unknown [id number] 2.16.840.1.625474.3.579.2. 1258 1999 Unknown [id number] 2.16.840.1.720372.3.579.2. 1258 1999 Unknown [id number] 2.16.840.1.864369.3.579.2. 1258 1999 Unknown [id number] 2.16.840.1.215135.3.579.2. 1258 1999 Unknown [id number] 2.16.840.1.447855.3.579.2. 1258 1999 Unknown [id number] 2.16.840.1.290095.3.579.2. 1258 1999 Unknown [id number] 2.16.840.1.348144.3.579.2. 1258 1999 Unknown [id number] 2.16.840.1.845494.3.579.2. 1258 1999 Unknown [id number] 2.16.840.1.971029.3.579.2. 1258 1999 Unknown [id number] 2.16.840.1.521283.3.579.2. 1259 1959 Unknown [id number] 1959 Unknown [id number] Social History Date Type Detail Facility Start: [...] [facility] Start: 09-13-2024 Sex Female (finding) [facility] Within the past 12 months we worried whether our food would run out before we got money to buy more. Never [facility] Clinical Notes 09-15-2022 to 12-04-2024 Sharon Hare [...] nursing note reviewed. Exam conducted with a hemodialysis lab technician present. Vitals: Estimated body mass index [...] Andrzej Hodge DO documented in this encounter [facility] 11-21-2024 History of Presen t illness Narrative [...] nursing note reviewed. Exam conducted with a hemodialysis lab technician present. Vitals: Estimated body mass index [...] Henrique Wang NP documented in this encounter [facility] 11-07-2024 History of Presen t illness Narrative [...] nursing note reviewed. Exam conducted with a hemodialysis lab technician present. Vitals: Estimated body mass index [...] Andrzej Hodge DO documented in this encounter [facility] 10-24-2024 History of Presen t illness Narrative [...] of: SHAUNA Rizvi documented in this encounter [facility] 10-24-2024 Miscellaneous Notes Formattin g of this note might be different from the original. I called pt and left a message about scheduling an apt in 4 weeks, I asked her to call me back documented in this encounter [facility] 10-24-2024 Telephone encount er Note I called pt and left a message about scheduling an apt in 4 weeks, I asked her to call me back [facility] 10-09-2024 History of Presen t [...] nursing note reviewed. Exam conducted with a hemodialysis lab technician present. Vitals: Estimated body mass index [...] was discussed/given. Pt having cervical length with [facility] in [place] coming up. Pt states its getting harder at work. No orders of the defined types were placed in this encounter. Follow Up: Patient is to return to office in 2 week for routine OB appointment. Documented by Sharon Hare LPN on behalf of: Andrzej Hodge DO documented in this encounter [facility] 09-14-2024 History of Presen t illness Narrative [...] Yes Have you been seen here at [facility] in a previous ? No Recent ER visits or hospitalizations? ER visit within the last month, was vomiting blood (was old it was just irritation from vomiting so much) Bring blood sugar log or meter with you today? (Please bring them with you for every visit at [facility]) N/A Flu vaccine (May-September)? 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 Patient does have ultrasound scheduled with us. Thank you for allowing me to participate in Alexandra Higgins . If there any questions please do not hesitate to contact us. Sincerely, LOS HOLLINS MD documented in this encounter [facility] 09-11-2024 History of Presen t illness Narrative [...] 2.0 cm. We will refer patient [facility] for further evaluation. Pt also complains of odor with discharge with progesterone, we will send in flagyl Documented by SHAUNA Rizvi on behalf of: SHAUNA Rizvi documented in this encounter [facility] 08-14-2024 History of Presen t illness Narrative [...] nursing note reviewed. Exam conducted with a hemodialysis lab technician present. Vitals: Estimated body mass index [...] Andrzej Hodge DO documented in this encounter [facility] 07-16-2024 History of Presen t illness Narrative [...] nursing note reviewed. Exam conducted with a hemodialysis lab technician present. Vitals: Estimated body mass index [...] of: SHAUNA Rizvi documented in this encounter [place] [address]-14-2024 History of Presen t illness Narrative Reason [...] or undercooked meat, and stay away from [facility]. Patient has also been advised to [...] Brianna Perry LPN documented in this encounter [facility] 05-31-2024 History of Presen t illness [...] of: SHAUNA Rizvi documented in this encounter [facility] 03-06-2024 History of Presen t illness Narrative Pt presents today for a pre-employment drug screen, BAT, Physical Exam, Audiogram, and PFT for [place]. Pt verified by photo ID. documented in this encounter [facility] 08-31-2023 History of Presen t illness [...] nursing note reviewed. Exam conducted with a hemodialysis lab technician present. Vitals: Estimated body mass index [...] Andrzej Hodge DO documented in this encounter [facility] 09-15-2022 Note EXAMINATION: US PREG TV [...] 07:41 [facility] 09-15-2022 Note OPERATIVE NOTE OPERATION DATE: 09/15/2022 PROCEDURE: Suction D AND C. PREOPERATIVE DIAGNOSIS: First trimester missed at 10 weeks. POSTOPERATIVE DIAGNOSIS: First trimester missed at 10 weeks. ANESTHESIA: General. SURGEON: Andrzej Hodge D.O. FLOOR GRINDER: None. FINDINGS: Products of conception. SPECIMEN: Products [...] products of conception were removed using an 9-Gibraltarian suction curette. Excellent hemostasis was noted. The patient tolerated the procedure well. Sponge, lap, and needle counts were correct x 2. All instruments were then removed from the patient's vagina. The patient was taken to the Recovery Room in stable condition. ?? [facility] Evaluation note Diagnosis Third trimester state, incidental [...] or unspecified fetus documented in this encounter [facility]* Diagnosis Short cervix affecting with delivery- Primary Cervical shortening, delivered, with or without mention of antepartum condition [facility] Diagnosis Second trimester state, [...] encounter [facility] HealthcareInstructionsNot on filedocumented in this encounterProMediks Health SystemInstructionsNot on filedocumented in this encounterProB[facility] SystemInstructionsNot on filedocumented in this encounterPro[facility] SystemInstructionsNot on filedocumented in this encounterMarion [facility] Summary Purpose Family History No [...] section and content) DATE CREATED AUTHOR 10/12/2022 [facility] DATE CREATED AUTHOR AUTHOR'S ORGANIZ ATION 12/08/2022 [facility] DATE CREATED AUTHOR AUTHOR'S ORGANIZ ATION 09/16/2024 [facility] DATE CREATED AUTHOR AUTHOR'S ORGANIZ ATION 10/26/2024 [facility] DATE CREATED AUTHOR AUTHOR'S ORGANIZ ATION 11/27/2024 [facility] DATE CREATED AUTHOR AUTHOR'S ORGANIZ ATION 12/05/2024 [facility] dical Specialists EPIC Reason for Visit [...] BE BASED ON THE PRIMARY CLINICAL RECORDS. [employer] [facility]. provides no warranty or guarantee of the accuracy or completeness of information in this document.
== END 2024-12-11 19:36 | disposition home or self-care (01) ==
LOC: LAB 19:35
PROVIDERS: Visit Provider Obstetrics & Gynecology
DX: Z34.93 Encounter for supervision of normal pregnancy, unspecified, third trimester (principal); Z3A.35 35 weeks gestation of pregnancy
CPT/HCPCS: 87081

== ENCOUNTER 2024-12-19 22:50 | Observation (INO) | payer MEDICAID, SELFPAY ==
--- OUTSIDE RECORDS SUMMARY | 2024-12-11 14:30 | XMS_ITS | Encounter Summary ---
Author Organization [facility] Address [address] [place] [address] Care Team Providers Care Chef Teacher Name Role Phone Unavailable Primary Care Provider Unavailabl e Encounter Details Date Type Department Care Team (Late st Contact Info) Description 12/11/2024 2:30 PM EDT Routine [facility] [address] [place] [phone] Andrzej Hodge, DO [address], [place] [address] 35 weeks gestation of ; Third trimester [...] this encounter Progress Notes * Sharon Hare, REFERENCE SERVICES HEAD - 12/11/2024 2:30 PM EDT Reason for [...] nursing note reviewed. Exam conducted with a trim crew supervisor present. Vitals: Estimated body mass index [...] documented in this encounter Plan of Treatment Upcoming Encounters Date Type Department Care Team (Late st Contact Info) Description 12/20/2024 9:50 AM EDT Routine [facility] [address] [place] [phone] Amy Abebe PA [address] [place], [place] [id number] Scheduled Orders Name Type Priority Associated Diagnoses [...] - Positive Urine 12/11/2024 3:09 PM EDT Andrzej Hodge DO POINT OF CARE TEST ENTER/EDIT OR DERABLES Final Result documented in this encounter Visit Diagnoses Diagnosis 35 weeks gestation of Third trimester state, incidental documented in this encounter
--- OUTSIDE RECORDS SUMMARY | 2024-12-19 22:52 | XMS_ITS | Clinical Summary ---
Author Organization [facility] [employer] [facility] tem Address [id number] [address] 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 Active progesterone (PROMETRIUM) 200 mg capsule Take 1 capsule (200 mg total) by mouth in the morning. Active docusate sodium (COLACE) 100 mg capsule Take 1 capsule (100 mg total) by mouth in the morning and 1 capsule (100 mg total) before bedtime. Active magnesium oxide (MAGOX) 400 mg tablet Take 1 tablet (400 mg total) by mouth in the morning. Active [id number] AC-DHA ORAL Take by mouth. Active Active Problems Problem Noted Date Diagnosed Date Short cervix affecting with delivery 0 09/14/2024 Estimated Date of Delivery Comme nts Yes 01/09/2025 Based on last me nstrual period of 04/04/2024 Encounters Date Type Department Care Team Description 11/22/2024 Travel 10/24/2024 Telephone Maternal- Medicine at [facility] [address] [place] [address] Valerie Ramirez 10/23/2024 1:51 PM EDT - 10/23/2024 11:59 PM EDT Hospital Encounter [facility] - Ultrasound [address] [place] [phone] Short cervix affecting ; Encounter for repeat ultrasound of pyelectasis, antepartum, single or unspecified fetus Discharge Disposition: Home 10/21/2024 Travel from Last 3 Months Family History Medical History Relation Name Comments Hyperlipidemia Father Hypertension Father Hyperlipidemia Maternal Grandfather Hypertension Maternal Grandfather Relation Name Status Comments Father Maternal Grandfather Social History Tobacco Use Types Packs/Day Years Used Date Smoking Tobacco: Never Tobacco Cessation:Counseling Given: Not Answered Alcohol Use Standard Drinks/Week Comments Never 0 (1 standard drink = 0.6 oz pur e alcohol) Hunger Screening Answer Date Recorded Within the past 12 months we worried whether our food would run out before we got money to buy more. Never True 09/14/2024 Within the past 12 months th e food we bought just didn't last and we didn't have money to get more. Never True 09/14/2024 Estimated Date of Delivery Comme nts Yes 01/09/2025 Based on last me nstrual period of 04/04/2024 Sex and Gender Information Value Date Recorded Sex Assigned at Not on file Legal Sex Female 8:14 AM EST Gender Identity Not on file Sexual Orientation Not on file Last Filed Vital Signs Vital Sign Reading Time Taken Comments Blood Pressure 97/59 09/14/2024 10:29 AM EST Pulse 80 09/14/2024 10:29 AM EST Temperature - - Respiratory Rate - - Oxygen Saturation - - Inhaled Oxygen Concentration - - Weight 82.6 kg (182 lb) 09/14/2024 10:29 AM EST Height 160 cm (5' 3 ) 09/14/2024 10:29 AM EST Body Mass Index 32.24 09/14/2024 10:29 AM EST Plan of Treatment Health Maintenance Due Date Last Done Comments Depression Screening 2011 Adult BMI Follow Up Plan 2017 DTaP,Tdap and Td Vaccines (1 - Tdap) 2018 Influenza Vaccine 03/25/2025 Adult BMI Screening 09/14/2025 09/14/2024 Tobacco Screening 09/14/2025 09/14/2024 Pap Smear 07/16/2027 07/16/2024 Medical Devices Not on file Procedures Procedure Name Priority Date/Time Associated Diagnosis Comments [facility] OB FOLLOW-UP, 1 FETUS Routine 11/22/2024 3:37 PM EDT Obesity in , antepartum US MFM OB FOLLOW-UP, 1 FETUS Routine 10/23/2024 3:35 PM EDT Short cervix affecting Encounter for repeat ultrasound of pyelectasis, antepartum, single or unspecified fetus from Last 3 Months Results * US MFM OB FOLLOW-UP, 1 FETUS (11/22/2024 3:37 PM EDT) Only the most recent of2 resultswithin the time period is included. Anatomical Region Laterality Modality OB-THREAD GRINDER Ultrasound 11/22/2024 3:20 PM EDT Narrative 11/22/2024 3:54 PM EDT NAME: SCOTT QUIROS : 2000 SEX: F Accession Number: [id number] ORDERING PHYSICIAN: CORA LOUISE REFERRING PHYSICIAN: TERESITA ARTHUR Coding ----- --------- Procedures 05202: Follow-up Ultrasound, per fetus Indication ----- --------- History of prior with delivery , Supervision of high risk - left pyelectasis , Obesity in History ----- --------- OB History 3. Para 1 Children born living <37w 1. Miscarriages 1 L1 Current ----- --------- Cell free DNA Low Risk analysis Maternal Assessment ----- --------- Physical Exam Height 163 cm, 5 ft 4 in. Weight 84 kg, 186 lb. Initial weight 84 kg, 186 lb. BMI 31.93 kg/m . Initial BMI 31.93 kg/m . Weight gain 0 kg, 0 lb Method ----- --------- Transabdominal ultrasound examination ----- --------- [place] . Number of fetuses: 1 Dating ----- --------- LMP on: 04/04/2024 GA by LMP 33 w + 1 d FERN by LMP: 01/09/2025 Previous Ultrasound on: 05/22/2024 Type of prior assessment: GA GA at prior assessment date 6 w + 5 d GA by previous U/S 33 w + 0 d FERN by previous Ultrasound: 01/10/2025 Ultrasound examination on: 11/22/2024 GA by U/S based upon: AC, BPD, Femur, HC GA by U/S 33 w + 2 d FERN by U/S: 01/08/2025 Assigned: based on the LMP, selected on 09/14/2024 Assigned GA 33 w + 1 d Assigned FERN: 01/09/2025 General Evaluation ----- --------- Cardiac activity Present. FHR 161 bpm. Presentation: cephalic Placenta: Placental site: anterior, away from cervical os Umbilical cord: Cord vessels: 3 vessel cord. Insertion site: documented previously Amniotic fluid: Amount of AF: normal amount. MVP 5.7 cm Biometry ----- --------- Standard BPD 86.5 mm 34w 6d 89% Hadlock OFD 100.7 mm 32w 4d 35% Mckenzie HC 298.1 mm 33w 0d 13% Hadlock AC 291.3 mm 33w 1d 51% Hadlock Femur 61.6 mm 32w 0d 12% Hadlock Humerus 54.2 mm 31w 4d 20% Mckenzie HC / AC 1.02 EFW 2,082 g 35% Hadlock EFW (lb) 4 lb EFW (oz) 9 oz EFW by: Hadlock ([id number]) Extended Tibia 57.1 mm 33w 3d 73% Mckenzie Head / Face / Neck Cephalic index 0.86 94% Nicolaides Extremities / Bony Struc FL / BPD 0.71 FL / HC 0.21 FL / AC 0.21 Other Structures FHR 161 bpm Anatomy ----- --------- The following structures appear normal: Head/Neck: Cranium. Cavum septi pellucidi. Heart/Thorax: 4-chamber view. Diaphragm. Abdomen: Stomach. Kidneys. Bladder. Maternal Structures ----- --------- Uterus Visualized Cervix Suboptimal Right Ovary Not visualized Left Ovary Not visualized Cul de Sac Suboptimal Impression ----- --------- Single viable intrauterine with EFW measuring at the 35%. AC measures at the 51%. Previously noted pyelectasis of the left kidney measures within normal limits for the gestational age on today's exam. Amniotic fluid MVP measures 5.7 cm. Recommendations ----- --------- Please see [facility] recommendations from prior clinical and/or ultrasound report documentation. Subsequent follow up or other follow up as clinically determined by primary OB provider unless otherwise specified by [facility]. Results forwarded to ordering provider so they can follow up with the patient as necessary. Procedure Note Boris Torres MD - 11/22/2024 NAME: SCOTT QUIROS : 2000 SEX: F Accession Number: [id number] ORDERING PHYSICIAN: CORA LOUISE REFERRING PHYSICIAN: TERESITA ARTHUR Coding ----- --------- Procedures 98365: Follow-up Ultrasound, per fetus Indication ----- --------- History of prior with delivery , Supervision of [facility] - left pyelectasis , Obesity in History ----- --------- OB History 3. Para 1 Children born living <37w 1. Miscarriages 1 L1 Current ----- --------- Cell free DNA Low Risk analysis Maternal Assessment ----- --------- Physical Exam Height 163 cm, 5 ft 4 in. Weight 84 kg, 186 lb. Initialweight 84 kg, 186 lb. BMI 31.93 kg/m . Initial BMI 31.93 kg/m . Weight gain 0 kg, 0 lb Method ----- --------- Transabdominal ultrasound examination ----- --------- [place] . Number of fetuses: 1 Dating ----- --------- LMP on: 04/04/2024 GA by LMP 33 w + 1 d FERN by LMP: 01/09/2025 Previous Ultrasound on: 05/22/2024 Type of prior assessment: GA GA at prior assessment date 6 w + 5 d GA by previous U/S 33 w + 0 d FERN by previous Ultrasound: 01/10/2025 Ultrasound examination on: 11/22/2024 GA by U/S based upon: AC, BPD, Femur, HC GA by U/S 33 w + 2 d FERN by U/S: 01/08/2025 Assigned: based on the LMP, selected on 09/14/2024 Assigned GA 33 w + 1 d Assigned FERN: 01/09/2025 General Evaluation ----- --------- Cardiac activity Present. FHR 161 bpm. Presentation: cephalic Placenta: Placental site: anterior, away from cervical os Umbilical cord: Cord vessels: 3 vessel cord. Insertion site: documentedpreviously Amniotic fluid: Amount of AF: normal amount. MVP 5.7 cm Biometry ----- --------- Standard BPD 86.5 mm 34w 6d 89% Hadlock OFD 100.7 mm 32w 4d 35% Mckenzie HC 298.1 mm 33w 0d 13% Hadlock AC 291.3 mm 33w 1d 51% Hadlock Femur 61.6 mm 32w 0d 12% Hadlock Humerus 54.2 mm 31w 4d 20% Mckenzie HC / AC 1.02 EFW 2,082 g 35% Hadlock EFW (lb) 4 lb EFW (oz) 9 oz EFW by: Hadlock ([id number]) Extended Tibia 57.1 mm 33w 3d 73% Mckenzie Head / Face / Neck Cephalic index 0.86 94% Nicolaides Extremities / Bony Struc FL / BPD 0.71 FL / HC 0.21 FL / AC 0.21 Other Structures FHR 161 bpm Anatomy ----- --------- The following structures appear normal: Head/Neck: Cranium. Cavum septi pellucidi. Heart/Thorax: 4-chamber view. Diaphragm. Abdomen: Stomach. Kidneys. Bladder. Maternal Structures ----- --------- Uterus Visualized Cervix Suboptimal Right Ovary Not visualized Left Ovary Not visualized Cul de Sac Suboptimal Impression ----- --------- Single viable intrauterine with EFW measuring at the 35%. FetalAC measures at the 51%. Previously noted pyelectasis of the left kidney measures withinnormal limits for the gestational age on today's exam. Amniotic fluid MVP measures 5.7 cm. Recommendations ----- --------- Please see [facility] recommendations from prior clinical and/or ultrasoundreport documentation. Subsequent follow up or other follow up as clinically determined byprimary OB provider unless otherwise specified by [facility]. Results forwarded to ordering provider so they can follow up with thepatient as necessary. Coar Louise MD [facility] ORDERABLES Final Result from Last 3 Months Insurance [facility]
--- OUTSIDE RECORDS SUMMARY | 2024-12-19 22:52 | XMS_ITS | Encounter Summary ---
Author Organization [facility] Address [address] [place] [address] Care Team Providers Care Phlebotomy Services Technician Name Role Phone Unavailable Primary Care Provider Unavailabl e Encounter Details Date Type Department Care Team (Late st Contact Info) Description 07/26/2023 Clinisync Result Encounter [facility] External Department Unsolicited Teresita Hodge DO [address] Ryder [place], [facility] Social History Tobacco Use Types Packs/Day Years Used Date Smoking Tobacco: Never Alcohol Use Standard Drinks/Week Comments Never 0 (1 standard drink = 0.6 oz pur e alcohol) caffeine: none Comments Yes Sex and Gender Information Value Date Recorded Sex Assigned at Not on file Legal Sex Female 7:00 PM EDT Gender Identity Not on file Sexual Orientation Not on file COVID-19 Exposure Response Date Recorded In the last 10 days, have yo u been in contact with someone who was confirmed or suspected to have Coronavirus/COVID-19? No / Unsure 06/26/2023 6:03 PM EST documented as of this encounter Plan of Treatment Upcoming Encounters Date Type Department Care Team (Late st Contact Info) Description 12/20/2024 9:50 AM EDT Routine [facility] [address] [place] [phone] Amy Abebe PA [address] [place] [address] (work) documented as of this encounter Procedures Procedure Name Priority Date/Time Associated Diagnosis Comments US OB FOLLOW UP 07/26/2023 2:44 PM EST documented in this encounter Results * US OB FOLLOW UP (07/26/2023 2:44 PM EST) Anatomical Region Laterality Modality Radiographic Priya ging 07/26/2023 2:44 PM EST Narrative 07/26/2023 2:46 [place] [address] Ultrasound Report Signed Patient: ALEXANDRA HIGGINS MR#: [id number] : 2000 Acct:[id number] Age/Sex: 23 / F ADM Date: 07/26/23 Loc: US Attending Dr: Teresita Hodge D.O. Ordering Physician: Teresita Hodge D.O. Date of Service: 07/26/23 Procedure(s): US OB follow up Accession Number(s): [id number] cc: Teresita Hodge D.O.; Physician,Non-Staff Viri The [address] [address] Patient Name: ALEXANDRA HIGGINS MRN: [id number] date: 2000 Sex: F Assigned Patient Location: Current Patient Location: Accession/Order Number: [id number] Exam Date: 07/26/2023 12:55 Report Date: 07/26/2023 14:44 At the request of: TERESITA HODGE Procedure: US OB follow up EXAMINATION: US OB follow up HISTORY: SV CARDIAC OUTFLOW TRACTS COMPARISON: 06/27/2023 FINDINGS: position: Breech presentation, longitudinal lie Heart rate: 157 bpm Normal anatomy: RVOT, LVOT US/US OB follow up IMPRESSION: Normal ventricular outflow tracts Electronically authenticated by: PIPPA ORTEGA Date: 07/26/2023 14:44 Dictated By: Pippa Ortega M.D. Signed By: 07/26/23 1446 DD/ 43 TD/TT: Doctor Of Veterinary Medicine: Procedure Note Radiology, Radiologist, MD - 07/26/2023 [place] [address] Ultrasound Report Signed Patient: ALEXANDRA HIGGINS DMR#: [id number] : 2000Acct:[id number] Age/Sex: 23 / FADM Date: 07/26/23 Loc: US Attending Dr: Teresita Hodge D.O. Ordering Physician: Teresita Hodge D.O. Date of Service: 07/26/23 Procedure(s): US OB follow up Accession Number(s): [id number] cc: Teresita Hodge D.O.; Physician,Non-Staff [facility] [place] [id number] Patient Name: ALEXANDRA HIGGINS MRN: [id number] date: 2000 Sex: F Assigned Patient Location: US Current Patient Location: US Accession/Order Number: [id number] Exam Date: 07/26/2023 12:55 Report Date: 07/26/2023 14:44 At the request of: TERESITA HODGE Procedure: US OB follow up EXAMINATION: US OB follow up HISTORY: SV CARDIAC OUTFLOW TRACTS COMPARISON: 06/27/2023 FINDINGS: position: Breech presentation, longitudinal lie Heart rate: 157 bpm Normal anatomy: RVOT, LVOT US/US OB follow up IMPRESSION: Normal ventricular outflow tracts Electronically authenticated by: PIPPA ORTEGA Date: 07/26/2023 14:44 Dictated By: Pippa Ortega M.D. Signed By:07/26/23 1446 DD/ 1444 TD/TT: Doctor Of Veterinary Medicine: Teresita Hodge DO IMG XR PROCEDURES Final Result documented in this encounter Visit Diagnoses Not on filedocumented in this encounter
--- OUTSIDE RECORDS SUMMARY | 2024-12-19 22:53 | XMS_ITS | Encounter Summary ---
Author Organization [facility] Address [address] [place] [address] Care Team Providers Care Senior Pl Sql Developer Name Role Phone Unavailable Primary Care Provider Unavailabl e Encounter Details Date Type Department Care Team (Late st Contact Info) Description 06/07/2024 Abstract [facility] OB [address] [place] [address] Andrzej Hodge DO [address] Ryder [place], [facility] Social History Tobacco Use Types Packs/Day Years [...] on file documented as of this encounter Plan of Treatment Upcoming Encounters Date Type Department Care Team (Late st Contact Info) Description 12/20/2024 9:50 AM EDT Routine [facility] OB [address] [place] [address] Amy Abebe PA [address] [place] [address] documented as of this encounter Visit Diagnoses Not on filedocumented in this encounter
--- OUTSIDE RECORDS SUMMARY | 2024-12-19 22:53 | XMS_ITS | Encounter Summary ---
Author Organization [facility] Address [address] [place] [address] Care Team Providers Care Time Piece Repairer Name Role Phone Unavailable Primary Care Provider Unavailabl e Encounter Details Date Type Department Care Team (Late st Contact Info) Description 08/15/2024 Abstract [facility] OB [address] [place] [address] Andrzej Hodge DO [address] [place]der [place], [facility]11 Social History Tobacco Use [...] Description 12/20/2024 9:50 AM EDT Routine [facility] OB [address] [place] [address] Amy Abebe PA [address] [place] [address] documented as of this encounter Visit Diagnoses Not on filedocumented in this encounter
--- OUTSIDE RECORDS SUMMARY | 2024-12-19 22:53 | XMS_ITS | Encounter Summary ---
Author Organization [facility] Address [address] [place] [address] Care Team Providers Care Pharmaceutical Sales Specialist Name Role Phone Unavailable Primary Care Provider Unavailabl e Encounter Details Date Type Department Care Team (Late st Contact Info) Description 10/19/2023 Abstract [facility] OB [address] [facility] [place] [address] Andrzej Hodge DO [address] [place] [address] Dr [place] [place], [place] [id number] Social History Tobacco Use Types Packs/Day Years [...] AM EDT Routine [facility] [address] [facility] [place] [address] Amy Abebe PA [address] [place], [place] [phone] documented as of this encounter Visit Diagnoses Not on filedocumented in this encounter
--- OUTSIDE RECORDS SUMMARY | 2024-12-19 22:53 | XMS_ITS | Encounter Summary ---
Author Organization [facility] Address [address] [place] [address] Care Team Providers Care Showcase Trimmer Name Role Phone Unavailable Primary Care Provider Unavailabl e Encounter Details Date Type Department Care Team (Late st Contact Info) Description 08/02/2024 Orders Only [facility] OB [address] [place] [address] Aaliyah Lunsford LPN [address] [place] [id number] Social History Tobacco Use Types Packs/Day Years [...] [facility] [address] [place] [address] Amy Abebe PA [address] [facility] [address] [address] documented as of this encounter Procedures Procedure Name Priority Date/Time Associated Diagnosis Comments PAP SMEAR Routine 07/16/2024 12:00 AM EST documented in this encounter Results * Pap Smear (07/16/2024 12:00 AM EST) Swab Cervical swab / Unknown us Amy [facility] ORDERABLES Final Re sult EXTERNAL LAB documented in this encounter Visit Diagnoses Not on filedocumented in this encounter
--- OUTSIDE RECORDS SUMMARY | 2024-12-19 22:53 | XMS_ITS | Encounter Summary ---
Author Organization [facility] Address [address] [place] [address] Care Team Providers Care Specimen Technician Name Role Phone Unavailable Primary Care Provider Unavailabl e Encounter Details Date Type Department Care Team (Late st Contact Info) Description 09/30/2023 Clinisync Result Encounter [facility] External Department Unsolicited Teresita Hodge DO [address] [place] [address] Social History Tobacco Use Types Packs/Day Years [...] AM EDT Routine [facility] [address] [facility] [place] [phone] Amy Abebe PA [address] [place] [address] documented as of this encounter Procedures Procedure Name Priority Date/Time Associated Diagnosis Comments US OB GROWTH 09/30/2023 9:42 AM EST documented in this encounter Results * US OB GROWTH (09/30/2023 9:42 AM EST) Anatomical Region Laterality Modality Other 09/30/2023 9:42 AM EST Narrative 09/30/2023 9:45 AM EST [address] [address] Ultrasound Report Signed Patient: ALEXANDRA HIGGINS MR#: [id number] : 2000 Acct:[id number] Age/Sex: 23 / F ADM Date: 09/30/23 Loc: [facility] Attending Dr: Teresita Hodge D.O. Ordering Physician: Teresita Hodge D.O. Date of Service: 09/30/23 Procedure(s): US OB growth Accession Number(s): [id number] cc: Teresita Hodge D.O.; Physician,Non-Staff MRaad The [address] [address] Patient Name: ALEXANDRA HIGGINS MRN: [id number] date: 2000 Sex: F Assigned Patient Location: [facility] Current Patient Location: [facility] Accession/Order Number: [id number] Exam Date: 09/30/2023 09:00 Report Date: 09/30/2023 09:42 At the request of: TERESITA HODGE Procedure: US OB growth EXAMINATION: US OB growth HISTORY: LGA, VAGINAL DISCHARGE COMPARISON: Ultrasound OB follow-up 07/26/2023, ultrasound OB anatomy 06/27/2023 FINDINGS: Heart Rate: 156.0 bpm Number: 1.0 Position: CEPHALIC Amniotic Fluid Volume: 11.8 cm Maximum Vertical Pocket: 4.1 cm BIOMETRY: BPD: 8.5 cm cm; 34 weeks 2 days; 54% HC: 30.4 cmcm; 33 weeks 6 days ; 11% AC: 30.3 cm cm; 34 weeks 2 days; 59% FL: 6.2 cm cm; 32 weeks 0 days; 4% EFW: 2236.6 grams; 29% FL/AC: 20.4 FL/BPD: 72.5 HC/AC: 1.0 GESTATIONAL AGE: Age by EDC: 34 weeks 1 days FERN by EDC: 11/10/2023 Age by US: 33 weeks 4 days FERN by US: 11/14/2023 US/US OB growth IMPRESSION: 1. Single live intrauterine with growth detailed above. 2. Femur length is at 4th percentile. Electronically authenticated by: ARIAS JADE Date: 09/30/2023 09:42 Dictated By: Arias Jade M.D. Signed By: 09/30/2345 DD/ 1 TD/TT: Web Search Evaluator: Procedure Note Radiology, Radiologist, MD - 09/30/2023 [place] [address] Ultrasound Report Signed Patient: ALEXANDRA HIGGINS DMR#: [id number] : 2000Acct:[id number] Age/Sex: 23 FADM Date: 09/30/23 Loc: [facility] Attending Dr: Teresita Hodge D.O. Ordering Physician: Teresita Hodge D.O. Date of Service: 09/30/23 Procedure(s): US OB growth Accession Number(s): [id number] cc: Teresita Hodge D.O.; Physician,Non-Staff Viri The [place] [id number] Patient Name: ALEXANDRA HIGGINS MRN: [facility]:[id number] date: 2000 Sex: F Assigned Patient Location: [facility] Current Patient Location: [facility] Accession/Order Number: [id number] Exam Date: 09/30/2023 09:00 Report Date: 09/30/2023 09:42 At the request of: TERESITA HODGE Procedure: US OB growth EXAMINATION: US OB growth HISTORY: LGA, VAGINAL DISCHARGE COMPARISON: Ultrasound OB follow-up 07/26/2023, ultrasound OB doootxj45/4/2023 FINDINGS: Heart Rate: 156.0 bpm Number: 1.0 Position: CEPHALIC Amniotic Fluid Volume: 11.8 cm Maximum Vertical Pocket: 4.1 cm BIOMETRY: BPD: 8.5 cm cm; 34 weeks 2 days; 54% HC: 30.4 cmcm; 33 weeks 6 days ; 11% AC: 30.3 cm cm; 34 weeks 2 days; 59% FL: 6.2 cm cm; 32 weeks 0 days; 4% EFW: 2236.6 grams; 29% FL/AC: 20.4 FL/BPD: 72.5 HC/AC: 1.0 GESTATIONAL AGE: Age by EDC: 34 weeks 1 days FERN by EDC: 11/10/2023 Age by US: 33 weeks 4 days FERN by US: 11/14/2023 US/US OB growth IMPRESSION: 1. Single live intrauterine with growth detailed above. 2. Femur length is at 4th percentile. Electronically authenticated by: ARIAS JADE Date: 09/30/2023 09:42 Dictated By: Arias Jade M.D. Signed By:09/30/23 0945 DD/ 0942 TD/TT: Web Search Evaluator: us Teresita Hodge DO [facility] Final Result documented in this encounter Visit Diagnoses Not on filedocumented in this encounter
--- OUTSIDE RECORDS SUMMARY | 2024-12-19 22:53 | XMS_ITS | Encounter Summary ---
Author Organization [facility] Address [address] [place] [address] Care Team Providers Care Skein Yarn Dyer Name Role Phone Unavailable Primary Care Provider Unavailabl e Encounter Details Date Type Department Care Team (Late st Contact Info) Description 06/20/2024 Abstract [facility] OB [address] [facility] [place] [address] Andrzej Hodge DO [address] [facility] [address] [place], [facility]11 Social History Tobacco Use Types Packs/Day Years [...] AM EDT Routine [facility] OB [address] [place] [address] Amy Abebe PA [address] [facility] [place] [address] documented as of this encounter Visit Diagnoses Not on filedocumented in this encounter
--- OUTSIDE RECORDS SUMMARY | 2024-12-19 22:53 | XMS_ITS | Encounter Summary ---
Author Organization [facility] Address [address] [place] [address] Care Team Providers Care Technology Program Manager Name Role Phone Unavailable Primary Care Provider Unavailabl e Encounter Details Date Type Department Care Team (Late st Contact Info) Description 09/17/2024 Abstract [facility] OB [address] [facility] [place] [address] Andrzej Hodge DO [address] [facility] [address] [place], [facility]11 Social History Tobacco Use Types Packs/Day Years [...] Description 12/20/2024 9:50 AM EDT Routine [facility] OB [address] [facility] [place] [address] Amy Abebe PA [address] [facility] [place] [address] documented as of this encounter Visit Diagnoses Not on filedocumented in this encounter
--- OUTSIDE RECORDS SUMMARY | 2024-12-19 22:53 | XMS_ITS | Encounter Summary ---
Author Organization [facility] Address [address] [place] [address] Care Team Providers Care Business Area Manager Name Role Phone Unavailable Primary Care Provider Unavailabl e Encounter Details Date Type Department Care Team (Late st Contact Info) Description 06/27/2023 Clinisync Result Encounter [facility] External Department Unsolicited Teresita Hodge DO [address] [facility] [address] [place]der Garcia, [facility]11 Social History Tobacco Use Types Packs/Day Years [...] AM EDT Routine [facility] OB [address] [facility] [place] [phone] Amy Abebe PA [address] [facility] [place] [address] (work) documented as of this encounter Procedures Procedure Name Priority Date/Time Associated Diagnosis Comments US OB TRANSVAGINAL 06/27/2023 3: 13 PM EST documented in this encounter Results * US OB TRANSVAGINAL (06/27/2023 3:13 PM EST) Anatomical Region Laterality Modality Other 06/27/2023 3:13 PM EST Narrative 06/27/2023 3:13 PM EST [address] [address] Ultrasound Report Signed Patient: ALEXANDRA HIGGINS MR#: [id number] : 2000 Acct:[id number] Age/Sex: 22 / F ADM Date: 06/27/23 Loc: US Attending Dr: Teresita Hodge D.O. Ordering Physician: Teresita Hodge D.O. Date of Service: 06/27/23 Procedure(s): US OB transvaginal Accession Number(s): [id number] cc: Teresita Hodge D.O.; Physician,Non-Staff MRaad [address] [address] Patient Name: ALEXANDRA HIGGINS MRN: [id number] date: 2000 Sex: F Assigned Patient Location: US Current Patient Location: US Accession/Order Number: [id number] Exam Date: 06/27/2023 13:07 Report Date: 06/27/2023 15:13 At the request of: TERESITA HODGE Procedure: US OB transvaginal EXAMINATION: US OB anatomy, US OB transvaginal HISTORY: ENCOUNTER FOR ANATOMIC SURVEY Z36.89 COMPARISON: Ultrasound OB < 14 weeks 05/16/2023 TECHNIQUE: Transabdominal sonographic examination was performed for obstetrical and evaluation. FINDINGS: Number: 1 Heart Rate: 160.0 bpm H.B. /min Amniotic Fluid Volume: Subjectively normal Placental Location: ANTERIOR with lower margin 2.8 cm from internal os. Venous pond within placenta, likely incidental. Cervix Length: 4.4 cm, closed. ANATOMY: Normal Structures -cerebellum, choroid plexus, cisterna magna, lateral cerebral ventricles, orbits, midline falx, hard palate, four-chamber heart, stomach, kidneys, bladder, umbilical cord insertion into abdomen, three-vessel cord, cervical spine, thoracic spine, lumbar spine, sacral spine, right upper extremity, left upper extremity, right lower extremity, left lower extremity. SUBOPTIMALLY SEEN: Cardiac outflow tracts due to position. ABNORMALITIES: None BIOMETRY: BPD: 5.0 cm 21 weeks 2 days ; 76% HC: 18.9 cm 21 weeks 1 days; 70% AC: 16.6 cm 21 weeks 4 days; 78% FL: 3.5 cm 21 weeks 1 days ; 64% EFW:421.6 grams; 87% FL/AC: 21.3 FL/BPD: 70.4 HC/AC: 1.1 GESTATIONAL AGE: Age by EDC: 20 weeks 4 days FERN by EDC: 11/10/2023 Age by current US: 21 weeks 2 days FERN by current US: 11/07/2023 US/US OB transvaginal IMPRESSION: 1. Single live intrauterine with growth detailed above. 2. Suboptimal visualization of the cardiac outflow tracts due to position. 3. Anterior low-lying placenta. Electronically authenticated by: ARIAS JADE Date: 06/27/2023 15:13 Dictated By: Arias Jade M.D. Signed By: 06/27/236 DD/ 12 TD/TT: Animal Care Attendant: Procedure Note Radiology, Radiologist, MD - 06/27/2023 [place] [address] Ultrasound Report Signed Patient: ALEXANDRA HIGGINS [facility]#: [id number] : 2000Acct:[id number] Age/Sex: Date: 06/27/23 Loc: US Attending Dr: Teresita Hodge D.O. Ordering Physician: Teresita Hodge D.O. Date of Service: 06/27/23 Procedure(s): US OB transvaginal Accession Number(s): [id number] cc: Teresita Hodge D.O.; Physician,Non-Staff Viri The [place] [address] Patient Name: ALEXANDRA HIGGINS MRN: [id number] date: 2000 Sex: F Assigned Patient Location: US Current Patient Location: US Accession/Order Number: [id number] Exam Date: 06/27/2023 13:07 Report Date: 06/27/2023 15:13 At the request of: TERESITA HODGE Procedure: US OB transvaginal EXAMINATION: US OB anatomy, US OB transvaginal HISTORY: ENCOUNTER FOR ANATOMIC SURVEY Z36.89 COMPARISON: Ultrasound OB < 14 weeks 05/16/2023 TECHNIQUE: Transabdominal sonographic examination was performed for obstetrical and evaluation. FINDINGS: Number: 1 Heart Rate: 160.0 bpm H.B. /min Amniotic Fluid Volume: Subjectively normal Placental Location: ANTERIOR with lower margin 2.8 cm from internal os.Venous pond within placenta, likely incidental. Cervix Length: 4.4 cm, closed. ANATOMY: Normal Structures -cerebellum, choroid plexus, cisterna magna, lateral cerebral ventricles, orbits, midline falx, hard palate, four-chamberheart, stomach, kidneys, bladder, umbilical cord insertion into abdomen,three-vessel cord, cervical spine, thoracic spine, lumbar spine, sacral spine, rightupper extremity, left upper extremity, right lower extremity, left lowerextremity. SUBOPTIMALLY SEEN: Cardiac outflow tracts due to position. ABNORMALITIES: None BIOMETRY: BPD: 5.0 cm 21 weeks 2 days ; 76% HC: 18.9 cm 21 weeks 1 days; 70% AC: 16.6 cm 21 weeks 4 days; 78% FL: 3.5 cm 21 weeks 1 days ; 64% EFW:421.6 grams; 87% FL/AC: 21.3 FL/BPD: 70.4 HC/AC: 1.1 GESTATIONAL AGE: Age by EDC: 20 weeks 4 days FERN by EDC: 11/10/2023 Age by current US: 21 weeks 2 days FERN by current US: 11/07/2023 US/US OB transvaginal IMPRESSION: 1. Single live intrauterine with growth detailed above. 2. Suboptimal visualization of the cardiac outflow tracts due to position. 3. Anterior low-lying placenta. Electronically authenticated by: ARIAS JADE Date: 06/27/2023 15:13 Dictated By: Arias Jade M.D. Signed By:06/27/23 151 DD/ 12 TD/TT: Animal Care Attendant: us Teresita Hodge DO [facility] Final Result documented in this encounter Visit Diagnoses Not on filedocumented in this encounter
--- OUTSIDE RECORDS SUMMARY | 2024-12-19 22:53 | XMS_ITS | Encounter Summary ---
Author Organization [facility] Address [address] [place] [address] Care Team Providers Care Supervisor Microwave Name Role Phone Unavailable Primary Care Provider Unavailabl e Encounter Details Date Type Department Care Team (Late st Contact Info) Description 07/06/2024 Clinisync Result Encounter [facility] External Department Unsolicited Teresita Hodge DO [address] [facility] [address] [place], [facility]11 Social History Tobacco Use Types Packs/Day [...] AM EDT Routine [facility] OB [address] [facility] [place] [place] [phone] Amy Abebe PA [address] [place], [place] [address] documented as of this encounter Procedures Procedure Name Priority Date/Time Associated Diagnosis Comments US OB CERVICAL LENGTH 07/06/2024 7:56 AM EST documented in this encounter Results * US OB CERVICAL LENGTH (07/06/2024 7:56 AM EST) Anatomical Region Laterality Modality Other 07/06/2024 7:56 AM EST Narrative 07/06/2024 7:58 [place] [address] Ultrasound Report Signed Patient: ALEXANDRA HIGGINS MR#: [id number] : 2000 Acct:[id number] Age/Sex: 23 / F ADM Date: 07/06/24 Loc: US Attending Dr: Teresita Hodge D.O. Ordering Physician: Teresita Hodge D.O. Date of Service: 07/06/24 Procedure(s): US OB cervical length Accession Number(s): [id number] cc: Teresita Hodge D.O.; Physician,Non-Staff M.Beatrice The [place] [address] Patient Name: ALEXANDRA HIGGINS MRN: [id number] date: 2000 Sex: F Assigned Patient Location: Current Patient Location: Accession/Order Number: [id number] Exam Date: 07/06/2024 07:30 Report Date: 07/06/2024 07:56 At the request of: TERESITA HODGE Procedure: US OB cervical length EXAMINATION: US OB cervical length HISTORY: Cervical length, Z36.86 COMPARISON: 06/22/2024 FINDINGS: position: Cephalic Heart rate: 153 beats minute Cervix: 4 cm, closed US/US OB cervical length IMPRESSION: The cervix measures 4 cm in length Electronically authenticated by: PIPPA ORTEGA Date: 07/06/2024 07:56 Dictated By: Pippa Ortega M.D. Signed By: 07/06/24 0758 DD/ 0756 TD/TT: Mutton Puncher: Procedure Note Radiology, Radiologist, MD - 07/06/2024 The [place] [id number] Ultrasound Report Signed Patient: ALEXNADRA HIGGINS DMR#: [id number] : 2000Acct:[id number] Age/Sex: 23 / FADM Date: 07/06/24 Loc: US Attending Dr: Teresita Hodge D.O. Ordering Physician: Teresita Hodge D.O. Date of Service: 07/06/24 Procedure(s): US OB cervical length Accession Number(s): [id number] cc: Teresita Hodge D.O.; Physician,Non-Staff Viri The [place] [id number] Patient Name: ALEXANDRA HIGGINS MRN: [id number] date: 2000 Sex: F Assigned Patient Location: US Current Patient Location: US Accession/Order Number: [id number] Exam Date: 07/06/2024 07:30 Report Date: 07/06/2024 07:56 At the request of: TERESITA HODGE Procedure: US OB cervical length EXAMINATION: US OB cervical length HISTORY: Cervical length, Z36.86 COMPARISON: 06/22/2024 FINDINGS: position: Cephalic Heart rate: 153 beats minute Cervix: 4 cm, closed US/US OB cervical length IMPRESSION: The cervix measures 4 cm in length Electronically authenticated by: PIPPA ORTEGA Date: 07/06/2024 07:56 Dictated By: Pippa Ortega M.D. Signed By:07/06/24 0758 DD/ 0756 TD/TT: Mutton Puncher: us Teresita Hodge DO [facility] Final Result documented in this encounter Visit Diagnoses Not on filedocumented in this encounter
--- OUTSIDE RECORDS SUMMARY | 2024-12-19 22:53 | XMS_ITS | Encounter Summary ---
Author Organization [facility] Address [address] [place] [address] Care Team Providers Care Wafer Line Worker Name Role Phone Unavailable Primary Care Provider Unavailabl e Encounter Details Date Type Department Care Team (Late st Contact Info) Description 05/22/2024 Abstract [facility] OB [address] [place] [address] Andrzej Hodge DO [address] [facility] [address] [place], [place] [address] Social History Tobacco Use Types Packs/Day Years Used Date Smoking Tobacco: Never Alcohol Use Standard Drinks/Week Comments Never 0 (1 standard drink = 0.6 oz pur e alcohol) caffeine: none Comments No Sex and Gender Information Value Date Recorded Sex Assigned at Not on file Legal Sex Female 7:00 PM EDT Gender Identity Not on file Sexual Orientation Not on file documented as of this encounter Plan of Treatment Upcoming Encounters Date Type Department Care Team (Late st Contact Info) Description 12/20/2024 9:50 AM EDT Routine [facility] OB [address] [facility] [place] [address] Amy Abebe PA [address] [facility] [address] [place], [place] [address] documented as of this encounter Visit Diagnoses Not on filedocumented in this encounter
--- OUTSIDE RECORDS SUMMARY | 2024-12-19 22:53 | XMS_ITS | Encounter Summary ---
Author Organization [facility] Address [address] [place] [address] Care Team Providers Care Industrial Painter Name Role Phone Unavailable Primary Care Provider Unavailabl e Encounter Details Date Type Department Care Team (Late st Contact Info) Description 06/07/2024 Abstract [facility] OB [address] [facility] [place] [address] Andrzej Hodge DO [address] [facility] [address] [place], [facility]11 Social History Tobacco Use Types Packs/Day [...] 12/20/2024 9:50 AM EDT Routine [facility] OB [address] [facility] [place] [address] Amy Abebe PA [address] [facility] [place] [address] documented as of this encounter Visit Diagnoses Not on filedocumented in this encounter
--- OUTSIDE RECORDS SUMMARY | 2024-12-19 22:53 | XMS_ITS | Encounter Summary ---
Author Organization [facility] Address [address] [place] [address] Care Team Providers Care Wood Mill Supervisor Name Role Phone Unavailable Primary Care Provider Unavailabl e Encounter Details Date Type Department Care Team (Late st Contact Info) Description 05/22/2024 Abstract [facility] OB [address] [facility] [place] [address] Andrzej Hodge DO [address] [facility] [address] [place], [place] [address] Social History Tobacco Use Types Packs/Day Years [...] AM EDT Routine [facility] OB [address] [facility] [place] [address] Amy Abebe PA [address] [facility] [address] [place], [place] [address] documented as of this encounter Visit Diagnoses Not on filedocumented in this encounter
--- OUTSIDE RECORDS SUMMARY | 2024-12-19 22:53 | XMS_ITS | Encounter Summary ---
Author Organization [facility] tem Address [id number] [address] [place] [address] Care Team Providers Care Naprapath Name Role Phone Unavailable Primary Care Provider Unavailabl e Encounter Details Date Type Department Care Team (Late st Contact Info) Description 09/13/2024 Orders Only Maternal- Medicine at [facility] [address] [place] [phone] Ref Prov, [place] [address] Social History Tobacco Use Types Packs/Day Years [...] as of this encounter Plan of Treatment Not on file documented as of this encounter Procedures Procedure Name Priority Date/Time Associated Diagnosis Comments FREE CELL DNA (NON-[place]) Routine 06/18/2024 3:13 PM EST documented in this encounter Results * Free Cell DNA (06/18/2024 3:13 PM EST) us Not In System Ref Prov LAB BLOOD ORDERABLES Stella l Result Performing Organization Address City/State/[facility] Co de Phone Number MANUALLY TRANSCRIBED RESULTS documented in this encounter Visit Diagnoses Not on filedocumented in this encounter
--- OUTSIDE RECORDS SUMMARY | 2024-12-19 22:53 | XMS_ITS | Encounter Summary ---
Author Organization [facility] Address [address] [place] [address] Care Team Providers Care Construction Technology Instructor Name Role Phone Unavailable Primary Care Provider Unavailabl e Encounter Details Date Type Department Care Team (Late st Contact Info) Description 07/04/2023 Clinisync Result Encounter [facility] External Department Unsolicited Teresita Hodge DO [address] [facility] [address] [place], [facility]11 Social History Tobacco Use Types Packs/Day [...] AM EDT Routine [facility] OB [address] [place] [address] Amy Abebe PA [address] [place] [address] (work) documented as of this encounter Procedures Procedure Name Priority Date/Time Associated Diagnosis Comments US OB CERVICAL LENGTH 07/04/2023 6:53 PM EST documented in this encounter Results * US OB CERVICAL LENGTH (07/04/2023 6:53 PM EST) Anatomical Region Laterality Modality Other 07/04/2023 6:53 PM EST Narrative 07/04/2023 6:56 [place] [address] Ultrasound Report Signed Patient: ALEXANDRA HIGGINS MR#: [id number] : 2000 Acct:[id number] Age/Sex: 22 / F ADM Date: 07/04/23 Loc: FBCO Attending Dr: Teresita Hodge D.O. Ordering Physician: Teresita Hodge D.O. Date of Service: 07/04/23 Procedure(s): US OB cervical length Accession Number(s): [id number] cc: Teresita Hodge D.O.; Physician,Non-Staff M.DConcetta The [place] [id number] Patient Name: ALEXANDRA HIGGINS MRN: [id number] date: 2000 Sex: F Assigned Patient Location: [facility] Current Patient Location: [facility] Accession/Order Number: [id number] Exam Date: 07/04/2023 17:45 Report Date: 07/04/2023 18:53 At the request of: TERESITA HODGE Procedure: US OB cervical length EXAM: US OB cervical length, US OB amniotic fluid vol 07/04/2023 3:50 PM PST, [id number], [id number] HISTORY: r/o srom. TECHNIQUE: Multiple longitudinal and transverse grayscale and color sonographic images of the intrauterine gestation and cervix were acquired. COMPARISON: OB ultrasound 06/27/2023. FINDINGS/IMPRESSION: Single live intrauterine gestation with normal heart rate of 152 bpm. Amniotic fluid index is within normal limits at 15.4 cm. Cervix is long and closed measuring of 4.37 cm. position is cephalic. Electronically authenticated by: CHIP SULLIVAN Date: 07/04/2023 18:53 Dictated By: Chip [place] Signed By: 07/04/231855 DD/ 52 TD/TT: Accountant Machine Processing: Procedure Note Radiology, Radiologist, MD - 07/04/2023 [place] [address] Ultrasound Report Signed Patient: ALEXANDRA HIGGINS DMR#: [id number] : 2000Acct:[id number] Age/Sex: 22 FADM Date: 07/04/23 Loc: FBCO Attending Dr: Teresita Hodge D.O. Ordering Physician: Teresita Hodge D.O. Date of Service: 07/04/23 Procedure(s): US OB cervical length Accession Number(s): [id number] cc: Teresita Hodge D.O.; Physician,Non-Staff M.DConcetta The [place] [address] Patient Name: ALEXANDRA HIGGINS MRN: [facility]:[id number] date: 2000 Sex: F Assigned Patient Location: [facility] Current Patient Location: [facility] Accession/Order Number: [id number] Exam Date: 07/04/2023 17:45 Report Date: 07/04/2023 18:53 At the request of: TERESITA HODGE Procedure: US OB cervical length EXAM: US OB cervical length, US OB amniotic fluid vol 07/04/2023 3:50 PMPST, [id number], [id number] HISTORY: r/o srom. TECHNIQUE: Multiple longitudinal and transverse grayscale and color sonographic images of the intrauterine gestation and cervix were acquired. COMPARISON: OB ultrasound 06/27/2023. FINDINGS/IMPRESSION: Single live intrauterine gestation with normal heart rate of 152bpm. Amniotic fluid index is within normal limits at 15.4 cm. Cervix is long and closed measuring of 4.37 cm. position is cephalic. Electronically authenticated by: CHIP SULLIVAN Date: 07/04/2023 18:53 Dictated By: Chip [place] Signed By:07/04/231855 DD/ 52 TD/TT: Accountant Machine Processing: us Teresita Hodge DO [facility] Final Result documented in this encounter Visit Diagnoses Not on filedocumented in this encounter
--- OUTSIDE RECORDS SUMMARY | 2024-12-19 22:53 | XMS_ITS | Encounter Summary ---
Author Organization [facility] Address [address] [place] [address] Care Team Providers Care Social Services Coordinator Name Role Phone Unavailable Primary Care Provider Unavailabl e Encounter Details Date Type Department Care Team (Late st Contact Info) Description 06/27/2023 Clinisync Result Encounter NOMS External Department Unsolicited Teresita Hodge DO [address] [facility] [address] [place], [facility]11 Social History Tobacco Use Types Packs/Day Years [...] AM EDT Routine [facility] BCP OB [address] [facility] [phone] Amy Abebe PA [address] [facility] [place] [address] (work) documented as of this encounter Procedures Procedure Name Priority Date/Time Associated Diagnosis Comments US OB ANATOMY 06/27/2023 3:13 PM EST documented in this encounter Results * US OB ANATOMY (06/27/2023 3:13 PM EST) Anatomical Region Laterality Modality Other 06/27/2023 3:13 PM EST Narrative 06/27/2023 3:13 [place] [address] Ultrasound Report Signed Patient: ALEXANDRA HIGGINS MR#: [id number] : 2000 Acct:[id number] Age/Sex: 22 / F ADM Date: 06/27/23 Loc: US Attending Dr: Teresita Hodge D.O. Ordering Physician: Teresita Hodge D.O. Date of Service: 06/27/23 Procedure(s): US OB anatomy Accession Number(s): [id number] cc: Teresita Hodge D.O.; Physician,Non-Staff M.DConcetta The [address] [address] Patient Name: ALEXANDRA HIGGINS MRN: [id number] date: 2000 Sex: F Assigned Patient Location: Current Patient Location: Accession/Order Number: [id number] Exam Date: 06/27/2023 13:07 Report Date: 06/27/2023 15:13 At the request of: TERESITA HODGE Procedure: US OB anatomy EXAMINATION: US OB anatomy, US OB transvaginal [...] FERN by current US: 11/07/2023 US/US OB anatomy IMPRESSION: 1. Single live intrauterine with growth detailed above. 2. Suboptimal visualization of the cardiac outflow tracts due to position. 3. Anterior low-lying placenta. Electronically authenticated by: ARIAS JADE Date: 06/27/2023 15:13 Dictated By: Arias Jade M.D. Signed By: 06/27/23 1516 DD/ 12 TD/TT: Compounding Scaler: Procedure Note Radiology, Radiologist, MD - 06/27/2023 [place] [address] Ultrasound Report Signed Patient: ALEXANDRA HIGGINS DMR#: [id number] : 2000Acct:[id number] Age/Sex: Date: 06/27/23 Loc: US Attending Dr: Teresita Hodge D.O. Ordering Physician: Teresita Hodge D.O. Date of Service: 06/27/23 Procedure(s): US OB anatomy Accession Number(s): [id number] cc: Teresita Hodge D.O.; Physician,Non-Staff Viri The [place] [id number] Patient Name: ALEXANDRA HIGGINS MRN: [id number] date: 2000 Sex: F Assigned Patient Location: US Current Patient Location: US Accession/Order Number: [id number] Exam Date: 06/27/2023 13:07 Report Date: 06/27/2023 15:13 At the request of: TERESITA HODGE Procedure: US OB anatomy EXAMINATION: US OB anatomy, US OB transvaginal [...] FERN by current US: 11/07/2023 US/US OB anatomy IMPRESSION: 1. Single live intrauterine with growth detailed above. 2. Suboptimal visualization of the cardiac outflow tracts due to position. 3. Anterior low-lying placenta. Electronically authenticated by: ARIAS JADE Date: 06/27/2023 15:13 Dictated By: Arias Jade M.D. Signed By:06/27/23 1516 DD/ 12 TD/TT: Compounding Scaler: us Teresita Hodge DO [facility] Final Result documented in this encounter Visit Diagnoses Not on filedocumented in this encounter
--- OUTSIDE RECORDS SUMMARY | 2024-12-19 22:53 | XMS_ITS | Encounter Summary ---
Author Organization [facility] Address [address] [place] [address] Care Team Providers Care Java Systems Analyst Name Role Phone Unavailable Primary Care Provider Unavailabl e Encounter Details Date Type Department Care Team (Late st Contact Info) Description 05/22/2024 Abstract [facility] B[facility] OB [address] [facility] [address] Andrzej Hodge DO [address] [facility] [address] [place] [place], [place] [address] Social History Tobacco Use Types Packs/Day Years [...] OB [address] [place] [address] Amy Abebe PA [address] [facility] [address] [place], [place] [address] documented as of this encounter Visit Diagnoses Not on filedocumented in this encounter
--- OUTSIDE RECORDS SUMMARY | 2024-12-19 22:53 | XMS_ITS | Encounter Summary ---
Author Organization [facility] Address [address] [place] [address] Care Team Providers Care Raw Stock Machine Loader Name Role Phone Unavailable Primary Care Provider Unavailabl e Encounter Details Date Type Department Care Team (Late st Contact Info) Description 12/11/2024 Clinisync Result Encounter [facility] External Department Unsolicited Andrzej Hodge DO [address] [facility] [address] [place], [place] [address] Social History Tobacco Use Types Packs/Day Years [...] AM EDT Routine [facility] [address] [facility] [place] [id number] Amy Abebe PA [address] [place] [address] documented as of this encounter Procedures Procedure Name Priority Date/Time Associated Diagnosis Comments [facility] URINE MICROSCOPIC ONLY Routine 12/11/2024 7:50 PM EDT TBH UA (CLEAN/CATCH) BIN TRIPPER OPERATOR/MICRO IF IND. Routine 12/11/2024 7:50 PM EDT documented in this encounter Results * (ABNORMAL) [facility] URINE MICROSCOPIC ONLY (12/11/2024 7:50 PM EDT) [facility]H WBC 2-5(A) NONE SEEN #/HPF TBH TBH RBC 0-2 0 - 2 #/HPF TBH BACTERIA URINE MODERATE(A ) NONE SEEN #/HPF TBH MUCUS URINE MODERATE(A ) NONE SEEN TBH SQUAMOUS EPITHELIAL CELL URINE MODERATE(A ) NONE/RARE #/LPF TBH CRYSTALS SEEN? None Seen None Seen #/HPF TBH CAST SEEN? NONE SEEN NONE SEEN #/LPF TBH URINE CULTURE INDICATED YES-LC [facility]H 12/11/2024 7:50 PM EDT 12/11/2024 9:08 PM EDT Narrative [facility] - 12/11/2024 9:38 PM EDT us Andrzej Ayesha DO [facility] Final Result [facility] * (ABNORMAL) TBH UA (CLEAN/CATCH) BIN TRIPPER OPERATOR/MICRO IF IND. (12/11/2024 7:50 PM EDT) COLOR URINE LT. YELLOW YELLOW TBH CLARITY URINE CLEAR CLEAR TBH SPECIFIC GRAVITY URINE 1.025 1.005 - 1.025 TBH PH URINE 6.0 5.0 - 9.0 TBH PROTEIN URINE NEGATIVE NEG/TRACE mg/dL TBH GLUCOSE URINE UA NEGATIVE NEGATIVE mg/dL TBH BILIRUBIN URINE NEGATIVE NEGATIVE TBH KETONES URINE NEGATIVE NEGATIVE mg/dL TBH BLOOD URINE NEGATIVE NEGATIVE TBH NITRITE URINE NEGATIVE NEGATIVE TBH UROBILINOGEN URINE 0.2 0.2 - 1.0 EU/dL TBH LEUKOCYTE ESTERASE URINE TRACE(A) NEGATIVE TBH URINE MICROSCOPIC INDICATED YES [facility]H 12/11/2024 7:50 PM EDT 12/11/2024 9:08 PM EDT Narrative [facility] - 12/11/2024 9:38 PM EDT us Andrzej Ayesha DO [facility] Final Result [facility] documented in this encounter Visit Diagnoses Not on filedocumented in this encounter
--- OUTSIDE RECORDS SUMMARY | 2024-12-19 22:53 | XMS_ITS | Encounter Summary ---
Author Organization [facility] Address [address] [place] [address] Care Team Providers Care Cremator Name Role Phone Unavailable Primary Care Provider Unavailabl e Encounter Details Date Type Department Care Team (Late st Contact Info) Description 09/14/2024 External Result [address] [facility] OB [address] [facility] [place] [address] Andrzej Hodge DO [address] [facility] [address] [place], [facility]11 Social History Tobacco Use [...] EDT Routine [facility] BCP OB [address] [facility] [place] [address] Amy Abebe PA [address] [place], [facility]11 documented as of this encounter Procedures Procedure Name Priority Date/Time Associated Diagnosis Comments US OB 14+ WEEKS ANATOMY SCAN 09/14/2024 1:09 PM EST documented in this encounter Results * US OB 14+ weeks anatomy scan (09/14/2024 1:09 PM EST) Anatomical Region Laterality Modality Body Ultrasound 09/14/2024 1:09 PM EST Narrative 09/14/2024 1:09 PM EST THIS EXAM WAS PERFORMED AT [facility] Coding ====== Procedures 07647: Ultrasound, uterus, real time with image documentation, and maternal evaluation plus detailed anatomic examination, transabdominal approach;single or first gestation 69068: Transvaginal Ultrasound (OB) Indication ======== Screening for Anatomic Survey , Screening for cervical length , History of prior with delivery , Supervision of high risk - left pyelectasis , Obesity in History ====== OB History 3. Para 1 Children born living <37w 1. Miscarriages 1 L1 Current Cell free DNA analysis Low Risk Maternal Assessment Physical Exam Height 163 cm, 5 ft 4 in. Weight 83 kg, 182 lb. BMI 31.24 kg/m??? Method ====== Transabdominal and transvaginal ultrasound examination. View: Suboptimal view: limited by position ========= [place] . Number of fetuses: 1 Dating ====== Date Details Gest. age FERN LMP 04/04/2024 23 w + 2 d 01/09/2025 Previous U/S 05/22/2024 GA, GA 6 w + 5 d 23 w + 1 d 01/10/2025 U/S 09/14/2024 based upon AC, BPD, Femur, HC 23 w + 3 d 01/08/2025 Assigned dating based on the LMP, selected on 09/14/2024 23 w + 2 d 01/09/2025 General Evaluation Cardiac activity Present. FHR 153 bpm. Presentation: cephalic Placenta: Placental site: anterior, away from cervical os Umbilical cord: Cord vessels: 3 vessel cord. Insertion site: normal insertion Amniotic fluid: Amount of AF: normal amount Biometry BPD 57.3 mm 23w 4d 54% Hadlock OFD 74.3 mm 24w 4d 85% Mckenzie HC 210.9 mm 23w 1d 30% Hadlock Cerebellum tr 25.4 mm 23w 0d 69% Hill Nuchal fold 5.1 mm AC 184.6 mm 23w 2d 41% Hadlock Femur 42.1 mm 23w 5d 53% Hadlock Humerus 37.7 mm 23w 2d 38% Mckenzie HC / AC 1.14 Weight Calculation: EFW 595 g 49% Hadlock EFW (lb,oz) 1 lb 5 oz EFW by Hadlock ([id number]) Head / Face / Neck Biometry: Cephalic index 0.77 34% Nicolaides Software Tester 5.0 mm CM 3.7 mm 4% Nicolaides Inner IOD 15.7 mm Outer IOD 35.9 mm Extremities / Bony Struc Biometry: FL / BPD 0.73 FL / HC 0.20 FL / AC 0.23 Tibia 35.6 mm 23w 3d 50% Mckenzie Anatomy The following structures appear abnormal: Abdomen Kidneys: pyelectasis of the left kidney. The following structures appear normal: Head / Neck Cranium. Lateral ventricles. Choroid plexus. Cavum septi pellucidi. Cerebellum. Cisterna magna. Parenchyma. Vermis. Neck. Nuchal fold. Face Profile. Nasal bone. Maxilla. Mandible. Orbits. Heart / Thorax RVOT view. LVOT view. 3-vessel view. Situs. Aortic arch view. Ductal arch view. Cardiac position. Cardiac axis. Cardiac size. Cardiac rhythm. Diaphragm. Abdomen Abdom. wall. Cord insertion. Stomach. Bladder. Small bowel. Large bowel. Right renal artery. Left renal artery. Spine Cervical spine. Thoracic spine. Lumbar spine. Sacral spine. Extremities / Skeleton Right upper arm. Right forearm. Right hand. Left upper arm. Left forearm. Left hand. Right upper leg. Right lower leg. Right foot. Left upper leg. Left lower leg. Left foot. The following structures could not be adequately visualized: Heart / Thorax 4-chamber view. 8-jipzzo-zeuiftb view. Interventricular septum. Great vessels. The following structures could not be examined: Head / Neck Midline falx. Face Lips. Nose. Heart / Thorax Bicaval view. Right lung. Left lung. Abdomen Genitals. Maternal Structures Uterus Visualized Cervix Visualized Approach - Transvaginal: Cervical length 2.60 cm Right Ovary Not visualized Left Ovary Not visualized Cul de Sac Visualized. No free fluid visualized Impression ========= Single viable intrauterine consistent with 23w 2d with an FERN of 01/09/2025. Transvaginal cervical length measures 2.6 cm. Pyelectasis of the left kidney visualized measuring 5 mm. Recommendations Please see MFM documentation from today. The patient is scheduled in four to six week(s) to complete anatomic survey. Subsequent follow up or other follow up as clinically determined by primary OB provider unless otherwise specified by MFM. Results forwarded to ordering provider so they can follow up with the patient as necessary. Procedure Note Radiology, Radiologist, - 09/14/2024 THIS EXAM WAS PERFORMED AT [facility] Coding ====== Procedures [id number]: Ultrasound, uterus, real time with imagedocumentation, and maternal evaluation plus detailed fetalanatomic examination, transabdominal approach;single or firstgestation 58952: Transvaginal Ultrasound (OB) Indication ======== Screening for Anatomic Survey , Screening for cervical length , History ofprior with delivery , Supervision of high riskpregnancy- left pyelectasis , Obesity in History ====== OB History 3. Para 1 Children born living <37w 1. Miscarriages 1 L1 Current Cell free DNA analysis Low Risk Maternal Assessment Physical Exam Height 163 cm, 5 ft 4 in. Weight 83 kg, 182 lb. BMI 31.24kg/m??? Method ====== Transabdominal and transvaginal ultrasound examination. View: Suboptimalview: limited by position ========= [place] . Number of fetuses: 1 Dating ====== Date Details Gest. ageEDD LMP 04/04/2024 23 w + 2 01/09/2025 Previous U/S 05/22/2024 GA, GA 6 w + 5 d 23w + 1 d 01/10/2025 U/S 09/14/2024 based upon AC, BPD, Femur, HC 23w + 3 d 01/08/2025 Assigned dating based on the LMP, selected on w + 2 d 01/09/2025 General Evaluation Cardiac activity Present. FHR 153 bpm. Presentation: cephalic Placenta: Placental site: anterior, away from cervical os Umbilical cord: Cord vessels: 3 vessel cord. Insertion site: normalinsertion Amniotic fluid: Amount of AF: normal amount Biometry BPD 57.3 mm 23w 4d 54% Hadlock OFD 74.3 mm 24w 4d 85% Mckenzie HC 210.9 mm 23w 1d 30% Hadlock Cerebellum tr 25.4 mm 23w 0d 69% Hill Nuchal fold 5.1 mm AC 184.6 mm 23w 2d 41% Hadlock Femur 42.1 mm 23w 5d 53% Hadlock Humerus 37.7 mm 23w 2d 38% Mckenzie HC / AC 1.14 Weight Calculation: EFW 595 g 49% Hadlock EFW (lb,oz) 1 lb 5 oz EFW by Hadlock ([id number]) Head / Face / Neck Biometry: Cephalic index 0.77 34% Nicolaides Software Tester 5.0 mm CM 3.7 mm 4% Nicolaides Inner IOD 15.7 mm Outer IOD 35.9 mm Extremities / Bony Struc Biometry: FL / BPD 0.73 FL / HC 0.20 FL / AC 0.23 Tibia 35.6 mm 23w 3d 50% Mckenzie Anatomy The following structures appear abnormal: Abdomen Kidneys: pyelectasis of the left kidney. The following structures appear normal: Head / Neck Cranium. Lateral ventricles. Choroid plexus. Cavum septipellucidi. Cerebellum. Cisterna magna. Parenchyma. Vermis. Neck. Nuchal fold. Face Profile. Nasal bone. Maxilla. Mandible. Orbits. Heart / Thorax RVOT view. LVOT view. 3-vessel view. Situs. Aortic archview. Ductal arch view. Cardiac position. Cardiac axis. Cardiac size.Cardiac rhythm. Diaphragm. Abdomen Abdom. wall. Cord insertion. Stomach. Bladder. Small bowel.Large bowel. Right renal artery. Left renal artery. Spine Cervical spine. Thoracic spine. Lumbar spine. Sacralspine. Extremities / Skeleton Right upper arm. Right forearm. Right hand. Leftupper arm. Left forearm. Left hand. Right upper leg. Right lower leg.Right foot. Left upper leg. Left lower leg. Left foot. The following structures could not be adequately visualized: Heart / Thorax 4-chamber view. 7-ogscsy-eovxrmo view. Interventricularseptum. Great vessels. The following structures could not be examined: Head / Neck Midline falx. Face Lips. Nose. Heart / Thorax Bicaval view. Right lung. Left lung. Abdomen Genitals. Maternal Structures Uterus Visualized Cervix Visualized Approach - Transvaginal: Cervical length 2.60 cm Right Ovary Not visualized Left Ovary Not visualized Cul de Sac Visualized. No free fluid visualized Impression ========= Single viable intrauterine consistent with 23w 2d with an FERN of01/09/2025. Transvaginal cervical length measures 2.6 cm. Pyelectasis of the left kidney visualized measuring 5 mm. Recommendations Please see M documentation from today. The patient is scheduled in four to six week(s) to complete anatomicsurvey. Subsequent follow up or other follow up as clinically determined byprimary OB provider unless otherwise specified by MFM. Results forwarded to ordering provider so they can follow up with thepatient as necessary. us Andrzej ULLOAG OB US PROCEDURES Final Resul t documented in this encounter Visit Diagnoses Not on filedocumented in this encounter
--- OUTSIDE RECORDS SUMMARY | 2024-12-19 22:53 | XMS_ITS | Encounter Summary ---
Author Organization [facility] Address [address] [place] [address] Care Team Providers Care Guest Experience Specialist Name Role Phone Unavailable Primary Care Provider Unavailabl e Encounter Details Date Type Department Care Team (Late st Contact Info) Description 04/25/2023 Abstract [facility] OB [address] [place] [address] Andrzej Hodge, DO [address] [facility] [address] [place], [place] [id number] Social History Tobacco Use Types Packs/Day Years [...] suspected to have Coronavirus/COVID-19? No / Unsure 04/19/2023 9:55 AM EDT documented as of this encounter Plan of Treatment Upcoming Encounters Date Type Department Care Team (Late st Contact Info) Description 12/20/2024 9:50 AM EDT Routine N[facility] OB [address] [place] [address] Amy Abebe PA [address] [facility] [place] [address] documented as of this encounter Visit Diagnoses Not on filedocumented in this encounter
--- OUTSIDE RECORDS SUMMARY | 2024-12-19 22:53 | XMS_ITS | Encounter Summary ---
Author Organization [facility] Address [address] [place] [address] Care Team Providers Care Educational Therapy Teacher Name Role Phone Unavailable Primary Care Provider Unavailabl e Encounter Details Date Type Department Care Team (Late st Contact Info) Description 07/06/2024 Abstract [facility] OB [address] [facility] [place] [address] Andrzej Hodge DO [address] [facility] [address] [place], [facility]11 Social History Tobacco Use Types Packs/Day Years [...] AM EDT Routine [facility] BCP OB [address] [facility] [place] [place] [address] Amy Abebe PA [address] [facility] [place] [address] documented as of this encounter Visit Diagnoses Not on filedocumented in this encounter
--- OUTSIDE RECORDS SUMMARY | 2024-12-19 22:53 | XMS_ITS | Encounter Summary ---
Author Organization [facility] Address [address] [place] [address] Care Team Providers Care Tester Sound Name Role Phone Unavailable Primary Care Provider Unavailabl e Encounter Details Date Type Department Care Team (Late st Contact Info) Description 06/22/2024 Clinisync Result Encounter [facility] External Department Unsolicited Teresita Hodge DO [address] [facility] [address] [place], [facility]11 Social History Tobacco Use Types Packs/Day [...] AM EDT Routine [facility] [address] [facility] [phone] Amy Abebe PA [address] [place], [place] [address] documented as of this encounter Procedures Procedure Name Priority Date/Time Associated Diagnosis Comments US OB CERVICAL LENGTH 06/22/2024 1:10 PM EST documented in this encounter Results * US OB CERVICAL LENGTH (06/22/2024 1:10 PM EST) Anatomical Region Laterality Modality Other 06/22/2024 1:10 PM EST Narrative 06/22/2024 1:12 [place] [address] Ultrasound Report Signed Patient: ALEXANDRA HIGGINS MR#: [id number] : 2000 Acct:[id number] Age/Sex: 23 / F ADM Date: 06/22/24 Loc: US Attending Dr: Teresita Hodge D.O. Ordering Physician: Teresita Hodge D.O. Date of Service: 06/22/24 Procedure(s): US OB cervical length Accession Number(s): [id number] cc: Teresita Hodge D.O.; Physician,Non-Staff M.D. The [place] [address] Patient Name: ALEXANDRA HIGGINS MRN: [id number] date: 2000 Sex: F Assigned Patient Location: US Current Patient Location: US Accession/Order Number: [id number] Exam Date: 06/22/2024 10:15 Report Date: 06/22/2024 13:10 At the request of: TERESITA HODGE Procedure: US OB cervical length EXAMINATION: US OB cervical length HISTORY: Encounter for screening for cervical length Z36.86 COMPARISON: Ultrasound OB transvaginal 05/22/2024 TECHNIQUE: Transabdominal and transvaginal sonographic examination for cervical length. FINDINGS: CERVIX LENGTH: 2.4 cm; closed. HEART RATE: 163 bpm Age by EDC: 11 weeks 2 days FERN by EDC: 01/09/2025 US/US OB cervical length IMPRESSION: 1. Short cervix 2.4 cm in length. (Cervix was 2.9 cm on 05/22/2024) Electronically authenticated by: ARIAS JADE Date: 06/22/2024 13:10 Dictated By: Arias Jade M.D. Signed By: 06/22/24 1312 DD/ 131 TD/TT: Artist'S Manager: Procedure Note Radiology, Radiologist, MD - 06/22/2024 [place] [address] Ultrasound Report Signed Patient: ALEXANDRA HIGGINS DMR#: [id number] : 2000Acct:[id number] Age/Sex: 23 / FADM Date: 06/22/24 Loc: US Attending Dr: Teresita Hodge D.O. Ordering Physician: Teresita Hodge D.O. Date of Service: 06/22/24 Procedure(s): US OB cervical length Accession Number(s): [id number] cc: Teresita Hodge D.O.; Physician,Non-Staff Viri [facility] [place] [id number] Patient Name: ALEXANDRA HIGGINS MRN: [id number] date: 2000 Sex: F Assigned Patient Location: US Current Patient Location: US Accession/Order Number: [id number] Exam Date: 06/22/2024 10:15 Report Date: 06/22/2024 13:10 At the request of: TERESITA HODGE Procedure: US OB cervical length EXAMINATION: US OB cervical length HISTORY: Encounter for screening for cervical length Z36.86 COMPARISON: Ultrasound OB transvaginal 05/22/2024 TECHNIQUE: Transabdominal and transvaginal sonographic examination for cervical length. FINDINGS: CERVIX LENGTH: 2.4 cm; closed. HEART RATE: 163 bpm Age by EDC: 11 weeks 2 days FERN by EDC: 01/09/2025 US/US OB cervical length IMPRESSION: 1. Short cervix 2.4 cm in length. (Cervix was 2.9 cm on 05/22/2024) Electronically authenticated by: ARIAS JADE Date: 06/22/2024 13:10 Dictated By: Arias Jade M.D. Signed By:06/22/241311 DD/ 09 TD/TT: Artist'S Manager: us Teresita Hodge DO [facility] Final Result documented in this encounter Visit Diagnoses Not on filedocumented in this encounter
--- OUTSIDE RECORDS SUMMARY | 2024-12-19 22:53 | XMS_ITS | Encounter Summary ---
Author Organization [facility] Address [address] [place] [address] Care Team Providers Care Financial Solutions Advisor Name Role Phone Unavailable Primary Care Provider Unavailabl e Encounter Details Date Type Department Care Team (Late st Contact Info) Description 07/12/2024 Abstract [facility] OB [address] [facility] [place] [address] Andrzej Hdoge DO [address] [facility] [address] [place], [facility]11 Social History Tobacco Use Types [...] AM EDT Routine [facility] BCP OB [address] [facility] [place] [address] Amy Abebe PA [address] [facility] [place] [address] documented as of this encounter Visit Diagnoses Not on filedocumented in this encounter
--- OUTSIDE RECORDS SUMMARY | 2024-12-19 22:53 | XMS_ITS | Encounter Summary ---
Author Organization [facility] Address [address] [place] [address] Care Team Providers Care Inside Horticultural Specialty Grower Name Role Phone Unavailable Primary Care Provider Unavailabl e Encounter Details Date Type Department Care Team (Late st Contact Info) Description 06/07/2024 Abstract [facility] OB [address] [facility] [place] [address] Andrzej Hodge DO [address] [facility] [address] [place], [facility]11 Social History Tobacco Use Types Packs/Day Years [...] Description 12/20/2024 9:50 AM EDT Routine [facility] OB [address] [facility] [place] [address] Amy Abebe PA [address] [facility] [place] [address] documented as of this encounter Visit Diagnoses Not on filedocumented in this encounter
--- OUTSIDE RECORDS SUMMARY | 2024-12-19 22:53 | XMS_ITS | Encounter Summary ---
Author Organization [facility] tem Address [id number] [address] [place] [address] Care Team Providers Care Restaurant Assistant Manager Name Role Phone Unavailable Primary Care Provider Unavailabl e Encounter Details Date Type Department Care Team (Late st Contact Info) Description 09/14/2024 Orders Only Maternal- Medicine at [facility] [address] [place] [phone] Ref Prov, [place] [address] Social History Tobacco Use Types Packs/Day Years [...] Procedure Name Priority Date/Time Associated Diagnosis Comments ULTRASOUND OFFICE Routine 05/22/2024 10:33 AM EDT documented in this encounter Results * Ultrasound - Office (05/22/2024 10:33 AM EDT) Anatomical Region Laterality Modality AMB Ultrasound us Not In System Ref Prov IMG US ORDERABLES Final R esult documented in this encounter Visit Diagnoses Not on filedocumented in this encounter
--- OUTSIDE RECORDS SUMMARY | 2024-12-19 22:53 | XMS_ITS | Encounter Summary ---
Author Organization [facility] Address [address] [place] [address] Care Team Providers Care College Administrator Name Role Phone Unavailable Primary Care Provider Unavailabl e Encounter Details Date Type Department Care Team (Late st Contact Info) Description 05/22/2024 Abstract [facility] OB [address] [facility] [place] [address] Andrzej Hodge DO [address] [facility] [address] [place] [place], [place] [id number] Social History Tobacco Use Types Packs/Day Years [...] AM EDT Routine [facility] B[facility] OB [address] [facility] [place] [address] Amy Abebe PA [address] [facility] [address] [place], [place] [id number] documented as of this encounter Visit Diagnoses Not on filedocumented in this encounter
--- OUTSIDE RECORDS SUMMARY | 2024-12-19 22:53 | XMS_ITS | Encounter Summary ---
Author Organization [facility] Address [address] [place] [address] Care Team Providers Care Gis Manager Name Role Phone Unavailable Primary Care Provider Unavailabl e Encounter Details Date Type Department Care Team (Late st Contact Info) Description 06/07/2024 Abstract [facility] OB [address] [facility] [place] [address] Andrzej Hodge DO [address] [facility] [address] [place], [facility]11 Social History Tobacco Use Types Packs/Day [...] Description 12/20/2024 9:50 AM EDT Routine [facility] OB [address] [facility] [place] [address] Amy Abebe PA [address] [facility] [place] [address] documented as of this encounter Visit Diagnoses Not on filedocumented in this encounter
--- OUTSIDE RECORDS SUMMARY | 2024-12-19 22:53 | XMS_ITS | CCD ---
Author Organization [facility] Care Team Providers Care Knitter Helper Name Role Phone ALEXIA BARRETT Attending [...] ANDRZEJ Referring Unavailable MIS, Attending Unavailable AYESHA, ANRDZEJ Attending Unavailable MIS, Attending Unavailable LACONIPAM Medley Attending Unavailable MIS, Attending Unavailable MIS, Attending Unavailable AYESHA, ANDRZEJ Attending Unavailable HENRIQUE WANG Attending Unavailable AYESHA, ANDRZEJ Attending Unavailable AYESHA, ANDRZEJ Attending Unavailable Allergies Allergy Classification Reported Allergen(s) Allergy Type Date of Onset Reaction(s) Facility (6 sources) Pollen; Translations: [POLLEN EXTRACTS] Propensity to adverse reactions to drug 5 Eye Swelling [facility] (19 sources) Pollen Propensity to adverse reactions 5 [...] constipation 60 capsule 5 08/14/2024 11/12/2024 Active metroNIDAZOLE 500 mg oral tablet (6 [...] this medication. 14 tablet 09/11/2024 09/18/2024 Active [id number] AC-DHA ORAL (4 sources) [id number] AC-DHA ORAL Take by mouth. Active progesterone 200 mg oral capsule (4 [...] Drug Class(es) Dates Sig (Normalized) Sig (Original) [id number] 200 actuat albuterol 0.09 mg/actuat metered dose inhaler (7 sources) beta2-Adrenergic Agonist End: 06-07-2024 albuterol HFA (Ventolin HFA) 90 mcg/act inhaler every 4 (four) hours. 06/07/2024 Discontinued cephalexin 500 mg oral capsule (2 sources) Cephalosporin Antibacterial Start: 11-26-2024 End: 12-11-2024 take 1 capsule by mouth in the morning, then take 1 capsule by mouth in the evening, then take 1 capsule by mouth at bedtime cephalexin (Keflex) 500 MG capsule Indications: Urinary tract infection without hematuria, site unspecified Take 1 capsule (500 mg) by mouth in the morning and 1 capsule (500 mg) in the evening and 1 capsule (500 mg) before bedtime. Do all this for 7 days. 21 capsule 11/26/2024 12/11/2024 Discontinued magnesium oxide 400 mg oral tablet (20 sources) Start: 08-14-2024 End: 08-14-2025 take 1 tablet by mouth once daily magnesium oxide (Mag-Ox) 400 MG tablet Indications: Other headache syndrome Take 1 tablet (400 mg) by mouth Daily 30 tablet 11 08/14/2024 12/11/2024 Discontinued polysaccharide iron complex 391 mg oral capsule (8 sources) Start: 11-22-2024 End: 12-22-2024 take 1 capsule by mouth once daily iron polysaccharides (ProFe) 391.3 (180 Fe) MG capsule Indications: Other iron deficiency anemia Take 1 capsule (391.3 mg) by mouth Daily 30 capsule 6 11/22/2024 12/11/2024 Discontinued Start: 08-16-2023 End: 08-31-2023 take 1 capsule [...] time. 0 09/21/2022 08/31/2023 Discontinued (Therapy completed) EN-Wbe-YM-[place]-3 ( Gummies/DHA & FA) 0.4-32.5 MG chewable tablet (1 source) Start: 03-03-2023 End: 08-31-2023 MN-Nvu-OY-[place]-3 ( Gummies/DHA & FA) 0.4-32.5 MG chewable tablet MV-Min-Fe Fum-FA-DHA (CENTRUM SPECIALIST PO) (20 sources) End: 12-11-2024 take 1 dose by mouth once in the morning MV-Min-Fe Fum-FA-DHA (CENTRUM SPECIALIST PO) Take 1 each by mouth in the morning. 12/11/2024 Discontinued take 1 dose by mouth once in the morning MV-Min-Fe Fum-FA-DHA (CENTRUM SPECIALIST PO) Take 1 each by mouth in the morning. Active take 1 dose by mouth once in the morning MV-Min-Fe Fum-FA-DHA (CENTRUM SPECIALIST PO) Take 1 each by mouth in the morning. 0 Active Problems Active Problems Problem Classification Problem Date [...] [34 weeks gestation of ] 12-04-2024 Episodic Residual codes; unclassified (2 sources) Gestation period, 35 weeks; Translations: [35 weeks gestation of ] 12-11-2024 Episodic Spontaneous (4 sources) Incomplete spontaneous without [...] Test Name Value Interpretation Reference Range Facility [facility] UA (CLEAN/CATCH) SLIP LASTER/KEARA RO IF IND.on 12-11-2024 BILIRUBIN URINE Negative NEGATIVE [facility] thcare BLOOD URINE Negative NEGATIVE [facility] Healthca re Clarity (U) CLEAR CLEAR [facility] Healthmi re Color (U) LT. YELLOW YELLOW [facility] Healthcar e GLUCOSE URINE UA Negative NEGATIVE mg/dL [facility] Interpretation and review of laboratory results Abnormal [facility] Healthcare Ketones Ql (U) Negative NEGATIVE mg/dL [facility] H ealthcare Leukocyte esterase Test strip Ql (U) TRACE Abnormal NEGATIVE [facility] Healthcar e NITRITE URINE Negative NEGATIVE [facility] Health care pH (U) 6.0 [pH] 5.0 - 9.0 [facility] Healthcar e PROTEIN URINE Negative NEG/TRACE mg/dL [facility] SPECIFIC GRAVITY URINE 1.025 1.005 - 1.025 [facility] URINE MICROSCOPIC INDICATED YES [facility] UROBILINOGEN URINE 0.2 EU/dL 0.2 - 1.0 EU/dL [facility] Healthcar e Urinalysis macro (dipstick) panel (U)on 12-11-2024 Bilirubin, UA Negative Negative - 4(70) +++ mg/dL [facility] Blood, UA Negative Negative - 50 William/mcL [facility] Healthcare Clarity, UA Clear [facility] re Color, UA Yellow [facility] Healthcar e Glucose, UA Negative Negative - 1999(110) ++++ mg/dL [facility] Interpretation and review of laboratory results Abnormal [facility] Ketones, UA Positive Negative - 160(16) ++++ mg/dL [facility] Comment on above: 40 Leukocytes, UA Positive Negative - 500+++ Roma/mcL [facility] Comment on above: small Nitrite, UA Negative Negative - Positive [facility] pH, UA 7 5 - 9 [facility] Healthcar e Protein, UA Negative Negative - 1999(20) ++++ mg/dL [facility] Spec Grav, UA 1.02 1 - 1.03 [facility] Urobilinogen, UA 0.2 0.2 - 12 mg/dL [facility] Healthcar e TBH UA (CLEAN/CATCH) SLIP LASTER/KEARA RO IF IND.on 11-26-2024 BILIRUBIN URINE Negative NEGATIVE [facility] thcare BLOOD URINE Negative NEGATIVE [facility] Healthca re Clarity (U) SL CLOUDY CLEAR [facility] Healthca re Color (U) LT. YELLOW YELLOW [facility] Healthcar e GLUCOSE URINE UA Negative NEGATIVE mg/dL [facility] Interpretation and review of laboratory results Abnormal [facility] Ketones Ql (U) Negative NEGATIVE mg/dL [facility] ealthcare Leukocyte esterase Test strip Ql (U) SMALL Abnormal NEGATIVE [facility] Healthcar e NITRITE URINE Negative NEGATIVE [facility] Health care pH (U) 8.0 [pH] 5.0 - 9.0 [facility] Healthcar e PROTEIN URINE Negative NEG/TRACE mg/dL [facility] SPECIFIC GRAVITY URINE 1.015 1.005 - 1.025 [facility] URINE MICROSCOPIC INDICATED YES [facility] UROBILINOGEN URINE 0.2 EU/dL 0.2 - 1.0 EU/dL [facility] Healthcar e Urinalysis macro (dipstick) panel (U)on 11-07-2024 Bilirubin, UA Negative Negative - 4(70) +++ mg/dL [facility] Blood, UA Negative Negative - 50 William/mcL [facility] Healthcare Clarity, UA Clear [facility] re Color, UA Yellow [facility] Glucose, UA Negative Negative - 1999(110) ++++ mg/dL [facility] Interpretation and review of laboratory results Abnormal [facility] Ketones, UA Negative Negative - 160(16) ++++ mg/dL [facility] Leukocytes, UA Positive Negative - 500+++ Roma/mcL [facility] Comment on above: small Nitrite, UA Negative Negative - Positive [facility] pH, UA 6.5 5 - 9 [facility] Healthcar e Protein, UA Negative Negative - 1999(20) ++++ mg/dL [facility] Spec Grav, UA 1.015 1 - 1.03 [facility] Urobilinogen, UA 0.2 0.2 - 12 mg/dL [facility] TBH UA (CLEAN/CATCH) SLIP LASTER/KEARA RO IF IND.on 10-15-2024 BILIRUBIN URINE Negative NEGATIVE [facility] thcare BLOOD URINE Negative NEGATIVE [facility] Healthca re Clarity (U) CLEAR CLEAR [facility] Healthca re Color (U) LT. YELLOW YELLOW [facility] Healthcar e GLUCOSE URINE UA Negative NEGATIVE mg/dL [facility] Interpretation and review of laboratory results Abnormal [facility] Ketones Ql (U) Negative NEGATIVE mg/dL [facility] H ealthcare Leukocyte esterase Test strip Ql (U) TRACE Abnormal NEGATIVE [facility] Healthcar e NITRITE URINE Negative NEGATIVE [facility] care pH (U) 8.5 [pH] 5.0 - 9.0 [facility] Healthcar e PROTEIN URINE Negative NEG/TRACE mg/dL [facility] SPECIFIC GRAVITY URINE 1.015 1.005 - 1.025 [facility] URINE MICROSCOPIC INDICATED YES [facility] UROBILINOGEN URINE 0.2 EU/dL 0.2 - 1.0 EU/dL [facility] Healthcar e US OB LIMITED 1+ FETUSESon 0 [...] UA Negative Negative - 4(70) +++ mg/dL [facility] Blood, UA Negative Negative - 50 William/mcL [facility] Clarity, UA Clear [facility] re Color, UA Yellow [facility] e Glucose, UA Negative Negative - 2000(110) ++++ mg/dL [facility] Interpretation and review of laboratory results Abnormal [facility] Ketones, UA Positive Negative - 160(16) ++++ mg/dL [facility] Comment on above: 40mg/dL Leukocytes, UA Positive Negative - 500+++ Roma/mcL [facility] Comment on above: small Nitrite, UA Negative Negative - Positive [facility] pH, UA 6.5 5 - 9 [facility] [employer] e Protein, UA Negative Negative - 2000(20) ++++ mg/dL [facility] Spec Grav, UA 1.025 1 - 1.03 [facility] Urobilinogen, UA 0.2 0.2 - 12 mg/dL [facility] Healthcar e AFP, SERUM, OPEN SPINA BIFID Aon 09-01-2024 AFP MOM 1.38 . [facility] e AFP VALUE 86.3 ng/mL . [facility] [employer] [place] e COMMENT: Comment . [facility] [employer] [facility] [employer] [facility] e Comment on above: Kristi Han , Ph.D., [facility] Director References: Available Upon Request. Multiples Of Median Cutoffs For AFP Elevations Barahona 2.5 Black 2.8 IDD 2.0 Twins 4.5 Abbreviation Definitions IDD - Insulin Dep Diabetes OSBR - Open Spina Bifida Risk For further inquiries contact [employer] at [phone]. This test was developed and its performance characteristics determined by [facility]. It has not been cleared or approved by the Food and Drug Administration. Performed at: - [facility] [address] [place], [place] [id number] Senior Living Sales Counselor: Marisel Lewis [facility], Phone: [phone] GEST. AGE ON COLLECTION DATE 21.1 . weeks [facility] GESTAT. AGE BASED ON LMP . [facility] Comment on above: Recalculations are n ot recommended when gestational dating by LMP and ultrasound are within 10 days. INSULIN DEP DIABETES No . [facility] INTERPRETATION Comment . [facility] Comment on above: Interpretation: Scre en [...] Customer Services to discuss available options. The [employer] recommends amniocentesis be offered to women age 35 and older. [age] [facility] MULTIPLE GESTATION No . [facility] H ealthcare OSBR RISK 1 IN 7620 . [facility] RACE Black . [facility] [employer] [facility] RESULTS Report . [facility] [employer] e TEST RESULTS: Negative . [facility] care WEIGHT 183 . lbs [facility] [employer] N N LMP [id number] [phone] N 1 183 N N N N N Black/ [facility] [employer] US OB 14+ WEEKS ANATOMY SCAN [...] UA Negative Negative - 4(70) +++ mg/dL [facility] Blood, UA Negative Negative - 50 William/mcL [facility] Clarity, UA Clear [facility] re Color, UA Yellow [facility] e Glucose, UA Negative Negative - 1999(110) ++++ mg/dL [facility] Interpretation and review of laboratory results Normal [facility] Ketones, UA Negative Negative - 160(16) ++++ mg/dL [facility] Leukocytes, UA Negative Negative - 500+++ Roma/mcL [facility] Nitrite, UA Negative Negative - Positive [facility] pH, UA 7 5 - 9 [facility] e Protein, UA Negative Negative - 1999(20) ++++ mg/dL [facility] Spec Grav, UA 1.02 1 - 1.03 [facility] Urobilinogen, UA 0.2 0.2 - 12 mg/dL [facility] OB TRANSVAGINALon 01-08-2 025 US OB TRANSVAGINAL TITLE OF EXAM: [...] GDLNon AGE GDLN ACOG TESTING Note . [facility] Comment on above: TESTS RESULT FLAG UN ITS REF RANGE LAB Clinician Provided Cytology Information Source.............Cervix No. of containers..01 ThinPrep Vial Age Algo ACOG Kassidy... - 01 FLAG LEGEND: L-Low Normal,H-High Normal,LL-Alert Low,HH-Alert High <-Panic Low,>-Panic High,A-Abnormal,AA-Critical Abnormal Performed at: 01 =G [address] [id number] Cortney Arciniega MD, IGP, RFX APTIMA HPV ASCU Note . [facility] Comment on above: TESTS RESULT FLAG U NITS REF RANGE LAB DIAGNOSIS: 02 NEGATIVE FOR INTRAEPITHELIAL LESION OR MALIGNANCY. Specimen adequacy: 02 Satisfactory for evaluation. No endocervical component is identified. Performed by: 02 Bry Segundo, Community Outreach Specialist ([facility]) . 02 Note: Note 02 The [...] <-Panic Low,>-Panic High,A-Abnormal,AA-Critical Abnormal Performed at: 02 WB [facility] [address] [id number] Cortney Arciniega MD, Performed at: =G - [facility] [address] [id number] Senior Living Sales Counselor: Cortney Arciniega MD, Phone: [phone] Performed at: [facility] [address], [place] [id number] Senior Living Sales Counselor: Cortney Arciniega MD, Phone: [phone] SPATULA[facility]ALONE C[facility]IX [facility] Urinalysis macro (dipstick) panel (U)on 07-16-2024 Bilirubin, UA Negative Negative - 4(70) +++ mg/dL [facility] Blood, UA Negative Negative - 50 William/mcL [facility] Clarity, UA Clear [facility] Healthca re Color, UA Yellow [facility] Healthcar e Glucose, UA Negative Negative - 1999(110) ++++ mg/dL [facility] Interpretation and review of laboratory results Normal [facility] Ketones, UA Negative Negative - 160(16) ++++ mg/dL [facility] Leukocytes, UA Negative Negative - 500+++ Roma/mcL [facility] Nitrite, UA Negative Negative - Positive [facility] pH, UA 8.5 5 - 9 [facility] Healthcar e Protein, UA Negative Negative - 1999(20) ++++ mg/dL [facility] Spec Grav, UA 1.02 1 - 1.03 [facility] Urobilinogen, UA 0.2 0.2 - 12 mg/dL [facility] BOX TESTon 06-14-2024 BOX TEST SENT OUT [employer] [facility] BOX1 [facility] Healthcar e BOX2 06/14/24 [facility] BOX [facility] No Panel Informationon 06-14 [facility] Rubella IGG immune statuson 06-14-2024 Rubella immune IgG IMMUNE [facility] HCG ( test) Ql (U)o n 06-07-2024 Interpretation and review of laboratory results Abnormal [facility] Preg Test, Ur Positive Negative [facility] Urinalysis macro (dipstick) panel (U)on 06-07-2024 Bilirubin, UA Negative Negative - 4(70) +++ mg/dL [facility] Blood, UA Negative Negative - 50 William/mcL [facility] Clarity, UA Clear [facility] Healthca re Color, UA Yellow [facility] Healthcar e Glucose, UA Negative Negative - 1999(110) ++++ mg/dL [facility] Interpretation and review of laboratory results Abnormal [facility] Ketones, UA Negative Negative - 160(16) ++++ mg/dL [facility] Leukocytes, UA Positive Negative - 500+++ Roma/mcL [facility] Comment on above: small Nitrite, UA Negative Negative - Positive [facility] pH, UA 7.5 5 - 9 [facility] Healthcar e Protein, UA Negative Negative - 1999(20) ++++ mg/dL [facility] Spec Grav, UA 1.02 1 - 1.03 [facility] Urobilinogen, UA 0.2 0.2 - 12 mg/dL [facility] Urinalysis macro (dipstick) panel (U)Ordered By: Shantel Rangel on 08-31-2023 Bilirubin, UA Negative Negative - 4(70) +++ mg/dL [facility] Blood, UA Negative Negative - 50 William/mcL [facility] Clarity, UA Clear [facility] re Color, UA Yellow [facility] e Glucose, UA Negative Negative - 1999(110) ++++ mg/dL [facility] Interpretation and review of laboratory results Abnormal [facility] Ketones, UA Positive Negative - 160(16) ++++ mg/dL [facility] Leukocytes, UA Trace Negative - 500+++ Roma/mcL [facility] Nitrite, UA Negative Negative - Positive [facility] pH, UA 7.5 5 - 9 [facility] Healthcar e Protein, UA Trace Negative - 1999(20) ++++ mg/dL [facility] Spec Grav, UA 1.020 1 - 1.03 [facility] Urobilinogen, UA 0.2 0.2 - 12 mg/dL [facility] Health[facility] e PAP ACOG PANEL 2: 21 to 29on 11-17-2022 . . Normal [facility] Comment on above: Performed By: #### [id number] #### [facility] [address] [address] [address] Aleah Peres Age Gdln ACOG Testing - Normal [facility] Comment on above: Performed By: #### [id number] #### [facility] [address] [address] [address] Aleah Peres DIAGNOSIS: Comment [facility] Comment on above: Result Comment: NEGA TIVE FOR INTRAEPITHELIAL LESION OR MALIGNANCY. Performed By: #### 4 [id number] #### [facility] [address] [place] [address] Dr. Aleah Peres Methodology: Comment Normal [facility] Comment on above: Result Comment: This liquid based ThinPrep(R) pap test was screened with the use of an image guided system. Performed By: #### 4 [id number] #### [facility] [address] [place] [address] Dr. Aleah Peres Note: Comment Normal [facility] Comment on above: Result Comment: The Pap smear is a screening test designed to aid in the detection of premalignant and malignant conditions of the uterine cervix. It is not a diagnostic procedure and should not be used as the sole means of detecting cervical cancer. Both false-positive and false-negative reports do occur. . Performed By: #### [id number] #### [facility] [address] [place] [address] Dr. Aleah Peres Performed by: Comment Normal [facility] Comment on above: Result Comment: Annelise Martinez Community Outreach Specialist Performed By: #### 4 [id number] #### [facility] [address] [place] [address] Dr. Aleah Peres Reflex Criteria: Comment Normal [facility] Comment on above: Result Comment: The HPV DNA reflex criteria were not met with this specimen result therefore, no HPV testing was performed. . Performed By: #### 4 [id number] #### [facility] [address] [place] [address] Dr. Aleah Peres Specimen adequacy: Comment Normal [facility] Comment on above: Result Comment: Sati sfactory for evaluation. Endocervical and/or squamous metaplastic cells (endocervical component) are present. Performed By: #### 4 [id number] #### [facility] [address] [place] [address] Dr. Aleah Peres Cytology Cervical or vaginal smear or scraping studyon 11-10-2022 [facility] OCC BLD IMMUNO SCREENon 0 OCCULT BLOOD Negative Normal NEGATIVE [facility] Comment on above: Performed By: #### O BSCRN #### [facility] [address] [place] [address] Dr. Aleah Peres SURGICAL PATH REPORTon 10-11 SURGICAL PATH REPORT [facility] Department of Pathology [address] [place] [phone] Name: CAMERON HIGGINS : 2000 [facility] [id number] Number: Gender Female Peter OLMOS [place] : n: Admit 22 years Attending ALEXIA BARRETT Age: Provider: Ordering ALEXIA BARRETT Provider: Consulti Surgical Pathology Report ng: ACCESSION: COLLECTED DATE/TIME: RECEIVED DATE/TIME: PATHOLOGIST: [id number] 10/08/2022 12:03 EDT 10/08/2022 12:03 EDT TOM AGUERO MD Final Diagnosis Report for [facility] [place] RET[employer]ED [employer] OF CONCEPTION: - CHORIONIC [...] is entirely submitted in two cassettes. MP/ ankita 10/08/2022 Tissue pathology report for: [facility], [address] [place] [address]; ____ Print 10/11/2022 15:01 EDT Number: Date/Time: [facility] Department of Pathology [address] [place] [phone] Name: CAMERON HIGGINS : 2000 [facility] [id number] Number: Gender Female Alvarezatio AMARILIS GARCIA : n: Admit 22 years Attending ALEXIA BARRETT Age: Provider: Ordering ALEXIA BARRETT Provider: Consulti Surgical Pathology Report ng: ACCESSION: COLLECTED DATE/TIME: RECEIVED DATE/TIME: PATHOLOGIST: [id number] 10/08/2022 12:03 EDT 10/08/2022 12:03 EDT LACI KHAN, TOM Gross Description PATHOLOGY SERVICES PROVIDED BY [employer] (CLIA #[id number]) in cooperation with [facility] at [address] [place] [address] ( CLIA #[id number]) Codes CPT CODE: 92251 ____ Print 10/11/2022 15:01 EDT Number: Date/Time: Normal [facility] Comment on above: Performed By: #### [id number] #### [facility] Services [address] [place] [id number] [employer]: Tom Aguero MD URon 10-08-2022 , QUAL Negative Normal NEGATIVE [facility] Comment on above: Performed By: #### P REGU #### [facility] [address] [place] [address] Dr. Aleah Peres US PELVIS AND TRANSVAGon [...] 2022-10-06 14:[address] [facility] [facility] SURGICAL PATH REPORTon 09-16 SURGICAL PATH REPORT [facility] Department of Pathology [id number] [place] [id number] Name: ALEXANDRA HIGGINS : 2000 [facility] [id number] Number: Gender Female [facility] : n: Admit 22 years Attending ANDRZEJ HODGE Age: Provider: Ordering ANDRZEJ HODGE Provider: Consulti Surgical Pathology Report ng: ACCESSION: COLLECTED DATE/TIME: RECEIVED DATE/TIME: PATHOLOGIST: [id number] 09/15/2022 12:34 EST 09/15/2022 12:34 EST LILLIE KHAN, LUIS ERAZO Final Diagnosis Report for [facility] [place] PRODUCTS OF CONCEPTION, DILATION AND CURETTAGE: - CHORIONIC VILLI ARE PRESENT; NO SIGNIFICANT ATYPIA IS OBSERVED. - BENIGN MATERIAL DECIDUA PRESENT. - NO PARTS ARE IDENTIFIED. LUIS MOREIRA PATHOLOGIST (Electronic Signature) Date Verified 09/16/2022 LN Clinical Data PRE-OP DIAGNOSIS: Not specified POST-OP DIAGNOSIS: Missed PROCEDURES: D and C with suction SPECIMEN: Products of conception / day care aide Gross Description Labeled products of conception. Received in formalin in a suction sock are multiple irregular segments of medrano pink to red black soft tissue. The individual segments have a variable granular to partially smooth glistening membranous character. The specimen in total aggregate measures 12.5 x 7.5 x 4.0 cm. There are no grossly identifiable parts. Garage Door Technician sections are submitted in three cassettes. MP/ald 09/15/2022 ____ Print 09/16/2022 14:53 EST Number: Date/Time: [facility] Department of Pathology [address] [place] [id number] Name: ALEXANDRA HIGGINS : 2000 [employer] [id number] Number: Gender Female [facility] MARYAN SYED : n: Admit 22 years Attending ANDRZEJ HODGE Age: Provider: Ordering ANDRZEJ HODGE Provider: Consulti Surgical Pathology Report ng: ACCESSION: COLLECTED DATE/TIME: RECEIVED DATE/TIME: PATHOLOGIST: [id number] 09/15/2022 12:34 EST 09/15/2022 12:34 EST LILLIE KHAN, LUIS ERAZO Gross Description Tissue pathology report for: [facility], [address] [place] [address]; [facility]OLOGY SERVICES [facility] (CLIA #[id number]) in cooperation with [facility] at [address] [place] [id number] ( CLIA #[id number]) Codes CPT CODE: 79767 ____ Print 09/16/2022 14:53 EST Number: Date/Time: Normal [facility] Comment on above: Performed By: #### [id number] #### [facility] Laboratory Services [address] [place] [address] Blower Feeder [employer] Raw Stock: Tom Aguero MD CBC AUTO DIFFon 09-15-2022 BASO # 0.0 103/ul Normal 0.0-0.1 [facility] Comment on above: Performed By: #### C BC #### [facility] [address] [place] [address] Dr. Aleah Peres Basophils/100 WBC (Bld) 0.4 % Normal 0.2-2.0 [facility] Comment on above: Performed By: #### C BC #### [facility] [address] [place] [address] Dr. Aleah Peres EO # 0.1 103/ul Normal 0.0-0.7 [facility] Comment on above: Performed By: #### C BC #### [facility] [address] [place] [address] Dr. Aleah Peres Eosinophils/100 WBC (Bld) 1.3 % Normal 0.9-7.0 [facility] Comment on above: Performed By: #### C BC #### [facility] [address] [place] [address] Dr. Aleah Peres Erythrocyte distribution width (RBC) [Ratio] 13.8 % Normal 11.0-15.0 [facility] Comment on above: Performed By: #### C BC #### [facility] [address] [place] [address] Dr. Aleah Peres Hematocrit (Bld) [Volume fraction] 35.5 % Critically low 36.0-48.0 [facility] Comment on above: Performed By: #### C BC #### [facility] [address] [place] [address] Dr. Aleah Peres Hemoglobin (Bld) [Mass/Vol] 11.6 g/dL Critically low 12.0-16.0 [facility] Comment on above: Performed By: #### C BC #### [facility] [address] [place] [address] Dr. Aleah Peres IG # 0.03 10e3/ul Normal 0.00-0.03 [facility] Comment on above: Performed By: #### C BC #### [facility] [address] [place] [address] Dr. Aleah Peres IG % 0.4 % Normal 0.0-0.5 [facility] Comment on above: Performed By: #### C BC #### [facility] [address] [place] [address] Dr. Aleah Peres LYMPH # 2.8 103/ul Normal 1.2-3.8 [facility] Comment on above: Performed By: #### C BC #### [facility] [address] [place] [address] Dr. Aleah Peres Lymphocytes/100 WBC (Bld) 32.9 % Normal 20.5-60.0 [facility] Comment on above: Performed By: #### C BC #### [facility] [address] [place] [address] Dr. Aleah Peres MANUAL DIFF REQ NO Normal [facility] Comment on above: Performed By: #### C BC #### [facility] [address] [place] [address] Dr. Aleah Peres MCH (RBC) [Entitic mass] 26.9 pg Normal 26.7-34.0 [facility] Comment on above: Performed By: #### C BC #### [facility] [address] [place] [address] Dr. Aleah Peres MCHC (RBC) [Mass/Vol] 32.7 g/dL Normal 29.9-35.[address] [facility] Comment on above: Performed By: #### C BC #### [facility] [address] [place] [address] Dr. Aleah Peres MCV (RBC) [Entitic vol] 82.4 fL Normal 81.0-99.0 [facility] Comment on above: Performed By: #### C BC #### [facility] [address] [place] [address] Dr. Aleah Peres MONO # 0.7 103/ul Normal 0.3-0.[address] [facility] Comment on above: Performed By: #### C BC #### [facility] [address] [place] [address] Dr. Aleah Peres Monocytes/100 WBC (Bld) 8.6 % Normal 1.7-12.[address] [facility] Comment on above: Performed By: #### C BC #### [facility] [address] [place] [address] Dr. Aleah Peres NEUT # 4.8 103/ul Normal 1.4-6.[address] [facility] Comment on above: Performed By: #### C BC #### [facility] [address] [place] [address] Dr. Aleah Peres Neutrophils/100 WBC (Bld) 56.4 % Normal 43.0-75.[address] [facility] Comment on above: Performed By: #### C BC #### [facility] [address] [place] [address] Dr. Aleah Peres Platelet mean volume (Bld) [Entitic vol] 9.9 fL Normal 9.5-13.5 [facility] Comment on above: Performed By: #### C BC #### [facility] [address] [place] [address] Dr. Aleah Peres PLT 316 103/ul Normal 150-[address] [facility] Comment on above: Performed By: #### C BC #### [facility] [address] [place] [address] Dr. Aleah Peres RBC 4.31 106/ul Normal 4.20-5.[address] [facility] Comment on above: Performed By: #### C BC #### [facility] [address] [place] [address] Dr. Aleah Peres WBC 8.4 103/ul Normal 4.0-11.[address] [facility] Comment on above: Performed By: #### C BC #### [facility] [address] [place] [address] Dr. Aleah Peres PREG QUANT HCGon 09-15-2022 HCG QUANT 32451 mIU/mL Normal [facility] Comment on above: Performed By: #### P REGQNT #### [facility] [address] [place] [address] Dr. Aleah Peres HCG RANGE SEE BELOW Normal [facility] Comment on above: Result Comment: 5-50 0.2-1 WEEK 50-500 1-2 WEEKS 100-5,000 2-3 WEEKS 500-10,000 3-4 WEEKS 1,000-50,000 4-5 WEEKS 10,000-100,000 5-6 WEEKS 15,000-200,000 6-8 WEEKS 10,000-100,000 2-3 MONTHS Performed By: #### P REGQNT #### [facility] [address] [place] [address] Dr. Aleah Peres TYPE AND SCREENon 09-15-2022 TYPE AND SCREEN Negative Normal [facility] Comment on above: Performed By: #### P REGQNT #### [facility] [address] [place] [address] Dr. Aleah Peres US PELVISon 09-15-2022 US PELVIS EXAMINATION: US PELVIS HISTORY: Spontaneous COMPARISON: No relevant comparison available. TECHNIQUE: Transabdominal and transvaginal sonographic examination. FINDINGS: UTERUS: Small amount of fluid within endometrial cavity. No visible retained products of conception. IMPRESSION: 1. No appreciable retained products of conception within uterine cavity. Electronically authenticated by: ASHLEY NOEL Date: 2022-09-15 15:42 Normal [facility] US PREG TVon 09-13-2022 US PREG [...] not identified. Normal [facility] CBC AUTO DIFFon 08-16-2022 BASO # 0.0 103/ul Normal 0.0-0.[address] [facility] Comment on above: Performed By: #### C BC #### [facility] [address] [place] [address] Dr. Aleah Peres Basophils/100 WBC (Bld) 0.4 % Normal 0.2-2.[address] [facility] Comment on above: Performed By: #### C BC #### [facility] [address] [place] [address] Dr. Aleah Peres EO # 0.1 103/ul Normal 0.0-0.[address] [facility] Comment on above: Performed By: #### C BC #### [facility] [address] [place] [address] Dr. Aleah Peres Eosinophils/100 WBC (Bld) 1.4 % Normal 0.9-7.[address] [facility] Comment on above: Performed By: #### C BC #### [facility] [address] [place] [address] Dr. Aleah Peres Erythrocyte distribution width (RBC) [Ratio] 13.6 % Normal 11.0-15.[address] [facility] Comment on above: Performed By: #### C BC #### [facility] [address] [place] [address] Dr. Aleah Peres Hematocrit (Bld) [Volume fraction] 32.4 % Critically low 36.0-48.[address] [facility] Comment on above: Performed By: #### C BC #### [facility] [address] [place] [address] Dr. Aleah Peres Hemoglobin (Bld) [Mass/Vol] 11.2 g/dL Critically low 12.0-16.0 [facility] Comment on above: Performed By: #### C BC #### [facility] [address] [place] [address] Dr. Aleah Peres IG # 0.02 10e3/ul Normal 0.00-0.03 [facility] Comment on above: Performed By: #### C BC #### [facility] [address] [place] [address] Dr. Aleah Peres IG % 0.3 % Normal 0.0-0.5 [facility] Comment on above: Performed By: #### C BC #### [facility] [address] [place] [address] Dr. Aleah Peres LYMPH # 2.4 103/ul Normal 1.2-3.[address] [facility] Comment on above: Performed By: #### C BC #### [facility] [address] [place] [address] Dr. Aleah Peres Lymphocytes/100 WBC (Bld) 32.3 % Normal 20.5-60.0 [facility] Comment on above: Performed By: #### C BC #### [facility] [address] [place] [address] Dr. Aleah Peres MANUAL DIFF REQ NO Normal [facility] Comment on above: Performed By: #### C BC #### [facility] [address] [place] [address] Dr. Aleah Peres MCH (RBC) [Entitic mass] 26.9 pg Normal 26.7-34.[address] [facility] Comment on above: Performed By: #### C BC #### [facility] [address] [place] [address] Dr. Aleah Peres MCHC (RBC) [Mass/Vol] 34.6 g/dL Normal 29.9-35.[address] [facility] Comment on above: Performed By: #### C BC #### [facility] [address] [id number] Aleah Peres MCV (RBC) [Entitic vol] 77.9 fL Critically low 81.0-99.0 [facility] Comment on above: Performed By: #### C BC #### [facility] [address] [address] [address] Aleah Peres MONO # 0.7 103/ul Normal 0.3-0.8 [facility] Comment on above: Performed By: #### C BC #### [facility] [address] [address] [address] Aleah Peres Monocytes/100 WBC (Bld) 9.1 % Normal 1.7-12.0 [facility] Comment on above: Performed By: #### C BC #### [facility] [address] [place] [address] Dr. Aleah Peres NEUT # 4.1 103/ul Normal 1.4-6.5 [facility] Comment on above: Performed By: #### C BC #### [facility] [address] [place] [address] Dr. Aleah Peres Neutrophils/100 WBC (Bld) 56.5 % Normal 43.0-75.[address] [facility] Comment on above: Performed By: #### C BC #### [facility] [address] [place] [address] Dr. Aleah Peres Platelet mean volume (Bld) [Entitic vol] 9.4 fL Critically low 9.5-13.[address] [facility] Comment on above: Performed By: #### C BC #### [facility] [address] [place] [address] Dr. Aleah Peres PLT 303 103/ul Normal 150-[address] [facility] Comment on above: Performed By: #### C BC #### [facility] [address] [address] [address] Aleah Peres RBC 4.16 106/ul Critically low 4.20-5.40 [facility] Comment on above: Performed By: #### C BC #### [facility] [address] [place] [address] Dr. Aleah Peres WBC 7.3 103/ul Normal 4.0-11.0 [facility] Comment on above: Performed By: #### C BC #### [facility] [address] [place] [address] Dr. Aleah Peres ER URINE PROFILEon 3 Bilirubin Ql (U) Negative Normal NEGATIVE [facility] Comment on above: Performed By: #### E RUR #### [facility] [address] [place] [address] Dr. Aelah Peres Clarity (U) CLEAR Normal CLEAR [facility] Comment on above: Performed By: #### E RUR #### [facility] [address] [place] [address] Dr. Aleah Peers Color (U) YELLOW Normal YELLOW [facility] Comment on above: Performed By: #### E RUR #### [facility] [address] [place] [address] Dr. Aleah OMALLEY A micrscopic examination will be performed if indicated. Normal [facility] Comment on above: Performed By: #### E RUR #### [facility] [address] [place] [address] Dr. Aleah Peres Glucose Ql (U) Negative Normal NEGATIVE [facility] Comment on above: Performed By: #### E RUR #### [facility] [address] [place] [address] Dr. Aleah Peres Hemoglobin Ql (U) Negative Normal NEGATIVE [facility] Comment on above: Performed By: #### E RUR #### [facility] [address] [place] [address] Dr. Aleah Peres Ketones Ql (U) Negative Normal NEGATIVE [facility] Comment on above: Performed By: #### E RUR #### [facility] [address] [place] [address] Dr. Aleah Peres LEUKOCYTES Negative Normal NEGATIVE [facility] Comment on above: Performed By: #### E RUR #### [facility] [address] [place] [address] Dr. Aleah Peres Nitrite Ql (U) Negative Normal NEGATIVE [facility] Comment on above: Performed By: #### E RUR #### [facility] [address] [place] [address] Dr. Aleah Peres pH (U) 6.0 [pH] Normal 5-9 [facility] Comment on above: Performed By: #### E RUR #### [facility] [address] [place] [address] Dr. Aleah Peres SPEC GRAVITY 1.020 Normal 1.005-<=1.025 [facility] Comment on above: Performed By: #### E RUR #### [facility] [address] [place] [address] Dr. Aleah Peres UA PROTEIN Negative Normal NEGATIVE/ TRACE [facility] Comment on above: Performed By: #### E RUR #### [facility] [address] [place] [address] Dr. Aleah Peres UR MICRO IND NOT INDICATED Normal [facility] Comment on above: Performed By: #### E RUR #### [facility] [address] [place] [address] Dr. Aleah Peres Urobilinogen Qn (U) 0.2 {Edmund'U}/dL Normal 0.2 - 1. 0 [facility] Comment on above: Performed By: #### E RUR #### [facility] [address] [place] [address] Dr. Aleah Peres PROF 14(COMP METB)on 023 Albumin [Mass/Vol] 3.0 g/dL Critically low 3.4-5.0 [facility] Comment on above: Performed By: #### C MP #### [facility] [address] [place] [address] Dr. Aleah Peres Albumin/Globulin [Mass ratio] 0.8 {ratio} Normal [facility] Comment on above: Performed By: #### C MP #### [facility] [address] [place] [address] Dr. Aleah Peres ALP [Catalytic activity/Vol] 52 U/L Normal 46-116 [facility] Comment on above: Performed By: #### C MP #### [facility] [address] [address] [address] Aleah Peres ALT [Catalytic activity/Vol] 15 U/L Normal 14-59 [facility] Comment on above: Performed By: #### C MP #### [facility] [address] [address] [address] Aleah Peres Anion gap [Moles/Vol] 10.2 mmol/L Normal [facility] Comment on above: Performed By: #### C MP #### [facility] [address] [address] [address] Aleah Peres AST [Catalytic activity/Vol] 13 U/L Critically low 15-37 [facility] Comment on above: Performed By: #### C MP #### [facility] [address] [address] [address] Aleah Peres Bilirubin [Mass/Vol] 0.2 mg/dL Normal 0.2-1.0 [facility] Comment on above: Performed By: #### C MP #### [facility] [address] [address] [address] Aleah Peres Calcium [Mass/Vol] 9.1 mg/dL Normal 8.5-10.1 [facility] Comment on above: Performed By: #### C MP #### [facility] [address] [address] [address] Aleah Peres Chloride [Moles/Vol] 100 mmol/L Normal 98-[address] [facility] Comment on above: Performed By: #### C MP #### [facility] [address] [address] [address] Aleah Peres CO2 [Moles/Vol] 28.8 mmol/L Normal 21.0-32.0 [facility] Comment on above: Performed By: #### C MP #### [facility] [address] [address] [address] Aleah Peres Creatinine [Mass/Vol] 0.56 mg/dL Normal 0.55-1.02 [facility] Comment on above: Performed By: #### C MP #### [facility] [address] [address] [address] Aleah Peres EGFR-AF ETHIOPIAN >60 Normal >=60 [facility] Comment on above: Performed By: #### C MP #### [facility] [address] [address] [address] Aleah Peres EGFR-NON AF ETHIOPIAN >60 Normal >=60 [facility] Comment on above: Performed By: #### C MP #### [facility] [address] [address] [address] Aleah Peres Globulin (S) [Mass/Vol] 3.9 g/dL Normal [facility] Comment on above: Performed By: #### C MP #### [facility] [address] [address] [address] Aleah Peres Glucose [Mass/Vol] 90 mg/dL Normal 74-106 [facility] Comment on above: Performed By: #### C MP #### [facility] [address] [address] [address] Aleah Peres Potassium [Moles/Vol] 4.0 mmol/L Normal 3.5-5.1 [facility] Comment on above: Performed By: #### C MP #### [facility] [address] [address] [address] Aleah Peres Protein [Mass/Vol] 6.9 g/dL Normal 6.4-8.[address] [facility] Comment on above: Performed By: #### C MP #### [facility] [address] [address] [address] Aleah Peres Sodium [Moles/Vol] 135 mmol/L Critically low 136-145 [facility] Comment on above: Performed By: #### C MP #### [facility] [address] [address] [address] Aleah Peres Urea nitrogen [Mass/Vol] 4.0 mg/dL Critically low 7.0-18.0 [facility] Comment on above: Performed By: #### C MP #### [facility] [address] [address] [address] Aleah Peres Urea nitrogen/Creatinine [Mass ratio] 7.1 mg/mg Normal [facility] Comment on above: Performed By: #### C MP #### [facility] [address] [place] [address] Dr. Aleah Peres PAP ACOG PANEL 2: 20 to 28on 08-02-2022 . . Normal [facility] Comment on above: Result Comment: Perf ormed at: WB Performed By: #### [id number] #### [facility] [address] [place] [address] Dr. Aleah Peres Age Gdln ACOG Testing [facility] Comment on above: Performed By: #### [id number] #### [facility] [address] [place] [address] Dr. Aleah Peres DIAGNOSIS: Comment Abnormal [facility] Comment on above: Result Comment: EPIT HELIAL CELL ABNORMALITY. LOW GRADE SQUAMOUS INTRAEPITHELIAL LESION (LSIL). Performed at: WB Performed By: #### [id number] #### [facility] [address] [place] [address] Dr. Aleah Peres Electronically signed by: Comment Normal [facility] Comment on above: Result Comment: Amena Arciniega MD, Pathologist Performed at: WB Performed By: #### [id number] #### [facility] [address] [place] [address] Dr. Aleah Peres Methodology: Comment [facility] Comment on above: Result Comment: This liquid based ThinPrep(R) pap test was screened with the use of an image guided system. Performed at: WB Performed By: #### [id number] #### [facility] [address] [place] [address] Dr. Aleah Peres Note: Comment Normal [facility] Comment on above: Result Comment: The Pap smear is a screening test designed to aid in the detection of premalignant and malignant conditions of the uterine cervix. It is not a diagnostic procedure and should not be used as the sole means of detecting cervical cancer. Both false-positive and false-negative reports do occur. . Performed at: WB Performed By: #### [id number] #### [facility] [address] [address] [address] Aleah Peres Pathologist Provided ICD10 Comment Normal [facility] Comment on above: Result Comment: [id number]. [id number] Performed at: WB Performed By: #### [id number] #### [facility] [address] [address] [address] Aleah Peres Performed by: Comment Normal [facility] Comment on above: Result Comment: Caitlyn Crenshaw, Community Outreach Specialist (ASCP) Performed at: BA Performed By: #### [id number] #### [facility] [address] [address] [address] Aleah Peres Recommendation: Comment Abnormal [facility] Comment on above: Result Comment: Sugg est follow up as clinically appropriate. Performed at: WB Performed By: #### [id number] #### [facility] [address] [place] [address] Dr. Aleah Peres Reflex Criteria: Comment Normal [facility] Comment on above: Result Comment: The HPV DNA reflex criteria were not met with this specimen result therefore, no HPV testing was performed. . Performed at: WB Performed By: #### [id number] #### [facility] [address] [place] [address] Dr. Aleah Peres Specimen adequacy: Comment Normal [facility] Comment on above: Result Comment: Sati sfactory for evaluation. Endocervical and/or squamous metaplastic cells (endocervical component) are present. Performed at: WB Performed By: #### [id number] #### [facility] [address] [place] [address] Dr. Aleah Peres Covid-19 PCR (CVDTB)on 05-25 SARS-CoV-2 (COVID-19) RNA MARY ELLEN+probe Ql (Unsp spec) Not detected Normal NOT DETECTED [facility] Comment on above: Result Comment: [...] for this test is supported by the [place] of Health and Human Service's declaration that [...] #### P REGQNT #### [facility] [address] [place] [address] Dr. Aleah Peres Vital Signs Date Time Vital Sign Value Performing Clinician Faci lity 12-11-2024 15:04-0400 Body mass index (BMI) [Ratio] 32.63 kg/m2 [employer] Work Phone: [facility] 12-11-2024 15:04-0400 Body weight 84.88 kg Andrzej Ayesha DO Work Phone: [facility] 12-11-2024 15:04-0400 Diastolic blood pressure 72 mm[Hg] Andrzej Ayesha DO Work Phone: [facility] 12-11-2024 15:04-0400 Systolic blood pressure 110 mm[Hg] Andrzej Ayesha DO Work Phone: [facility] 12-04-2024 13:53-0400 Body mass index (BMI) [Ratio] 32.34 kg/m2 Andrzej Ayesha DO Work Phone: [facility] 12-04-2024 13:53-0400 Body weight 84.14 kg Andrzej Ayesha DO Work Phone: [facility] 12-04-2024 13:53-0400 Diastolic blood pressure 70 mm[Hg] Andrzej Ayesha DO Work Phone: [facility] 12-04-2024 13:53-0400 Systolic blood pressure 116 mm[Hg] Andrzej Ayesha DO Work Phone: [facility] 11-21-2024 14:18-0400 Body mass index (BMI) [Ratio] 32.15 kg/m2 Henrique Burgerly ASSISTANT PUBLIC DEFENDER Work Phone: [facility] 11-21-2024 14:18-0400 Body weight 83.64 kg Henrique Tellezerly ASSISTANT PUBLIC DEFENDER Work Phone: [facility] 11-21-2024 14:06-0400 Diastolic blood pressure 70 mm[Hg] Henrique Tellezerly ASSISTANT PUBLIC DEFENDER Work Phone: [facility] 11-21-2024 14:06-0400 Systolic blood pressure 102 mm[Hg] Henrique Tellezerly ASSISTANT PUBLIC DEFENDER Work Phone: [facility] 11-07-2024 11:37-0400 Body mass index (BMI) [Ratio] 32.13 kg/m2 Andrzej Ayesha DO Work Phone: [facility] 11-07-2024 11:37-0400 Body weight 83.58 kg Andrzej Ayesha DO Work Phone: [facility] 11-07-2024 11:37-0400 Diastolic blood pressure 72 mm[Hg] Andrzej Ayesha DO Work Phone: [facility] 11-07-2024 11:37-0400 Systolic blood pressure 116 mm[Hg] Andrzej Ayesha DO Work Phone: [facility] 10-24-2024 11:24-0400 Body mass index (BMI) [Ratio] 32.34 kg/m2 Amy VILLATORO Work Phone: [facility] 10-24-2024 11:24-0400 Body weight 84.14 kg Amy VILLATORO Work Phone: [facility] 10-24-2024 11:24-0400 Diastolic blood pressure 66 mm[Hg] Amy VILLATORO Work Phone: [facility] 10-24-2024 11:24-0400 Systolic blood pressure 112 mm[Hg] Amy VILLATORO Work Phone: [facility] 10-09-2024 11:20-0400 Body mass index (BMI) [Ratio] 32.15 kg/m2 Andrzej Ayesha DO Work Phone: [facility] 10-09-2024 11:20-0400 Body weight 83.64 kg Andrzej Ayesha DO Work Phone: [facility] 10-09-2024 11:20-0400 Diastolic blood pressure 68 mm[Hg] Andrzej Ayesha DO Work Phone: [facility] 10-09-2024 11:20-0400 Systolic blood pressure 102 mm[Hg] Andrzej Ayesha DO Work Phone: [facility] 09-14-2024 10:29-0500 Body height 160 cm Los Hollins MD Work Phone: [facility] 09-14-2024 10:29-0500 Body mass index (BMI) [Ratio] 32.24 kg/m2 Los Hollins MD Work Phone: [facility] 09-14-2024 10:29-0500 Body weight 82.56 kg Los Hollins MD Work Phone: [facility] 09-14-2024 10:29-0500 Diastolic blood pressure 59 mm[Hg] Los Hollins MD Work Phone: [facility] 09-14-2024 10:29-0500 Heart rate 80 /min Los Hollins MD Work Phone: [facility] 09-14-2024 10:29-0500 Systolic blood pressure 97 mm[Hg] Los Hollins MD Work Phone: [facility] 09-11-2024 11:24-0500 Body mass index (BMI) [Ratio] 31.58 kg/m2 Amy VILLATORO Work Phone: [facility] 09-11-2024 11:24-0500 Body weight 82.16 kg Amy VILLATORO Work Phone: [facility] 09-11-2024 11:24-0500 Diastolic blood pressure 70 mm[Hg] [place] PA Work Phone: [facility] 09-11-2024 11:24-0500 Systolic blood pressure 98 mm[Hg] Mis PA Work Phone: [facility] 08-14-2024 12:05-0500 Body mass index (BMI) [Ratio] 31.91 kg/m2 Andrzej Ayesha DO Work Phone: [facility] 08-14-2024 12:05-0500 Body weight 83.01 kg Andrzej Ayesha DO Work Phone: [facility] 08-14-2024 12:05-0500 Diastolic blood pressure 60 mm[Hg] Andrzej Ayesha DO Work Phone: [facility] 08-14-2024 12:05-0500 Systolic blood pressure 110 mm[Hg] Andrzej Ayesha DO Work Phone: [facility] 07-16-2024 10:25-0500 Body mass index (BMI) [Ratio] 30.71 kg/m2 [place] PA Work Phone: [facility] 07-16-2024 10:25-0500 Body weight 79.89 kg [place] PA Work Phone: [facility] 07-16-2024 10:25-0500 Diastolic blood pressure 70 mm[Hg] [place] PA Work Phone: [facility] 07-16-2024 10:25-0500 Systolic blood pressure 120 mm[Hg] Mis PA Work Phone: [facility] 06-07-2024 13:39-0500 Body mass index (BMI) [Ratio] 31.35 kg/m2 [facility] 06-07-2024 13:39-0500 Body weight 81.56 kg [facility] 06-07-2024 13:39-0500 Diastolic blood pressure 70 mm[Hg] [facility] 06-07-2024 13:39-0500 Systolic blood pressure 118 mm[Hg] [facility] 05-31-2024 09:40-0500 Body mass index (BMI) [Ratio] 30.86 kg/m2 Amy VILLATORO Work Phone: [facility] 05-31-2024 09:40-0500 Body weight 80.29 kg Amy VILLATORO Work Phone: [facility] 05-31-2024 09:40-0500 Diastolic blood pressure 72 mm[Hg] Amy VILLATORO Work Phone: [facility] 05-31-2024 09:40-0500 Systolic blood pressure 118 mm[Hg] Amy VILLATORO Work Phone: [facility] 08-31-2023 13:43-0500 Body mass index (BMI) [Ratio] 33.2 kg/m2 Andrzej Ayesha DO Work Phone: [facility] 08-31-2023 13:43-0500 Body weight 86.36 kg Andrzej Ayesha DO Work Phone: [facility] 08-31-2023 13:43-0500 Diastolic blood pressure 70 mm[Hg] Andrzej Ayesha DO Work Phone: [facility] 08-31-2023 13:43-0500 Systolic blood pressure 114 mm[Hg] Andrzje Ayesha DO Work Phone: [facility] Healthcare Encounters Encounter Date Encounter Type Care Provider Facility Start: 12-11-2024 End: 12-11-2024 ambulatory ANDRZEJ AYESHA Not Available Start: 12-11-2024 End: 12-11-2024 Office outpatient visit 15 minutes Andrzej Ayesha DO Work Phone: [facility] Comment on above: 35 weeks gestation o f ; Third trimester Start: 12-11-2024 End: 12-11-2024 Bamboo flowsheet Andrzej Ayesha DO Work Phone: [facility] Start: 12-11-2024 End: 12-11-2024 Bamboo flowsheet Andrzej Ayesha DO Work Phone: [facility] Start: 12-11-2024 End: 12-11-2024 Clinisync Result Encounter Andrzej Ayesha DO Work Phone: [facility] External Department Unsolicited Start: 12-04-2024 End: 12-04-2024 Bamboo flowsheet Andrzej Ayehsa DO Work Phone: [facility] Start: [...] Unsolicited Start: 11-22-2024 End: 11-22-2024 ambulatory ANDRZEJ [facility] Start: 11-21-2024 End: 11-21-2024 Bamboo flowsheet Henrique Wang ASSISTANT PUBLIC DEFENDER Work Phone: [facility] Start: 11-21-2024 End: 11-21-2024 Bamboo flowsheet Henrique Felipe ASSISTANT PUBLIC DEFENDER Work Phone: [facility] Start: 11-21-2024 End: 11-21-2024 ambulatory HENRIQUE FELIPE Not Available Start: 11-21-2024 End: 11-21-2024 flow sheet Henrique Wang ASSISTANT PUBLIC DEFENDER Work Phone: [facility] Comment on [...] Telephone encounter Valerie Ramirez [facility] Start: 10-24-2024 End: 10-24-2024 Office outpatient visit 15 minutes Amy VILLATORO Work Phone: [facility] Comment on above: Third trimester preg hanh; 29 weeks gestation of Start: 10-24-2024 End: 10-24-2024 ambulatory AMY DOBBINS Not Available Start: 10-23-2024 End: 10-23-2024 ambulatory NADRZEJ R AYESHA [facility] Start: 10-15-2024 End: 10-15-2024 Clinisync Result [...] Hollins MD Work Phone: [facility] Comment on above: 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) Start: 09-14-2024 End: 09-14-2024 Orders Only Sharla Dunham RN [facility] Comment on above: Short cervix affecti ng (Primary Dx); Encounter for repeat ultrasound of pyelectasis, antepartum, single or unspecified fetus Start: 09-13-2024 End: 09-14-2024 Chart abstracting Los Hollins MD Work Phone: [facility] Start: 09-11-2024 End: 09-11-2024 ambulatory AMY DOBBINS [...] Bamboo flowsheet Andrzej Ayesha DO Work Phone: [facility] Start: 08-14-2024 End: 08-14-2024 Bamboo flowsheet Andrzej Ayesha DO Work Phone: [facility] Start: 08-14-2024 End: 08-14-2024 Office outpatient visit 15 minutes Andrzej Ayesha DO Work Phone: [facility] Comment on above: 18 weeks gestation o f ; Second trimester ; Screening, , for anatomic survey; Other headache syndrome; Constipation, unspecified constipation type Start: 08-14-2024 End: 08-14-2024 ambulatory ANDRZEJ AYESHA Not Available Start: 08-01-2024 End: 08-01-2024 ambulatory ANDRZEJ AYESHA Not Available Start: 07-16-2024 End: 07-16-2024 Bamboo flowsheet Amy VILLATORO Work Phone: [facility] Start: 07-16-2024 End: 07-24-2024 Bamboo flowsheet Amy VILLATORO Work Phone: [facility] Start: 07-16-2024 End: 07-24-2024 Clinisync Result Encounter Amy VILLATORO Work Phone: [facility] External Department Unsolicited Start: 07-16-2024 End: 07-16-2024 ambulatory AMY DOBBINS Not Available Start: 07-16-2024 End: 07-16-2024 Patient encounter procedure Amy VILLATORO Work Phone: [facility] Healthcare Start: 07-16-2024 End: 07-16-2024 Periodic preventive med est patient 18-39 yrs Amy VILLATORO Work Phone: [facility] Comment on above: [...] procedure Navneet Rodriguez DO Work Phone: [facility] Comment on above: Encounter for [...] other preprocedural examination DR ANDRZEJ HODGE . [facility] Start: 09-15-2022 End: 09-16-2022 ambulatory ANDRZEJ HODGE Facility:[facility] Start: [...] Date Procedure Procedure Detail Performing Clinician Start: 12-11-2024 [facility] UA (CLEAN/CATCH) SLIP LASTER/MICRO IF IND. Andrzej Ayesha DO Work Phone: Start: 12-11-2024 Urnls dip stick/tabl et rgnt non-auto w/o micrscp Andrzej Ayesha DO Work Phone: Start: 11-26-2024 [facility] UA (CLEAN/CATCH) SLIP LASTER/MICRO IF IND. Andrzej Ayesha DO Work Phone: Start: 11-07-2024 Urnls dip stick/tabl et rgnt non-auto w/o micrscp Andrzej Ayesha DO Work Phone: Start: 10-15-2024 [facility] UA (CLEAN/CATCH) SLIP LASTER/MICRO IF IND. Andrzej Ayesha DO Work Phone: [...] Activity Detail Author Start: 07-16-2027 Screening for malign ant neoplasm of cervix Pap Smear [facility] Start: 09-14-2025 Adult BMI Screening Adult BMI Screen ing [facility] Start: 09-14-2025 Tobacco Screening Tobacco Screening [facility] Start: 09-14-2025 End: 09-14-2025 US MFM with or without consult US MFM with or without consult Imaging Routine Short cervix affecting Encounter for repeat ultrasound of pyelectasis, antepartum, single or unspecified fetus Expected: 09/14/2025 (Approximate), Expires: 09/14/2025 [facility] Work Phone: Comment on above: Expected: 09/14/2025 (Approximate), Expires: 09/14/2025 Start: 03-25-2025 Influenza vaccination Influenza Vacc ine [facility] Start: 12-20-2024 End: 12-20-2024 Patient encounter procedure 12/20/2024 9:50 AM EDT Routine [facility] [address] [place] [address] Amy Dobbins PA [address] [place], [place] [id number] [facility] Start: 12-11-2024 End: 12-11-2024 Patient encounter procedure 12/11/2024 2:30 PM EDT Routine [facility] [address] [place] [address] Andrzej Hodge, DO [address] [place], [place] [id number] [facility] Start: 12-11-2024 End: 12-11-2025 CULTURE, GROUP B STREP WITH SUSCEPTIBLITY CULTURE, GROUP B STREP WITH SUSCEPTIBLITY Lab Routine Third trimester Expected: 12/11/2024, Expires: 12/11/2025 [facility] Work Phone: Comment on above: Expected: 12/11/2024 , Expires: 12/11/2025 Start: 12-04-2024 End: 12-04-2024 Patient encounter procedure 12/04/2024 1:40 PM EDT Routine [facility] [address] [place] [address] Andrzej Hodge, DO [address] [place], [place] [id number] [facility] Start: 11-21-2024 End: 11-21-2024 Patient encounter procedure 11/21/2024 1:50 PM EDT Routine [facility] [address] [place] [phone] Amy Dobbins, PA [address] [place] [address] [facility] Start: 11-07-2024 End: 11-07-2024 Patient encounter procedure 11/07/2024 11:20 AM EDT Routine [facility] [address] [place] [id number] Andrzej Hodge, DO [address] [place] [address] [facility] Start: 10-24-2024 End: 10-24-2024 Patient encounter procedure [facility] Comment on above: Arrived Start: 10-23-2024 End: 10-23-2024 Patient encounter procedure 10/23/2024 2:15 PM EDT Appointment [facility] - Ultrasound [address] [place] [address] [facility] - Ultrasound Start: 10-09-2024 End: 10-09-2024 Patient encounter procedure 10/09/2024 11:10 AM EDT Routine [facility] [address] [place] [phone] Andrzej Hodge, DO [address] [place] [address] [facility] Start: 09-14-2024 End: 09-14-2024 Patient encounter procedure 09/14/2024 11:30 AM EST Office Visit [facility] [address] [place] [id number] Los Hollins MD [address] [place] [address] Arrived [facility] Comment on above: Arrived Start: 09-12-2024 End: 09-12-2024 Patient encounter procedure 09/12/2024 10:30 AM EST Routine [facility] [address] [place] [address] Amy Dobbins PA [address] [place] [address] [place], [place] [id number] [facility] Start: 09-11-2024 End: 09-11-2025 CBC panel - Blood by Automated count CBC Lab Routine Diabetes mellitus screening Expected: 09/11/2024 (Approximate), Expires: 09/11/2025 [facility] Healthcare Work Phone: Comment on above: Expected: 09/11/2024 (Approximate), Expires: 09/11/2025 Start: 09-11-2024 End: 09-11-2025 Measurement of glucose 1 hour after glucose challenge for glucose tolerance test Glucose tolerance, 1 hour Lab Routine Diabetes mellitus screening Expected: 09/11/2024 (Approximate), Expires: 09/11/2025 [facility] Comment on above: Expected: 09/11/2024 (Approximate), Expires: 09/11/2025 Start: 09-11-2024 End: 09-11-2024 Patient encounter procedure 09/11/2024 10:20 AM EST Routine [facility] [address] [place] [address] Amy Dobbins PA [facility] [address] [place], [place] [id number] [facility] Start: 09-11-2024 End: 09-11-2024 Professional / ancillary services management 09/11/2024 10:00 AM EST Ancillary Procedure [facility] [address] [place], [place] [address] [address] [facility] Start: 08-28-2024 End: 08-28-2024 Professional / ancillary services management 08/28/2024 1:00 PM EST Ancillary Procedure [facility] [address] [place] [address] [facility] Start: 08-14-2024 End: 10-12-2024 [...] EST Ancillary Procedure [facility] [address] [place] [phone] [facility] Start: 07-16-2024 End: 08-16-2024 [...] cervical length Expected: 07/16/2024 (Approximate), Expires: 07/16/2025 [facility] Healthcare Comment on above: Expected: 07/16/2024 (Approximate), Expires: 07/16/2025 Start: 07-09-2024 End: 07-09-2024 Patient encounter procedure 07/09/2024 2:50 PM EST Routine [facility] [address] [place] [phone] Andrzej Hodge DO [address] [facility] [place] [address] [facility] Start: 06-07-2024 End: 06-07-2025 ABO/Rh ABO/Rh Lab Routine Missed menses , unspecified gestational age Expected: 06/07/2024 (Approximate), Expires: 06/07/2025 [facility] Healthcare Comment on above: Expected: 06/07/2024 [...] first trimester Expected: 06/07/2024 (Approximate), Expires: 06/07/2025 [facility] Healthcare Comment on above: Expected: 06/07/2024 (Approximate), Expires: 06/07/2025 Start: 06-07-2024 End: 06-07-2024 ambulatory 06/07/2024 1:30 PM EST Initial [facility] [address] [place] [phone] [facility] Start: 06-07-2024 End: 06-07-2024 Professional / ancillary services management 06/07/2024 1:00 PM EST Ancillary Procedure [facility] [address] [place] [address] [facility] Start: 05-21-2024 End: 05-21-2024 Patient encounter procedure 05/21/2024 11:00 AM EDT Office Visit [facility] [address] [place] [phone] Amy Dobbins PA [address] [facility] [place] [address] [facility] Start: 03-25-2024 Influenza vaccination Influenza Vacc ine [facility] Start: 09-14-2023 End: 09-14-2023 Patient encounter procedure 09/14/2023 3:50 PM EST Routine [facility] [address] [place] [phone] Amy Dobbins PA [address] [facility] [place] [address] [facility] Start: 2018 DTaP,Tdap and Td Vaccines (1 - Tdap) DTaP,Tdap and Td Vaccines (1 - Tdap) [facility] Start: 2017 Adult BMI Follow Up Plan Adult BMI Follow Up Plan [facility] Start: 2017 Adult BMI Screening Adult BMI Screen ing [facility] Start: 2011 Depression Screening Depression Scre ening [facility] Start: 2011 Tobacco Screening Tobacco Screening [facility] Bacteria identified in Urine by Culture Urine culture Microbiology Routine Missed menses Ordered: 06/07/2024 [facility] Healthcare Comment on above: Ordered: 06/07/2024 Bacteria identified in Urine by Culture Urine culture Microbiology Routine BV (bacterial vaginosis) Ordered: 09/11/2024 [facility] Comment on above: Ordered: 09/11/2024 CBC W Auto Different ial panel - Blood CBC and differential Lab Routine Missed menses , unspecified gestational age Ordered: 06/07/2024 [facility] Comment on above: Ordered: 06/07/2024 CHLAMYDIA TRACHOMATI S (GENITO/STI) CHLAMYDIA TRACHOMATIS (GENITO/STI) Lab Routine Second trimester Ordered: 07/16/2024 [facility] Comment on above: Ordered: 07/16/2024 Cytology Cervical or vaginal smear or scraping study Pap Smear Pathology and Cytology Routine Well woman exam with routine gynecological exam 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 Second trimester Ordered: 07/16/2024 [facility] Work Phone: Comment on above: Ordered: 07/16/2024 Hemoglobin A1c/Hemoglobin.total in Blood Hemoglobin A1c Lab Routine Missed menses , unspecified gestational age Ordered: 06/07/2024 [facility] Comment on above: Ordered: 06/07/2024 Hepatitis B virus surface Ag [Presence] in Serum or Plasma by Immunoassay Hepatitis B surface antigen Lab Routine Missed menses , unspecified gestational age Ordered: 06/07/2024 [facility] Comment on above: Ordered: 06/07/2024 Hepatitis C virus Ab [Presence] in Serum or Plasma by Immunoassay Hepatitis C antibody Lab Routine Missed menses , unspecified gestational age Ordered: 06/07/2024 [facility] Comment on above: Ordered: 06/07/2024 HIV-1/HIV-2 antigen/antibody combination immunoassay HIV-1 and HIV-2 antibodies Lab Routine Missed menses , unspecified gestational age Ordered: 06/07/2024 [facility] Comment on above: Ordered: 06/07/2024 Neisseria gonorrhoea e DNA [Presence] in Unspecified specimen by MARY ELLEN with probe detection Neisseria gonorrhea DNA probe, direct Lab Routine Second trimester Ordered: 07/16/2024 [facility] Comment on above: Ordered: 07/16/2024 Reagin Ab [Presence] in Serum by RPR RPR Lab Routine Missed menses , unspecified gestational age Ordered: 06/07/2024 [facility] Comment on above: Ordered: 06/07/2024 Rubella antibody, IgG Rubella an tibody, IgG Lab Routine Missed menses , unspecified gestational age Ordered: 06/07/2024 [facility] Comment on above: Ordered: 06/07/2024 SURESWAB(R) ADVANCED VAGINITIS PLUS, TMA SURESWAB(R) ADVANCED VAGINITIS PLUS, TMA Pathology and Cytology Routine Second trimester Ordered: 07/16/2024 [facility] Comment on above: Ordered: 07/16/2024 Payers Date Payer Category [facility]ayer [employer] [facility] Managed Care - Other ANTHEM [id number]. [id number] 2022 Medicaid [id number]. 1.13.693.2. [id number] 2022 Medicaid [id number] 1999 Unknown [id number] 2.16.840.1.003172.3.579.2. 593 1999 Unknown [id number] 2.16.840.1.986876.3.579.2. 593 1999 Unknown [id number] 2.16.840.1.954051.3.579.2. 593 1999 Unknown [id number] 2.16.840.1.063736.3.579.2. 593 1999 Unknown [id number] 2.16.840.1.473479.3.579.2. 593 1999 Unknown [id number] 2.16.840.1.122600.3.579.2. 593 1999 Unknown [id number] 2.16.840.1.202769.3.579.2. 593 1999 Unknown [id number] 2.16.840.1.806366.3.579.2. 593 1999 Unknown [id number] 2.16.840.1.301880.3.579.2. 593 1999 Unknown [id number] 2.16.840.1.191613.3.579.2. 593 1999 Unknown [id number] 2.16.840.1.985878.3.579.2. 1286 1999 Unknown [id number] 2.16.840.1.690395.3.579.2. 1286 1999 Unknown [id number] 2.16.840.1.536390.3.579.2. 1286 1999 Unknown [id number] 2.16.840.1.286298.3.579.2. 1286 1999 Unknown [id number] 2.16.840.1.607924.3.579.2. 1259 1999 Unknown [id number] 2.16.840.1.683493.3.579.2. 1259 1999 Unknown [id number] 2.16840.1.712581.3.579.2. 1259 1999 Unknown [id number] 2.16.840.1.517564.3.579.2. 1259 1999 Unknown [id number] 2.16.840.1.847368.3.579.2. 1259 1999 Unknown [id number] 2.16.840.1.952971.3.579.2. 1259 1999 Unknown [id number] 2.16.840.1.372939.3.579.2. 1259 1999 Unknown [id number] 2.16.840.1.923655.3.579.2. 1259 1999 Unknown [id number] 2.16.840.1.078439.3.579.2. 9 1999 Unknown [id number] 2.16.840.1.275353.3.579.2. 1259 1999 Unknown [id number] 2.16.840.1.565883.3.579.2. 9 1999 Unknown [id number] 2.16.840.1.343189.3.579.2. 1259 1999 Unknown [id number] 2.16.840.1.239344.3.579.2. 9 1999 Unknown [id number] 2.16.840.1.136085.3.579.2. 9 1999 Unknown [id number] 2.16.840.1.562206.3.579.2. 1259 1959 Unknown [id number] 1959 Unknown [id number] Social History Date Type Detail Facility Start: 04-18-2023 End: 09-13-2024 Tobacco smoking status NYIS Never smoked tobacco [facility] Start: 08-31-2023 End: 12-11-2024 Alcohol intake Lifetime non-drinker (finding) [facility] Start: 06-13-2023 End: 05-31-2024 History of Social function [facility] Start: 06-13-2023 End: 05-31-2024 Tobacco use panel [facility] Start: 04-18-2023 Alcohol Comment caffeine: none [facility] Start: 02-17-2023 [facility] Start: 2000 Sex Assigned At Not on file [facility] Start: 09-13-2024 Sex Female (finding) [facility] Within the past 12 months we worried whether our food would run out before we got money to buy more. Never [facility] Clinical Notes 09-15-2022 to 12-11-2024 Sharon Hare LPN - 12/11/2024 2:30 PM Sharlene Hare LPN - 12/04/2024 1:40 PM EDTHenrique Wang, ED - 11/21/2024 1:50 PM Sharlene Hare LPN - 11/07/2024 11:20 AM EDT Note Date & Type Note Facility 12-11-2024 History of Presen t illness Narrative Reason [...] nursing note reviewed. Exam conducted with a supervisor mold cleaning and storage present. Vitals: Estimated body mass index is 32.63 kg/m as calculated from the following: Height [...] Andrzej Hodge DO documented in this encounter [facility] 12-04-2024 History of Presen t illness Narrative Reason for Appointment: Patient ID: Dashawnosofie Higgins is a 24 y.o. female who presents for Routine Visit Patient presents today for Return OB appointment. MEDICATIONS Current Outpatient Medications Medication Instructions iron polysaccharides (PROFE) 391.3 mg, Oral, Daily magnesium oxide (MAG-OX) 400 mg, Oral, Daily MV-Min-Fe Fum-FA-DHA ([facility] PO) 1 each, Daily ALLERGIES [...] nursing note reviewed. Exam conducted with a supervisor mold cleaning and storage present. Vitals: Estimated body mass index is [...] Andrzej Hodge DO documented in this encounter [facility] 11-21-2024 History of Presen t illness [...] Pap smear of cervix 07/21/202207/14 (negative0 , 12/20 (LGSIL), 11/12 (negative) Social History Tobacco Use [...] nursing note reviewed. Exam conducted with a supervisor mold cleaning and storage present. Vitals: Estimated body mass index is [...] Henrique Wang NP documented in this encounter [facility] 11-07-2024 History of Presen t illness [...] nursing note reviewed. Exam conducted with a supervisor mold cleaning and storage present. Vitals: Estimated body mass index is [...] Andrzej Hodge DO documented in this encounter [facility] 10-24-2024 History of Presen t illness Narrative Reason for Appointment: Patient ID: Dashawnoun Ronaldo is a 24 y.o. female who presents [...] of: SHAUNA Rizvi documented in this encounter [facility] 10-24-2024 Miscellaneous Notes Formattin g of this note might be different from the original. I called pt and left a message about scheduling an apt in 4 weeks, I asked her to call me back documented in this encounter [facility] 10-24-2024 Telephone encount er Note I called pt and left a message about scheduling an apt in 4 weeks, I asked her to call me back [facility] 10-09-2024 History of Presen t illness Narrative Reason for Appointment: Patient ID: Alexandra Higgins is a 24 y.o. female who presents for Routine Visit Patient presents today for Return OB appointment. MEDICATIONS Current Outpatient Medications Medication Instructions docusate sodium (COLACE) 100 mg, Oral, 2 times daily PRN magnesium oxide (MAG-OX) 400 mg, Oral, Daily MV-Min-Fe Fum-FA-DHA ([facility] SPECIALIST PO) 1 each, Daily ALLERGIES Allergies [...] nursing note reviewed. Exam conducted with a supervisor mold cleaning and storage present. Vitals: Estimated body mass index is [...] was discussed/given. Pt having cervical length with [facility] [employer] [facility] in [place] coming up. Pt states its getting harder at work. No orders of the defined types were placed in this encounter. Follow Up: Patient is to return to office in 2 week for routine OB appointment. Documented by Sharon Hare LPN on behalf of: Andrzej Hodge DO documented in this encounter [facility] 09-14-2024 History of Presen t illness [...] Yes Have you been seen here at [facility] in a previous ? No Recent ER visits or hospitalizations? ER visit within the last month, was vomiting blood (was old it was just irritation from vomiting so much) Bring blood sugar log or meter with you today? (Please bring them with you for every visit at [facility]) N/A Flu vaccine (May-September)? 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 Patient does have ultrasound scheduled with us. Thank you for allowing me to participate in Alexandra Higgins . If there any questions please do not hesitate to contact us. Sincerely, LOS HOLLINS MD documented in this encounter [facility] 09-11-2024 History of Presen t illness [...] 2.0 cm. We will refer patient to [facility] for further evaluation. Pt also complains of odor with discharge with progesterone, we will send in flagyl Documented by SHAUNA Rizvi on behalf of: SHAUNA Rizvi documented in this encounter [facility] 08-14-2024 History of Presen t illness [...] nursing note reviewed. Exam conducted with a supervisor mold cleaning and storage present. Vitals: Estimated body mass index is [...] Andrzej Hodge DO documented in this encounter [facility] 07-16-2024 History of Presen t illness [...] nursing note reviewed. Exam conducted with a supervisor mold cleaning and storage present. Vitals: Estimated body mass index is [...] of: SHAUNA Rizvi documented in this encounter [facility] 06-07-2024 History of Presen t illness [...] or undercooked meat, and [facility]. Patient has also been advised to not [...] Brianna Perry LPN documented in this encounter [facility] 05-31-2024 History of Presen t illness [...] of: SHAUNA Rizvi documented in this encounter [facility] 03-06-2024 History of Presen t illness Narrative Pt presents today for a pre-employment drug screen, BAT, Physical Exam, Audiogram, and PFT for [place]. Pt verified by photo ID. documented in this encounter [facility] 08-31-2023 History of Presen t illness [...] nursing note reviewed. Exam conducted with a supervisor mold cleaning and storage present. Vitals: Estimated body mass index is [...] Andrzej Hodge DO documented in this encounter [facility] 09-15-2022 Note EXAMINATION: US PREG TV [...] Date: 2022-09-15 07:[address] [facility] 09-15-2022 Note OPERATIVE NOTE OPERATION DATE: 09/15/2022 PROCEDURE: Suction D AND C. PREOPERATIVE DIAGNOSIS: First trimester missed at 10 weeks. POSTOPERATIVE DIAGNOSIS: First trimester missed at 10 weeks. ANESTHESIA: General. SURGEON: Andrzej Hodge D.O. CABLE SPLICER HELPER: None. FINDINGS: Products of conception. SPECIMEN: [...] products of conception were removed using an 9-Amharic suction curette. Excellent hemostasis was noted. The patient tolerated the procedure well. Sponge, lap, and needle counts were correct x 2. All instruments were then removed from the patient's vagina. The patient was taken to the Recovery Room in stable condition. ?? [facility] Evaluation note Diagnosis Third trimester state, [...] or unspecified fetus [facility] Short cervix affecting with delivery- Primary Cervical shortening, delivered, with or without mention of antepartum condition [facility] Diagnosis Second trimester state, [...] [facility] Diagnosis 35 weeks gestation of Third trimester state, incidental documented in this encounter [facility]ructionsNot on filedocumented in this [facility]ructionsNot on filedocumented in this [facility] System[facility]ructionsNot on filedocumented in this encounterPro[facility] SystemInstructionsNot on filedocumented in this [facility] Summary Purpose Family History No [...] section and content) DATE CREATED AUTHOR 10/12/2022 [facility] DATE CREATED AUTHOR AUTHOR'S ORGANIZ ATION 12/08/2022 [facility] DATE CREATED AUTHOR AUTHOR'S ORGANIZ ATION 09/16/2024 [facility] DATE CREATED AUTHOR AUTHOR'S ORGANIZ ATION 10/26/2024 [facility] DATE CREATED AUTHOR AUTHOR'S ORGANIZ ATION 11/27/2024 [facility] DATE CREATED AUTHOR AUTHOR'S ORGANIZ ATION 12/13/2024 [facility] EPIC Reason for Visit [...] BE BASED ON THE PRIMARY CLINICAL RECORDS. [employer] provides no warranty or guarantee of the accuracy or completeness of information in this document.
--- OUTSIDE RECORDS SUMMARY | 2024-12-19 22:53 | XMS_ITS | Encounter Summary ---
Author Organization [facility] Address [address] [place] [address] Care Team Providers Care Solutions Executive Security Name Role Phone Unavailable Primary Care Provider Unavailabl e Encounter Details Date Type Department Care Team (Late st Contact Info) Description 12/11/2024 Bamboo flowsheet [facility] OB [address] [place] [address] Andrzej Hodge DO [address] [place], [place] [address] Social History Tobacco Use Types Packs/Day Years [...] Description 12/20/2024 9:50 AM EDT Routine [facility] [address] [place] [address] Amy Abebe PA [address] [place] [address] documented as of this encounter Visit Diagnoses Not on filedocumented in this encounter
--- OUTSIDE RECORDS SUMMARY | 2024-12-19 22:53 | XMS_ITS | Clinical Summary ---
Author Organization [facility] Address [address] [place] [address] Care Team Providers Care Supervisor Opening And Picking Name Role Phone Unavailable Primary Care Provider Unavailabl e Allergies Active Allergy Reactions Criticality Noted Date Comments Pollen Extract 09/14/2024 Other Reaction(s): Eye Swelling Medications MV-Min-Fe Fum-FA-DHA ([facility] SPECIALIST PO) Take 1 each by mouth in the morning. 025 Discontinued magnesium oxide (Mag-Ox) 400 MG tabletIndications:O ther headache syndrome Take 1 tablet (400 mg) by mouth Daily 30 tablet 11 08/14/19 25 025 Discontinued iron polysaccharides (ProFe) 391.3 (180 Fe) MG capsuleIndications: Other iron deficiency anemia Take 1 capsule (391.3 mg) by mouth Daily 30 capsule 6 11/23/19 25 025 Discontinued cephalexin (Keflex) 500 MG capsuleIndications: Urinary tract infection without hematuria, site unspecified Take 1 capsule (500 mg) by mouth in the morning and 1 capsule (500 mg) in the evening and 1 capsule (500 mg) before bedtime. Do all this for 7 days. 21 capsule 11/27/19 25 025 Discontinued Active Problems Problem Noted Date Diagnosed Date Amenorrhea 10/26/2023 Missed period 10/26/2023 Gynecological disease 10/26/2023 Low grade squamous intraepit helial lesion (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 10/26/2023 Obesity 10/26/2023 Estimated Date of Delivery Comme nts Yes 01/09/2025 Based on last me nstrual period of 04/04/2024 Encounters Date Type Department Care Team Description 12/11/2024 2:30 PM EDT Routine [facility] [address] [place] [place] [address] Andrzej Hodge, DO 35 weeks gestation of ; Third trimester 12/11/2024 Clinisync Result Encounter [facility] External Department Unsolicited Andrzej Hodge, DO 12/11/2024 Bamboo flowsheet [facility] [address] [place] [place] [address] Andrzej Hodge, DO 12/04/2024 1:40 PM EDT Routine [facility] [address] [place] [address] Andrzej Hodge, DO Third trimester ; 34 weeks gestation of 12/04/2024 Bamboo flowsheet [facility] [address] [place] [address] Andrzej Hodge, DO 11/27/2024 Telephone [facility] [address] [place] [address] Andrzej Hodge, DO 11/26/2024 Clinisync Result Encounter [facility] External Department Unsolicited Andrzej Hodge, DO 11/26/2024 Telephone [facility] [address] [place] [place] [address] Andrzej Hodge, DO 11/22/2024 Telephone [facility] [address] [place] [place] [address] Mitzi Yusuf LPN 11/21/2024 1:50 PM EDT Routine [facility] [address] [place] [place] [address] Cinthia Wang, ED Third trimester ; 33 weeks gestation of 11/21/2024 Bamboo flowsheet [facility] [address] [place] [place] [address] Cinthia Wang NP 11/07/2024 11:20 AM EDT Routine [facility] [address] [place] [place] [address] Andrzej Hodge, Third trimester ; 31 weeks gestation of ; Short cervix affecting 11/07/2024 Bamboo flowsheet [facility] [address] [place] [address] Andrzej Hodge, 10/24/2024 11:30 AM EDT Routine [facility] [address] [place] [address] Amy Abebe PA Third trimester ; 29 weeks gestation of 10/24/2024 Abstract [facility] [address] [place] [place] [address] Andrzej Hodge, 10/24/2024 Bamboo flowsheet [facility] [address] [place] [address] Amy Abebe PA 10/23/2024 Travel 10/15/2024 Clinisync Result Encounter [facility] External Department Unsolicited Andrzej Hodge, 10/15/2024 Telephone [facility] [address] [place] [address] Andrzej Hodge, 10/10/2024 Clinisync Result Encounter [facility] External Department Unsolicited Amy Abebe PA 10/09/2024 11:10 AM EDT Routine [facility] [address] [place] [address] Andrzej Hodge, Second trimester ; 26 weeks gestation of 10/09/2024 Bamboo flowsheet [facility] [address] [place] [address] Andrzej Hodge, from Last 3 Months Family History Medical [...] oz) 12/11/2024 3:04 P M EDT Height 161.3 cm (5' 3.5 ) 11/10/2022 12:00 PM ED T Body Mass Index 32.63 11/10/2022 12:00 PM EDT Plan of Treatment Upcoming Encounters Date Type Department Care Team (Late st Contact Info) Description 12/20/2024 9:50 AM EDT Routine [facility] [address] [place] [address] Amy Abebe PA [address] [facility] [place], [place] [id number] Procedures Procedure Name Priority Date/Time Associated Diagnosis Comments [facility] URINE MICROSCOPIC ONLY Routine 12/11/2024 7:50 PM EDT TB[facility] UA (CLEAN/CATCH) SHEET METAL WORK FURNACE INSTALLER/MICRO IF IND. Routine 12/11/2024 7:50 PM EDT POCT URINALYSIS DIPSTICK Routine 12/11/2024 3:09 PM EDT 35 weeks gestation of Third trimester TBH URINE MICROSCOPIC ONLY Routine 11/26/2024 12:55 PM EDT TBH UA (CLEAN/CATCH) SHEET METAL WORK FURNACE INSTALLER/MICRO IF IND. Routine 11/26/2024 12:55 PM EDT POCT URINALYSIS DIPSTICK Routine 11/21/2024 3:05 PM EDT Third trimester POCT URINALYSIS DIPSTICK Routine 11/07/2024 11:44 AM EDT Third trimester TBH URINE MICROSCOPIC ONLY Routine 10/15/2024 1:00 PM EDT TBH UA (CLEAN/CATCH) SHEET METAL WORK FURNACE INSTALLER/MICRO IF IND. Routine 10/15/2024 1:00 PM EDT GLUCOSE 1 HOUR Routine 10/10/2024 12:24 PM EDT ALL CBC WITH AUTO DIFF Routine 10/10/2024 12:24 PM EDT from Last 3 Months Results * (ABNORMAL) TBH URINE MICROSCOPIC ONLY (12/11/2024 7:50 PM EDT) Only the most recent of3 resultswithin the time period is included. TBH WBC 2-5(A) NONE SEEN #/HPF TBH [...] CLINISYNC TBH * (ABNORMAL) TBH UA (CLEAN/CATCH) SHEET METAL WORK FURNACE INSTALLER/MICRO IF IND. (12/11/2024 7:50 PM EDT) Only the most recent of3 resultswithin the time period is included. COLOR URINE LT. YELLOW YELLOW TBH CLARITY [...] Andrzej Ayesha DO [facility] * (ABNORMAL) POCT urinalysis dipstick manually resulted (12/11/2024 3:09 PM EDT) Only the most recent of3 resultswithin the time period is included. Color, UA Yellow Clarity, UA Clear Glucose, UA Negative Negative - 1999(110) ++++ mg/dL Bilirubin, UA Negative Negative - 4(70) +++ mg/dL Ketones, UA Positive Negative - 160(16) ++++ mg/dL Comment:40 Spec Grav, UA 1.020 1 - 1.03 Blood, UA Negative Negative - 50 William/mcL pH, UA 7.0 5 - 9 Protein, UA Negative Negative - 1999(20) ++++ mg/dL Urobilinogen, UA 0.2 0.2 - 12 mg/dL Leukocytes, UA Positive Negative - 500+++ Roma/mcL Comment:small Nitrite, UA Negative Negative - Positive Urine 12/11/2024 3:09 PM EDT Andrzej Hodge DO POINT OF CARE TEST ENTER/EDIT OR DERABLES Final Result * GLUCOSE 1 HOUR (10/10/2024 12:24 PM EDT) GLUCOSE 1 HOUR 114 <130 mg/dL TB 10/10/2024 12:2 4 PM EDT 10/10/2024 12:25 PM EDT Narrative CLINISYNC - 10/10/2024 1:07 PM EDT Amy VILLATORO LAB BLOOD ORDERABLES Final Resul t [facility] * (ABNORMAL) ALL CBC WITH AUTO DIFF (10/10/2024 12:24 PM EDT) TB WBC 7.8 4.0 - 11.0 10 3/uL TBH TB RBC 3.88(L) 4.20 - 5.40 10 6/uL TBH TBH HGB 10.3(L) 12.0 - 16.0 g/dL TB TB HCT 32.4(L) 36.0 - 48.0 % TBH TB MCV 83.5 81.0 - 99.0 fL TBH TB MCH 26.5(L) 26.7 - 34.0 pg TBH TB MCHC 31.8 29.9 - 35.2 g/dL TB TB RDW 14.7 11.0 - 15.0 % TBH TB PLT 292 150 - 450 10 3/uL TBH TB MPV 10.3 9.5 - 13.5 fL TBH NEUTROPHILS PERCENT AUTO 71.1 43.0 - 75.0 % TBH LYMPHOCYTES PERCENT AUTO 21.3 20.5 - 60.0 % TBH MONOCYTES PERCENT AUTO 6.5 1.7 - 12.0 % TBH TBH EO % 0.4(L) 0.9 - 7.0 % TBH BASOPHILS PERCENT AUTO 0.3 0.2 - 2.0 % TBH IMMATURE GRANULOCYTES PCT AUTO 0.4 0.0 - 0.5 % TBH NEUTROPHILS ABSOLUTE AUTO 5.6 1.4 - 6.5 10 3/uL TBH LYMPHOCYTES ABSOLUTE AUTO 1.7 1.2 - 3.8 10 3/uL TBH MONOCYTES ABSOLUTE AUTO 0.5 0.3 - 0.8 10 3/uL TBH TBH EO # 0.0 0.0 - 0.7 10 3/uL TBH BASOPHILS ABSOLUTE AUTO 0.0 0.0 - 0.1 10 3/uL TBH IMMATURE GRANULOCYTES ABS AUTO 0.03 0.00 - 0.03 10 3/uL TBH 10/10/2024 12:2 4 PM EDT 10/10/2024 12:25 PM EDT Narrative CLINISYNC - 10/10/2024 12:49 PM EDT us Amy VILLATORO CLINISYNC Final Result CLINISYNC TB from Last 3 Months Insurance [employer] [place] Member Subscriber Plan / Payer (Ef fective 2022-Present) Name:Alexandra Higgins Relation to Subscriber:Self Name:Alexandra Higgins Payer ID:Not on file Group ID:[id number] Type:Not on file Address: [address] [place] [id number]
--- OUTSIDE RECORDS SUMMARY | 2024-12-19 22:53 | XMS_ITS | Encounter Summary ---
Author Organization [facility] Address [address] [place] [address] Care Team Providers Care Entry Driver Operator Name Role Phone Unavailable Primary Care Provider Unavailabl e Encounter Details Date Type Department Care Team (Late st Contact Info) Description 06/29/2024 Abstract [facility] OB [address] [place] [address] Andrzej Hodge DO [address], [facility] Social History Tobacco Use Types Packs/Day [...] [address] [place] [address] Amy Abebe PA [address] [place] [address] documented as of this encounter Visit Diagnoses Not on filedocumented in this encounter
--- OUTSIDE RECORDS SUMMARY | 2024-12-19 22:53 | XMS_ITS | Encounter Summary ---
Author Organization [facility] Address [address] [place] [address] Care Team Providers Care Electrical Maintenance Technician Name Role Phone Unavailable Primary Care Provider Unavailabl e Encounter Details Date Type Department Care Team (Late st Contact Info) Description 07/04/2023 Clinisync Result Encounter [facility] External Department Unsolicited Teresita Hodge DO [address] [facility] [address] [place], [facility]11 Social History Tobacco Use Types Packs/Day [...] AM EDT Routine [facility] BCP OB [address] [place] [phone] Amy Abebe PA [address] [facility] [place] [address] (work) documented as of this encounter Procedures Procedure Name Priority Date/Time Associated Diagnosis Comments US AMNIOTIC FLUID VOLUME 07/04/2023 6:53 PM EST documented in this encounter Results * US AMNIOTIC FLUID VOLUME (07/04/2023 6:53 PM EST) Anatomical Region Laterality Modality Radiographic Priya ging 07/04/2023 6:53 PM EST Narrative 07/04/2023 6:56 [place] [address] Ultrasound Report Signed Patient: ALEXANDRA HIGGINS MR#: [id number] : 2000 Acct:[id number] Age/Sex: 22 / F ADM Date: 07/04/23 Loc: FBCO Attending Dr: Teresita Hodge D.O. Ordering Physician: Teresita Hodge D.O. Date of Service: 07/04/23 Procedure(s): US OB amniotic fluid vol Accession Number(s): [id number] cc: Teresita Hodge D.O.; Physician,Non-Staff MRaad The [address] [address] Patient Name: ALEXANDRA HIGGINS MRN: [id number] date: 2000 Sex: F Assigned Patient Location: [facility] Current Patient Location: [facility] Accession/Order Number: [id number] Exam Date: 07/04/2023 17:45 Report Date: 07/04/2023 18:53 At the request of: TERESITA HODGE Procedure: US OB amniotic fluid vol EXAM: US OB cervical length, US OB amniotic fluid vol 07/04/2023 3:50 PM PST, [id number], [id number] HISTORY: r/o srom. TECHNIQUE: Multiple longitudinal and [...] Sullivan Signed By: 07/04/231855 DD/ 52 TD/TT: Semi Automatic Sewing Machine Operator: Procedure Note Radiology, Radiologist, MD - 07/04/2023 [place] [address] Ultrasound Report Signed Patient: ALEXANDRA HIGGINS DMR#: [id number] : 2000Acct:[id number] Age/Sex: Date: 07/04/23 Loc: FBCO Attending Dr: Teresita Hodge D.O. Ordering Physician: Teresita Hodge D.O. Date of Service: 07/04/23 Procedure(s): US OB amniotic fluid vol Accession Number(s): [id number] cc: Teresita Hodge D.O.; Physician,Non-Staff M.DConcetta The [place] [address] Patient Name: ALEXANDRA HIGGINS MRN: [facility]:[id number] date: 2000 Sex: F Assigned Patient Location: [facility] Current Patient Location: [facility] Accession/Order Number: [id number] Exam Date: 07/04/2023 17:45 Report Date: 07/04/2023 18:53 At the request of: TERESITA HODGE Procedure: US OB amniotic fluid vol EXAM: US OB cervical length, US OB amniotic fluid vol 07/04/2023 3:50 PMPST, [id number], [id number] HISTORY: r/o srom. TECHNIQUE: Multiple longitudinal and transverse grayscale and color sonographic images of the intrauterine gestation and cervix were acquired. COMPARISON: OB ultrasound 06/27/2023. FINDINGS/IMPRESSION: Single live intrauterine gestation with normal heart rate of 152bpm. Amniotic fluid index is within normal limits at 15.4 cm. Cervix is long and closed measuring of 4.37 cm. position is cephalic. Electronically authenticated by: CHIP SULILVAN Date: 07/04/2023 18:53 Dictated By: Chip Sullivan Signed By:07/04/231855 DD/ 52 TD/TT: Semi Automatic Sewing Machine Operator: us Teresita Hodge DO IMG XR PROCEDURES Final Result documented in this encounter Visit Diagnoses Not on filedocumented in this encounter
--- OUTSIDE RECORDS SUMMARY | 2024-12-19 22:53 | XMS_ITS | Encounter Summary ---
Author Organization [facility] Address [address] [place] [address] Care Team Providers Care Sludge Mill Operator Name Role Phone Unavailable Primary Care Provider Unavailabl e Encounter Details Date Type Department Care Team (Late st Contact Info) Description 10/24/2024 Abstract [facility] OB [address] [facility] [place] [address] Andrzej Hodge DO [address] [facility] [address] [place], [facility]11 Social History Tobacco Use Types [...] Description 12/20/2024 9:50 AM EDT Routine [facility] OB [address] [facility] [place] [address] Amy Abebe PA [address] [facility] [place] [address] documented as of this encounter Visit Diagnoses Not on filedocumented in this encounter
--- OUTSIDE RECORDS SUMMARY | 2024-12-19 22:53 | XMS_ITS | Encounter Summary ---
Author Organization [facility] Address [address] [place] [address] Care Team Providers Care Cheese Factory Worker Name Role Phone Unavailable Primary Care Provider Unavailabl e Encounter Details Date Type Department Care Team (Late st Contact Info) Description 05/16/2023 Clinisync Result Encounter NOMS External Department Unsolicited Teresita Hodge DO [address] [facility] [address] [place], [facility]11 Social History Tobacco Use Types Packs/Day [...] AM EDT Routine [facility]CP OB [address] [facility] [place] [address] Amy Abebe PA [address] [facility] [place] [address] (work) documented as of this encounter Procedures Procedure Name Priority Date/Time Associated Diagnosis Comments US OB L= 14 WEEKS FETUS 05/16/2023 10:09 PM EDT documented in this encounter Results * US OB L= 14 WEEKS FETUS (05/16/2023 10:09 PM EDT) Anatomical Region Laterality Modality Other 05/16/2023 10:0 9 PM EDT Narrative 05/16/2023 10:09 [place] [address] Ultrasound Report Signed Patient: CAMERON HIGGINS MR#: [id number] : 2000 Acct:[id number] Age/Sex: 22 / F ADM Date: 05/16/23 Loc: US Attending Dr: Teresita Hodge D.O. Ordering Physician: Teresita Hodge D.O. Date of Service: 05/16/23 Procedure(s): US OB <= 14 weeks fetus Accession Number(s): [id number] cc: Teresita Hodge D.O.; Physician,Non-Staff M.Beatrice [address] [address] Patient Name: CAMERON HIGGINS MRN: [id number] date: 2000 Sex: F Assigned Patient Location: US Current Patient Location: US Accession/Order Number: [id number] Exam Date: 05/16/2023 13:00 Report Date: 05/16/2023 22:09 At the request of: TERESITA HODGE Procedure: US OB <= 14 weeks fetus EXAMINATION: US OB <= 14 weeks fetus HISTORY: FOLLOW UP OVARIAN CYST COMPARISON: No relevant comparison available. FINDINGS: GESTATIONAL SAC: Present and normal appearing. YOLK SAC: Absent. POLE: Present and normal appearing. CARDIAC: 147 bpm UTERUS: Normal size and appearance. OVARIES: Right: Contains a slightly complex cyst, 1.4 cm in diameter; likely resolving corpus lutein cyst. Left: Normal. CUL-DE-SAC: Normal. OTHER: None. AGE BY LMP: 14 weeks 4 days FERN BY LMP: 11/10/2023 US/US OB <= 14 weeks fetus IMPRESSION: 1. Single live intrauterine . 2. Decrease in size of the right ovarian cyst favoring benign etiology. Electronically authenticated by: ARIAS JADE Date: 05/16/2023 22:09 Dictated By: Arias Jade M.D. Signed By: 05/16/232211 DD/ 08 TD/TT: Willow Analyst: Procedure Note Radiology, Radiologist, MD - 05/17/2023 [place] [address] Ultrasound Report Signed Patient: CAMERON HIGGINS DMR#: [id number] : 2000Acct:[id number] Age/Sex: 22 / FADM Date: 05/16/23 Loc: US Attending Dr: Teresita Hodge D.O. Ordering Physician: Teresita Hodge D.O. Date of Service: 05/16/23 Procedure(s): US OB <= 14 weeks fetus Accession Number(s): [id number] cc: Teresita Hodge D.O.; Physician,Non-Staff Viri The [address] [address] Patient Name: CAMERON HIGGINS MRN: [id number] date: 2000 Sex: F Assigned Patient Location: US Current Patient Location: US Accession/Order Number: [id number] Exam Date: 05/16/2023 13:00 Report Date: 05/16/2023 22:09 At the request of: TERESITA HODGE Procedure: US OB <= 14 weeks fetus EXAMINATION: US OB <= 14 weeks fetus HISTORY: FOLLOW UP OVARIAN CYST COMPARISON: No relevant comparison available. FINDINGS: GESTATIONAL SAC: Present and normal appearing. YOLK SAC: Absent. POLE: Present and normal appearing. CARDIAC: 147 bpm UTERUS: Normal size and appearance. OVARIES: Right: Contains a slightly complex cyst, 1.4 cm in diameter;likely resolving corpus lutein cyst. Left: Normal. CUL-DE-SAC: Normal. OTHER: None. AGE BY LMP: 14 weeks 4 days FERN BY LMP: 11/10/2023 US/US OB <= 14 weeks fetus IMPRESSION: 1. Single live intrauterine . 2. Decrease in size of the right ovarian cyst favoring benign etiology. Electronically authenticated by: ARIAS JADE Date: 05/16/2023 22:09 Dictated By: Arias Jade M.D. Signed By:05/16/232211 DD/ 08 TD/TT: Willow Analyst: us Teresita Hodge DO [facility] Final Result documented in this encounter Visit Diagnoses Not on filedocumented in this encounter
[2024-12-19 23:10] VITALS: BP 108/65; PULSE 85
[2024-12-19 23:18] LABS: Bilirubin Urine NEGATIVE (NEGATIVE); Blood Urine NEGATIVE (NEGATIVE); Clarity Urine CLEAR (CLEAR); Color Urine YELLOW (YELLOW); Glucose Urine UA NEGATIVE (NEGATIVE); Ketones Urine NEGATIVE (NEGATIVE); Leukocyte Esterase Urine TRACE (NEGATIVE); Nitrite Urine NEGATIVE (NEGATIVE); Protein Urine TRACE mg/dL (NEG/TRACE); Specific Gravity Urine 1.025 (1.005-1.025)
[2024-12-19 23:22] LABS: Urine Microscopic Indicated YES
[2024-12-19 23:31] LABS: Bacteria Urine TRACE #/HPF (NONE SEEN); Cast Seen? NONE SEEN #/LPF (NONE SEEN); Crystals Seen? None Seen #/HPF (None Seen); Mucus Urine NONE SEEN (NONE SEEN); RBC Urine NONE SEEN #/HPF (0-2); Squamous Epithelial Cell Urine RARE #/LPF (NONE/RARE); Urine Culture Indicated NO; WBC Urine 0-2 #/HPF (NONE SEEN)
== END 2024-12-20 01:40 | disposition home or self-care (01) ==
PROVIDERS: Admitting Provider Obstetrics & Gynecology; Visit Provider Obstetrics & Gynecology
DX: O26.893 Other specified pregnancy related conditions, third trimester (principal); M54.9 Dorsalgia, unspecified; Z3A.00 Weeks of gestation of pregnancy not specified
CPT/HCPCS: 59025; 81001; G0378; G0379

== ENCOUNTER 2024-12-24 08:44 | Inpatient (IN) | payer MEDICAID, SELFPAY ==
--- OUTSIDE RECORDS SUMMARY | 2024-12-11 14:30 | XMS_ITS | Encounter Summary ---
Author Organization [facility] Address [address] [address] Care Team Providers Care Concrete Inspector Name Role Phone Unavailable Primary Care Provider Unavailabl e Encounter Details Date Type Department Care Team (Late st Contact Info) Description 12/11/2024 2:30 PM EDT Routine [facility] [address] [place] [id number] Andrzej Hodge, DO [address], [place] [id number] 35 weeks gestation of ; Third trimester Social History Tobacco Use Types Packs/Day Years Used Date Smoking Tobacco: Never Alcohol Use Standard Drinks/Week Comments Never 0 (1 standard drink = 0.6 oz pur e alcohol) caffeine: none Estimated Date of Delivery Comme nts Yes 01/09/2025 Based on last me nstrual period of 04/04/2024 Sex and Gender Information Value Date Recorded Sex Assigned at Not on file Legal Sex Female 7:00 PM EDT Gender Identity Not on file Sexual Orientation Not on file documented as of this encounter Last Filed Vital Signs Vital Sign Reading Time Taken Comments Blood Pressure 110/72 12/11/2024 3:04 PM EDT Pulse - - Temperature - - Respiratory Rate - - Oxygen Saturation - - Inhaled Oxygen Concentration - - Weight 84.9 kg (187 lb 1.9 oz) 12/11/2024 3:04 P M EDT Height - - Body Mass Index 32.63 11/10/2022 12:00 PM EDT documented in this encounter Progress Notes * Sharon Hare, GEAR STRAIGHTENER - 12/11/2024 2:30 PM EDT Reason for Appointment: Patient ID: Alexandra Higgins is a 24 y.o. female who presents for No chief complaint on file. Patient presents today for Return OB appointment. MEDICATIONS No current outpatient medications ALLERGIES Allergies Allergen Reactions Pollen Extract Other [...] appearance. She is well-developed. Genitourinary: Vulva normal. Cardiovascular: Rate and Rhythm: Normal rate and [...] nursing note reviewed. Exam conducted with a software engineering project manager present. Vitals: Estimated body mass index is 32.63 kg/m?? as calculated from the following: Height as of 11/10/22: 5' 3.5 . Weight as of this encounter: 187 lb 1.9 oz. BP: 110/72 Patient's last menstrual period was 04/04/2024. ASSESSMENT & PLAN ICD-10-CM 1. 35 weeks gestation of Z3A.35 POCT urinalysis dipstick manually resulted 2. Third trimester Z34.93 CULTURE, GROUP B STREP WITH SUSCEPTIBLITY POCT urinalysis dipstick manually resulted CULTURE, GROUP B STREP WITH SUSCEPTIBLITY Patient is doing well but has complaints of being tired and having maternal discomfort due to . Patient verbalized frequent movement and was instructed to perform kick counts three times per day. labor precautions were given, LARC consent was signed/declined, and GBS was obtained. Cervical check was performed and patient is 3cm dilated. Orders Placed This Encounter Procedures CULTURE, GROUP B STREP WITH SUSCEPTIBLITY POCT urinalysis dipstick manually resulted Follow Up: Patient is to return to office in 1 week for routine OB appointment Documented by Sharon Hare LPN on behalf of: Andrzej Hodge DO documented in this encounter Plan of Treatment Scheduled Orders Name Type Priority Associated Diagnoses Orde r Schedule CULTURE, GROUP B STREP WITH SUSCEPTIBLITY Lab Routine Third trimester Expected: 12/11/2024, Expires: 12/11/2025 documented as of this encounter Procedures Procedure Name Priority Date/Time Associated Diagnosis Comments POCT URINALYSIS DIPSTICK Routine 12/11/2024 3:09 PM EDT 35 weeks gestation of Third trimester documented in this encounter Results * (ABNORMAL) POCT urinalysis dipstick manually resulted (12/11/2024 3:09 PM EDT) Color, UA Yellow Clarity, UA Clear Glucose, UA Negative Negative - 2000(110) ++++ mg/dL Bilirubin, UA Negative Negative - 4(70) +++ mg/dL Ketones, UA Positive Negative - 160(16) ++++ mg/dL Comment:40 Spec Grav, UA 1.020 1 - 1.03 Blood, UA Negative Negative - 50 William/mcL pH, UA 7.0 5 - 9 Protein, UA Negative Negative - 2000(20) ++++ mg/dL Urobilinogen, UA 0.2 0.2 - 12 mg/dL Leukocytes, UA Positive Negative - 500+++ Roma/mcL Comment:small Nitrite, UA Negative Negative - Positive Urine 12/11/2024 3:09 PM EDT us Andrzej Hodge DO POINT OF CARE TEST ENTER/EDIT OR DERABLES Final Result documented in this encounter Visit Diagnoses Diagnosis 35 weeks gestation of Third trimester state, incidental documented in this encounter
--- OUTSIDE RECORDS SUMMARY | 2024-12-20 09:50 | XMS_ITS | Encounter Summary ---
Author Organization [facility] Address [address] [place] [address] Care Team Providers Care General Clerk Name Role Phone Unavailable Primary Care Provider Unavailabl e Reason for Visit * Reason Comments Routine Visit Encounter Details Date Type Department Care Team (Late st Contact Info) Description 12/20/2024 9:50 AM EDT Routine [facility] BCP OB [address] [facility] [place] [address] Amy Abebe PA [address] [facility] [address] [place], [place] [address] 37 weeks gestation of ; Third trimester Social [...] Sign Reading Time Taken Comments Blood Pressure 120/74 12/20/2024 10:05 AM EDT Pulse - - Temperature - - Respiratory Rate - - Oxygen Saturation - - Inhaled Oxygen Concentration - - Weight 85.2 kg (187 lb 12.8 oz) 025 10:05 AM EDT Height - - Body Mass Index 32.75 11/10/2022 12:00 PM EDT documented in this encounter Progress Notes * SHAUNA Rizvi - 12/20/2024 9:50 AM EDT Reason for Appointment: Patient ID: Alexandra [...] reviewed. Vitals: Estimated body mass index is 32.75 kg/m?? as calculated from the following: Height as of 11/10/22: 5' 3.5 . Weight as of this encounter: 187 lb 12.8 oz. BP: 120/74 Patient's last menstrual period was 04/04/2024. ASSESSMENT & PLAN ICD-10-CM 1. 37 weeks gestation of Z3A.37 POCT urinalysis dipstick manually resulted 2. Third trimester Z34.93 POCT urinalysis dipstick manually resulted Return OB: Patient presents today for a routine obstetrics appointment. Patient is currently 37w1d . Patient states she is doing well [...] of: SHAUNA Rizvi documented in this encounter Plan of Treatment Not on file documented as of this encounter Procedures Procedure Name Priority Date/Time Associated Diagnosis Comments POCT URINALYSIS DIPSTICK Routine 12/20/2024 10:13 AM EDT 37 weeks gestation of Third trimester documented in this encounter Results * (ABNORMAL) POCT urinalysis dipstick manually resulted (12/20/2024 10:13 AM EDT) Color, UA Yellow Clarity, UA Clear Glucose, UA Negative Negative - 2000(110) ++++ mg/dL Bilirubin, UA Negative Negative - 4(70) +++ mg/dL Ketones, UA Negative Negative - 160(16) ++++ mg/dL Spec Grav, UA 1.020 1 - 1.03 Blood, UA Negative Negative - 50 William/mcL pH, UA 7.0 5 - 9 Protein, UA Negative Negative - 1999(20) ++++ mg/dL Urobilinogen, UA 0.2 0.2 - 12 mg/dL Leukocytes, UA Positive Negative - 500+++ Roma/mcL Comment:small Nitrite, UA Negative Negative - Positive Urine 12/20/2024 10:1 3 AM EDT Amy VILLATORO POINT OF CARE TEST ENTER/EDIT OR DERABLES Final Result documented in this encounter Visit Diagnoses Diagnosis 37 weeks gestation of Third trimester state, incidental documented in this encounter
[2024-12-24] VITALS (17 sets, daily range): BP systolic 101–140; BP diastolic 62–92; PULSE 87–117; TEMP 35.7–36.9
--- OUTSIDE RECORDS SUMMARY | 2024-12-24 08:47 | XMS_ITS | Encounter Summary ---
Author Organization [facility] Address [address] [place] [address] Care Team Providers Care Denitrator Operator Name Role Phone Unavailable Primary Care Provider Unavailabl e Encounter Details Date Type Department Care Team (Late st Contact Info) Description 07/12/2024 Abstract [facility] OB [address] [facility] [place] [phone] Andrzej Hodge, DO [address] [facility] [place] [address] Social History Tobacco Use Types Packs/Day Years [...] on file documented as of this encounter Visit Diagnoses Not on filedocumented in this encounter
--- OUTSIDE RECORDS SUMMARY | 2024-12-24 08:47 | XMS_ITS | Encounter Summary ---
Author Organization [facility] Address [address] [place] [address] Care Team Providers Care Ore Dryer Name Role Phone Unavailable Primary Care Provider Unavailabl e Encounter Details Date Type Department Care Team (Late st Contact Info) Description 06/29/2024 Abstract [facility] OB [address] [facility] [place] [phone] Andrzej Hodge, DO [address] [facility] [address] Social History Tobacco Use Types Packs/Day Years [...]
--- OUTSIDE RECORDS SUMMARY | 2024-12-24 08:47 | XMS_ITS | Encounter Summary ---
Author Organization [facility] Address [address] [place] [address] Care Team Providers Care Certified Prosthetist Name Role Phone Unavailable Primary Care Provider Unavailabl e Encounter Details Date Type Department Care Team (Late st Contact Info) Description 06/27/2023 Clinisync Result Encounter [facility]S External Department Unsolicited Teresita Hodge, DO [address] [facility] [place] [address] Social History Tobacco Use Types Packs/Day Years [...] PM EST Narrative 06/27/2023 3:13 [place] [address] Ultrasound Report Signed Patient: ALEXANDRA HIGGINS MR#: [id number] : 2000 Acct:[id number] Age/Sex: 22 / F ADM Date: 06/27/23 Loc: US Attending Dr: Teresita Hodge D.O. Ordering Physician: Teresita Hodge D.O. Date of Service: 06/27/23 Procedure(s): US OB anatomy Accession Number(s): [id number] cc: Teresita Hodge D.O.; Physician,Non-Staff Viri [address] [address] Patient Name: ALEXANDRA HIGGINS MRN: [id number] date: 2000 Sex: F Assigned Patient Location: US Current Patient Location: US Accession/Order Number: [id number] Exam Date: 06/27/2023 13:07 Report Date: 06/27/2023 [...] Dictated By: Arias Jade M.D. Signed By: 06/27/231515 DD/ 12 TD/TT: Consulting Marine Engineer: Procedure Note Radiology, Radiologist, MD - 06/27/2023 [place] [address] Ultrasound Report Signed Patient: ALEXANDRA HIGGINS DMR#: [id number] : 2000Acct:[id number] Age/Sex: 22 / FADM Date: 06/27/23 Loc: US Attending Dr: Teresita Hodge D.O. Ordering Physician: Teresita Hodge D.O. Date of Service: 06/27/23 Procedure(s): US OB anatomy Accession Number(s): [id number] cc: Teresita Hodge D.O.; Physician,Non-Staff Viri The [address] [address] Patient Name: ALEXANDRA HIGGINS MRN: [id number] date: 2000 Sex: F Assigned Patient Location: US Current Patient Location: US Accession/Order Number: [id number] Exam Date: 06/27/2023 13:07 Report Date: 06/27/2023 [...] 15:13 Dictated By: Arias Jade M.D. Signed By:06/27/231515 DD/ 12 TD/TT: Consulting Marine Engineer: us Teresita Hodge DO [facility] Final Result documented in this encounter Visit Diagnoses Not on filedocumented in this encounter
--- OUTSIDE RECORDS SUMMARY | 2024-12-24 08:47 | XMS_ITS | Encounter Summary ---
Author Organization [facility] Address [address] [place] [address] Care Team Providers Care Partnership Manager Name Role Phone Unavailable Primary Care Provider Unavailabl e Encounter Details Date Type Department Care Team (Late st Contact Info) Description 05/16/2023 Clinisync Result Encounter NOMS External Department Unsolicited Teresita Hodge, DO [address] [facility] [place] [address] Social History Tobacco Use Types Packs/Day Years [...] PM EDT Narrative 05/16/2023 10:09 PM EDT [address] [address] Ultrasound Report Signed Patient: CAMERON HIGGINS MR#: [id number] : 2000 Acct:[id number] Age/Sex: 22 / F ADM Date: 05/16/23 Loc: US Attending Dr: Teresita Hodge D.O. Ordering Physician: Teresita Hodge D.O. Date of Service: 05/16/23 Procedure(s): US OB <= 14 weeks fetus Accession Number(s): [id number] cc: Teresita Hodge D.O.; Physician,Non-Staff Viri [address] [address] Patient Name: CAMERON HIGGINS MRN: [facility]:[id number] date: 2000 Sex: F Assigned Patient Location: US Current Patient Location: US Accession/Order Number: [id number] Exam Date: 05/16/2023 13:00 Report Date: 05/16/2023 [...] M.D. Signed By: 05/16/232211 DD/ 08 TD/TT: End Touching Machine Operator: Procedure Note Radiology, Radiologist, - 05/17/2023 [place] [address] Ultrasound Report Signed Patient: CAMERON HIGGINS DMR#: [id number] : 2000Acct:[id number] Age/Sex: 22 / FADM Date: 05/16/23 Loc: US Attending Dr: Teresita Hodge D.O. Ordering Physician: Teresita Hodge D.O. Date of Service: 05/16/23 Procedure(s): US OB <= 14 weeks fetus Accession Number(s): [id number] cc: Teresita Hodge D.O.; Physician,Non-Staff Viri The [address] [address] Patient Name: CAMERON HIGGINS MRN: [facility]:[id number] date: 2000 Sex: F Assigned Patient Location: US Current Patient Location: US Accession/Order Number: [id number] Exam Date: 05/16/2023 13:00 Report Date: 05/16/2023 [...] AGE BY LMP: 14 weeks 4 days FENR BY LMP: 11/10/2023 US/US OB <= 14 weeks fetus IMPRESSION: 1. Single live intrauterine . 2. Decrease in size of the right ovarian cyst favoring benign etiology. Electronically authenticated by: ARIAS JADE Date: 05/16/2023 22:09 Dictated By: Arias Jade M.D. Signed By:05/16/232211 DD/ 08 TD/TT: End Touching Machine Operator: us Teresita Hodge DO [facility] Final Result documented in this encounter Visit Diagnoses Not on filedocumented in this encounter
--- OUTSIDE RECORDS SUMMARY | 2024-12-24 08:47 | XMS_ITS | Encounter Summary ---
Author Organization [facility] Address [address] [place] [address] Care Team Providers Care Aluminum Shingle Roofer Name Role Phone Unavailable Primary Care Provider Unavailabl e Encounter Details Date Type Department Care Team (Late st Contact Info) Description 12/19/2024 Clinisync Result Encounter [facility]S External Department Unsolicited Andrzej Hodge, DO [address] [facility] [place] [address] Social History Tobacco Use Types Packs/Day Years [...] Diagnosis Comments [facility] URINE MICROSCOPIC ONLY Routine 12/19/2024 11:00 PM EDT [facility] UA (CLEAN/CATCH) AIRPLANE ELECTRICAL REPAIRER/MICRO IF IND. Routine 12/19/2024 11:00 PM EDT documented in this encounter Results * (ABNORMAL) [facility] URINE MICROSCOPIC ONLY (12/19/2024 11:00 PM EDT) [facility] WBC 0-2(A) NONE SEEN #/HPF TBH TBH RBC NONE SEEN 0 - 2 #/HPF TBH BACTERIA URINE TRACE(A) NONE SEEN #/HPF [facility]H MUCUS URINE NONE SEEN NONE SEEN TBH SQUAMOUS EPITHELIAL CELL URINE RARE NONE/RARE #/LPF TBH CRYSTALS SEEN? None Seen None Seen #/HPF TBH CAST SEEN? NONE SEEN NONE SEEN #/LPF [facility]H URINE CULTURE INDICATED NO [facility] 12/19/2024 11:0 0 PM EDT 12/19/2024 11:16 PM EDT Narrative [facility] - 12/19/2024 11:31 PM EDT Andrzej Ayesha DO [facility] Final Result Performing Organization Address [facility]/ZIP Co de Phone Number [facility] * (ABNORMAL) [facility] UA (CLEAN/CATCH) AIRPLANE ELECTRICAL REPAIRER/MICRO IF IND. (12/19/2024 11:00 PM EDT) COLOR URINE YELLOW YELLOW TBH CLARITY URINE CLEAR CLEAR TBH SPECIFIC GRAVITY URINE 1.025 1.005 - 1.025 TBH PH URINE 6.0 5.0 - 9.0 TBH PROTEIN URINE TRACE NEG/TRACE mg/dL TBH GLUCOSE URINE UA NEGATIVE NEGATIVE mg/dL TBH BILIRUBIN URINE NEGATIVE NEGATIVE TBH KETONES URINE NEGATIVE NEGATIVE mg/dL TBH BLOOD URINE NEGATIVE NEGATIVE TBH NITRITE URINE NEGATIVE NEGATIVE TBH UROBILINOGEN URINE 1.0 0.2 - 1.0 EU/dL TBH LEUKOCYTE ESTERASE URINE TRACE(A) NEGATIVE TBH URINE MICROSCOPIC INDICATED YES [facility] 12/19/2024 11:0 0 PM EDT 12/19/2024 11:16 PM EDT Narrative [facility] - 12/19/2024 11:31 PM EDT Andrzej Ayesha DO [facility] Final Result Performing Organization Address [facility]/ZIP Co de Phone Number [facility] documented in this encounter Visit Diagnoses Not on filedocumented in this encounter
--- OUTSIDE RECORDS SUMMARY | 2024-12-24 08:47 | XMS_ITS | Encounter Summary ---
Author Organization [facility] Address [address] [place] [address] Care Team Providers Care Therapeutic Mentor Name Role Phone Unavailable Primary Care Provider Unavailabl e Encounter Details Date Type Department Care Team (Late st Contact Info) Description 09/14/2024 External Result Encounter [facility] B[facility] OB [address] [place] [phone] Andrzej Hodge, DO [address] [facility] [place] [address] Social History Tobacco Use Types Packs/Day Years [...] PM EST THIS EXAM WAS PERFORMED AT [facility] Coding ====== Procedures 34829: Ultrasound, uterus, real time with image documentation, and maternal evaluation plus detailed anatomic examination, transabdominal approach;single or first gestation 21653: Transvaginal Ultrasound (OB) Indication ======== Screening for [...] 1 lb 5 oz EFW by Hadlock ([id number]) Head / Face / Neck Biometry: Cephalic index 0.77 34% Nicolaides Statistician Applied 5.0 mm CM 3.7 mm 4% Nicolaides [...] adequately visualized: Heart / Thorax 4-chamber view. 9-jvoyol-rktshpc view. Interventricular septum. Great vessels. The following [...] - 09/14/2024 THIS EXAM WAS PERFORMED AT [facility] Coding ====== Procedures 32027: Ultrasound, uterus, real time with imagedocumentation, and maternal evaluation plus detailed fetalanatomic examination, transabdominal approach;single or firstgestation [address]4874: Transvaginal Ultrasound (OB) Indication ======== Screening for [...] 1 lb 5 oz EFW by Hadlock ([id number]) Head / Face / Neck Biometry: Cephalic index 0.77 34% Nicolaides Statistician Applied 5.0 mm CM 3.7 mm 4% Nicolaides [...] adequately visualized: Heart / Thorax 4-chamber view. 3-muiyzk-wyjvtiz view. Interventricularseptum. Great vessels. The following structures [...] byprimary OB provider unless otherwise specified by [facility]. Results forwarded to ordering provider so they can follow up with thepatient as necessary. us Andrzej Hodge DO IMG OB US PROCEDURES Final Resul t documented in this encounter Visit Diagnoses Not on filedocumented in this encounter
--- OUTSIDE RECORDS SUMMARY | 2024-12-24 08:47 | XMS_ITS | Encounter Summary ---
Author Organization [facility] Address [address] [place] [address] Care Team Providers Care Digital Editor Name Role Phone Unavailable Primary Care Provider Unavailabl e Encounter Details Date Type Department Care Team (Late st Contact Info) Description 08/15/2024 Abstract [facility] OB [address] [facility] [place] [phone] Andrzej Hodge, DO [address] [facility] [place] [address] Social History Tobacco Use Types Packs/Day Years [...]
--- OUTSIDE RECORDS SUMMARY | 2024-12-24 08:47 | XMS_ITS | Encounter Summary ---
Author Organization [facility] Address [address] [place] [address] Care Team Providers Care Hand Tennis Ball Coverer Name Role Phone Unavailable Primary Care Provider Unavailabl e Encounter Details Date Type Department Care Team (Late st Contact Info) Description 12/11/2024 Clinisync Result Encounter [facility] External Department Unsolicited Andrzej Hodge, DO [address] [facility] [place] [address] Social History Tobacco Use Types Packs/Day Years [...] 12/11/2024 7:50 PM EDT [facility] UA (CLEAN/CATCH) BROWN STOCK WASHER/MICRO IF IND. Routine 12/11/2024 7:50 PM EDT [...] us Andrzej Ayesha DO CLINISYNC Final Result Performing Organization Address [facility] Co de Phone Number CLINISYNC [facility] * (ABNORMAL) [facility] UA (CLEAN/CATCH) BROWN STOCK WASHER/MICRO IF IND. (12/11/2024 7:50 PM EDT) COLOR [...] us Andrzej Ayesha DO CLINISYNC Final Result Performing Organization Address [facility] Co de Phone Number CLINISYNC [facility] documented in this encounter Visit Diagnoses Not on filedocumented in this encounter
--- OUTSIDE RECORDS SUMMARY | 2024-12-24 08:47 | XMS_ITS | Encounter Summary ---
Author Organization [facility] tem Address [id number] [address] [place] [address] Care Team Providers Care Finishing Range Operator Name Role Phone Unavailable Primary Care Provider Unavailabl e Encounter Details Date Type Department Care Team (Late st Contact Info) Description 09/14/2024 Orders Only Maternal- Medicine at [facility] [address] [place] [phone] Ref Prov, [place] [address] Social History Tobacco Use Types Packs/Day Years [...]
--- OUTSIDE RECORDS SUMMARY | 2024-12-24 08:47 | XMS_ITS | Encounter Summary ---
Author Organization [facility] Address [address] [place] [address] Care Team Providers Care Compliance Auditor Name Role Phone Unavailable Primary Care Provider Unavailabl e Encounter Details Date Type Department Care Team (Late st Contact Info) Description 07/04/2023 Clinisync Result Encounter [facility]S External Department Unsolicited Teresita Hodge, DO [address] [facility] [place] [address] Social History Tobacco Use Types Packs/Day Years [...] PM EST Narrative 07/04/2023 6:56 [place] [address] Ultrasound Report Signed Patient: ALEXANDRA HIGGINS MR#: [id number] : 2000 Acct:[id number] Age/Sex: 22 / F ADM Date: 07/04/23 Loc: FBCO Attending Dr: Teresita Hodge D.O. Ordering Physician: Teresita Hodge D.O. Date of Service: 07/04/23 Procedure(s): US OB cervical length Accession Number(s): [id number] cc: Teresita Hodge D.O.; Physician,Non-Staff M.Beatrice The [address] [address] Patient Name: ALEXANDRA HIGGINS MRN: [id number] date: 2000 Sex: F Assigned Patient Location: [facility] Current Patient Location: [facility] Accession/Order Number: [id number] Exam Date: 07/04/2023 17:45 Report Date: 07/04/2023 18:53 At the request of: TERESITA HODGE Procedure: US OB cervical length EXAM: US OB cervical length, US OB amniotic fluid vol 07/04/2023 3:50 PM PST, [id number], [id number] HISTORY: r/o srom. TECHNIQUE: Multiple longitudinal and transverse grayscale and color sonographic images of the intrauterine gestation and cervix were acquired. COMPARISON: OB ultrasound 06/27/2023. FINDINGS/IMPRESSION: Single live intrauterine gestation with normal heart rate of 152 bpm. Amniotic fluid index is within normal limits at 15.4 cm. Cervix is long and closed measuring of 4.37 cm. position is cephalic. Electronically authenticated by: ZEE SULLIVAN Date: 07/04/2023 18:53 Dictated By: Zee Sullivan Signed By: 07/04/231855 DD/ 52 TD/TT: Container Shop Welder: Procedure Note Radiology, Radiologist, MD - 07/04/2023 The [place] [id number] Ultrasound Report Signed Patient: ALEXANDRA HIGGINS DMR#: [id number] : 2000Acct:[id number] Age/Sex: 22 / FADM Date: 07/04/23 Loc: FBCO Attending Dr: Teresita Hodge D.O. Ordering Physician: Teresita Hodge D.O. Date of Service: 07/04/23 Procedure(s): US OB cervical length Accession Number(s): [id number] cc: Teresita Hodge D.O.; Physician,Non-Staff Viri The [place] [address] Patient Name: ALXEANDRA HIGGINS MRN: [id number] date: 2000 Sex: F Assigned Patient Location: [facility] Current Patient Location: [facility] Accession/Order Number: [id number] Exam Date: 07/04/2023 17:45 Report Date: 07/04/2023 18:53 At the request of: TERESITA HODGE Procedure: US OB cervical length EXAM: US OB cervical length, US OB amniotic fluid vol 07/04/2023 3:50 PMPST, [id number], [id number] HISTORY: r/o srom. TECHNIQUE: Multiple longitudinal and transverse grayscale and color sonographic images of the intrauterine gestation and cervix were acquired. COMPARISON: OB ultrasound 06/27/2023. FINDINGS/IMPRESSION: Single live intrauterine gestation with normal heart rate of 152bpm. Amniotic fluid index is within normal limits at 15.4 cm. Cervix is long and closed measuring of 4.37 cm. position is cephalic. Electronically authenticated by: ZEE SULLIVAN Date: 07/04/2023 18:53 Dictated By: Zee Sullivan Signed By:07/04/231855 DD/ 52 TD/TT: Container Shop Welder: us Teresita Hodge DO [facility] IMAGING Final Result documented in this encounter Visit Diagnoses Not on filedocumented in this encounter
--- OUTSIDE RECORDS SUMMARY | 2024-12-24 08:47 | XMS_ITS | Encounter Summary ---
Author Organization [facility] Address [address] [place] [address] Care Team Providers Care Principal Clerk Typist Name Role Phone Unavailable Primary Care Provider Unavailabl e Encounter Details Date Type Department Care Team (Late st Contact Info) Description 06/27/2023 Clinisync Result Encounter [facility] External Department Unsolicited Teresita Hodge, DO [address] [facility] [place] [address] Social History Tobacco Use Types Packs/Day Years [...] PM EST Narrative 06/27/2023 3:13 [place] [address] Ultrasound Report Signed Patient: ALEXANDRA HIGGINS MR#: [id number] : 2000 Acct:[id number] Age/Sex: 22 / F ADM Date: 06/27/23 Loc: US Attending Dr: Teresita Hodge D.O. Ordering Physician: Teresita Hodge D.O. Date of Service: 06/27/23 Procedure(s): US OB transvaginal Accession Number(s): [id number] cc: Teresita Hodge D.O.; Physician,Non-Staff MRaad [place] [id number] Patient Name: ALEXANDRA HIGGINS MRN: [id number] date: 2000 Sex: F Assigned Patient Location: US Current Patient Location: US Accession/Order Number: [id number] Exam Date: 06/27/2023 13:07 Report Date: 06/27/2023 [...] M.D. Signed By: 06/27/231515 DD/ 12 TD/TT: Incident Commander: Procedure Note Radiology, Radiologist, MD - 06/27/2023 [place] [address] Ultrasound Report Signed Patient: ALEXANDRA HIGGINS DMR#: [id number] : 2000Acct:[id number] Age/Sex: 22 / FADM Date: 06/27/23 Loc: US Attending Dr: Teresita Hodge D.O. Ordering Physician: Teresita Hodge D.O. Date of Service: 06/27/23 Procedure(s): US OB transvaginal Accession Number(s): [id number] cc: Teresita Hodge D.O.; Physician,Non-Staff Viri The [address] [address] Patient Name: ALEXANDRA HIGGINS MRN: [id number] date: 2000 Sex: F Assigned Patient Location: US Current Patient Location: US Accession/Order Number: [id number] Exam Date: 06/27/2023 13:07 Report Date: 06/27/2023 [...] M.D. Signed By:06/27/23 1516 DD/ 12 TD/TT: Incident Commander: us Teresita Ayesha DO [facility] IMAGING Final Result documented in this encounter Visit Diagnoses Not on filedocumented in this encounter
--- OUTSIDE RECORDS SUMMARY | 2024-12-24 08:47 | XMS_ITS | Encounter Summary ---
Author Organization [facility] Address [address] [place] [address] Care Team Providers Care Contaminated Land Consultant Name Role Phone Unavailable Primary Care Provider Unavailabl e Encounter Details Date Type Department Care Team (Late st Contact Info) Description 04/25/2023 Abstract [facility] OB [address] [place] [phone] Andrzej Hodge, DO [address] [facility] [place] [address] Social History Tobacco Use Types Packs/Day Years [...]
--- OUTSIDE RECORDS SUMMARY | 2024-12-24 08:47 | XMS_ITS | Clinical Summary ---
Author Organization [facility] [employer] [facility] tem Address [id number] [address] [place] [address] Care Team Providers Care Waste Reduction Coordinator Name Role Phone Unavailable Primary Care [...] total) by mouth in the morning. Active 124-DYRQ-HOLIO AC-DHA ORAL Take by mouth. Active Active Problems Problem Noted Date Diagnosed Date Short cervix affecting with delivery 0 09/14/2024 Estimated Date of Delivery Comme nts Yes 01/09/2025 Based on last me nstrual period of 04/04/2024 Encounters Date Type Department Care Team Description 11/22/2024 Travel 10/24/2024 Telephone Maternal- Medicine at [facility] [address] [place] [address] Valerie Ramirez 10/23/2024 1:51 PM EDT - 10/23/2024 11:59 PM EDT Hospital Encounter [facility] - Ultrasound [address] [place] [phone] Short cervix affecting ; Encounter for repeat [...] Procedure Name Priority Date/Time Associated Diagnosis Comments [facility] OB FOLLOW-UP, 1 FETUS Routine 11/22/2024 3:37 [...] period is included. Anatomical Region Laterality Modality OB-[employer] Ultrasound 11/22/2024 3:20 PM EDT Narrative 11/22/2024 3:54 PM EDT NAME: SCOTT QUIROS : 2000 SEX: F Accession Number: [id number] ORDERING PHYSICIAN: CORA LOUISE REFERRING PHYSICIAN: TERESITA ARTHUR Coding ----- --------- Procedures 57605: Follow-up Ultrasound, per fetus Indication ----- --------- [...] EFW (oz) 9 oz EFW by: Hadlock (WFL-JC-JO-FL) Extended Tibia 57.1 mm 33w 3d 73% [...] 5.7 cm. Recommendations ----- --------- Please see [facility] recommendations from prior clinical and/or ultrasound report documentation. Subsequent follow up or other follow up as clinically determined by primary OB provider unless otherwise specified by [facility]. Results forwarded to ordering provider so they can follow up with the patient as necessary. Procedure Note Boris Torres MD - 11/22/2024 NAME: SCOTT QUIROS : 2000 SEX: F Accession Number: [id number] ORDERING PHYSICIAN: CORA LOUISE REFERRING PHYSICIAN: TERESITA ARTHUR Coding ----- --------- Procedures 26771: Follow-up Ultrasound, per fetus Indication ----- --------- History of prior with delivery , [facility] - left pyelectasis , Obesity in History [...] EFW (oz) 9 oz EFW by: Hadlock (YNE-GM-ZP-FL) Extended Tibia 57.1 mm 33w 3d 73% [...] 5.7 cm. Recommendations ----- --------- Please see [facility] recommendations from prior clinical and/or ultrasoundreport documentation. Subsequent follow up or other follow up as clinically determined byprimary OB provider unless otherwise specified by [facility]. Results forwarded to ordering provider so they can follow up with thepatient as necessary. Cora Louise MD [facility] ORDERABLES Final Result from Last 3 Months Insurance [facility]
--- OUTSIDE RECORDS SUMMARY | 2024-12-24 08:47 | XMS_ITS | Encounter Summary ---
Author Organization [facility] Address [address] [place] [address] Care Team Providers Care Founder And Ceo Name Role Phone Unavailable Primary Care Provider Unavailabl e Encounter Details Date Type Department Care Team (Late st Contact Info) Description 12/11/2024 Bamboo flowsheet [facility] OB [address] [place] [phone] Andrzej Hodge, DO [address] [place], [facility] Social History Tobacco Use Types [...]
--- OUTSIDE RECORDS SUMMARY | 2024-12-24 08:47 | XMS_ITS | Encounter Summary ---
Author Organization [facility] Address [address] [place] [address] Care Team Providers Care Broaching Machine Set Up Operator Name Role Phone Unavailable Primary Care Provider Unavailabl e Encounter Details Date Type Department Care Team (Late st Contact Info) Description 07/04/2023 Clinisync Result Encounter [facility]OMS External Department Unsolicited Teersita Hodge, DO [address] [facility] [place] [address] Social History Tobacco Use Types Packs/Day Years [...] PM EST Narrative 07/04/2023 6:56 [place] [address] Ultrasound Report Signed Patient: ALEXANDRA HIGGINS MR#: [id number] : 2000 Acct:[id number] Age/Sex: 22 / F ADM Date: 07/04/23 Loc: FBCO Attending Dr: Teresita Hodge D.O. Ordering Physician: Teresita Hodge D.O. Date of Service: 07/04/23 Procedure(s): US OB amniotic fluid vol Accession Number(s): [id number] cc: Teresita Hodge D.O.; Physician,Non-Staff M.Beatrice [place] [id number] Patient Name: ALEXANDRA HIGGINS MRN: [facility]:[id number] date: 2000 Sex: F Assigned Patient Location: [facility] Current Patient Location: [facility] Accession/Order Number: [id number] Exam Date: 07/04/2023 17:45 Report Date: 07/04/2023 18:53 At the request of: TERESITA HODGE Procedure: US OB amniotic fluid vol EXAM: US OB cervical length, US OB amniotic fluid vol 07/04/2023 3:50 PM PST, [id number], [id number] HISTORY: r/o srom. TECHNIQUE: Multiple longitudinal and [...] Sullivan Signed By: 07/04/231855 DD/ 52 TD/TT: Direct Casting Operator: Procedure Note Radiology, Radiologist, MD - 07/04/2023 The [place] [id number] Ultrasound Report Signed Patient: ALEXANDRA HIGGINS DMR#: [id number] : 2000Acct:[id number] Age/Sex: 22 / FADM Date: 07/04/23 Loc: FBCO Attending Dr: Teresita Hodge D.O. Ordering Physician: Teresita Hodge D.O. Date of Service: 07/04/23 Procedure(s): US OB amniotic fluid vol Accession Number(s): [id number] cc: Teresita Hodge D.O.; Physician,Non-Staff Viri The [place] [address] Patient Name: ALEXANDRA HIGGINS MRN: [id number] date: 2000 Sex: F Assigned Patient Location: [facility] Current Patient Location: [facility] Accession/Order Number: [id number] Exam Date: 07/04/2023 17:45 Report Date: 07/04/2023 18:53 At the request of: TERESITA HODGE Procedure: US OB amniotic fluid vol EXAM: US OB cervical length, US OB amniotic fluid vol 07/04/2023 3:50 PMPST, [id number], [id number] HISTORY: r/o srom. TECHNIQUE: Multiple longitudinal and [...] Zee Sullivan Signed By:07/04/231855 DD/ 52 TD/TT: Direct Casting Operator: us Teresita Hodge DO IMG XR PROCEDURES Final Result documented in this encounter Visit Diagnoses Not on filedocumented in this encounter
--- OUTSIDE RECORDS SUMMARY | 2024-12-24 08:47 | XMS_ITS | Encounter Summary ---
Author Organization [facility] Address [address] [place] [address] Care Team Providers Care Sewer Hand Name Role Phone Unavailable Primary Care Provider Unavailabl e Encounter Details Date Type Department Care Team (Late st Contact Info) Description 09/17/2024 Abstract [facility] OB [address] [facility] [place] [place] [phone] Andrzej Hodge, DO [address] [facility] [place] [address] Social History Tobacco Use Types Packs/Day Years [...]
--- OUTSIDE RECORDS SUMMARY | 2024-12-24 08:47 | XMS_ITS | Encounter Summary ---
Author Organization [facility] Address [address] [place] [address] Care Team Providers Care Ultrasound Specialist Name Role Phone Unavailable Primary Care Provider Unavailabl e Encounter Details Date Type Department Care Team (Late st Contact Info) Description 07/06/2024 Clinisync Result Encounter [facility] External Department Unsolicited Teresita Hodge, DO [address] [place] [address] Social History Tobacco Use Types Packs/Day Years [...] AM EST Narrative 07/06/2024 7:58 AM EST The [place] [id number] Ultrasound Report Signed Patient: ALEXANDRA HIGGINS MR#: [id number] : 2000 Acct:[id number] Age/Sex: 23 / F ADM Date: 07/06/24 Loc: US Attending Dr: Teresita Hodge D.O. Ordering Physician: Teresita Hodge D.O. Date of Service: 07/06/24 Procedure(s): US OB cervical length Accession Number(s): [id number] cc: Teresita Hodge D.O.; Physician,Non-Staff Viri The [place] [id number] Patient Name: ALEXANDRA HIGGINS MRN: [id number] date: 2000 Sex: F Assigned Patient Location: US Current Patient Location: US Accession/Order Number: [id number] Exam Date: 07/06/2024 07:30 Report Date: 07/06/2024 [...] Signed By: 07/06/24 0758 DD/ 0756 TD/TT: Paint Department Supervisor: Procedure Note Radiology, Radiologist, MD - 07/06/2024 The [place] [id number] Ultrasound Report Signed Patient: ALEXANDRA HIGGINS DMR#: [id number] : 2000Acct:[id number] Age/Sex: 23 / FADM Date: 07/06/24 Loc: US Attending Dr: Teresita Hodge D.O. Ordering Physician: Teresita Hodge D.O. Date of Service: 07/06/24 Procedure(s): US OB cervical length Accession Number(s): [id number] cc: Teresita Hodge D.O.; Physician,Non-Staff Viri [place] [address] Patient Name: ALEXANDRA HIGGINS MRN: [facility]:[id number] date: 2000 Sex: F Assigned Patient Location: Current Patient Location: US Accession/Order Number: [id number] Exam Date: 07/06/2024 07:30 Report Date: 07/06/2024 [...] M.D. Signed By:07/06/24 0758 DD/ 0756 TD/TT: Paint Department Supervisor: us Teresita Hodge DO [facility] IMAG[facility] Final Result documented in this encounter Visit Diagnoses Not on filedocumented in this encounter
--- OUTSIDE RECORDS SUMMARY | 2024-12-24 08:47 | XMS_ITS | Encounter Summary ---
Author Organization [facility] Address [address] [place] [address] Care Team Providers Care Electronic Wirer Name Role Phone Unavailable Primary Care Provider Unavailabl e Encounter Details Date Type Department Care Team (Late st Contact Info) Description 07/06/2024 Abstract [facility] OB [address] [facility] [place] [phone] Andrzej Hodge, DO [address] [facility] [place] [address] Social History Tobacco Use Types Packs/Day Years [...]
--- OUTSIDE RECORDS SUMMARY | 2024-12-24 08:47 | XMS_ITS | Encounter Summary ---
Author Organization [facility] [employer] [facility] tem Address [id number] [address] [place] [address] Care Team Providers Care Procedures Rn Name Role Phone Unavailable Primary Care Provider Unavailabl e Encounter Details Date Type Department Care Team (Late st Contact Info) Description 09/13/2024 Orders Only Maternal- Medicine at [facility] [address] [place] [phone] Ref Prov, [place] [address] Social History Tobacco Use Types Packs/Day Years [...] ORDERABLES Stella l Result Performing Organization Address City/State/[facility] Co de Phone Number MANUALLY TRANSCRIBED RESULTS documented in this encounter Visit Diagnoses Not on filedocumented in this encounter
--- OUTSIDE RECORDS SUMMARY | 2024-12-24 08:47 | XMS_ITS | Encounter Summary ---
Author Organization [facility] Address [address] [place] [address] Care Team Providers Care Corporate Coordinator Name Role Phone Unavailable Primary Care Provider Unavailabl e Encounter Details Date Type Department Care Team (Late st Contact Info) Description 10/24/2024 Abstract [facility] OB [address] [facility] [place] [phone] Andrzej Hodge, DO [address] [facility] [place] [address] Social History Tobacco Use Types Packs/Day Years [...]
--- OUTSIDE RECORDS SUMMARY | 2024-12-24 08:47 | XMS_ITS | Encounter Summary ---
Author Organization [facility] Address [address] [place] [address] Care Team Providers Care Cupola Repairer Name Role Phone Unavailable Primary Care Provider Unavailabl e Encounter Details Date Type Department Care Team (Late st Contact Info) Description 06/22/2024 Clinisync Result Encounter [facility] External Department Unsolicited Teresita Hodge, DO [address] [place] [address] Social History Tobacco Use Types Packs/Day Years [...] PM EST Narrative 06/22/2024 1:12 [place] [address] Ultrasound Report Signed Patient: ALEXADNRA HIGGINS MR#: [id number] : 2000 Acct:[id number] Age/Sex: 23 / F ADM Date: 06/22/24 Loc: US Attending Dr: Teresita Hodge D.O. Ordering Physician: Teresita Hodge D.O. Date of Service: 06/22/24 Procedure(s): US OB cervical length Accession Number(s): [id number] cc: Teresita Hodge D.O.; Physician,Non-Staff Viri The [place] [id number] Patient Name: ALEXANDRA HIGGINS MRN: [id number] date: 2000 Sex: F Assigned Patient Location: US Current Patient Location: US Accession/Order Number: [id number] Exam Date: 06/22/2024 10:15 Report Date: 06/22/2024 [...] 2.9 cm on 05/22/2024) Electronically authenticated by: ASHLEY JADE Date: 06/22/2024 13:10 Dictated By: Ashley Jade M.D. Signed By: 06/22/24 1312 DD/ 1310 TD/TT: Chief Counsel: Procedure Note Radiology, Radiologist, MD - 06/22/2024 The [place] [id number] Ultrasound Report Signed Patient: ALEXANDRA HIGGINS DMR#: [id number] : 2000Acct:[id number] Age/Sex: 23 / FADM Date: 06/22/24 Loc: US Attending Dr: Teresita Hodge D.O. Ordering Physician: Teresita Hodge D.O. Date of Service: 06/22/24 Procedure(s): US OB cervical length Accession Number(s): [id number] cc: Teresita Hodge D.O.; Physician,Non-Staff Viri [place] [address] Patient Name: ALEXANDRA HIGGINS MRN: [id number] date: 2000 Sex: F Assigned Patient Location: US Current Patient Location: US Accession/Order Number: [id number] Exam Date: 06/22/2024 10:15 Report Date: 06/22/2024 [...] 2.9 cm on 05/22/2024) Electronically authenticated by: ASHLEY JADE Date: 06/22/2024 13:10 Dictated By: Ashley Jade M.D. Signed By:06/22/24 1312 DD/ 1310 TD/TT: Chief Counsel: us Teresita Hodge DO [facility] Final Result documented in this encounter Visit Diagnoses Not on filedocumented in this encounter
--- OUTSIDE RECORDS SUMMARY | 2024-12-24 08:47 | XMS_ITS | Clinical Summary ---
Author Organization [facility] Address [address] [place] [address] Care Team Providers Care Sericulturist Name Role Phone Unavailable Primary Care Provider [...] Encounters Date Type Department Care Team Description 12/21/2024 Abstract [facility] OB [address] [place] [phone] Mitzi Yusuf, HEALTH INSPECTOR FOOD 12/21/2024 Telephone [facility] OB [address] [place] [address] Mitzi Yusuf, HEALTH INSPECTOR FOOD 12/20/2024 9:50 AM EDT Routine [facility] OB [address] [place] [address] Amy Abebe PA 37 weeks gestation of ; Third trimester 12/19/2024 Clinisync Result Encounter [facility] External Department Unsolicited Andrzej Hodge, DO 12/11/2024 2:30 PM EDT Routine [facility] OB [address] [facility] [place] [address] Andrzej Hodge, DO 35 weeks gestation of ; Third trimester 12/11/2024 Clinisync Result Encounter [facility] External Department Unsolicited Andrzej Hodge, DO 12/11/2024 Bamboo flowsheet [facility] OB [address] [place] [address] Andrzej Hodge, DO 12/04/2024 1:40 PM EDT Routine [facility] [address] [place] [address] Andrzej Hodge, DO Third trimester ; 34 weeks gestation of 12/04/2024 Bamboo flowsheet [facility] [address] [place] [address] Andrzej Hodge, DO 11/27/2024 Telephone [facility] [address] [place] [address] Andrzej Hodge, DO 11/26/2024 Clinisync Result Encounter NOMS External Department Unsolicited Ayesha, Andrzej, DO 11/26/2024 Telephone [facility] OB [address] [facility] [place] [address] Andrzej Hodge, DO 11/22/2024 Telephone [facility] OB [address] [facility] [place] [address] Mitzi Yusuf LPN 11/21/2024 1:50 PM EDT Routine [facility] OB [address] [facility] [place] [address] Cinthia Wang, ED Third trimester ; 33 weeks gestation of 11/21/2024 Bamboo flowsheet [facility] OB [address] [place] [address] [place] [address] Cinthia Wang, ED 11/07/2024 11:20 AM EDT Routine [facility] OB [address] [place] [address] [place] [address] Andrzej Hodge, DO Third trimester ; 31 weeks gestation of ; Short cervix affecting 11/07/2024 Bamboo flowsheet [facility] OB [address] [place] [address] [place] [address] Andrzej Hodge, DO 10/24/2024 11:30 AM EDT Routine [facility] OB [address] [facility] [place] [address] Amy Abebe PA Third trimester ; 29 weeks gestation of 10/24/2024 Abstract [facility] OB [address] [facility] [place] [address] Andrzej Hodge, DO 10/24/2024 Bamboo flowsheet [facility] OB [address] [facility] [place] [address] Amy Abebe PA 10/23/2024 Travel 10/15/2024 Clinisync Result Encounter [facility] External Department Unsolicited Andrzej Hodge, DO 10/15/2024 Telephone [facility] OB [address] [facility] [place] [address] Andrzej Hodge DO 10/10/2024 Clinisync Result Encounter [facility]OMS External Department Unsolicited Amy Abebe PA 10/09/2024 11:10 AM EDT Routine [facility] [address] [place] [address] Andrzej Hodge DO Second trimester ; 26 weeks gestation of 10/09/2024 Bamboo flowsheet [facility] [address] [place] [address] Andrzej Hodge DO from Last 3 Months Family History Medical [...] 12.8 oz) 025 10:05 AM EDT Height 161.3 cm (5' 3.5 ) 11/10/2022 12 :00 PM EDT Body Mass Index 32.75 11/10/2022 12:00 PM EDT Plan of Treatment Not on file Procedures Procedure Name Priority Date/Time Associated Diagnosis Comments POCT URINALYSIS DIPSTICK Routine 12/20/2024 10:13 AM EDT 37 weeks gestation of Third trimester [facility] URINE MICROSCOPIC ONLY Routine 12/19/2024 11:00 PM EDT [facility] UA (CLEAN/CATCH) ADMINISTRATIVE OFFICE MANAGER/MICRO IF IND. Routine 12/19/2024 11:00 PM EDT TBH URINE MICROSCOPIC ONLY Routine 12/11/2024 7:50 PM EDT [facility] UA (CLEAN/CATCH) ADMINISTRATIVE OFFICE MANAGER/MICRO IF IND. Routine 12/11/2024 7:50 PM EDT POCT URINALYSIS DIPSTICK Routine 12/11/2024 3:09 PM EDT 35 weeks gestation of Third trimester TBH URINE MICROSCOPIC ONLY Routine 11/26/2024 12:55 PM EDT TBH UA (CLEAN/CATCH) ADMINISTRATIVE OFFICE MANAGER/MICRO IF IND. Routine 11/26/2024 12:55 PM EDT POCT URINALYSIS DIPSTICK Routine 11/21/2024 3:05 PM EDT Third trimester POCT URINALYSIS DIPSTICK Routine 11/07/2024 11:44 AM EDT Third trimester TB[facility] URINE MICROSCOPIC ONLY Routine 10/15/2024 1:00 PM EDT TBH UA (CLEAN/CATCH) ADMINISTRATIVE OFFICE MANAGER/MICRO IF IND. Routine 10/15/2024 1:00 PM EDT GLUCOSE 1 HOUR Routine 10/10/2024 12:24 PM EDT ALL CBC WITH AUTO DIFF Routine 10/10/2024 12:24 PM EDT from Last 3 Months Results * (ABNORMAL) POCT urinalysis dipstick manually resulted (12/20/2024 10:13 AM EDT) Only the most recent of4 resultswithin the time period is included. Color, [...] TEST ENTER/EDIT OR DERABLES Final Result * (ABNORMAL) TBH URINE MICROSCOPIC ONLY (12/19/2024 11:00 PM EDT) Only the most recent of4 resultswithin the time period is included. TBH WBC 0-2(A) NONE SEEN #/HPF TBH [...] Narrative CLIN[facility] - 12/19/2024 11:31 PM EDT us Andrzej Hodge DO CLINIS[facility]NC Final Result [facility] TB[facility] * (ABNORMAL) TBH UA (CLEAN/CATCH) ADMINISTRATIVE OFFICE MANAGER/MICRO IF IND. (12/19/2024 11:00 PM EDT) Only the most recent of4 resultswithin the time period is included. COLOR URINE YELLOW YELLOW TBH CLARITY URINE [...] Narrative CLINISYNC - 12/19/2024 11:31 PM EDT us Andrzej Ruizo DO [facility] GLUCOSE 1 HOUR (10/10/2024 12:24 PM EDT) GLUCOSE 1 HOUR 114 <130 mg/dL TB 10/10/2024 12:2 4 PM EDT 10/10/2024 12:25 PM EDT Narrative [facility]IN[facility]YNC - 10/10/2024 1:07 PM EDT Amy VILLATORO LAB BLOOD ORDERABLES Final [facility]ul [facility] * (ABNORMAL) ALL CBC WITH AUTO DIFF (10/10/2024 12:24 PM EDT) TB WBC 7.8 4.0 - 11.0 10 3/uL TBH TB RBC 3.88(L) 4.20 - 5.40 10 6/uL TBH TBH HGB 10.3(L) 12.0 - 16.0 g/dL TBH TBH HCT 32.4(L) 36.0 - 48.0 % TBH TBH MCV 83.5 81.0 - 99.0 fL TBH TBH MCH 26.5(L) 26.7 - 34.0 pg TBH TBH MCHC 31.8 29.9 - 35.2 g/dL TBH TBH RDW 14.7 11.0 - 15.0 % TBH TBH PLT 292 150 - 450 10 3/uL TBH TBH MPV 10.3 9.5 - 13.5 fL TBH [...] Narrative CLINISYNC - 10/10/2024 12:49 PM EDT Amy VILLATORO CLINISYNC Final Result [facility] from Last 3 Months Insurance [facility] MEDICAID [place] Member Subscriber Plan / Payer (Ef fective 2022-Present) Name:Alexandra Higgins Relation to Subscriber:Self Name:Gita Higginsnoun Payer ID:Not on file Group ID:[id number] Type:Not on file Address: [id number] [place] [id number]
--- OUTSIDE RECORDS SUMMARY | 2024-12-24 08:47 | XMS_ITS | Encounter Summary ---
Author Organization [facility] Address [address] [place] [address] Care Team Providers Care Spiral Tube Winder Helper Name Role Phone Unavailable Primary Care Provider Unavailabl e Encounter Details Date Type Department Care Team (Late st Contact Info) Description 08/02/2024 Orders Only [facility] [address] [place] [place] [address] Aaliyah Lunsford LPN [address] [place], [place] [id number] Social History Tobacco Use Types Packs/Day Years [...] AM EST) Swab Cervical swab / Unknown Amy VILLATORO LAB CYTOLOGY ORDERABLES Final Re sult EXTERNAL LAB documented in this encounter Visit Diagnoses Not on filedocumented in this encounter
--- OUTSIDE RECORDS SUMMARY | 2024-12-24 08:48 | XMS_ITS | Encounter Summary ---
Author Organization [facility] Address [address] [place] [address] Care Team Providers Care Assembler 1St Shift Name Role Phone Unavailable Primary Care Provider Unavailabl e Encounter Details Date Type Department Care Team (Late st Contact Info) Description 05/22/2024 Abstract [facility] OB [address] [facility] [place] [phone] Andrzej Hodge, DO [address] [facility] [address] Social History Tobacco Use Types Packs/Day Years [...]
--- OUTSIDE RECORDS SUMMARY | 2024-12-24 08:48 | XMS_ITS | Encounter Summary ---
Author Organization [facility] Address [address] [place] [address] Care Team Providers Care Spanish Professor Name Role Phone Unavailable Primary Care Provider Unavailabl e Encounter Details Date Type Department Care Team (Late st Contact Info) Description 09/30/2023 Clinisync Result Encounter [facility] External Department Unsolicited Teresita Hodge, DO [address] [facility] [place] [address] Social History Tobacco Use Types Packs/Day Years [...] EST documented in this encounter Results * OB GROWTH (09/30/2023 9:42 AM EST) Anatomical Region Laterality Modality Other 09/30/2023 9:42 AM EST Narrative 09/30/2023 9:45 AM EST The [address] [address] Ultrasound Report Signed Patient: ALEXANDRA HIGGINS MR#: [id number] : 2000 Acct:[id number] Age/Sex: 23 / F ADM Date: 09/30/23 Loc: [facility] Attending Dr: Teresita Hodge D.O. Ordering Physician: Teresita Hodge D.O. Date of Service: 09/30/23 Procedure(s): US OB growth Accession Number(s): [id number] cc: Teresita Hodge D.O.; Physician,Non-Staff M.DConcetta [place] [address] Patient Name: ALEXANDRA HIGGINS MRN: [id number] date: 2000 Sex: F Assigned Patient Location: [facility] Current Patient Location: [facility] Accession/Order Number: [id number] Exam Date: 09/30/2023 09:00 Report Date: 09/30/2023 [...] M.D. Signed By: 09/30/2345 DD/ 1 TD/TT: Candy Supervisor: Procedure Note Radiology, Radiologist, - 09/30/[address] [address] Ultrasound Report Signed Patient: ALEXANDRA HIGGINS DMR#: [id number] : 2000Acct:[id number] Age/Sex: 23 / FADM Date: 09/30/23 Loc: [facility] Attending Dr: Teresita Hodge D.O. Ordering Physician: Teresita Hodge D.O. Date of Service: 09/30/23 Procedure(s): US OB growth Accession Number(s): [id number] cc: Teresita Hodge D.O.; Physician,Non-Staff Viri The [place] [id number] Patient Name: ALEXANDRA HIGGINS MRN: [facility]:[id number] date: 2000 Sex: F Assigned Patient Location: [facility] Current Patient Location: [facility] Accession/Order Number: [id number] Exam Date: 09/30/2023 09:00 Report Date: 09/30/2023 09:42 At the request of: TERESITA HODGE Procedure: US OB growth EXAMINATION: US OB growth HISTORY: LGA, VAGINAL DISCHARGE COMPARISON: Ultrasound OB follow-up 07/26/2023, ultrasound OB /4/2023 FINDINGS: Heart Rate: 156.0 bpm Number: 1.0 [...] 09:42 Dictated By: Arias Jade M.D. Signed By:09/30/2345 DD/ TD/TT: Candy Supervisor: us Teresita Ayesha DO [facility]AG[facility] Final Result documented in this encounter Visit Diagnoses Not on filedocumented in this encounter
--- OUTSIDE RECORDS SUMMARY | 2024-12-24 08:48 | XMS_ITS | Encounter Summary ---
Author Organization [facility] Address [address] [place] [address] Care Team Providers Care Timber Skidder Name Role Phone Unavailable Primary Care Provider Unavailabl e Encounter Details Date Type Department Care Team (Late st Contact Info) Description 10/19/2023 Abstract [facility] OB [address] [facility] [place] [phone] Andrzej Hodge, DO [address] [facility] [place] [address] Social History Tobacco Use Types Packs/Day Years [...]
--- OUTSIDE RECORDS SUMMARY | 2024-12-24 08:48 | XMS_ITS | Encounter Summary ---
Author Organization [facility] Address [address] [place] [address] Care Team Providers Care Installers Mechanical Name Role Phone Unavailable Primary Care Provider Unavailabl e Encounter Details Date Type Department Care Team (Late st Contact Info) Description 06/07/2024 Abstract [facility] OB [address] [facility] [phone] Andrzej Hodge, DO [address] [facility] [place] [address] Social History Tobacco Use Types Packs/Day Years [...]
--- OUTSIDE RECORDS SUMMARY | 2024-12-24 08:48 | XMS_ITS | Encounter Summary ---
Author Organization [facility] Address [address] [place] [address] Care Team Providers Care Funeral Prearrangement Counselor Name Role Phone Unavailable Primary Care Provider Unavailabl e Encounter Details Date Type Department Care Team (Late st Contact Info) Description 06/07/2024 Abstract [facility] [address] [facility] [place] [phone] Andrzej Hodge, DO [address] [facility] [place] [address] Social History Tobacco Use Types Packs/Day Years [...]
--- OUTSIDE RECORDS SUMMARY | 2024-12-24 08:48 | XMS_ITS | Encounter Summary ---
Author Organization [facility] Address [address] [place] [address] Care Team Providers Care Seafood And Service Meat Manager Name Role Phone Unavailable Primary Care Provider Unavailabl e Encounter Details Date Type Department Care Team (Late st Contact Info) Description 12/21/2024 Abstract [facility] OB [address] [place] [address] [place] [phone] Mitzi Yusuf LPN Social History Tobacco Use Types Packs/Day Years [...]
--- OUTSIDE RECORDS SUMMARY | 2024-12-24 08:48 | XMS_ITS | Encounter Summary ---
Author Organization [facility] Address [address] [place] [address] Care Team Providers Care Tail Edger Name Role Phone Unavailable Primary Care Provider Unavailabl e Encounter Details Date Type Department Care Team (Late st Contact Info) Description 12/21/2024 Telephone [facility] OB [address] [place] [address] [place] [phone] Mitzi Yusuf LPN Social History Tobacco Use [...]
--- OUTSIDE RECORDS SUMMARY | 2024-12-24 08:48 | XMS_ITS | Encounter Summary ---
Author Organization [facility] Address [address] [place] [address] Care Team Providers Care Brand Marketing Intern Name Role Phone Unavailable Primary Care Provider Unavailabl e Encounter Details Date Type Department Care Team (Late st Contact Info) Description 05/22/2024 Abstract [facility] OB [address] [facility] [place] [phone] Andrzej Hodge, DO [address] [facility] [place] [address] Social History Tobacco Use Types Packs/Day Years [...]
--- OUTSIDE RECORDS SUMMARY | 2024-12-24 08:48 | XMS_ITS | Encounter Summary ---
Author Organization [facility] Address [address] [place] [address] Care Team Providers Care Seconds Grader Name Role Phone Unavailable Primary Care Provider Unavailabl e Encounter Details Date Type Department Care Team (Late st Contact Info) Description 06/07/2024 Abstract [facility] OB [address] [facility] [place] [phone] Andrzej Hodge, DO [address] [facility] [place] [address] Social History Tobacco Use Types Packs/Day Years [...]
--- OUTSIDE RECORDS SUMMARY | 2024-12-24 08:48 | XMS_ITS | Encounter Summary ---
Author Organization [facility] Address [address] [place] [address] Care Team Providers Care Director Of Research And Development Name Role Phone Unavailable Primary Care Provider Unavailabl e Encounter Details Date Type Department Care Team (Late st Contact Info) Description 05/22/2024 Abstract [facility] OB [address] [facility] [place] [phone] Andrzej Hodge, DO [address] [facility] [place] [address] Social History Tobacco Use Types Packs/Day Years [...]
--- OUTSIDE RECORDS SUMMARY | 2024-12-24 08:48 | XMS_ITS | Encounter Summary ---
Author Organization [facility] Address [address] [place] [address] Care Team Providers Care Trimming Press Operator Name Role Phone Unavailable Primary Care Provider Unavailabl e Encounter Details Date Type Department Care Team (Late st Contact Info) Description 06/07/2024 Abstract [facility] OB [address] [facility] [place] [phone] Andrzej Hodge, DO [address] [facility] [place] [address] Social History Tobacco Use Types Packs/Day Years [...]
--- OUTSIDE RECORDS SUMMARY | 2024-12-24 08:48 | XMS_ITS | Encounter Summary ---
Author Organization [facility] Address [address] [place] [address] Care Team Providers Care Lasting Room Machine Operator Name Role Phone Unavailable Primary Care Provider Unavailabl e Encounter Details Date Type Department Care Team (Late st Contact Info) Description 06/20/2024 Abstract [facility] OB [address] [facility] [place] [phone] Andrzej Hodge, DO [address] [facility] [place] [address] Social History Tobacco Use Types Packs/Day Years [...]
--- OUTSIDE RECORDS SUMMARY | 2024-12-24 08:48 | XMS_ITS | Encounter Summary ---
Author Organization [facility] Address [address] [place] [address] Care Team Providers Care Customs Inspector Name Role Phone Unavailable Primary Care Provider Unavailabl e Encounter Details Date Type Department Care Team (Late st Contact Info) Description 05/22/2024 Abstract [facility] OB [address] [facility] [place] [phone] Andrzej Hodge, DO [address] [facility] [place] [address] Social History Tobacco Use Types Packs/Day Years [...]
[2024-12-24 10:01] LABS: Hematocrit 29.9 % (36.0-48.0); Hemoglobin 9.5 g/dL (12.0-16.0); Mean Corpuscular HGB Conc 31.8 g/dL (29.9-35.2); Mean Corpuscular Hemoglobin 25.7 pg (26.7-34.0); Mean Platelet Volume 11.3 fL (9.5-13.5); Platelet Count 243 10^3/uL (150-450); Red Blood Count 3.69 10^6/uL (4.20-5.40); Red Cell Distribution Width 14.8 % (11.0-15.0); White Blood Count 8.8 10^3/uL (4.0-11.0)
[2024-12-24 10:53] LABS: Bilirubin Urine NEGATIVE (NEGATIVE); Blood Urine LARGE (NEGATIVE); Clarity Urine CLEAR (CLEAR); Color Urine LT. YELLOW (YELLOW); Glucose Urine UA NEGATIVE (NEGATIVE); Ketones Urine NEGATIVE (NEGATIVE); Leukocyte Esterase Urine MODERATE (NEGATIVE); Nitrite Urine NEGATIVE (NEGATIVE); Protein Urine NEGATIVE (NEG/TRACE); Urine Microscopic Indicated YES; Urobilinogen Urine 0.2 EU/dL (0.2-1.0); pH Urine 6.5 (5.0-9.0)
[2024-12-24 11:10] LABS: Bacteria Urine TRACE #/HPF (NONE SEEN); Mucus Urine TRACE (NONE SEEN)
[2024-12-24 11:11] LABS: Cast Seen? NONE SEEN #/LPF (NONE SEEN); Crystals Seen? None Seen #/HPF (None Seen); Squamous Epithelial Cell Urine RARE #/LPF (NONE/RARE); Urine Culture Indicated YES-LC
[2024-12-24 11:30] LABS: Amphetamine Screen Urine NEGATIVE (NEGATIVE); Barbiturates Screen Urine NEGATIVE (NEGATIVE); Benzodiazepines Screen Urine NEGATIVE (NEGATIVE); Buprenorphine Screen Urine NEGATIVE (NEGATIVE); Cannabinoid Screen Urine NEGATIVE (NEGATIVE); Cocaine Screen Urine NEGATIVE (NEGATIVE); Methadone Screen Urine NEGATIVE (NEGATIVE); Methamphetamines Screen Urine NEGATIVE (NEGATIVE); Opiate Screen Urine NEGATIVE (NEGATIVE); Oxycodone Screen Urine NEGATIVE (NEGATIVE); Phencyclidine Screen Urine NEGATIVE (NEGATIVE); Tricyclic Antidepressant Urine NEGATIVE (NEGATIVE)
[2024-12-24] MEDS: 0.9 % SODIUM CHLORIDE 1,000 ML 125 ML IV (13:45)
[2024-12-24] MEDS: NALBUPHINE HCL 10 MG/ML AMPULE IV ×2 (13:46→16:13)
[2024-12-24] MEDS: OXYTOCIN/0.9 % SODIUM CHLORIDE 20 UNITS/1,000 ML PLAST..BAG 125 UNIT IV (16:49)
--- NOTE | 2024-12-24 16:56 | PM.OBPRCVD ---
Procedure Intrapartal events: None Induction method: none Delivery augmentation: rupture of membranes Delivery monitor: external FHT and external uterine Route of delivery: L&D Laceration Description: vaginal - 1st degree Delivery repair: Vicryl Estimated blood loss (mL): 300 Anesthesia type: None Disposition: PACU Delivery date: 12/24/24 Gender: male presentation: vertex Placental delivery description: Spontaneous cord description: 3 Vessels
[2024-12-24] MEDS: GLYCERIN/WITCH HAZEL PADS 1 PAD TOPICAL (17:23)
[2024-12-24] MEDS: BENZOCAINE/MENTHOL 85 GRAM SPRAY BOTTLE 1 APPLIC TOPICAL (17:23)
[2024-12-24] MEDS: ACETAMINOPHEN 325 MG TABLET 650 MG PO (23:23)
[2024-12-25] MEDS: IBUPROFEN 600 MG TABLET PO ×2 (02:11→09:48)
[2024-12-25 06:45] LABS: Basophils Percent Auto 0.2 % (0.2-2.0); Eosinophils Percent Auto 0.3 % (0.9-7.0); Hematocrit 29.3 % (36.0-48.0); Hemoglobin 9.2 g/dL (12.0-16.0); Immature Granulocytes Abs Auto 0.03 10^3/uL (0.00-0.03); Immature Granulocytes Pct Auto 0.3 % (0.0-0.5); Lymphocytes Absolute Auto 2.2 10^3/uL (1.2-3.8); Lymphocytes Percent Auto 22.8 % (20.5-60.0); Mean Corpuscular HGB Conc 31.4 g/dL (29.9-35.2); Mean Corpuscular Hemoglobin 25.4 pg (26.7-34.0); Mean Corpuscular Volume 80.9 fL (81.0-99.0); Mean Platelet Volume 11.4 fL (9.5-13.5); Neutrophils Absolute Auto 6.2 10^3/uL (1.4-6.5); Neutrophils Percent Auto 65.4 % (43.0-75.0); Platelet Count 222 10^3/uL (150-450); Red Blood Count 3.62 10^6/uL (4.20-5.40); Red Cell Distribution Width 14.9 % (11.0-15.0); White Blood Count 9.5 10^3/uL (4.0-11.0)
--- NOTE | 2024-12-25 08:51 | PM.OBPN ---
OB - PN: Subj Subjective Patient comments: no complaints [place] status: doing well [place] feeding status: exclusively Exam Constitutional Vital Signs, click to edit/add: Last Vital Signs Temp 98.5 F 12/24/24 23:24 Pulse 90 12/24/24 23:24 Resp 16 12/24/24 09:27 BP 117/78 12/24/24 23:24 O2 Del Method Room Air 12/24/24 23:30 Documenting provider has reviewed patient's vital signs: yes Common normals: no apparent distress General appearance: cooperative Orientation/consciousness: Yes awake, Yes oriented to person, Yes oriented to place and Yes oriented to time HENMT Common normals: normocephalic Eye Common normals: EOMs intact bilaterally General eye: normal appearance of both eyes Visual acuity: acuity normal Neck & C-Spine Common normals: full ROM General: normal visual inspection Lymph Lymphatic: no lymphadenopathy noted Chest Common normals: inspection of chest normal Respiratory Common normals: normal respiratory effort Effort & inspection: able to speak in complete sentences Auscultation: clear to auscultation bilaterally Cardio Common normals: regular rate and regular rhythm Rate: regular rate Rhythm: regular rhythm GI Common normals: soft to palpation Inspection: normal to inspection Auscultation: normoactive bowel sounds Palpation: soft Percussion: normal to percussion Common normals: no CVA tenderness Back & Pelvis Common normals: no CVA tenderness Thoracic spine/upper back: normal to inspection Extremity Common normals: normal to inspection General: normal exam except as noted Neuro Common normals: oriented x3 Sensorium/orientation: awake, alert, oriented to person, oriented to place and oriented to time Psych Common normals: mental status grossly normal, thought process normal, cooperative, affect normal, speech normal, activity/motor behavior normal, denies hallucinations, denies homicidal ideation and denies suicidal ideation Speech: normal speech Results Labs Labs: Short CBC 12/24/24 12/25/24 Range/Units 09:51 06:29 WBC 8.8 9.5 (4.0-11.0) 10^3/uL Hgb 9.5 L 9.2 L (12.0-16.0) g/dL Hct 29.9 L 29.3 L (36.0-48.0) % Plt Count 243 222 (150-450) 10^3/uL Urine 12/24/24 Range/Units 10:30 Urine Color Lt. yellow (YELLOW) Urine Clarity Clear (CLEAR) Urine pH 6.5 (5.0-9.0) Ur Specific [place] 1.020 (1.005-1.025) Urine Protein Negative (NEG/TRACE) mg/dL Urine Glucose (UA) Negative (NEGATIVE) mg/dL OB - PN: A/P Assessment and Plan (1) Term : Plan - Vaginal Delivery day: 1 Plan: discharge home Time Spent with Patient Time: Total time spent is greater than 50% in coordination of care (as documented) at patient's floor/unit and/or counseling patient: Total time spent with greater than 50% in coordination of care (as documented) at patient's floor/unit and/or counseling patient: less than 15 minutes
[2024-12-25 08:52] VITALS: BP 122/81; PULSE 90
[2024-12-25] MEDS: ACETAMINOPHEN 325 MG TABLET 650 MG PO (17:27)
[2024-12-25 17:28] VITALS: BP 116/72; PULSE 81; TEMP 35.7
[2024-12-25 17:30] VITALS: TEMP 36.7
== END 2024-12-25 18:40 | disposition home or self-care (01) | DRG 560 ==
PROVIDERS: Admitting Provider Obstetrics & Gynecology; Visit Provider Obstetrics & Gynecology
DX: O70.0 First degree perineal laceration during delivery (principal); Z3A.37 37 weeks gestation of pregnancy; Z37.0 Single live birth; Z87.891 Personal history of nicotine dependence
CPT/HCPCS: 36415; 59050; 59410; 80307; 81001; 85025; 85027; 86850; 86900; 86901; 87086; J2300

== ENCOUNTER 2025-05-06 10:05 | Emergency (ER) | payer MEDICAID, SELFPAY ==
--- OUTSIDE RECORDS SUMMARY | 2025-05-06 10:13 | XMS_ITS | Encounter Summary ---
Author Organization [facility] Address [address] [place] [address] Care Team Providers Care Lubrication Equipment Servicer Name Role Phone Unavailable Primary Care Provider Unavailabl e Encounter Details Date Type Department Care Team (Late st Contact Info) Description 07/04/2023 Clinisync Result Encounter [facility] External Department Unsolicited Teresita Hodge, [address], [place] [address] Social History Tobacco Use Types Packs/Day Years [...] Care Team (Late st Contact Info) Description 05/21/2025 1:30 PM EDT Procedure Visit [facility] [address] [place] [phone] Teresita Hodge DO [address], [place] [address] 07/31/2025 2:00 PM EST Office Visit [facility] [address] [facility] [place] [address] Teresita Hodge DO [address] [facility] [place] [address] documented as of this encounter Procedures Procedure Name Priority Date/Time Associated Diagnosis Comments US AMNIOTIC FLUID VOLUME 07/04/2023 6:53 PM EST documented in this encounter Results * US AMNIOTIC FLUID VOLUME (07/04/2023 6:53 PM EST) Anatomical Region Laterality Modality Radiographic Priya ging 07/04/2023 6:53 PM EST Narrative 07/04/2023 6:56 [place] [address] Ultrasound Report Signed Patient: ALEXANDRA HIGGINS MR#: [id number] : 2000 Acct:[id number] Age/Sex: 22 / F ADM Date: 07/04/23 Loc: [facility]BCO Attending Dr: Teresita Hodge D.O. Ordering Physician: Teresita Hodge D.O. Date of Service: 07/04/23 Procedure(s): US OB amniotic fluid vol Accession Number(s): [id number] cc: Teresita Hodge D.O.; Physician,Non-Staff M.D. The [address] [address] Patient Name: ALEXANDRA HIGGINS MRN: [id number] date: 2000 Sex: F Assigned Patient Location: [facility]O Current Patient Location: [facility] Accession/Order Number: [id number] Exam Date: 07/04/2023 17:45 Report Date: 07/04/2023 18:53 At the request of: TERESITA HODGE Procedure: US OB amniotic fluid vol EXAM: US OB cervical length, US OB amniotic fluid vol 07/04/2023 3:50 PM PST, [id number], [id number] HISTORY: r/o srom. TECHNIQUE: Multiple longitudinal and [...] Sullivan Signed By: 07/04/231855 DD/ 52 TD/TT: Propulsion Engineer: Procedure Note Radiology, Radiologist, MD - 07/04/2023 [place] [address] Ultrasound Report Signed Patient: ALEXANDRA HIGGINS [facility]#: [id number] : 2000Acct:[id number] Age/Sex: 22 / FADM Date: 07/04/23 Loc: [facility] Attending Dr: Teresita Hodge D.O. Ordering Physician: Teresita Hodge D.O. Date of Service: 07/04/23 Procedure(s): US OB amniotic fluid vol Accession Number(s): [id number] cc: Teresita Hodge D.O.; Physician,Non-Staff M.D. The [place] [id number] Patient Name: ALEXANDRA HIGGINS MRN: [id number] date: 2000 Sex: F Assigned Patient Location: [facility] Current Patient Location: [facility] Accession/Order Number: [id number] Exam Date: 07/04/2023 17:45 Report Date: 07/04/2023 18:53 At the request of: TERESITA HODGE Procedure: US OB amniotic fluid vol EXAM: US OB cervical length, US OB amniotic fluid vol 07/04/2023 3:50 PMPST, [id number], [id number] HISTORY: r/o srom. TECHNIQUE: Multiple longitudinal and [...] Zee Sullivan Signed By:07/04/231855 DD/ 52 TD/TT: Propulsion Engineer: us Teresita Hodge DO IMG XR PROCEDURES Final Result documented in this encounter Visit Diagnoses Not on filedocumented in this encounter
--- OUTSIDE RECORDS SUMMARY | 2025-05-06 10:13 | XMS_ITS | Clinical Summary ---
Author Organization Epic[employer] Address [id number] [address] [place] [address] Care Team Providers Care Green Pipefitter Name Role Phone Unavailable Primary Care Provider [...] total) by mouth in the morning. Active [id number] AC-DHA ORAL Take by mouth. Active Active Problems Problem Noted Date Diagnosed Date Short cervix affecting with delivery 0 09/14/2024 Family History Medical History Relation Name Comments [...] money to get more. Never True 09/14/2024 Comments No Sex and Gender Information Value [...] 07/16/2027 07/16/2024 Medical Devices Not on file Insurance [employer]
--- OUTSIDE RECORDS SUMMARY | 2025-05-06 10:13 | XMS_ITS | Encounter Summary ---
Author Organization [facility] Address [address] [place] [address] Care Team Providers Care Sales Stock Associate Name Role Phone Unavailable Primary Care Provider Unavailabl e Encounter Details Date Type Department Care Team (Late Contact Info) Description 07/26/2023 Clinisync Result Encounter [facility]OMS External Department Unsolicited Teresita Hodge, [address], [place] [address] Social History Tobacco Use Types Packs/Day Years [...] Visit [facility] [address] [place] [phone] Teresita Hodge DO [address], [place] [address] 07/31/2025 2:00 PM EST Office Visit [facility] [address] [facility] [place] [address] Teresita Hodge DO [address] [facility] [place] [address] documented as of this encounter Procedures Procedure Name Priority Date/Time Associated Diagnosis Comments US OB FOLLOW UP 07/26/2023 2:44 PM EST documented in this encounter Results * US OB FOLLOW UP (07/26/2023 2:44 PM EST) Anatomical Region Laterality Modality Radiographic Priya ging 07/26/2023 2:44 PM EST Narrative 07/26/2023 2:46 PM EST The [address] [address] Ultrasound Report Signed Patient: ALEXANDRA HIGGINS MR#: [id number] : 2000 Acct:[id number] Age/Sex: 23 / F ADM Date: 07/26/23 Loc: US Attending Dr: Teresita Hodge D.O. Ordering Physician: Teresita Hodge D.O. Date of Service: 07/26/23 Procedure(s): US OB follow up Accession Number(s): [id number] cc: Teresita Hodge D.O.; Physician,Non-Staff M.D. The [address] [address] Patient Name: ALEXANDRA HIGGINS MRN: [id number] date: 2000 Sex: F Assigned Patient Location: US Current Patient Location: US Accession/Order Number: [id number] Exam Date: 07/26/2023 12:55 Report Date: 07/26/2023 [...] Dictated By: Pippa Ortega M.D. Signed By: 07/26/231445 DD/ 43 TD/TT: Retail Pharmacist: Procedure Note Radiology, Radiologist, MD - 07/26/2023 [place] [address] Ultrasound Report Signed Patient: ALEXANDRA HIGGINS DMR#: [id number] : 2000Acct:[id number] Age/Sex: 23 / FADM Date: 07/26/23 Loc: US Attending Dr: Teresita Hodge D.O. Ordering Physician: Teresita Hodge D.O. Date of Service: 07/26/23 Procedure(s): US OB follow up Accession Number(s): [id number] cc: Teresita Hodge D.O.; Physician,Non-Staff Viri The [place] [id number] Patient Name: ALEXANDRA HIGGINS MRN: [id number] date: 2000 Sex: F Assigned Patient Location: US Current Patient Location: Accession/Order Number: [id number] Exam Date: 07/26/2023 12:55 Report Date: 07/26/2023 [...] 14:44 Dictated By: Pippa Ortega M.D. Signed By:07/26/231445 DD/ 43 TD/TT: Retail Pharmacist: us Teresita Hodge DO IMG XR PROCEDURES Final Result documented in this encounter Visit Diagnoses Not on filedocumented in this encounter
[2025-05-06 10:14] VITALS: BP 122/81; PULSE 71; TEMP 37.1; O2SAT 100; BMI 28.2
--- OUTSIDE RECORDS SUMMARY | 2025-05-06 10:14 | XMS_ITS | Encounter Summary ---
Author Organization [facility] Address [address] [place] [address] Care Team Providers Care Special Forces Specialist Name Role Phone Unavailable Primary Care Provider Unavailabl e Encounter Details Date Type Department Care Team (Late Contact Info) Description 04/25/2023 Abstract [facility] [address] [place] [address] Andrzej Hodge DO [address] [place] [address] [address], [place] [address] Social History Tobacco Use Types Packs/Day Years [...] Encounters Date Type Department Care Team (Late Contact Info) Description 05/21/2025 1:30 PM EDT Procedure Visit [facility] [address] [place] [address] [place] [address] Ayesha, Andrzej, [address] [place] [address] 07/31/2025 2:00 PM EST Office Visit [facility] [address] [facility] [place] [place] [phone] Andrzej Hodge, [address] [place] [address] documented as of this encounter Visit Diagnoses Not on filedocumented in this encounter
--- OUTSIDE RECORDS SUMMARY | 2025-05-06 10:14 | XMS_ITS | Encounter Summary ---
Author Organization [facility] Address [address] [place] [address] Care Team Providers Care Chemotherapist Name Role Phone Unavailable Primary Care Provider Unavailabl e Encounter Details Date Type Department Care Team (Late st Contact Info) Description 06/07/2024 Abstract [facility] [address] [place] [phone] Andrzej Hodge DO [address], [place] [address] Social History Tobacco Use Types Packs/Day Years [...] Description 05/21/2025 1:30 PM EDT Procedure Visit [facility] [address] [place] [address] Andrzej Hodge DO [address] [place] [address] 07/31/2025 2:00 PM EST Office Visit [facility] [address] [facility] [address] Andrzej Hodge DO [address] [facility] [place] [address] documented as of this encounter Visit Diagnoses Not on filedocumented in this encounter
--- OUTSIDE RECORDS SUMMARY | 2025-05-06 10:14 | XMS_ITS | Encounter Summary ---
Author Organization [facility] Address [address] [place] [address] Care Team Providers Care Stamping Bench Die Maker Name Role Phone Unavailable Primary Care Provider Unavailabl e Encounter Details Date Type Department Care Team (Late st Contact Info) Description 07/06/2024 Clinisync Result Encounter NOMS External Department Unsolicited Teresita Hodge DO [address], [facility] Social History Tobacco Use Types Packs/Day Years [...] EDT Procedure Visit [facility] [address] [place] [address] Teresita Hodge DO [address] [place] [address] [place] [address] 07/31/2025 2:00 PM EST Office Visit [facility] [address] [place] [address] Teresita Hodge, DO [address] [facility] [place] [address] documented as of this encounter Procedures Procedure Name Priority Date/Time Associated Diagnosis Comments US OB CERVICAL LENGTH 07/06/2024 7:56 AM EST documented in this encounter Results * US OB CERVICAL LENGTH (07/06/2024 7:56 AM EST) Anatomical Region Laterality Modality Other 07/06/2024 7:56 AM EST Narrative 07/06/2024 7:58 AM EST The [address] [address] Ultrasound Report Signed Patient: ALEXANDRA HIGGINS MR#: [id number] : 2000 Acct:[id number] Age/Sex: 23 / F ADM Date: 07/06/24 Loc: US Attending Dr: Teresita Hodge D.O. Ordering Physician: Teresita Hodge D.O. Date of Service: 07/06/24 Procedure(s): US OB cervical length Accession Number(s): [id number] cc: Teresita Hodge D.O.; Physician,Non-Staff M.DConcetta The [address] [address] Patient Name: ALEXANDRA HIGGINS MRN: [id number] date: 2000 Sex: F Assigned Patient Location: US Current Patient Location: US Accession/Order Number: [id number] Exam Date: 07/06/2024 07:30 Report Date: 07/06/2024 [...] Ortega M.D. Signed By: 07/06/24 0758 DD/ 5 TD/TT: Telephone Information Supervisor: Procedure Note Radiology, Radiologist, - 07/06/2024 [place] [address] Ultrasound Report Signed Patient: ALEXANDRA HIGGINS DMR#: [id number] : 2000Acct:[id number] Age/Sex: 23 / FADM Date: 07/06/24 Loc: US Attending Dr: Teresita Hodge D.O. Ordering Physician: Teresita Hodge D.O. Date of Service: 07/06/24 Procedure(s): US OB cervical length Accession Number(s): [id number] cc: Teresita Hodge D.O.; Physician,Non-Staff Viri The [place] [address] Patient Name: ALEXANDRA HIGGINS MRN: [id number] date: 2000 Sex: F Assigned Patient Location: US Current Patient Location: US Accession/Order Number: [id number] Exam Date: 07/06/2024 07:30 Report Date: 07/06/2024 [...] Pippa Ortega M.D. Signed By:07/06/24 0758 DD/ 5 TD/TT: Telephone Information Supervisor: us Teresita Hodge DO [facility] Final Result documented in this encounter Visit Diagnoses Not on filedocumented in this encounter
--- OUTSIDE RECORDS SUMMARY | 2025-05-06 10:14 | XMS_ITS | Encounter Summary ---
Author Organization [facility] Address [address] [place] [address] Care Team Providers Care Palletizer Name Role Phone Unavailable Primary Care Provider Unavailabl e Encounter Details Date Type Department Care Team (Late st Contact Info) Description 07/12/2024 Abstract [facility] [address] [place] [phone] Andrzej Hodge DO [address], [place] [address] Social History Tobacco Use Types Packs/Day Years [...] EDT Procedure Visit [facility] [address] [place] [address] Andrzej Hodge DO [address] [place] [address] 07/31/2025 2:00 PM EST Office Visit [facility] [address] [facility] [place] [address] Andrzej Hodge DO [address] [facility] [place] [address] documented as of this encounter Visit Diagnoses Not on filedocumented in this encounter
--- OUTSIDE RECORDS SUMMARY | 2025-05-06 10:14 | XMS_ITS | Encounter Summary ---
Author Organization [facility] Address [address] [place] [address] Care Team Providers Care Radiology Transcriptionist Name Role Phone Unavailable Primary Care Provider Unavailabl e Encounter Details Date Type Department Care Team (Late st Contact Info) Description 06/27/2023 Clinisync Result Encounter NOMS External Department Unsolicited Teresita Hodge, [address], [place] [address] Social History Tobacco Use Types Packs/Day Years [...] Visit [facility] [address] [place] [phone] Teresita Hodge DO [address], [place] [address] 07/31/2025 2:00 PM EST Office Visit [facility] [address] [facility] [place] [address] Teresita Hodge DO [address] [facility] [place] [address] documented as of this encounter Procedures Procedure Name Priority Date/Time Associated Diagnosis Comments US OB ANATOMY 06/27/2023 3:13 PM EST documented in this encounter Results * US OB ANATOMY (06/27/2023 3:13 PM EST) Anatomical Region Laterality Modality Other 06/27/2023 3:13 PM EST Narrative 06/27/2023 3:13 PM EST The [address] [address] Ultrasound Report Signed Patient: ALEXANDRA HIGGINS MR#: [id number] : 2000 Acct:[id number] Age/Sex: 22 / F ADM Date: 06/27/23 Loc: US Attending Dr: Teresita Hodge D.O. Ordering Physician: Teresita Hodge D.O. Date of Service: 06/27/23 Procedure(s): US OB anatomy Accession Number(s): [id number] cc: Teresita Hodge D.O.; Physician,Non-Staff M.DConcetta The [address] [address] Patient Name: ALEXANDRA HIGGINS MRN: [id number] date: 2000 Sex: F Assigned Patient Location: US Current Patient Location: US Accession/Order Number: [id number] Exam Date: 06/27/2023 13:07 Report Date: 06/27/2023 [...] Signed By: 06/27/23 1516 DD/ 12 TD/TT: Coordinator Hotels: Procedure Note Radiology, Radiologist, - 06/27/[address] [address] Ultrasound Report Signed Patient: ALEXANDRA HIGGINS [facility]#: [id number] : 2000Acct:[id number] Age/Sex: 22 / FADM Date: 06/27/23 Loc: US Attending Dr: Teresita Hodge D.O. Ordering Physician: Teresita Hodge D.O. Date of Service: 06/27/23 Procedure(s): US OB anatomy Accession Number(s): [id number] cc: Teresita Hodge D.O.; Physician,Non-Staff Viri [place] [id number] Patient Name: ALEXANDRA HIGGINS MRN: [id number] date: 2000 Sex: F Assigned Patient Location: US Current Patient Location: US Accession/Order Number: [id number] Exam Date: 06/27/2023 13:07 Report Date: 06/27/2023 [...] Arias Jade M.D. Signed By:06/27/23 1516 DD/ 1513 TD/TT: Coordinator Hotels: Teresita Hodge DO [facility] Final Result documented in this encounter Visit Diagnoses Not on filedocumented in this encounter
--- OUTSIDE RECORDS SUMMARY | 2025-05-06 10:14 | XMS_ITS | Encounter Summary ---
Author Organization [facility] Address [address] [place] [address] Care Team Providers Care Public Works Manager Name Role Phone Unavailable Primary Care Provider Unavailabl e Encounter Details Date Type Department Care Team (Late st Contact Info) Description 07/06/2024 Abstract [facility] [email or web address] [address] Andrzej Hodge DO [address], [place] [address] Social History Tobacco Use Types Packs/Day Years [...] EDT Procedure Visit [facility] [address] [email or web address] [address] Andrzej Hodge DO [address] [place] [address] 07/31/2025 2:00 PM EST Office Visit [facility] [address] [facility] [place] [address] Andrzej Hodge DO [address] [facility] [place] [address] documented as of this encounter Visit Diagnoses Not on filedocumented in this encounter
--- OUTSIDE RECORDS SUMMARY | 2025-05-06 10:14 | XMS_ITS | Encounter Summary ---
Author Organization [facility] Address [address] [place] [address] Care Team Providers Care Gas Truck Driver Name Role Phone Unavailable Primary Care Provider Unavailabl e Encounter Details Date Type Department Care Team (Late st Contact Info) Description 05/22/2024 Abstract [facility] [address] [employer] [place] [phone] Andrzej Hodge DO [address], [place] [address] Social History Tobacco Use Types Packs/Day Years [...] EDT Procedure Visit [facility] [address] [employer] [place] [phone] Andrzej Hodge DO [address] [place] [address] 07/31/2025 2:00 PM EST Office Visit [facility] [address] [facility] [place] [address] Andrzej Hodge DO [address] [facility] [place] [address] documented as of this encounter Visit Diagnoses Not on filedocumented in this encounter
--- OUTSIDE RECORDS SUMMARY | 2025-05-06 10:14 | XMS_ITS | Encounter Summary ---
Author Organization [facility] Address [address] [place] [address] Care Team Providers Care Water Commissioner Name Role Phone Unavailable Primary Care Provider Unavailabl e Encounter Details Date Type Department Care Team (Late st Contact Info) Description 05/22/2024 Abstract [facility] [address] [place] [address] Andrzej Hodge DO [address], [place] [address] Social History Tobacco Use Types Packs/Day Years [...] EDT Procedure Visit [facility] [address] [place] [phone] Andrzej Hodge DO [address] [place] [address] 07/31/2025 2:00 PM EST Office Visit [facility] [address] [facility] [address] Andrzej Hodge DO [address] [facility] [place] [address] documented as of this encounter Visit Diagnoses Not on filedocumented in this encounter
--- OUTSIDE RECORDS SUMMARY | 2025-05-06 10:14 | XMS_ITS | Encounter Summary ---
Author Organization [facility] Address [address] [place] [address] Care Team Providers Care Card Puncher Name Role Phone Unavailable Primary Care Provider Unavailabl e Encounter Details Date Type Department Care Team (Late st Contact Info) Description 10/24/2024 Abstract [facility] [address] [place] [address] Andrzej Hodge DO [address], [place] [address] Social History Tobacco Use Types Packs/Day Years [...] EDT Procedure Visit [facility] [address] [place] [address] Andrzej Hodge DO [address] [place] [address] 07/31/2025 2:00 PM EST Office Visit [facility] G[facility] [address] [facility] [place] [address] Andrzej Hodge DO [address] [facility] [place] [address] documented as of this encounter Visit Diagnoses Not on filedocumented in this encounter
--- OUTSIDE RECORDS SUMMARY | 2025-05-06 10:14 | XMS_ITS | Encounter Summary ---
Author Organization [facility] Address [address] [place] [address] Care Team Providers Care Adhesive Bandage Making Operator Name Role Phone Unavailable Primary Care Provider Unavailabl e Encounter Details Date Type Department Care Team (Late st Contact Info) Description 05/22/2024 Abstract [facility] [address] [employer] [address] [place] [phone] Andrzej Hodge DO [address], [place] [address] Social History Tobacco Use Types Packs/Day Years [...] EDT Procedure Visit [facility] [address] [employer] [address] [place] [address] Andrzej Hodge DO [address] [place] [address] 07/31/2025 2:00 PM EST Office Visit [facility] [address] [facility] [place] [address] Andrzej Hodge DO [address] [facility] [place] [address] documented as of this encounter Visit Diagnoses Not on filedocumented in this encounter
--- OUTSIDE RECORDS SUMMARY | 2025-05-06 10:14 | XMS_ITS | Encounter Summary ---
Author Organization [facility] Address [address] [place] [address] Care Team Providers Care Vice President Pharmacy Name Role Phone Unavailable Primary Care Provider Unavailabl e Encounter Details Date Type Department Care Team (Late Contact Info) Description 12/21/2024 Abstract [facility] [address] [place] [address] Mitzi Yusuf LPN Social History Tobacco Use [...] Visit [facility] [address] [place] [address] Andrzej Hodge DO [address] [place], [place] [phone] 07/31/2025 2:00 PM EST Office Visit [facility] [address] [place] [address] Ayesha, Andrezj, [address] [place] [address] documented as of this encounter Visit Diagnoses Not on filedocumented in this encounter
--- OUTSIDE RECORDS SUMMARY | 2025-05-06 10:14 | XMS_ITS | Encounter Summary ---
Author Organization [facility] Address [address] [place] [address] Care Team Providers Care Security Operations Center Analyst Name Role Phone Unavailable Primary Care Provider Unavailabl e Encounter Details Date Type Department Care Team (Late st Contact Info) Description 10/19/2023 Abstract [facility] GOME[facility] [address] [place] [phone] Andrzej Hodge DO [address], [place] [address] Social History Tobacco Use Types Packs/Day Years [...] EDT Procedure Visit [facility] G[facility] [address] [place] [address] Andrzej Hodge DO [address] [place] [address] 07/31/2025 2:00 PM EST Office Visit [facility]EL GOME[facility] [address] [facility] [place] [address] Andrzej Hodge DO [address] [facility] [place] [address] documented as of this encounter Visit Diagnoses Not on filedocumented in this encounter
--- OUTSIDE RECORDS SUMMARY | 2025-05-06 10:14 | XMS_ITS | Encounter Summary ---
Author Organization [facility] Address [address] [place] [address] Care Team Providers Care Scrap Metal Processing Worker Name Role Phone Unavailable Primary Care Provider Unavailabl e Encounter Details Date Type Department Care Team (Late st Contact Info) Description 05/22/2024 Abstract [facility] [address] [facility] [address] Andrzej Hodge DO [address], [place] [address] Social History Tobacco Use Types Packs/Day Years [...] EDT Procedure Visit [facility] MAN[facility]EL GOME[facility] [address] [facility] [place] [address] Andrzej Hodge DO [address] [place] [address] 07/31/2025 2:00 PM EST Office Visit [facility] MAN[facility]EL GOMEZ [address] [place] [address] Andrzej Hodge DO [address] [facility] [place] [address] documented as of this encounter Visit Diagnoses Not on filedocumented in this encounter
--- OUTSIDE RECORDS SUMMARY | 2025-05-06 10:14 | XMS_ITS | Encounter Summary ---
Author Organization [facility] Address [address] [place] [address] Care Team Providers Care Shirt Closer Name Role Phone Unavailable Primary Care Provider Unavailabl e Encounter Details Date Type Department Care Team (Late st Contact Info) Description 08/02/2024 Orders Only LUIS MANUEL GOMEZ [address] [place] [phone] Aaliyah Lunsford LPN [address] [address] Social History Tobacco Use Types Packs/Day Years [...] EDT Procedure Visit LUIS MANUEL GOMEZ [address] [place] [phone] Andrzej Hodge DO [address] [place] [address] 07/31/2025 2:00 PM EST Office Visit NOMGalindo GOMEZ [address] [place] [phone] Andrzej Hodge DO [address] [place] [address] documented as of this encounter Procedures Procedure [...]
--- OUTSIDE RECORDS SUMMARY | 2025-05-06 10:14 | XMS_ITS | Encounter Summary ---
Author Organization [facility] Address [address] [place] [address] Care Team Providers Care Nuclear Plant Construction Worker Name Role Phone Unavailable Primary Care Provider Unavailabl e Encounter Details Date Type Department Care Team (Late Contact Info) Description 09/14/2024 External Result Encounter LUIS MANUEL GOMEZ [address] [facility] [phone] Andrzej Hodge DO [address], [place] [address] Social History Tobacco Use Types Packs/Day Years [...] Visit LUIS MANUEL GOMEZ [address] [place] [address] Andrzej Hodge DO [address], [facility] 07/31/2025 2:00 PM EST Office Visit LUIS MANUEL GOMEZ [address] [facility] [place] [address] Andrzej Hodge, DO [address] [facility] [place] [address] documented as of this encounter Procedures Procedure Name Priority Date/Time Associated Diagnosis Comments RECURRENT VAGINITIS (HTRX) Routine 04/18/2025 3:58 PM EDT US OB 14+ WEEKS ANATOMY SCAN 09/14/2024 1:09 PM EST documented in this encounter Results * (ABNORMAL) RECURRENT VAGINITIS (HTRX) (04/18/2025 3:58 PM EDT) Pathologist [facility] ATOPOBIUM VAGINAE 0 19.961 - 24.689 ppm 04/19/2025 7:40 AM EDT [facility] ATOPOBIUM VAGINAE Not Detected 19.961 - 24.689 ppm 04/19/2025 7:40 AM EDT [facility] BVAB 2,3 (BACTERIAL VAGINOSIS ASSOCIATED BACTERIA 2, 3); MOBILUNCUS SPP 26.285(A) 19.961 - 24.689 ppm 04/19/2025 7:40 AM EDT [facility] BVAB 2,3 (BACTERIAL VAGINOSIS ASSOCIATED BACTERIA 2, 3); MOBILUNCUS SPP Detected(A) 19.961 - 24.689 ppm 04/19/2025 7:40 AM EDT [facility] SIMA ALBICANS, PARAPSILOSIS, TROPICALIS 0 23.000 - 30.347 ppm 04/19/2025 7:40 AM EDT [facility] SIMA ALBICANS, PARAPSILOSIS, TROPICALIS Not Detected 23.000 - 30.347 ppm 04/19/2025 7:40 AM EDT [facility] SIMA GLABRATA 0 23.000 - 31.618 ppm 04/19/2025 7:40 AM EDT [facility] SIMA GLABRATA Not Detected 23.000 - 31.618 ppm 04/19/2025 7:40 AM EDT [facility] SIMA KRUSEI 0 23.000 - 30.873 ppm 04/19/2025 7:40 AM EDT [facility] SIMA KRUSEI Not Detected 23.000 - 30.873 ppm 04/19/2025 7:40 AM EDT [facility] CHLAMYDIA TRACHOMATIS 0 23.000 - 31.586 ppm 04/19/2025 7:40 AM EDT [facility] CHLAMYDIA TRACHOMATIS Not Detected 23.000 - 31.586 ppm 04/19/2025 7:40 AM EDT [facility] GARDNERELLA VAGINALIS 0 19.961 - 24.689 ppm 04/19/2025 7:40 AM EDT [facility] GARDNERELLA VAGINALIS Not Detected 19.961 - 24.689 ppm 04/19/2025 7:40 AM EDT [facility] MEGASPHAERA (TYPES 1, 2) 0 19.961 - 24.689 ppm 04/19/2025 7:40 AM EDT [facility] MEGASPHAERA (TYPES 1, 2) Not Detected 19.961 - 24.689 ppm 04/19/2025 7:40 AM EDT [facility] NEISSERIA GONORRHOEAE 0 23.000 - 32.587 ppm 04/19/2025 7:40 AM EDT [facility] NEISSERIA GONORRHOEAE Not Detected 23.000 - 32.587 ppm 04/19/2025 7:40 AM EDT [facility] TRICHOMONAS VAGINALIS 0 23.000 - 31.995 ppm 04/19/2025 7:40 AM EDT [facility] TRICHOMONAS VAGINALIS Not Detected 23.000 - 31.995 ppm 04/19/2025 7:40 AM EDT [facility] MYCOPLASMA GENITALIUM 0 19.961 - 24.689 ppm 04/19/2025 7:40 AM EDT [facility] MYCOPLASMA GENITALIUM Not Detected 19.961 - 24.689 ppm 04/19/2025 7:40 AM EDT [facility] Tissue 04/18/2025 3:58 PM EDT 04/19/2025 3:32 AM EDT us Cinthia Wang NP LAB BLOOD ORDERABLES Final Re sult [facility] [address] [address] * US OB 14+ weeks anatomy scan (09/14/2024 1:09 PM EST) Anatomical Region Laterality Modality Body Ultrasound 09/14/2024 1:09 PM EST Narrative 09/14/2024 1:09 PM EST THIS EXAM WAS PERFORMED AT [facility] Coding ====== Procedures 88582: Ultrasound, uterus, real time with image documentation, and maternal evaluation plus detailed anatomic examination, transabdominal approach;single or first gestation 26570: Transvaginal Ultrasound (OB) Indication ======== Screening for [...] 1 lb 5 oz EFW by Hadlock ([id number]) Head / Face / Neck Biometry: Cephalic index 0.77 34% Nicolaides Dyeing Machine Tender 5.0 mm CM 3.7 mm 4% Nicolaides [...] adequately visualized: Heart / Thorax 4-chamber view. 5-fntitq-sljbcwa view. Interventricular septum. Great vessels. The following [...] - 09/14/2024 THIS EXAM WAS PERFORMED AT [facility] Coding ====== Procedures [id number]: Ultrasound, uterus, real time with imagedocumentation, and maternal evaluation plus detailed fetalanatomic examination, transabdominal approach;single or firstgestation 26055: Transvaginal Ultrasound (OB) Indication ======== Screening for [...] ageEDD LMP 04/04/2024 23 w + 2 d6 Previous U/S 05/22/2024 GA, GA 6 w [...] 1 lb 5 oz EFW by Hadlock ([id number]-FL) Head / Face / Neck Biometry: Cephalic index 0.77 34% Nicolaides Dyeing Machine Tender 5.0 mm CM 3.7 mm 4% Nicolaides [...] adequately visualized: Heart / Thorax 4-chamber view. 5-thwytl-ciehtht view. Interventricularseptum. Great vessels. The following structures [...]
--- OUTSIDE RECORDS SUMMARY | 2025-05-06 10:14 | XMS_ITS | Clinical Summary ---
Author Organization [facility] Healthcare Address [address] [place] [address] Care Team Providers Care Product Management Intern Name Role Phone Unavailable Primary Care Provider Unavailabl e Allergies Active Allergy Reactions Criticality Noted Date Comments Pollen Extract 09/14/2024 Other Reaction(s): Eye Swelling Medications phenazopyridine (Pyridium) 100 MG tabletIndicatio ns:Pelvic pain in female Take 1 tablet (100 mg) by mouth 3 (three) times a day as needed for bladder spasms for up to 3 days 10 tablet 04/18/2025 04/21/20 25 metroNIDAZOLE (Flagyl) 500 MG tabletIndicatio ns:BV (bacterial vaginosis) Take 1 tablet (500 mg) by mouth in the morning and 1 tablet (500 mg) before bedtime. Do all this for 7 days. Do not drink alcohol while taking this medication. 14 tablet 04/19/2025 04/26/20 25 Hospital, Clinic, or Other Facility Administered Medication Ordered Dose Route Frequency Start Date End Date Status etonogestrel-eluting 68 mg contraceptive implant 1 eachIndications:Insertion of Nexplanon 1 each [place] Continuous 01/14/2025 01/14/2028 Active Active Problems Problem Noted Date Diagnosed Date Amenorrhea 10/26/2023 Missed period 10/26/2023 Gynecological disease 10/26/2023 Low grade squamous intraepit helial lesion (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 10/26/2023 Obesity 10/26/2023 Encounters Date Type Department Care Team Description 04/19/2025 Telephone NOMS Jose GOMEZ [address] [place] [address] Cinthia Wang NP 04/18/2025 3:40 PM EDT Office Visit NOMS Jose GOMEZ [address] [place] [address] Cinthia Wang NP Pelvic pain in female 04/18/2025 Bamboo flowsheet [facility]OMS Jose OBYA [address] [place] [address] Cinthia Wang NP 02/05/2025 1:30 PM EDT Visit NOMS Jose GOMEZ [address] [place] [address] Amy Abebe PA Encounter for surveillance of Nexplanon subdermal contraceptive; 6 weeks follow-up ([facility]); Spontaneous vaginal delivery ([facility]) 02/05/2025 Travel from Last 3 Months Family History [...] Sign Reading Time Taken Comments Blood Pressure 118/70 02/05/2025 1:48 PM EDT Pulse - - Temperature - - Respiratory Rate - - Oxygen Saturation - - Inhaled Oxygen Concentration - - Weight 77.6 kg (171 lb) 02/05/2025 1:48 PM EDT Height 161.3 cm (5' 3.5 ) 11/10/2022 12:00 PM ED T Body Mass Index 29.82 11/10/2022 12:00 PM EDT Plan of Treatment Upcoming Encounters Date Type Department Care Team (Late st Contact Info) Description 05/21/2025 1:30 PM EDT Procedure Visit LUIS MANUEL GOMEZ [address] [facility] [place] [phone] Andrzej Hodge, DO [address] [facility] [place] [address] 07/31/2025 2:00 PM EST Office Visit LUIS MANUEL GOMEZ [address] [facility] [place] [phone] Andrzej Hodge, DO [address] [facility] [address] [place], [place] [phone] Procedures Procedure Name Priority Date/Time Associated Diagnosis Comments RECURRENT VAGINITIS (HTRX) Routine 04/18/2025 3:58 PM EDT POCT URINALYSIS DIPSTICK Routine 04/18/2025 3:42 PM EDT Pelvic pain in female POCT , URINE Routine 02/05/2025 1:55 PM EDT Encounter for surveillance of Nexplanon subdermal contraceptive 6 weeks follow-up ([facility]) POCT URINALYSIS DIPSTICK Routine 02/05/2025 1:55 PM EDT Encounter for surveillance of Nexplanon subdermal contraceptive 6 weeks follow-up ([facility]) from Last 3 Months Results * (ABNORMAL) RECURRENT VAGINITIS (HTRX) (04/18/2025 3:58 PM EDT) Pathologist [facility] ATOPOBIUM VAGINAE 0 19.961 - 24.689 ppm 04/19/2025 7:40 AM EDT [facility] ATOPOBIUM VAGINAE Not Detected 19.961 - 24.689 ppm 04/19/2025 7:40 AM EDT [facility] BVAB 2,3 (BACTERIAL VAGINOSIS ASSOCIATED BACTERIA 2, 3); MOBILUNCUS SPP 26.285(A) 19.961 - 24.689 ppm 04/19/2025 7:40 AM EDT [facility] BVAB 2,3 (BACTERIAL VAGINOSIS ASSOCIATED BACTERIA 2, 3); MOBILUNCUS SPP Detected(A) 19.961 - 24.689 ppm 04/19/2025 7:40 AM EDT [facility] SIMA ALBICANS, PARAPSILOSIS, TROPICALIS 0 23.000 - 30.347 ppm 04/19/2025 7:40 AM EDT [facility] SIMA ALBICANS, PARAPSILOSIS, TROPICALIS Not Detected 23.000 - 30.347 ppm 04/19/2025 7:40 AM EDT [facility] SIMA GLABRATA 0 23.000 - 31.618 ppm 04/19/2025 7:40 AM EDT [facility] SIMA GLABRATA Not Detected 23.000 - 31.618 ppm 04/19/2025 7:40 AM EDT [facility] SIMA KRUSEI 0 23.000 - 30.873 ppm 04/19/2025 7:40 AM EDT [facility] SIMA KRUSEI Not Detected 23.000 - 30.873 ppm 04/19/2025 7:40 AM EDT [facility] CHLAMYDIA TRACHOMATIS 0 23.000 - 31.586 ppm 04/19/2025 7:40 AM EDT [facility] CHLAMYDIA TRACHOMATIS Not Detected 23.000 - 31.586 ppm 04/19/2025 7:40 AM EDT [facility] GARDNERELLA VAGINALIS 0 19.961 - 24.689 ppm 04/19/2025 7:40 AM EDT [facility] GARDNERELLA VAGINALIS Not Detected 19.961 - 24.689 ppm 04/19/2025 7:40 AM EDT [facility] MEGASPHAERA (TYPES 1, 2) 0 19.961 - 24.689 ppm 04/19/2025 7:40 AM EDT [facility] MEGASPHAERA (TYPES 1, 2) Not Detected 19.961 - 24.689 ppm 04/19/2025 7:40 AM EDT [facility] NEISSERIA GONORRHOEAE 0 23.000 - 32.587 ppm 04/19/2025 7:40 AM EDT [facility] NEISSERIA GONORRHOEAE Not Detected 23.000 - 32.587 ppm 04/19/2025 7:40 AM EDT [facility] TRICHOMONAS VAGINALIS 0 23.000 - 31.995 ppm 04/19/2025 7:40 AM EDT [facility] TRICHOMONAS VAGINALIS Not Detected 23.000 - 31.995 ppm 04/19/2025 7:40 AM EDT [facility] MYCOPLASMA GENITALIUM 0 19.961 - 24.689 ppm 04/19/2025 7:40 AM EDT [facility] MYCOPLASMA GENITALIUM Not Detected 19.961 - 24.689 ppm 04/19/2025 7:40 AM EDT [facility] Tissue 04/18/2025 3:58 PM EDT 04/19/2025 3:32 AM EDT us Cinthia Wang NP LAB BLOOD ORDERABLES Final Re sult [facility] [address] [place] [address] * POCT urinalysis dipstick manually resulted (04/18/2025 3:42 PM EDT) Only the most recent of2 resultswithin the time period is included. Color, UA Yellow Clarity, UA Clear Glucose, UA Negative Negative - 1999(110) ++++ mg/dL Bilirubin, UA Negative Negative - 4(70) +++ mg/dL Ketones, UA Negative Negative - 160(16) ++++ mg/dL Spec Grav, UA 1.030 1 - 1.03 Blood, UA Negative Negative - 50 William/mcL pH, UA 6.0 5 - 9 Protein, UA Negative Negative - 1999(20) ++++ mg/dL Urobilinogen, UA 0.2 0.2 - 12 mg/dL Leukocytes, UA Negative Negative - 500+++ Roma/mcL Nitrite, UA Negative Negative - Positive Urine 04/18/2025 3:42 PM EDT Cinthia Wang NP POINT OF CARE TEST ENTER/EDIT ORDERABLES Final Result * POCT , urine manually resulted (02/05/2025 1:55 PM EDT) Preg Test, Ur Negative Negative Urine 02/05/2025 1:55 PM EDT Amy VILLATORO POINT OF CARE TEST ENTER/EDIT OR DERABLES Final Result from Last 3 Months Insurance [employer] MEDICA[place]
--- OUTSIDE RECORDS SUMMARY | 2025-05-06 10:14 | XMS_ITS | Encounter Summary ---
Author Organization [facility] Address [address] [place] [address] Care Team Providers Care Building Rigger Name Role Phone Unavailable Primary Care Provider Unavailabl e Encounter Details Date Type Department Care Team (Late st Contact Info) Description 07/04/2023 Clinisync Result Encounter NOMS External Department Unsolicited Teresita Hodge, [address], [place] [address] Social History Tobacco Use Types Packs/Day Years [...] Visit [facility] [address] [place] [phone] Teresita Hodge DO [address], [place] [address] 07/31/2025 2:00 PM EST Office Visit [facility] Jose OBGYN [address] [place] [address] Teresita Hodge DO [address] [facility] [place] [address] documented as of this encounter Procedures Procedure Name Priority Date/Time Associated Diagnosis Comments US OB CERVICAL LENGTH 07/04/2023 6:53 PM EST documented in this encounter Results * US OB CERVICAL LENGTH (07/04/2023 6:53 PM EST) Anatomical Region Laterality Modality Other 07/04/2023 6:53 PM EST Narrative 07/04/2023 6:56 PM EST The [address] [address] Ultrasound Report Signed Patient: ALEXANDRA HIGGINS MR#: [id number] : 2000 Acct:[id number] Age/Sex: 22 / F ADM Date: 07/04/23 Loc: FBCO Attending Dr: Teresita Hodge D.O. Ordering Physician: Teresita Hodge D.O. Date of Service: 07/04/23 Procedure(s): US OB cervical length Accession Number(s): [id number] cc: Teresita Hodge D.O.; Physician,Non-Staff M.D. The [address] [address] Patient Name: ALEXANDRA HIGGINS MRN: [id number] date: 2000 Sex: F Assigned Patient Location: [facility] Current Patient Location: [facility] Accession/Order Number: [id number] Exam Date: 07/04/2023 17:45 Report Date: 07/04/2023 18:53 At the request of: TERESITA HODGE Procedure: US OB cervical length EXAM: US OB cervical length, US OB amniotic fluid vol 07/04/2023 3:50 PM PST, [id number], [id number] HISTORY: r/o srom. TECHNIQUE: Multiple longitudinal and [...] Sullivan Signed By: 07/04/231855 DD/ 52 TD/TT: Tile Conduit Layer: Procedure Note Radiology, Radiologist, MD - 07/04/2023 [place] [address] Ultrasound Report Signed Patient: ALEXANDRA HIGGINS DMR#: [id number] : 2000Acct:[id number] Age/Sex: 22 / FADM Date: 07/04/23 Loc: FBCO Attending Dr: Teresita Hodge D.O. Ordering Physician: Teresita Hodge D.O. Date of Service: 07/04/23 Procedure(s): US OB cervical length Accession Number(s): [id number] cc: Teresita Hodge D.O.; Physician,Non-Staff M.DConcetta The [place] [id number] Patient Name: ALEXANDRA HIGGINS MRN: [id number] date: 2000 Sex: F Assigned Patient Location: [facility] Current Patient Location: [facility] Accession/Order Number: [id number] Exam Date: 07/04/2023 17:45 Report Date: 07/04/2023 18:53 At the request of: TERESITA HODGE Procedure: US OB cervical length EXAM: US OB cervical length, US OB amniotic fluid vol 07/04/2023 3:50 PMPST, [id number], [id number] HISTORY: r/o srom. TECHNIQUE: Multiple longitudinal and [...] Zee Sullivan Signed By:07/04/231855 DD/ 52 TD/TT: Tile Conduit Layer: us Teresita Ayesha DO [facility] Final Result documented in this encounter Visit Diagnoses Not on filedocumented in this encounter
--- OUTSIDE RECORDS SUMMARY | 2025-05-06 10:14 | XMS_ITS | Encounter Summary ---
Author Organization [facility] Address [address] [place] [address] Care Team Providers Care Demand Inspector Name Role Phone Unavailable Primary Care Provider Unavailabl e Encounter Details Date Type Department Care Team (Late st Contact Info) Description 08/15/2024 Abstract LUIS MANUEL GOMEZ [address] [place] [phone] Andrzej Hodge DO [address], [place] [address] Social History Tobacco Use Types Packs/Day Years [...] EDT Procedure Visit LUIS MANUEL GOMEZ [address] [place] [phone] Andrzej Hodge DO [address] [place] [address] 07/31/2025 2:00 PM EST Office Visit LUIS MANUEL GOMEZ [address] [facility] [place] [address] Andrzej Hodge DO [address] [facility] [place] [address] documented as of this encounter Visit Diagnoses Not on filedocumented in this encounter
--- OUTSIDE RECORDS SUMMARY | 2025-05-06 10:14 | XMS_ITS | Encounter Summary ---
Author Organization [facility] Address [address] [place] [address] Care Team Providers Care Pump Assembler Name Role Phone Unavailable Primary Care Provider Unavailabl e Encounter Details Date Type Department Care Team (Late st Contact Info) Description 05/16/2023 Clinisync Result Encounter NOMS External Department Unsolicited Teresita Hodge, DO [address], [facility] Social History Tobacco Use Types Packs/Day Years [...] Visit [facility] [address] [place] [phone] Teresita Hodge DO [address], [facility] 07/31/2025 2:00 PM EST Office Visit [facility] Jose OBGYN [address] [address] Teresita Hodge DO [address] [facility] [place] [address] documented as of this encounter Procedures Procedure Name Priority Date/Time Associated Diagnosis Comments US OB L= 14 WEEKS FETUS 05/16/2023 10:09 PM EDT documented in this encounter Results * US OB L= 14 WEEKS FETUS (05/16/2023 10:09 PM EDT) Anatomical Region Laterality Modality Other 05/16/2023 10:0 9 PM EDT Narrative 05/16/2023 10:09 PM EDT The [address] [address] Ultrasound Report Signed Patient: CAMERON HIGGINS MR#: [id number] : 2000 Acct:[id number] Age/Sex: 22 / F ADM Date: 05/16/23 Loc: US Attending Dr: Teresita Hodge D.O. Ordering Physician: Teresita Hodge D.O. Date of Service: 05/16/23 Procedure(s): US OB <= 14 weeks fetus Accession Number(s): [id number] cc: Teresita Hodge D.O.; Physician,Non-Staff M.DConcetta The [address] [address] Patient Name: CAMERON HIGGINS MRN: [id number] date: 2000 Sex: F Assigned Patient Location: US Current Patient Location: US Accession/Order Number: [id number] Exam Date: 05/16/2023 13:00 Report Date: 05/16/2023 [...] M.D. Signed By: 05/16/232211 DD/ 08 TD/TT: Tipping Machine Operator Automatic: Procedure Note Radiology, Radiologist, MD - 05/17/2023 [place] [address] Ultrasound Report Signed Patient: CAMERON HIGGINS DMR#: [id number] : 2000Acct:[id number] Age/Sex: Date: 05/16/23 Loc: US Attending Dr: Teresita Hodge D.O. Ordering Physician: Teresita Hodge D.O. Date of Service: 05/16/23 Procedure(s): US OB <= 14 weeks fetus Accession Number(s): [id number] cc: Teresita Hodge D.O.; Physician,Non-Staff Viri The [address] [address] Patient Name: CAMERON HIGGINS MRN: [id number] date: 2000 Sex: F Assigned Patient Location: US Current Patient Location: US Accession/Order Number: [id number] Exam Date: 05/16/2023 13:00 Report Date: 05/16/2023 [...] Jade M.D. Signed By:05/16/232211 DD/ 08 TD/TT: Tipping Machine Operator Automatic: Teresita Ayesha DO [facility] Final Result documented in this encounter Visit Diagnoses Not on filedocumented in this encounter
--- OUTSIDE RECORDS SUMMARY | 2025-05-06 10:14 | XMS_ITS | Encounter Summary ---
Author Organization [facility] tem Address [id number] [address] [place] [address] Care Team Providers Care Pigment Making Supervisor Name Role Phone Unavailable Primary Care Provider Unavailabl e Encounter Details Date Type Department Care Team (Late st Contact Info) Description 09/13/2024 Orders Only Maternal- Medicine at [facility] [address] [place] [phone] Ref Prov, [place] [address] Social History Tobacco Use Types Packs/Day Years [...] to get more. Never True 09/14/2024 Comments Yes Sex and Gender Information Value Date Recorded Sex Assigned at Not on file Legal Sex Female 8:14 AM EST Gender Identity Not on file Sexual Orientation Not on file documented as of this encounter Plan of Treatment Not on file documented as of this encounter Procedures Procedure Name Priority Date/Time Associated Diagnosis Comments FREE CELL DNA (NON-[facility] SEND OUT) Routine 06/18/2024 3:13 PM EST documented in this encounter Results * Free Cell DNA (06/18/2024 3:13 PM EST) us Not In System Ref Prov LAB BLOOD ORDERABLES Stella l Result MANUALLY TRANSCRIBED RESULTS documented in this encounter Visit Diagnoses Not on filedocumented in this encounter
--- OUTSIDE RECORDS SUMMARY | 2025-05-06 10:14 | XMS_ITS | Encounter Summary ---
Author Organization [facility] Address [address] [place] [address] Care Team Providers Care Flatbed Company Driver Name Role Phone Unavailable Primary Care Provider Unavailabl e Encounter Details Date Type Department Care Team (Late st Contact Info) Description 12/25/2024 Abstract LUIS MANUEL GOMEZ [address] [place] [phone] Andrzej Hodge DO [address], [place] [address] Social History Tobacco Use Types Packs/Day Years [...] EDT Procedure Visit LUIS MANUEL GOMEZ [address] [place] [phone] Andrzej Hodge DO [address] [place] [address] 07/31/2025 2:00 PM EST Office Visit LUIS MANUEL GOMEZ [address] [facility] [place] [address] Andrzej Hodge DO [address] [facility] [place] [address] documented as of this encounter Visit Diagnoses Not on filedocumented in this encounter
--- OUTSIDE RECORDS SUMMARY | 2025-05-06 10:14 | XMS_ITS | Encounter Summary ---
Author Organization [facility] Address [address] [place] [address] Care Team Providers Care [place] Actor Name Role Phone Unavailable Primary Care Provider Unavailabl e Encounter Details Date Type Department Care Team (Late st Contact Info) Description 09/17/2024 Abstract LUIS MANUEL GOMEZ [address] [place] [phone] Andrzej Hodge DO [address], [place] [address] Social History Tobacco Use Types Packs/Day Years [...] EDT Procedure Visit LUIS MANUEL GOMEZ [address] [place] [phone] Andrzej Hodge DO [address] [place] [address] 07/31/2025 2:00 PM EST Office Visit LUIS MANUEL GOMEZ [address] [facility] [place] [address] Andrzej Hodge DO [address] [facility] [place] [address] documented as of this encounter Visit Diagnoses Not on filedocumented in this encounter
--- OUTSIDE RECORDS SUMMARY | 2025-05-06 10:14 | XMS_ITS | Encounter Summary ---
Author Organization [facility] Address [address] [place] [address] Care Team Providers Care Dry House Wheeler Name Role Phone Unavailable Primary Care Provider Unavailabl e Encounter Details Date Type Department Care Team (Late st Contact Info) Description 06/20/2024 Abstract LUIS MANUEL GOMEZ [address] [place] [phone] Andrzej Hodge DO [address], [place] [address] Social History Tobacco Use Types Packs/Day Years [...] EDT Procedure Visit LUIS MANUEL GOMEZ [address] [place] [phone] Andrzej Hodge DO [address] [place] [address] 07/31/2025 2:00 PM EST Office Visit LUIS MANUEL GOMEZ [address] [facility] [place] [address] Andrzej Hodge DO [address] [facility] [address] documented as of this encounter Visit Diagnoses Not on filedocumented in this encounter
--- OUTSIDE RECORDS SUMMARY | 2025-05-06 10:14 | XMS_ITS | Encounter Summary ---
Author Organization [facility] Address [address] [place] [address] Care Team Providers Care Entry Level Name Role Phone Unavailable Primary Care Provider Unavailabl e Encounter Details Date Type Department Care Team (Late st Contact Info) Description 06/27/2023 Clinisync Result Encounter [facility] External Department Unsolicited Teresita Hodge, [address], [place] [address] Social History Tobacco Use Types Packs/Day Years [...] Visit [facility] [address] [place] [phone] Teresita Hodge DO [address], [place] [address] 07/31/2025 2:00 PM EST Office Visit [facility] [place] [facility] [address] [facility] [place] [address] Teresita Hodge DO [address] [facility] [place] [address] documented as of this encounter Procedures Procedure Name Priority Date/Time Associated Diagnosis Comments US OB TRANSVAGINAL 06/27/2023 3: 13 PM EST documented in this encounter Results * US OB TRANSVAGINAL (06/27/2023 3:13 PM EST) Anatomical Region Laterality Modality Other 06/27/2023 3:13 PM EST Narrative 06/27/2023 3:13 PM EST The [address] [address] Ultrasound Report Signed Patient: ALEXANDRA HIGGINS MR#: [id number] : 2000 Acct:[id number] Age/Sex: 22 / F ADM Date: 06/27/23 Loc: US Attending Dr: Teresita Hodge D.O. Ordering Physician: Teresita Hodge D.O. Date of Service: 06/27/23 Procedure(s): US OB transvaginal Accession Number(s): [id number] cc: Teresita Hodge D.O.; Physician,Non-Staff M.D. The [address] [address] Patient Name: ALEXANDRA HIGGINS MRN: [id number] date: 2000 Sex: F Assigned Patient Location: US Current Patient Location: US Accession/Order Number: [id number] Exam Date: 06/27/2023 13:07 Report Date: 06/27/2023 [...] M.D. Signed By: 06/27/231515 DD/ 12 TD/TT: Manager Wound Care: Procedure Note Radiology, Radiologist, - 06/27/2023 [place] [address] Ultrasound Report Signed Patient: ALEXANDRA HIGGINS [facility]#: [id number] : 2000Acct:[id number] Age/Sex: 22 / FADM Date: 06/27/23 Loc: US Attending Dr: Teresita Hodge D.O. Ordering Physician: Teresita Hodge D.O. Date of Service: 06/27/23 Procedure(s): US OB transvaginal Accession Number(s): [id number] cc: Teresita Hodge D.O.; Physician,Non-Staff MRaad [place] [id number] Patient Name: ALEXANDRA HIGGINS MRN: [facility]:[id number] date: 2000 Sex: F Assigned Patient Location: US Current Patient Location: US Accession/Order Number: [id number] Exam Date: 06/27/2023 13:07 Report Date: 06/27/2023 [...] M.D. Signed By:06/27/23 1516 DD/ 12 TD/TT: Manager Wound Care: us Teresita Hodge DO [facility] Final Result documented in this encounter Visit Diagnoses Not on filedocumented in this encounter
--- OUTSIDE RECORDS SUMMARY | 2025-05-06 10:14 | XMS_ITS | Encounter Summary ---
Author Organization [facility] Address [address] [place] [address] Care Team Providers Care Transit Operator Name Role Phone Unavailable Primary Care Provider Unavailabl e Encounter Details Date Type Department Care Team (Late st Contact Info) Description 06/07/2024 Abstract LUIS MANUEL GOMEZ [address] [place] [phone] Andrzej Hodge DO [address], [place] [address] Social History Tobacco Use Types Packs/Day Years [...] EDT Procedure Visit LUIS MANUEL GOMEZ [address] [place] [phone] Andrzej Hodge DO [address] [place] [address] 07/31/2025 2:00 PM EST Office Visit LUIS MANUEL GOMEZ [address] [facility] [place] [address] Andrzej Hodge DO [address] [facility] [place] [address] documented as of this encounter Visit Diagnoses Not on filedocumented in this encounter
--- OUTSIDE RECORDS SUMMARY | 2025-05-06 10:14 | XMS_ITS | Encounter Summary ---
Author Organization [facility] Address [address] [place] [address] Care Team Providers Care Florist Helper Name Role Phone Unavailable Primary Care Provider Unavailabl e Encounter Details Date Type Department Care Team (Late st Contact Info) Description 06/07/2024 Abstract LUIS MANUEL GOMEZ [address] [place] [phone] Andrzej Hodge DO [address], [place] [address] Social History Tobacco Use Types Packs/Day Years [...] EDT Procedure Visit LUIS MANUEL GOMEZ [address] [place] [phone] Andrzej Hodge DO [address] [place] [address] 07/31/2025 2:00 PM EST Office Visit LUIS MANUEL GOMEZ [address] [facility] [place] [address] Andrzej Hodge DO [address] [facility] [place] [address] documented as of this encounter Visit Diagnoses Not on filedocumented in this encounter
--- OUTSIDE RECORDS SUMMARY | 2025-05-06 10:14 | XMS_ITS | Encounter Summary ---
Author Organization [facility] tem Address [id number] [address] [place] [address] Care Team Providers Care Dyeing Machine Feeder Name Role Phone Unavailable Primary Care Provider Unavailabl e Encounter Details Date Type Department Care Team (Late st Contact Info) Description 09/14/2024 Orders Only Maternal- Medicine at [facility] [address] [place] [phone] Ref Prov, [place] [address] Social History Tobacco Use Types Packs/Day Years [...]
--- OUTSIDE RECORDS SUMMARY | 2025-05-06 10:14 | XMS_ITS | Encounter Summary ---
Author Organization [facility] Address [address] [place] [address] Care Team Providers Care Varnish Thinner Name Role Phone Unavailable Primary Care Provider Unavailabl e Encounter Details Date Type Department Care Team (Late st Contact Info) Description 06/29/2024 Abstract LUIS MANUEL GOMEZ [address] [place] [phone] Andrzej Hodge DO [address], [place] [address] Social History Tobacco Use Types Packs/Day Years [...] EDT Procedure Visit LUIS MANUEL GOMEZ [address] [place] [phone] Andrzej Hodge DO [address] [place] [address] 07/31/2025 2:00 PM EST Office Visit LUIS MANUEL GOMEZ [address] [facility] [place] [address] Andrzej Hodge DO [address] [facility] [place] [address] documented as of this encounter Visit Diagnoses Not on filedocumented in this encounter
--- OUTSIDE RECORDS SUMMARY | 2025-05-06 10:14 | XMS_ITS | Encounter Summary ---
Author Organization [facility] Address [address] [place] [address] Care Team Providers Care Community Artist Name Role Phone Unavailable Primary Care Provider Unavailabl e Encounter Details Date Type Department Care Team (Late st Contact Info) Description 09/30/2023 Clinisync Result Encounter [facility] External Department Unsolicited Teresita Hodge DO [address], [facility] Social History Tobacco Use Types Packs/Day [...] MANUEL GOMEZ [address] [place] [address] Teresita Hodge DO [address] [place] [address] [place] [address] 07/31/2025 2:00 PM EST Office Visit LUIS MANUEL GOMEZ [address] [place] [address] Teresita Hodge, DO [address] [facility] [place] [address] documented as of this encounter Procedures Procedure Name Priority Date/Time Associated Diagnosis Comments US OB GROWTH 09/30/2023 9:42 AM EST documented in this encounter Results * US OB GROWTH (09/30/2023 9:42 AM EST) Anatomical Region Laterality Modality Other 09/30/2023 9:42 AM EST Narrative 09/30/2023 9:45 AM EST [address] [address] Ultrasound Report Signed Patient: ALEXANDRA HIGGINS MR#: [id number] : 2000 Acct:[id number] Age/Sex: 23 / F ADM Date: 09/30/23 Loc: [facility]OMS Attending Dr: Teresita Hodge D.O. Ordering Physician: Teresita Hodge D.O. Date of Service: 09/30/23 Procedure(s): US OB growth Accession Number(s): [id number] cc: Teresita Hodge D.O.; Physician,Non-Staff M.Beatrice The [address] [address] Patient Name: ALEXANDRA HIGGINS MRN: [id number] date: 2000 Sex: F Assigned Patient Location: [facility] Current Patient Location: [facility] Accession/Order Number: [id number] Exam Date: 09/30/2023 09:00 Report Date: 09/30/2023 [...] Dictated By: Arias Jade M.D. Signed By: 09/30/23944 DD/ 1 TD/TT: Wheel Molder: Procedure Note Radiology, Radiologist, MD - 09/30/2023 [place] [address] Ultrasound Report Signed Patient: ALEXANDRA HIGGINS DMR#: [id number] : 2000Acct:[id number] Age/Sex: 23 / FADM Date: 09/30/23 Loc: [facility] Attending Dr: Teresita Hodge D.O. Ordering Physician: Teresita Hodge D.O. Date of Service: 09/30/23 Procedure(s): US OB growth Accession Number(s): [id number] cc: Teresita Hodge D.O.; Physician,Non-Staff Viri The [place] [id number] Patient Name: ALEXANDRA HIGGINS MRN: [id number] date: 2000 Sex: F Assigned Patient Location: [facility] Current Patient Location: [facility] Accession/Order Number: [id number] Exam Date: 09/30/2023 09:00 Report Date: 09/30/2023 09:42 At the request of: TERESITA HODGE Procedure: US OB growth EXAMINATION: US OB growth HISTORY: LGA, VAGINAL DISCHARGE COMPARISON: Ultrasound OB follow-up 07/26/2023, ultrasound OB vltenlp05/4/2023 FINDINGS: Heart Rate: 156.0 bpm Number: 1.0 [...] M.D. Signed By:09/30/23 0945 DD/ 0942 TD/TT: Wheel Molder: us Teresita Hodge DO [facility] Final Result documented in this encounter Visit Diagnoses Not on filedocumented in this encounter
--- OUTSIDE RECORDS SUMMARY | 2025-05-06 10:14 | XMS_ITS | Encounter Summary ---
Author Organization [facility] Address [address] [place] [address] Care Team Providers Care Engine Boss Name Role Phone Unavailable Primary Care Provider Unavailabl e Encounter Details Date Type Department Care Team (Late st Contact Info) Description 06/07/2024 Abstract LUIS MANUEL GOMEZ [address] [place] [phone] Andrzej Hodge DO [address], [place] [address] Social History Tobacco Use Types Packs/Day Years [...] EDT Procedure Visit LUIS MANUEL GOMEZ [address] [place] [address] Andrzej Hodge DO [address] [place] [address] 07/31/2025 2:00 PM EST Office Visit LUIS MANUEL GOMEZ [address] [facility] [address] Andrzej Hodge DO [address] [facility] [place] [address] documented as of this encounter Visit Diagnoses Not on filedocumented in this encounter
--- OUTSIDE RECORDS SUMMARY | 2025-05-06 10:14 | XMS_ITS | Encounter Summary ---
Author Organization [facility] Address [address] [place] [address] Care Team Providers Care Textile Engraver Name Role Phone Unavailable Primary Care Provider Unavailabl e Encounter Details Date Type Department Care Team (Late st Contact Info) Description 06/22/2024 Clinisync Result Encounter [facility] External Department Unsolicited Teresita Hodge DO [address], [facility] Social History Tobacco Use Types Packs/Day [...] Visit LUIS MANUEL GOMEZ [address] [place] [address] Teresita Hodge DO [address] [place] [address] [place] [address] 07/31/2025 2:00 PM EST Office Visit LUIS MANUEL GOMEZ [address] [place] [address] Teresita Hodge, DO [address] [facility] [place] [address] (work) documented as of this encounter Procedures Procedure Name Priority Date/Time Associated Diagnosis Comments US OB CERVICAL LENGTH 06/22/2024 1:10 PM EST documented in this encounter Results * US OB CERVICAL LENGTH (06/22/2024 1:10 PM EST) Anatomical Region Laterality Modality Other 06/22/2024 1:10 PM EST Narrative 06/22/2024 1:12 PM EST The [address] [address] Ultrasound Report Signed Patient: ALEXANDRA HIGGINS MR#: [id number] : 2000 Acct:[id number] Age/Sex: 23 / F ADM Date: 06/22/24 Loc: US Attending Dr: Teresita Hodge D.O. Ordering Physician: Teresita Hodge D.O. Date of Service: 06/22/24 Procedure(s): US OB cervical length Accession Number(s): [id number] cc: Teresita Hodge D.O.; Physician,Non-Staff M.DConcetta The [address] [address] Patient Name: ALEXANDRA HIGGINS MRN: [id number] date: 2000 Sex: F Assigned Patient Location: US Current Patient Location: US Accession/Order Number: [id number] Exam Date: 06/22/2024 10:15 Report Date: 06/22/2024 [...] Signed By: 06/22/24 1312 DD/ 1310 TD/TT: Slate Mixer: Procedure Note Radiology, Radiologist, MD - 06/22/2024 [place] [address] Ultrasound Report Signed Patient: ALEXANDRA HIGGINS DMR#: [id number] : 2000Acct:[id number] Age/Sex: 23 / FADM Date: 06/22/24 Loc: US Attending Dr: Teresita Hodge D.O. Ordering Physician: Teresita Hodge D.O. Date of Service: 06/22/24 Procedure(s): US OB cervical length Accession Number(s): [id number] cc: Teresita Hodge D.O.; Physician,Non-Staff Viri The [place] [id number] Patient Name: ALEXANDRA HIGGINS MRN: [id number] date: 2000 Sex: F Assigned Patient Location: US Current Patient Location: US Accession/Order Number: [id number] Exam Date: 06/22/2024 10:15 Report Date: 06/22/2024 [...] 13:10 Dictated By: Arias Jade M.D. Signed By:06/22/24 1312 DD/ 1310 TD/TT: Slate Mixer: us Teresita Ayesha DO [facility] Final Result documented in this encounter Visit Diagnoses Not on filedocumented in this encounter
--- OUTSIDE RECORDS SUMMARY | 2025-05-06 10:18 | XMS_ITS | CCD ---
Author Organization [facility] Care Team Providers Care Stove Polisher Name Role Phone ALEXIA BARRETT Attending Unavailable AYESHAANDRZEJ Munoz Attending Unavailable KARASIK ., DR HALE [...] MIS, Attending Unavailable AYESHA, ANDRZEJ Attending Unavailable FELIPE, HENRIQUE Attending Unavailable AYESHA, ANDRZEJ Attending Unavailable AYESHA, ANDRZEJ Attending Unavailable MIS, Attending Unavailable AYESHA, ANDRZEJ Attending Unavailable MIS, Attending Unavailable FELIPE, HENRIQUE Attending Unavailable MIS, Attending Unavailable MIS, Attending Unavailable LizValerie Attending Unavailable Allergies Allergy Classification Reported Allergen(s) Allergy Type Date of Onset Reaction(s) Facility (6 sources) Pollen; Translations: [POLLEN EXTRACTS] Propensity to adverse reactions to drug 5 Eye Swelling [facility] (20 sources) Pollen Propensity to adverse reactions 5 [...] constipation 60 capsule 5 08/14/2024 11/12/2024 Active etonogestrel 68 mg drug implant (7 sources) Progestin Start: 01-14-2025 End: 01-14-2028 etonogestrel-elutin g 68 mg contraceptive implant 1 each metroNIDAZOLE 500 mg oral tablet (6 sources) [...] this medication. 14 tablet 09/11/2024 09/18/2024 Active phenazopyridine hydrochloride 100 mg oral tablet (2 sources) Start: 04-18-2025 End: 04-21-2025 take 1 tablet by mouth three times daily as needed for muscle spasms phenazopyridine (Pyridium) 100 MG tablet Indications: Pelvic pain in female Take 1 tablet (100 mg) by mouth 3 (three) times a day as needed for bladder spasms for up to 3 days 10 tablet 04/18/2025 04/21/2025 Active [id number] AC-DHA ORAL (4 sources) [id number] AC-DHA ORAL Take by mouth. Active progesterone [...] Drug Class(es) Dates Sig (Normalized) Sig (Original) [id number] 200 actuat albuterol 0.09 mg/actuat metered dose [...] time. 0 09/21/2022 08/31/2023 Discontinued (Therapy completed) EP-Mec-XT-[place]-3 ( Gummies/DHA & FA) 0.4-32.5 MG chewable tablet (1 source) Start: 03-03-2023 End: 08-31-2023 EU-Npc-UQ-[place]-3 ( Gummies/DHA & FA) 0.4-32.5 MG chewable [...] Date Documented Da te Episodic/Chronic Abdominal pain (3 sources) Pelvic and perineal pain; Translations: [Pain in female pelvis] Onset: 10-15-2022 04-18-2025 Episodic Administrative/social admission (6 sources) Patient encounter status; Translations: [Encounter for [...] [35 weeks gestation of ] 12-11-2024 Episodic Residual codes; unclassified (2 sources) Gestation period, 37 weeks; Translations: [37 weeks gestation of ] 12-20-2024 Episodic Spontaneous (4 sources) Incomplete spontaneous without [...] Range Facility Urinalysis macro (dipstick) panel (U)on 04-18-2025 Bilirubin, UA Negative Negative - 4(70) +++ mg/dL [facility] Blood, UA Negative Negative - 50 William/mcL [facility] Healthcare Clarity, UA Clear [facility] Color, UA Yellow [facility] Glucose, UA Negative Negative - 1999(110) ++++ mg/dL [facility] Interpretation and review of laboratory results Normal [facility] Ketones, UA Negative Negative - 160(16) ++++ mg/dL [facility] Leukocytes, UA Negative Negative - 500+++ Roma/mcL [facility] Healthcare Nitrite, UA Negative Negative - Positive [facility] pH, UA 6 5 - 9 [facility] Healthcar e Protein, UA Negative Negative - 1999(20) ++++ mg/dL [facility] Spec Grav, UA 1.03 1 - 1.03 [facility] Urobilinogen, UA 0.2 0.2 - 12 mg/dL [facility] HCG ( test) Ql (U)o n 02-05-2025 Interpretation and review of laboratory results Normal [facility] Preg Test, Ur Negative Negative [facility] Urinalysis macro (dipstick) panel (U)on 02-05-2025 Bilirubin, UA Negative Negative - 4(70) +++ mg/dL [facility] Blood, UA Positive Negative - 50 William/mcL [facility] Healthcare Clarity, UA Clear [facility] Healthca re Color, UA Yamileth [facility] Healthcar e Glucose, UA Negative Negative - 1999(110) ++++ mg/dL [facility] Interpretation and review of laboratory results Abnormal [facility] Ketones, UA Negative Negative - 160(16) ++++ mg/dL [facility] Leukocytes, UA Negative Negative - 500+++ Roma/mcL [facility] Healthcare Nitrite, UA Negative Negative - Positive [facility] pH, UA 7 5 - 9 [facility] Health[facility] e Protein, UA Negative Negative - 1999(20) ++++ mg/dL [facility] Spec Grav, UA 1.02 1 - 1.03 [facility] Urobilinogen, UA 1.0 0.2 - 12 mg/dL [facility] HCG ( test) Ql (U)o n 01-14-2025 Interpretation and review of laboratory results Normal [facility] Preg Test, Ur Negative Negative [facility] care [facility] ALL CBC WITH AUTO DIFFon BASOPHILS ABSOLUTE AUTO 0 [facility] Basophils/100 WBC (Bld) 0.2 % 0.2 - 2.0 % [facility] Eosinophils/100 WBC (Bld) 0.3 % Low 0.9 - 7.0 % [facility] Erythrocyte distribution width (RBC) [Ratio] 14.9 % 11.0 - 15.0 % [facility] Hematocrit (Bld) [Volume fraction] 29.3 % Low 36.0 - 48.0 % [facility] Hemoglobin (Bld) [Mass/Vol] 9.2 g/dL Low 12.0 - 16.0 g/dL [facility] IMMATURE GRANULOCYTES ABS AUTO 0.03 [facility] Immature granulocytes/100 WBC (Bld) 0.3 % 0.0 - 0.5 % [facility] Interpretation and review of laboratory results Abnormal [facility] LYMPHOCYTES ABSOLUTE AUTO 2.2 [facility] Lymphocytes/100 WBC (Bld) 22.8 % 20.5 - 60.0 % [facility] MCH (RBC) [Entitic mass] 25.4 pg Low 26.7 - 34.0 pg [facility] MCHC (RBC) [Mass/Vol] 31.4 g/dL 29.9 - 35.2 g/dL [facility] MCV (RBC) [Entitic vol] 80.9 fL Low 81.0 - 99.0 fL [facility] MONOCYTES ABSOLUTE AUTO 1 High [facility] Monocytes/100 WBC (Bld) 11 % 1.7 - 12.0 % [facility] NEUTROPHILS ABSOLUTE AUTO 6.2 [facility] Neutrophils/100 WBC (Bld) 65.4 % 43.0 - 75.0 % [facility] Platelet mean volume (Bld) [Entitic vol] 11.4 fL 9.5 - 13.5 fL [facility] are TBH EO # 0 [facility] TBH PLT 222 [facility] TB[facility] RBC 3.62 Low [facility] TB[facility] WBC 9.5 [facility] HMHP CBC WITH PLATELET NO DI FFERENTIALon 12-24-2024 Erythrocyte distribution width (RBC) [Ratio] 14.8 % 11.0 - 15.0 % [facility] Hematocrit (Bld) [Volume fraction] 29.9 % Low 36.0 - 48.0 % [facility] Hemoglobin (Bld) [Mass/Vol] 9.5 g/dL Low 12.0 - 16.0 g/dL [facility] Interpretation and review of laboratory results Abnormal [facility] MCH (RBC) [Entitic mass] 25.7 pg Low 26.7 - 34.0 pg [facility] MCHC (RBC) [Mass/Vol] 31.8 g/dL 29.9 - 35.2 g/dL [facility] MCV (RBC) [Entitic vol] 81 fL 81.0 - 99.0 fL [facility] Platelet mean volume (Bld) [Entitic vol] 11.3 fL 9.5 - 13.5 fL [facility] PLT 243 [facility] e TB RBC 3.69 Low [facility] e TB WBC 8.8 [facility] Health[facility] e Urinalysis macro (dipstick) panel (U)on 12-20-2024 Bilirubin, UA Negative Negative - 4(70) +++ mg/dL [facility] Blood, UA Negative Negative - 50 William/mcL [facility] Clarity, UA Clear [facility] Healthca re Color, UA Yellow [facility] e Glucose, UA Negative Negative - 1999(110) ++++ mg/dL [facility] Interpretation and review of laboratory results Abnormal [facility] Ketones, UA Negative Negative - 160(16) ++++ mg/dL [facility] Leukocytes, UA Positive Negative - 500+++ Roma/mcL [facility] Comment on above: small Nitrite, UA Negative Negative - Positive [facility] pH, UA 7 5 - 9 [facility] e Protein, UA Negative Negative - 1999(20) ++++ mg/dL [facility] Spec Grav, UA 1.02 1 - 1.03 [facility] Urobilinogen, UA 0.2 0.2 - 12 mg/dL [facility] TB UA (CLEAN/CATCH) MOTOR BLOCK MECHANIC/KEARA RO IF IND.on 12-19-2024 BILIRUBIN URINE Negative NEGATIVE [facility] thcare BLOOD URINE Negative NEGATIVE [facility] Healthca re Clarity (U) CLEAR CLEAR [facility] Health[facility] re Color (U) YELLOW YELLOW [facility] Healthcar e GLUCOSE URINE UA Negative NEGATIVE mg/dL [facility] Interpretation and review of laboratory results Abnormal [facility] Ketones Ql (U) Negative NEGATIVE mg/dL [facility] Leukocyte esterase Test strip Ql (U) TRACE Abnormal NEGATIVE [facility] Healthcar e NITRITE URINE Negative NEGATIVE [facility] care pH (U) 6.0 [pH] 5.0 - 9.0 [facility] Healthcar e PROTEIN URINE TRACE NEG/TRACE mg/dL [facility] SPECIFIC GRAVITY URINE 1.025 1.005 - 1.025 [facility] URINE MICROSCOPIC INDICATED YES [facility] UROBILINOGEN URINE 1.0 EU/dL 0.2 - 1.0 EU/dL [facility] TBH UA (CLEAN/CATCH) MOTOR BLOCK MECHANIC/KEARA RO IF IND.on 12-11-2024 BILIRUBIN URINE Negative NEGATIVE [facility] BLOOD URINE Negative NEGATIVE [facility] Healthca re Clarity (U) CLEAR CLEAR [facility] re Color (U) LT. YELLOW YELLOW [facility] GLUCOSE URINE UA Negative NEGATIVE mg/dL [facility] Interpretation and review of laboratory results Abnormal [facility] Ketones Ql (U) Negative NEGATIVE mg/dL [facility] Leukocyte esterase Test strip Ql (U) TRACE Abnormal NEGATIVE [facility] Healthcar e NITRITE URINE Negative NEGATIVE [facility] pH (U) 6.0 [pH] 5.0 - 9.0 [facility] e PROTEIN URINE Negative NEG/TRACE mg/dL [facility] SPECIFIC GRAVITY URINE 1.025 1.005 - 1.025 [facility] URINE MICROSCOPIC INDICATED YES [facility] UROBILINOGEN URINE 0.2 EU/dL 0.2 - 1.0 EU/dL [facility] Urinalysis macro (dipstick) panel (U)on 12-11-2024 Bilirubin, UA Negative Negative - 4(70) +++ mg/dL [facility] Blood, UA Negative Negative - 50 William/mcL [facility] Clarity, UA Clear [facility] Healthca re Color, UA Yellow [facility] Health[facility] e Glucose, UA Negative Negative - 2000(110) ++++ mg/dL [facility] Interpretation and review of laboratory results Abnormal [facility] Ketones, UA Positive Negative - 160(16) ++++ mg/dL [facility] Comment on above: 40 Leukocytes, UA Positive Negative - 500+++ Roma/mcL [facility] Comment on above: small Nitrite, UA Negative Negative - Positive [facility] pH, UA 7 5 - 9 [facility] Healthcar e Protein, UA Negative Negative - 1999(20) ++++ mg/dL [facility] Spec Grav, UA 1.02 1 - 1.03 [facility] Urobilinogen, UA 0.2 0.2 - 12 mg/dL [facility] TBH UA (CLEAN/CATCH) MOTOR BLOCK MECHANIC/KEARA RO IF IND.on 11-26-2024 BILIRUBIN URINE Negative NEGATIVE [facility] thcare BLOOD URINE Negative NEGATIVE [facility] Healthca re Clarity (U) SL CLOUDY CLEAR [facility] Healthca re Color (U) LT. YELLOW YELLOW [facility] Healthcar e GLUCOSE URINE UA Negative NEGATIVE mg/dL [facility] Interpretation and review of laboratory results Abnormal [facility] Ketones Ql (U) Negative NEGATIVE mg/dL [facility] Leukocyte esterase Test strip Ql (U) SMALL Abnormal NEGATIVE [facility] Healthcar e NITRITE URINE Negative NEGATIVE [facility] care pH (U) 8.0 [pH] 5.0 - 9.0 [facility] e PROTEIN URINE Negative NEG/TRACE mg/dL [facility] SPECIFIC GRAVITY URINE 1.015 1.005 - 1.025 [facility] URINE MICROSCOPIC INDICATED YES [facility] UROBILINOGEN URINE 0.2 EU/dL 0.2 - 1.0 EU/dL [facility] Healthcar e Urinalysis macro (dipstick) panel (U)on 11-07-2024 Bilirubin, UA Negative Negative - 4(70) +++ mg/dL [facility] Blood, UA Negative Negative - 50 William/mcL [facility] Clarity, UA Clear [facility] Healthca re Color, UA Yellow [facility] Healthcar e Glucose, UA Negative Negative - 1999(110) ++++ mg/dL [facility] Interpretation and review of laboratory results Abnormal [facility] Ketones, UA Negative Negative - 160(16) ++++ mg/dL [facility] Leukocytes, UA Positive Negative - 500+++ Roma/mcL [facility] Comment on above: small Nitrite, UA Negative Negative - Positive [facility] pH, UA 6.5 5 - 9 [facility] Healthcar e Protein, UA Negative Negative - 1999(20) ++++ mg/dL [facility] Spec Grav, UA 1.015 1 - 1.03 [facility] Urobilinogen, UA 0.2 0.2 - 12 mg/dL [facility] TBH UA (CLEAN/CATCH) MOTOR BLOCK MECHANIC/KEARA RO IF IND.on 10-15-2024 BILIRUBIN URINE Negative NEGATIVE [facility] BLOOD URINE Negative NEGATIVE [facility] re Clarity (U) CLEAR CLEAR [facility] Healthca re Color (U) LT. YELLOW YELLOW [facility] Healthcar e GLUCOSE URINE UA Negative NEGATIVE mg/dL [facility] Interpretation and review of laboratory results Abnormal [facility] Healthcare Ketones Ql (U) Negative NEGATIVE mg/dL [facility] H ealthcare Leukocyte esterase Test strip Ql (U) TRACE Abnormal NEGATIVE [facility] Healthcar e NITRITE URINE Negative NEGATIVE [facility] Health care pH (U) 8.5 [pH] 5.0 - 9.0 [facility] Healthcar e PROTEIN URINE Negative NEG/TRACE mg/dL [facility] SPECIFIC GRAVITY URINE 1.015 1.005 - 1.025 [facility] URINE MICROSCOPIC INDICATED YES [facility] UROBILINOGEN URINE 0.2 EU/dL 0.2 - 1.0 EU/dL [facility] Healthcar e US OB LIMITED 1+ FETUSESon [...] UA Negative Negative - 4(70) +++ mg/dL [facility] Blood, UA Negative Negative - 50 William/mcL [facility] Clarity, UA Clear [facility] re Color, UA Yellow [facility] Healthcar e Glucose, UA Negative Negative - 1999(110) ++++ mg/dL [facility] Interpretation and review of laboratory results Abnormal [facility] Ketones, UA Positive Negative - 160(16) ++++ mg/dL [facility] Comment on above: 40mg/dL Leukocytes, UA Positive Negative - 500+++ Roma/mcL [facility] Comment on above: small Nitrite, UA Negative Negative - Positive [facility] pH, UA 6.5 5 - 9 [facility] Healthcar e Protein, UA Negative Negative - 1999(20) ++++ mg/dL [facility] Spec Grav, UA 1.025 1 - 1.03 [facility] Urobilinogen, UA 0.2 0.2 - 12 mg/dL [facility] AFP, SERUM, OPEN SPINA BIFID Aon 09-01-2024 AFP MOM 1.38 . [facility] Healthcar e AFP VALUE 86.3 ng/mL . [facility] Healthcar e COMMENT: Comment . [facility] Healthcar e Comment on above: Kristi Han , Ph.D., [facility] Director References: Available Upon Request. Multiples Of Median Cutoffs For AFP Elevations [place] 2.5 Black 2.8 IDD 2.0 Twins 4.5 Abbreviation Definitions IDD - Insulin Dep Diabetes OSBR - Open Spina Bifida Risk For further inquiries contact [employer] [facility] at [phone]. This test was developed and its performance characteristics determined by [employer]. It has not been cleared or approved by the Food and Drug Administration. Performed at: [facility] [address], [place], [place] [id number] Senior Linux Systems Engineer: Marisel Lewis [facility], Phone: [phone] GEST. AGE ON COLLECTION DATE 21.1 . weeks [facility] GESTAT. AGE BASED ON LMP . [facility] Comment on above: Recalculations are n ot recommended when gestational dating by LMP and ultrasound are within 10 days. INSULIN DEP DIABETES No . [facility] INTERPRETATION Comment . [facility] Healt hcare Comment on above: Interpretation: Scre [...] Customer Services to discuss available options. The [employer] recommends amniocentesis be offered to women age 35 and older. MATER[age] [facility] Healthcare MULTIPLE GESTATION No . [facility] OSBR RISK 1 [place] [phone] . [facility] Healt hcare RACE Black . [facility] Healthcar e RESULTS Report . [facility] [employer] TEST RESULTS: Negative . [facility] Health care WEIGHT 183 . lbs [facility] Healthcar e N N LMP [id number] [phone] N 1 183 N N N N N Black/ [facility] Healthcar e US OB 14+ WEEKS ANATOMY [...] UA Negative Negative - 4(70) +++ mg/dL [facility] Blood, UA Negative Negative - 50 William/mcL [facility] Clarity, UA Clear [facility] re Color, UA Yellow [facility] Glucose, UA Negative Negative - 2000(110) ++++ mg/dL [facility] Interpretation and review of laboratory results Normal [facility] Ketones, UA Negative Negative - 160(16) ++++ mg/dL [facility] Leukocytes, UA Negative Negative - 500+++ Roma/mcL [facility] Nitrite, UA Negative Negative - Positive [facility] pH, UA 7 5 - 9 [facility] e Protein, UA Negative Negative - 2000(20) ++++ mg/dL [facility] Spec Grav, UA 1.02 1 - 1.03 [facility] Urobilinogen, UA 0.2 0.2 - 12 mg/dL [facility] Healthcar e US OB TRANSVAGINALon 025 US [...] GDLNon AGE GDLN ACOG TESTING Note . [facility] Comment on above: TESTS RESULT FLAG UN ITS REF RANGE LAB Clinician Provided Cytology Information Source.............Cervix No. of containers..01 ThinPrep Vial Age Algo ACOG Kassidy... FLAG LEGEND: L-Low Normal,H-High Normal,LL-Alert Low,HH-Alert High <-Panic Low,>-Panic High,A-Abnormal,AA-Critical Abnormal Performed at: 01 =[facility] [address] Cortney Arciniega MD, IGP, RFX APTIMA HPV ASCU Note . [facility] Comment on above: TESTS RESULT FLAG UN ITS REF RANGE LAB DIAGNOSIS: 02 NEGATIVE FOR INTRAEPITHELIAL LESION OR MALIGNANCY. Specimen adequacy: 02 Satisfactory for evaluation. No endocervical component is identified. Performed by: 02 Bry Segundo, Blood Bank Booking Clerk (ASCP) . 02 Note: Note 02 The Pap [...] <-Panic Low,>-Panic High,A-Abnormal,AA-Critical Abnormal Performed at: [address] [id number] Cortney Arciniega MD, Performed at: = - [facility] [address] [id number] Senior Linux Systems Engineer: Cortney Arciniega MD, Phone: [phone] Performed at: [facility] [address] [id number] Senior Linux Systems Engineer: Cortney Arciniega MD, Phone: [phone] [facility] Urinalysis macro (dipstick) panel (U)on 07-16-2024 Bilirubin, UA Negative Negative - 4(70) +++ mg/dL [facility] Blood, UA Negative Negative - 50 William/mcL [facility] Clarity, UA Clear [facility] re Color, UA Yellow [facility] Glucose, UA Negative Negative - 1999(110) ++++ mg/dL [facility] Interpretation and review of laboratory results Normal [facility] Ketones, UA Negative Negative - 160(16) ++++ mg/dL [facility] Leukocytes, UA Negative Negative - 500+++ Roma/mcL [facility] Nitrite, UA Negative Negative - Positive [facility] pH, UA 8.5 5 - 9 [facility] Healthcar e Protein, UA Negative Negative - 1999(20) ++++ mg/dL [facility] Spec Grav, UA 1.02 1 - 1.03 [facility] Urobilinogen, UA 0.2 0.2 - 12 mg/dL [facility] BOX TESTon 06-14-2024 BOX TEST SENT OUT [facility] [employer] BOX1 UNITY [facility] Healthcar e BOX2 06/14/24 [facility] Healthcar e UNITY BOX [facility] No Panel Informationon 06-14 [facility] Healthcar e Rubella IGG immune statuson 06-14-2024 Rubella immune IgG IMMUNE [facility] HCG ( test) Ql (U)o n 06-07-2024 Interpretation and review of laboratory results Abnormal [facility] Preg Test, Ur Positive Negative [facility] Urinalysis macro (dipstick) panel (U)on 06-07-2024 Bilirubin, UA Negative Negative - 4(70) +++ mg/dL [facility] Blood, UA Negative Negative - 50 William/mcL [facility] Clarity, UA Clear [facility] re Color, UA Yellow [facility] e Glucose, UA Negative Negative - 1999(110) ++++ mg/dL [facility] Interpretation and review of laboratory results Abnormal [facility] Ketones, UA Negative Negative - 160(16) ++++ mg/dL [facility] Leukocytes, UA Positive Negative - 500+++ Roma/mcL [facility] Comment on above: small Nitrite, UA Negative Negative - Positive [facility] pH, UA 7.5 5 - 9 [facility] Healthcar e Protein, UA Negative Negative - 1999(20) ++++ mg/dL [facility] Spec Grav, UA 1.02 1 - 1.03 [facility] Urobilinogen, UA 0.2 0.2 - 12 mg/dL [facility] Urinalysis macro (dipstick) panel (U)Ordered By: Shantel Rangel on 08-31-2023 Bilirubin, UA Negative Negative - 4(70) +++ mg/dL [facility] Blood, UA Negative Negative - 50 William/mcL [facility] Clarity, UA Clear [facility] Healthca re Color, UA Yellow [facility] Healthcar e Glucose, UA Negative Negative - 2000(110) ++++ mg/dL [facility] Interpretation and review of laboratory results Abnormal [facility] Ketones, UA Positive Negative - 160(16) ++++ mg/dL [facility] Leukocytes, UA Trace Negative - 500+++ Roma/mcL [facility] Nitrite, UA Negative Negative - Positive [facility] pH, UA 7.5 5 - 9 [facility] e Protein, UA Trace Negative - 2000(20) ++++ mg/dL [facility] Spec Grav, UA 1.020 1 - 1.03 [facility] Urobilinogen, UA 0.2 0.2 - 12 mg/dL [facility] PAP ACOG PANEL 2: 21 to 29on 11-17-2022 . . Normal [facility] Comment on above: Performed By: #### [id number] #### [facility] [place] [facility] [address] [address] [address] Aleah Peres Age Gdln ACOG Testing - [facility] Comment on above: Performed By: #### 4 [id number] #### [facility] [place] [facility] [address] [address] [address] Aleah Peres DIAGNOSIS: Comment [facility] Comment on above: Result Comment: NEGA TIVE FOR INTRAEPITHELIAL LESION OR MALIGNANCY. Performed By: #### 4 [id number] #### [facility] [place] [facility] [address] [address] [address] Aleah Peres Methodology: Comment [facility] Comment on above: Result Comment: This liquid based ThinPrep(R) pap test was screened with the use of an image guided system. Performed By: #### 4 [id number] #### [facility] [place] [facility] [address] [address] [address] Aleah Peres Note: Comment [facility] Comment on above: Result Comment: The Pap smear is a screening test designed to aid in the detection of premalignant and malignant conditions of the uterine cervix. It is not a diagnostic procedure and should not be used as the sole means of detecting cervical cancer. Both false-positive and false-negative reports do occur. . Performed By: #### 4 [id number] #### [facility] [place] [facility] [address] [place] [address] Dr. Aleah Peres Performed by: Comment Normal [facility] Comment on above: Result Comment: Annelise Martinez Blood Bank Booking Clerk Performed By: #### 4 [id number] #### [facility] [place] [facility] [address] [place] [address] Dr. Aleah Peres Reflex Criteria: Comment Normal [facility] Comment on above: Result Comment: The HPV DNA reflex criteria were not met with this specimen result therefore, no HPV testing was performed. . Performed By: #### 4 [id number] #### [facility] [place] [facility] [address] [place] [address] Dr. Aleah Peres Specimen adequacy: Comment Normal [facility] Comment on above: Result Comment: Sati sfactory for evaluation. Endocervical and/or squamous metaplastic cells (endocervical component) are present. Performed By: #### 4 [id number] #### [facility] [place] [facility] [address] [place] [address] Dr. Aleah Peres Cytology Cervical or vaginal smear or scraping studyon 11-10-2022 [facility] OCC BLD IMMUNO SCREENon OCCULT BLOOD Negative Normal NEGATIVE [facility] Comment on above: Performed By: #### O BSCRN #### [facility] [place] [facility] [address] [place] [address] Dr. Aleah Peres SURGICAL PATH REPORTon 10-11 SURGICAL PATH REPORT [facility] Department of Pathology [address] [place] [address] [phone] Name: CAMERON HIGGINS : 2000 [facility] [id number] Number: Gender Female [facility] : n: Admit 22 years Attending ALEXIA BARRETT Age: Provider: Ordering ALEXIA BARRETT Provider: Consulti Surgical Pathology Report ng: ACCESSION: COLLECTED DATE/TIME: RECEIVED DATE/TIME: PATHOLOGIST: [id number] 10/08/2022 12:03 EDT 10/08/2022 12:03 EDT TOM AGUERO MD Final Diagnosis Report for [facility] [place] RETAINED PRODUCTS OF CONCEPTION: - CHORIONIC [...] ald 10/08/2022 Tissue pathology report for: [facility], [address] [place] [id number]; ____ Print 10/11/2022 15:01 EDT Number: Date/Time: [facility] Department of Pathology [address] [place] [id number] Name: CAMERON HIGGINS : 2000 [facility] [id number] Number: Gender Female [facility] [place] : n: Admit 22 years Attending ALEXIA BARRETT Age: Provider: Ordering ALEXIA BARRETT Provider: Consulti Surgical Pathology Report ng: ACCESSION: COLLECTED DATE/TIME: RECEIVED DATE/TIME: PATHOLOGIST: [id number] 10/08/2022 12:03 EDT 10/08/2022 12:03 EDT LACI KHAN, TOM Gross Description PATHOLOGY SERVICES PROVIDED BY [facility] (CLIA #[id number]) in cooperation with [facility] at [address] [place] [address] ( CLIA #[id number]) Codes CPT CODE: 80270 ____ Print 10/11/2022 15:01 EDT Number: Date/Time: Normal [facility] Comment on above: Performed By: #### 9 [id number] #### [facility] Laboratory Services [address] [place] [address] Family Consumer Science Teacher: Tom Aguero MD URon 10-08-2022 , QUAL Negative Normal NEGATIVE [facility] Comment on above: Performed By: #### P REGU #### [facility] [place] [facility] [address] [place] [address] Dr. Aleah Peres US PELVIS AND TRANSVAGon [...] Normal The [facility] [place] SURGICAL PATH REPORTon 09-16 SURGICAL PATH REPORT [facility] Department of Pathology [address] [place] [address] Name: ALEXANDRA HIGGINS : 2000 [employer] [id number] Number: Gender Female [facility] : n: Admit 22 years Attending ANDRZEJ HODGE Age: Provider: Ordering ANDRZEJ HODGE Provider: Consulti Surgical Pathology Report ng: ACCESSION: COLLECTED DATE/TIME: RECEIVED DATE/TIME: PATHOLOGIST: [id number] 09/15/2022 12:34 EST 09/15/2022 12:34 HENRY MOREIRA MD, LUIS ERAZO Final Diagnosis Report for [facility] [place] PRODUCTS OF CONCEPTION, DILATION AND CURETTAGE: - CHORIONIC VILLI ARE PRESENT; NO SIGNIFICANT ATYPIA IS OBSERVED. - BENIGN MATERIAL DECIDUA PRESENT. - NO PARTS ARE IDENTIFIED. LUIS MOREIRA PATHOLOGIST (Electronic Signature) Date Verified 09/16/2022 LN Clinical Data PRE-OP DIAGNOSIS: Not specified POST-OP DIAGNOSIS: Missed PROCEDURES: D and C with suction SPECIMEN: Products of conception / personal care aid Gross Description Labeled products of conception. Received in formalin in a suction sock are multiple irregular segments of medrano pink to red black soft tissue. The individual segments have a variable granular to partially smooth glistening membranous character. The specimen in total aggregate measures 12.5 x 7.5 x 4.0 cm. There are no grossly identifiable parts. Hand Rigger sections are submitted in three cassettes. MP/ald 09/15/2022 ____ Print 09/16/2022 14:53 EST Number: Date/Time: [facility] Department of Pathology [address] [place] [phone] Name: ALEXANDRA HIGGINS : 2000 [employer] [id number] Number: Gender Female [facility] : n: Admit 22 years Attending ANDRZEJ HODGE Age: Provider: Ordering ANDRZEJ HODGE Provider: Consulti Surgical Pathology Report ng: ACCESSION: COLLECTED DATE/TIME: RECEIVED DATE/TIME: PATHOLOGIST: [id number] 09/15/2022 12:34 EST 09/15/2022 12:34 EST LILLIE KHAN, LUIS ERAZO Gross Description Tissue pathology report for: [facility], [address] [place] [address]; [facility]OLOG[facility] (CLIA #[id number]) in cooperation with [facility] at [address] [place] [address] ( CLIA #[id number]) Codes CPT CODE: 86320 ____ Print 09/16/2022 14:53 EST Number: Date/Time: Normal [facility] Comment on above: Performed By: #### [id number] #### [facility] Laboratory Services [address] [place] [address] Family Consumer Science Teacher: Tom Aguero MD CBC AUTO DIFFon 09-15-2022 BASO # 0.0 103/ul Normal 0.0-0.1 The [facility] [place] Comment on above: Performed By: #### C BC #### [facility] [place] [facility] [address] [address] [address] Aleah Peres Basophils/100 WBC (Bld) 0.4 % Normal 0.2-2.0 [facility] Comment on above: Performed By: #### C BC #### [facility] [place] [facility] [address] [place] [address] Dr. Aleah Peres EO # 0.1 103/ul Normal 0.0-0.7 The [facility] [place] Comment on above: Performed By: #### C BC #### [facility] [place] [facility] [address] [place] [address] Dr. Aleah Peres Eosinophils/100 WBC (Bld) 1.3 % Normal 0.9-7.0 [facility] [place] Comment on above: Performed By: #### C BC #### [facility] [place] [facility] [address] [place] [address] Dr. Aleah Peres Erythrocyte distribution width (RBC) [Ratio] 13.8 % Normal 11.0-15.0 [facility] Comment on above: Performed By: #### C BC #### [facility] [place] [facility] [address] [place] [address] Dr. Aleah Peres Hematocrit (Bld) [Volume fraction] 35.5 % Critically low 36.0-48.0 [facility] Comment on above: Performed By: #### C BC #### [facility] [place] [facility] [address] [place] [address] Dr. Aleah Peres Hemoglobin (Bld) [Mass/Vol] 11.6 g/dL Critically low 12.0-16.0 [facility] [place] Comment on above: Performed By: #### C BC #### [facility] [place] [facility] [address] [place] [address] Dr. Aleah Peres IG # 0.03 10e3/ul Normal 0.00-0.03 [facility] [place] Comment on above: Performed By: #### C BC #### [facility] [place] [facility] [address] [place] [address] Dr. Aleah Peres IG % 0.4 % Normal 0.0-0.5 [facility] [place] Comment on above: Performed By: #### C BC #### [facility] [place] [facility] [address] [place] [address] Dr. Aleah Peres LYMPH # 2.8 103/ul Normal 1.2-3.8 [facility] [place] Comment on above: Performed By: #### C BC #### [facility] [place] [facility] [address] [place] [address] Dr. Aleah Peres Lymphocytes/100 WBC (Bld) 32.9 % Normal 20.5-60.0 [facility] Comment on above: Performed By: #### C BC #### [facility] [place] [facility] [address] [place] [address] Dr. Aleah Peres MANUAL DIFF REQ NO Normal [facility] Comment on above: Performed By: #### C BC #### [facility] [place] [facility] [address] [place] [address] Dr. Aleah Peres MCH (RBC) [Entitic mass] 26.9 pg Normal 26.7-34.0 [facility] Comment on above: Performed By: #### C BC #### [facility] [place] [facility] [address] [place] [address] Dr. Aleah Peres MCHC (RBC) [Mass/Vol] 32.7 g/dL Normal 29.9-35.2 [facility] [place] Comment on above: Performed By: #### C BC #### [facility] [place] [facility] [address] [place] [address] Dr. Aleah Peres MCV (RBC) [Entitic vol] 82.4 fL Normal 81.0-99.0 [facility] Comment on above: Performed By: #### C BC #### [facility] [place] [facility] [address] [place] [address] Dr. Aleah Peres MONO # 0.7 103/ul Normal 0.3-0.8 [facility] Comment on above: Performed By: #### C BC #### [facility] [place] [facility] [address] [place] [address] Dr. Aleah Peres Monocytes/100 WBC (Bld) 8.6 % Normal 1.7-12.0 [facility] Comment on above: Performed By: #### C BC #### [facility] [place] [facility] [address] [place] [address] Dr. Aleah Peres NEUT # 4.8 103/ul Normal 1.4-6.5 [facility] Comment on above: Performed By: #### C BC #### [facility] [place] [facility] [address] [place] [address] Dr. Aleah Peres Neutrophils/100 WBC (Bld) 56.4 % Normal 43.0-75.0 [facility] Comment on above: Performed By: #### C BC #### [facility] [place] [facility] [address] [place] [address] Dr. Aleah Peres Platelet mean volume (Bld) [Entitic vol] 9.9 fL Normal 9.5-13.5 [facility] Comment on above: Performed By: #### C BC #### [facility] [place] [facility] [address] [place] [address] Dr. Aleah Peres PLT 316 103/ul Normal 150-450 [facility] [place] Comment on above: Performed By: #### C BC #### [facility] [place] [facility] [address] [place] [address] Dr. Aleah Peres RBC 4.31 106/ul Normal 4.20-5.40 [facility] [place] Comment on above: Performed By: #### C BC #### [facility] [place] [facility] [address] [place] [address] Dr. Aleah Peres WBC 8.4 103/ul Normal 4.0-11.0 [facility] Comment on above: Performed By: #### C BC #### [facility] [place] [facility] [address] [place] [address] Dr. Aleah Peres PREG QUANT HCGon 09-15-2022 HCG QUANT 58091 mIU/mL Normal The [facility] [place] Comment on above: Performed By: #### P REGQNT #### [facility] [place] [facility] [address] [place] [address] Dr. Aleah Peres HCG RANGE SEE BELOW Normal [facility] [place] Comment on above: Result Comment: 5-50 0.2-1 WEEK 50-500 1-2 WEEKS 100-5,000 2-3 WEEKS 500-10,000 3-4 WEEKS 1,000-50,000 4-5 WEEKS 10,000-100,000 5-6 WEEKS 15,000-200,000 6-8 WEEKS 10,000-100,000 2-3 MONTHS Performed By: #### P REGQNT #### [facility] [place] [facility] [address] [place], [place] [address] Dr. Aleah Peres TYPE AND SCREENon 09-15-2022 TYPE AND SCREEN Negative Normal [facility] Comment on above: Performed By: #### P REGQNT #### [facility] [place] [facility] [address] [place], [place] [address] Dr. Aleah Peres US PELVISon 09-15-2022 US [...] Normal The [facility] US PREG TVon 09-13-2022 US PREG TV [...] Normal The [facility] CBC AUTO DIFFon 08-16-2022 BASO # 0.0 103/ul Normal 0.0-0.1 The [facility] [place] Comment on above: Performed By: #### C BC #### [facility] [place] [facility] [address] [place] [address] Dr. Aleah Peres Basophils/100 WBC (Bld) 0.4 % Normal 0.2-2.0 [facility] [place] Comment on above: Performed By: #### C BC #### [facility] [place] [facility] [address] [place] [address] Dr. Aleah Peres EO # 0.1 103/ul Normal 0.0-0.7 [facility] [place] Comment on above: Performed By: #### C BC #### [facility] [place] [facility] [address] [place] [address] Dr. Aleah Peres Eosinophils/100 WBC (Bld) 1.4 % Normal 0.9-7.0 [facility] [place] Comment on above: Performed By: #### C BC #### [facility] [place] [facility] [address] [place] [address] Dr. Aleah Peres Erythrocyte distribution width (RBC) [Ratio] 13.6 % Normal 11.0-15.0 [facility] [place] Comment on above: Performed By: #### C BC #### [facility] [place] [facility] [address] [place] [address] Dr. Aleah Peres Hematocrit (Bld) [Volume fraction] 32.4 % Critically low 36.0-48.0 [facility] [place] Comment on above: Performed By: #### C BC #### [facility] [place] [facility] [address] [place] [address] Dr. Aleah Peres Hemoglobin (Bld) [Mass/Vol] 11.2 g/dL Critically low 12.0-16.0 [facility] [place] Comment on above: Performed By: #### C BC #### [facility] [place] [facility] [address] [place] [address] Dr. Aleah Peres IG # 0.02 10e3/ul Normal 0.00-0.03 [facility] [place] Comment on above: Performed By: #### C BC #### [facility] [place] [facility] [address] [place] [address] Dr. Aleah Peres IG % 0.3 % Normal 0.0-0.5 [facility] [place] Comment on above: Performed By: #### C BC #### [facility] [place] [facility] [address] [place] [address] Dr. Aleah Peres LYMPH # 2.4 103/ul Normal 1.2-3.8 [facility] [place] Comment on above: Performed By: #### C BC #### [facility] [place] [facility] [address] [place] [address] Dr. Aleah Peres Lymphocytes/100 WBC (Bld) 32.3 % Normal 20.5-60.0 [facility] [place] Comment on above: Performed By: #### C BC #### [facility] [place] [facility] [address] [place] [address] Dr. Aleah Peres MANUAL DIFF REQ NO Normal [facility] Comment on above: Performed By: #### C BC #### [facility] [place] [facility] [address] [place] [address] Dr. Aleah Peres MCH (RBC) [Entitic mass] 26.9 pg Normal 26.7-34.0 [facility] Comment on above: Performed By: #### C BC #### [facility] [place] [facility] [address] [place] [address] Dr. Aleah Peres MCHC (RBC) [Mass/Vol] 34.6 g/dL Normal 29.9-35.2 [facility] [place] Comment on above: Performed By: #### C BC #### [facility] [place] [facility] [address] [place] [address] Dr. Aleah Peres MCV (RBC) [Entitic vol] 77.9 fL Critically low 81.0-99.0 [facility] [place] Comment on above: Performed By: #### C BC #### [facility] [place] [facility] [address] [place] [address] Dr. Aleah Peres MONO # 0.7 103/ul Normal 0.3-0.8 [facility] [place] Comment on above: Performed By: #### C BC #### [facility] [place] [facility] [address] [place] [address] Dr. Aleah Peres Monocytes/100 WBC (Bld) 9.1 % Normal 1.7-12.0 [facility] Comment on above: Performed By: #### C BC #### [facility] [place] [facility] [address] [place] [address] Dr. Aleah Peres NEUT # 4.1 103/ul Normal 1.4-6.5 [facility] Comment on above: Performed By: #### C BC #### [facility] [place] [facility] [address] [place] [address] Dr. Aleah Peres Neutrophils/100 WBC (Bld) 56.5 % Normal 43.0-75.0 [facility] [place] Comment on above: Performed By: #### C BC #### [facility] [place] [facility] [address] [place] [address] Dr. Aleah Peres Platelet mean volume (Bld) [Entitic vol] 9.4 fL Critically low 9.5-13.5 [facility] Comment on above: Performed By: #### C BC #### [facility] [place] [facility] [address] [place] [address] Dr. Aleah Peres PLT 303 103/ul Normal 150-450 [facility] [place] Comment on above: Performed By: #### C BC #### [facility] [place] [facility] [address] [place] [address] Dr. Aleah Peres RBC 4.16 106/ul Critically low 4.20-5.40 [facility] Comment on above: Performed By: #### C BC #### [facility] [place] [facility] [address] [place] [address] Dr. Aleah Peres WBC 7.3 103/ul Normal 4.0-11.0 [facility] [place] Comment on above: Performed By: #### C BC #### [facility] [place] [facility] [address] [place] [address] Dr. Aleah Peres ER URINE PROFILEon 3 Bilirubin Ql (U) Negative Normal NEGATIVE [facility] Comment on above: Performed By: #### E RUR #### [facility] [place] [facility] [address] [place] [address] Dr. Aleah Peres Clarity (U) CLEAR Normal CLEAR [facility] [place] Comment on above: Performed By: #### E RUR #### [facility] [place] [facility] [address] [place] [address] Dr. Aleah Peres Color (U) YELLOW Normal YELLOW [facility] Comment on above: Performed By: #### E RUR #### [facility] [place] [facility] [address] [place] [address] Dr. Aleah OMALLEY A micrscopic examination will be performed if indicated. Normal [facility] [place] Comment on above: Performed By: #### E RUR #### [facility] [place] [facility] [address] [place] [address] Dr. Aleah Peres Glucose Ql (U) Negative Normal NEGATIVE [facility] Comment on above: Performed By: #### E RUR #### [facility] [place] [facility] [address] [place] [address] Dr. Aleah Peres Hemoglobin Ql (U) Negative Normal NEGATIVE [facility] Comment on above: Performed By: #### E RUR #### [facility] [place] [facility] [address] [place] [address] Dr. Aleah Peres Ketones Ql (U) Negative Normal NEGATIVE [facility] Comment on above: Performed By: #### E RUR #### [facility] [place] [facility] [address] [place] [address] Dr. Aleah Peres LEUKOCYTES Negative Normal NEGATIVE [facility] Comment on above: Performed By: #### E RUR #### [facility] [place] [facility] [address] [place] [address] Dr. Aleah Peres Nitrite Ql (U) Negative Normal NEGATIVE [facility] Comment on above: Performed By: #### E RUR #### [facility] [place] [facility] [address] [place] [address] Dr. Aleah Peres pH (U) 6.0 [pH] Normal 5-9 [facility] Comment on above: Performed By: #### E RUR #### [facility] [place] [facility] [address] [place] [address] Dr. Aleah Peres SPEC GRAVITY 1.020 Normal 1.005-<=1.025 [facility] Comment on above: Performed By: #### E RUR #### [facility] [place] [facility] [address] [place] [address] Dr. Aleah Peres UA PROTEIN Negative Normal NEGATIVE/ TRACE The [facility] [place] Comment on above: Performed By: #### E RUR #### [facility] [place] [facility] [address] [place] [address] Dr. Aleah Peres UR MICRO IND NOT INDICATED Normal [facility] Comment on above: Performed By: #### E RUR #### [facility] [place] [facility] [address] [address] [address] Aleah Peres Urobilinogen Qn (U) 0.2 {Edmund'U}/dL Normal 0.2 - 1. 0 [facility] Comment on above: Performed By: #### E RUR #### [facility] [place] [facility] [address] [place] [address] Dr. Aleah Peres PROF 14(COMP METB)on 023 Albumin [Mass/Vol] 3.0 g/dL Critically low 3.4-5.0 [facility] Comment on above: Performed By: #### C MP #### [facility] [place] [facility] [address] [place] [address] Dr. Aleah Peres Albumin/Globulin [Mass ratio] 0.8 {ratio} Normal [facility] Comment on above: Performed By: #### C MP #### [facility] [place] Laboratory [address] [place] [address] Dr. Aleah Peres ALP [Catalytic activity/Vol] 52 U/L Normal 46-116 [facility] Comment on above: Performed By: #### C MP #### [facility] Laboratory [address] [place] [address] Dr. Aleah Peres ALT [Catalytic activity/Vol] 15 U/L Normal 14-59 [facility] Comment on above: Performed By: #### C MP #### [facility] Laboratory [address] [place] [address] Dr. Aleah Peres Anion gap [Moles/Vol] 10.2 mmol/L Normal [facility] Comment on above: Performed By: #### C MP #### [facility] Laboratory [address] [place] [address] Dr. Aleah Peres AST [Catalytic activity/Vol] 13 U/L Critically low 15-37 [facility] Comment on above: Performed By: #### C MP #### [facility] Laboratory [address] [address] [address] Aleah Peres Bilirubin [Mass/Vol] 0.2 mg/dL Normal 0.2-1.0 [facility] Comment on above: Performed By: #### C MP #### [facility] Laboratory [address] [address] [address] Aleah Peres Calcium [Mass/Vol] 9.1 mg/dL Normal 8.5-10.1 [facility] Comment on above: Performed By: #### C MP #### [facility] Laboratory [address] [address] [address] Aleah Peres Chloride [Moles/Vol] 100 mmol/L Normal 98-107 [facility] Comment on above: Performed By: #### C MP #### [facility] Laboratory [address] [address] [address] Aleah Peres CO2 [Moles/Vol] 28.8 mmol/L Normal 21.0-32.0 [facility] Comment on above: Performed By: #### C MP #### [facility] Laboratory [address] [address] [address] Aleah Peres Creatinine [Mass/Vol] 0.56 mg/dL Normal 0.55-1.02 [facility] Comment on above: Performed By: #### C MP #### [facility] Laboratory [address] [address] [address] Aleah Peres EGFR-AF ANGUILLAN >60 Normal >=60 [facility] Comment on above: Performed By: #### C MP #### [facility] Laboratory [address] [address] [address] Aleah Peres EGFR-NON AF ANGUILLAN >60 Normal >=60 [facility] Comment on above: Performed By: #### C MP #### [facility] Laboratory [address] [address] [address] Aleah Peres Globulin (S) [Mass/Vol] 3.9 g/dL Normal [facility] Comment on above: Performed By: #### C MP #### [facility] Laboratory [address] [address] [address] Aleah Peres Glucose [Mass/Vol] 90 mg/dL Normal 74-106 [facility] Comment on above: Performed By: #### C MP #### [facility] Laboratory [address] [address] [address] Aleah Peres Potassium [Moles/Vol] 4.0 mmol/L Normal 3.5-5.1 [facility] Comment on above: Performed By: #### C MP #### [facility] Laboratory [address] [address] [address] Aleah Peres Protein [Mass/Vol] 6.9 g/dL Normal 6.4-8.2 [facility] Comment on above: Performed By: #### C MP #### [facility] Laboratory [address] [address] [address] Aleah Peres Sodium [Moles/Vol] 135 mmol/L Critically low 136-145 [facility] Comment on above: Performed By: #### C MP #### [facility] Laboratory [address] [address] [address] Aleah Peres Urea nitrogen [Mass/Vol] 4.0 mg/dL Critically low 7.0-18.0 [facility] Comment on above: Performed By: #### C MP #### [facility] Laboratory [address] [address] [address] Aleah Peres Urea nitrogen/Creatinine [Mass ratio] 7.1 mg/mg [facility] Comment on above: Performed By: #### C MP #### [facility] Laboratory [address] [address] [address] Aleah Peres PAP ACOG PANEL 2: 20 to 28on 08-02-2022 . . Normal [facility] Comment on above: Result Comment: Perf ormed at: WB Performed By: #### [id number] #### [facility] Laboratory [address] [address] [address] Aleah Peres Age Gdln ACOG Testing 20-29 [facility] Comment on above: Performed By: #### [id number] #### [facility] Laboratory [address] [place] [address] Dr. Aleah Peres DIAGNOSIS: Comment Abnormal [facility] Comment on above: Result Comment: EPIT HELIAL CELL ABNORMALITY. LOW GRADE SQUAMOUS INTRAEPITHELIAL LESION (LSIL). Performed at: WB Performed By: #### [id number] #### [facility] Laboratory [address] [place] [address] Dr. Aleah Peres Electronically signed by: Comment Normal [facility] Comment on above: Result Comment: Amena Arciniega MD, Pathologist Performed at: WB Performed By: #### [id number] #### [facility] Laboratory [address] [place] [address] Dr. Aleah Peres Methodology: Comment Normal [facility] Comment on above: Result Comment: This liquid based ThinPrep(R) pap test was screened with the use of an image guided system. Performed at: WB Performed By: #### [id number] #### [facility] Laboratory [address] [place] [address] Dr. Aleah Peres Note: Comment Normal [facility] Comment on above: Result Comment: The Pap smear is a screening test designed to aid in the detection of premalignant and malignant conditions of the uterine cervix. It is not a diagnostic procedure and should not be used as the sole means of detecting cervical cancer. Both false-positive and false-negative reports do occur. . Performed at: WB Performed By: #### [id number] #### [facility] Laboratory [address] [place] [address] Dr. Aleah Peres Pathologist Provided ICD10 Comment Normal [facility] Comment on above: Result Comment: [id number] Performed at: WB Performed By: #### [id number] #### [facility] Laboratory [address] [place] [address] Dr. Aleah Peres Performed by: Comment Normal [facility] Comment on above: Result Comment: Caitlyn Crenshaw, Blood Bank Booking Clerk (ASCP) Performed at: BA Performed By: #### [id number] #### [facility] Laboratory [address] [address] [address] Aleah Peres Recommendation: Comment Abnormal [facility] Comment on above: Result Comment: Sugg est follow up as clinically appropriate. Performed at: WB Performed By: #### [id number] #### [facility] Laboratory [address] [place] [address] Dr. Aleah Peres Reflex Criteria: Comment Normal [facility] Comment on above: Result Comment: The HPV DNA reflex criteria were not met with this specimen result therefore, no HPV testing was performed. . Performed at: WB Performed By: #### [id number] #### [facility] Laboratory [address] [address] [address] Aleah Peres Specimen adequacy: Comment Normal [facility] Comment on above: Result Comment: Sati sfactory for evaluation. Endocervical and/or squamous metaplastic cells (endocervical component) are present. Performed at: WB Performed By: #### [id number] #### [facility] Laboratory [address] [place] [address] Dr. Aleah Peres [facility] SARS-CoV-2 (COVID-19) RNA MARY ELLEN+probe Ql (Unsp spec) Not detected Normal NOT DETECTED [facility] Comment on above: Result Comment: When diagnostic [...] for this test is supported by the [place] of Health and Human Service's declaration that [...] REGQNT #### [facility] Laboratory [address] [address] [address] Aleah Peres Vital Signs Date Time Vital Sign Value Performing Clinician Nelly smith 02-05-2025 13:48-0400 Body mass index (BMI) [Ratio] 29.82 kg/m2 Amy Dobbins PA Work Phone: [facility] 02-05-2025 13:48-0400 Body weight 77.56 kg Amy Dobbins PA Work Phone: [facility] 02-05-2025 13:48-0400 Diastolic blood pressure 70 mm[Hg] Amy Dobbins PA Work Phone: [facility] 02-05-2025 13:48-0400 Systolic blood pressure 118 mm[Hg] Amy Dobbins PA Work Phone: [facility] 01-14-2025 13:56-0400 Body mass index (BMI) [Ratio] 30.91 kg/m2 Andrzej Ayesha DO Work Phone: [facility] 01-14-2025 13:56-0400 Body weight 80.4 kg Andrzej Ayesha DO Work Phone: [facility] 01-14-2025 13:56-0400 Diastolic blood pressure 70 mm[Hg] Andrzej Ayesha DO Work Phone: [facility] 01-14-2025 13:56-0400 Systolic blood pressure 104 mm[Hg] Andrzej Ayesha DO Work Phone: [facility] 12-20-2024 10:05-0400 Body mass index (BMI) [Ratio] 32.75 kg/m2 Amy Dobbins PA Work Phone: [facility] 12-20-2024 10:05-0400 Body weight 85.19 kg Amy Dobbins PA Work Phone: [facility] 12-20-2024 10:05-0400 Diastolic blood pressure 74 mm[Hg] Amy Dobbins PA Work Phone: [facility] 12-20-2024 10:05-0400 Systolic blood pressure 120 mm[Hg] Mis PA Work Phone: [facility] 12-11-2024 15:04-0400 Body mass index (BMI) [Ratio] 32.63 kg/m2 Andrzej Ayesha DO Work Phone: [facility] 12-11-2024 15:04-0400 Body weight 84.88 kg Andrzej Ayesha DO Work Phone: [facility] 12-11-2024 15:04-0400 Diastolic blood pressure 72 mm[Hg] Andrzej Ayesha DO Work Phone: [facility] 12-11-2024 15:04-0400 Systolic blood pressure 110 mm[Hg] Andrzej Ayesha DO Work Phone: [facility] 12-04-2024 13:53-0400 Body mass index (BMI) [Ratio] 32.34 kg/m2 Andrzej Ayesha DO Work Phone: [facility] 12-04-2024 13:53-0400 Body weight 84.14 kg Andrzej Ayesha DO Work Phone: [facility] 12-04-2024 13:53-0400 Diastolic blood pressure 70 mm[Hg] Andrzej Ayesha DO Work Phone: [facility] 12-04-2024 13:53-0400 Systolic blood pressure 116 mm[Hg] Andrzej Ayesha DO Work Phone: [facility] 11-21-2024 14:18-0400 Body mass index (BMI) [Ratio] 32.15 kg/m2 Henrique Wang STAMPER BLOCKER Work Phone: [facility] 11-21-2024 14:18-0400 Body weight 83.64 kg Henrique Felipe STAMPER BLOCKER Work Phone: [facility] 11-21-2024 14:06-0400 Diastolic blood pressure 70 mm[Hg] Henrique Felipe STAMPER BLOCKER Work Phone: [facility] 11-21-2024 14:06-0400 Systolic blood pressure 102 mm[Hg] Henrique Felipe STAMPER BLOCKER Work Phone: [facility] 11-07-2024 11:37-0400 Body mass index (BMI) [Ratio] 32.13 kg/m2 Andrzej Ayesha DO Work Phone: [facility] 11-07-2024 11:37-0400 Body weight 83.58 kg Andrzej Ayesha DO Work Phone: [facility] 11-07-2024 11:37-0400 Diastolic blood pressure 72 mm[Hg] Andrzej Ayesha DO Work Phone: [facility] 11-07-2024 11:37-0400 Systolic blood pressure 116 mm[Hg] Andrzej Ayesha DO Work Phone: [facility] 10-24-2024 11:24-0400 Body mass index (BMI) [Ratio] 32.34 kg/m2 Amy VILLATORO Work Phone: [facility] 10-24-2024 11:24-0400 Body weight 84.14 kg Amy VILLATORO Work Phone: [facility] 10-24-2024 11:24-0400 Diastolic blood pressure 66 mm[Hg] Amy VILLATORO Work Phone: [facility] 10-24-2024 11:24-0400 Systolic blood pressure 112 mm[Hg] Amy VILLATORO Work Phone: [facility] 10-09-2024 11:20-0400 Body mass index (BMI) [Ratio] 32.15 kg/m2 Andrzej Ayesha DO Work Phone: [facility] 10-09-2024 11:20-0400 Body weight 83.64 kg Andrzej Ayesha DO Work Phone: [facility] 10-09-2024 11:20-0400 Diastolic blood pressure 68 mm[Hg] Andrzej Ayesha DO Work Phone: [facility] 10-09-2024 11:20-0400 Systolic blood pressure 102 mm[Hg] Andrzej Ayesha DO Work Phone: [facility] 09-14-2024 10:29-0500 Body height 160 cm Los Hollins MD Work Phone: [facility] 09-14-2024 10:29-0500 Body mass index (BMI) [Ratio] 32.24 kg/m2 Los Hollins MD Work Phone: [facility] 09-14-2024 10:29-0500 Body weight 82.56 kg Los Hollins MD Work Phone: [facility] 09-14-2024 10:29-0500 Diastolic blood pressure 59 mm[Hg] Los Hollins MD Work Phone: [facility] 09-14-2024 10:29-0500 Heart rate 80 /min Los Hollins MD Work Phone: [facility] 09-14-2024 10:29-0500 Systolic blood pressure 97 mm[Hg] Los Hollins MD Work Phone: [facility] 09-11-2024 11:24-0500 Body mass index (BMI) [Ratio] 31.58 kg/m2 Amy Dobbins PA Work Phone: [facility] 09-11-2024 11:24-0500 Body weight 82.16 kg Amy Dobbins PA Work Phone: [facility] 09-11-2024 11:24-0500 Diastolic blood pressure 70 mm[Hg] Mis PA Work Phone: [facility] 09-11-2024 11:24-0500 Systolic blood pressure 98 mm[Hg] Mis PA Work Phone: [facility] 08-14-2024 12:05-0500 Body mass index (BMI) [Ratio] 31.91 kg/m2 Andrzej Ayesha DO Work Phone: [facility] 08-14-2024 12:05-0500 Body weight 83.01 kg Andrzej Ayesha DO Work Phone: [facility] 08-14-2024 12:05-0500 Diastolic blood pressure 60 mm[Hg] Andrzej Ayesha DO Work Phone: [facility] 08-14-2024 12:05-0500 Systolic blood pressure 110 mm[Hg] Andrzej Ayesha DO Work Phone: [facility] 07-16-2024 10:25-0500 Body mass index (BMI) [Ratio] 30.71 kg/m2 Amy Dobbins PA Work Phone: [facility] 07-16-2024 10:25-0500 Body weight 79.89 kg Mis PA Work Phone: [facility] 07-16-2024 10:25-0500 Diastolic blood pressure 70 mm[Hg] Amy Dobbins PA Work Phone: [facility] 07-16-2024 10:25-0500 Systolic blood pressure 120 mm[Hg] Amy Dobbins PA Work Phone: [facility] 06-07-2024 13:39-0500 Body mass index (BMI) [Ratio] 31.35 kg/m2 Nom Nurse [facility] 06-07-2024 13:39-0500 Body weight 81.56 kg [facility] Nurse [facility] 06-07-2024 13:39-0500 Diastolic blood pressure 70 mm[Hg] [facility] Nurse [facility] 06-07-2024 13:39-0500 Systolic blood pressure 118 mm[Hg] Nom Nurse [facility] 05-31-2024 09:40-0500 Body mass index (BMI) [Ratio] 30.86 kg/m2 Mis PA Work Phone: [facility] 05-31-2024 09:40-0500 Body weight 80.29 kg Mis PA Work Phone: [facility] 05-31-2024 09:40-0500 Diastolic blood pressure 72 mm[Hg] Mis PA Work Phone: [facility] 05-31-2024 09:40-0500 Systolic blood pressure 118 mm[Hg] Amy Dobbins PA Work Phone: [facility] 08-31-2023 13:43-0500 Body mass index (BMI) [Ratio] 33.2 kg/m2 Andrzej Ayesha DO Work Phone: [facility] 08-31-2023 13:43-0500 Body weight 86.36 kg Andrzej Ayesha DO Work Phone: [facility] 08-31-2023 13:43-0500 Diastolic blood pressure 70 mm[Hg] Andrzej Ayesha DO Work Phone: [facility] 08-31-2023 13:43-0500 Systolic blood pressure 114 mm[Hg] Andrzej Ayesha DO Work Phone: [facility] Healthcare Encounters Encounter Date Encounter Type Care Provider Facility Start: 05-10-2025 ambulatory Valerie L Liz Facility: [facility] [place] Start: 05-02-2025 ambulatory Valerie Liz Facility:[facility] [place] Start: 04-18-2025 End: 04-18-2025 Office outpatient visit 15 minutes Henrique Wang NP Work Phone: [facility] Comment on above: Pelvic pain in femal e Start: 04-18-2025 End: 04-18-2025 ambulatory HENRIQUE WANG Not Available Start: 04-18-2025 End: 04-18-2025 Bamboo flowsheet Henrique Wang STAMPER BLOCKER Work Phone: [facility] Start: 04-18-2025 End: 04-18-2025 Bamboo flowsheet Henrique Wang STAMPER BLOCKER Work Phone: [facility] Start: 02-05-2025 End: 02-05-2025 care visit Amy VILLATORO Work Phone: [facility] Comment on above: Encounter for survei llance of Nexplanon subdermal contraceptive; 6 weeks follow-up ([facility]); Spontaneous vaginal delivery ([facility]) Start: 02-05-2025 End: 02-05-2025 ambulatory AMY DOBBINS Not Available Start: 01-14-2025 End: 01-14-2025 ambulatory ANDRZEJ AYESHA Not Available Start: 01-14-2025 End: 01-14-2025 Patient encounter procedure Andrzej Ayesha DO Work Phone: [facility] Comment on above: Insertion of Nexplan on Start: 12-25-2024 End: 12-25-2024 Clinisync Result Encounter Andrzej Ayesha DO Work Phone: [facility] Unsolicited Start: 12-25-2024 End: 12-25-2024 Clinisync Result Encounter Andrzej Ayesha DO Work Phone: [facility] Unsolicited Start: 12-24-2024 End: 12-24-2024 Clinisync Result Encounter Andrzej Ayesha DO Work Phone: [facility] Unsolicited Start: 12-24-2024 End: 12-24-2024 Clinisync Result Encounter Andrzej Ayesha DO Work Phone: [facility] Unsolicited Start: 12-20-2024 End: 12-20-2024 ambulatory AMY DOBBINS Not Available Start: 12-20-2024 End: 12-20-2024 Office outpatient visit 15 minutes Amy Dobbins PA Work Phone: [facility] Comment on above: 37 weeks gestation o f ; Third trimester Start: 12-19-2024 End: 12-19-2024 Clinisync Result Encounter Andrzej Yaesha DO Work Phone: [facility] Unsolicited Start: 12-19-2024 End: 12-19-2024 Clinisync Result Encounter Andrzej Ayesha DO Work Phone: [facility] Unsolicited Start: 12-11-2024 End: 12-11-2024 ambulatory ANDRZEJ AYESHA Not Available Start: 12-11-2024 End: 12-11-2024 Office outpatient visit 15 minutes Andrzej Ayesha DO Work Phone: [facility] Comment on above: 35 weeks [...] 11-22-2024 End: 11-22-2024 ambulatory ANDRZEJ R AYESHA [facility] Start: 11-21-2024 End: 11-21-2024 Bamboo flowsheet Henrique Wang STAMPER BLOCKER Work Phone: [facility] Start: 11-21-2024 End: 11-21-2024 Bamboo flowsheet Henrique Wang STAMPER BLOCKER Work Phone: [facility] Start: 11-21-2024 End: 11-21-2024 ambulatory HENRIQUE FELIPE Not Available Start: 11-21-2024 End: 11-21-2024 flow sheet Henrique Wang STAMPER BLOCKER Work Phone: [facility] Comment on [...] encounter Valerie Ramirez [facility] Start: 10-24-2024 End: 10-24-2024 Office outpatient visit 15 minutes Amy VILLATORO Work Phone: [facility] Comment on above: Third trimester preg hanh; 29 weeks gestation of Start: 10-24-2024 End: 10-24-2024 ambulatory AMY DOBBINS Not Available Start: 10-23-2024 End: 10-23-2024 ambulatory ANDRZEJ [facility] Start: 10-15-2024 End: 10-15-2024 Clinisync Result [...] MD Work Phone: [facility] Comment on above: 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) Start: 09-14-2024 End: 09-14-2024 Orders Only Sharla Dunham RN [facility] Comment on above: Short cervix affecti ng (Primary Dx); Encounter for repeat ultrasound of pyelectasis, antepartum, single or unspecified fetus Start: 09-13-2024 End: 09-14-2024 Chart abstracting Los Hollins MD Work Phone: [facility] Start: 09-11-2024 End: 09-11-2024 ambulatory AMY DOBBINS Not Available Start: 09-11-2024 End: 09-11-2024 Office outpatient visit 15 minutes Amy Dobbins [...] Result Encounter Andrzej Ayesha DO Work Phone: [facility] External Department Unsolicited Start: 08-28-2024 End: 08-28-2024 ambulatory ANDRZEJ AYESHA Not Available Start: 08-14-2024 End: 08-14-2024 Bamboo flowsheet Andrzej Ayesha DO Work Phone: [facility] Start: 08-14-2024 End: 08-14-2024 Bamboo flowsheet Andrzej Ayesha DO Work Phone: [facility] Start: 08-14-2024 End: 08-14-2024 Office outpatient visit 15 minutes Andrzej Ayesha DO Work Phone: [facility] Comment on above: 18 weeks gestation o f ; Second trimester ; Screening, , for anatomic survey; Other headache syndrome; Constipation, unspecified constipation type Start: 08-14-2024 End: 08-14-2024 ambulatory ANDRZEJ AYESHA Not Available Start: 08-01-2024 End: 08-01-2024 ambulatory ANDRZEJ AYESHA Not Available Start: 07-16-2024 End: 07-16-2024 Bamboo flowsheet Amy VILLATORO Work Phone: [facility] Start: 07-16-2024 End: 07-24-2024 Bamboo flowsheet Amy VILLATORO Work Phone: [facility] Start: 07-16-2024 End: 07-24-2024 Clinisync Result Encounter Amy VILLATORO Work Phone: [facility] External Department Unsolicited Start: 07-16-2024 End: 07-16-2024 ambulatory AMY DOBBINS Not Available Start: 07-16-2024 End: 07-16-2024 Patient encounter procedure Amy VILLATORO Work Phone: [facility] Healthcare Start: 07-16-2024 End: 07-16-2024 Periodic preventive med est patient 18-39 yrs Amy VILLATORO Work Phone: [facility] Comment on above: Screening, , [...] affecting , antepartum Start: 03-06-2024 End: 03-06-2024 Patient encounter procedure [...] Start: 10-08-2022 End: 10-09-2022 ambulatory ALEXIA BARRETT Facility:[facility] Start: 10-08-2022 End: 10-08-[address] ALEXIA BARRETT . Facility: Start: 10-06-2022 End: 10-07-[address] ALEXIA BARRETT . Facility: Start: 09-17-2022 Encounter for other preprocedural examination DR ANDRZEJ HODGE . [facility] Start: 09-15-2022 End: 09-16-2022 ambulatory ANDRZEJ HODGE Facility:[facility] Start: 09-15-2022 End: 09-15-[address] [...] Date Procedure Procedure Detail Performing Clinician Start: 04-18-2025 Urnls dip stick/tabl et rgnt non-auto w/o micrscp Henrique Wang NP Work Phone: Start: 02-05-2025 Urnls dip stick/tabl et rgnt non-auto w/o micrscp Amy Dobbins PA Work Phone: Start: 01-14-2025 Urine test visual color cmprsn meths Andrzej Hodge DO Work Phone: Start: 12-25-2024 ALL CBC WITH AUTO DIFF Andrzej Hodge DO Work Phone: Start: 12-24-2024 [facility] CBC WITH PLATEL ET NO DIFFERENTIAL Andrzej Hodge DO Work Phone: Start: 12-20-2024 Urnls dip stick/tabl et rgnt non-auto w/o micrscp Amy VILLATORO Work Phone: Start: 12-19-2024 [facility] UA (CLEAN/CATCH) MOTOR BLOCK MECHANIC/MICRO IF IND. Andrzej Hodge DO Work Phone: Start: 12-11-2024 [facility] UA (CLEAN/CATCH) MOTOR BLOCK MECHANIC/MICRO IF IND. Andrzej Hodge DO Work Phone: Start: 12-11-2024 Urnls dip stick/tabl et rgnt non-auto w/o micrscp Andrzej Hodge DO Work Phone: Start: 11-26-2024 [facility] UA (CLEAN/CATCH) MOTOR BLOCK MECHANIC/MICRO IF IND. Andrzej Hodge DO Work Phone: Start: 11-07-2024 Urnls dip stick/tabl et rgnt non-auto w/o micrscp Andrzej Hodge DO Work Phone: Start: 10-15-2024 [facility] UA (CLEAN/CATCH) MOTOR BLOCK MECHANIC/MICRO IF IND. Andrzej Hodge DO Work Phone: Start: 09-11-2024 Urnls dip stick/tabl et rgnt non-auto w/o micrscp Amy VILLATORO Work Phone: Start: 08-30-2024 AFP, SERUM, OPEN SPI NA BIFIDA Andrzej Hodge DO Work Phone: Start: 08-14-2024 Urnls dip stick/tabl et rgnt non-auto w/o micrscp Andrzej Hodge DO Work Phone: Start: 07-16-2024 Urnls dip [...] malign ant neoplasm of cervix Pap Smear [facility] Start: 09-14-2025 Adult BMI Screening Adult BMI Screen ing [facility] Start: 09-14-2025 Tobacco Screening Tobacco Screening [facility] Start: 09-14-2025 End: 09-14-2025 US MFM with or without consult US MFM with or without consult Imaging Routine Short cervix affecting Encounter for repeat ultrasound of pyelectasis, antepartum, single or unspecified fetus Expected: 09/14/2025 (Approximate), Expires: 09/14/2025 DXY Work Phone: Comment on above: Expected: 09/14/2025 (Approximate), Expires: 09/14/2025 Start: 07-31-2025 End: 07-31-2025 Patient encounter procedure [facility] Start: 04-18-2025 End: 04-18-2025 Patient encounter procedure 04/18/2025 3:40 PM EDT Office Visit [facility] [address] [place] [address] Henrique Wang, STAMPER BLOCK[employer] [address] [place] [phone] Arrived [facility] Comment on above: Arrived Start: 04-18-2025 End: 10-16-2025 US Pelvis US Pelvis w/ TV Imaging Routine Pelvic pain in female Expected: 04/18/2025, Expires: 10/16/2025 [facility] Comment on above: Expected: 04/18/2025 , Expires: 10/16/2025 Start: 03-25-2025 Influenza vaccination Influenza Vacc ine [facility] Start: 02-05-2025 End: 02-05-2025 ambulatory 02/05/2025 1:30 PM EDT Visit [facility] [address] [place] [phone] Amy Dobbins, PA [address] [place], [place] [id number] [facility] Start: 12-20-2024 End: 12-20-2024 Patient encounter procedure 12/20/2024 9:50 AM EDT Routine [facility] [address] [place] [phone] Amy Dobbins, PA [address] [place] [address] [facility] Start: 12-11-2024 End: 12-11-2024 Patient encounter procedure 12/11/2024 2:30 PM EDT Routine [facility] [address] [place] [phone] Andrzej Hodge DO [address] [place], [place] [id number] [facility] Start: 12-11-2024 End: 12-11-2025 CULTURE, GROUP B STREP WITH SUSCEPTIBLITY CULTURE, GROUP B STREP WITH SUSCEPTIBLITY Lab Routine Third trimester Expected: 12/11/2024, Expires: 12/11/2025 [facility] Work Phone: Comment on above: Expected: 12/11/2024 , Expires: 12/11/2025 Start: 12-04-2024 End: 12-04-2024 Patient encounter procedure 12/04/2024 1:40 PM EDT Routine [facility] [address] [place] [phone] Andrzej Hodge, DO [address] [place] [address] [facility] Start: 11-21-2024 End: 11-21-2024 Patient encounter procedure 11/21/2024 1:50 PM EDT Routine [facility] [address] [place] [place] [phone] Amy Dobbins, PA [address] [place] [address] [facility] Start: 11-07-2024 End: 11-07-2024 Patient encounter procedure 11/07/2024 11:20 AM EDT Routine [facility] [address] [place] [place] [phone] Andrzej Hodge, DO [address] [place] [address] [facility] Start: 10-24-2024 End: 10-24-2024 Patient encounter procedure [facility] Comment on above: Arrived Start: 10-23-2024 End: 10-23-2024 Patient encounter procedure 10/23/2024 2:15 PM EDT Appointment [facility] - Ultrasound [address] [place] [address] [facility] Start: 10-09-2024 End: 10-09-2024 Patient encounter procedure 10/09/2024 11:10 AM EDT Routine [facility] [address] [place] [place] [phone] Andrzej Hodge DO [address] [place] [address] [facility] Start: 09-14-2024 End: 09-14-2024 Patient encounter procedure 09/14/2024 11:30 AM EST Office Visit [facility] [address] [place] [place] [address] Los Hollins MD [address] [facility] [address] [place] [address] Arrived [facility] Comment on above: Arrived Start: 09-12-2024 End: 09-12-2024 Patient encounter procedure 09/12/2024 10:30 AM EST Routine [facility] [address] [place] [place] [phone] Amy Dobbins PA [address] [place] [address] [facility] Start: 09-11-2024 End: 09-11-2025 CBC panel - Blood by Automated count CBC Lab Routine Diabetes mellitus screening Expected: 09/11/2024 (Approximate), Expires: 09/11/2025 [facility] Work Phone: Comment on above: Expected: 09/11/2024 (Approximate), Expires: 09/11/2025 Start: 09-11-2024 End: 09-11-2025 Measurement of glucose 1 hour after glucose challenge for glucose tolerance test Glucose tolerance, 1 hour Lab Routine Diabetes mellitus screening Expected: 09/11/2024 (Approximate), Expires: 09/11/2025 [facility] Comment on above: Expected: 09/11/2024 (Approximate), Expires: 09/11/2025 Start: 09-11-2024 End: 09-11-2024 Patient encounter procedure 09/11/2024 10:20 AM EST Routine [facility] [address] [place] [phone] Amy Dobbins PA [address] [place] [address] [facility] Start: 09-11-2024 End: 09-11-2024 Professional / ancillary services management 09/11/2024 10:00 AM EST Ancillary Procedure [facility] [address] [place] [phone] [facility] Start: 08-28-2024 End: 08-28-2024 Professional / ancillary services management 08/28/2024 1:00 PM EST Ancillary Procedure [facility] [address] [place] [phone] [facility] Start: 08-14-2024 End: 10-12-2024 Alpha fetoprotein, maternal Alpha fetoprotein, maternal Lab Routine Screening, , for anatomic survey Expected: 08/14/2024 (Approximate), Expires: 10/12/2024 [facility] Comment on above: Expected: 08/14/2024 (Approximate), Expires: 10/12/2024 Start: 08-14-2024 End: 08-14-2025 US for US OB 14+ weeks anatomy scan Imaging Routine Screening, , for anatomic survey Expected: 08/14/2024, Expires: 08/14/2025 [facility] Work Phone: Comment on above: Expected: 08/14/2024 , Expires: 08/14/2025 Start: 08-14-2024 End: 08-14-2024 Patient encounter procedure [facility] Comment on above: Arrived Start: 08-01-2024 End: 08-01-2024 Professional / ancillary services management 08/01/2024 11:30 AM EST Ancillary Procedure [facility] [address] [place] [phone] [facility] Start: 07-16-2024 End: 08-16-2024 Alpha fetoprotein, maternal Alpha fetoprotein, maternal Lab Routine Second trimester Expected: 07/16/2024 (Approximate), Expires: 08/16/2024 [facility] Comment on above: Expected: 07/16/2024 (Approximate), Expires: 08/16/2024 Start: 07-16-2024 End: 07-16-2025 US for US OB ANATOMY SINGLE W US OB CERVICAL LENGTH Imaging Routine Screening, , for anatomic survey Second trimester Expected: 07/16/2024 (Approximate), Expires: 07/16/2025 [facility] Comment on above: Expected: 07/16/2024 (Approximate), Expires: 07/16/2025 Start: 07-16-2024 End: 07-16-2025 US Pelvis transvaginal US OB transvaginal Imaging Routine Encounter for screening for cervical length Expected: 07/16/2024 (Approximate), Expires: 07/16/2025 [facility] Comment on above: Expected: 07/16/2024 (Approximate), Expires: 07/16/2025 Start: 07-09-2024 End: 07-09-2024 Patient encounter procedure 07/09/2024 2:50 PM EST Routine [facility] [address] [place] [phone] Andrzej Hodge DO [address] [place] [address] [facility] Start: 06-07-2024 End: 06-07-2025 ABO/Rh ABO/Rh Lab Routine Missed menses , unspecified gestational age Expected: 06/07/2024 (Approximate), Expires: 06/07/2025 [facility] Comment on above: Expected: 06/07/2024 (Approximate), Expires: 06/07/2025 Start: 06-07-2024 End: 06-07-2025 Blood type and Indirect antibody screen panel - Blood Type and screen Lab Routine Missed menses , unspecified gestational age Expected: 06/07/2024 (Approximate), Expires: 06/07/2025 [facility] Work Phone: Comment on above: Expected: [...] PM EST Initial [facility] [address] [place] [phone] [facility] Start: 06-07-2024 End: 06-07-2024 Professional / ancillary services management 06/07/2024 1:00 PM EST Ancillary Procedure [facility] [address] [place] [phone] [facility] Start: 05-21-2024 End: 05-21-2024 Patient encounter procedure 05/21/2024 11:00 AM EDT Office Visit [facility] [address] [place] [phone] Amy Dobbins PA [address] [place] [address] [facility] Start: 03-25-2024 Influenza vaccination Influenza Vacc ine [facility] Start: 09-14-2023 End: 09-14-2023 Patient encounter procedure 09/14/2023 3:50 PM EST Routine [facility] [address] [place] [phone] Amy Dobbins, PA [address] [place], [place] [phone] [facility] Start: 2018 DTaP,Tdap and Td Vaccines (1 - Tdap) DTaP,Tdap and Td Vaccines (1 - Tdap) [facility] Start: 2017 Adult BMI Follow Up Plan Adult BMI Follow Up Plan [facility] Start: 2017 Adult BMI Screening Adult BMI Screen ing [facility] Start: 2011 Depression Screening Depression Scre ening [facility] Start: 2011 Tobacco Screening Tobacco Screening [facility] Bacteria identified in Urine by Culture Urine culture Microbiology Routine Missed menses Ordered: 06/07/2024 [facility] Comment on above: Ordered: 06/07/2024 Bacteria identified in Urine by Culture Urine culture Microbiology Routine BV (bacterial vaginosis) Ordered: 09/11/2024 [facility] Comment on above: Ordered: 09/11/2024 CBC W Auto Different ial panel - Blood CBC and differential Lab Routine Missed menses , unspecified gestational age Ordered: 06/07/2024 [facility] Comment on above: Ordered: 06/07/2024 CHLAMYDIA TRACHOMATI S (GENITO/STI) CHLAMYDIA TRACHOMATIS (GENITO/STI) Lab Routine Second trimester Ordered: 07/16/2024 [facility] Comment on above: Ordered: 07/16/2024 CHLAMYDIA TRACHOMATI S (GENITO/STI) CHLAMYDIA TRACHOMATIS (GENITO/STI) Lab Routine Pelvic pain in female Ordered: 04/18/2025 [facility] Comment on above: Ordered: 04/18/2025 Cytology Cervical or vaginal smear or scraping study Pap Smear Pathology and Cytology Routine Well woman exam with routine gynecological exam 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 Second trimester Ordered: 07/16/2024 [facility] Work Phone: Comment on above: Ordered: 07/16/2024 Hemoglobin A1c/Hemoglobin.total in Blood Hemoglobin A1c Lab Routine Missed menses , unspecified gestational age Ordered: 06/07/2024 [facility] Comment on above: Ordered: 06/07/2024 Hepatitis B virus surface Ag [Presence] in Serum or Plasma by Immunoassay Hepatitis B surface antigen Lab Routine Missed menses , unspecified gestational age Ordered: 06/07/2024 [facility] Comment on above: Ordered: 06/07/2024 Hepatitis C virus Ab [Presence] in Serum or Plasma by Immunoassay Hepatitis C antibody Lab Routine Missed menses , unspecified gestational age Ordered: 06/07/2024 [facility] Comment on above: Ordered: 06/07/2024 HIV-1/HIV-2 antigen/antibody combination immunoassay HIV-1 and HIV-2 antibodies Lab Routine Missed menses , unspecified gestational age Ordered: 06/07/2024 [facility] Comment on above: Ordered: 06/07/2024 Neisseria gonorrhoea e DNA [Presence] in Unspecified specimen by MARY ELLEN with probe detection Neisseria gonorrhea DNA probe, direct Lab Routine Second trimester Ordered: 07/16/2024 [facility] Comment on above: Ordered: 07/16/2024 Neisseria gonorrhoea e DNA [Presence] in Unspecified specimen by MARY ELLEN with probe detection Neisseria gonorrhea DNA probe, direct Lab Routine Pelvic pain in female Ordered: 04/18/2025 [facility] Comment on above: Ordered: 04/18/2025 Reagin Ab [Presence] in Serum by RPR RPR Lab Routine Missed menses , unspecified gestational age Ordered: 06/07/2024 [facility] Comment on above: Ordered: 06/07/2024 Rubella antibody, IgG Rubella an tibody, IgG Lab Routine Missed menses , unspecified gestational age Ordered: 06/07/2024 [facility] Comment on above: Ordered: 06/07/2024 SURESWAB(R) ADVANCED VAGINITIS PLUS, TMA SURESWAB(R) ADVANCED VAGINITIS PLUS, TMA Pathology and Cytology Routine Second trimester Ordered: 07/16/2024 [facility] Comment on above: Ordered: 07/16/2024 SURESWAB(R) ADVANCED VAGINITIS PLUS, TMA SURESWAB(R) ADVANCED VAGINITIS PLUS, TMA Pathology and Cytology Routine Pelvic pain in female Ordered: 04/18/2025 [facility] Work Phone: Comment on above: Ordered: 04/18/2025 Payers Date Payer Category Payer [employer] [facility] [id number] 2022 Medicaid [id number] 2022 Medicaid [id number] 1999 Unknown [id number] 2.16.840.1.691116.3.579.2. 593 1999 Unknown [id number] 2.16.840.1.671574.3.579.2. 593 1999 Unknown [id number] 2.16.840.1.350547.3.579.2. 593 1999 Unknown [id number] 2.16.840.1.275623.3.579.2. 593 1999 Unknown [id number] 2.16.840.1.002772.3.579.2. 593 1999 Unknown [id number] 2.16.840.1.956753.3.579.2. 593 1999 Unknown [id number] 2.16.840.1.636033.3.579.2. 593 1999 Unknown [id number] 2.16.840.1.969599.3.579.2. 593 1999 Unknown [id number] 2.16.840.1.436965.3.579.2. 593 1999 Unknown [id number] 2.16.840.1.058699.3.579.2. 593 1999 Unknown [id number] 2.16.840.1.138335.3.579.2. 1286 1999 Unknown [id number] 2.16.840.1.437194.3.579.2. 1286 1999 Unknown [id number] 2.16.840.1.875457.3.579.2. 1286 1999 Unknown [id number] 2.16.840.1.985680.3.579.2. 1286 1999 Unknown [id number] 2.16.840.1.767184.3.579.2. 1259 1999 Unknown [id number] 2.16.840.1.953509.3.579.2. 1259 1999 Unknown [id number] 2.16.840.1.853898.3.579.2. 125 1999 Unknown [id number] 2.16.840.1.557662.3.579.2. 1259 1999 Unknown [id number] 2.16840.1.563044.3.579.2. 125 1999 Unknown [id number] 2.16840.1.498953.3.579.2. 1259 1999 Unknown [id number] 2.16.840.1.286036.3.579.2. 1258 1999 Unknown [id number] 2.16.840.1.288478.3.579.2. 1259 1999 Unknown [id number] 2.16840.1.012025.3.579.2. 125 1999 Unknown [id number] 2.16.840.1.822688.3.579.2. 1259 1999 Unknown [id number] 2.16.840.1.344812.3.579.2. 125 1999 Unknown [id number] 2.16.840.1.061220.3.579.2. 125 1999 Unknown [id number] 2.16.840.1.112516.3.579.2. 1258 1999 Unknown [id number] 2.16.840.1.145662.3.579.2. 1259 1999 Unknown [id number] 2.16.840.1.459509.3.579.2. 1259 1999 Unknown [id number] 2.16.840.1.473594.3.579.2. 1259 1999 Unknown [id number] 2.16.840.1.978352.3.579.2. 1259 1999 Unknown [id number] 2.16.840.1.356646.3.579.2. 1259 1999 Unknown [id number] 2.16.840.1.013416.3.579.2. 727 1959 Unknown [id number] 1959 Unknown [id number] Social History Date Type Detail Facility Start: 04-18-2023 End: 09-13-2024 Tobacco smoking status NHIS Never smoked tobacco [facility] Start: 08-31-2023 End: 02-12-2025 Alcohol intake Lifetime non-drinker (finding) [facility] Start: 06-13-2023 End: 05-31-2024 History of Social function [facility] Start: 06-13-2023 End: 05-31-2024 Tobacco use panel [facility] Start: 04-18-2023 Alcohol Comment caffeine: none [facility] Start: 02-17-2023 [facility] Start: 2000 Sex Assigned At Not on file [facility] Start: 09-13-2024 Sex Female (finding) [facility] Within the past 12 months we worried whether our food would run out before we got money to buy more. Never True [facility] Clinical Notes 09-15-2022 to 04-18-2025 Henrique Wang NP - 04/18/2025 3:40 PM SHAUNA Rose - 02/05/2025 1:30 PM Mellisa Hodge DO - 01/14/2025 1:30 PM SHAUNA Rose - 12/20/2024 9:50 AM SHAUNA Rose - 10/24/2024 11:30 AM EDT Note Date & Type Note Facility 04-18-2025 History of Presen t illness Narrative Reason for Appointment: Patient ID: Alexandra Higgins is a 24 y.o. female who presents for Pelvic Pain Patient presents today for Acute Visit. MEDICATIONS Current Outpatient Medications Medication Instructions phenazopyridine (PYRIDIUM) 100 mg, Oral, 3 times daily PRN ALLERGIES Allergies Allergen Reactions Pollen Extract Other [...] Respiratory: Negative. Cardiovascular: Negative. Gastrointestinal: Negative. Genitourinary: Positive for pelvic pain. Patient with complaints of left pelvic pain that is notable when holding urine with immediately relief after urinating. She reports no burning or frequency with urination. She reports symptoms over the last 2 weeks. Musculoskeletal: Negative. Skin: Negative. Neurological: Negative. All [...] nursing note reviewed. Exam conducted with a photographer scientific present. Vitals: Estimated body mass index is 29.82 kg/m as calculated from the following: Height as of 11/10/22: 5' 3.5 . Weight as of 02/05/25: 171 lb. BP: No LMP recorded. ASSESSMENT & PLAN ICD-10-CM 1. Pelvic pain in female R10.2 SURESWAB(R) ADVANCED VAGINITIS PLUS, TMA CHLAMYDIA TRACHOMATIS (GENITO/STI) Neisseria gonorrhea DNA probe, direct POCT urinalysis dipstick manually resulted US Pelvis w/ TV phenazopyridine (Pyridium) 100 MG tablet Patient with complaints of left low quadrant pelvic pain only noted while holding urine . Pain is not reproducible with palpation. Abdomen is soft and non tender. Urinalysis completed today and negative for nitrates, leukocytes, and blood. Patient denies any frequency with urination or dysuria. She is afebrile and otherwise well appearing. She will be scheduled for pelvic ultrasound and pelvic cultures were obtained today as well and will place her on pyridium. Patient is to schedule for a follow up telehealth after the ultrasound. I discussed with her that we may need to refer her to urology for additional evaluation if symptoms persist. Symptoms are consistent with interstitial cystitis and this was reviewed with the patient today. Documented by Henrique Wang NP on behalf of: Henrique Wang NP documented in this encounter [facility] 02-05-2025 History of Presen t illness Narrative Reason for Appointment: Patient ID: Alexandra Higgins is a 24 y.o. female who presents for Care (Pt present today for a 6 week post visit. Pt present today for 1 month Nexplanon surveillance. Nexplanon was inserted on 01/14/2025. ) Patient presents today for 1 month Nexplanon surveillance and Post Follow Up appointment. MEDICATIONS No current outpatient medications ALLERGIES [...] Negative. Respiratory: Negative. Cardiovascular: Negative. Gastrointestinal: Negative. Musculoskeletal: Negative. Skin: Negative. Neurological: Negative. Psychiatric/Behavioral: Negative. All other systems reviewed and are negative. Hematological: Negative. Endocrine: Negative. OBJECTIVE Objective: Physical Exam Constitutional: Appearance: [...] reviewed. Vitals: Estimated body mass index is 29.82 kg/m as calculated from the following: Height as of 11/10/22: 5' 3.5 . Weight as of this encounter: 171 lb. BP: 118/70 No LMP recorded (lmp unknown). ASSESSMENT & PLAN ICD-10-CM 1. Encounter for surveillance of Nexplanon subdermal contraceptive Z30.46 POCT urinalysis dipstick manually resulted POCT , urine manually resulted 2. 6 weeks follow-up ([facility]) Z39.2 POCT urinalysis dipstick manually resulted POCT , urine manually resulted 3. Spontaneous vaginal delivery ([facility]) O80 Post Follow Up: Patient is doing well but has complaints of bleeding everyday since she had the Nexplanon inserted 3 weeks ago. Pt was advised it does take up to 3 months for the body to get used to the implant. PVU. Patient presents today for 6 week visit. Patient is s/p Vaginal delivery. Patient states depression but denies suicidal and homicidal ideations. Pt is present today for a 1 month b/c surveillance for a Nexplanon. Follow Up: Patient is to return for annual unless needed otherwise. Documented by Karen Zepeda MA on behalf of: SHAUNA Rizvi documented in this encounter [facility] 01-14-2025 History of Presen t illness Narrative Reason for Appointment: Patient ID: Alexandra Higgins is a 24 y.o. female who presents for Contraception Patient presents today for Acute Visit. Current Medications: has a current medication list which includes the following Facility-Administered Medications: etonogestrel-eluting. Medical History: Active Ambulatory Problems Diagnosis Date [...] AND CURETTAGE 09/15/2022 DILATION AND CURETTAGE 10/08/2022 Allergies Allergen Reactions Pollen Extract Other Reaction(s): Eye Swelling Review of Systems: Review of Systems Constitutional: [...] nursing note reviewed. Exam conducted with a photographer scientific present. Vitals: Estimated body mass index is 30.91 kg/m as calculated from the following: Height as of 11/10/22: 5' 3.5 . Weight as of this encounter: 177 lb 4 oz. BP: 104/70 Patient's last menstrual period was 04/04/2024. Assessment/Plan Encounter Diagnosis: ICD-10-CM 1. Insertion of Nexplanon Z30.017 etonogestrel-eluting 68 mg contraceptive implant 1 each POCT , urine manually resulted Nexplanon Insertion: Patient presents today for a Nexplanon Insertion. I have reviewed/educated patient on form of contraception and patient has been made aware that Nexplanon does not prevent the contraction of STD/STI's. Patient desires to move forward with Nexplanon insertion and written consent was obtained. Patient was placed in supine position with left elbow flexed by head. Skin was marked with pen indicating insertion site. Skin was then cleansed with betadine and 3cc of lidocaine without epinephrine was injected under the skin. While allowing sufficient numbing time to take effect, the Nexplanon device was removed from it's sterile packaging and found to be in good working order. Nexplanon implant was visualized in the sheath. The skin was held taut while the Nexplanon needle device was gently inserted underneath. After Nexplanon was deployed, the insertion device was discarded in the sharps container. The Nexplanon was palpated by both provider and patient. The insertion site was covered with sterile gauze. Good hemostasis was noted. Post-procedure instructions were given. Follow Up: Patient is to return to the office as needed for any routine appointments/concerns with Nexplanon Documented by Andrzej Hodge DO on behalf of: Andrzej Hodge DO documented in this encounter [facility] 12-20-2024 History of Presen t illness Narrative Reason [...] Vitals: Estimated body mass index is 32.75 kg/m as calculated from the following: Height [...] of: SHAUNA Rizvi documented in this encounter [facility] 12-11-2024 History of Presen t illness Narrative [...] nursing note reviewed. Exam conducted with a photographer scientific present. Vitals: Estimated body mass index is [...] Andrzej Hodge DO documented in this encounter [facility] 12-04-2024 History of Presen t illness Narrative [...] nursing note reviewed. Exam conducted with a photographer scientific present. Vitals: Estimated body mass index is [...] Andrzej Hodge DO documented in this encounter [facility] 11-21-2024 History of Presen t illness [...] nursing note reviewed. Exam conducted with a photographer scientific present. Vitals: Estimated body mass index is [...] Henrique Wang NP documented in this encounter [facility] 11-07-2024 History of Presen t illness [...] nursing note reviewed. Exam conducted with a photographer scientific present. Vitals: Estimated body mass index is [...] Andrzej Hodge DO documented in this encounter [facility] 10-24-2024 History of Presen t illness Narrative Reason for Appointment: Patient ID: Mikiawnosofie Higgins is a 24 y.o. female who presents for Routine Visit Patient presents today for Return OB appointment. MEDICATIONS Current Outpatient Medications Medication Instructions docusate sodium (COLACE) 100 mg, Oral, 2 times daily PRN magnesium oxide (MAG-OX) 400 mg, Oral, Daily MV-Min-Fe Fum-FA-DHA ([facility] PO) 1 each, Daily [...] of: SHAUNA Rizvi documented in this encounter [facility] 10-24-2024 Miscellaneous Notes Formattin g of this note might be different from the original. I called pt and left a message about scheduling an apt in 4 weeks, I asked her to call me back documented in this encounter [facility] 10-24-2024 Telephone encount er Note I called pt and left a message about scheduling an apt in 4 weeks, I asked her to call me back [facility] 10-09-2024 History of Presen t [...] nursing note reviewed. Exam conducted with a photographer scientific present. Vitals: Estimated body mass index is [...] was discussed/given. Pt having cervical length with [facility] in [place] coming up. Pt states its getting harder at work. No orders of the defined types were placed in this encounter. Follow Up: Patient is to return to office in 2 week for routine OB appointment. Documented by Sharon Hare LPN on behalf of: Andrzej Hodge DO documented in this encounter [facility] 09-14-2024 History of Presen t illness [...] Yes Have you been seen here at [facility] in a previous ? No Recent ER visits or hospitalizations? ER visit within the last month, was vomiting blood (was old it was just irritation from vomiting so much) Bring blood sugar log or meter with you today? (Please bring them with you for every visit at [facility]) N/A Flu vaccine (May-September)? 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 Patient does have ultrasound scheduled with us. Thank you for allowing me to participate in Alexandra Higgins . If there any questions please do not hesitate to contact us. Sincerely, LOS HOLLINS MD documented in this encounter [facility] 09-11-2024 History of Presen t [...] 2.0 cm. We will refer patient to [facility] for further evaluation. Pt also complains of odor with discharge with progesterone, we will send in flagyl Documented by SHAUNA Rizvi on behalf of: SHAUNA Rizvi documented in this encounter [facility] 08-14-2024 History of Presen t illness [...] nursing note reviewed. Exam conducted with a photographer scientific present. Vitals: Estimated body mass index is [...] Andrzej Hodge DO documented in this encounter [facility] 07-16-2024 History of Presen t illness [...] nursing note reviewed. Exam conducted with a photographer scientific present. Vitals: Estimated body mass index is [...] without difficulty and patient was given [facility] order to have obtained. Orders Placed [...] of: SHAUNA Rizvi documented in this encounter [facility] 06-07-2024 History of Presen t illness [...] or undercooked meat, and stay away from [facility]. Patient has also been advised to [...] Brianna Perry LPN documented in this encounter [facility] 05-31-2024 History of Presen t illness [...] of: SHAUNA Rizvi documented in this encounter [facility] 03-06-2024 History of Presen t illness Narrative Pt presents today for a pre-employment drug screen, BAT, Physical Exam, Audiogram, and PFT for [place]. Pt verified by photo ID. documented in this encounter [facility] 08-31-2023 History of Presen t illness [...] nursing note reviewed. Exam conducted with a photographer scientific present. Vitals: Estimated body mass index is [...] Andrzej Hodge DO documented in this encounter [facility] 09-15-2022 Note EXAMINATION: US PREG [...] 07:41 [facility] 09-15-2022 Note OPERATIVE NOTE OPERATION DATE: 09/15/2022 PROCEDURE: Suction D AND C. PREOPERATIVE DIAGNOSIS: First trimester missed at 10 weeks. POSTOPERATIVE DIAGNOSIS: First trimester missed at 10 weeks. ANESTHESIA: General. SURGEON: Andrzej Hodge D.O. SOIL ENGINEER: None. FINDINGS: Products of conception. SPECIMEN: [...] products of conception were removed using an 9-Luxembourgish suction curette. Excellent hemostasis was noted. The patient tolerated the procedure well. Sponge, lap, and needle counts were correct x 2. All instruments were then removed from the patient's vagina. The patient was taken to the Recovery Room in stable condition. ?? [facility] Evaluation note Diagnosis Third trimester state, incidental [...] or unspecified fetus [facility] Diagnosis Short cervix affecting with delivery- Primary Cervical shortening, delivered, with or without mention of antepartum condition [facility] Diagnosis Second trimester [...] [facility] Diagnosis 37 weeks gestation of Third trimester state, incidental [facility] Diagnosis Insertion of Nexplanon [facility] Diagnosis Encounter for surveillance of Nexplanon subdermal contraceptive 6 weeks follow-up ([facility]) Spontaneous vaginal delivery ([facility]) Normal delivery [facility] Diagnosis Pelvic pain in female Unspecified symptom associated with female genital organs documented in this [facility]ructionsNot on filedocumented in this encounterPro[facility] SystemInstructionsNot on filedocumented in this encounterProMedica Health SystemInstructionsNot on filedocumented in this encounterProMediky Health SystemInstructionsNot on filedocumented in this encounterProOhio [facility] Summary Purpose Family History No [...] section and content) DATE CREATED AUTHOR 10/12/2022 [facility] [place] DATE CREATED AUTHOR AUTHOR'S ORGANIZ ATION 12/08/2022 [facility] DATE CREATED AUTHOR AUTHOR'S ORGANIZ ATION 09/16/2024 [facility] DATE CREATED AUTHOR AUTHOR'S ORGANIZ ATION 10/26/2024 [facility] DATE CREATED AUTHOR AUTHOR'S ORGANIZ ATION 11/27/2024 [facility] DATE CREATED AUTHOR AUTHOR'S ORGANIZ ATION 04/26/2025 [facility] DATE CREATED AUTHOR AUTHOR'S ORGANIZ ATION 05/05/2025 [facility] Reason for Visit (unrecogniz ed section and content) Reason Comments Routine Visit Reason Comments Abdominal Cramping Pt is currently preg nant @ 8 weeks. Pt complains of cramping and dehydrated w/. Reason Comments Amenorrhea Reason Comments short cervix Hx PTD 36w6d Reason Comments Contraception Reason Comments Care Pt present today for a 6 week post visit. Pt present today for 1 month Nexplanon surveillance. Nexplanon was inserted on 01/14/2025. Reason Comments Pelvic Pain FOR RECORDS PERTAINING TO PATIENTS WHO ARE [...] BE BASED ON THE PRIMARY CLINICAL RECORDS. [facility]. provides no warranty or guarantee of the accuracy or completeness of information in this document.
--- NOTE | 2025-05-06 10:26 | ED.GENADUL1 ---
HPI HPI - General Adult General Chief complaint: Abdominal Pain Stated complaint: ABDOMINAL PAIN Time Seen by Provider: 05/06/25 10:21 Source: patient Mode of arrival: walk-in Limitations: no limitations History of Present Illness HPI narrative: 24-year-old female presents for abdominal pain. She has been having this issue on and off for months. It goes all the way across her abdomen. No constipation or diarrhea. No trauma or fever or vomiting. She does not complain of flank pain or dysuria. Related Data Home Medications ?Medication ?Instructions ?Recorded ?Confirmed No Known Home Medications 05/06/25 05/06/25 Allergies Allergy/AdvReac Type Severity Reaction Status Date / Time grass pollen Allergy Unknown Verified 05/06/25 10:13 Opioid HPI Opioid Management Most Recent Opioid Data: Last Pain Scale 4 Today, 10:14 Ur Phencyclidine Scrn, (NEGATIVE) Negative 12/24/24, 10:30 Review of Systems ROS Narrative A ten point review of systems is negative except as noted above. [facility] Medical History (Updated 05/06/25 @ 11:41 by Francisco Javier Evans MD) Asthma ?J45.909 - Unspecified asthma, uncomplicated (ICD-10) Surgical History (Updated 10/19/23 @ 03:31 by Dariusz James) H/O dilation and curettage ?Z98.890 - Other specified postprocedural states (ICD-10) Social History Smoking status: Current every day smoker Highest level of school completed/degree received: high school graduate Little interest or pleasure in doing things: not at all Feeling down, depressed, or hopeless: not at all Exam Narrative Exam Narrative: Nurses note and vital signs reviewed and patient is not hypoxic. General:The patient appears well and in no apparent distress.Patient is resting comfortably on cart. Skin:Warm, dry, no pallor noted.There is no rash noted. Head:Normocephalic, atraumatic Eye: Normal conjunctiva, no drainage Ears, Nose, Mouth, and Throat: oral mucosa is moist. Nares patent. Cardiovascular:Regular Rate and Rhythm Respiratory:Patient is in no distress, no accessory muscle use, lungs are clear to auscultation, no wheezing, rales or rhonchi Back:non-tender GI: Soft and nondistended. No masses. No apparent tenderness on palpation. Musculoskeletal: The patient has no evidence of calf tenderness, no pitting edema, symmetrical pulses noted bilaterally Neurological: Awake and alert Psychiatric:Cooperative Constitutional Vital Signs, click to edit/add: Last Vital Signs Temp 98.8 F 05/06/25 10:14 Pulse 71 05/06/25 10:14 Resp 20 05/06/25 10:14 BP 122/81 05/06/25 10:14 Pulse Ox 100 05/06/25 10:14 O2 Del Method Room Air 05/06/25 10:14 Course Vital Signs Vital signs: Vital Signs Temperature 98.8 F 05/06/25 10:14 Pulse Rate 71 05/06/25 10:14 Respiratory Rate 20 05/06/25 10:14 Blood Pressure 122/81 05/06/25 10:14 Pulse Oximetry 100 05/06/25 10:14 Oxygen Delivery Method Room Air 05/06/25 10:14 Temperature 98.8 F 05/06/25 10:14 Pulse Rate 71 05/06/25 10:14 Respiratory Rate 20 05/06/25 10:14 Blood Pressure 122/81 05/06/25 10:14 Pulse Oximetry 100 05/06/25 10:14 Oxygen Delivery Method Room Air 05/06/25 10:14 Medical Decision Making MDM Narrative Medical decision making narrative: Her workup is negative including gallbladder ultrasound. She has an appointment with a new PCP in a few days and she will keep that appointment. Her symptoms have been intermittent for a few months and the cause is uncertain at this point. Treatment diagnosis and follow-up were discussed with the patient. I do not feel that CT of the abdomen is clinically indicated. Differential Diagnosis Differential Diagnosis: UTI, , gallbladder disease, pancreatitis Lab Data Lab results reviewed: Yes I reviewed the patient's lab results Labs: Lab Results 05/06/25 05/06/25 Range/Units 10:20 10:28 WBC 11.8 H (4.0-11.0) 10^3/uL RBC 4.41 (4.20-5.40) 10^6/uL Hgb 11.2 L (12.0-16.0) g/dL Hct 35.4 L (36.0-48.0) % MCV 80.3 L (81.0-99.0) fL MCH 25.4 L (26.7-34.0) pg MCHC 31.6 (29.9-35.2) g/dL RDW 14.5 (11.0-15.0) % Plt Count 377 (150-450) 10^3/uL MPV 10.4 (9.5-13.5) fL Neut % (Auto) 68.2 (43.0-75.0) % Lymph % (Auto) 21.1 (20.5-60.0) % [place] % (Auto) 9.0 (1.7-12.0) % Eos % (Auto) 1.0 (0.9-7.0) % Baso % (Auto) 0.4 (0.2-2.0) % Neut # (Auto) 8.1 H (1.4-6.5) 10^3/uL Lymph # (Auto) 2.5 (1.2-3.8) 10^3/uL [place] # (Auto) 1.1 H (0.3-0.8) 10^3/uL Eos # (Auto) 0.1 (0.0-0.7) 10^3/uL Baso # (Auto) 0.1 (0.0-0.1) 10^3/uL Abs Immat Gran (auto) 0.03 (0.00-0.03) 10^3/uL Imm/Tot Granulo (auto) 0.3 (0.0-0.5) % Sodium 140 (136-145) mmol/L Potassium 4.1 (3.5-5.1) mmol/L Chloride 108 H (98-107) mmol/L Carbon Dioxide 23.5 (21.0-32.0) mmol/L Anion Gap 12.6 BUN 12.0 (7.0-18.0) mg/dL Creatinine 0.65 (0.55-1.02) mg/dL Est GFR ( Amer) >60 (>=60 mL/min/1.73m^2) Est GFR (Non-Af Amer) >60 (>=60 mL/min/1.73m^2) BUN/Creatinine Ratio 18.5 Glucose 94 (74-106) mg/dL Calcium 8.9 (8.5-10.1) mg/dL Total Bilirubin 0.1 L (0.2-1.0) mg/dL Direct Bilirubin <0.1 (0.0-0.2) mg/dL AST 16 (15-37) U/L ALT 25 (14-59) U/L Alkaline Phosphatase 60 (46-116) U/L Total Protein 7.9 (6.4-8.2) g/dL Albumin 3.5 (3.4-5.0) g/dL Globulin 4.4 g/dL Albumin/Globulin Ratio 0.8 Amylase 50 (25-115) U/L Lipase 40.0 (16.0-77.0) U/L Serum HCG, Qual Negative (NEGATIVE) Urine Color Yellow (YELLOW) Urine Clarity Clear (CLEAR) Urine pH 7.5 (5.0-9.0) Ur Specific [place] 1.015 (1.005-1.025) Urine Protein Negative (NEG/TRACE) mg/dL Urine Glucose (UA) Negative (NEGATIVE) mg/dL Urine Ketones Negative (NEGATIVE) mg/dL Urine Occult Blood Moderate A (NEGATIVE) Urine Nitrite Negative (NEGATIVE) Urine Bilirubin Negative (NEGATIVE) Urine Urobilinogen 0.2 (0.2-1.0) EU/dL Ur Leukocyte Esterase Negative (NEGATIVE) Urine RBC 10-20 A (0-2) #/HPF Urine WBC None seen (NONE SEEN) #/HPF Ur Squamous Epith Cells Few A (NONE/RARE) #/LPF Urine Crystals None seen (None Seen) #/HPF Urine Bacteria Trace A (NONE SEEN) #/HPF Urine Casts None seen (NONE SEEN) #/LPF Urine Mucus None seen (NONE SEEN) Ur Culture Indicated? No Discharge Plan Discharge Chief Complaint: Abdominal Pain Clinical Impression: Abdominal pain Patient Disposition: Home, Self-Care Time of Disposition Decision: 11:41 Condition: Good Mode of Transportation: Private Vehicle Prescriptions / Home Meds: No Action No Known Home Medications Print Language: Irish Instructions: Abdominal Pain (ED) Referrals: Physician,Non-Staff, [Primary Care Provider] - 1 week
[2025-05-06 10:35] LABS: Glucose Urine UA NEGATIVE (NEGATIVE)
[2025-05-06 10:35] LABS: Hematocrit 35.4 % (36.0-48.0); Hemoglobin 11.2 g/dL (12.0-16.0); Immature Granulocytes Abs Auto 0.03 10^3/uL (0.00-0.03); Immature Granulocytes Pct Auto 0.3 % (0.0-0.5); Lymphocytes Absolute Auto 2.5 10^3/uL (1.2-3.8); Mean Corpuscular HGB Conc 31.6 g/dL (29.9-35.2); Mean Corpuscular Hemoglobin 25.4 pg (26.7-34.0); Mean Corpuscular Volume 80.3 fL (81.0-99.0); Platelet Count 377 10^3/uL (150-450); Red Blood Count 4.41 10^6/uL (4.20-5.40); White Blood Count 11.8 10^3/uL (4.0-11.0)
[2025-05-06 10:51] LABS: Alanine Aminotransferase 25 U/L (14-59); Albumin Globulin Ratio 0.8; Albumin Level 3.5 g/dL (3.4-5.0); Alkaline Phosphatase 60 U/L (46-116); Amylase 50 U/L (25-115); Anion Gap 12.6; Aspartate Amino Transferase 16 U/L (15-37); Blood Urea Nitrogen 12.0 mg/dL (7.0-18.0); Calcium 8.9 mg/dL (8.5-10.1); Carbon Dioxide 23.5 mmol/L (21.0-32.0); Chloride 108 mmol/L (98-107); Estimated GFR (African America >60 (>=60 mL/min/1.73m^2); Estimated GFR (Non-African Ame >60 (>=60 mL/min/1.73m^2); Globulin 4.4 g/dL; Glucose 94 mg/dL (74-106); Lipase 40.0 U/L (16.0-77.0); Potassium 4.1 mmol/L (3.5-5.1); Sodium 140 mmol/L (136-145); Total Protein 7.9 g/dL (6.4-8.2)
[2025-05-06 10:54] LABS: Cast Seen? NONE SEEN #/LPF (NONE SEEN); Crystals Seen? None Seen #/HPF (None Seen); Urine Culture Indicated NO
--- NOTE | 2025-05-06 11:01 | US_ITS ---
[facility] [place] [id number] Patient Name: CHULA CHAVEZ MRN: [id number] date: 2000 Sex: F Assigned Patient Location: ER Current Patient Location: ER Accession/Order Number: [id number] Exam Date: 05/06/2025 11:02 Report Date: 05/06/2025 11:26 At the request of: MICHAEL MENDOZA MD Procedure: US right upper quadrant LIMITED RIGHT UPPER QUADRANT ABDOMINAL ULTRASOUND CLINICAL HISTORY: Generalized abdominal pain for the past 2 months. COMPARISON: CT 07/01/2021 The gallbladder is physiologically distended without shadowing calculi, wall thickening or pericholecystic fluid. No intra- or extrahepatic biliary dilatation is evident. The common duct measures 3 - 4 mm. The liver is normal in echogenicity. No intrahepatic masses are seen. There is appropriate hepatopetal flow within the main portal vein. The pancreas shows no significant sonographic abnormality. Evaluation of the right kidney reveals no hydronephrosis or fluid within Shah's pouch. US/US right upper quadrant IMPRESSION: NEGATIVE ULTRASOUND OF THE RIGHT UPPER QUADRANT. Impression dictated by: Sharon Ramirez M.D. 05/06/2025 11:26 AM Dictation Location: [place] [address] Electronically authenticated by: [id number] Y Date: 05/06/2025 11:26
[2025-05-06 11:50] VITALS: BP 118/70; PULSE 64; O2SAT 100
== END 2025-05-06 11:50 | disposition home or self-care (01) ==
PROVIDERS: Emergency Provider Emergency Medicine
DX: R10.84 Generalized abdominal pain (principal)
CPT/HCPCS: 36415; 76705; 80048; 80076; 81001; 82150; 83690; 84703; 85025; 99284